=== PATIENT | male | born 1980 | race Caucasian/White ===

== ENCOUNTER 2022-11-26 14:06 | Inpatient (IN) | payer MEDICAID, SELFPAY ==
[2022-11-26] VITALS (12 sets, daily range): BP systolic 94–130; BP diastolic 54–80; PULSE 106–126; RESP 16–97; TEMP 36.3–36.9; O2SAT 16–97; BMI 32.3
--- NOTE | ~2022-11-26 | XR_ITS ---
EXAMINATION: XR CHEST CLINICAL INFORMATION: Left loculated pleural effusion COMPARISON: 12/08/2022 TECHNIQUE: Frontal view of the chest was obtained. XR/XR chest 1V FINDINGS AND IMPRESSION: The tip of the pigtail pleural drainage catheter projects lateral to the left apex. No significant change in the pleural-based opacity along the left hemithorax from pleural thickening and/or loculated effusion. Also, no change in patchy airspace opacity of the left lung and hyperlucency from cavitation in left upper lobe. No new pulmonary abnormalities. Cardiac silhouette is normal in size. No pulmonary edema or other significant change.
--- NOTE | ~2022-11-26 | XR_ITS ---
EXAMINATION: XR CHEST CLINICAL INFORMATION: Loculated left pleural effusion. Recent insertion of left apical chest catheter COMPARISON: Chest x-ray 12/03/2022. CT chest 12/06/2022 TECHNIQUE: Frontal view of the chest was obtained. FINDINGS: The right lung is expanded and clear. Newly placed left apical chest catheter is noted overlying the left posterior fourth rib. There is a pocket of air collection in the left upper midlung region. There is loculated left pleural effusion or moderate pleural thickening. Loss of left lung volume with elevated left hemidiaphragm seen. Heart size is normal. Pulmonary vascularity is normal. XR/XR chest 1V IMPRESSION: 1. Newly placed left apical chest catheter is noted overlying the left posterior fourth rib interval reduction in the air-fluid level or gas collection.. There is a pocket of air collection in the left upper midlung region, unchanged. 2. There is loculated left pleural effusion or moderate pleural thickening. 3. The right lung is clear.
--- NOTE | ~2022-11-26 | XR_ITS ---
EXAMINATION: XR CHEST CLINICAL INFORMATION: Follow-up hydropneumothorax COMPARISON: 11/30/2022 TECHNIQUE: Frontal view of the chest was obtained. FINDINGS: Compared to yesterday's exam, there appears to be more pleural fluid present. A pneumothorax is most likely still present but the pleural border is not well seen on the current study is a chest tube remains in place on the left. The right lung is grossly clear. There is mild cardiac enlargement. XR/XR chest 1V IMPRESSION: Left-sided pleural effusion has increased in size. A pneumothorax is most likely still present although not well seen.
--- NOTE | ~2022-11-26 | CT_ITS ---
EXAMINATION: CT CHEST WITHOUT CONTRAST CLINICAL INFORMATION: Evaluate cavitary lesion COMPARISON: Chest CT 12/14/2022 TECHNIQUE: Multidetector volumetric CT imaging of the chest was done. Axial MIP volume rendering provided. Sagittal and coronal reformatted images were obtained. This CT examination was performed using dose optimization techniques as appropriate, variously including the following: *Automated exposure control *Adjustment of mA and/or kV according to patient size (this includes techniques or standardized protocols for targeted exams where dose is matched to indication/reason for exam; i.e. extremities or head) *Use of iterative reconstruction technique DLP: 353 mGy-cm FINDINGS: LUNGS: Right apical pigtail drain removed in the interval. Similar peripheral airspace consolidation in the left lung most confluent extensively in the left upper lobe and lung apex with redemonstrated air-filled cavitation. Loculated air-fluid collection in the left anterior pleural space is decreased in size in the interval. Overall small amount of left pleural fluid persists. There are bubbles of subcutaneous emphysema along the lateral left chest wall including a linear tract of fluid through the left lateral sixth intercostal space series 5 image 424, new since prior. Small 3 mm right middle lobe pulmonary nodule and perifissural nodule along the horizontal fissure on series 5 image 512 and 519 respectively are unchanged. Mild subsegmental atelectasis in the inferior right lung base. Central airways clear. MEDIASTINUM: No cardiomegaly or pericardial effusion. No thoracic aortic aneurysm. Normal caliber main pulmonary artery. Redemonstrated prominent presumably reactive mediastinal lymph nodes, largest of left prevascular space lymph node measuring 0.9 cm in short axis dimension. CORONARY ARTERY CALCIFICATION: None visualized on this study. PLEURA: Small amount of left pleural fluid and scattered small amount of left pleural gas. No right pleural effusion. AXILLA/chest wall: No lymphadenopathy. Subcutaneous edema and some swelling of the left serratus anterior and adjacent soft tissues, new since prior. No appreciable loculated fluid collection in the left chest wall UPPER ABDOMEN: Unremarkable. OSSEOUS STRUCTURES: No acute fracture or suspicious osseous lesion. CT/CT chest wo IV con IMPRESSION: 1. Similar peripheral airspace consolidation in the left lung most confluent in the left upper lobe and lung apex with cavitation. 2. Small amount of left pleural fluid, decreased in size in the interval. 3. New subcutaneous edema and swelling of the left serratus anterior and adjacent soft tissues. No appreciable loculated fluid collection identified in the left chest wall. 4. Interval removal of left apical pigtail drain.
--- NOTE | ~2022-11-26 | XR_ITS ---
EXAMINATION: XR CHEST CLINICAL INFORMATION: Assess placement of pigtail catheter COMPARISON: 12/11/2022 TECHNIQUE: Frontal view of the chest was obtained. FINDINGS: Small pigtail catheter overlies the left apex. Similar opacification throughout the left lung with associated pleural effusion. Cavitary consolidation of the left upper lung. No definite pneumothorax. The right lung is clear. The cardiomediastinal silhouette is within normal limits. XR/XR chest 1V IMPRESSION: Small pigtail catheter overlies the left apex. Similar position to prior at the location of the cavitary consolidation. No definite pneumothorax. Similar appearance of the left lung with associated pleural effusion and airspace opacity.
--- NOTE | ~2022-11-26 | XR_ITS ---
EXAMINATION: XR CHEST CLINICAL INFORMATION: Loculated left pleural effusion. COMPARISON: Chest 12/07/2022 TECHNIQUE: Frontal view of the chest was obtained. FINDINGS: The right lung is well-expanded and clear. Previously seen lower left large bore chest tube is not seen. There is a previously placed pigtail catheter in the left lung apex with expanded left upper lobe. Left upper lobe consolidation is better visualized at this time. Heart size and pulmonary vascularity is normal. No gross bony abnormality except for mild positional scoliosis. XR/XR chest 1V IMPRESSION: 1. Better expanded left lung with a left apical pigtail catheter is stable. The left lower chest tube catheter has been removed. 2. Right lung is clear.
--- NOTE | ~2022-11-26 | XR_ITS ---
EXAMINATION: XR CHEST CLINICAL INFORMATION: Dyspnea COMPARISON: CT 11/26/2022 TECHNIQUE: Frontal view of the chest was obtained. FINDINGS: There is significantly worsened opacification of the left hemithorax compared to prior, suspected to be due to a combination of pleural effusion and underlying parenchymal opacity. Somewhat rounded region of faint lucency overlying the mid to upper hemithorax may correspond to a cavitary region identified on prior CT with surrounding consolidation. There is additional lucency towards the apex which could represent superimposed pneumothorax. Right lung is well-expanded and appears clear. Cardiomediastinal silhouette is not adequately assessed due to the left hemithorax opacification. No acute osseous findings are seen. XR/XR chest 1V IMPRESSION: Significantly worsened opacification of the left hemithorax, suspected to be due to a combination of pleural effusion and underlying parenchymal opacity. Region of lucency towards the apex raises concern for superimposed pneumothorax, which could be more definitively assessed with CT. This critical result was discussed with Dr. Escobedo on 11/30/2022 3:09 AM, and it was ascertained that the content and urgency of the report was understood at the time of direct communication.
--- NOTE | ~2022-11-26 | CT_ITS ---
EXAMINATION: CT chest wo IV con. CLINICAL INFORMATION: Reason for Exam followup left pleural effusion COMPARISON: Prior CT 11/30/2022. TECHNIQUE: Multidetector volumetric CT imaging of the chest was done. Axial MIP volume rendering provided. Sagittal and coronal reformatted images were obtained. This CT examination was performed using dose optimization techniques as appropriate, variously including the following: *Automated exposure control *Adjustment of mA and/or kV according to patient size (this includes techniques or standardized protocols for targeted exams where dose is matched to indication/reason for exam; i.e. extremities or head) *Use of iterative reconstruction technique CONTRAST: Noncontrasted study. DLP: 766 mGy-cm FINDINGS: SECURITIES TELLER: LINES/TUBES: Left chest tube inserted properly positioned with its tip in the posterior mid pleural space. LUNGS: Redemonstration of cavitating left upper lobe parahilar mass roughly 7 cm, diffuse airspace dense consolidation infiltrate, atelectasis of left lung. Right lung remain relatively spared except for minimal patchy airspace mild infiltrate right upper and lower lobes. AIRWAYS: No large intrabronchial mass. No bronchiectasis, there is air bronchogram left lower lobe, left upper lobe. PLEURA: There is residual small left pleural effusion. Left pneumothorax has not changed. MEDIASTINUM AND MANSOOR: Previously described mediastinal shift resolved. Prominent lymph node in the mediastinum and aortopulmonary window and left hilar, VESSELS: HEART AND PERICARDIUM: Thoracic aorta is normal in size. Heart is normal in size. No pericardial effusion. No significant coronary calcifications. Pulmonary arteries are normal in size. LOWER NECK, AXILLA: The visualized thyroid gland is unremarkable. No axillary mass or adenopathy. VISUALIZED ABDOMEN: Unremarkable CHEST WALL AND BONES: No chest wall mass. The visualized bony thorax is within normal limits. CT/CT chest wo IV con IMPRESSION: * Status post left chest tube placement, previously described mediastinal shift to the right resolved. Left apical pneumothorax unchanged. Improved left pleural effusion. * Redemonstration of cavitating left upper lobe central mass roughly 7 cm. * Profound atelectasis and consolidation of left lung. * Right lung remain relatively spared except for minimal patchy nodular opacity and/or airspace infiltrate right upper and lower lobes. * Prominent mediastinal and left hilar lymph notes.
--- NOTE | ~2022-11-26 | XR_ITS ---
EXAMINATION: XR CHEST CLINICAL INFORMATION: Status post left VATS decortication, POD #4. COMPARISON: Chest radiographs 12/18/2022, 12/17/2022, 12/16/2022, 12/12/2022 TECHNIQUE: Portable upright AP view of the chest was obtained. FINDINGS: There are stable postsurgical changes on the left with mild volume loss, left chest tube, stable small loculated peripheral gas lateral apex, and pleural thickening/loculated fluid. Right lung is clear. The vascularity is normal. There is no pneumothorax. Some scant left subcutaneous emphysema is decreased. The heart is normal in size. XR/XR chest 1V IMPRESSION: 1. Stable postsurgical changes left chest. No pneumothorax. 2. Left subcutaneous emphysema decreased. 3. Right lung clear.
--- NOTE | ~2022-11-26 | XR_ITS ---
EXAMINATION: XR CHEST CLINICAL INFORMATION: Status post left decortication COMPARISON: 12/12/2012 TECHNIQUE: Frontal view of the chest was obtained. FINDINGS: Cardiac leads overlie the chest. Left-sided chest tube remains in place. There is increased subcutaneous emphysema along the lateral left chest wall. Redemonstration of peripheral opacity of the left lung with opacification extending to the apex. The right lung is clear. The cardiomediastinal silhouette is unchanged. XR/XR chest 1V IMPRESSION: Left-sided chest tube remains in place. Increased subcutaneous emphysema along the lateral left chest wall. Persistent peripheral opacity of the left lung.
--- NOTE | ~2022-11-26 | CT_ITS ---
PROCEDURE: CT GUIDED INSERTION, PLEURAL TUNNEL CATHETER CLINICAL INFORMATION: Left lung empyema, upper lobe pneumonia with a left chest tube. Now presents with left upper lung air-fluid level. COMPARISON: None TECHNIQUE: Following explaining CT fluoroscopy-guided placement of left upper lobe chest tube catheter procedure, benefits and risks, a written consent was obtained. Patient was placed supine on CT table and preliminary CT imaging was obtained through the upper chest. An optimal axial CT plane was selected and markers were placed along the left anterolateral chest and repeat CT imaging was performed. Optimal lead marker was selected and marked on the skin. The marked site was cleaned and draped in usual sterile manner with 2% chlorhexidine solution. 1% lidocaine was injected at puncture site. Through a small skin incision a long 5 Cymro Yueh catheter was advanced from the skin into the left apical air-fluid collection under fluoroscopic guidance. After observing needle tip in the center of the air-fluid collection, the stylet was withdrawn and 0.035 J-wire was placed within left upper lobe and the needle was withdrawn. A 5 Cymro APD catheter with a stiffener was inserted over the guidewire and placed within the left upper lobe. The guidewire and stiffener were removed and the thread was pulled making sure the pigtail was formed. The pigtail was connected to waterseal equipment via connecting cannula. The catheter was anchored to the skin with 3-0 nylon nonabsorbable sutures. Sterile dressing applied postprocedure. Patient tolerated procedure extremely well. Conscious sedation was utilized during the exam and patient monitored by IR nursing and radiologist for 20 minutes during the exam. CT examination was performed using dose optimization techniques as appropriate, variously including the following: *Automated exposure control *Adjustment of mA and/or kV according to patient size (this includes techniques or standardized protocols for targeted exams where dose is matched to indication/reason for exam; i.e. extremities or head) *Use of iterative reconstruction technique DLP: 589 mGy-cm FINDINGS: On preliminary CT imaging there is large bore left chest tube catheter. There is chronic scarring/atelectasis and pneumonia in the left lower lobe. There is air-fluid level in the left upper lobe. There is a new pigtail catheter inserted in the left upper lobe air-fluid level collection. CT/CT chest tube placement IMPRESSION: Successful insertion of a [address] Cymro APD catheter under CT fluoroscopic guidance with its tip in the left upper lobe air-fluid level collection.
--- NOTE | ~2022-11-26 | XR_ITS ---
EXAMINATION: XR CHEST CLINICAL INFORMATION: Hypoxia COMPARISON: Chest 12/01/2022 TECHNIQUE: Frontal view of the chest was obtained. FINDINGS: The lungs are hypoexpanded with left lower lobe consolidation. A left chest tube remains in the mid chest with persistent left upper lung pneumothorax. The right lung remains clear and expanded. Heart size and pulmonary vascularity is normal. No gross bony abnormality seen. XR/XR chest 1V IMPRESSION: Left lower lobe consolidation. Left chest tube remains in the mid chest with a left upper lung pneumothorax. No change from 12/01/2022.
--- NOTE | ~2022-11-26 | XR_ITS ---
EXAMINATION: XR CHEST CLINICAL INFORMATION: Status post chest tube placement. COMPARISON: Chest radiograph 11/30/2022 at 2:[address] chest 11/30/2022 at 11:51 AM. TECHNIQUE: Frontal view of the chest was obtained. FINDINGS: Redemonstration of a left sided hydropneumothorax with decreased amount of fluid but increased amount of air compared to priors following placement of a chest tube. Again noted near complete opacification of the left lung, not convincingly changed. The right lung is clear. Stable appearance of the cardiomediastinal silhouette. No acute osseous abnormalities. XR/XR chest 1V IMPRESSION: 1. Left-sided hydropneumothorax with decreased amount of fluid but increased amount of air compared to priors following placement of a chest tube. 2. Stable near complete opacification of the left lung.
--- NOTE | ~2022-11-26 | XR_ITS ---
EXAMINATION: XR CHEST CLINICAL INFORMATION: Postop day 3 status post left VATS decortication. COMPARISON: 12/17/2022 TECHNIQUE: Frontal view of the chest was obtained. FINDINGS: Left-sided chest tube remains in place. Decreasing subcutaneous emphysema of the left chest wall. Decreased volume of the left lung, similar to prior with peripheral opacity extending to the apex. Known loculated pleural effusion. Similar gas at the apex. The right lung is clear. The cardiomediastinal silhouette is unchanged. XR/XR chest 1V IMPRESSION: No significant change from prior. Left-sided chest tube remains in place. Loculated left pleural effusion. Similar gas at the apex.
--- NOTE | ~2022-11-26 | XR_ITS ---
EXAMINATION: XR chest 1V CLINICAL INFORMATION: Reason for Exam Assess left pleural effusion S/P TPA therapy X 2. COMPARISON: Prior study one day earlier. TECHNIQUE: XR chest 1V Tubes and lines: None Lungs and pleura: Redemonstration of near complete opacification of the left hemithorax sparing. Left lung apex has not significantly changed, suggesting probably large pleural effusion, possible underlying pulmonary infiltrate and/or atelectasis. Right lung remain clear. Left chest tube remain in place. Left apical pneumothorax unchanged. Heart and mediastinum: The mediastinum is within normal limits.. Bones/soft tissue: Skeletal structures included are normal for patient's age. XR/XR chest 1V IMPRESSION: There has been no significant change, Redemonstration of near total opacification of the left hemithorax due to underlying pleural effusion and underlying atelectasis. Stable left pneumothorax. Left chest tube remain in place.
--- NOTE | ~2022-11-26 | CT_ITS ---
EXAMINATION: CT CHEST WITHOUT CONTRAST CLINICAL INFORMATION: Worsening cavitary pneumonia. Question pneumothorax. COMPARISON: 11/26/2022 TECHNIQUE: Multidetector volumetric CT imaging of the chest was done. Axial MIP volume rendering provided. Sagittal and coronal reformatted images were obtained. This CT examination was performed using dose optimization techniques as appropriate, variously including the following: *Automated exposure control. *Adjustment of mA and/or kV according to patient size (this includes techniques or standardized protocols for targeted exams where dose is matched to indication/reason for exam; i.e. extremities or head). *Use of iterative reconstruction technique. DLP: 388 mGy-cm FINDINGS: LUNGS: Patient has developed a large hydropneumothorax with near complete opacification of the left hemithorax and mass effect and midline structure shift to the right. There appears be occlusion of the distal left mainstem bronchus. Patient has also developed multiple regions of ground-glass opacification within the right lung. There are also a few more solid right lower lobe densities consistent with atelectasis. Region of necrotic disease again noted within the left lung. MEDIASTINUM: There is mediastinal shift to the right. Visualized portions of the thyroid gland appear unremarkable. Heart normal size. There is minimal pericardial fluid present. No coronary artery calcification is seen. No thoracic aortic aneurysm. There is an enlarged aortopulmonic window lymph node measuring 1.1 cm in short axis. There are other mediastinal lymph nodes present but not pathologically enlarged. It is difficult to evaluate the left hilum for mass or adenopathy due to the consolidation. There is some fat stranding seen within the mediastinum. CORONARY ARTERY CALCIFICATION: None visualized on this study. PLEURA: There is a large left hydropneumothorax. AXILLA: No lymphadenopathy. UPPER ABDOMEN: Unremarkable. OSSEOUS STRUCTURES: Unremarkable. CT/CT chest wo IV con IMPRESSION: 1. Progression in consolidation of the left lung with large hydropneumothorax as well as region of necrotic lung. Bronchoscopy would be of help in better evaluation of the left bronchial system and possible mucous plug as well as possible drainage with chest tube placement to assist in lung re-expansion. 2. Shift of mediastinal structures to the right with developing right lung disease as described. Fleischner guidelines were followed.
--- NOTE | ~2022-11-26 | CT_ITS ---
EXAMINATION: CT CHEST WITHOUT CONTRAST CLINICAL INFORMATION: Left loculated pleural effusion. COMPARISON: 12/09/2022 and studies dating back to 11/26/2022. TECHNIQUE: Multidetector volumetric CT imaging of the chest was done. Axial MIP volume rendering provided. Sagittal and coronal reformatted images were obtained. This CT examination was performed using dose optimization techniques as appropriate, variously including the following: *Automated exposure control *Adjustment of mA and/or kV according to patient size (this includes techniques or standardized protocols for targeted exams where dose is matched to indication/reason for exam; i.e. extremities or head) *Use of iterative reconstruction technique DLP: 269 mGy-cm FINDINGS: LUNGS: Central airways are patent. No right-sided bronchial wall thickening or bronchiectasis is appreciated. No confluent parenchymal disease within the right lung is seen. Sub-4 mm densities are present. There is a 5 mm noncalcified nodule seen within the right middle lobe on image [address] series #5. There are a few stable ground-glass opacities seen within the right hemithorax. There is a 7 mm perifissural density consistent with lymph node along the junctions of the right main and horizontal fissures seen on image 460 of 749. This is stable in appearance. There is a 4 mm subpleural density seen within the right lower lobe on image 328 of 749. Within the left lung there is no significant change appreciated from study of 12/09/2022. There is mildly increased pleural density about the lateral left chest wall superiorly likely related to slight increase in loculated pleural fluid in this location. Small gauge left-sided chest tube is seen about the left apex. There is left upper lobe consolidation and some cavitation present. Bronchial wall thickening is present. MEDIASTINUM: Visualized thyroid gland appears unremarkable. Heart normal size. Minimal pericardial fluid is seen. No thoracic aortic aneurysm is present. AP window lymphadenopathy is again seen without significant change. CORONARY ARTERY CALCIFICATION: None visualized on this study. PLEURA: There is marked pleural thickening/loculated effusion in the left hemithorax. AXILLA: No lymphadenopathy. UPPER ABDOMEN: Unremarkable. OSSEOUS STRUCTURES: There appears to be previous right shoulder surgery. No suspicious destructive bony lesions are identified. CT/CT chest wo IV con IMPRESSION: Similar appearance to cavitary left upper lobe lung disease with chest tube in place. No interval decrease in size of the loculated pleural fluid with question mild increase in fluid laterally. No significant change in left aortopulmonary window lymphadenopathy. Fleischner guidelines were followed.
--- NOTE | ~2022-11-26 | CT_ITS ---
EXAMINATION: CT CHEST WITHOUT CONTRAST CLINICAL INFORMATION: Left hydropneumothorax. COMPARISON: Chest CT from 11/26/2022, 12/04/2022 and 12/06/2022. TECHNIQUE: Multidetector volumetric CT imaging of the chest was done. Axial MIP volume rendering provided. Sagittal and coronal reformatted images were obtained. This CT examination was performed using dose optimization techniques as appropriate, variously including the following: *Automated exposure control *Adjustment of mA and/or kV according to patient size (this includes techniques or standardized protocols for targeted exams where dose is matched to indication/reason for exam; i.e. extremities or head) *Use of iterative reconstruction technique DLP: 493 mGy-cm FINDINGS: LUNGS AND PLEURA: Mild frothy secretions layer along the posterior tracheal wall and proximal left mainstem bronchus. Interval mild improvement in patchy groundglass opacity of the right upper lobe compared to 12/06/2022. A 0.5 cm nodular focus in the right middle lobe has slightly decreased in size (image 378, series 5). Interval increased groundglass opacity around what is likely a lymph node along the distal right major fissure. No right-sided pleural effusion. Again noted is the left upper lobe consolidation and cavitation from pneumonia with surrounding groundglass opacity and interstitial thickening. Multiple linear, streaky opacities of atelectasis in the left lung, mildly improved compared to 12/06/2022. The tip of the pigtail drainage catheter projects lateral to the left upper lobe. Trace residual loculated pleural fluid overlies the anterolateral aspect of the left upper lobe. Also, mild residual loculated pleural fluid projects lateral to the lingula. The volume of loculated pleural fluid posteromedial to the left upper lobe and posteromedial to the left lower lobe is similar compared to 12/06/2022. CARDIOVASCULAR: The heart size is normal. No pericardial effusion. Pulmonary arteries and thoracic aorta are normal in caliber. CORONARY ARTERY CALCIFICATION: None. MEDIASTINUM AND LOWER NECK: The esophagus and thyroid gland unremarkable. LYMPHATICS: Mild lymphadenopathy within the mediastinum is unchanged compared to 12/06/2022. UPPER ABDOMEN: Mild splenomegaly (spleen measures 13.8 cm AP dimension). Adrenal glands are normal. SKELETAL AND CHEST WALL: Thoracic vertebra have normal density, height and alignment. The disc spaces are normal. No suspicious bone lesions. Trace fluid and foci of gas in soft tissue of the left lateral chest wall corresponds to location of previously placed, removed chest tube. CT/CT chest wo IV con IMPRESSION: * The cavitary left upper lobe pneumonia remains similar in appearance for a 12/06/2022. * Significant interval decreased size of the loculated pleural fluid anterolateral to left upper lobe after pigtail drainage catheter placement. * Otherwise, other areas of loculated pleural fluid of the left hemithorax remain similar compared to 12/06/2022. * Mild improvement in patchy opacities of pneumonitis within the right upper lobe. No right-sided pleural effusion. * Persistent mild lymphadenopathy is present within the mediastinum.
--- NOTE | ~2022-11-26 | CT_ITS ---
EXAMINATION: CT CHEST WITHOUT CONTRAST CLINICAL INFORMATION: Upper respiratory symptoms x2 weeks COMPARISON: Chest radiograph performed same day TECHNIQUE: Multidetector volumetric CT imaging of the chest was done. Axial MIP volume rendering provided. Sagittal and coronal reformatted images were obtained. This CT examination was performed using dose optimization techniques as appropriate, variously including the following: *Automated exposure control *Adjustment of mA and/or kV according to patient size (this includes techniques or standardized protocols for targeted exams where dose is matched to indication/reason for exam; i.e. extremities or head) *Use of iterative reconstruction technique DLP: 503 mGy-cm FINDINGS: CHEST WALL/AXILLA: No axillary lymphadenopathy. LUNGS: An approximately 6.8 cm cavitating left upper lobe pulmonary mass with surrounding groundglass with crazy paving. Multiple additional solid pulmonary nodules, predominantly throughout the left lung many with central cavitation, are also seen including a 2.9 cm centrally cavitary left upper lobe pulmonary nodule, 5:143 and a 2.0 cm centrally cavitary left upper lobe pulmonary nodule, 5:172, with few additional scattered areas of groundglass and consolidation. There is mild interlobular septal thickening in the left lung which may reflect trace superimposed edema. MEDIASTINUM: Heart is normal in size. No mediastinal lymphadenopathy. No hilar lymphadenopathy. CORONARY ARTERY CALCIFICATION: No significant coronary artery calcification appreciated on this exam. PLEURA: Small left pleural effusion. UPPER ABDOMEN: Unremarkable OSSEOUS STRUCTURES: Unremarkable. CT/CT chest wo IV con IMPRESSION: An approximately 6.8 cm centrally cavitating left upper lobe pulmonary mass with surrounding groundglass and crazy paving. Multiple additional solid pulmonary nodules are seen predominantly throughout the left lung, many with central cavitation as well as few scattered areas of groundglass and consolidation. Differential considerations would include both infectious/inflammatory or neoplastic etiology, including pulmonary tuberculosis, or other infectious etiology, including atypical infections and septic emboli, granulomatous etiology, or malignant etiology. Recommend correlation with clinical symptoms and consider further evaluation with bronchoscopy. Small left pleural effusion with trace left pulmonary edema. Fleischner guidelines were followed. The findings and recommendations were discussed with Dr. Beatty by telephone at 11/26/2022 8:33 PM and it was ascertained that the content and urgency of the report was understood at the time of direct communication.
--- NOTE | ~2022-11-26 | XR_ITS ---
EXAMINATION: XR CHEST CLINICAL INFORMATION: Evaluate left-sided hydropneumothorax. COMPARISON: 12/09/2022 TECHNIQUE: Frontal view of the chest was obtained. FINDINGS: No new abnormalities compared to 12/09/2022. Again noted is consolidation and cavitary lucency of left upper lobe, left-sided pleural thickening/effusion and several streaky opacities of atelectasis of the left mid to lower lung. The right lung is well expanded. The groundglass opacities of the right lung observed on CT imaging are not radiographically visible. Cardiomediastinal silhouette remains normal in size and contour. The tip of a pigtail pleural change catheter projects lateral to the left lung apex. XR/XR chest 1V IMPRESSION: * There is stable appearance of pleural thickening/loculated pleural effusion of the left hemithorax. Pigtail drainage catheter is stable position, projecting lateral to the left apex. * No change in cavitary left upper lobe pneumonia compared to 12/09/2022.
--- NOTE | ~2022-11-26 | XR_ITS ---
EXAMINATION: XR CHEST CLINICAL INFORMATION: Cough and chest pain. COMPARISON: None TECHNIQUE: 2 views of the chest were obtained. FINDINGS: The lungs are expanded with left upper lobe consolidation. Rest lungs are clear. The heart size and perivascular is normal. No gross bony abnormality seen. XR/XR chest 2V IMPRESSION: Left upper lobe consolidation/infiltrate.
--- NOTE | ~2022-11-26 | XR_ITS ---
EXAMINATION: XR CHEST CLINICAL INFORMATION: Postop day 2 status post L VATS mechanical decortication. COMPARISON: 12/16/2022 TECHNIQUE: Frontal view of the chest was obtained. FINDINGS: Left-sided chest tube remains in place. The right lung is well-expanded. Persistent subcutaneous emphysema along the left chest wall. Peripheral opacity of the left lung remains, similar to prior. This has the appearance of a loculated effusion. Possible hydropneumothorax component at the apex. The cardiomediastinal silhouette is unchanged. XR/XR chest 1V IMPRESSION: No significant change from prior. Loculated left pleural effusion with possible hydropneumothorax at the apex. Left chest tube remains in place. Persistent subcutaneous emphysema.
--- NOTE | 2022-11-26 14:11 | ECG_ITS ---
Test Reason : CP Blood Pressure : / mmHG Vent. Rate : 121 BPM Atrial Rate : 121 BPM P-R Int : 134 ms QRS Dur : 110 ms QT Int : 352 ms P-R-T Axes : 065 063 013 degrees QTc Int : 499 ms Sinus tachycardia Minimal voltage criteria for LVH, may be normal variant ( [place] product ) Abnormal ECG No previous ECGs available Referred By: Generic ED Physician Electronically Signed By:DREA CHAU
--- NOTE | 2022-11-26 14:11 | ED.GENADULT ---
HPI - General Adult General Chief complaint: Chest Pain <ANURAG Chan - Last Filed: 11/26/22 14:15> Stated complaint: chest pain <ANURAG Chan - Last Filed: 11/26/22 14:15> Time Seen by Provider: 11/26/22 15:57 <ANURAG Chan - Last Filed: 11/26/22 14:15> Source: patient <Carrie Rodriguez NP - Last Filed: 11/26/22 19:51> Mode of arrival: ambulatory <Carrie Rodriguez NP - Last Filed: 11/26/22 19:51> Limitations: no limitations <Carrie Rodriguez NP - Last Filed: 11/26/22 19:51> History of Present Illness HPI narrative: 42-year-old male presents with 2 weeks of upper respiratory symptoms, shortness of breath, cough and chest pain. States that the chest pain has been present for about 1 week. Patient states that he cannot sleep because of coughing, and just feels unwell. He has not been able to eat and drink because of this illness. He is on Suboxone which he takes daily. <Carrie Rodriguez NP - Last Filed: 11/26/22 19:51> Onset (ago): week(s) (2) <Carrie Rodriguez NP - Last Filed: 11/26/22 19:51> Location: chest <Carrie Rodriguez NP - Last Filed: 11/26/22 19:51> Radiation: non-radiation <Carrie Rodriguez NP - Last Filed: 11/26/22 19:51> Severity: moderate <Carrie Rodriguez NP - Last Filed: 11/26/22 19:51> Severity scale (1-10): 7 <Carrie Rodriguez NP - Last Filed: 11/26/22 19:51> Quality: aching <Carrie Rodriguez NP - Last Filed: 11/26/22 19:51> Pain Consistency: constant <Carrie Rodriguez NP - Last Filed: 11/26/22 19:51> Relieving factors: none <Carrie Rodriguez NP - Last Filed: 11/26/22 19:51> Exacerbating factors: eating, movement and other (Speaking) <Carrie Rodriguez NP - Last Filed: 11/26/22 19:51> Associated symptoms: cough, diaphoresis, fever/chills, loss of appetite, malaise and shortness of breath <Carrie Rodriguez NP - Last Filed: 11/26/22 19:51> Treatments prior to arrival: none <Carrie Rodriguez NP - Last Filed: 11/26/22 19:51> Related Data Home medications: Home Medications Medication Instructions Recorded Confirmed bisacodyl 5 mg tablet,delayed 5 mg PO BEDTIME 11/26/22 11/26/22 release buprenorphine 12 mg-naloxone 3 mg 0.5 film buccal TID@0600,1000,1400 11/26/22 11/26/22 sublingual film (Suboxone) buprenorphine 12 mg-naloxone 3 mg 0.5 strip sublingual DAILY@1800 11/26/22 11/26/22 sublingual film (Suboxone) buprenorphine 8 mg-naloxone 2 mg 1 film buccal BEDTIME 11/26/22 11/26/22 sublingual film (Suboxone) cetirizine 10 mg tablet 10 mg PO BEDTIME PRN Allergy 11/26/22 11/26/22 Symptoms divalproex 500 mg tablet,delayed 4 tab PO BEDTIME 11/26/22 11/26/22 release docusate sodium 100 mg capsule 100 mg PO BEDTIME 11/26/22 11/26/22 ibuprofen 800 mg tablet 800 mg PO Q6H PRN Back Pain 11/26/22 11/26/22 mirtazapine 45 mg tablet 1 tab PO BEDTIME 11/26/22 11/26/22 olanzapine 5 mg tablet 2 tab PO BEDTIME 11/26/22 11/26/22 prazosin 2 mg capsule 2 mg PO BEDTIME 11/26/22 11/26/22 <ANURAG Chan - Last Filed: 11/26/22 14:15> Allergies/adverse reactions: Allergies Allergy/AdvReac Type Severity Reaction Status Date / Time quetiapine [From Seroquel] Allergy Chest Pain Verified 11/26/22 17:13 <ANURAG Chan - Last Filed: 11/26/22 14:15> Review of Systems Review of Systems: Constitutional: No Fever, No Chills ENT/Mouth: No Ear Pain, No Hoarseness, No sore throat Eyes: No Eye Pain, No Swelling, No Redness, No Foreign Body Cardiovascular: No Chest Pain, No SOB Respiratory: No Cough, No Dyspnea Gastrointestinal: No Nausea, No Vomiting, No Diarrhea, No abdominal Pain Genitourinary: No Dysuria, No Hematuria Musculoskeletal: positive joint pain, No Myalgias, No Joint Swelling Skin: No Skin lacerations, No rash Neuro: No Weakness, No Numbness, No Paresthesias, No Loss of Consciousness, No Dizziness, No Headache Psych: No Anxiety/Panic, No Depression Heme/Lymph: no easy bruising, no Lymphadenopathy Endocrine: No Polyuria, No Polydipsia <Carrie Rodriguez NP - Last Filed: 11/26/22 19:51> Yes all other systems are reviewed and are negative <Carrie Rodriguez NP - Last Filed: 11/26/22 19:51> PMFSH Past Medical History Attestation statement: The following information was validated with the patient. <Carrie Rodriguez NP - Last Filed: 11/26/22 19:51> Source: old records reviewed <Carrie Rodriguez NP - Last Filed: 11/26/22 19:51> Medical History: Medical History Anxiety Bipolar 1 disorder PTSD (post-traumatic stress disorder) Substance use disorder <ANURAG Chan - Last Filed: 11/26/22 14:15> Social History Social History: Social History Alcohol intake: never Patient Tobacco Use Status: Former Tobacco user Smoked in Last 30 Days: Yes Use of substances other than those prescribed or required for medical reasons: Yes Substance Use Type: Marijuana Advance Directives: No Nutrition Risks: No Nutritional Risk <ANURAG Chan - Last Filed: 11/26/22 14:15> Physical Exam ED Vital Signs: Vital Signs - 24 hr 11/26/22 14:15 11/26/22 14:38 11/26/22 15:47 Temperature 97.4 F 98.0 F Pulse Rate 126 H 120 H 120 H Respiratory Rate 20 21 H 22 H Blood Pressure 94/54 L 94/67 115/64 Pulse Oximetry 94 94 92 Oxygen Delivery Method Room Air Room Air Nasal Cannula Oxygen Flow Rate 2 11/26/22 16:27 11/26/22 16:43 11/26/22 16:44 Temperature 98.0 F Pulse Rate 117 H 117 H Respiratory Rate 22 H 97 H 17 Blood Pressure 99/69 Pulse Oximetry 96 Oxygen Delivery Method Nasal Cannula Oxygen Flow Rate 3 11/26/22 18:17 Temperature 98 F Pulse Rate 118 H Respiratory Rate 16 Blood Pressure 117/77 Pulse Oximetry 97 Oxygen Delivery Method Nasal Cannula Oxygen Flow Rate 4 BMI result Body Mass Index 32.3 <ANURAG Chan - Last Filed: 11/26/22 14:15> Vital Signs - 24 hr 11/26/22 14:15 11/26/22 14:38 11/26/22 15:47 Temperature 97.4 F 98.0 F Pulse Rate 126 H 120 H 120 H Respiratory Rate 20 21 H 22 H Blood Pressure 94/54 L 94/67 115/64 Pulse Oximetry 94 94 92 Oxygen Delivery Method Room Air Room Air Nasal Cannula Oxygen Flow Rate 2 11/26/22 16:27 11/26/22 16:43 11/26/22 16:44 Temperature 98.0 F Pulse Rate 117 H 117 H Respiratory Rate 22 H 97 H 17 Blood Pressure 99/69 Pulse Oximetry 96 Oxygen Delivery Method Nasal Cannula Oxygen Flow Rate 3 11/26/22 18:17 Temperature 98 F Pulse Rate 118 H Respiratory Rate 16 Blood Pressure 117/77 Pulse Oximetry 97 Oxygen Delivery Method Nasal Cannula Oxygen Flow Rate 4 BMI result Body Mass Index 32.3 <Carrie Rodriguez NP - Last Filed: 11/26/22 19:51> Appearance: Alert. Oriented X3. Moderate distress. Eyes: Pupils equal, round and reactive to light. ENT: Pharynx normal. Neck: Normal inspection. Neck supple. CVS: Tachycardic heart rate and rhythm. Respiratory: Tachypneic with moderate respiratory distress. Coarse lung sounds throughout. Abdomen: Soft and nontender. Skin: Skin warm and dry. Normal skin color. Normal skin turgor. Extremities: No lower extremity edema. Gait not assessed for safety. Neuro: No motor deficit. No sensory deficit. Cranial nerves 2-12 intact <Carrie Rodriguez NP - Last Filed: 11/26/22 19:51> Course Course Course Narrative: RME performed by Katya Honeycutt PA-C. Patient is a 42 year old male presenting to the emergency department with chest pain. Patient states that over the last week he has been sick with a cough and not feeling well. Labs, EKG, chest XR, swabs, ordered. Patient placed back in the waiting room pending results and room availability. <ANURAG Chan Last Filed: 11/26/22 14:15> RME performed by Katya Honeycutt PA-C. Patient is a 42 year old male presenting to the emergency department with chest pain. Patient states that over the last week he has been sick with a cough and not feeling well. Labs, EKG, chest XR, swabs, ordered. Patient placed back in the waiting room pending results and room availability. 16:03 patient is tachycardic in the 120s, requiring O2 at 2 L and 90%, chest x-ray indicates pneumonia. Blood pressure was 94/54 upon presentation with heart rate of 126. Will start fluid resuscitation, antibiotics, lactic, cultures at this time. 16:20 42-year-old male presents with 2 weeks of upper respiratory symptoms, states that he is having a difficult time breathing, and he has been coughing so much that he cannot patient is on methadone, and is not the best historian. He is requiring O2 at this time to keep his oxygen saturation at 90%, he normally does not wear oxygen at home. Sepsis alert was called, fluid resuscitation of of 3 L, for appropriate body weight. White count is 43.5. Respiratory called for high flow, and albuterol treatments. BUN 29, creatinine 2.80, I do not have prior labs or records for this patient. 16:40 D-dimer coagulated prior to lab drawn. This D-dimer that is recorded is inaccurate. Source of tachycardia most likely sepsis. 17:28 discussion with hospitalist, plan of care is to admit for pneumonia, hypoxia and sepsis. <Carrie Rodriguez NP - Last Filed: 11/26/22 19:51> Consultations Consultation #1: Zan <Carrie Rodriguez NP - Last Filed: 11/26/22 19:51> Medications Administered Discontinued Medications Generic Name Dose Route Start Last Admin Trade Name Freq PRN Reason Stop Dose Admin Albuterol Sulfate 10 mg 11/26/22 16:27 11/26/22 16:43 Albuterol Sulfate (0.083%) 2.5 Mg/3 Ml Vial.Neb INHALE 11/26/22 16:28 10 mg ONCE ONE Administration Sodium Chloride 1,000 mls @ 999 mls/hr 11/26/22 16:15 11/26/22 17:39 Ns IVCONT 11/26/22 17:15 Infused .Q1H1M MAHENDRA Infusion Ceftriaxone Sodium 1 gm/ 50 mls @ 100 mls/hr 11/26/22 16:04 11/26/22 17:02 Sodium Chloride IV 11/26/22 16:33 Infused ONCE ONE Infusion Azithromycin 500 mg/ Sodium 250 mls @ 125 mls/hr 11/26/22 16:04 11/26/22 19:25 Chloride IV 11/26/22 18:03 Infused ONCE ONE Infusion Sodium Chloride 1,000 mls @ 999 mls/hr 11/26/22 16:15 11/26/22 18:30 Ns IVCONT 11/26/22 17:15 Infused .Q1H1M MAHENDRA Infusion Sodium Chloride 1,000 mls @ 999 mls/hr 11/26/22 16:30 11/26/22 19:26 Ns IVCONT 11/26/22 17:30 Infused .Q1H1M MAHENDRA Infusion Methylprednisolone Sodium Succinate 125 mg 11/26/22 16:24 11/26/22 17:01 Methylprednisolone Sod Succ 125 Mg/2 Ml Vial IVPUSH 11/26/22 16:25 125 mg ONCE ONE Administration <ANURAG Chan - Last Filed: 11/26/22 14:15> Medications Administered Discontinued Medications Generic Name Dose Route Start Last Admin Trade Name Tundeq PRN Reason Stop Dose Admin Albuterol Sulfate 10 mg 11/26/22 16:27 11/26/22 16:43 Albuterol Sulfate (0.083%) 2.5 Mg/3 Ml Vial.Neb INHALE 11/26/22 16:28 10 mg ONCE ONE Administration Sodium Chloride 1,000 mls @ 999 mls/hr 11/26/22 16:15 11/26/22 17:39 Ns IVCONT 11/26/22 17:15 Infused .Q1H1M MAHENDRA Infusion Ceftriaxone Sodium 1 gm/ 50 mls @ 100 mls/hr 11/26/22 16:04 11/26/22 17:02 Sodium Chloride IV 11/26/22 16:33 Infused ONCE ONE Infusion Azithromycin 500 mg/ Sodium 250 mls @ 125 mls/hr 11/26/22 16:04 11/26/22 19:25 Chloride IV 11/26/22 18:03 Infused ONCE ONE Infusion Sodium Chloride 1,000 mls @ 999 mls/hr 11/26/22 16:15 11/26/22 18:30 Ns IVCONT 11/26/22 17:15 Infused .Q1H1M MAHENDRA Infusion Sodium Chloride 1,000 mls @ 999 mls/hr 11/26/22 16:30 11/26/22 19:26 Ns IVCONT 11/26/22 17:30 Infused .Q1H1M MAHENDRA Infusion Methylprednisolone Sodium Succinate 125 mg 11/26/22 16:24 11/26/22 17:01 Methylprednisolone Sod Succ 125 Mg/2 Ml Vial IVPUSH 11/26/22 16:25 125 mg ONCE ONE Administration <Carrie Rodriguez NP - Last Filed: 11/26/22 19:51> Medical Decision Making Differential Diagnosis Differential Diagnoses: The differential diagnosis associated with the presentation includes <Carrie Rodriguez NP - Last Filed: 11/26/22 19:51> Pneumonia, sepsis, ARDS <Carrie Rodriguez NP - Last Filed: 11/26/22 19:51> Admission/Observation Consideration of admission/observation: Escalation of care including admission/observation considered <Carrie Rodriguez NP - Last Filed: 11/26/22 19:51> Patient requires admission <Crarie Rodriguez NP - Last Filed: 11/26/22 19:51> Consult Healthcare Provider Management of the patient was discussed with: Hospitalist <Carrie Rodriguez NP - Last Filed: 11/26/22 19:51> Lab Data MDM Lab Attestation statement: I reviewed the patient's lab results. <Carrie Rodriguez NP - Last Filed: 11/26/22 19:51> Result Diagrams: 11/26/22 15:59 11/26/22 15:59 <ANURAG Chan - Last Filed: 11/26/22 14:15> Labs: Lab Results 11/26/22 11/26/22 11/26/22 Range/Units 15:41 15:59 15:59 WBC 43.5 H* (4.8-10.8) X10*3/uL RBC 4.47 L (4.60-5.80) X10*6/uL Hgb 12.6 L (14.0-18.0) g/dl Hct 39.6 L (42.0-52.0) % MCV 88.6 (80.0-98.0) fL MCH 28.2 (27.0-33.0) pg MCHC 31.8 (31.0-36.0) g/dl RDW 15.2 (11.0-16.0) % Plt Count 181 (160-400) X10*3/uL MPV 10.7 (9.4-12.4) fL Immature Gran % (Auto) Cancelled Neut % (Auto) Cancelled Lymph % (Auto) Cancelled Woodward % (Auto) Cancelled Eos % (Auto) Cancelled Baso % (Auto) Cancelled Lymph # (Auto) Cancelled Woodward # (Auto) Cancelled Eos # (Auto) Cancelled Baso # (Auto) Cancelled Abs Immat Gran (auto) Cancelled Absolute Neuts (auto) Cancelled Absolute Nucleated RBC 0.020 H (0.0-0.012) X10*3/uL Nucleated RBC % (auto) 0.0 (0.0-0.2) /100WBC Neutrophils % (Manual) 81 H (45-73) % Band Neutrophils % 8 H (3-5) % Lymphocytes % (Manual) 5 L (20-40) % Monocytes % (Manual) 6 (2-11) % Abs Neuts (Manual) 38.7 H (2.0-8.3) X10*3/uL Lymphocytes # (Manual) 2.2 (1.2-4.9) X10*3/uL Monocytes # (Manual) 2.6 H (0.1-1.2) X10*3/uL Toxic Vacuolation PRESENT Platelet Estimate NORMAL (NORMAL) Plt Morphology Comment NORMAL RBC Morphology NORMAL PT INR APTT D-Dimer High Sensitivty NG/ML VBG pH (7.32-7.43) VBG pCO2 mmHg VBG pO2 mmHg VBG HCO3 (22-26) mmol/L VBG O2 Saturation % VBG Base Excess mmol/L Sodium 139 (135-145) mmol/L Potassium 3.5 (3.3-5.1) mmol/L Chloride 99 (96-108) mmol/L Carbon Dioxide 25 (22-29) mmol/L Anion Gap 19 (12-20) BUN 29 H (9-16) mg/dL Creatinine 2.80 H (0.5-1.4) mg/dL Estim Creat Clear Calc 44.9 Estimated GFR 25 Random Glucose 145 H (60-115) mg/dL Lactic Acid (0.5-2.0) mmol/L Lactic Acid F/U @ 2Hr (0.5-2.0) mmol/L Calcium 8.7 (8.4-10.2) mg/dL Magnesium 1.8 (1.6-2.6) mg/dL Total Bilirubin 0.8 (0.0-1.0) mg/dL AST 18 (5-37) U/L ALT 10 (0-40) U/L Alkaline Phosphatase 105 (39-117) U/L Troponin I High Sens (<3.5-35.0) ng/L B-Natriuretic Peptide (<100) pg/mL Total Protein 6.8 (6.5-8.0) g/dL Albumin 3.3 L (3.5-5.0) g/dL Procalcitonin ng/mL Influenza Type A (PCR) NEGATIVE (Negative) Influenza Type B (PCR) NEGATIVE (Negative) RSV RNA Qual (PCR) NEGATIVE (Negative) SARS-CoV-2 RNA (RT-PCR) NEGATIVE (Negative) 11/26/22 11/26/22 11/26/22 Range/Units 15:59 15:59 15:59 WBC (4.8-10.8) X10*3/uL RBC (4.60-5.80) X10*6/uL Hgb (14.0-18.0) g/dl Hct (42.0-52.0) % MCV (80.0-98.0) fL MCH (27.0-33.0) pg MCHC (31.0-36.0) g/dl RDW (11.0-16.0) % Plt Count (160-400) X10*3/uL MPV (9.4-12.4) fL Immature Gran % (Auto) Neut % (Auto) Lymph % (Auto) Woodward % (Auto) Eos % (Auto) Baso % (Auto) Lymph # (Auto) Woodward # (Auto) Eos # (Auto) Baso # (Auto) Abs Immat Gran (auto) Absolute Neuts (auto) Absolute Nucleated RBC (0.0-0.012) X10*3/uL Nucleated RBC % (auto) (0.0-0.2) /100WBC Neutrophils % (Manual) (45-73) % Band Neutrophils % (3-5) % Lymphocytes % (Manual) (20-40) % Monocytes % (Manual) (2-11) % Abs Neuts (Manual) (2.0-8.3) X10*3/uL Lymphocytes # (Manual) (1.2-4.9) X10*3/uL Monocytes # (Manual) (0.1-1.2) X10*3/uL Toxic Vacuolation Platelet Estimate (NORMAL) Plt Morphology Comment RBC Morphology PT INR APTT D-Dimer High Sensitivty NG/ML VBG pH (7.32-7.43) VBG pCO2 mmHg VBG pO2 mmHg VBG HCO3 (22-26) mmol/L VBG O2 Saturation % VBG Base Excess mmol/L Sodium (135-145) mmol/L Potassium (3.3-5.1) mmol/L Chloride (96-108) mmol/L Carbon Dioxide (22-29) mmol/L Anion Gap (12-20) BUN (9-16) mg/dL Creatinine (0.5-1.4) mg/dL Estim Creat Clear Calc Estimated GFR Random Glucose (60-115) mg/dL Lactic Acid (0.5-2.0) mmol/L Lactic Acid F/U @ 2Hr (0.5-2.0) mmol/L Calcium (8.4-10.2) mg/dL Magnesium (1.6-2.6) mg/dL Total Bilirubin (0.0-1.0) mg/dL AST (5-37) U/L ALT (0-40) U/L Alkaline Phosphatase (39-117) U/L Troponin I High Sens < 3.5 (<3.5-35.0) ng/L B-Natriuretic Peptide 60 (<100) pg/mL Total Protein (6.5-8.0) g/dL Albumin (3.5-5.0) g/dL Procalcitonin ng/mL Influenza Type A (PCR) (Negative) Influenza Type B (PCR) (Negative) RSV RNA Qual (PCR) (Negative) SARS-CoV-2 RNA (RT-PCR) (Negative) 11/26/22 11/26/22 11/26/22 Range/Units 15:59 16:02 16:13 WBC (4.8-10.8) X10*3/uL RBC (4.60-5.80) X10*6/uL Hgb (14.0-18.0) g/dl Hct (42.0-52.0) % MCV (80.0-98.0) fL MCH (27.0-33.0) pg MCHC (31.0-36.0) g/dl RDW (11.0-16.0) % Plt Count (160-400) X10*3/uL MPV (9.4-12.4) fL Immature Gran % (Auto) Neut % (Auto) Lymph % (Auto) Woodward % (Auto) Eos % (Auto) Baso % (Auto) Lymph # (Auto) Woodward # (Auto) Eos # (Auto) Baso # (Auto) Abs Immat Gran (auto) Absolute Neuts (auto) Absolute Nucleated RBC (0.0-0.012) X10*3/uL Nucleated RBC % (auto) (0.0-0.2) /100WBC Neutrophils % (Manual) (45-73) % Band Neutrophils % (3-5) % Lymphocytes % (Manual) (20-40) % Monocytes % (Manual) (2-11) % Abs Neuts (Manual) (2.0-8.3) X10*3/uL Lymphocytes # (Manual) (1.2-4.9) X10*3/uL Monocytes # (Manual) (0.1-1.2) X10*3/uL Toxic Vacuolation Platelet Estimate (NORMAL) Plt Morphology Comment RBC Morphology PT INR APTT D-Dimer High Sensitivty NG/ML VBG pH 7.51 H (7.32-7.43) VBG pCO2 31 mmHg VBG pO2 91 mmHg VBG HCO3 24 (22-26) mmol/L VBG O2 Saturation 98.0 % VBG Base Excess 2.7 mmol/L Sodium (135-145) mmol/L Potassium (3.3-5.1) mmol/L Chloride (96-108) mmol/L Carbon Dioxide (22-29) mmol/L Anion Gap (12-20) BUN (9-16) mg/dL Creatinine (0.5-1.4) mg/dL Estim Creat Clear Calc Estimated GFR Random Glucose (60-115) mg/dL Lactic Acid 3.1 H* (0.5-2.0) mmol/L Lactic Acid F/U @ 2Hr (0.5-2.0) mmol/L Calcium (8.4-10.2) mg/dL Magnesium (1.6-2.6) mg/dL Total Bilirubin (0.0-1.0) mg/dL AST (5-37) U/L ALT (0-40) U/L Alkaline Phosphatase (39-117) U/L Troponin I High Sens (<3.5-35.0) ng/L B-Natriuretic Peptide (<100) pg/mL Total Protein (6.5-8.0) g/dL Albumin (3.5-5.0) g/dL Procalcitonin 2.46 ng/mL Influenza Type A (PCR) (Negative) Influenza Type B (PCR) (Negative) RSV RNA Qual (PCR) (Negative) SARS-CoV-2 RNA (RT-PCR) (Negative) 11/26/22 11/26/22 11/26/22 Range/Units 17:36 17:36 18:34 WBC (4.8-10.8) X10*3/uL RBC (4.60-5.80) X10*6/uL Hgb (14.0-18.0) g/dl Hct (42.0-52.0) % MCV (80.0-98.0) fL MCH (27.0-33.0) pg MCHC (31.0-36.0) g/dl RDW (11.0-16.0) % Plt Count (160-400) X10*3/uL MPV (9.4-12.4) fL Immature Gran % (Auto) Neut % (Auto) Lymph % (Auto) Woodward % (Auto) Eos % (Auto) Baso % (Auto) Lymph # (Auto) Woodward # (Auto) Eos # (Auto) Baso # (Auto) Abs Immat Gran (auto) Absolute Neuts (auto) Absolute Nucleated RBC (0.0-0.012) X10*3/uL Nucleated RBC % (auto) (0.0-0.2) /100WBC Neutrophils % (Manual) (45-73) % Band Neutrophils % (3-5) % Lymphocytes % (Manual) (20-40) % Monocytes % (Manual) (2-11) % Abs Neuts (Manual) (2.0-8.3) X10*3/uL Lymphocytes # (Manual) (1.2-4.9) X10*3/uL Monocytes # (Manual) (0.1-1.2) X10*3/uL Toxic Vacuolation Platelet Estimate (NORMAL) Plt Morphology Comment RBC Morphology PT Cancelled 15.1 H INR Cancelled 1.3 H APTT Cancelled 27.2 D-Dimer High Sensitivty NG/ML VBG pH (7.32-7.43) VBG pCO2 mmHg VBG pO2 mmHg VBG HCO3 (22-26) mmol/L VBG O2 Saturation % VBG Base Excess mmol/L Sodium (135-145) mmol/L Potassium (3.3-5.1) mmol/L Chloride (96-108) mmol/L Carbon Dioxide (22-29) mmol/L Anion Gap (12-20) BUN (9-16) mg/dL Creatinine (0.5-1.4) mg/dL Estim Creat Clear Calc Estimated GFR Random Glucose (60-115) mg/dL Lactic Acid (0.5-2.0) mmol/L Lactic Acid F/U @ 2Hr 4.0 H* (0.5-2.0) mmol/L Calcium (8.4-10.2) mg/dL Magnesium (1.6-2.6) mg/dL Total Bilirubin (0.0-1.0) mg/dL AST (5-37) U/L ALT (0-40) U/L Alkaline Phosphatase (39-117) U/L Troponin I High Sens (<3.5-35.0) ng/L B-Natriuretic Peptide (<100) pg/mL Total Protein (6.5-8.0) g/dL Albumin (3.5-5.0) g/dL Procalcitonin ng/mL Influenza Type A (PCR) (Negative) Influenza Type B (PCR) (Negative) RSV RNA Qual (PCR) (Negative) SARS-CoV-2 RNA (RT-PCR) (Negative) <ANURAG Chan - Last Filed: 11/26/22 14:15> Lab Results 11/26/22 11/26/22 11/26/22 Range/Units 15:41 15:59 15:59 WBC 43.5 H* (4.8-10.8) X10*3/uL RBC 4.47 L (4.60-5.80) X10*6/uL Hgb 12.6 L (14.0-18.0) g/dl Hct 39.6 L (42.0-52.0) % MCV 88.6 (80.0-98.0) fL MCH 28.2 (27.0-33.0) pg MCHC 31.8 (31.0-36.0) g/dl RDW 15.2 (11.0-16.0) % Plt Count 181 (160-400) X10*3/uL MPV 10.7 (9.4-12.4) fL Immature Gran % (Auto) Cancelled Neut % (Auto) Cancelled Lymph % (Auto) Cancelled Woodward % (Auto) Cancelled Eos % (Auto) Cancelled Baso % (Auto) Cancelled Lymph # (Auto) Cancelled Woodward # (Auto) Cancelled Eos # (Auto) Cancelled Baso # (Auto) Cancelled Abs Immat Gran (auto) Cancelled Absolute Neuts (auto) Cancelled Absolute Nucleated RBC 0.020 H (0.0-0.012) X10*3/uL Nucleated RBC % (auto) 0.0 (0.0-0.2) /100WBC Neutrophils % (Manual) 81 H (45-73) % Band Neutrophils % 8 H (3-5) % Lymphocytes % (Manual) 5 L (20-40) % Monocytes % (Manual) 6 (2-11) % Abs Neuts (Manual) 38.7 H (2.0-8.3) X10*3/uL Lymphocytes # (Manual) 2.2 (1.2-4.9) X10*3/uL Monocytes # (Manual) 2.6 H (0.1-1.2) X10*3/uL Toxic Vacuolation PRESENT Platelet Estimate NORMAL (NORMAL) Plt Morphology Comment NORMAL RBC Morphology NORMAL PT INR APTT D-Dimer High Sensitivty NG/ML VBG pH (7.32-7.43) VBG pCO2 mmHg VBG pO2 mmHg VBG HCO3 (22-26) mmol/L VBG O2 Saturation % VBG Base Excess mmol/L Sodium 139 (135-145) mmol/L Potassium 3.5 (3.3-5.1) mmol/L Chloride 99 (96-108) mmol/L Carbon Dioxide 25 (22-29) mmol/L Anion Gap 19 (12-20) BUN 29 H (9-16) mg/dL Creatinine 2.80 H (0.5-1.4) mg/dL Estim Creat Clear Calc 44.9 Estimated GFR 25 Random Glucose 145 H (60-115) mg/dL Lactic Acid (0.5-2.0) mmol/L Lactic Acid F/U @ 2Hr (0.5-2.0) mmol/L Calcium 8.7 (8.4-10.2) mg/dL Magnesium 1.8 (1.6-2.6) mg/dL Total Bilirubin 0.8 (0.0-1.0) mg/dL AST 18 (5-37) U/L ALT 10 (0-40) U/L Alkaline Phosphatase 105 (39-117) U/L Troponin I High Sens (<3.5-35.0) ng/L B-Natriuretic Peptide (<100) pg/mL Total Protein 6.8 (6.5-8.0) g/dL Albumin 3.3 L (3.5-5.0) g/dL Procalcitonin ng/mL Influenza Type A (PCR) NEGATIVE (Negative) Influenza Type B (PCR) NEGATIVE (Negative) RSV RNA Qual (PCR) NEGATIVE (Negative) SARS-CoV-2 RNA (RT-PCR) NEGATIVE (Negative) 11/26/22 11/26/22 11/26/22 Range/Units 15:59 15:59 15:59 WBC (4.8-10.8) X10*3/uL RBC (4.60-5.80) X10*6/uL Hgb (14.0-18.0) g/dl Hct (42.0-52.0) % MCV (80.0-98.0) fL MCH (27.0-33.0) pg MCHC (31.0-36.0) g/dl RDW (11.0-16.0) % Plt Count (160-400) X10*3/uL MPV (9.4-12.4) fL Immature Gran % (Auto) Neut % (Auto) Lymph % (Auto) [place] % (Auto) Eos % (Auto) Baso % (Auto) Lymph # (Auto) [place] # (Auto) Eos # (Auto) Baso # (Auto) Abs Immat Gran (auto) Absolute Neuts (auto) Absolute Nucleated RBC (0.0-0.012) X10*3/uL Nucleated RBC % (auto) (0.0-0.2) /100WBC Neutrophils % (Manual) (45-73) % Band Neutrophils % (3-5) % Lymphocytes % (Manual) (20-40) % Monocytes % (Manual) (2-11) % Abs Neuts (Manual) (2.0-8.3) X10*3/uL Lymphocytes # (Manual) (1.2-4.9) X10*3/uL Monocytes # (Manual) (0.1-1.2) X10*3/uL Toxic Vacuolation Platelet Estimate (NORMAL) Plt Morphology Comment RBC Morphology PT INR APTT D-Dimer High Sensitivty NG/ML VBG pH (7.32-7.43) VBG pCO2 mmHg VBG pO2 mmHg VBG HCO3 (22-26) mmol/L VBG O2 Saturation % VBG Base Excess mmol/L Sodium (135-145) mmol/L Potassium (3.3-5.1) mmol/L Chloride (96-108) mmol/L Carbon Dioxide (22-29) mmol/L Anion Gap (12-20) BUN (9-16) mg/dL Creatinine (0.5-1.4) mg/dL Estim Creat Clear Calc Estimated GFR Random Glucose (60-115) mg/dL Lactic Acid (0.5-2.0) mmol/L Lactic Acid F/U @ 2Hr (0.5-2.0) mmol/L Calcium (8.4-10.2) mg/dL Magnesium (1.6-2.6) mg/dL Total Bilirubin (0.0-1.0) mg/dL AST (5-37) U/L ALT (0-40) U/L Alkaline Phosphatase (39-117) U/L Troponin I High Sens < 3.5 (<3.5-35.0) ng/L B-Natriuretic Peptide 60 (<100) pg/mL Total Protein (6.5-8.0) g/dL Albumin (3.5-5.0) g/dL Procalcitonin ng/mL Influenza Type A (PCR) (Negative) Influenza Type B (PCR) (Negative) RSV RNA Qual (PCR) (Negative) SARS-CoV-2 RNA (RT-PCR) (Negative) 11/26/22 11/26/22 11/26/22 Range/Units 15:59 16:02 16:13 WBC (4.8-10.8) X10*3/uL RBC (4.60-5.80) X10*6/uL Hgb (14.0-18.0) g/dl Hct (42.0-52.0) % MCV (80.0-98.0) fL MCH (27.0-33.0) pg MCHC (31.0-36.0) g/dl RDW (11.0-16.0) % Plt Count (160-400) X10*3/uL MPV (9.4-12.4) fL Immature Gran % (Auto) Neut % (Auto) Lymph % (Auto) [place] % (Auto) Eos % (Auto) Baso % (Auto) Lymph # (Auto) [place] # (Auto) Eos # (Auto) Baso # (Auto) Abs Immat Gran (auto) Absolute Neuts (auto) Absolute Nucleated RBC (0.0-0.012) X10*3/uL Nucleated RBC % (auto) (0.0-0.2) /100WBC Neutrophils % (Manual) (45-73) % Band Neutrophils % (3-5) % Lymphocytes % (Manual) (20-40) % Monocytes % (Manual) (2-11) % Abs Neuts (Manual) (2.0-8.3) X10*3/uL Lymphocytes # (Manual) (1.2-4.9) X10*3/uL Monocytes # (Manual) (0.1-1.2) X10*3/uL Toxic Vacuolation Platelet Estimate (NORMAL) Plt Morphology Comment RBC Morphology PT INR APTT D-Dimer High Sensitivty NG/ML VBG pH 7.51 H (7.32-7.43) VBG pCO2 31 mmHg VBG pO2 91 mmHg VBG HCO3 24 (22-26) mmol/L VBG O2 Saturation 98.0 % VBG Base Excess 2.7 mmol/L Sodium (135-145) mmol/L Potassium (3.3-5.1) mmol/L Chloride (96-108) mmol/L Carbon Dioxide (22-29) mmol/L Anion Gap (12-20) BUN (9-16) mg/dL Creatinine (0.5-1.4) mg/dL Estim Creat Clear Calc Estimated GFR Random Glucose (60-115) mg/dL Lactic Acid 3.1 H* (0.5-2.0) mmol/L Lactic Acid F/U @ 2Hr (0.5-2.0) mmol/L Calcium (8.4-10.2) mg/dL Magnesium (1.6-2.6) mg/dL Total Bilirubin (0.0-1.0) mg/dL AST (5-37) U/L ALT (0-40) U/L Alkaline Phosphatase (39-117) U/L Troponin I High Sens (<3.5-35.0) ng/L B-Natriuretic Peptide (<100) pg/mL Total Protein (6.5-8.0) g/dL Albumin (3.5-5.0) g/dL Procalcitonin 2.46 ng/mL Influenza Type A (PCR) (Negative) Influenza Type B (PCR) (Negative) RSV RNA Qual (PCR) (Negative) SARS-CoV-2 RNA (RT-PCR) (Negative) 11/26/22 11/26/22 11/26/22 Range/Units 17:36 17:36 18:34 WBC (4.8-10.8) X10*3/uL RBC (4.60-5.80) X10*6/uL Hgb (14.0-18.0) g/dl Hct (42.0-52.0) % MCV (80.0-98.0) fL MCH (27.0-33.0) pg MCHC (31.0-36.0) g/dl RDW (11.0-16.0) % Plt Count (160-400) X10*3/uL MPV (9.4-12.4) fL Immature Gran % (Auto) Neut % (Auto) Lymph % (Auto) [place] % (Auto) Eos % (Auto) Baso % (Auto) Lymph # (Auto) [place] # (Auto) Eos # (Auto) Baso # (Auto) Abs Immat Gran (auto) Absolute Neuts (auto) Absolute Nucleated RBC (0.0-0.012) X10*3/uL Nucleated RBC % (auto) (0.0-0.2) /100WBC Neutrophils % (Manual) (45-73) % Band Neutrophils % (3-5) % Lymphocytes % (Manual) (20-40) % Monocytes % (Manual) (2-11) % Abs Neuts (Manual) (2.0-8.3) X10*3/uL Lymphocytes # (Manual) (1.2-4.9) X10*3/uL Monocytes # (Manual) (0.1-1.2) X10*3/uL Toxic Vacuolation Platelet Estimate (NORMAL) Plt Morphology Comment RBC Morphology PT Cancelled 15.1 H INR Cancelled 1.3 H APTT Cancelled 27.2 D-Dimer High Sensitivty NG/ML VBG pH (7.32-7.43) VBG pCO2 mmHg VBG pO2 mmHg VBG HCO3 (22-26) mmol/L VBG O2 Saturation % VBG Base Excess mmol/L Sodium (135-145) mmol/L Potassium (3.3-5.1) mmol/L Chloride (96-108) mmol/L Carbon Dioxide (22-29) mmol/L Anion Gap (12-20) BUN (9-16) mg/dL Creatinine (0.5-1.4) mg/dL Estim Creat Clear Calc Estimated GFR Random Glucose (60-115) mg/dL Lactic Acid (0.5-2.0) mmol/L Lactic Acid F/U @ 2Hr 4.0 H* (0.5-2.0) mmol/L Calcium (8.4-10.2) mg/dL Magnesium (1.6-2.6) mg/dL Total Bilirubin (0.0-1.0) mg/dL AST (5-37) U/L ALT (0-40) U/L Alkaline Phosphatase (39-117) U/L Troponin I High Sens (<3.5-35.0) ng/L B-Natriuretic Peptide (<100) pg/mL Total Protein (6.5-8.0) g/dL Albumin (3.5-5.0) g/dL Procalcitonin ng/mL Influenza Type A (PCR) (Negative) Influenza Type B (PCR) (Negative) RSV RNA Qual (PCR) (Negative) SARS-CoV-2 RNA (RT-PCR) (Negative) <Carrie Rodriguez NP - Last Filed: 11/26/22 19:51> Independent Interpretation I performed an independent interpretation of an: EKG and Plain X-Ray <Carrie Rodriguez NP - Last Filed: 11/26/22 19:51> Interpretation: Sinus tachycardia Minimal voltage criteria for LVH, may be normal variant ( [place] product ) Possible Inferior infarct , age undetermined Abnormal ECG No previous ECGs available Vent. rate 121 BPM MI interval 134 ms QRS duration 110 ms QT/QTc 352/499 ms P-R-T axes 65 63 13 26-NOV-2022 14:12:18 <Carrie Rodriguez NP - Last Filed: 11/26/22 19:51> Radiology Impression Discussion of test interpretation with radiology: I have reviewed the radiologist's reading. <Carrie Rodriguez NP - Last Filed: 11/26/22 19:51> Radiologist Impression: EXAMINATION: XR CHEST CLINICAL INFORMATION: Cough and chest pain. COMPARISON: None TECHNIQUE: 2 views of the chest were obtained. FINDINGS: The lungs are expanded with left upper lobe consolidation. Rest lungs are clear. The heart size and perivascular is normal. No gross bony abnormality seen. XR/XR chest 2V IMPRESSION: ?Left upper lobe consolidation/infiltrate. ? <Carrie Rodriguez NP - Last Filed: 11/26/22 19:51> External Record Review External record reviewed: Inpatient record, Outpatient record and Prior outpatient labs <LINDA Hernandez Last Filed: 11/26/22 19:51> Prescription Management I considered prescription management with: Antibiotic <LINDA Hernandez Last Filed: 11/26/22 19:51> Critical Care Time Critical Care Time Critical Care Time: Yes <Carrie Rodriguez NP - Last Filed: 11/26/22 19:51> Total Critical Care Time: 60 <Carrie Rodriguez NP - Last Filed: 11/26/22 19:51> Attestation: I have personally provided critical care time exclusive of time spent on separately billable procedures. Time includes review of laboratory data, radiology results, discussion with consultants, and monitoring for potential decompensation. Interventions were performed as documented. <Carrie Rodriguez NP - Last Filed: 11/26/22 19:51> Discharge Plan Discharge Clinical Impression: Chest pain, Sepsis, Pneumonia, Hypoxia <ANURAG Chan - Last Filed: 11/26/22 14:15> Patient Disposition: Admitted As Inpatient <ANURAG Chan - Last Filed: 11/26/22 14:15>
[2022-11-26 16:07] LABS: Venous Blood Gas Refer to POC result
[2022-11-26 16:07] LABS: VBG Base Excess 2.7 mmol/L; VBG HCO3 24 mmol/L (22-26); VBG pCO2 31 mmHg; VBG pH 7.51 (7.32-7.43); VBG pO2 91 mmHg
[2022-11-26 16:18] LABS: Hemoglobin 12.6 g/dl (14.0-18.0); PLT CLUMP 1
[2022-11-26 16:20] LABS: Alanine Aminotransferase 10 U/L (0-40); Albumin Level 3.3 g/dL (3.5-5.0); Alkaline Phosphatase 105 U/L (39-117); Anion Gap 19 (12-20); Aspartate Amino Transferase 18 U/L (5-37); Bilirubin Total 0.8 mg/dL (0.0-1.0); Blood Urea Nitrogen 29 mg/dL (9-16); Calcium 8.7 mg/dL (8.4-10.2); Carbon Dioxide 25 mmol/L (22-29); Chloride 99 mmol/L (96-108); Creatinine Clr Calc Pharmacy 44.9; Estimated Glomerular Filt Rate 25; Glucose Random 145 mg/dL (60-115); Hematocrit 39.6 % (42.0-52.0); Magnesium 1.8 mg/dL (1.6-2.6); Mean Corpuscular HGB Conc 31.8 g/dl (31.0-36.0); Mean Corpuscular Hemoglobin 28.2 pg (27.0-33.0); Mean Corpuscular Volume 88.6 fL (80.0-98.0); Mean Platelet Volume 10.7 fL (9.4-12.4); Potassium 3.5 mmol/L (3.3-5.1); Red Blood Count 4.47 X10*6/uL (4.60-5.80); Red Cell Distribution Width 15.2 % (11.0-16.0); Sodium 139 mmol/L (135-145); Total Protein 6.8 g/dL (6.5-8.0)
[2022-11-26] MEDS: 0.9 % Sodium Chloride 1,000 ML 999 ML IVCONT ×3 (16:21→18:29)
[2022-11-26 16:24] LABS: Influenza A PCR NEGATIVE (Negative); Influenza B PCR NEGATIVE (Negative); Resp Syncy Virus RNA Qual PCR NEGATIVE (Negative); SARS COV2 PCR INHOUSE NEGATIVE (Negative)
[2022-11-26 16:26] LABS: B Type Natriuretic Peptide 60 pg/mL (<100)
[2022-11-26 16:30] LABS: Platelet Count 181 X10*3/uL (160-400); WBC ABN SCTR FOR CBC 1
[2022-11-26 16:31] LABS: White Blood Count 43.5 X10*3/uL (4.8-10.8)
[2022-11-26] MEDS: cefTRIAXone sodium 1 GM in 0.9 % Sodium Chloride 50 ML IV (16:32)
--- NOTE | 2022-11-26 16:38 | PC.NURSE ---
pt a&ox3, tachycardia on monitor, O2 high 80s on RA, low 90s-96% on 3L, 18G IV in left wrist, 1st L NS running, medicated per provider order. pt reporting 10/10 back pain, chronic per pt. resp at bedside, pt transitioned onto high flow O2.
[2022-11-26] MEDS: Albuterol Sulfate (0.083%) 2.5 MG/3 ML VIAL.NEB 10 MG INHALE (16:43)
[2022-11-26 16:48] LABS: Band Neutrophils Percent 8 % (3-5); Lymphocytes Absolute Manual 2.2 X10*3/uL (1.2-4.9); Lymphocytes Percent Manual 5 % (20-40); Monocytes Absolute Manual 2.6 X10*3/uL (0.1-1.2); Monocytes Percent Manual 6 % (2-11); Neutrophils Absolute Manual 38.7 X10*3/uL (2.0-8.3); Neutrophils Percent Manual 81 % (45-73); Platelet Estimate NORMAL (NORMAL); Platelet Morphology Comment NORMAL
[2022-11-26 16:49] LABS: RBC Morphology NORMAL; Toxic Vacuolation PRESENT; Troponin-I High Sensitivity < 3.5 ng/L (<3.5-35.0)
[2022-11-26 16:51] LABS: Lactic Acid 3.1 mmol/L (0.5-2.0)
[2022-11-26] MEDS: methylPREDNISolone Sod Succ 125 MG/2 ML VIAL IVPUSH (17:01)
[2022-11-26] MEDS: Azithromycin 500 MG in 0.9 % Sodium Chloride 250 ML 125 MG IV (17:09)
--- NOTE | 2022-11-26 17:37 | PHA.MEDREC ---
Addendum entered by Kvng Hawkins 11/26/22 17:46: Patient takes 32 mg Suboxone daily. Patient states they split the suboxone 12mg into 1/2 films and uses it throughout the day (0600,1000,1400,1800) and then takes the suboxone 8mg at bedtime for a total of 32mg. Original Note: Pharmacy Consult ? Medication Reconciliation Pharmacy has completed the medication reconciliation. Spoke to patient which provided a med list.
--- NOTE | 2022-11-26 17:39 | PC.NURSE ---
1st L of NS complete, 2nd L running.
--- NOTE | 2022-11-26 17:54 | PC.NURSE ---
Patient stood up with assistance patient unable to urinate will CTM
[2022-11-26 17:55] LABS: INTERNATIONAL NORM RATIO 1.3 (0.9-1.1); Prothrombin Time 15.1 SEC (10.0-13.1)
[2022-11-26 17:57] LABS: Partial Thromboplastin Time 27.2 SEC (26.0-36.4)
--- NOTE | 2022-11-26 18:09 | PM.IMHP ---
History of Present Illness Date of Service: 11/26/22 Attending physician on admission: Bianca Zuluaga Chief Complaint: SOB, cough x2 weeks Pt is a 42-year-old male with a PMH significant for?bipolar disorder, PTSD, anxiety, and agoraphobia who presents to the ED with SOB and productive cough x2 weeks. Patient's symptoms began a little over two weeks ago as an URI with head cold and stuffiness that progressed into the chest with a cough occasionally productive of yellowish sputum. Last week pt noted a sharp increase in SOB with exertion and at rest, and developed pleuritic chest pain with inspiration, particularly on his left side. Patient states that he has not been eating or drinking much the past few days due to not feeling well. Denies fever, chills, nausea, vomiting. No palpitations. Patient denies abdominal pain. In the ED patient was tachycardic, tachypneic, and hypotensive. Labs were significant for leukocytosis of 43.5 with a left shift, H&H of 12.6/39.6, creatinine of 2.80 (baseline unknown), lactic acid of 3.1. VBG with pH of 7.51 CXR showed left upper lobe consolidation/infiltrate. CT?of chest pending. EKG demonstrated sinus tachycardia with no evidence of ST elevations or depressions. Pt was treated with severe sepsis bundle with IVF, azithromycin, and ceftriaxone. Pt will be admitted to the hospital to telemetry for treatment of acute hypoxic respiratory failure in setting of community-acquired pneumonia. Review of Systems Review of Systems: Productive cough x2 weeks Shortness of breath x1 week Pleuritic chest pain with inspiration x1 week Fatigue Denies palpitations No fever, chills, nausea, vomiting, abdominal pain Yes all other systems are reviewed and are negative [facility] Medical History (Updated 11/27/22 @ 11:03 by Arnaud Sanabria MD) Anxiety Bipolar 1 disorder Cavitary pneumonia PTSD (post-traumatic stress disorder) Substance use disorder Social History Household Members: Spouse and None Housing: House Unable to assess alcohol history related to: Unknown Alcohol intake: never Patient Tobacco Use Status: Former Tobacco user Smoked in Last 30 Days: Yes Patient Interested in Nicotine Replacement: No Use of substances other than those prescribed or required for medical reasons: Yes Substance Use Type: Other Currently Displaying Signs/Symptoms of Drug Intoxication Withdrawal: No Any prior treatment program specific to substance use: No Have you been hit, kicked, punched, or otherwise hurt by someone within the past year? If so, by whom?: No Do you feel safe in your current relationship?: Yes Is there a partner from a previous relationship who is making you feel unsafe now?: No Are you made to feel afraid or neglected: No Advance Directives: No Nutrition Risks: No Nutritional Risk service: No Current occupational status: disabled Meds Allergies Allergy/AdvReac Type Severity Reaction Status Date / Time quetiapine [From Seroquel] Allergy Chest Pain Verified 11/26/22 17:13 Home Medications Medication Instructions Recorded Confirmed Last Taken Type bisacodyl 5 mg tablet,delayed 5 mg PO BEDTIME 11/26/22 11/26/22 11/25/22 History release buprenorphine 12 mg-naloxone 3 mg 0.5 film buccal TID@0600,1000,1400 11/26/22 11/26/22 11/26/22 History sublingual film (Suboxone) buprenorphine 12 mg-naloxone 3 mg 0.5 strip sublingual DAILY@1800 11/26/22 11/26/22 11/25/22 History sublingual film (Suboxone) buprenorphine 8 mg-naloxone 2 mg 1 film buccal BEDTIME 11/26/22 11/26/22 11/25/22 History sublingual film (Suboxone) cetirizine 10 mg tablet 10 mg PO BEDTIME PRN Allergy 11/26/22 11/26/22 11/25/22 History Symptoms divalproex 500 mg tablet,delayed 4 tab PO BEDTIME 11/26/22 11/26/22 11/25/22 History release docusate sodium 100 mg capsule 100 mg PO BEDTIME 11/26/22 11/26/22 11/25/22 History ibuprofen 800 mg tablet 800 mg PO Q6H PRN Back Pain 11/26/22 11/26/22 11/25/22 History mirtazapine 45 mg tablet 1 tab PO BEDTIME 11/26/22 11/26/22 11/25/22 History olanzapine 5 mg tablet 2 tab PO BEDTIME 11/26/22 11/26/22 11/25/22 History prazosin 2 mg capsule 2 mg PO BEDTIME 11/26/22 11/26/2211/25/23 History Physical Exam Vital Signs and Narrative: Vital Signs: Last Vital Signs Temp 98.0 F 11/26/22 16:27 Pulse 117 H 11/26/22 16:44 Resp 17 11/26/22 16:44 BP 99/69 11/26/22 16:27 Pulse Ox 96 11/26/22 16:27 O2 Del Method 11/26/22 16:27 O2 Flow Rate 3 11/26/22 16:27 BMI result Body Mass Index 32.3 Constitutional: Alert, in mild respiratory distress. Mental Status: Oriented to person, place and time. Eyes: Pupils are equal, round, and reactive to light. Ear, Nose, and Throat: Oropharynx clear, mucous membranes moist. Ears and nose without deformities. Trachea midline. Respiratory: Diffuse rhonchi bilaterally, especially in middle left lung field. Cardiovascular: S1, S2, tachycardic. No murmurs, rubs, or gallops. Gastrointestinal: Abdomen soft, non-tender, non-distended. Normal bowel sounds. Neurologic: Cranial nerves II-XII are grossly intact. No focal neurological deficits. Moves all extremities spontaneously. Skin: No rashes or lesions noted. Musculoskeletal: No cyanosis or clubbing. Extremities: No edema. Psychiatric: Normal mood and affect. Results Labs 11/26/22 15:59 11/26/22 15:59 Labs: Laboratory Results - last 24 hr 11/26/22 11/26/22 11/26/22 15:41 15:59 15:59 MCV 88.6 MCH 28.2 MCHC 31.8 RDW 15.2 Plt Count 181 MPV 10.7 Immature Gran % (Auto) Cancelled Neut % (Auto) Cancelled Lymph % (Auto) Cancelled [place] % (Auto) Cancelled Eos % (Auto) Cancelled Baso % (Auto) Cancelled Lymph # (Auto) Cancelled [place] # (Auto) Cancelled Eos # (Auto) Cancelled Baso # (Auto) Cancelled Abs Immat Gran (auto) Cancelled Absolute Neuts (auto) Cancelled Absolute Nucleated RBC 0.020 H Nucleated RBC % (auto) 0.0 Neutrophils % (Manual) 81 H Band Neutrophils % 8 H Lymphocytes % (Manual) 5 L Monocytes % (Manual) 6 Abs Neuts (Manual) 38.7 H Lymphocytes # (Manual) 2.2 Monocytes # (Manual) 2.6 H Toxic Vacuolation PRESENT Platelet Estimate NORMAL Plt Morphology Comment NORMAL RBC Morphology NORMAL PT INR APTT D-Dimer High Sensitivty VBG pH VBG pCO2 VBG pO2 VBG HCO3 VBG O2 Saturation VBG Base Excess Anion Gap 19 Estim Creat Clear Calc 44.9 Estimated GFR 25 Random Glucose 145 H Lactic Acid Calcium 8.7 Magnesium 1.8 Total Bilirubin 0.8 AST 18 ALT 10 Alkaline Phosphatase 105 Troponin I High Sens B-Natriuretic Peptide Total Protein 6.8 Albumin 3.3 L Influenza Type A (PCR) NEGATIVE Influenza Type B (PCR) NEGATIVE RSV RNA Qual (PCR) NEGATIVE SARS-CoV-2 RNA (RT-PCR) NEGATIVE 11/26/22 11/26/22 11/26/22 15:59 15:59 15:59 MCV MCH MCHC RDW Plt Count MPV Immature Gran % (Auto) Neut % (Auto) Lymph % (Auto) [place] % (Auto) Eos % (Auto) Baso % (Auto) Lymph # (Auto) [place] # (Auto) Eos # (Auto) Baso # (Auto) Abs Immat Gran (auto) Absolute Neuts (auto) Absolute Nucleated RBC Nucleated RBC % (auto) Neutrophils % (Manual) Band Neutrophils % Lymphocytes % (Manual) Monocytes % (Manual) Abs Neuts (Manual) Lymphocytes # (Manual) Monocytes # (Manual) Toxic Vacuolation Platelet Estimate Plt Morphology Comment RBC Morphology PT INR APTT D-Dimer High Sensitivty VBG pH VBG pCO2 VBG pO2 VBG HCO3 VBG O2 Saturation VBG Base Excess Anion Gap Estim Creat Clear Calc Estimated GFR Random Glucose Lactic Acid Calcium Magnesium Total Bilirubin AST ALT Alkaline Phosphatase Troponin I High Sens < 3.5 B-Natriuretic Peptide 60 Total Protein Albumin Influenza Type A (PCR) Influenza Type B (PCR) RSV RNA Qual (PCR) SARS-CoV-2 RNA (RT-PCR) 11/26/22 11/26/22 11/26/22 16:02 16:13 17:36 MCV MCH MCHC RDW Plt Count MPV Immature Gran % (Auto) Neut % (Auto) Lymph % (Auto) [place] % (Auto) Eos % (Auto) Baso % (Auto) Lymph # (Auto) [place] # (Auto) Eos # (Auto) Baso # (Auto) Abs Immat Gran (auto) Absolute Neuts (auto) Absolute Nucleated RBC Nucleated RBC % (auto) Neutrophils % (Manual) Band Neutrophils % Lymphocytes % (Manual) Monocytes % (Manual) Abs Neuts (Manual) Lymphocytes # (Manual) Monocytes # (Manual) Toxic Vacuolation Platelet Estimate Plt Morphology Comment RBC Morphology PT Cancelled INR Cancelled APTT Cancelled D-Dimer High Sensitivty VBG pH 7.51 H VBG pCO2 31 VBG pO2 91 VBG HCO3 24 VBG O2 Saturation 98.0 VBG Base Excess 2.7 Anion Gap Estim Creat Clear Calc Estimated GFR Random Glucose Lactic Acid 3.1 H* Calcium Magnesium Total Bilirubin AST ALT Alkaline Phosphatase Troponin I High Sens B-Natriuretic Peptide Total Protein Albumin Influenza Type A (PCR) Influenza Type B (PCR) RSV RNA Qual (PCR) SARS-CoV-2 RNA (RT-PCR) 11/26/22 17:36 MCV MCH MCHC RDW Plt Count MPV Immature Gran % (Auto) Neut % (Auto) Lymph % (Auto) [place] % (Auto) Eos % (Auto) Baso % (Auto) Lymph # (Auto) [place] # (Auto) Eos # (Auto) Baso # (Auto) Abs Immat Gran (auto) Absolute Neuts (auto) Absolute Nucleated RBC Nucleated RBC % (auto) Neutrophils % (Manual) Band Neutrophils % Lymphocytes % (Manual) Monocytes % (Manual) Abs Neuts (Manual) Lymphocytes # (Manual) Monocytes # (Manual) Toxic Vacuolation Platelet Estimate Plt Morphology Comment RBC Morphology PT 15.1 H INR 1.3 H APTT 27.2 D-Dimer High Sensitivty VBG pH VBG pCO2 VBG pO2 VBG HCO3 VBG O2 Saturation VBG Base Excess Anion Gap Estim Creat Clear Calc Estimated GFR Random Glucose Lactic Acid Calcium Magnesium Total Bilirubin AST ALT Alkaline Phosphatase Troponin I High Sens B-Natriuretic Peptide Total Protein Albumin Influenza Type A (PCR) Influenza Type B (PCR) RSV RNA Qual (PCR) SARS-CoV-2 RNA (RT-PCR) Imaging Radiologist's Impressions: Impressions Chest X-Ray 11/26/22 15:05 IMPRESSION: Left upper lobe consolidation/infiltrate. Assessment and Plan (1) Severe sepsis: Status: Acute (2) Sepsis with acute hypoxic respiratory failure: Status: Acute Plan Pt is a 42-year-old male with a PMH significant for?bipolar disorder, PTSD, anxiety, and agoraphobia who presents to the ED with SOB and productive cough x2 weeks. Patient will be admitted to telemetry for treatment of acute hypoxic respiratory failure in setting of community-acquired pneumonia with IV antibiotics. Acute hypoxic respiratory failure in the setting of community-acquired pneumonia CXR showed left upper lobe consolidation/infiltrate Ceftriaxone 1 g qd, day 1 Azithromycin 500 mg qd, day 1 Solu-Medrol 60mg q8 Continue high-flow, titrate to O2 >90, wean as tolerated CT of chest Procalcitonin MRSA nasal swab Strep pneumonia and Legionella antigen urine test Follow labs Monitor respiratory status Severe sepsis WBC 43.5, hypotensive at 94/54, tachypnea, tachycardia, creatinine 2.80, lactic acid 3.1 Patient received sepsis bundle with 30 ml/kg IVF for severe sepsis and hypotension IV ABX: Ceftriaxone and azithromycin Trend labs Mental health Continue home meds Opioid use disorder Continue Suboxone Full Code Attending:?Dr. Zuluaga DVT Prophylaxis: Lovenox Pt will require a hospitalization of at least two nights for treatment of? acute hypoxic respiratory failure in setting of community-acquired pneumonia. Time Spent With Patient Time: Total time managing care of this patient today ____ minutes. Quality Stroke Does the patient have a stroke diagnosis?: No VTE Prior VTE?: No VTE Risk Level:: Medical - moderate - high VTE Device Contraindication: Treatment Not Indicated VTE Drug Contraindication: N/A - Med Ordered
[2022-11-26 18:16] LABS: Reflex Lactate? Lactic Acid Added
--- NOTE | 2022-11-26 18:26 | PM.EVENT ---
Event Note Date of Service: 11/26/22 Event Note: Addendum to history and physical by the advanced practice provider, ANURAG Farley I interviewed and examined the patient. I discussed their presentation and management with the REJI. I reviewed the history and physical and agree with the documentation, with the following additions and corrections: 42yo M with OUD on Suboxone, abstinent of heroin x 2yr, presenting after 2 weeks of coughing and worsening dyspnea. Found to have severe sepsis with leukocytosis/bandemia, tachycardia, and tachypnea and SIMBA [BUN/Cr 29/2.8], lactate 3.1. CXR with SEBASTIAN PNA. On exam, has inspiratory crackles on L and is currently on HFNC saturating 97% on 40% fiO2 @ 30 Lpm. Got 3L IV fluids, ceftriaxone, and azithromycin. Plan admit to [facility] for acute respiratory failure due to PNA with severe sepsis. Will give ceftriaxone + azithromycin, trend PCT, follow BCx, check HIV, check Utox, check MRSA swab, check urinary antigens for pneumococcus and Legionella. Given degree of hypoxia/ALI, will check CT of the chest. Time Spent With Patient Time: Total time managing care of this patient today ____ minutes.
[2022-11-26 18:48] LABS: Procalcitonin 2.46 ng/mL
[2022-11-26] MEDS: Buprenorphine/Naloxone 8/2 mg FILM 1 FILM BUCCAL (20:14)
[2022-11-26] MEDS: Ibuprofen 800 MG TABLET PO (20:14)
[2022-11-26] MEDS: Mirtazapine 15 MG TABLET 45 MG PO (20:14)
[2022-11-26] MEDS: bisacodyL 5 MG TABLET.DR PO (20:14)
[2022-11-26] MEDS: Prazosin HCL 1 MG CAPSULE 2 MG PO (20:15)
[2022-11-26] MEDS: OLANZapine 10 MG TABLET PO (20:15)
[2022-11-26] MEDS: Divalproex Sodium 500 MG TABLET.DR 2000 MG PO (20:15)
[2022-11-26] MEDS: Enoxaparin Sodium 40 MG/0.4 ML SYRINGE SUBCUT (20:15)
[2022-11-26 20:38] LABS: Reflex Lactate? 2 Y
[2022-11-26 20:49] LABS: Appearance Urine Cloudy; Color Urine Dark Yellow; Glucose Urine UA Negative (Negative); Leukocyte Esterase Urine Trace (Negative); Nitrite Urine Negative (Negative); Specific Gravity - Urine 1.025 (1.005-1.025); UMIC TRIGGER UACC YES; Urine Blood Negative (Negative); Urine Ketones Trace mg/dL (Negative); Urine Protein 30 (1+) mg/dL (Neg-Trace)
[2022-11-26 21:04] LABS: Bacteria Urine None Seen (None Seen); Hyaline Casts Urine >20 /LPF (0-2); WBC Urine 0-5 /HPF (0-5)
--- NOTE | 2022-11-26 21:20 | PC.NURSE ---
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 This RN called our pharmacy to confirm with recent med rec but pharmacy unable to verify. Pharmacy will call tomorrow to confirm med.
[2022-11-26 21:21] LABS: ~Lactic Acid-LAB USE ONLY 3.4 mmol/L (0.5-2.0)
--- NOTE | 2022-11-26 21:45 | PC.NURSE ---
RN-RN report called into [facility].
[2022-11-26 22:33] LABS: Amphetamine Screen Urine Not Detected (Not Detect); Barbiturates, Urine Not Detected (Not Detect); Benzodiazepines Screen Urine Not Detected (Not Detect); Cannabinoid Screen Urine Not Detected (Not Detect); Cocaine Screen Urine Not Detected (Not Detect); Fentanyl, urine Not Detected (Not Detect); Opiate Screen Urine Not Detected (Not Detect); Phencyclidine Screen Urine POSITIVE (Not Detect)
--- NOTE | 2022-11-26 22:36 | PC.NURSE ---
chemistry contacted re outstanding utox screen, results should post soon.
[2022-11-26] MEDS: oxyCODONE HCl Immed Release 5 MG TABLET PO (23:23)
[2022-11-27] VITALS (11 sets, daily range): BP systolic 123–166; BP diastolic 65–81; PULSE 78–137; RESP 14–26; TEMP 36.4–37.5; O2SAT 86–100; BMI 32.3
[2022-11-27] MEDS: methylPREDNISolone Sod Succ 125 MG/2 ML VIAL 60 MG IVPUSH (00:05)
[2022-11-27] MEDS: 0.9 % Sodium Chloride Flush 3 ML SYRINGE IVFLUSH ×4 (00:09→21:50)
--- NOTE | 2022-11-27 05:45 | PM.EVENT ---
Event Note Date of Service: 11/27/22 Event Note: Patient's chest CT shows cavitary lesion. He reports that he was tested twice after leaving shelter for TB and was negative most recently several months prior. He has a cough. Patient will be placed in a negative pressure room, a sputum culture will be obtained. Will start him on vancomycin. Infectious disease consulted Time Spent With Patient Time: Total time managing care of this patient today ____ minutes.
[2022-11-27] MEDS: guaiFENesin DM 100/10/5 ML 5 ML SYRUP PO ×4 (06:11→22:07)
[2022-11-27] MEDS: Buprenorphine/Naloxone 2/0.5mg FILM 1 FILM SUBLINGUAL ×3 (06:12→17:57)
[2022-11-27] MEDS: Buprenorphine/Naloxone 4/1 mg FILM 1 FILM SUBLINGUAL ×3 (06:12→17:57)
[2022-11-27 06:20] LABS: Hematocrit 34.8 % (42.0-52.0); Hemoglobin 11.1 g/dl (14.0-18.0); Mean Corpuscular HGB Conc 31.9 g/dl (31.0-36.0); Mean Corpuscular Hemoglobin 28.1 pg (27.0-33.0); Mean Corpuscular Volume 88.1 fL (80.0-98.0); Mean Platelet Volume 10.2 fL (9.4-12.4); NRBC Pct Auto 0.1 /100WBC (0.0-0.2); Platelet Count 203 X10*3/uL (160-400); Red Blood Count 3.95 X10*6/uL (4.60-5.80); Red Cell Distribution Width 15.5 % (11.0-16.0)
[2022-11-27 06:22] LABS: White Blood Count 45.2 X10*3/uL (4.8-10.8)
[2022-11-27 07:01] LABS: Anion Gap 18 (12-20); Blood Urea Nitrogen 38 mg/dL (9-16); Carbon Dioxide 22 mmol/L (22-29); Chloride 101 mmol/L (96-108); Creatinine Clr Calc Pharmacy 58.7; Estimated Glomerular Filt Rate 34; Glucose Random 217 mg/dL (60-115); Sodium 137 mmol/L (135-145)
--- NOTE | 2022-11-27 07:30 | PC.NURSE ---
at 4 am pt is coughing , HR in 120-130 with bursts to 140 pt uncomfortable and o2 is in 83-86 percent. md notified pt already on high flow o2 respiratory moved o2 to 80 percent and 50 liters. md came to exam pt. pt is moved to [facility] negative pressure room. pt also void only 250 concentrated urine md notified. now oxygen is 94-96% pt already rcd his suboxone and robutussin for cough per md to give early resting more comfortable
--- NOTE | 2022-11-27 07:39 | PHA.PROG ---
Admission Date/Time: November 26, 2022 18:35 Indication: Respiratory Weight in k kg Adjusted body weight in Kg: Grawn body weight in Kg: Obesity Dosing Indication % IBW: 39% Serum Creatinine - Last 168 Hours 11/26/22 11/27/22 15:59 05:52 Creatinine 2.80 H 2.14 H Estimated CrCl and GFR - Last 168 Hours 11/26/22 11/27/22 15:59 05:52 Estim Creat Clear Calc 44.9 58.7 Estimated GFR 25 34 Vancomycin Loading Dose: 2000mg X 1 Current Vancomycin Dosing Regimen: 500mg Q12H Vancomycin Monitoring using AUC goal of 400 - 600 range with trough as surrogate marker: 445mg/L Date and Time for next Vancomycin Level to be drawn: 11/28/22 @0700 Pharmacist Comments on Vancomycin Plan: Patient's renal function improving, using obesity model Vancomycin dosing will take advantage of [employer] as a clinical decision support tool that uses Bayesian modeling to calculate individual patient's pharmacokinetic parameters and forecast the patient's drug concentration time course with the target goal AUC 24 range of 400 - 600 mg/L/hr.
[2022-11-27 09:22] LABS: Appearance Urine Cloudy; Color Urine Dark Yellow; Glucose Urine UA Negative (Negative); Leukocyte Esterase Urine Trace (Negative); Nitrite Urine Negative (Negative); UMIC TRIGGER UACC YES; Urine Blood Negative (Negative); Urine Ketones Trace mg/dL (Negative); Urine Protein 30 (1+) mg/dL (Neg-Trace)
[2022-11-27 09:39] LABS: Bacteria Urine None Seen (None Seen); Granular Casts Urine Present; RBC Urine 0-2 /HPF (0-2); WBC Urine 0-5 /HPF (0-5)
[2022-11-27] MEDS: Piperacillin Sodium/Tazobactam 3.375 GM in 0.9 % Sodium Chloride 50 ML IV ×3 (10:10→21:49)
[2022-11-27] MEDS: Lactated Ringers 1,000 ML 125 ML IVCONT ×2 (10:11→22:07)
[2022-11-27 10:24] LABS: MRSA Nasal PCR POSITIVE (Negative); SA Nasal PCR POSITIVE (Negative)
--- NOTE | 2022-11-27 10:24 | MHC.CM.PN ---
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 Home/self care is the goal and CM has initiated and will follow for dc planning. Patient is on a waiting list for a PCP and he is Covid jessica'd X3.
--- NOTE | 2022-11-27 10:55 | PM.CNPUL ---
History of Present Illness History of Present Illness Consult date: 11/27/22 Chief complaint: SOB, Cough, fatigue x2 weeks Narrative: This is an inpt pulmonary consultation. The Pt is a 42-year-old male with a PMH significant for?bipolar disorder, PTSD, anxiety, and agoraphobia who presents to the ED with SOB and productive cough x2 weeks. Patient's symptoms began a little over two weeks ago as an URI with head cold and stuffiness that progressed into the chest with a cough occasionally productive of yellowish sputum. Last week pt noted a sharp increase in SOB with exertion and at rest, and developed pleuritic chest pain with inspiration, particularly on his left side.? Patient states that he has not been eating or drinking much the past few days due to not feeling well. Denies fever, chills, nausea, vomiting.? No palpitations.? Patient denies abdominal pain. In the ED patient was tachycardic, tachypneic, and hypotensive. Labs were significant for leukocytosis of 43.5 with a left shift, CXR showed left upper lobe consolidation/infiltrate. CT?of chest was personally reviewed by me demonstrating a larger area of airspace disease with cavity on the SEBASTIAN along with perpheral based cavitary lesions primarily on the right, but also on the left. As far a TB risk, he was in long term recently, but tested negative for TB a couple of times. Review of Systems Review of Systems: +Productive cough x2 weeks +Shortness of breath x1 week +Pleuritic chest pain with inspiration +Fatigue -Denies palpitations -no rash -no joint pains -No fever, chills, nausea, vomiting, abdominal pain Yes all other systems are reviewed and are negative [facility] Past Medical History Medical History (Updated 11/27/22 @ 11:03 by Arnaud Sanabria MD) Anxiety Bipolar 1 disorder Cavitary pneumonia PTSD (post-traumatic stress disorder) Substance use disorder Social History Social History Household Members: Spouse and None Housing: House Unable to assess alcohol history related to: Unknown Alcohol intake: never Patient Tobacco Use Status: Former Tobacco user Smoked in Last 30 Days: Yes Patient Interested in Nicotine Replacement: No Use of substances other than those prescribed or required for medical reasons: Yes Substance Use Type: Other Currently Displaying Signs/Symptoms of Drug Intoxication Withdrawal: No Any prior treatment program specific to substance use: No Have you been hit, kicked, punched, or otherwise hurt by someone within the past year? If so, by whom?: No Do you feel safe in your current relationship?: Yes Is there a partner from a previous relationship who is making you feel unsafe now?: No Are you made to feel afraid or neglected: No Advance Directives: No Nutrition Risks: No Nutritional Risk service: No Current occupational status: disabled Meds Allergies Allergy/AdvReac Type Severity Reaction Status Date / Time quetiapine [From Seroquel] Allergy Chest Pain Verified 11/26/22 17:13 Active Medications: Current Medications Acetaminophen (Acetaminophen 325 Mg Tablet) 650 mg PO Q6H PRN PRN Reason: Pain, Mild (Pain Scale 1-3) Bisacodyl (Bisacodyl 5 Mg Tablet.) 5 mg PO BEDTIME [facility] Last Admin: 11/26/22 20:14 Dose: 5 mg Buprenorphine/Naloxone (Buprenorphine/Naloxone 8/2 Mg Film) 1 film BUCCAL BEDTIME [facility] Last Admin: 11/26/22 20:14 Dose: 1 film Buprenorphine/Naloxone (Buprenorphine/Naloxone 4/1 Mg Film) 1 film SUBLINGUAL 0600,1000,1400,1800 [facility] Last Admin: 11/27/22 10:09 Dose: 1 film Buprenorphine/Naloxone (Buprenorphine/Naloxone 2/0.5mg Film) 1 film SUBLINGUAL 0600,1000,1400,1800 [facility] Last Admin: 11/27/22 10:09 Dose: 1 film Divalproex Sodium (Divalproex Sodium 500 Mg Tablet.) 2,000 mg PO BEDTIME [facility] Last Admin: 11/26/22 20:15 Dose: 2,000 mg Docusate Sodium (Docusate Sodium 100 Mg Capsule) 100 mg PO DAILY PRN PRN Reason: Constipation Enoxaparin Sodium (Enoxaparin Sodium 40 Mg/0.4 Ml Syringe) 40 mg SUBCUT Q24H [facility] Last Admin: 11/26/22 20:15 Dose: 40 mg Guaifenesin/Dextromethorphan (Guaifenesin Dm 100/10/5 Ml 5 Ml Syrup) 5 ml PO Q4H PRN PRN Reason: Cough Last Admin: 11/27/22 06:11 Dose: 5 ml Vancomycin HCl 500 mg/ Sodium (Chloride) 110 mls @ 110 mls/hr IV Q12H MAHENDRA Piperacillin Sod/Tazobactam (Sod 3.375 gm/ Sodium Chloride) 50 mls @ 100 mls/hr IV Q6H MAHENDRA Last Admin: 11/27/22 10:10 Dose: 100 mls/hr Lactated Ringer's (Lr) 1,000 mls @ 125 mls/hr IVCONT .Q8H MAHENDRA Last Infusion: 11/27/22 10:21 Dose: 0 mls/hr Azithromycin 500 mg/ Sodium (Chloride) 250 mls @ 125 mls/hr IV Q24H MAHENDRA Ibuprofen (Ibuprofen 800 Mg Tablet) 800 mg PO Q6H PRN PRN Reason: Back Pain Last Admin: 11/26/22 20:14 Dose: 800 mg Lidocaine (Lidocaine 4 % Patch Adh..Patch) 1 patch TRANSDERMA DAILY MAHENDRA; Protocol Loratadine (Loratadine 10 Mg Tablet) 10 mg PO BEDTIME PRN PRN Reason: Allergy Symptoms Mirtazapine (Mirtazapine 15 Mg Tablet) 45 mg PO BEDTIME MAHENDRA Last Admin: 11/26/22 20:14 Dose: 45 mg Morphine Sulfate (Morphine Sulfate 4 Mg/Ml Cartridge) 4 mg IVPUSH Q4H PRN; Protocol PRN Reason: severe pain Olanzapine (Olanzapine 10 Mg Tablet) 10 mg PO BEDTIME MAHENDRA Last Admin: 11/26/22 20:15 Dose: 10 mg Oxycodone HCl (Oxycodone Hcl Immed Release 5 Mg Tablet) 7.5 mg PO Q4H PRN PRN Reason: Pain, Severe (Pain Scale 7-10) Pharmacy Consult (Consult Rx Vancomycin Dosing) 1 each MISCELLANE DAILY PRN PRN Reason: Consult order Prazosin HCl (Prazosin Hcl 1 Mg Capsule) 2 mg PO BEDTIME MAHENDRA; Protocol Last Admin: 11/26/22 20:15 Dose: 2 mg Sodium Chloride (0.9 % Sodium Chloride Flush 3 Ml Syringe) 3 ml IVFLUSH QSHIFT [facility] Last Admin: 11/27/22 10:26 Dose: 3 ml Sodium Chloride (Sodium Chloride 3 % Inhalation 15 Ml Vial.Neb) 15 ml INHALE DAILY [facility] Stop: 11/29/22 09:01 Home Medications Medication Instructions Recorded Confirmed Last Taken Type bisacodyl 5 mg tablet,delayed 5 mg PO BEDTIME 0111/26/22 11/25/22 History release buprenorphine 12 mg-naloxone 3 mg 0.5 film buccal TID@0600,1000,1400 11/26/22 11/26/22 11/26/22 History sublingual film (Suboxone) buprenorphine 12 mg-naloxone 3 mg 0.5 strip sublingual DAILY@1800 11/26/22 11/26/22 11/25/22 History sublingual film (Suboxone) buprenorphine 8 mg-naloxone 2 mg 1 film buccal BEDTIME 11/26/22 11/26/22 11/25/22 History sublingual film (Suboxone) cetirizine 10 mg tablet 10 mg PO BEDTIME PRN Allergy 11/26/22 11/26/22 11/25/22 History Symptoms divalproex 500 mg tablet,delayed 4 tab PO BEDTIME 11/26/22 11/26/22 11/25/22 History release docusate sodium 100 mg capsule 100 mg PO BEDTIME 11/26/22 11/26/22 11/25/22 History ibuprofen 800 mg tablet 800 mg PO Q6H PRN Back Pain 11/26/22 11/26/22 11/25/22 History mirtazapine 45 mg tablet 1 tab PO BEDTIME 11/26/22 11/26/22 11/25/22 History olanzapine 5 mg tablet 2 tab PO BEDTIME 11/26/22 11/26/22 11/25/22 History prazosin 2 mg capsule 2 mg PO BEDTIME 11/26/22 11/26/22 11/25/22 History Physical Exam Vital Signs: Vital Signs: Last Vital Signs Temp 98.7 F 11/27/22 08:00 Pulse 127 H 11/27/22 08:00 Resp 14 11/27/22 08:00 BP 139/80 11/27/22 08:00 Pulse Ox 92 11/27/22 08:00 O2 Del Method 11/27/22 08:00 O2 Flow Rate 45 11/27/22 08:00 FiO2 75 11/27/22 08:00 BMI result Body Mass Index 32.3 Const: General: comfortable Orientation/consciousness: oriented to person, oriented to place, oriented to time and patient oriented x3 HEENT: Head: Yes atraumatic Eyes: General: appearance normal, both eyes and all related structures Neck: Neck: Yes supple Chest: Chest palpation & inspection: normal inspection of the chest Resp: Effort & Inspection: normal respiratory effort and Actively coughing Quality: actively coughing Auscultation: diminished lung sounds Cardio: Rate: regular rate Rhythm: regular rhythm Heart sounds: S1 normal heart sound present and S2 normal heart sound present GI: Auscultation: normal bowel sounds Skin: General skin exam: no rashes or lesions noted Neuro: General: oriented to person, oriented to place, oriented to time and patient oriented x3 Extrem: General: Yes no clubbing, cyanosis or edema Results Laboratory Findings 11/27/22 05:52 11/27/22 05:52 ABG, PT/INR, D-dimer: PT/INR, D-dimer PT 15.1 SEC (10.0-13.1) H 11/26/22 17:36 PT Cancelled 11/26/22 17:36 INR 1.3 (0.9-1.1) H 11/26/22 17:36 INR Cancelled 11/26/22 17:36 Abnormal lab findings: Abnormal Labs 11/26/22 11/26/22 11/26/22 15:59 15:59 16:02 WBC 43.5 H* RBC 4.47 L Hgb 12.6 L Hct 39.6 L Absolute Nucleated RBC 0.020 H Neutrophils % (Manual) 81 H Band Neutrophils % 8 H Lymphocytes % (Manual) 5 L Abs Neuts (Manual) 38.7 H Monocytes # (Manual) 2.6 H PT INR VBG pH 7.51 H BUN 29 H Creatinine 2.80 H Random Glucose 145 H Lactic Acid Lactic Acid F/U @ 2Hr Lactic Acid F/U @ 4Hr Calcium Albumin 3.3 L Urine Protein Ur Leukocyte Esterase Urine RBC Ur Phencyclidine Scrn 11/26/22 11/26/22 11/26/22 16:13 17:36 18:34 WBC RBC Hgb Hct Absolute Nucleated RBC Neutrophils % (Manual) Band Neutrophils % Lymphocytes % (Manual) Abs Neuts (Manual) Monocytes # (Manual) PT 15.1 H INR 1.3 H VBG pH BUN Creatinine Random Glucose Lactic Acid 3.1 H* Lactic Acid F/U @ 2Hr 4.0 H* Lactic Acid F/U @ 4Hr Calcium Albumin Urine Protein Ur Leukocyte Esterase Urine RBC Ur Phencyclidine Scrn 11/26/22 11/26/22 11/26/22 20:30 20:30 21:03 WBC RBC Hgb Hct Absolute Nucleated RBC Neutrophils % (Manual) Band Neutrophils % Lymphocytes % (Manual) Abs Neuts (Manual) Monocytes # (Manual) PT INR VBG pH BUN Creatinine Random Glucose Lactic Acid Lactic Acid F/U @ 2Hr Lactic Acid F/U @ 4Hr 3.4 H* Calcium Albumin Urine Protein 30 (1+) H Ur Leukocyte Esterase Trace H Urine RBC 3-5 H Ur Phencyclidine Scrn POSITIVE H 11/27/22 11/27/22 11/27/22 05:52 05:52 08:50 WBC 45.2 H* RBC 3.95 L Hgb 11.1 L Hct 34.8 L Absolute Nucleated RBC 0.040 H Neutrophils % (Manual) Band Neutrophils % Lymphocytes % (Manual) Abs Neuts (Manual) Monocytes # (Manual) PT INR VBG pH BUN 38 H Creatinine 2.14 H Random Glucose 217 H Lactic Acid Lactic Acid F/U @ 2Hr Lactic Acid F/U @ 4Hr Calcium 8.0 L D Albumin Urine Protein 30 (1+) H Ur Leukocyte Esterase Trace H Urine RBC Ur Phencyclidine Scrn Assessment and Plan (1) Sepsis with acute hypoxic respiratory failure: Status: Acute (2) Chest pain: Status: Acute (3) Cavitary pneumonia: Status: Acute Plan Some components of the cavitary pneumonia are suggestive of staph with the cavitary nature. THis could be the result of a post viral bacterial process. But also the other perpheral lesions are more suggestive of hematagenous spread. Unlikely TB with so evidence of think walled cavities and should only have upper lung disease with reactivation. REC:' ECHO to r/o vegetations Add vancomycin Should likely be titrated to nasal cannula to keep pox >90% Awaiting bloodwork AFB x 3 to r/o MTB at this time Time Spent With Patient Time: Total time managing care of this patient today ____ minutes. Procedures Date of Service Date of Service: 11/27/22
--- NOTE | 2022-11-27 11:09 | P.PNIM_ITS ---
Subjective Subjective Date of Service: 11/27/22 Interval History: CT of the chest showed multiple cavitary lesions. Placed on airborne precautions. Pt states he was incarcerated for 8 months and tested negative for TB. Prior to 2 weeks ago, no weight loss, night sweats [other than chronic sweating], cough, or hemoptysis. C/o chest wall pain with coughing. No fever. Currently on HFNC, 45 Lpm, 75% fiO2 Review of Systems Review of Systems: Yes all other systems are reviewed and are negative Physical Exam Vital Signs: Vital Signs: Last Vital Signs Temp 98.7 F 11/27/22 08:00 Pulse 127 H 11/27/22 08:00 Resp 14 11/27/22 08:00 BP 139/80 11/27/22 08:00 Pulse Ox 92 11/27/22 08:00 O2 Del Method 11/27/22 08:00 O2 Flow Rate 45 11/27/22 08:00 FiO2 75 11/27/22 08:00 BMI result Body Mass Index 32.3 Gen: in no acute distress HEENT: sclera anicteric, moist mucus membranes, no thrush Neck: supple Lungs: diminished L upper whitehead Heart: regular, tachycardic, no murmurs Abd: soft, non-tender, non-distended Ext: no edema Skin: warm/well-perfused Neuro: alert and oriented x3, no focal findings Psych: appropriate affect Objective Data Active Medications Acetaminophen (Acetaminophen 325 Mg Tablet) 650 mg PO Q6H PRN PRN Reason: Pain, Mild (Pain Scale 1-3) Bisacodyl (Bisacodyl 5 Mg Tablet.) 5 mg PO BEDTIME [facility] Last Admin: 11/26/22 20:14 Dose: 5 mg Documented By: FLORIAN Buprenorphine/Naloxone (Buprenorphine/Naloxone 8/2 Mg Film) 1 film BUCCAL BEDTIME [facility] Last Admin: 11/26/22 20:14 Dose: 1 film Documented By: FLORIAN Buprenorphine/Naloxone (Buprenorphine/Naloxone 4/1 Mg Film) 1 film SUBLINGUAL 0600,1000,1400,1800 [facility] Last Admin: 11/27/22 10:09 Dose: 1 film Documented By: SHILPA Buprenorphine/Naloxone (Buprenorphine/Naloxone 2/0.5mg Film) 1 film SUBLINGUAL 0600,1000,1400,1800 [facility] Last Admin: 11/27/22 10:09 Dose: 1 film Documented By: SHILPA Divalproex Sodium (Divalproex Sodium 500 Mg Tablet.) 2,000 mg PO BEDTIME [facility] Last Admin: 11/26/22 20:15 Dose: 2,000 mg Documented By: FLORIAN Docusate Sodium (Docusate Sodium 100 Mg Capsule) 100 mg PO DAILY PRN PRN Reason: Constipation Enoxaparin Sodium (Enoxaparin Sodium 40 Mg/0.4 Ml Syringe) 40 mg SUBCUT Q24H [facility] Last Admin: 11/26/22 20:15 Dose: 40 mg Documented By: FLORIAN Guaifenesin/Dextromethorphan (Guaifenesin Dm 100/10/5 Ml 5 Ml Syrup) 5 ml PO Q4H PRN PRN Reason: Cough Last Admin: 11/27/22 06:11 Dose: 5 ml Documented By: ABHILASH Comments: per md to give now Vancomycin HCl 500 mg/ Sodium (Chloride) 110 mls @ 110 mls/hr IV Q12H [facility]EN[facility] Piperacillin Sod/Tazobactam (Sod 3.375 gm/ Sodium Chloride) 50 mls @ 100 mls/hr IV Q6H [facility] Last Admin: 11/27/22 10:10 Dose: 100 mls/hr Documented By: SHILPA Lactated Ringer's (Lr) 1,000 mls @ 125 mls/hr IVCONT .Q8H [facility] Last Infusion: 11/27/22 10:21 Dose: 0 mls/hr Documented By: SHILPA Azithromycin 500 mg/ Sodium (Chloride) 250 mls @ 125 mls/hr IV Q24H MAHENDRA Ibuprofen (Ibuprofen 800 Mg Tablet) 800 mg PO Q6H PRN PRN Reason: Back Pain Last Admin: 11/26/22 20:14 Dose: 800 mg Documented By: FLORIAN Lidocaine (Lidocaine 4 % Patch Adh..Patch) 1 patch TRANSDERMA DAILY [facility]; Protocol Loratadine (Loratadine 10 Mg Tablet) 10 mg PO BEDTIME PRN PRN Reason: Allergy Symptoms Mirtazapine (Mirtazapine 15 Mg Tablet) 45 mg PO BEDTIME [facility] Last Admin: 11/26/22 20:14 Dose: 45 mg Documented By: FLORIAN Morphine Sulfate (Morphine Sulfate 4 Mg/Ml Cartridge) 4 mg IVPUSH Q4H PRN; Protocol PRN Reason: severe pain Olanzapine (Olanzapine 10 Mg Tablet) 10 mg PO BEDTIME [facility] Last Admin: 11/26/22 20:15 Dose: 10 mg Documented By: FLORIAN Oxycodone HCl (Oxycodone Hcl Immed Release 5 Mg Tablet) 7.5 mg PO Q4H PRN PRN Reason: Pain, Severe (Pain Scale 7-10) Pharmacy Consult (Consult Rx Vancomycin Dosing) 1 each MISCELLANE DAILY PRN PRN Reason: Consult order Prazosin HCl (Prazosin Hcl 1 Mg Capsule) 2 mg PO BEDTIME [facility]A; Protocol Last Admin: 11/26/22 20:15 Dose: 2 mg Documented By: FLORIAN Sodium Chloride (0.9 % Sodium Chloride Flush 3 Ml Syringe) 3 ml IVFLUSH QSHIFT [facility] Last Admin: 11/27/22 10:26 Dose: 3 ml Documented By: TEMOORRZoila Sodium Chloride (Sodium Chloride 3 % Inhalation 15 Ml Vial.Neb) 15 ml INHALE DAILY [facility] Stop: 11/29/22 09:01 Labs 11/27/22 05:52 11/27/22 05:52 Labs: Laboratory Results - last 24 hr 11/26/22 11/26/22 11/26/22 15:41 15:59 15:59 MCV 88.6 MCH 28.2 MCHC 31.8 RDW 15.2 Plt Count 181 MPV 10.7 Immature Gran % (Auto) Cancelled Neut % (Auto) Cancelled Lymph % (Auto) Cancelled Scott % (Auto) Cancelled Eos % (Auto) Cancelled Baso % (Auto) Cancelled Lymph # (Auto) Cancelled Scott # (Auto) Cancelled Eos # (Auto) Cancelled Baso # (Auto) Cancelled Abs Immat Gran (auto) Cancelled Absolute Neuts (auto) Cancelled Absolute Nucleated RBC 0.020 H Nucleated RBC % (auto) 0.0 Neutrophils % (Manual) 81 H Band Neutrophils % 8 H Lymphocytes % (Manual) 5 L Monocytes % (Manual) 6 Abs Neuts (Manual) 38.7 H Lymphocytes # (Manual) 2.2 Monocytes # (Manual) 2.6 H Toxic Vacuolation PRESENT Platelet Estimate NORMAL Plt Morphology Comment NORMAL RBC Morphology NORMAL PT INR APTT D-Dimer High Sensitivty VBG pH VBG pCO2 VBG pO2 VBG HCO3 VBG O2 Saturation VBG Base Excess Anion Gap 19 Estim Creat Clear Calc 44.9 Estimated GFR 25 Random Glucose 145 H Lactic Acid Lactic Acid F/U @ 2Hr Lactic Acid F/U @ 4Hr Calcium 8.7 Magnesium 1.8 Total Bilirubin 0.8 AST 18 ALT 10 Alkaline Phosphatase 105 Troponin I High Sens B-Natriuretic Peptide Total Protein 6.8 Albumin 3.3 L Procalcitonin Urine Color Urine Appearance Urine pH Ur Specific [place] Urine Protein Urine Glucose (UA) Urine Ketones Urine Blood Urine Nitrite Ur Leukocyte Esterase Urine RBC Urine WBC Ur Squamous Epith Cells Urine Bacteria Hyaline Casts Granular Casts Nasal Screen MRSA (PCR) Nasal S. aureus Screen Nasal MRSA/S.aureus Interp Urine Opiates Screen Urine Fentanyl Screen Ur Barbiturates Screen Ur Phencyclidine Scrn Ur Amphetamines Screen U Benzodiazepines Scrn Urine Cocaine Screen U Marijuana (THC) Screen Influenza Type A (PCR) NEGATIVE Influenza Type B (PCR) NEGATIVE RSV RNA Qual (PCR) NEGATIVE SARS-CoV-2 RNA (RT-PCR) NEGATIVE 11/26/22 11/26/22 11/26/22 15:59 15:59 15:59 MCV MCH MCHC RDW Plt Count MPV Immature Gran % (Auto) Neut % (Auto) Lymph % (Auto) Scott % (Auto) Eos % (Auto) Baso % (Auto) Lymph # (Auto) Scott # (Auto) Eos # (Auto) Baso # (Auto) Abs Immat Gran (auto) Absolute Neuts (auto) Absolute Nucleated RBC Nucleated RBC % (auto) Neutrophils % (Manual) Band Neutrophils % Lymphocytes % (Manual) Monocytes % (Manual) Abs Neuts (Manual) Lymphocytes # (Manual) Monocytes # (Manual) Toxic Vacuolation Platelet Estimate Plt Morphology Comment RBC Morphology PT INR APTT D-Dimer High Sensitivty VBG pH VBG pCO2 VBG pO2 VBG HCO3 VBG O2 Saturation VBG Base Excess Anion Gap Estim Creat Clear Calc Estimated GFR Random Glucose Lactic Acid Lactic Acid F/U @ 2Hr Lactic Acid F/U @ 4Hr Calcium Magnesium Total Bilirubin AST ALT Alkaline Phosphatase Troponin I High Sens < 3.5 B-Natriuretic Peptide 60 Total Protein Albumin Procalcitonin Urine Color Urine Appearance Urine pH Ur Specific [place] Urine Protein Urine Glucose (UA) Urine Ketones Urine Blood Urine Nitrite Ur Leukocyte Esterase Urine RBC Urine WBC Ur Squamous Epith Cells Urine Bacteria Hyaline Casts Granular Casts Nasal Screen MRSA (PCR) Nasal S. aureus Screen Nasal MRSA/S.aureus Interp Urine Opiates Screen Urine Fentanyl Screen Ur Barbiturates Screen Ur Phencyclidine Scrn Ur Amphetamines Screen U Benzodiazepines Scrn Urine Cocaine Screen U Marijuana (THC) Screen Influenza Type A (PCR) Influenza Type B (PCR) RSV RNA Qual (PCR) SARS-CoV-2 RNA (RT-PCR) 11/26/22 11/26/22 11/26/22 15:59 16:02 16:13 MCV MCH MCHC RDW Plt Count MPV Immature Gran % (Auto) Neut % (Auto) Lymph % (Auto) Scott % (Auto) Eos % (Auto) Baso % (Auto) Lymph # (Auto) Scott # (Auto) Eos # (Auto) Baso # (Auto) Abs Immat Gran (auto) Absolute Neuts (auto) Absolute Nucleated RBC Nucleated RBC % (auto) Neutrophils % (Manual) Band Neutrophils % Lymphocytes % (Manual) Monocytes % (Manual) Abs Neuts (Manual) Lymphocytes # (Manual) Monocytes # (Manual) Toxic Vacuolation Platelet Estimate Plt Morphology Comment RBC Morphology PT INR APTT D-Dimer High Sensitivty VBG pH 7.51 H VBG pCO2 31 VBG pO2 91 VBG HCO3 24 VBG O2 Saturation 98.0 VBG Base Excess 2.7 Anion Gap Estim Creat Clear Calc Estimated GFR Random Glucose Lactic Acid 3.1 H* Lactic Acid F/U @ 2Hr Lactic Acid F/U @ 4Hr Calcium Magnesium Total Bilirubin AST ALT Alkaline Phosphatase Troponin I High Sens B-Natriuretic Peptide Total Protein Albumin Procalcitonin 2.46 Urine Color Urine Appearance Urine pH Ur Specific [place] Urine Protein Urine Glucose (UA) Urine Ketones Urine Blood Urine Nitrite Ur Leukocyte Esterase Urine RBC Urine WBC Ur Squamous Epith Cells Urine Bacteria Hyaline Casts Granular Casts Nasal Screen MRSA (PCR) Nasal S. aureus Screen Nasal MRSA/S.aureus Interp Urine Opiates Screen Urine Fentanyl Screen Ur Barbiturates Screen Ur Phencyclidine Scrn Ur Amphetamines Screen U Benzodiazepines Scrn Urine Cocaine Screen U Marijuana (THC) Screen Influenza Type A (PCR) Influenza Type B (PCR) RSV RNA Qual (PCR) SARS-CoV-2 RNA (RT-PCR) 11/26/22 11/26/22 11/26/22 17:36 17:36 18:34 MCV MCH MCHC RDW Plt Count MPV Immature Gran % (Auto) Neut % (Auto) Lymph % (Auto) Scott % (Auto) Eos % (Auto) Baso % (Auto) Lymph # (Auto) Scott # (Auto) Eos # (Auto) Baso # (Auto) Abs Immat Gran (auto) Absolute Neuts (auto) Absolute Nucleated RBC Nucleated RBC % (auto) Neutrophils % (Manual) Band Neutrophils % Lymphocytes % (Manual) Monocytes % (Manual) Abs Neuts (Manual) Lymphocytes # (Manual) Monocytes # (Manual) Toxic Vacuolation Platelet Estimate Plt Morphology Comment RBC Morphology PT Cancelled 15.1 H INR Cancelled 1.3 H APTT Cancelled 27.2 D-Dimer High Sensitivty VBG pH VBG pCO2 VBG pO2 VBG HCO3 VBG O2 Saturation VBG Base Excess Anion Gap Estim Creat Clear Calc Estimated GFR Random Glucose Lactic Acid Lactic Acid F/U @ 2Hr 4.0 H* Lactic Acid F/U @ 4Hr Calcium Magnesium Total Bilirubin AST ALT Alkaline Phosphatase Troponin I High Sens B-Natriuretic Peptide Total Protein Albumin Procalcitonin Urine Color Urine Appearance Urine pH Ur Specific [place] Urine Protein Urine Glucose (UA) Urine Ketones Urine Blood Urine Nitrite Ur Leukocyte Esterase Urine RBC Urine WBC Ur Squamous Epith Cells Urine Bacteria Hyaline Casts Granular Casts Nasal Screen MRSA (PCR) Nasal S. aureus Screen Nasal MRSA/S.aureus Interp Urine Opiates Screen Urine Fentanyl Screen Ur Barbiturates Screen Ur Phencyclidine Scrn Ur Amphetamines Screen U Benzodiazepines Scrn Urine Cocaine Screen U Marijuana (THC) Screen Influenza Type A (PCR) Influenza Type B (PCR) RSV RNA Qual (PCR) SARS-CoV-2 RNA (RT-PCR) 11/26/22 11/26/22 11/26/22 20:30 20:30 21:03 MCV MCH MCHC RDW Plt Count MPV Immature Gran % (Auto) Neut % (Auto) Lymph % (Auto) Scott % (Auto) Eos % (Auto) Baso % (Auto) Lymph # (Auto) Scott # (Auto) Eos # (Auto) Baso # (Auto) Abs Immat Gran (auto) Absolute Neuts (auto) Absolute Nucleated RBC Nucleated RBC % (auto) Neutrophils % (Manual) Band Neutrophils % Lymphocytes % (Manual) Monocytes % (Manual) Abs Neuts (Manual) Lymphocytes # (Manual) Monocytes # (Manual) Toxic Vacuolation Platelet Estimate Plt Morphology Comment RBC Morphology PT INR APTT D-Dimer High Sensitivty VBG pH VBG pCO2 VBG pO2 VBG HCO3 VBG O2 Saturation VBG Base Excess Anion Gap Estim Creat Clear Calc Estimated GFR Random Glucose Lactic Acid Lactic Acid F/U @ 2Hr Lactic Acid F/U @ 4Hr 3.4 H* Calcium Magnesium Total Bilirubin AST ALT Alkaline Phosphatase Troponin I High Sens B-Natriuretic Peptide Total Protein Albumin Procalcitonin Urine Color Dark Yellow Urine Appearance Cloudy Urine pH 5.0 Ur Specific [place] 1.025 Urine Protein 30 (1+) H Urine Glucose (UA) Negative Urine Ketones Trace Urine Blood Negative Urine Nitrite Negative Ur Leukocyte Esterase Trace H Urine RBC 3-5 H Urine WBC 0-5 Ur Squamous Epith Cells 3-5 Urine Bacteria None Seen Hyaline Casts >20 Granular Casts Nasal Screen MRSA (PCR) Nasal S. aureus Screen Nasal MRSA/S.aureus Interp Urine Opiates Screen Not Detected Urine Fentanyl Screen Not Detected Ur Barbiturates Screen Not Detected Ur Phencyclidine Scrn POSITIVE H Ur Amphetamines Screen Not Detected U Benzodiazepines Scrn Not Detected Urine Cocaine Screen Not Detected U Marijuana (THC) Screen Not Detected Influenza Type A (PCR) Influenza Type B (PCR) RSV RNA Qual (PCR) SARS-CoV-2 RNA (RT-PCR) 11/26/22 11/27/22 11/27/22 21:36 05:52 05:52 MCV 88.1 MCH 28.1 MCHC 31.9 RDW 15.5 Plt Count 203 MPV 10.2 Immature Gran % (Auto) Neut % (Auto) Lymph % (Auto) Scott % (Auto) Eos % (Auto) Baso % (Auto) Lymph # (Auto) Scott # (Auto) Eos # (Auto) Baso # (Auto) Abs Immat Gran (auto) Absolute Neuts (auto) Absolute Nucleated RBC 0.040 H Nucleated RBC % (auto) 0.1 Neutrophils % (Manual) Band Neutrophils % Lymphocytes % (Manual) Monocytes % (Manual) Abs Neuts (Manual) Lymphocytes # (Manual) Monocytes # (Manual) Toxic Vacuolation Platelet Estimate Plt Morphology Comment RBC Morphology PT INR APTT D-Dimer High Sensitivty VBG pH VBG pCO2 VBG pO2 VBG HCO3 VBG O2 Saturation VBG Base Excess Anion Gap 18 Estim Creat Clear Calc 58.7 Estimated GFR 34 Random Glucose 217 H Lactic Acid Lactic Acid F/U @ 2Hr Lactic Acid F/U @ 4Hr Calcium 8.0 L D Magnesium Total Bilirubin AST ALT Alkaline Phosphatase Troponin I High Sens B-Natriuretic Peptide Total Protein Albumin Procalcitonin Urine Color Urine Appearance Urine pH Ur Specific [place] Urine Protein Urine Glucose (UA) Urine Ketones Urine Blood Urine Nitrite Ur Leukocyte Esterase Urine RBC Urine WBC Ur Squamous Epith Cells Urine Bacteria Hyaline Casts Granular Casts Nasal Screen MRSA (PCR) POSITIVE A Nasal S. aureus Screen POSITIVE A Nasal MRSA/S.aureus Interp SEE NOTE Urine Opiates Screen Urine Fentanyl Screen Ur Barbiturates Screen Ur Phencyclidine Scrn Ur Amphetamines Screen U Benzodiazepines Scrn Urine Cocaine Screen U Marijuana (THC) Screen Influenza Type A (PCR) Influenza Type B (PCR) RSV RNA Qual (PCR) SARS-CoV-2 RNA (RT-PCR) 11/27/22 08:50 MCV MCH MCHC RDW Plt Count MPV Immature Gran % (Auto) Neut % (Auto) Lymph % (Auto) Scott % (Auto) Eos % (Auto) Baso % (Auto) Lymph # (Auto) Scott # (Auto) Eos # (Auto) Baso # (Auto) Abs Immat Gran (auto) Absolute Neuts (auto) Absolute Nucleated RBC Nucleated RBC % (auto) Neutrophils % (Manual) Band Neutrophils % Lymphocytes % (Manual) Monocytes % (Manual) Abs Neuts (Manual) Lymphocytes # (Manual) Monocytes # (Manual) Toxic Vacuolation Platelet Estimate Plt Morphology Comment RBC Morphology PT INR APTT D-Dimer High Sensitivty VBG pH VBG pCO2 VBG pO2 VBG HCO3 VBG O2 Saturation VBG Base Excess Anion Gap Estim Creat Clear Calc Estimated GFR Random Glucose Lactic Acid Lactic Acid F/U @ 2Hr Lactic Acid F/U @ 4Hr Calcium Magnesium Total Bilirubin AST ALT Alkaline Phosphatase Troponin I High Sens B-Natriuretic Peptide Total Protein Albumin Procalcitonin Urine Color Dark Yellow Urine Appearance Cloudy Urine pH 5.0 Ur Specific [place] 1.020 Urine Protein 30 (1+) H Urine Glucose (UA) Negative Urine Ketones Trace Urine Blood Negative Urine Nitrite Negative Ur Leukocyte Esterase Trace H Urine RBC 0-2 Urine WBC 0-5 Ur Squamous Epith Cells 6-10 Urine Bacteria None Seen Hyaline Casts 6-10 Granular Casts Present Nasal Screen MRSA (PCR) Nasal S. aureus Screen Nasal MRSA/S.aureus Interp Urine Opiates Screen Urine Fentanyl Screen Ur Barbiturates Screen Ur Phencyclidine Scrn Ur Amphetamines Screen U Benzodiazepines Scrn Urine Cocaine Screen U Marijuana (THC) Screen Influenza Type A (PCR) Influenza Type B (PCR) RSV RNA Qual (PCR) SARS-CoV-2 RNA (RT-PCR) Impressions Chest X-Ray 11/26/22 15:05 IMPRESSION: Left upper lobe consolidation/infiltrate. Chest CT 11/26/22 19:08 IMPRESSION: An approximately 6.8 cm centrally cavitating left upper lobe pulmonary mass with surrounding groundglass and crazy paving. Multiple additional solid pulmonary nodules are seen predominantly throughout the left lung, many with central cavitation as well as few scattered areas of groundglass and consolidation. Differential considerations would include both infectious/inflammatory or neoplastic etiology, including pulmonary tuberculosis, or other infectious etiology, including atypical infections and septic emboli, granulomatous etiology, or malignant etiology. Recommend correlation with clinical symptoms and consider further evaluation with bronchoscopy. Small left pleural effusion with trace left pulmonary edema. Fleischner guidelines were followed. The findings and recommendations were discussed with Dr. Beatty by telephone at 11/26/2022 8:33 PM and it was ascertained that the content and urgency of the report was understood at the time of direct communication. Assessment and Plan (1) Cavitary pneumonia: Status: Acute (2) Sepsis with acute hypoxic respiratory failure: Status: Acute Plan hospital d#2 42yo M with OUD on Suboxone (abstinent of heroin x 2yr), recently incarcerated x8mo, presenting after 2 weeks of worsening cough and dyspnea Admitted for severe sepsis with hypoxia and SIMBA due to PNA, found to have multifocal cavitary PNA # severe sepsis due to multifocal cavitary PNA - broadened antibiotic coverage to vancomycin 11/27-, pip-delano 11/27-, and azithromycin 11/26- - airborne precautions, T-spot, ID + Pulm consultations, AFB smear/Cx x3 - Legionella + pneumococcal Ags pending - MRSA swab POSITIVE # AHRF - on HFNC, wean as tolerated, place on continuous SaO2 # SIMBA - suspect prerenal vs septic ATN. continue fluid resuscitation, avoid nephrotoxins, and recheck BMP in AM # OUD - Suboxone # mood disorder - continue valproate, olanzapine, prazosin, mirtazapine # VTE ppx: LMWH # dispo: TBD In my clinical judgment, the patient requires continued inpatient hospitalization for the following reasons: hypoxia requiring HFNC, IV ABX, TB rule-out Time Spent With Patient Time: Total time managing care of this patient today __50__ minutes. Quality Stroke Does the patient have a stroke diagnosis?: No VTE Prior VTE?: No VTE Risk Level:: Medical - moderate - high VTE Device Contraindication: Treatment Not Indicated VTE Drug Contraindication: N/A - Med Ordered
[2022-11-27] MEDS: Morphine Sulfate 4 MG/ML CARTRIDGE IVPUSH (11:34)
[2022-11-27] MEDS: vancomycin HCL 500 MG in 0.9 % Sodium Chloride 100 ML 110 MG IV ×2 (11:42→21:49)
[2022-11-27] MEDS: Lidocaine 4 % Patch ADH..PATCH 1 PATCH TRANSDERMA (11:43)
[2022-11-27] MEDS: Azithromycin 500 MG in 0.9 % Sodium Chloride 250 ML 125 MG IV (17:56)
[2022-11-27] MEDS: Enoxaparin Sodium 40 MG/0.4 ML SYRINGE SUBCUT (17:57)
[2022-11-27] MEDS: Prazosin HCL 1 MG CAPSULE 2 MG PO (21:48)
[2022-11-27] MEDS: Mirtazapine 15 MG TABLET 45 MG PO (21:48)
[2022-11-27] MEDS: bisacodyL 5 MG TABLET.DR PO (21:48)
[2022-11-27] MEDS: OLANZapine 10 MG TABLET PO (21:48)
[2022-11-27] MEDS: Buprenorphine/Naloxone 8/2 mg FILM 1 FILM BUCCAL (21:49)
[2022-11-27] MEDS: Divalproex Sodium 500 MG TABLET.DR 2000 MG PO (21:49)
[2022-11-28] VITALS (10 sets, daily range): BP systolic 133–168; BP diastolic 62–95; PULSE 64–125; RESP 17–20; TEMP 36.1–37.3; O2SAT 92–97
[2022-11-28 04:08] LABS: HIV AB/AG Nonreactive (Nonreactive); HIV Num 1 0.06 S/CO (0.00-0.99)
[2022-11-28] MEDS: Piperacillin Sodium/Tazobactam 3.375 GM in 0.9 % Sodium Chloride 50 ML IV ×2 (04:16→09:41)
[2022-11-28] MEDS: Morphine Sulfate 4 MG/ML CARTRIDGE IVPUSH (04:21)
[2022-11-28] MEDS: Lactated Ringers 1,000 ML 125 ML IVCONT ×2 (06:16→18:59)
[2022-11-28] MEDS: Buprenorphine/Naloxone 2/0.5mg FILM 1 FILM SUBLINGUAL ×4 (06:16→18:59)
[2022-11-28] MEDS: Buprenorphine/Naloxone 4/1 mg FILM 1 FILM SUBLINGUAL ×4 (06:16→18:59)
[2022-11-28 07:43] LABS: Hematocrit 33.2 % (42.0-52.0); Hemoglobin 10.8 g/dl (14.0-18.0); Mean Corpuscular HGB Conc 32.5 g/dl (31.0-36.0); Mean Corpuscular Hemoglobin 28.1 pg (27.0-33.0); Mean Corpuscular Volume 86.2 fL (80.0-98.0); Mean Platelet Volume 9.9 fL (9.4-12.4); NRBC Pct Auto 0.2 /100WBC (0.0-0.2); Platelet Count 194 X10*3/uL (160-400); Red Blood Count 3.85 X10*6/uL (4.60-5.80); Red Cell Distribution Width 15.9 % (11.0-16.0)
[2022-11-28 08:14] LABS: WBC ABN SCTR FOR CBC 1
[2022-11-28 08:20] LABS: Band Neutrophils Percent 8 % (3-5); Lymphocytes Percent Manual 5 % (20-40); Metamyelocytes Percent 1 %; Monocytes Percent Manual 4 % (2-11); Neutrophils Percent Manual 82 % (45-73)
[2022-11-28 08:23] LABS: Toxic Vacuolation PRESENT; Vancomycin Trough 6.2 mcg/mL (10.0-20.0)
[2022-11-28 08:26] LABS: Platelet Estimate NORMAL (NORMAL); Platelet Morphology Comment NORMAL; RBC Morphology NORMAL
[2022-11-28 08:38] LABS: Metamyelocytes Absolute 0.4 X10*3/uL; Monocytes Absolute Manual 1.6 X10*3/uL (0.1-1.2); Neutrophils Absolute Manual 35.6 X10*3/uL (2.0-8.3); White Blood Count 39.5 X10*3/uL (4.8-10.8)
[2022-11-28 08:59] LABS: Anion Gap 12 (12-20); Blood Urea Nitrogen 41 mg/dL (9-16); Calcium 8.2 mg/dL (8.4-10.2); Carbon Dioxide 28 mmol/L (22-29); Chloride 102 mmol/L (96-108); Creatinine Clr Calc Pharmacy 125.6; Estimated Glomerular Filt Rate > 60; Glucose Random 105 mg/dL (60-115); Potassium 4.1 mmol/L (3.3-5.1); Procalcitonin 2.01 ng/mL; Sodium 138 mmol/L (135-145)
--- NOTE | 2022-11-28 09:32 | HE.PHANOTE ---
Vancomycin Dosing Level is 6.2 today. Renal function has improved. CrCl has doubled in 24 hours. Will increase dose to vancomycin 1000 mg Q8H. Expected AUC 482 with a trough of 17.7. Next level to be drawn 11/29 @ 0800. Whitney Carter, RimaD
[2022-11-28] MEDS: 0.9 % Sodium Chloride Flush 3 ML SYRINGE IVFLUSH (09:35)
[2022-11-28] MEDS: Sodium Chloride 3 % Inhalation 15 ML VIAL.NEB INHALE (09:37)
[2022-11-28] MEDS: Lidocaine 4 % Patch ADH..PATCH 1 PATCH TRANSDERMA (09:41)
--- NOTE | 2022-11-28 11:05 | HO.PM.IMPN ---
Subjective Subjective Date of Service: 11/28/22 Interval History: No fever Ongoing cough + dyspnea On HFNC, 40% fiO2 @ 30 Lpm Review of Systems Review of Systems: Yes all other systems are reviewed and are negative Physical Exam Vital Signs: Vital Signs: Last Vital Signs Temp 97.9 F 11/28/22 07:59 Pulse 109 H 11/28/22 09:36 Resp 20 11/28/22 09:36 BP 142/62 H 11/28/22 07:59 Pulse Ox 94 11/28/22 07:59 O2 Del Method 11/28/22 07:59 O2 Flow Rate 45 11/28/22 07:59 FiO2 80 11/28/22 04:00 BMI result Body Mass Index 32.3 Const: Other: Gen: in no acute distress HEENT: sclera anicteric, moist mucus membranes, no thrush Neck: supple Lungs: diminished L upper whitehead, rhonchi Heart: regular, tachycardic, no murmurs Abd: soft, non-tender, non-distended Ext: no edema Skin: warm/well-perfused Neuro: alert and oriented x3, no focal findings Psych: appropriate affect Objective Data Active Medications Acetaminophen (Acetaminophen 325 Mg Tablet) 650 mg PO Q6H PRN PRN Reason: Pain, Mild (Pain Scale 1-3) Bisacodyl (Bisacodyl 5 Mg Tablet.) 5 mg PO BEDTIME [facility] Last Admin: 11/27/22 21:48 Dose: 5 mg Documented By: NIRMAL Buprenorphine/Naloxone (Buprenorphine/Naloxone 8/2 Mg Film) 1 film BUCCAL BEDTIME [facility] Last Admin: 11/27/22 21:49 Dose: 1 film Documented By: NIRMAL Buprenorphine/Naloxone (Buprenorphine/Naloxone 4/1 Mg Film) 1 film SUBLINGUAL 0600,1000,1400,1800 [facility] Last Admin: 11/28/22 09:41 Dose: 1 film Documented By: BANG Buprenorphine/Naloxone (Buprenorphine/Naloxone 2/0.5mg Film) 1 film SUBLINGUAL 0600,1000,1400,1800 [facility] Last Admin: 11/28/22 09:41 Dose: 1 film Documented By: BANG Divalproex Sodium (Divalproex Sodium 500 Mg Tablet.) 2,000 mg PO BEDTIME [facility] Last Admin: 11/27/22 21:49 Dose: 2,000 mg Documented By: NIRMAL Docusate Sodium (Docusate Sodium 100 Mg Capsule) 100 mg PO DAILY PRN PRN Reason: Constipation Enoxaparin Sodium (Enoxaparin Sodium 40 Mg/0.4 Ml Syringe) 40 mg SUBCUT Q24H [facility] Last Admin: 11/27/22 17:57 Dose: 40 mg Documented By: SHILPA Guaifenesin/Dextromethorphan (Guaifenesin Dm 100/10/5 Ml 5 Ml Syrup) 5 ml PO Q4H PRN PRN Reason: Cough Last Admin: 11/27/22 22:07 Dose: 5 ml Documented By: NIRMAL Piperacillin Sod/Tazobactam (Sod 3.375 gm/ Sodium Chloride) 50 mls @ 100 mls/hr IV Q6H [facility] Last Admin: 11/28/22 09:41 Dose: 100 mls/hr Documented By: BANG Lactated Ringer's (Lr) 1,000 mls @ 125 mls/hr IVCONT .Q8H [facility] Last Admin: 11/28/22 06:16 Dose: 125 mls/hr Documented By: RELL Azithromycin 500 mg/ Sodium (Chloride) 250 mls @ 125 mls/hr IV Q24H [facility] Last Infusion: 11/27/22 19:57 Dose: 0 mls/hr Documented By: NIRMAL Vancomycin HCl 1,000 mg/ (Sodium Chloride) 270 mls @ 270 mls/hr IV Q8H [facility] Ibuprofen (Ibuprofen 800 Mg Tablet) 800 mg PO Q6H PRN PRN Reason: Back Pain Last Admin: 11/26/22 20:14 Dose: 800 mg Documented By: FLORIAN Lidocaine (Lidocaine 4 % Patch Adh..Patch) 1 patch TRANSDERMA DAILY [facility]; Protocol Last Admin: 11/28/22 09:41 Dose: 1 patch Documented By: BANG Loratadine (Loratadine 10 Mg Tablet) 10 mg PO BEDTIME PRN PRN Reason: Allergy Symptoms Mirtazapine (Mirtazapine 15 Mg Tablet) 45 mg PO BEDTIME [facility] Last Admin: 11/27/22 21:48 Dose: 45 mg Documented By: NIRMAL Morphine Sulfate (Morphine Sulfate 4 Mg/Ml Cartridge) 4 mg IVPUSH Q4H PRN; Protocol PRN Reason: severe pain Last Admin: 11/28/22 04:21 Dose: 4 mg Documented By: RELL Olanzapine (Olanzapine 10 Mg Tablet) 10 mg PO BEDTIME [facility] Last Admin: 11/27/22 21:48 Dose: 10 mg Documented By: NIRMAL Oxycodone HCl (Oxycodone Hcl Immed Release 5 Mg Tablet) 7.5 mg PO Q4H PRN PRN Reason: Pain, Severe (Pain Scale 7-10) Pharmacy Consult (Consult Rx Vancomycin Dosing) 1 each MISCELLANE DAILY PRN PRN Reason: Consult order Prazosin HCl (Prazosin Hcl 1 Mg Capsule) 2 mg PO BEDTIME [facility]; Protocol Last Admin: 11/27/22 21:48 Dose: 2 mg Documented By: NIRMAL Sodium Chloride (0.9 % Sodium Chloride Flush 3 Ml Syringe) 3 ml IVFLUSH QSHIFT [facility] Last Admin: 11/28/22 09:35 Dose: 3 ml Documented By: MAURI Sodium Chloride (Sodium Chloride 3 % Inhalation 15 Ml Vial.Neb) 15 ml INHALE DAILY [facility] Stop: 11/30/22 09:01 Last Admin: 11/28/22 09:37 Dose: 15 ml Documented By: MAURI Labs 11/28/22 06:57 11/28/22 06:57 Labs: Laboratory Results - last 24 hr 11/26/22 11/26/22 11/28/22 15:59 18:34 06:57 MCV MCH MCHC RDW Plt Count MPV Immature Gran % (Auto) Neut % (Auto) Lymph % (Auto) [place] % (Auto) Eos % (Auto) Baso % (Auto) Lymph # (Auto) [place] # (Auto) Eos # (Auto) Baso # (Auto) Abs Immat Gran (auto) Absolute Neuts (auto) Absolute Nucleated RBC Nucleated RBC % (auto) Neutrophils % (Manual) Band Neutrophils % Lymphocytes % (Manual) Monocytes % (Manual) Metamyelocytes % Abs Neuts (Manual) Lymphocytes # (Manual) Monocytes # (Manual) Metamyelocytes # Toxic Vacuolation Platelet Estimate Plt Morphology Comment RBC Morphology Smear Path Review Anion Gap Estim Creat Clear Calc Estimated GFR Random Glucose Calcium Procalcitonin Vancomycin Trough 6.2 L HIV 1&2 Ab/P24 Ag 4thGn Nonreactive 11/28/22 11/28/22 06:57 06:57 MCV 86.2 MCH 28.1 MCHC 32.5 RDW 15.9 Plt Count 194 MPV 9.9 Immature Gran % (Auto) Cancelled Neut % (Auto) Cancelled Lymph % (Auto) Cancelled [place] % (Auto) Cancelled Eos % (Auto) Cancelled Baso % (Auto) Cancelled Lymph # (Auto) Cancelled [place] # (Auto) Cancelled Eos # (Auto) Cancelled Baso # (Auto) Cancelled Abs Immat Gran (auto) Cancelled Absolute Neuts (auto) Cancelled Absolute Nucleated RBC 0.060 H Nucleated RBC % (auto) 0.2 Neutrophils % (Manual) 82 H Band Neutrophils % 8 H Lymphocytes % (Manual) 5 L Monocytes % (Manual) 4 Metamyelocytes % 1 Abs Neuts (Manual) 35.6 H Lymphocytes # (Manual) 2.0 Monocytes # (Manual) 1.6 H Metamyelocytes # 0.4 Toxic Vacuolation PRESENT Platelet Estimate NORMAL Plt Morphology Comment NORMAL RBC Morphology NORMAL Smear Path Review Anion Gap 12 Estim Creat Clear Calc 125.6 Estimated GFR > 60 Random Glucose 105 Calcium 8.2 L Procalcitonin 2.01 Vancomycin Trough HIV 1&2 Ab/P24 Ag 4thGn Microbiology Microbiology Results: Microbiology 11/26/22 16:13 Blood Culture - Preliminary Blood - Venous No growth after 24 hours. 11/26/22 16:13 Blood Culture - Preliminary Blood - Venous No growth after 24 hours. Assessment and Plan (1) Cavitary pneumonia: Status: Acute (2) Sepsis with acute hypoxic respiratory failure: Status: Acute Plan hospital d#3 42yo M with OUD on Suboxone (abstinent of heroin x 2yr), recently incarcerated x8mo, presenting after 2 weeks of worsening cough and dyspnea Admitted for severe sepsis with hypoxia and SIMBA due to PNA, found to have multifocal cavitary PNA # severe sepsis due to multifocal cavitary PNA - broadened antibiotic coverage to vancomycin 11/27-, pip-delano 11/27-, and azithromycin 11/26- - airborne precautions, T-spot, ID + Pulm consultations pending, AFB smear/Cx x3 - Legionella + pneumococcal Ags pending - MRSA swab POSITIVE - HIV Ab/Ag negative - TTE to assess for septic pulmonary emboli # AHRF - on HFNC, wean as tolerated # SIMBA - suspect prerenal vs septic ATN. resolved after fluid resuscitation # OUD - Suboxone # mood disorder - continue valproate, olanzapine, prazosin, mirtazapine # VTE ppx: LMWH # dispo: TBD In my clinical judgment, the patient requires continued inpatient hospitalization for the following reasons: hypoxia requiring HFNC, IV ABX, TB rule-out Time Spent With Patient Time: Total time managing care of this patient today _55___ minutes. Quality Stroke Does the patient have a stroke diagnosis?: No VTE Prior VTE?: No VTE Risk Level:: Medical - moderate - high VTE Device Contraindication: Treatment Not Indicated VTE Drug Contraindication: N/A - Med Ordered
[2022-11-28] MEDS: oxyCODONE HCl Immed Release 5 MG TABLET 7.5 MG PO ×2 (11:09→14:48)
[2022-11-28] MEDS: vancomycin HCL 1,000 MG in 0.9 % Sodium Chloride 250 ML 270 MG IV (11:21)
[2022-11-28] MEDS: Linezolid 600 MG TABLET PO (14:48)
--- NOTE | 2022-11-28 15:51 | W.PM.IDCN ---
History of Present Illness Data of Consult Service Date: 11/28/22 Requesting physician: Bianca Zuluaga Primary Care Provider: None Physician HPI Reason for consult: cavitary lung lesions He presents with two weeks cough,productive white sputum. He denies hemoptysis He denies fever at this time He denies any foreign travel or ill pets. He has been incarcerated recently. Review of Systems Review of Systems: Yes all other systems are reviewed and are negative PMFSH Past Medical History Medical History Anxiety Bipolar 1 disorder Cavitary pneumonia PTSD (post-traumatic stress disorder) Substance use disorder Family History Family history: reviewed and not pertinent Social History Social History Household Members: Spouse and None Housing: House Unable to assess alcohol history related to: Unknown Alcohol intake: never Patient Tobacco Use Status: Former Tobacco user Smoked in Last 30 Days: Yes Patient Interested in Nicotine Replacement: No Use of substances other than those prescribed or required for medical reasons: Yes Substance Use Type: Other Currently Displaying Signs/Symptoms of Drug Intoxication Withdrawal: No Any prior treatment program specific to substance use: No Have you been hit, kicked, punched, or otherwise hurt by someone within the past year? If so, by whom?: No Do you feel safe in your current relationship?: Yes Is there a partner from a previous relationship who is making you feel unsafe now?: No Are you made to feel afraid or neglected: No Advance Directives: No Nutrition Risks: No Nutritional Risk service: No Current occupational status: disabled Meds Allergies Allergy/AdvReac Type Severity Reaction Status Date / Time quetiapine [From Seroquel] Allergy Chest Pain Verified 11/26/22 17:13 Active Medications: Current Medications Acetaminophen (Acetaminophen 325 Mg Tablet) 650 mg PO Q6H PRN PRN Reason: Pain, Mild (Pain Scale 1-3) Bisacodyl (Bisacodyl 5 Mg Tablet.Dr) 5 mg PO BEDTIME [facility] Last Admin: 11/27/22 21:48 Dose: 5 mg Buprenorphine/Naloxone (Buprenorphine/Naloxone 8/2 Mg Film) 1 film BUCCAL BEDTIME [facility] Last Admin: 11/27/22 21:49 Dose: 1 film Buprenorphine/Naloxone (Buprenorphine/Naloxone 4/1 Mg Film) 1 film SUBLINGUAL 0600,1000,1400,1800 [facility] Last Admin: 11/28/22 14:48 Dose: 1 film Buprenorphine/Naloxone (Buprenorphine/Naloxone 2/0.5mg Film) 1 film SUBLINGUAL 0600,1000,1400,1800 [facility] Last Admin: 11/28/22 14:48 Dose: 1 film Divalproex Sodium (Divalproex Sodium 500 Mg Tablet.Dr) 2,000 mg PO BEDTIME [facility] Last Admin: 11/27/22 21:49 Dose: 2,000 mg Docusate Sodium (Docusate Sodium 100 Mg Capsule) 100 mg PO DAILY PRN PRN Reason: Constipation Enoxaparin Sodium (Enoxaparin Sodium 40 Mg/0.4 Ml Syringe) 40 mg SUBCUT Q24H [facility] Last Admin: 11/27/22 17:57 Dose: 40 mg Guaifenesin/Dextromethorphan (Guaifenesin Dm 100/10/5 Ml 5 Ml Syrup) 5 ml PO Q4H PRN PRN Reason: Cough Last Admin: 11/27/22 22:07 Dose: 5 ml Lactated Ringer's (Lr) 1,000 mls @ 125 mls/hr IVCONT .Q8H [facility] Last Infusion: 11/28/22 14:45 Dose: Infused Ibuprofen (Ibuprofen 800 Mg Tablet) 800 mg PO Q6H PRN PRN Reason: Back Pain Last Admin: 11/26/22 20:14 Dose: 800 mg Lidocaine (Lidocaine 4 % Patch Adh..Patch) 1 patch TRANSDERMA DAILY [facility]; Protocol Last Admin: 11/28/22 09:41 Dose: 1 patch Linezolid (Linezolid 600 Mg Tablet) 600 mg PO Q12H [facility] Last Admin: 11/28/22 14:48 Dose: 600 mg Loratadine (Loratadine 10 Mg Tablet) 10 mg PO BEDTIME PRN PRN Reason: Allergy Symptoms Mirtazapine (Mirtazapine 15 Mg Tablet) 45 mg PO BEDTIME [facility] Last Admin: 11/27/22 21:48 Dose: 45 mg Morphine Sulfate (Morphine Sulfate 4 Mg/Ml Cartridge) 4 mg IVPUSH Q4H PRN; Protocol PRN Reason: severe pain Last Admin: 11/28/22 04:21 Dose: 4 mg Olanzapine (Olanzapine 10 Mg Tablet) 10 mg PO BEDTIME [facility] Last Admin: 11/27/22 21:48 Dose: 10 mg Oxycodone HCl (Oxycodone Hcl Immed Release 5 Mg Tablet) 7.5 mg PO Q4H PRN PRN Reason: Pain, Severe (Pain Scale 7-10) Last Admin: 11/28/22 14:48 Dose: 7.5 mg Pharmacy Consult (Consult Rx Vancomycin Dosing) 1 each MISCELLANE DAILY PRN PRN Reason: Consult order Prazosin HCl (Prazosin Hcl 1 Mg Capsule) 2 mg PO BEDTIME [facility]; Protocol Last Admin: 11/27/22 21:48 Dose: 2 mg Sodium Chloride (0.9 % Sodium Chloride Flush 3 Ml Syringe) 3 ml IVFLUSH QSHIFT [facility] Last Admin: 11/28/22 09:35 Dose: 3 ml Sodium Chloride (Sodium Chloride 3 % Inhalation 15 Ml Vial.Neb) 15 ml INHALE DAILY [facility] Stop: 11/30/22 09:01 Last Admin: 11/28/22 09:37 Dose: 15 ml Home Medications Medication Instructions Recorded Confirmed Last Taken Type bisacodyl 5 mg tablet,delayed 5 mg PO BEDTIME 11/26/22 11/26/22 11/25/22 History release buprenorphine 12 mg-naloxone 3 mg 0.5 film buccal TID@0600,1000,1400 11/26/22 11/26/22 11/26/22 History sublingual film (Suboxone) buprenorphine 12 mg-naloxone 3 mg 0.5 strip sublingual DAILY@1800 11/26/22 11/26/22 11/25/22 History sublingual film (Suboxone) buprenorphine 8 mg-naloxone 2 mg 1 film buccal BEDTIME 11/26/22 11/26/22 11/25/22 History sublingual film (Suboxone) cetirizine 10 mg tablet 10 mg PO BEDTIME PRN Allergy 11/26/22 11/26/22 11/25/22 History Symptoms divalproex 500 mg tablet,delayed 4 tab PO BEDTIME 11/26/22 11/26/22 11/25/22 History release docusate sodium 100 mg capsule 100 mg PO BEDTIME 11/26/22 11/26/22 11/25/22 History ibuprofen 800 mg tablet 800 mg PO Q6H PRN Back Pain 11/26/22 11/26/22 11/25/22 History mirtazapine 45 mg tablet 1 tab PO BEDTIME 11/26/22 11/26/22 11/25/22 History olanzapine 5 mg tablet 2 tab PO BEDTIME 11/26/22 11/26/22 11/25/22 History prazosin 2 mg capsule 2 mg PO BEDTIME 11/26/22 11/26/22 11/25/22 History Physical Exam Vital Signs: Vital Signs: Last Vital Signs Temp 97.9 F 11/28/22 15:02 Pulse 105 H 11/28/22 15:02 Resp 18 11/28/22 15:02 BP 134/89 11/28/22 15:02 Pulse Ox 93 11/28/22 15:02 O2 Del Method 11/28/22 15:02 O2 Flow Rate 3 11/28/22 15:02 FiO2 80 11/28/22 04:00 BMI result Body Mass Index 32.3 Const: General: cooperative HEENT: Head: Yes normal to inspection Face and sinus: Yes normal facial exam Mouth: Normal oral and palatal mucosa present Teeth and gingiva: dentition normal Eyes: General: appearance normal, both eyes and all related structures Pupils: Equal, round and reactive pupils present Resp: Effort & Inspection: normal respiratory effort Cardio: Rate: regular rate Rhythm: regular rhythm GI: Palpation (GI): Soft to palpation and nontender : General: Yes no CVA tenderness Back/Spine/Pelvis: Back: no CVA tenderness Skin: General skin exam: no rashes or lesions noted Neuro: General: moves all extremities Cranial nerves: Yes Equal, round and reactive pupils present Extrem: General: Yes normal to inspection Psych: Appearance: grossly normal Results Labs 11/28/22 06:57 11/28/22 06:57 Labs: Short CBC 11/28/22 Range/Units 06:57 WBC 39.5 H* (4.8-10.8) X10*3/uL Hgb 10.8 L (14.0-18.0) g/dl Hct 33.2 L (42.0-52.0) % Plt Count 194 (160-400) X10*3/uL BMP 11/28/22 06:57 Sodium 138 Potassium 4.1 Chloride 102 Carbon Dioxide 28 BUN 41 H Creatinine 1.00 Calcium 8.2 L Microbiology Microbiology Results: Microbiology 11/28/22 09:33 Sputum - Expectorated Gram Stain - Final 11/26/22 16:13 Blood - Venous Blood Culture - Preliminary No growth after 24 hours. 11/26/22 16:13 Blood - Venous Blood Culture - Preliminary No growth after 24 hours. Assessment and Plan (1) Cavitary pneumonia: Status: Acute He has MRSA as likely cause of cavitary pneumonia with no history of tuberculosis in past doubt cavities form that quickly from tuberculosis. He also has no hemoptysis. (2) Sepsis with acute hypoxic respiratory failure: Status: Acute Plan Linezolid 600 mg bid cover MRSA pneumonia for 14 days. Time Spent With Patient Time: Total time managing care of this patient today ____ minutes.
[2022-11-28 15:58] LABS: Glucose, Whole Blood 197 mg/dL (60-115)
[2022-11-28] MEDS: Albuterol/Iprat 2.5/0.5MG 3 ML AMPUL.NEB INHALE (16:33)
[2022-11-28] MEDS: Enoxaparin Sodium 40 MG/0.4 ML SYRINGE SUBCUT (18:59)
[2022-11-28] MEDS: Buprenorphine/Naloxone 8/2 mg FILM 1 FILM BUCCAL (20:28)
[2022-11-28] MEDS: Divalproex Sodium 500 MG TABLET.DR 2000 MG PO (20:28)
[2022-11-28] MEDS: bisacodyL 5 MG TABLET.DR PO (20:28)
[2022-11-28] MEDS: Ibuprofen 800 MG TABLET PO (20:29)
[2022-11-28] MEDS: Prazosin HCL 1 MG CAPSULE 2 MG PO (20:29)
[2022-11-28] MEDS: OLANZapine 10 MG TABLET PO (20:29)
[2022-11-28] MEDS: Mirtazapine 15 MG TABLET 45 MG PO (20:29)
[2022-11-28] MEDS: guaiFENesin DM 100/10/5 ML 5 ML SYRUP PO (20:30)
[2022-11-28 21:13] LABS: Glucose, Whole Blood 192 mg/dL (60-115)
[2022-11-29] VITALS (8 sets, daily range): BP systolic 121–153; BP diastolic 61–81; PULSE 76–112; RESP 18–22; TEMP 36.6–37.1; O2SAT 90–97
[2022-11-29] MEDS: Linezolid 600 MG TABLET PO ×2 (02:46→15:23)
[2022-11-29] MEDS: 0.9 % Sodium Chloride Flush 3 ML SYRINGE IVFLUSH (02:47)
[2022-11-29] MEDS: Lactated Ringers 1,000 ML 125 ML IVCONT ×3 (02:47→17:38)
[2022-11-29] MEDS: Buprenorphine/Naloxone 2/0.5mg FILM 1 FILM SUBLINGUAL ×4 (05:38→17:38)
[2022-11-29] MEDS: Buprenorphine/Naloxone 4/1 mg FILM 1 FILM SUBLINGUAL ×4 (05:38→17:38)
--- NOTE | 2022-11-29 07:00 | CA_ITS ---
Transthoracic Echocardiogram Patient (Last, First, Middle): Tony Wilkins, Gender: Male Date of : 1980 Age: 42 Procedure Date: 11/29/2022 Procedure Type: Transthoracic Echocardiogram Location: [facility] – [place] Height: 185.42 cm Weight: 110.68 kg BSA: 2.34 m2 Heart Rate: bpm BP: 150 / 75 mmHg School Fundraising Director: TONIA Referring MD: Arnaud Sanabria MD Symptoms: bacteremia r/o vegetations Study Quality: Technically Difficult/Contrast Conclusions: - Normal left ventricular size, thickness, and systolic function. The visually estimated ejection fraction is between 55-60%. - Normal right ventricular cavity size and systolic function. - The aortic valve was not well visualized. - Likely normal mitral valve structure and function. - The tricuspid valve was not well visualized. - Limited evaluation of the valves. Findings Procedure Information Contrast agent, definity, is being given per protocol without apparent complications. Left Ventricle Normal left ventricular size, thickness, and systolic function. The visually estimated ejection fraction is between 55-60%. Regional wall motion abnormalities can not be excluded due to suboptimal endocardial definition. Diastolic function is normal for age. Right Ventricle Normal right ventricular cavity size and systolic function. Atria The left atrium was not well visualized. Aortic Valve The aortic valve was not well visualized. There is no aortic valve stenosis. There is no aortic valve regurgitation. Mitral Valve Likely normal mitral valve structure and function. There is no mitral valve regurgitation. There is no mitral valve stenosis. Pulmonic Valve The pulmonic valve was not well visualized. Tricuspid Valve The tricuspid valve was not well visualized. Tricuspid regurgitation envelope is inadequate for calculation of right ventricular systolic pressure. Mildly elevated right atrial pressure. Great Vessels All visible segments of the aorta are normal in size. Venous The inferior vena cava is dilated and collapses greater than 50% with inspiration. Pericardium/Pleural There is no evidence of pericardial effusion. There is a moderate pleural effusion. Prior Study Comparison No prior study available for comparison. Recommendations, Care & Conclusions Consider a TAMIR if clinically appropriate. Measurements 2D Linear Measurements IVSd: 0.98 0.6-0.9/0.6-1.0 cm LVIDd: 5.32 3.9-5.3/4.2-5.9 cm LVIDd Index: 2.27 2.4-3.2/2.2-3.1 cm/m2 LVIDs: 3.50 2.0-3.6 cm LVPWd: 1.07 0.7-1.1 cm LA Diam: 2.80 2.7-3.8/3.0-4.0 cm LAIDs Index: 1.20 1.5-2.3 cm/m2 LV Mass: 258.89 67-162/88-224 g LV Mass Index: 110.64 43-95/49-115 g/m2 LVOT Diam: 2.20 3.0+(-)1.3 cm Mitral Valve MV Pk E: 0.55 MV PK A: 0.44 MV Decel Time: 216.00 E/A: 1.20 E'Lateral: 6.96 E'Medial: 5.98 E/E' Med: 9.20 E/E' Lat: 7.90 PHT: 63.00 MVA PHT: 3.49 Decel Mcpherson: 2.54 Aortic Valve AoV Pk Romaine: 1.35 AoV Mn Romaine: 1.05 AoV VTI: 0.23 AoV Pk Grad: 7.00 Aov Mn Grad: 5.00 CORNELIUS Cont.VTI: 3.17 LVOT LVOT Pk Romaine: 1.12 LVOT Mn Romaine: 0.75 LVOT VTI: 0.19 LVOT Pk Grad: 5.00 LVOT Mn Grad: 3.00 LVOT Diam: 2.20 LVOT Area: 3.80 Diastolic Function MV Pk E: 0.55 MV Pk A: 0.44 E/A: 1.20 E'Medial: 5.98 E/E' Med: 9.20 E' Laterial: 6.96 E/E' Lat: 7.90 Right Ventricle TAPSE (mm): 19.80 TVS' Romaine: 15.30 Tricuspid Valve RA Press: 15.00 Great Vessels Aorta Sinus of Valsalva: 3.61 2.0-3.5 cm Ao Asc: 3.20 2.1-3.4 cm Updated in Other Vendor System with Status of Final Jeffery Galindo MD electronically signed on 11/29/2022 8:03:14 PM with status of Final
[2022-11-29] MEDS: Sodium Chloride 3 % Inhalation 15 ML VIAL.NEB INHALE (07:58)
[2022-11-29 08:09] LABS: Hematocrit 33.8 % (42.0-52.0); Hemoglobin 10.9 g/dl (14.0-18.0); Mean Corpuscular HGB Conc 32.2 g/dl (31.0-36.0); Mean Corpuscular Hemoglobin 27.9 pg (27.0-33.0); Mean Corpuscular Volume 86.4 fL (80.0-98.0); Mean Platelet Volume 10.1 fL (9.4-12.4); NRBC Pct Auto 0.3 /100WBC (0.0-0.2); Platelet Count 174 X10*3/uL (160-400); Red Blood Count 3.91 X10*6/uL (4.60-5.80); Red Cell Distribution Width 16.4 % (11.0-16.0); White Blood Count 28.1 X10*3/uL (4.8-10.8)
[2022-11-29 08:26] LABS: Vancomycin Random 5.1 mcg/mL (15-20)
[2022-11-29 08:35] LABS: Anion Gap 14 (12-20); Blood Urea Nitrogen 31 mg/dL (9-16); Calcium 8.2 mg/dL (8.4-10.2); Carbon Dioxide 28 mmol/L (22-29); Chloride 101 mmol/L (96-108); Creatinine Clr Calc Pharmacy 144.4; Estimated Glomerular Filt Rate > 60; Glucose Random 112 mg/dL (60-115); Potassium 4.5 mmol/L (3.3-5.1); Sodium 138 mmol/L (135-145)
[2022-11-29] MEDS: Lidocaine 4 % Patch ADH..PATCH 1 PATCH TRANSDERMA (09:16)
--- NOTE | 2022-11-29 12:55 | MHC.CM.PN ---
Per MD rounds no discharge today. Patient continue on isolation for TB precautions. DP home self care and family transport.
--- NOTE | 2022-11-29 13:49 | HO.PM.IMPN ---
Subjective Subjective Date of Service: 11/29/22 Interval History: No fever Ongoing cough + dyspnea On HFNC, 40% fiO2 @ 2 Lpm Physical Exam Vital Signs: Vital Signs: Last Vital Signs Temp 98.4 F 11/29/22 12:00 Pulse 76 11/29/22 12:00 Resp 18 11/29/22 12:00 BP 144/72 H 11/29/22 12:00 Pulse Ox 97 11/29/22 12:00 O2 Del Method 11/29/22 12:00 O2 Flow Rate 2 11/29/22 12:00 FiO2 80 11/28/22 04:00 BMI result Body Mass Index 32.3 Const: Other: Gen: in no acute distress HEENT: sclera anicteric, moist mucus membranes, no thrush Neck: supple Lungs: diminished L upper whitehead, rhonchi Heart: regular, tachycardic, no murmurs Abd: soft, non-tender, non-distended Ext: no edema Skin: warm/well-perfused Neuro: alert and oriented x3, no focal findings Psych: appropriate affect Objective Data Active Medications Acetaminophen (Acetaminophen 325 Mg Tablet) 650 mg PO Q6H PRN PRN Reason: Pain, Mild (Pain Scale 1-3) Albuterol/Ipratropium (Albuterol/Iprat 2.5/0.5mg 3 Ml Ampul.Neb) 3 ml INHALE RQ4H WHILE AWAKE PRN PRN Reason: wheezing or shortness of breath Last Admin: 11/28/22 16:33 Dose: 3 ml Documented By: MAURI Bisacodyl (Bisacodyl 5 Mg Tablet.Dr) 5 mg PO BEDTIME [facility] Last Admin: 11/28/22 20:28 Dose: 5 mg Documented By: MOOKIE Buprenorphine/Naloxone (Buprenorphine/Naloxone 8/2 Mg Film) 1 film BUCCAL BEDTIME [facility] Last Admin: 11/28/22 20:28 Dose: 1 film Documented By: MOOKIE Buprenorphine/Naloxone (Buprenorphine/Naloxone 4/1 Mg Film) 1 film SUBLINGUAL 0600,1000,1400,1800 [facility] Last Admin: 11/29/22 09:15 Dose: 1 film Documented By: WILBERT Buprenorphine/Naloxone (Buprenorphine/Naloxone 2/0.5mg Film) 1 film SUBLINGUAL 0600,1000,1400,1800 [facility] Last Admin: 11/29/22 09:15 Dose: 1 film Documented By: WILBERT Divalproex Sodium (Divalproex Sodium 500 Mg Tablet.Dr) 2,000 mg PO BEDTIME [facility] Last Admin: 11/28/22 20:28 Dose: 2,000 mg Documented By: MOOKIE Docusate Sodium (Docusate Sodium 100 Mg Capsule) 100 mg PO DAILY PRN PRN Reason: Constipation Enoxaparin Sodium (Enoxaparin Sodium 40 Mg/0.4 Ml Syringe) 40 mg SUBCUT Q24H [facility] Last Admin: 11/28/22 18:59 Dose: 40 mg Documented By: NAJEWELS Guaifenesin/Dextromethorphan (Guaifenesin Dm 100/10/5 Ml 5 Ml Syrup) 5 ml PO Q4H PRN PRN Reason: Cough Last Admin: 11/28/22 20:30 Dose: 5 ml Documented By: MOOKIE Lactated Ringer's (Lr) 1,000 mls @ 125 mls/hr IVCONT .Q8H [facility] Last Admin: 11/29/22 09:17 Dose: 125 mls/hr Documented By: WILBERT Ibuprofen (Ibuprofen 800 Mg Tablet) 800 mg PO Q6H PRN PRN Reason: Back Pain Last Admin: 11/28/22 20:29 Dose: 800 mg Documented By: MOOKIE Lidocaine (Lidocaine 4 % Patch Adh..Patch) 1 patch TRANSDERMA DAILY [facility]; Protocol Last Admin: 11/29/22 09:16 Dose: 1 patch Documented By: WILBERT Linezolid (Linezolid 600 Mg Tablet) 600 mg PO Q12H [facility] Last Admin: 11/29/22 02:46 Dose: 600 mg Documented By: MOOKIE Loratadine (Loratadine 10 Mg Tablet) 10 mg PO BEDTIME PRN PRN Reason: Allergy Symptoms Mirtazapine (Mirtazapine 15 Mg Tablet) 45 mg PO BEDTIME [facility] Last Admin: 11/28/22 20:29 Dose: 45 mg Documented By: MOOKIE Morphine Sulfate (Morphine Sulfate 4 Mg/Ml Cartridge) 4 mg IVPUSH Q4H PRN; Protocol PRN Reason: severe pain Last Admin: 11/28/22 04:21 Dose: 4 mg Documented By: RELL Olanzapine (Olanzapine 10 Mg Tablet) 10 mg PO BEDTIME [facility] Last Admin: 11/28/22 20:29 Dose: 10 mg Documented By: MOOKIE Oxycodone HCl (Oxycodone Hcl Immed Release 5 Mg Tablet) 7.5 mg PO Q4H PRN PRN Reason: Pain, Severe (Pain Scale 7-10) Last Admin: 11/28/22 14:48 Dose: 7.5 mg Documented By: CHARLI Pharmacy Consult (Consult Rx Vancomycin Dosing) 1 each MISCELLANE DAILY PRN PRN Reason: Consult order Prazosin HCl (Prazosin Hcl 1 Mg Capsule) 2 mg PO BEDTIME [facility]; Protocol Last Admin: 11/28/22 20:29 Dose: 2 mg Documented By: MOOKIE Sodium Chloride (0.9 % Sodium Chloride Flush 3 Ml Syringe) 3 ml IVFLUSH QSHIFT [facility] Last Admin: 11/29/22 09:26 Dose: Not Given Documented By: WILBERT Non-Admin Reason: IV Running Sodium Chloride (Sodium Chloride 3 % Inhalation 15 Ml Vial.Neb) 15 ml INHALE DAILY [facility] Stop: 11/30/22 09:01 Last Admin: 11/29/22 07:58 Dose: 15 ml Documented By: MAURI Labs 11/29/22 07:55 11/29/22 07:55 Labs: Laboratory Results - last 24 hr 11/28/22 11/28/22 11/29/22 15:53 20:58 07:55 MCV MCH MCHC RDW Plt Count MPV Absolute Nucleated RBC Nucleated RBC % (auto) Anion Gap Estim Creat Clear Calc Estimated GFR POC Glucose 197 H 192 H Random Glucose Calcium Random Vancomycin 5.1 L 11/29/22 11/29/22 07:55 07:55 MCV 86.4 MCH 27.9 MCHC 32.2 RDW 16.4 H Plt Count 174 MPV 10.1 Absolute Nucleated RBC 0.080 H Nucleated RBC % (auto) 0.3 H Anion Gap 14 Estim Creat Clear Calc 144.4 Estimated GFR > 60 POC Glucose Random Glucose 112 Calcium 8.2 L Random Vancomycin Microbiology Microbiology Results: Microbiology 11/28/22 09:33 Gram Stain - Final Sputum - Expectorated Sputum Culture - Preliminary Culture in progress. 11/26/22 16:13 Blood Culture - Preliminary Blood - Venous No growth after 48 hours. 11/26/22 16:13 Blood Culture - Preliminary Blood - Venous No growth after 48 hours. Assessment and Plan (1) Cavitary pneumonia: Status: Acute (2) Sepsis with acute hypoxic respiratory failure: Status: Acute Plan hospital d#4, WBC still high 42yo M with OUD on Suboxone (abstinent of heroin x 2yr), recently incarcerated x8mo, presenting after 2 weeks of worsening cough and dyspnea Admitted for severe sepsis with hypoxia and SIMBA due to PNA, found to have multifocal cavitary PNA # severe sepsis due to multifocal cavitary PNA - broadened antibiotic coverage to vancomycin 11/27-, pip-delano 11/27-, and azithromycin 11/26- - airborne precautions, T-spot, ID + Pulm consultations pending, AFB smear/Cx x3 - Legionella + pneumococcal Ags pending - MRSA swab POSITIVE - HIV Ab/Ag negative - TTE to assess for septic pulmonary emboli # AHRF - on HFNC, wean as tolerated # SIMBA - suspect prerenal vs septic ATN. resolved after fluid resuscitation # OUD - Suboxone # mood disorder - continue valproate, olanzapine, prazosin, mirtazapine # VTE ppx: LMWH # dispo: TBD In my clinical judgment, the patient requires continued inpatient hospitalization for the following reasons: hypoxia requiring HFNC, IV ABX, TB rule-out Time Spent With Patient Time: Total time managing care of this patient today ____ minutes. Quality Stroke Does the patient have a stroke diagnosis?: No VTE Prior VTE?: No VTE Risk Level:: Medical - moderate - high VTE Device Contraindication: Treatment Not Indicated VTE Drug Contraindication: N/A - Med Ordered
--- NOTE | 2022-11-29 15:56 | PC.NURSE ---
pt. came to see pt but didn't want to put on ppe so asked me to get daphney from pt. I gave khoi to and told her to call pt because he had some instructions.
[2022-11-29] MEDS: Enoxaparin Sodium 40 MG/0.4 ML SYRINGE SUBCUT (17:43)
[2022-11-29] MEDS: Albuterol/Iprat 2.5/0.5MG 3 ML AMPUL.NEB INHALE (17:56)
[2022-11-29] MEDS: Divalproex Sodium 500 MG TABLET.DR 2000 MG PO (20:01)
[2022-11-29] MEDS: OLANZapine 10 MG TABLET PO (20:01)
[2022-11-29] MEDS: Mirtazapine 15 MG TABLET 45 MG PO (20:01)
[2022-11-29] MEDS: Buprenorphine/Naloxone 8/2 mg FILM 1 FILM BUCCAL (20:01)
[2022-11-29] MEDS: bisacodyL 5 MG TABLET.DR PO (20:01)
[2022-11-29] MEDS: Prazosin HCL 1 MG CAPSULE 2 MG PO (20:01)
[2022-11-30] VITALS (14 sets, daily range): BP systolic 123–163; BP diastolic 78–104; PULSE 89–129; RESP 18–32; TEMP 36.2–37.7; O2SAT 86–98
--- NOTE | 2022-11-30 | ECG_ITS ---
Test Reason : tachycardia Blood Pressure : / mmHG Vent. Rate : 131 BPM Atrial Rate : 131 BPM P-R Int : 126 ms QRS Dur : 100 ms QT Int : 294 ms P-R-T Axes : 059 068 016 degrees QTc Int : 434 ms Sinus tachycardia Otherwise normal ECG When compared with ECG of 30-NOV-2022 01:37, No significant change was found Referred By: Jerman Escobedo Electronically Signed By:Jeffery Galindo
[2022-11-30 01:56] LABS: ABG Base Excess 4.3 mmol/L; ABG HCO3 31 mmol/L (22-26); ABG pCO2 54 mmHg (32-45); ABG pH 7.36 (7.35-7.45); ABG pO2 70 mmHg (83-108)
[2022-11-30 02:44] LABS: ABG Refer to POC result
[2022-11-30] MEDS: Lactated Ringers 1,000 ML 125 ML IVCONT ×2 (03:03→09:16)
[2022-11-30] MEDS: Metoprolol Tartrate 5 MG/5 ML VIAL IVPUSH (03:03)
[2022-11-30] MEDS: Linezolid 600 MG TABLET PO ×2 (03:08→14:07)
--- NOTE | 2022-11-30 05:09 | PM.EVENT ---
Event Note Date of Service: 11/30/22 Event Note: Was called by nurse that pt with dyspnea. Obtained Chest xray which was concerning for apical pneumothorax. Will consult pulm for further recommendations. Time Spent With Patient Time: Total time managing care of this patient today ____ minutes.
[2022-11-30] MEDS: Buprenorphine/Naloxone 2/0.5mg FILM 1 FILM SUBLINGUAL (06:27)
[2022-11-30] MEDS: Buprenorphine/Naloxone 4/1 mg FILM 1 FILM SUBLINGUAL (06:27)
[2022-11-30] MEDS: Sodium Chloride 3 % Inhalation 15 ML VIAL.NEB INHALE (08:53)
[2022-11-30 10:22] LABS: Glucose, Whole Blood 155 mg/dL (60-115)
[2022-11-30] MEDS: oxyCODONE HCl Immed Release 5 MG TABLET 7.5 MG PO (11:00)
--- NOTE | 2022-11-30 11:47 | PC.NURSE ---
pt off the unit to ct scan
--- NOTE | 2022-11-30 13:26 | HO.PM.IMPN ---
Subjective Subjective Date of Service: 11/30/22 Interval History: remains hypoxic with respiratory diffuclty at times CXR overnight showed worsening infiltrates Physical Exam Vital Signs: Vital Signs: Last Vital Signs Temp 97.2 F 11/30/22 11:48 Pulse 113 H 11/30/22 11:48 Resp 18 11/30/22 11:48 BP 123/78 11/30/22 11:48 Pulse Ox 98 11/30/22 11:48 O2 Del Method 11/30/22 11:48 O2 Flow Rate 5 11/30/22 11:48 FiO2 80 11/28/22 04:00 BMI result Body Mass Index 32.3 Const: Other: Gen: in no acute distress HEENT: sclera anicteric, moist mucus membranes, no thrush Neck: supple Lungs: diminished L upper whitehead, rhonchi Heart: regular, tachycardic, no murmurs Abd: soft, non-tender, non-distended Ext: no edema Skin: warm/well-perfused Neuro: alert and oriented x3, no focal findings Psych: appropriate affect Objective Data Active Medications Acetaminophen (Acetaminophen 325 Mg Tablet) 650 mg PO Q6H PRN PRN Reason: Pain, Mild (Pain Scale 1-3) Albuterol/Ipratropium (Albuterol/Iprat 2.5/0.5mg 3 Ml Ampul.Neb) 3 ml INHALE RQ4H WHILE AWAKE PRN PRN Reason: wheezing or shortness of breath Last Admin: 11/29/22 17:56 Dose: 3 ml Documented By: MAURI Bisacodyl (Bisacodyl 5 Mg Tablet.Dr) 5 mg PO BEDTIME [facility] Last Admin: 11/29/22 20:01 Dose: 5 mg Documented By: CAITIE Buprenorphine/Naloxone (Buprenorphine/Naloxone 8/2 Mg Film) 1 film BUCCAL BEDTIME [facility] Last Admin: 11/29/22 20:01 Dose: 1 film Documented By: CAITIE Buprenorphine/Naloxone (Buprenorphine/Naloxone 4/1 Mg Film) 1 film SUBLINGUAL 0600,1000,1400,1800 [facility] Last Admin: 11/30/22 09:15 Dose: Not Given Documented By: WILBERT Non-Admin Reason: Patient Refused Buprenorphine/Naloxone (Buprenorphine/Naloxone 2/0.5mg Film) 1 film SUBLINGUAL 0600,1000,1400,1800 [facility] Last Admin: 11/30/22 09:15 Dose: Not Given Documented By: WILBERT Non-Admin Reason: Patient Refused Divalproex Sodium (Divalproex Sodium 500 Mg Tablet.) 2,000 mg PO BEDTIME [facility] Last Admin: 11/29/22 20:01 Dose: 2,000 mg Documented By: CAITIE Docusate Sodium (Docusate Sodium 100 Mg Capsule) 100 mg PO DAILY PRN PRN Reason: Constipation Enoxaparin Sodium (Enoxaparin Sodium 40 Mg/0.4 Ml Syringe) 40 mg SUBCUT Q24H [facility] Last Admin: 11/29/22 17:43 Dose: 40 mg Documented By: WILBERT Guaifenesin/Dextromethorphan (Guaifenesin Dm 100/10/5 Ml 5 Ml Syrup) 5 ml PO Q4H PRN PRN Reason: Cough Last Admin: 11/28/22 20:30 Dose: 5 ml Documented By: MOOKIE Ibuprofen (Ibuprofen 800 Mg Tablet) 800 mg PO Q6H PRN PRN Reason: Back Pain Last Admin: 11/28/22 20:29 Dose: 800 mg Documented By: MOOKIE Lidocaine (Lidocaine 4 % Patch Adh..Patch) 1 patch TRANSDERMA DAILY [facility]; Protocol Last Admin: 11/30/22 09:14 Dose: Not Given Documented By: WILBERT Non-Admin Reason: Patient Refused Linezolid (Linezolid 600 Mg Tablet) 600 mg PO Q12H [facility] Last Admin: 11/30/22 03:08 Dose: 600 mg Documented By: PIPPA Loratadine (Loratadine 10 Mg Tablet) 10 mg PO BEDTIME PRN PRN Reason: Allergy Symptoms Mirtazapine (Mirtazapine 15 Mg Tablet) 45 mg PO BEDTIME [facility] Last Admin: 11/29/22 20:01 Dose: 45 mg Documented By: CAITIE Morphine Sulfate (Morphine Sulfate 4 Mg/Ml Cartridge) 4 mg IVPUSH Q4H PRN; Protocol PRN Reason: severe pain Last Admin: 11/28/22 04:21 Dose: 4 mg Documented By: RELL Olanzapine (Olanzapine 10 Mg Tablet) 10 mg PO BEDTIME [facility] Last Admin: 11/29/22 20:01 Dose: 10 mg Documented By: CAITIE Oxycodone HCl (Oxycodone Hcl Immed Release 5 Mg Tablet) 7.5 mg PO Q4H PRN PRN Reason: Pain, Severe (Pain Scale 7-10) Last Admin: 11/30/22 11:00 Dose: 7.5 mg Documented By: CHARLI Pharmacy Consult (Consult Rx Vancomycin Dosing) 1 each MISCELLANE DAILY PRN PRN Reason: Consult order Prazosin HCl (Prazosin Hcl 1 Mg Capsule) 2 mg PO BEDTIME [facility]; Protocol Last Admin: 11/29/22 20:01 Dose: 2 mg Documented By: CAITIE Sodium Chloride (0.9 % Sodium Chloride Flush 3 Ml Syringe) 3 ml IVFLUSH QSHI Last Admin: 11/30/22 09:15 Dose: Not Given Documented By: WILBERT Non-Admin Reason: IV Running Labs 11/29/22 07:55 11/29/22 07:55 Labs: Laboratory Results - last 24 hr 11/30/22 11/30/22 01:48 09:49 O2 Saturation 93.0 ABG pH at Pt Temp 7.36 ABG pCO2 at Pt Temp 54 H ABG pO2 at Pt Temp 70 L ABG HCO3 31 H ABG Base Excess (Actual) 4.3 POC Glucose 155 H Microbiology Microbiology Results: Microbiology 11/28/22 09:33 Gram Stain - Final Sputum - Expectorated Sputum Culture - Final Streptococcus pyogenes (Grp A) Yeast Assessment and Plan (1) Cavitary pneumonia: Status: Acute (2) Sepsis with acute hypoxic respiratory failure: Status: Acute Plan 42yo M with OUD on Suboxone (abstinent of heroin x 2yr), recently incarcerated x8mo, presenting after 2 weeks of worsening cough and dyspnea Admitted for severe sepsis with hypoxia and SIMBA due to PNA, found to have multifocal cavitary PNA # severe sepsis due to multifocal cavitary PNA - on vancomycin 11/27-, pip-delano 11/27-, and azithromycin 11/26- - airborne precautions, T-spot, ID + Pulm following, AFB smear/Cx x3 - Legionella + pneumococcal Ags pending - MRSA swab POSITIVE - HIV Ab/Ag negative - TTE no vegetation -repeat CXR today showed worsening -CT chest pending -CT surgery consult # AHRF - on HFNC, wean as tolerated # SIMBA - suspect prerenal vs septic ATN. resolved after fluid resuscitation # OUD - Suboxone # mood disorder - continue valproate, olanzapine, prazosin, mirtazapine # VTE ppx: LMWH # dispo: TBD In my clinical judgment, the patient requires continued inpatient hospitalization for the following reasons: hypoxia requiring HFNC, IV ABX, TB rule-out Time Spent With Patient Time: Total time managing care of this patient today ____ minutes. Quality Stroke Does the patient have a stroke diagnosis?: No VTE Prior VTE?: No VTE Risk Level:: Medical - moderate - high VTE Device Contraindication: Treatment Not Indicated VTE Drug Contraindication: N/A - Med Ordered
--- NOTE | 2022-11-30 14:11 | MHC.CM.PN ---
Per MD rounds no discharge today. Patient sent for CT. Pulmonary MD consulted. Patient remains on TB Isolation. DP Depending on the patients recovery and confirmation of diagnosis. LTAC vs STR VS home. BLS if transfer to facility.
--- NOTE | 2022-11-30 16:52 | PM.IDPN ---
Subjective Subjective Date of Service: 11/30/22 Critical Care Time (minutes): 15 Comment: He has worsening shortness of breath today He has been on linezolid for presumed MRSA pneumonia cause of cavities Objective Data Labs 11/29/22 07:55 11/29/22 07:55 Labs: Laboratory Results - last 24 hr 11/30/22 11/30/22 01:48 09:49 O2 Saturation 93.0 ABG pH at Pt Temp 7.36 ABG pCO2 at Pt Temp 54 H ABG pO2 at Pt Temp 70 L ABG HCO3 31 H ABG Base Excess (Actual) 4.3 POC Glucose 155 H Microbiology Microbiology Results: Microbiology 11/28/22 09:33 Sputum - Expectorated Gram Stain - Final 11/28/22 09:33 Sputum - Expectorated Sputum Culture - Final Streptococcus pyogenes (Grp A) Yeast 11/26/22 16:13 Blood - Venous Blood Culture - Preliminary No growth after 48 hours. 11/26/22 16:13 Blood - Venous Blood Culture - Preliminary No growth after 48 hours. Physical Exam Vital Signs: Vital Signs: Last Vital Signs Temp 97.2 F 11/30/22 11:48 Pulse 62 11/30/22 15:25 Resp 20 11/30/22 15:25 BP 132/90 H 11/30/22 15:25 Pulse Ox 95 11/30/22 15:25 O2 Del Method 11/30/22 15:25 O2 Flow Rate 7 11/30/22 15:25 FiO2 80 11/28/22 04:00 BMI result Body Mass Index 32.3 Resp: Effort & Inspection: respiratory distress Cardio: Rate: regular rate Rhythm: regular rhythm GI: Inspection: Yes normal to inspection Assessment and Plan Assessment and plan (1) Cavitary pneumonia: Problem details: possible AFB or fungus not responding to treatment for MRSA pneumonia Group A strep and galilea sputum Status: Acute (2) Sepsis with acute hypoxic respiratory failure: Status: Acute Plan Would consider Voriconazole Vancomycin Zosyn levaquin stop linezolid bronch check AFB ,legionella,PJP,routine cultures,fungus Time Spent With Patient Time: Total time managing care of this patient today ____ minutes.
[2022-11-30] MEDS: fentaNYL citrate/PF 100 MCG/2 ML VIAL IVPUSH ×2 (17:35→17:54)
[2022-11-30 17:47] LABS: INTERNATIONAL NORM RATIO 1.3 (0.9-1.1); Prothrombin Time 15.4 SEC (10.0-13.1)
[2022-11-30 18:18] LABS: Strep Pneumo Ag urine Not Detected (Not Detected)
--- NOTE | 2022-11-30 18:20 | P.PNCC_ITS ---
Critical Care Event Note Summary Date of Service: 11/30/22 Code activated: No Narrative: Patient with cavitary streptococcal pneumonia with progressive deteriorating clinical status transferred to intensive care unit for close monitoring. On arrival in significant respiratory distress with large left-sided pleural effusion requiring placement of large-bore chest tube with drainage of approximately 2.5 L of straw-colored fluid with improvement in oxygenation th ereafter. Critical Care Time (minutes): 0
--- NOTE | 2022-11-30 18:21 | W.PM.CCHP ---
Procedures Date of Service Date of Service: 11/30/22 Chest Tube Chest Tube 1: Progress: Patient with rapidly worsening hypoxemia and large left-sided pleural effusion with essentially complete left hemithorax opacification. Emergent left-sided 28 [place] Seldinger technique chest tube placed under ultrasound localalization with immediate drainage of approximately 2.5 L of straw-colored fluid and improvement in oxygenation. Sample sent for testing. X-ray for chest tube position is pending.
[2022-11-30 19:13] LABS: MN% 4.6 %; PMN% 95.4 %; RBC Pleural Fluid 0.003 X10*3/uL; WBC Pleural Fluid 3.191 X10*3/uL
[2022-11-30 19:35] LABS: Albumin Level 2.2 g/dL (3.5-5.0); Lactate Dehydrogenase 400 U/L (118-273); Total Protein 6.5 g/dL (6.5-8.0)
[2022-11-30 19:41] LABS: BF Shift QC OK YES; Monocytes Pleural Fluid 4 %; Neutrophils Pleural Fluid 96 %
[2022-11-30] MEDS: Prazosin HCL 1 MG CAPSULE 2 MG PO (21:35)
[2022-11-30] MEDS: Mirtazapine 15 MG TABLET 45 MG PO (21:35)
[2022-11-30] MEDS: bisacodyL 5 MG TABLET.DR PO (21:35)
[2022-11-30] MEDS: Divalproex Sodium 500 MG TABLET.DR 2000 MG PO (21:36)
[2022-11-30] MEDS: OLANZapine 10 MG TABLET PO (21:36)
[2022-11-30 22:34] LABS: Albumin Pleural Fluid 1.8 GM/DL
[2022-12-01] VITALS (15 sets, daily range): BP systolic 120–152; BP diastolic 70–92; PULSE 108–121; RESP 13–26; TEMP 36.6–36.9; O2SAT 89–98
[2022-12-01] MEDS: 0.9 % Sodium Chloride Flush 3 ML SYRINGE IVFLUSH ×4 (00:36→23:33)
[2022-12-01] MEDS: Linezolid 600 MG TABLET PO (02:19)
[2022-12-01 05:07] LABS: VBG Base Excess 9.1 mmol/L; VBG HCO3 33 mmol/L (22-26); VBG pCO2 43 mmHg; VBG pH 7.49 (7.32-7.43); VBG pO2 60 mmHg
[2022-12-01 05:11] LABS: Venous Blood Gas Refer to POC result
[2022-12-01 05:44] LABS: INTERNATIONAL NORM RATIO 1.4 (0.9-1.1)
[2022-12-01 05:46] LABS: Hematocrit 32.4 % (42.0-52.0); Hemoglobin 10.6 g/dl (14.0-18.0); Mean Corpuscular HGB Conc 32.7 g/dl (31.0-36.0); Mean Corpuscular Hemoglobin 27.9 pg (27.0-33.0); Mean Corpuscular Volume 85.3 fL (80.0-98.0); Mean Platelet Volume 10.3 fL (9.4-12.4); NRBC Pct Auto 0.1 /100WBC (0.0-0.2); Platelet Count 114 X10*3/uL (160-400); Red Cell Distribution Width 16.3 % (11.0-16.0); WBC ABN SCTR FOR CBC 1
[2022-12-01 05:59] LABS: Alanine Aminotransferase 8 U/L (0-40); Albumin Level 1.9 g/dL (3.5-5.0); Alkaline Phosphatase 83 U/L (39-117); Anion Gap 12 (12-20); Aspartate Amino Transferase 22 U/L (5-37); Blood Urea Nitrogen 19 mg/dL (9-16); Carbon Dioxide 29 mmol/L (22-29); Chloride 99 mmol/L (96-108); Creatinine Clr Calc Pharmacy 182.1; Estimated Glomerular Filt Rate > 60; Glucose Random 113 mg/dL (60-115); Magnesium 2.2 mg/dL (1.6-2.6); Phosphorus 3.5 mg/dL (2.7-4.5); Potassium 5.1 mmol/L (3.3-5.1); Sodium 135 mmol/L (135-145); Total Protein 6.1 g/dL (6.5-8.0)
[2022-12-01 06:15] LABS: Atypical Lymph Absolute Manual 0.3 x10*3/uL; Atypical Lymphs Percent Manual 1 % (0-6); Band Neutrophils Percent 10 % (3-5); Lymphocytes Absolute Manual 2.2 X10*3/uL (1.2-4.9); Lymphocytes Percent Manual 8 % (20-40); Monocytes Absolute Manual 1.4 X10*3/uL (0.1-1.2); Monocytes Percent Manual 5 % (2-11); Myelocytes Absolute 0.8 X10*/uL; Myelocytes Percent 3 %; Neutrophils Percent Manual 72 % (45-73); Promyelocytes Absolute 0.3 X10*3/uL; Promyelocytes Percent 1 %
[2022-12-01 06:16] LABS: Macrocytosis 1+ (5-14) /OIF; Platelet Estimate SLIGHTLY DECREASED (NORMAL); Platelet Morphology Comment NORMAL; Polychromasia 1+ (0-2) /OIF; RBC Morphology NOTED; Smudge Cells PRESENT; Target Cells 1+ (5-14) /OIF; Toxic Vacuolation PRESENT
[2022-12-01 08:33] LABS: TS Negative Control Passed; TS Panel A 0; TS Panel B 0; TS Positive Control Passed; TSpotTB Negative (Negative)
[2022-12-01 08:41] LABS: Amylase Pleural Fluid 16
[2022-12-01 08:42] LABS: Glucose Pleural Fluid 69
[2022-12-01 08:43] LABS: LDH Pleural Fluid 1267; Total Protein Pleural Fluid 4.3
--- NOTE | 2022-12-01 09:23 | PM.CNGS ---
History of Present Illness Consult details Consult date: 12/01/22 Reason for consult: other (cavitary lung lesions) Narrative: Mr. Wilkins is a 42 year old male who initially presented to the [facility] on 11/26/22 with a 2 week history of shortness and cough for about 2 weeks. His symptoms progressed and he also developed left sided pleuritic chest pain, as well as poor PO intake, prompting his evaluation in the ER. Workup at that time revealed a leukocytosis of 43, Cr 2.8, and a lactic acid of 3.1. CXR showed left upper lobe consolidation and CT chest showed a cavitary left upper lobe pulmonary mass with surrounding groundglass opacity. There were also several other additional pulmonary nodules bilaterally, L>R, many of which with central cavitation. The patient has been admitted to the medical service since and treated for CAP/sepsis. Apparently the patient also had had a recent incarceration raising suspicous for TB infection. ID has seen the patient and continues to follow. Yesterday patient had some increased respiratory distress and hypoxia. CT chest repeated that showed a new large left hydropneumothorax. Patient since had been transferred to the ICU and Dr. Mcdowell placed a 28Fr chest tube with a return of 2.5L - pleural fluid samples sent. Respiratory status improved following drainage. Review of Systems Constitutional: Constitutional: Denies chills, Denies fever(s) and Denies headache(s) Eyes: Eyes: Denies loss of vision ENT: Denies headache(s) and Denies neck pain Cardiovascular: Cardiovascular: Denies lightheadedness, Denies dyspnea and Reports dyspnea on exertion Respiratory: Respiratory: Reports chest congestion, Reports cough, Denies hemoptysis, Denies pain with cough, Denies dyspnea, Reports dyspnea on exertion and Denies wheezing Gastrointestinal: Gastrointestinal: Denies abdominal pain, Denies nausea and Denies vomiting Genitourinary: Genitourinary: Reports other (Marcum in place) Musculoskeletal: Musculoskeletal: Denies neck pain Integumentary/Breasts: Skin/Breast: Denies rash Neurologic: Denies headache(s) and Denies loss of vision Allergic/Immunologic: Allergic/Immunologic: Denies wheezing PMFSH Past Medical History Medical History (Updated 12/02/22 @ 15:15 by ANURAG Grover) Anxiety Bipolar 1 disorder Cavitary pneumonia PTSD (post-traumatic stress disorder) Substance use disorder Family History Family history: reviewed and not pertinent Social History Social History Household Members: Spouse and None Housing: House Unable to assess alcohol history related to: Unknown Alcohol intake: never Patient Tobacco Use Status: Former Tobacco user Smoked in Last 30 Days: Yes Patient Interested in Nicotine Replacement: No Use of substances other than those prescribed or required for medical reasons: Yes Substance Use Type: Other Currently Displaying Signs/Symptoms of Drug Intoxication Withdrawal: No Any prior treatment program specific to substance use: No Have you been hit, kicked, punched, or otherwise hurt by someone within the past year? If so, by whom?: No Do you feel safe in your current relationship?: Yes Is there a partner from a previous relationship who is making you feel unsafe now?: No Are you made to feel afraid or neglected: No Advance Directives: No Nutrition Risks: No Nutritional Risk service: No Current occupational status: disabled Meds Allergies Allergy/AdvReac Type Severity Reaction Status Date / Time quetiapine [From Seroquel] Allergy Chest Pain Verified 11/26/22 17:13 Active Medications: Current Medications Acetaminophen (Acetaminophen 325 Mg Tablet) 650 mg PO Q6H PRN PRN Reason: Pain, Mild (Pain Scale 1-3) Albuterol/Ipratropium (Albuterol/Iprat 2.5/0.5mg 3 Ml Ampul.Neb) 3 ml INHALE RQ4H WHILE AWAKE PRN PRN Reason: wheezing or shortness of breath Last Admin: 11/29/22 17:56 Dose: 3 ml Bisacodyl (Bisacodyl 5 Mg Tablet.) 5 mg PO BEDTIME [facility] Last Admin: 11/30/22 21:35 Dose: 5 mg Buprenorphine/Naloxone (Buprenorphine/Naloxone 2/0.5mg Film) 1 film SUBLINGUAL DAILY [facility] Last Admin: 12/01/22 08:03 Dose: Not Given Divalproex Sodium (Divalproex Sodium 500 Mg Tablet.) 2,000 mg PO BEDTIME [facility] Last Admin: 11/30/22 21:36 Dose: 2,000 mg Docusate Sodium (Docusate Sodium 100 Mg Capsule) 100 mg PO DAILY PRN PRN Reason: Constipation Enoxaparin Sodium (Enoxaparin Sodium 40 Mg/0.4 Ml Syringe) 40 mg SUBCUT Q24H MAHENDRA Last Admin: 11/30/22 18:38 Dose: Not Given Fentanyl (Fentanyl Citrate/Pf 100 Mcg/2 Ml Vial) 100 mcg IVPUSH Q2H PRN; Protocol PRN Reason: Pain, Moderate (Pain Scale 4-6 Guaifenesin/Dextromethorphan (Guaifenesin Dm 100/10/5 Ml 5 Ml Syrup) 5 ml PO Q4H PRN PRN Reason: Cough Last Admin: 11/28/22 20:30 Dose: 5 ml Piperacillin Sod/Tazobactam (Sod 4.5 gm/ Sodium Chloride) 100 mls @ 200 mls/hr IV Q6H MAHENDRA Vancomycin HCl (Vancomycin/Ns) 2,000 mg in 520 mls @ 260 mls/hr IV ONCE ONE Stop: 12/01/22 11:59 Ibuprofen (Ibuprofen 800 Mg Tablet) 800 mg PO Q6H PRN PRN Reason: Back Pain Last Admin: 11/28/22 20:29 Dose: 800 mg Lidocaine (Lidocaine 4 % Patch Adh..Patch) 1 patch TRANSDERMA DAILY [facility]; Protocol Last Admin: 12/01/22 08:16 Dose: Not Given Loratadine (Loratadine 10 Mg Tablet) 10 mg PO BEDTIME PRN PRN Reason: Allergy Symptoms Mirtazapine (Mirtazapine 15 Mg Tablet) 45 mg PO BEDTIME MAHENDRA Last Admin: 11/30/22 21:35 Dose: 45 mg Morphine Sulfate (Morphine Sulfate 4 Mg/Ml Cartridge) 4 mg IVPUSH Q4H PRN; Protocol PRN Reason: severe pain Last Admin: 11/28/22 04:21 Dose: 4 mg Olanzapine (Olanzapine 10 Mg Tablet) 10 mg PO BEDTIME MAHENDRA Last Admin: 11/30/22 21:36 Dose: 10 mg Oxycodone HCl (Oxycodone Hcl Immed Release 5 Mg Tablet) 7.5 mg PO Q4H PRN PRN Reason: Pain, Severe (Pain Scale 7-10) Last Admin: 11/30/22 11:00 Dose: 7.5 mg Pharmacy Consult (Consult Rx Vancomycin Dosing) 1 each MISCELLANE DAILY PRN PRN Reason: Consult order Prazosin HCl (Prazosin Hcl 1 Mg Capsule) 2 mg PO BEDTIME MAHENDRA; Protocol Last Admin: 11/30/22 21:35 Dose: 2 mg Sodium Chloride (0.9 % Sodium Chloride Flush 3 Ml Syringe) 3 ml IVFLUSH QSHIFT [facility] Last Admin: 12/01/22 07:47 Dose: 3 ml Home Medications Medication Instructions Recorded Confirmed Last Taken Type bisacodyl 5 mg tablet,delayed 5 mg PO BEDTIME 11/26/22 11/26/22 11/25/22 History release buprenorphine 12 mg-naloxone 3 mg 0.5 film buccal TID@0600,1000,1400 11/26/22 11/26/22 11/26/22 History sublingual film (Suboxone) buprenorphine 12 mg-naloxone 3 mg 0.5 strip sublingual DAILY@1800 11/26/22 11/26/22 11/25/22 History sublingual film (Suboxone) buprenorphine 8 mg-naloxone 2 mg 1 film buccal BEDTIME 11/26/22 11/26/22 11/25/22 History sublingual film (Suboxone) cetirizine 10 mg tablet 10 mg PO BEDTIME PRN Allergy 11/26/22 11/26/22 11/25/22 History Symptoms divalproex 500 mg tablet,delayed 4 tab PO BEDTIME 11/26/22 11/26/22 11/25/22 History release docusate sodium 100 mg capsule 100 mg PO BEDTIME 11/26/22 11/26/22 11/25/22 History ibuprofen 800 mg tablet 800 mg PO Q6H PRN Back Pain 11/26/22 11/26/22 11/25/22 History mirtazapine 45 mg tablet 1 tab PO BEDTIME 11/26/22 11/26/22 11/25/22 History olanzapine 5 mg tablet 2 tab PO BEDTIME 11/26/22 11/26/22 11/25/22 History prazosin 2 mg capsule 2 mg PO BEDTIME 11/26/22 11/26/22 11/25/22 History Physical Exam Vital Signs: Vital Signs: Last Vital Signs Temp 98.4 F 11/30/22 21:00 Pulse 118 H 12/01/22 09:00 Resp 17 12/01/22 09:00 BP 129/74 12/01/22 09:00 Pulse Ox 94 12/01/22 09:00 O2 Del Method 12/01/22 09:00 O2 Flow Rate 9 12/01/22 09:00 FiO2 80 11/28/22 04:00 BMI result Body Mass Index 32.3 General: No acute distress, resting comfortably in bed. Pale and somewhat diaphoretic. Slow to respond to questions, slow movements in general. Head: Normocephalic, atraumatic, symmetric Eyes: Sclera anicteric, eyelids without edema or erythema, +EOMS ENT: Oral mucosa and tongue are moist without lesions or exudates Neck: Soft, supple, symmetric, trachea midline, no crepitus Cardiovascular: Regular rate and rhythm, no murmur/rubs/gallops, BUE and BLE without edema, no calf tenderness bilaterally Respiratory: Decreased BS throughout left chest, right CTA (anterior lung whitehead examined only due to positioning), breathing nonlabored, on oxygen via face mask. No use of accessory muscles. Left chest tube x 1 to [facility] on -20 suction, cloudy serous drainage, no air leak. Gastrointestinal: Soft, non-tender, non-distended, +normoactive bowel sounds. Skin: Warm and dry throughout, no rashes Neurological: No focal neurological deficit, overall slow to respond Psychiatric: No agitation, flat affect Results Labs 12/01/22 05:02 12/01/22 05:02 Labs: Abnormal lab results 11/30/22 11/30/22 11/30/22 Range/Units 09:49 16:45 16:45 WBC (4.8-10.8) X10*3/uL RBC (4.60-5.80) X10*6/uL Hgb (14.0-18.0) g/dl Hct (42.0-52.0) % RDW (11.0-16.0) % Plt Count (160-400) X10*3/uL Absolute Nucleated RBC (0.0-0.012) X10*3/uL Band Neutrophils % (3-5) % Lymphocytes % (Manual) (20-40) % Abs Neuts (Manual) (2.0-8.3) X10*3/uL Monocytes # (Manual) (0.1-1.2) X10*3/uL PT 15.4 H (10.0-13.1) SEC INR 1.3 H (0.9-1.1) VBG pH (7.32-7.43) VBG HCO3 (22-26) mmol/L BUN (9-16) mg/dL POC Glucose 155 H (60-115) mg/dL Calcium (8.4-10.2) mg/dL Lactate Dehydrogenase 400 H (118-273) U/L Total Protein (6.5-8.0) g/dL Albumin 2.2 L (3.5-5.0) g/dL 12/01/22 12/01/22 12/01/22 Range/Units 04:59 05:02 05:02 WBC 28.0 H (4.8-10.8) X10*3/uL RBC 3.80 L (4.60-5.80) X10*6/uL Hgb 10.6 L (14.0-18.0) g/dl Hct 32.4 L (42.0-52.0) % RDW 16.3 H (11.0-16.0) % Plt Count 114 L D (160-400) X10*3/uL Absolute Nucleated RBC 0.040 H (0.0-0.012) X10*3/uL Band Neutrophils % 10 H (3-5) % Lymphocytes % (Manual) 8 L (20-40) % Abs Neuts (Manual) 23.0 H (2.0-8.3) X10*3/uL Monocytes # (Manual) 1.4 H (0.1-1.2) X10*3/uL PT 16.0 H (10.0-13.1) SEC INR 1.4 H (0.9-1.1) VBG pH 7.49 H (7.32-7.43) VBG HCO3 33 H (22-26) mmol/L BUN (9-16) mg/dL POC Glucose (60-115) mg/dL Calcium (8.4-10.2) mg/dL Lactate Dehydrogenase (118-273) U/L Total Protein (6.5-8.0) g/dL Albumin (3.5-5.0) g/dL 12/01/22 Range/Units 05:02 WBC (4.8-10.8) X10*3/uL RBC (4.60-5.80) X10*6/uL Hgb (14.0-18.0) g/dl Hct (42.0-52.0) % RDW (11.0-16.0) % Plt Count (160-400) X10*3/uL Absolute Nucleated RBC (0.0-0.012) X10*3/uL Band Neutrophils % (3-5) % Lymphocytes % (Manual) (20-40) % Abs Neuts (Manual) (2.0-8.3) X10*3/uL Monocytes # (Manual) (0.1-1.2) X10*3/uL PT (10.0-13.1) SEC INR (0.9-1.1) VBG pH (7.32-7.43) VBG HCO3 (22-26) mmol/L BUN 19 H (9-16) mg/dL POC Glucose (60-115) mg/dL Calcium 8.0 L (8.4-10.2) mg/dL Lactate Dehydrogenase (118-273) U/L Total Protein 6.1 L (6.5-8.0) g/dL Albumin 1.9 L (3.5-5.0) g/dL Short CBC 12/01/22 Range/Units 05:02 WBC 28.0 H (4.8-10.8) X10*3/uL Hgb 10.6 L (14.0-18.0) g/dl Hct 32.4 L (42.0-52.0) % Plt Count 114 L D (160-400) X10*3/uL BMP 12/01/22 05:02 Sodium 135 Potassium 5.1 Chloride 99 Carbon Dioxide 29 BUN 19 H Creatinine 0.69 Calcium 8.0 L Liver Function 11/30/22 12/01/22 Range/Units 16:45 05:02 Total Bilirubin 1.0 (0.0-1.0) mg/dL AST 22 (5-37) U/L ALT 8 (0-40) U/L Alkaline Phosphatase 83 (39-117) U/L Albumin 2.2 L 1.9 L (3.5-5.0) g/dL Urine 11/26/22 11/27/22 Range/Units 20:30 08:50 Urine Color Dark Yellow Dark Yellow Urine Appearance Cloudy Cloudy Urine pH 5.0 5.0 (5.0-9.0) Ur Specific [place] 1.025 1.020 (1.005-1.025) Urine Protein 30 (1+) H 30 (1+) H (Neg-Trace) mg/dL Urine Glucose (UA) Negative Negative (Negative) mg/dL All other labs normal. Microbiology 11/30/22 18:30 Pleural Fluid Gram Stain - Final 11/30/22 18:30 Pleural Fluid Routine Culture - Preliminary No growth to date. 11/30/22 18:30 Pleural Fluid Anaerobic Culture - Preliminary No growth to date. 11/28/22 09:33 Sputum - Expectorated Gram Stain - Final 11/28/22 09:33 Sputum - Expectorated Sputum Culture - Final Streptococcus pyogenes (Grp A) Yeast 11/26/22 16:13 Blood - Venous Blood Culture - Preliminary No growth after 48 hours. 11/26/22 16:13 Blood - Venous Blood Culture - Preliminary No growth after 48 hours. Name: Tony Wilkins Age/Sex: 42/M : 1980 Unit#: [id number] Attend Dr: Javier Mcdowell MD Re11/26/22 Status: ADM IN Location: .ICU 254-1 Disch: Specimen: [id number] Collected: 11/30/22 Status: RES Req#: [id number] Received: 11/30/22 Source: Pleural Fl Sp Desc: Subm Dr: Javier Mcdowell MD Ordered: Anaerobic Cult, Routine Cult GS Procedure Result Verified Site Gram stain Final 12/01/22 Gram stain results: 2+ polys No organisms seen Routine Culture Preliminary 12/01/22 No growth to date. Anaerobic Culture Preliminary 12/01/2250 No growth to date. ITS Impressions Chest X-Ray 11/26/22 15:05 IMPRESSION: Left upper lobe consolidation/infiltrate. Chest CT 11/26/22 19:08 IMPRESSION: An approximately 6.8 cm centrally cavitating left upper lobe pulmonary mass with surrounding groundglass and crazy paving. Multiple additional solid pulmonary nodules are seen predominantly throughout the left lung, many with central cavitation as well as few scattered areas of groundglass and consolidation. Differential considerations would include both infectious/inflammatory or neoplastic etiology, including pulmonary tuberculosis, or other infectious etiology, including atypical infections and septic emboli, granulomatous etiology, or malignant etiology. Recommend correlation with clinical symptoms and consider further evaluation with bronchoscopy. Small left pleural effusion with trace left pulmonary edema. Fleischner guidelines were followed. The findings and recommendations were discussed with Dr. Beatty by telephone at 11/26/2022 8:33 PM and it was ascertained that the content and urgency of the report was understood at the time of direct communication. Chest X-Ray 11/30/22 02:35 IMPRESSION: Significantly worsened opacification of the left hemithorax, suspected to be due to a combination of pleural effusion and underlying parenchymal opacity. Region of lucency towards the apex raises concern for superimposed pneumothorax, which could be more definitively assessed with CT. This critical result was discussed with Dr. Escobedo on 11/30/2022 3:09 AM, and it was ascertained that the content and urgency of the report was understood at the time of direct communication. Chest CT 11/30/22 12:02 IMPRESSION: 1. Progression in consolidation of the left lung with large hydropneumothorax as well as region of necrotic lung. Bronchoscopy would be of help in better evaluation of the left bronchial system and possible mucous plug as well as possible drainage with chest tube placement to assist in lung re-expansion. 2. Shift of mediastinal structures to the right with developing right lung disease as described. Fleischner guidelines were followed. Chest X-Ray 11/30/22 18:39 IMPRESSION: 1. Left-sided hydropneumothorax with decreased amount of fluid but increased amount of air compared to priors following placement of a chest tube. 2. Stable near complete opacification of the left lung. Chest X-Ray 12/01/22 09:11 IMPRESSION: Left-sided pleural effusion has increased in size. A pneumothorax is most likely still present although not well seen. Imaging Chest x-ray: report reviewed and image reviewed CT scan - chest: report reviewed and image reviewed Assessment and Plan (1) Hydropneumothorax: Status: Acute Mr. Wilkins is a 42 year old male with cavitary pneumonia now with a large left sided hydropneumothoax. TB being ruled out. Left hydropneumothorax and cavitary pneumonia s/p left chest tube placement by Dr. Mcdowell on 11/30/22 Pleural fluid studies indicate an exudative process Pleural fluid gram stain negative. Culture, fungal, AFB pending. Likely parapneumonic effusion with likely endobronchial occlusion component Patient may very likely have some degree of left bronchial occlusion from secretions. CT chest shows possible cutoff of the left upper lobe bronchus and distal left lower lobe bronchus. This can contribute to the lack of reexpansion of the lung following drainage of the pleural effusion overnight. Would consider bronchoscopy - can be both therapeutic and diagnostic. To aide with complete evaluation of the pleural effusion would recommend starting with a dose of chemical fibrinolysis today with alteplase/dornase. Pleural effusion does not appear significantly loculated based on CT chest done yesterday. No urgent need for surgical decortication. Awaiting final TB testing results prior to considering surgical decortication. ID following. Continue antibiotics: currently on Vanco/Zosyn. ID note from yesterday says consider Voriconazole. Case discussed with Dr. Wilkinson. Thank you for the consultation. We will follow along and continue chest tube management. (2) Cavitary pneumonia: Status: Acute Time Spent With Patient Time: Total time managing care of this patient today ____ minutes. Procedures Date of Service Date of Service: 12/01/22
[2022-12-01] MEDS: Piperacillin Sodium/Tazobactam 4.5 GM in 0.9 % Sodium Chloride 100 ML IV ×3 (09:57→20:43)
--- NOTE | 2022-12-01 10:51 | MHC.CM.PN ---
Pt now in ICU receiving care for respiratory impairment: Message left for pt's next of contact, Karen re: pt's probation status (has GPS ankle monitoring device) Will await callback. D/C plan for a return to home with Karen when medically stable.
--- NOTE | 2022-12-01 11:43 | PC.NURSE ---
Pt AAO to self only, confused and vague at times, mostly lethargic. Pt resting in bed with no acute distress. CTube patent and draining serous fluids, MD aware. Pt maintained on 9L oxymask and satting in the mid 90s. IV abx given as ordered. ST 100s-120s on tele. Condom cath in place and draining dark yellow urine. Pt repositioned every 2 hrs and as needed. Plan to downgrade to [facility], patient aware and agreeable. Report given to receiving RN. Pt left the unit in the bed at approximately 1130.
--- NOTE | 2022-12-01 12:04 | HE.PHANOTE ---
Vancomycin Dosing Patient being restart on vancomycin today 12/01. Patient last received a dose of vancomycin on 11/27. Will reload the patient with vancomycin 2000 mg then initiate him on vancomycin 1500 mg Q12H start 12/01 @ 2300. Expected AUC 473 with a trough of 16.4. Level is schedule to be drawn 12/02 @ 2100 prior to 4th dose. Patient renal function has improved since originailly on vancomycin, pharmacy will continue to monitor daily. Whitney Carter, RimaD
--- NOTE | 2022-12-01 12:50 | P.PNCC_ITS ---
Subjective Subjective Date of Service: 12/01/22 Interval History: 42-year-old gentleman with underlying history of bipolar, anxiety, history of incarceration admitted on 11/26/2022 with progressive dyspnea and productive cough. On ER evaluation hypoxia requiring supplemental oxygen with evidence of left-sided cavitary pneumonia. Patient was started on broad-spectrum antibiotics and admitted to telemetry worked. Hospital course significant for progressive hypoxia and complete opacification of left hemithorax on 11/30/2022 requiring transfer to intensive care unit for close monitoring placement of large bore left-sided chest tube with drainage of 2.[address] chest with hydropneumothorax suggestive of loculated pleural effusion. Pleural fluid studies showing exudative eiffusion. Sputum cultures growing Streptococcus. Patient is MRSA positive on nasal swab. Evaluated by infectious disease disease and thoracic surgery with plan for chemical decortication. Critical Care Time (minutes): 0 Physical Exam 2 Vital Signs: Vital Signs: Last Vital Signs Temp 98.5 F 12/01/22 12:00 Pulse 111 H 12/01/22 12:00 Resp 20 12/01/22 12:00 BP 136/71 12/01/22 12:00 Pulse Ox 97 12/01/22 12:00 O2 Del Method 12/01/22 12:00 O2 Flow Rate 9 12/01/22 12:00 FiO2 80 11/28/22 04:00 BMI result Body Mass Index 32.3 Const: General: no acute distress, alert and awake Eyes: Sclerae: sclerae normal EOM: EOMs intact bilaterally Neck: Neck: Yes no lymphadenopathy, Yes trachea midline and Yes supple Resp: Effort & Inspection: normal respiratory effort Auscultation: other (Poor air movement on the left with crackles) Cardio: Rate: tachycardic Rhythm: regular rhythm Heart sounds: no gallops, no murmurs and no rubs GI: Palpation (GI): Soft to palpation and Other GI palpation findings present ( Nontender) Auscultation: normal bowel sounds Extrem: General: Yes no pedal edema, No clubbing and No cyanosis Objective Data Labs 12/01/22 05:02 12/01/22 05:02 Labs: Laboratory Results - last 24 hr 11/26/22 11/29/22 11/30/22 21:36 07:55 16:45 WBC RBC Hgb Hct MCV MCH MCHC RDW Plt Count MPV Immature Gran % (Auto) Neut % (Auto) Lymph % (Auto) [place] % (Auto) Eos % (Auto) Baso % (Auto) Lymph # (Auto) [place] # (Auto) Eos # (Auto) Baso # (Auto) Abs Immat Gran (auto) Absolute Neuts (auto) Absolute Nucleated RBC Nucleated RBC % (auto) Neutrophils % (Manual) Band Neutrophils % Lymphocytes % (Manual) Atypical Lymphs % (Man) Monocytes % (Manual) Myelocytes % Promyelocytes % Abs Neuts (Manual) Lymphocytes # (Manual) Atyp Lymphs # (Manual) Monocytes # (Manual) Myelocytes # Promyelocytes # Smudge Cells Toxic Vacuolation Platelet Estimate Plt Morphology Comment RBC Morphology Polychromasia Macrocytosis Target Cells PT 15.4 H INR 1.3 H VBG pH VBG pCO2 VBG pO2 VBG HCO3 VBG O2 Saturation VBG Base Excess Sodium Potassium Chloride Carbon Dioxide Anion Gap BUN Creatinine Estim Creat Clear Calc Estimated GFR Random Glucose Calcium Phosphorus Magnesium Total Bilirubin AST ALT Alkaline Phosphatase Lactate Dehydrogenase Total Protein Albumin Pleural WBC Pleural RBC Pleural Neutrophils Pleural Monocytes Pleural Total Protein Pleural Albumin Pleural LDH Pleural Glucose Pleural Amylase Ur Strep pneumoniae Ag Not Detected TB Test (T-Spot) Com Negative TB Test Nil Control Passed TB Test Panel A 0 TB Test Panel B 0 TB Test Positive Cntrl Passed 11/30/22 11/30/22 11/30/22 16:45 18:30 18:30 WBC RBC Hgb Hct MCV MCH MCHC RDW Plt Count MPV Immature Gran % (Auto) Neut % (Auto) Lymph % (Auto) [place] % (Auto) Eos % (Auto) Baso % (Auto) Lymph # (Auto) [place] # (Auto) Eos # (Auto) Baso # (Auto) Abs Immat Gran (auto) Absolute Neuts (auto) Absolute Nucleated RBC Nucleated RBC % (auto) Neutrophils % (Manual) Band Neutrophils % Lymphocytes % (Manual) Atypical Lymphs % (Man) Monocytes % (Manual) Myelocytes % Promyelocytes % Abs Neuts (Manual) Lymphocytes # (Manual) Atyp Lymphs # (Manual) Monocytes # (Manual) Myelocytes # Promyelocytes # Smudge Cells Toxic Vacuolation Platelet Estimate Plt Morphology Comment RBC Morphology Polychromasia Macrocytosis Target Cells PT INR VBG pH VBG pCO2 VBG pO2 VBG HCO3 VBG O2 Saturation VBG Base Excess Sodium Potassium Chloride Carbon Dioxide Anion Gap BUN Creatinine Estim Creat Clear Calc Estimated GFR Random Glucose Calcium Phosphorus Magnesium Total Bilirubin AST ALT Alkaline Phosphatase Lactate Dehydrogenase 400 H Total Protein 6.5 Albumin 2.2 L Pleural WBC Pleural RBC Pleural Neutrophils Pleural Monocytes Pleural Total Protein Pleural Albumin 1.8 Pleural LDH Pleural Glucose Pleural Amylase 16 Ur Strep pneumoniae Ag TB Test (T-Spot) Com TB Test Nil Control TB Test Panel A TB Test Panel B TB Test Positive [facility] 11/30/22 11/30/22 11/30/22 18:30 18:30 18:30 WBC RBC Hgb Hct MCV MCH MCHC RDW Plt Count MPV Immature Gran % (Auto) Neut % (Auto) Lymph % (Auto) [place] % (Auto) Eos % (Auto) Baso % (Auto) Lymph # (Auto) [place] # (Auto) Eos # (Auto) Baso # (Auto) Abs Immat Gran (auto) Absolute Neuts (auto) Absolute Nucleated RBC Nucleated RBC % (auto) Neutrophils % (Manual) Band Neutrophils % Lymphocytes % (Manual) Atypical Lymphs % (Man) Monocytes % (Manual) Myelocytes % Promyelocytes % Abs Neuts (Manual) Lymphocytes # (Manual) Atyp Lymphs # (Manual) Monocytes # (Manual) Myelocytes # Promyelocytes # Smudge Cells Toxic Vacuolation Platelet Estimate Plt Morphology Comment RBC Morphology Polychromasia Macrocytosis Target Cells PT INR VBG pH VBG pCO2 VBG pO2 VBG HCO3 VBG O2 Saturation VBG Base Excess Sodium Potassium Chloride Carbon Dioxide Anion Gap BUN Creatinine Estim Creat Clear Calc Estimated GFR Random Glucose Calcium Phosphorus Magnesium Total Bilirubin AST ALT Alkaline Phosphatase Lactate Dehydrogenase Total Protein Albumin Pleural WBC 3.191 Pleural RBC 0.003 Pleural Neutrophils 96 Pleural Monocytes 4 Pleural Total Protein Pleural Albumin Pleural LDH 1267 Pleural Glucose 69 Pleural Amylase Ur Strep pneumoniae Ag TB Test (T-Spot) Com TB Test Nil Control TB Test Panel A TB Test Panel B TB Test Positive [facility] 11/30/22 12/01/22 12/01/22 18:30 04:59 05:02 WBC 28.0 H RBC 3.80 L Hgb 10.6 L Hct 32.4 L MCV 85.3 MCH 27.9 MCHC 32.7 RDW 16.3 H Plt Count 114 L D MPV 10.3 Immature Gran % (Auto) Cancelled Neut % (Auto) Cancelled Lymph % (Auto) Cancelled [place] % (Auto) Cancelled Eos % (Auto) Cancelled Baso % (Auto) Cancelled Lymph # (Auto) Cancelled [place] # (Auto) Cancelled Eos # (Auto) Cancelled Baso # (Auto) Cancelled Abs Immat Gran (auto) Cancelled Absolute Neuts (auto) Cancelled Absolute Nucleated RBC 0.040 H Nucleated RBC % (auto) 0.1 Neutrophils % (Manual) 72 Band Neutrophils % 10 H Lymphocytes % (Manual) 8 L Atypical Lymphs % (Man) 1 Monocytes % (Manual) 5 Myelocytes % 3 Promyelocytes % 1 Abs Neuts (Manual) 23.0 H Lymphocytes # (Manual) 2.2 Atyp Lymphs # (Manual) 0.3 Monocytes # (Manual) 1.4 H Myelocytes # 0.8 Promyelocytes # 0.3 Smudge Cells PRESENT Toxic Vacuolation PRESENT Platelet Estimate SLIGHTLY DECREASED Plt Morphology Comment NORMAL RBC Morphology NOTED Polychromasia 1+ (0-2) Macrocytosis 1+ (5-14) Target Cells 1+ (5-14) PT INR VBG pH 7.49 H VBG pCO2 43 VBG pO2 60 VBG HCO3 33 H VBG O2 Saturation 90.0 VBG Base Excess 9.1 Sodium Potassium Chloride Carbon Dioxide Anion Gap BUN Creatinine Estim Creat Clear Calc Estimated GFR Random Glucose Calcium Phosphorus Magnesium Total Bilirubin AST ALT Alkaline Phosphatase Lactate Dehydrogenase Total Protein Albumin Pleural WBC Pleural RBC Pleural Neutrophils Pleural Monocytes Pleural Total Protein 4.3 Pleural Albumin Pleural LDH Pleural Glucose Pleural Amylase Ur Strep pneumoniae Ag TB Test (T-Spot) Com TB Test Nil Control TB Test Panel A TB Test Panel B [facility] 12[facility] 12/01/22 05:02 05:02 WBC RBC Hgb Hct MCV MCH MCHC RDW Plt Count MPV Immature Gran % (Auto) Neut % (Auto) Lymph % (Auto) [place] % (Auto) Eos % (Auto) Baso % (Auto) Lymph # (Auto) [place] # (Auto) Eos # (Auto) Baso # (Auto) Abs Immat Gran (auto) Absolute Neuts (auto) Absolute Nucleated RBC Nucleated RBC % (auto) Neutrophils % (Manual) Band Neutrophils % Lymphocytes % (Manual) Atypical Lymphs % (Man) Monocytes % (Manual) Myelocytes % Promyelocytes % Abs Neuts (Manual) Lymphocytes # (Manual) Atyp Lymphs # (Manual) Monocytes # (Manual) Myelocytes # Promyelocytes # Smudge Cells Toxic Vacuolation Platelet Estimate Plt Morphology Comment RBC Morphology Polychromasia Macrocytosis Target Cells PT 16.0 H INR 1.4 H VBG pH VBG pCO2 VBG pO2 VBG HCO3 VBG O2 Saturation VBG Base Excess Sodium 135 Potassium 5.1 Chloride 99 Carbon Dioxide 29 Anion Gap 12 BUN 19 H Creatinine 0.69 Estim Creat Clear Calc 182.1 Estimated GFR > 60 Random Glucose 113 Calcium 8.0 L Phosphorus 3.5 Magnesium 2.2 Total Bilirubin 1.0 AST 22 ALT 8 Alkaline Phosphatase 83 Lactate Dehydrogenase Total Protein 6.1 L Albumin 1.9 L Pleural WBC Pleural RBC Pleural Neutrophils Pleural Monocytes Pleural Total Protein Pleural Albumin Pleural LDH Pleural Glucose Pleural Amylase Ur Strep pneumoniae Ag TB Test (T-Spot) Com TB Test Nil Control TB Test Panel A TB Test Panel B TB Test Positive [facility] Microbiology Microbiology Results: Microbiology 11/30/22 18:30 Pleural Fluid Gram Stain - Final 11/30/22 18:30 Pleural Fluid Routine Culture - Preliminary No growth to date. 11/30/22 18:30 Pleural Fluid Anaerobic Culture - Preliminary No growth to date. 11/28/22 09:33 Sputum - Expectorated Gram Stain - Final 11/28/22 09:33 Sputum - Expectorated Sputum Culture - Final Streptococcus pyogenes (Grp A) Yeast 11/26/22 16:13 Blood - Venous Blood Culture - Preliminary No growth after 48 hours. 11/26/22 16:13 Blood - Venous Blood Culture - Preliminary No growth after 48 hours. Progress Note: A&P Assessment and plan (1) Sepsis with acute hypoxic respiratory failure: Status: Acute (2) Hydropneumothorax: Status: Acute (3) Cavitary pneumonia: Status: Acute (4) Bipolar 1 disorder: Status: Acute Plan Assessment: 42-year-old gentleman with severe left-sided pneumonia, likely streptococcal, complicated by hydropneumothorax, now status post placement of chest tube undergoing chemical decortication Plan: Neuro: No acute issues. Cardiac: No acute issues. Pulmonary: Left-sided pneumonia, likely streptococcal. AFB is unlikely. Pleural ADA is pending. T spot is negative. Hydropneumothorax status post left-sided chest tube undergoing chemical decortication. Thoracic surgery service care appreciated. Continue to titrate off supplemental oxygen as tolerated. May require mechanical decortication. Renal: No acute issues. Endo: No acute issues. GI: No acute issues. ID: Infectious Disease service care appreciated. Now covered with vancomycin and Zosyn. Heme/Onc: No acute issues. Psych: No acute issues. Underlying bipolar disorder. Miscellaneous: No acute issues. Prophylaxis: Lovenox Diet: Regular Patient has been transferred back to telemetry gant. Transfer discussed with Sonal Tilley. Quality Stroke Does the patient have a stroke diagnosis?: No VTE Prior VTE?: No VTE Risk Level:: Medical - moderate - high VTE Device Contraindication: Treatment Not Indicated VTE Drug Contraindication: N/A - Med Ordered
--- NOTE | 2022-12-01 13:11 | P.EN_ITS ---
Event Note Date of Service: 12/01/22 Event Note: Patient transfered out of ICU this morning, pt seen, chart reviwed. A/P as outlined Reporting Developer, I discussed the case with him Time Spent With Patient Time: Total time managing care of this patient today ____ minutes.
[2022-12-01] MEDS: Enoxaparin Sodium 40 MG/0.4 ML SYRINGE SUBCUT (20:42)
[2022-12-01] MEDS: Divalproex Sodium 500 MG TABLET.DR 2000 MG PO (20:42)
[2022-12-01] MEDS: bisacodyL 5 MG TABLET.DR PO (20:42)
[2022-12-01] MEDS: vancomycin HCL 1,500 MG in 0.9 % Sodium Chloride 500 ML 333.33 MG IV (22:14)
[2022-12-01] MEDS: Alteplase Cath Clear 10 MG, Dornase Alfa 5 MG, Lidocaine HCl 2 % MPF 10 ML in 0.9 % Sod... 50 MG INTRAPLEUR (22:27)
[2022-12-01] MEDS: Morphine Sulfate 4 MG/ML CARTRIDGE IVPUSH (23:29)
[2022-12-02] VITALS: BP 142/78; PULSE 106; RESP 24; TEMP 36.9; O2SAT 96
[2022-12-02] MEDS: Piperacillin Sodium/Tazobactam 4.5 GM in 0.9 % Sodium Chloride 100 ML IV ×4 (03:17→21:29)
[2022-12-02 04:00] VITALS: BP 170/107; PULSE 124; RESP 28; TEMP 36.8; O2SAT 95
[2022-12-02] MEDS: Morphine Sulfate 4 MG/ML CARTRIDGE IVPUSH (04:11)
[2022-12-02] MEDS: HYDROmorphone HCl 1 MG/ML SYRINGE IVPUSH (04:56)
[2022-12-02 07:29] LABS: Venous Blood Gas Refer to POC result
[2022-12-02 07:30] LABS: Hematocrit 31.6 % (42.0-52.0); Hemoglobin 10.2 g/dl (14.0-18.0); Mean Corpuscular HGB Conc 32.3 g/dl (31.0-36.0); Mean Corpuscular Hemoglobin 27.5 pg (27.0-33.0); Mean Corpuscular Volume 85.2 fL (80.0-98.0); NRBC Pct Auto 0.1 /100WBC (0.0-0.2); Red Blood Count 3.71 X10*6/uL (4.60-5.80); Red Cell Distribution Width 16.6 % (11.0-16.0); White Blood Count 23.5 X10*3/uL (4.8-10.8)
[2022-12-02 07:30] LABS: VBG HCO3 37 mmol/L (22-26); VBG pCO2 63 mmHg; VBG pH 7.37 (7.32-7.43); VBG pO2 183 mmHg
[2022-12-02 07:49] LABS: Albumin Level 1.8 g/dL (3.5-5.0); Anion Gap 11 (12-20); Blood Urea Nitrogen 16 mg/dL (9-16); Calcium 8.1 mg/dL (8.4-10.2); Carbon Dioxide 29 mmol/L (22-29); Chloride 102 mmol/L (96-108); Creatinine Clr Calc Pharmacy 199.5; Estimated Glomerular Filt Rate > 60; Glucose Random 125 mg/dL (60-115); Magnesium 2.1 mg/dL (1.6-2.6); Phosphorus 4.3 mg/dL (2.7-4.5); Potassium 5.1 mmol/L (3.3-5.1); Sodium 137 mmol/L (135-145)
[2022-12-02 08:00] VITALS: BP 126/67; PULSE 106; RESP 21; TEMP 37.7; O2SAT 94
[2022-12-02 08:26] LABS: Band Neutrophils Percent 11 % (3-5); Lymphocytes Absolute Manual 1.4 X10*3/uL (1.2-4.9); Lymphocytes Percent Manual 6 % (20-40); Monocytes Absolute Manual 1.2 X10*3/uL (0.1-1.2); Monocytes Percent Manual 5 % (2-11); Myelocytes Absolute 1.2 X10*/uL; Myelocytes Percent 5 %; Neutrophils Absolute Manual 19.5 X10*3/uL (2.0-8.3); Neutrophils Percent Manual 72 % (45-73); Promyelocytes Absolute 0.2 X10*3/uL; Promyelocytes Percent 1 %
[2022-12-02 08:27] LABS: RBC Morphology NOTED
[2022-12-02 08:28] LABS: Hypochromasia 1+ (5-14) /OIF; Platelet Estimate DECREASED (NORMAL); Platelet Morphology Comment NORMAL; Spherocytes 1+ (0-2) /OIF; Target Cells 1+ (5-14) /OIF
[2022-12-02 08:29] LABS: Mean Platelet Volume 9.5 fL (9.4-12.4); Platelet Count 97 X10*3/uL (160-400)
--- NOTE | 2022-12-02 09:58 | P.PNIM_ITS ---
Subjective Subjective Date of Service: 12/02/22 Interval History: 42-year-old gentleman with underlying history of bipolar, anxiety, history of incarceration admitted on 11/26/2022 with progressive dyspnea and productive cough. On ER evaluation hypoxia requiring supplemental oxygen with evidence of left-sided cavitary pneumonia. Patient was started on broad-spectrum antibiotics and admitted to telemetry worked. Hospital course significant for progressive hypoxia and complete opacification of left hemithorax on 11/30/2022 requiring transfer to intensive care unit for close monitoring placement of large bore left-sided chest tube with drainage of 2.[address] chest with hydropneumothorax suggestive of loculated pleural effusion. Pleural fluid studies showing exudative eiffusion. Sputum cultures growing Streptococcus. Patient is MRSA positive on nasal swab. Evaluated by infectious disease disease and thoracic surgery with plan for chemical decortication. Transfer out of ICU and overall doing better today Review of Systems +Productive cough x2 weeks +Shortness of breath x1 week +Pleuritic chest pain with inspiration +Fatigue -Denies palpitations -no rash -no joint pains -No fever, chills, nausea, vomiting, abdominal pain Physical Exam Vital Signs: Vital Signs: Last Vital Signs Temp 99.8 F 12/02/22 08:00 Pulse 106 H 12/02/22 08:00 Resp 21 H 12/02/22 08:00 BP 126/67 12/02/22 08:00 Pulse Ox 94 12/02/22 08:00 O2 Del Method 12/02/22 08:00 O2 Flow Rate 9 12/02/22 08:00 FiO2 80 11/28/22 04:00 BMI result Body Mass Index 32.3 Objective Data Active Medications Acetaminophen (Acetaminophen 325 Mg Tablet) 650 mg PO Q6H PRN PRN Reason: Pain, Mild (Pain Scale 1-3) Albuterol/Ipratropium (Albuterol/Iprat 2.5/0.5mg 3 Ml Ampul.Neb) 3 ml INHALE RQ4H WHILE AWAKE PRN PRN Reason: wheezing or shortness of breath Last Admin: 11/29/22 17:56 Dose: 3 ml Documented By: MAURI Bisacodyl (Bisacodyl 5 Mg Tablet.) 5 mg PO BEDTIME MAHENDRA Last Admin: 12/01/22 20:42 Dose: 5 mg Documented By: MELISSA Buprenorphine/Naloxone (Buprenorphine/Naloxone 2/0.5mg Film) 1 film SUBLINGUAL DAILY [facility] Last Admin: 12/01/22 08:03 Dose: Not Given Documented By: GERRY Non-Admin Reason: Patient Refused Divalproex Sodium (Divalproex Sodium 500 Mg Tablet.) 2,000 mg PO BEDTIME [facility] Last Admin: 12/01/22 20:42 Dose: 2,000 mg Documented By: MELISSA Docusate Sodium (Docusate Sodium 100 Mg Capsule) 100 mg PO DAILY PRN PRN Reason: Constipation Enoxaparin Sodium (Enoxaparin Sodium 40 Mg/0.4 Ml Syringe) 40 mg SUBCUT Q24H [facility] Last Admin: 12/01/22 20:42 Dose: 40 mg Documented By: MELISSA Fentanyl (Fentanyl Citrate/Pf 100 Mcg/2 Ml Vial) 100 mcg IVPUSH Q2H PRN; Protocol PRN Reason: Pain, Moderate (Pain Scale 4-6 Piperacillin Sod/Tazobactam (Sod 4.5 gm/ Sodium Chloride) 100 mls @ 200 mls/hr IV Q6H [facility] Last Infusion: 12/02/22 04:12 Dose: 0 mls/hr Documented By: MELISSA Alteplase, Recombinant 10 mg/Dornase [place] 5 mg/ Lidocaine HCl 10 ml/ Sodium Chloride 50 mls @ 0 mls/hr INTRAPLEUR BID [facility] Stop: 12/04/22 09:01 Last Admin: 12/01/22 22:27 Dose: 50 mls/hr Documented By: MELISSA Comments: administered by Kamilla Coats Vancomycin HCl 1,500 mg/ (Sodium Chloride) 500 mls @ 333.333 mls/hr IV Q12H [facility] Last Infusion: 12/01/22 23:59 Dose: 0 mls/hr Documented By: MELISSA Morphine Sulfate (Morphine Sulfate 4 Mg/Ml Cartridge) 4 mg IVPUSH Q4H PRN; Protocol PRN Reason: severe pain Last Admin: 12/02/22 04:11 Dose: 4 mg Documented By: MELISSA Pharmacy Consult (Consult Rx Vancomycin Dosing) 1 each MISCELLANE DAILY PRN PRN Reason: Consult order Sodium Chloride (0.9 % Sodium Chloride Flush 3 Ml Syringe) 3 ml IVFLUSH QSHIFT [facility] Last Admin: 12/01/22 23:33 Dose: 3 ml Documented By: MELISSA Labs 12/02/22 07:21 12/02/22 07:21 Labs: Laboratory Results - last 24 hr 12/02/22 12/02/22 12/02/22 07:21 07:21 07:24 MCV 85.2 MCH 27.5 MCHC 32.3 RDW 16.6 H Plt Count 97 L MPV 9.5 Immature Gran % (Auto) Cancelled Neut % (Auto) Cancelled Lymph % (Auto) Cancelled [place] % (Auto) Cancelled Eos % (Auto) Cancelled Baso % (Auto) Cancelled Lymph # (Auto) Cancelled [place] # (Auto) Cancelled Eos # (Auto) Cancelled Baso # (Auto) Cancelled Abs Immat Gran (auto) Cancelled Absolute Neuts (auto) Cancelled Absolute Nucleated RBC 0.020 H Nucleated RBC % (auto) 0.1 Neutrophils % (Manual) 72 Band Neutrophils % 11 H Lymphocytes % (Manual) 6 L Monocytes % (Manual) 5 Myelocytes % 5 Promyelocytes % 1 Abs Neuts (Manual) 19.5 H Lymphocytes # (Manual) 1.4 Monocytes # (Manual) 1.2 Myelocytes # 1.2 Promyelocytes # 0.2 Platelet Estimate DECREASED Plt Morphology Comment NORMAL RBC Morphology NOTED Hypochromasia 1+ (5-14) Spherocytes 1+ (0-2) Target Cells 1+ (5-14) VBG pH 7.37 VBG pCO2 63 VBG pO2 183 VBG HCO3 37 H VBG O2 Saturation 100.0 VBG Base Excess 10.0 Anion Gap 11 L Estim Creat Clear Calc 199.5 Estimated GFR > 60 Random Glucose 125 H Calcium 8.1 L Phosphorus 4.3 Magnesium 2.1 Albumin 1.8 L Microbiology Microbiology Results: Microbiology 11/30/22 18:30 Gram Stain - Final Pleural Fluid Routine Culture - Preliminary No growth to date. Anaerobic Culture - Preliminary No growth to date. 11/26/22 16:13 Blood Culture - Final Blood - Venous No growth after 5 days. 11/26/22 16:13 Blood Culture - Final Blood - Venous No growth after 5 days. Assessment and Plan (1) Hydropneumothorax: Status: Acute (2) Cavitary pneumonia: Status: Acute Plan Assessment: 42-year-old gentleman with severe left-sided pneumonia, likely streptococcal, complicated by hydropneumothorax, now status post placement of chest tube undergoing chemical decortication Neuro: No acute issues. Cardiac: No acute issues. Pulmonary: Left-sided pneumonia, likely streptococcal. AFB is unlikely but pending. Pleural ADA is pending. T spot is negative. Hydropneumothorax status post left-sided chest tube undergoing chemical decortication. Thoracic surgery service care appreciated. Continue to titrate off supplemental oxygen as tole rated. May require mechanical decortication in OR Renal: No acute issues. Endo: No acute issues. GI: No acute issues. ID: Infectious Disease service care appreciated. Now covered with vancomycin and Zosyn. Heme/Onc: No acute issues. Psych: No acute issues. Underlying bipolar disorder. Miscellaneous: Opioid dependence. Suboxone Prophylaxis: Lovenox Diet: Regular Need for inpatient: Left sided with hydropneumothorax and has chest tube and acute ill and may need additiaonal surigical intervention Time Spent With Patient Time: Total time managing care of this patient today ____ minutes. Quality Stroke Does the patient have a stroke diagnosis?: No VTE Prior VTE?: No VTE Risk Level:: Medical - moderate - high VTE Device Contraindication: Treatment Not Indicated VTE Drug Contraindication: N/A - Med Ordered
[2022-12-02 10:01] LABS: Creatinine Clr Calc Pharmacy 187.5; Estimated Glomerular Filt Rate > 60
[2022-12-02] MEDS: 0.9 % Sodium Chloride Flush 3 ML SYRINGE IVFLUSH ×2 (10:36→18:26)
[2022-12-02 11:53] VITALS: BP 158/93; PULSE 108; RESP 21; TEMP 36.7; O2SAT 93
[2022-12-02] MEDS: vancomycin HCL 1,500 MG in 0.9 % Sodium Chloride 500 ML 333.33 MG IV (13:17)
[2022-12-02] MEDS: Acetaminophen 325 MG TABLET 650 MG PO (13:18)
--- NOTE | 2022-12-02 14:53 | MHC.CM.PN ---
Per MD rounds no dc today. Patient has a chest tube; which is managed by Thoracic. DP Home with family assist and transport.
--- NOTE | 2022-12-02 14:57 | P.PNTS_ITS ---
Subjective Subjective Date of Service: 12/02/22 Interval history: Mr. Wilkins is a 42 year old male who initially presented to the hospital on 11/26/22 with a 2 week history of shortness and cough for about 2 weeks and recent left sided pleuritic chest pain.? CXR initially demonstrated left upper lobe consolidation and CT chest showed a cavitary left upper lobe pulmonary mass. The patient has been admitted to the medical service since and treated for CAP/sepsis.? Apparently the patient also had had a recent incarceration raising suspicous for TB infection.? ID has seen the patient and continues to follow. Patient transferred out of the ICU yesterday and Dr. Mcdowell continues to follow patient. TPA was performed yesterday and today. Yesterday, chest tube drained 2.5L and pleuravac was recently changed over and another 300 cc of thin serosanguinous fluid drained. Physical Exam Vital Signs: Vital Signs: Last Vital Signs Temp 98.1 F 12/02/22 11:53 Pulse 108 H 12/02/22 11:53 Resp 21 H 12/02/22 11:53 BP 158/93 H 12/02/22 11:53 Pulse Ox 93 12/02/22 11:53 O2 Del Method 12/02/22 11:53 O2 Flow Rate 9 12/02/22 11:53 FiO2 80 11/28/22 04:00 BMI result Body Mass Index 32.3 Const: Other: Pt is sitting upright in bed, once nurse connected pleuravac to suction (per Dr. Mcdowell), pt complained of pain around chest tube site. Suction decreased to -10 mm Hg and tolerated it. ROS: he denies headache, fever, chills, abdominal pain, nausea, vomiting, and calf pain. Admits to shortness of breath being unchanged since admission and productive cough, and pain over chest tube site. HEENT: Other: NC/AT with non-icteric sclera, tachea midline, no cervical lympadenopathy and no JVD Chest: Other: Left sided 28 [address] chest tube in place. no crepitus. drained 2.5 L yesterday. Resp: Other: scattered rhonchi bilatrally Cardio: Other: RRR GI: Other: Abdomen soft, nontender, nondistended. : Other: Marcum in place Skin: Other: No rashes. Multiple tatoos Neuro: Other: grossly intact Extrem: Other: trace peripheral edema bilaterally Procedures Date of Service Date of Service: 12/02/22 Progress Note: A&P Assessment and plan (1) Hydropneumothorax: Status: Acute (2) Cavitary pneumonia: Status: Acute (3) Sepsis with acute hypoxic respiratory failure: Status: Acute (4) Thrombocytopenia: Status: Acute Plan Mr. Wilkins is a 42 year old male with cavitary pneumonia and a large left s ided hydropneumothoax. TB being ruled out. Left hydropneumothorax and cavitary pneumonia * s/p left chest tube placement on 11/30/22 * Pleural fluid gram stain negative.? Prelim no growth. Anaerobic no growth prelim. Culture, fungal, AFB pending. * Sputum from 11/28: Streptococcus pyrogenes + yeast * pt treated with TPA X 2. Large amount of pleural drainage (thin serosang) in past 24 hours. * Order CXR in am. * CT chest on Monday to reassess expansion of the lung following fibrinolytic therapy. Would suggest dornase to follow TPA. * Awaiting final TB testing results prior to considering surgical decortication.? * ID following.? Continue antibiotics: currently on Vanco/Zosyn.? ID note from 12/01/22 says consider Voriconazole. * Chest tube on -10 mm Hg suction due to increased pain on -20 mm Hg. RN reports suction requested by ICU attending. Thrombocytopenia * over the course of 1 week, platelets have decreased fro 203K to 97K. * patient presently on Lovenox 40 mg SQ. Notified primary care team. Case discussed with Dr. Wilkinson. Thank you for the consultation.? We will follow along and continue chest tube management. Time Spent With Patient Time: Total time managing care of this patient today ____ minutes. Quality Stroke Does the patient have a stroke diagnosis?: No VTE Prior VTE?: No VTE Risk Level:: Medical - moderate - high VTE Device Contraindication: Treatment Not Indicated VTE Drug Contraindication: N/A - Med Ordered
[2022-12-02 16:49] VITALS: BP 143/77; PULSE 109; RESP 22; TEMP 37.6; O2SAT 93
--- NOTE | 2022-12-02 18:40 | PC.NURSE ---
Pt chest tube drainage collection chamber replaced this shift, total shift output 560 ml.
[2022-12-02 20:00] VITALS: BP 155/86; PULSE 101; RESP 24; TEMP 36.8; O2SAT 92
[2022-12-02] MEDS: Enoxaparin Sodium 40 MG/0.4 ML SYRINGE SUBCUT (21:30)
[2022-12-02] MEDS: Divalproex Sodium 500 MG TABLET.DR 2000 MG PO (21:30)
[2022-12-02] MEDS: bisacodyL 5 MG TABLET.DR PO (21:30)
[2022-12-02 21:31] LABS: Vancomycin Trough 8.4 mcg/mL (10.0-20.0)
[2022-12-02] MEDS: vancomycin HCL 1,250 MG in 0.9 % Sodium Chloride 250 ML 166.67 MG IV (22:18)
[2022-12-02] MEDS: Alteplase Cath Clear 10 MG, Dornase Alfa 5 MG, Lidocaine HCl 2 % MPF 10 ML in 0.9 % Sod... 50 MG INTRAPLEUR (22:58)
[2022-12-03] VITALS: BP 132/87; PULSE 99; RESP 19; TEMP 36.8; O2SAT 98
[2022-12-03] MEDS: Piperacillin Sodium/Tazobactam 4.5 GM in 0.9 % Sodium Chloride 100 ML IV ×4 (02:52→23:29)
[2022-12-03 04:00] VITALS: BP 129/73; PULSE 99; RESP 20; TEMP 36.1; O2SAT 98
[2022-12-03] MEDS: vancomycin HCL 1,250 MG in 0.9 % Sodium Chloride 250 ML 166.67 MG IV (06:24)
[2022-12-03 07:07] LABS: Creatinine Clr Calc Pharmacy 224.4; Estimated Glomerular Filt Rate > 60
[2022-12-03 08:00] VITALS: BP 142/88; PULSE 94; RESP 18; TEMP 36.4; O2SAT 97
[2022-12-03 09:22] LABS: Hematocrit 31.5 % (42.0-52.0); Hemoglobin 10.3 g/dl (14.0-18.0); Mean Corpuscular HGB Conc 32.7 g/dl (31.0-36.0); Mean Corpuscular Hemoglobin 27.9 pg (27.0-33.0); Mean Corpuscular Volume 85.4 fL (80.0-98.0); Mean Platelet Volume 10.9 fL (9.4-12.4); NRBC Pct Auto 0.1 /100WBC (0.0-0.2); Platelet Count 103 X10*3/uL (160-400); Red Blood Count 3.69 X10*6/uL (4.60-5.80); Red Cell Distribution Width 16.6 % (11.0-16.0); White Blood Count 19.7 X10*3/uL (4.8-10.8)
[2022-12-03] MEDS: Alteplase Cath Clear 10 MG, Dornase Alfa 5 MG, Lidocaine HCl 2 % MPF 10 ML in 0.9 % Sod... 60 MG INTRAPLEUR (09:30)
[2022-12-03] MEDS: 0.9 % Sodium Chloride Flush 3 ML SYRINGE IVFLUSH ×3 (09:33→23:32)
[2022-12-03 09:40] LABS: Band Neutrophils Percent 5 % (3-5); Lymphocytes Percent Manual 15 % (20-40); Metamyelocytes Absolute 0.4 X10*3/uL; Metamyelocytes Percent 2 %; Monocytes Absolute Manual 1.6 X10*3/uL (0.1-1.2); Monocytes Percent Manual 8 % (2-11); Myelocytes Absolute 0.8 X10*/uL; Myelocytes Percent 4 %; Neutrophils Percent Manual 66 % (45-73)
[2022-12-03 09:41] LABS: Polychromasia 1+ (0-2) /OIF; RBC Morphology NORMAL; Target Cells 1+ (5-14) /OIF
[2022-12-03 09:42] LABS: Platelet Estimate SLIGHTLY DECREASED (NORMAL); Platelet Morphology Comment NORMAL
--- NOTE | 2022-12-03 10:28 | P.PNTS_ITS ---
Subjective Subjective Date of Service: 12/03/22 Interval history: Patient had chemical decortication dose given by Dr. Mcdowell on 12/01/22, yesterday, and again about 1 hour ago. RN in to unclamp tube during my visit with the patient. Patient denies any SOB or chest pressure/pain other than around the chest tube insertion site. Denies any fever, chills. Diagnostics: Short CBC 12/03/22 Range/Units 06:27 WBC 19.7 H (4.8-10.8) X10*3/uL Hgb 10.3 L (14.0-18.0) g/dl Hct 31.5 L (42.0-52.0) % Plt Count 103 L (160-400) X10*3/uL BMP 12/03/22 06:27 Creatinine 0.56 Microbiology 11/30/22 18:30 Pleural Fluid Gram Stain - Final 11/30/22 18:30 Pleural Fluid Routine Culture - Final No growth after 2 days 11/30/22 18:30 Pleural Fluid Anaerobic Culture - Preliminary No growth to date. 11/28/22 09:33 Sputum - Induced Direct Acid Fast Bacilli Smear - Final 11/26/22 16:13 Blood - Venous Blood Culture - Final No growth after 5 days. 11/26/22 16:13 Blood - Venous Blood Culture - Final No growth after 5 days. 11/28/22 09:33 Sputum - Expectorated Gram Stain - Final 11/28/22 09:33 Sputum - Expectorated Sputum Culture - Final Streptococcus pyogenes (Grp A) Yeast Name: Tony Wilkins Age/Sex: 42/M : 1980 Unit#: [id number] Attend Dr: Maycol Tilley MD Re11/26/22 Status: ADM IN Location: [facility] [id number] Disch: Specimen: [id number] Collected: 11/30/22 Status: RES Req#: [id number] Received: 11/30/22 Source: Pleural Fl Sp Desc: Subm Dr: Javier Mcdowell MD Ordered: Anaerobic Cult, Routine Cult GS Procedure Result Verified Site Gram stain Final 12/01/22-803 Gram stain results: 2+ polys No organisms seen Routine Culture Final 12/03/22-900 No growth after 2 days Anaerobic Culture Preliminary 12/03/22 No growth to date. Impressions Chest X-Ray 12/02/22 13:10 IMPRESSION: Left lower lobe consolidation. Left chest tube remains in the mid chest with a left upper lung pneumothorax. No change from 12/01/2022. Chest X-Ray 12/03/22 07:30 IMPRESSION: There has been no significant change, Redemonstration of near total opacification of the left hemithorax due to underlying pleural effusion and underlying atelectasis. Stable left pneumothorax. Left chest tube remain in place. Physical Exam Vital Signs: Vital Signs: Last Vital Signs Temp 97.5 F 12/03/22 08:00 Pulse 94 12/03/22 08:00 Resp 18 12/03/22 08:00 BP 142/88 H 12/03/22 08:00 Pulse Ox 97 12/03/22 08:00 O2 Del Method 12/03/22 08:00 O2 Flow Rate 9 12/03/22 08:00 FiO2 80 12/03/22 04:00 BMI result Body Mass Index 32.3 Procedures Date of Service Date of Service: 12/03/22 Progress Note: A&P Assessment and plan (1) Hydropneumothorax: Status: Acute (2) Cavitary pneumonia: Status: Acute (3) Sepsis with acute hypoxic respiratory failure: Status: Acute Plan Mr. Wilkins is a 42 year old male with cavitary pneumonia and a large left sided hydropneumothoax. TB being ruled out. s/p 28Fr chest tube insertion (Dr. Mcdowell) on 11/30/22 s/p chemical decortication (Dr. Mcdowell) on 11/30/22, 12/01/22, and again today Left hydropneumothorax and cavitary pneumonia * Pleural fluid studies show exudative process. Gram stain negative.? Culture without growth so far. AFB and fungal cultures pending. * Likely parapneumonic effusion +/- endobronchial mucous plugging * Sputum from 11/28: Streptococcus pyrogenes + yeast * Chemical decortication being performed by Dr. Mcdowell. Patient has had good outputs, however CXR is unchanged despite outputs indicating incomplete lung re-expansion. * Would continue to consider endobronchial mucous plugging as compounding cause of limited lung re-expansion. * Will check CT chest tomorrow to reassess. Ordered. * ID following.? Continue antibiotics: currently on Vanco/Zosyn.? ID note from 12/01/22 says consider Voriconazole. * Chest tube management after chemical decortication doses per Dr. Mcdowell. Currently chest tube set to -20 suction. Thrombocytopenia * Repeat platelets today 103 from 97. Time Spent With Patient Time: Total time managing care of this patient today ____ minutes. Quality Stroke Does the patient have a stroke diagnosis?: No VTE Prior VTE?: No VTE Risk Level:: Medical - moderate - high VTE Device Contraindication: Treatment Not Indicated VTE Drug Contraindication: N/A - Med Ordered
--- NOTE | 2022-12-03 11:09 | HO.PM.IMPN ---
Subjective Subjective Date of Service: 12/03/22 Interval History: f/u on hydropneumothorax, pneumonia s/p chest tube and undergoing chemical decordication overall seems better, O2 sat better, WBC trending down. Last CXR unchanged Physical Exam Vital Signs: Vital Signs: Last Vital Signs Temp 97.5 F 12/03/22 08:00 Pulse 94 12/03/22 08:00 Resp 18 12/03/22 08:00 BP 142/88 H 12/03/22 08:00 Pulse Ox 97 12/03/22 08:00 O2 Del Method 12/03/22 08:00 O2 Flow Rate 9 12/03/22 08:00 FiO2 80 12/03/22 04:00 BMI result Body Mass Index 32.3 Const: Other: General: AO X 3, no acute distress Resp: diminished on right side, right chest tube in place with ample drainage CVS: S1,S2,RRR GI: +BS, NT, no distention Skin: No rash Neuro: motor grossly intact Psych: appropriate affect Objective Data Active Medications Acetaminophen (Acetaminophen 325 Mg Tablet) 650 mg PO Q6H PRN PRN Reason: Pain, Mild (Pain Scale 1-3) Last Admin: 12/02/22 13:18 Dose: 650 mg Documented By: JADEN Albuterol/Ipratropium (Albuterol/Iprat 2.5/0.5mg 3 Ml Ampul.Neb) 3 ml INHALE RQ4H WHILE AWAKE PRN PRN Reason: wheezing or shortness of breath Last Admin: 11/29/22 17:56 Dose: 3 ml Documented By: MAURI Bisacodyl (Bisacodyl 5 Mg Tablet.) 5 mg PO BEDTIME COUNTS INCLUDE 234 BEDS AT THE [facility] Last Admin: 12/02/22 21:30 Dose: 5 mg Documented By: MOOKIE Buprenorphine/Naloxone (Buprenorphine/Naloxone 2/0.5mg Film) 1 film SUBLINGUAL DAILY COUNTS INCLUDE 234 BEDS AT THE [facility] Last Admin: 12/03/22 10:05 Dose: Not Given Documented By: ERVIN Non-Admin Reason: Patient Refused Divalproex Sodium (Divalproex Sodium 500 Mg Tablet.) 2,000 mg PO BEDTIME COUNTS INCLUDE 234 BEDS AT THE [facility] Last Admin: 12/02/22 21:30 Dose: 2,000 mg Documented By: MOOKIE Docusate Sodium (Docusate Sodium 100 Mg Capsule) 100 mg PO DAILY PRN PRN Reason: Constipation Enoxaparin Sodium (Enoxaparin Sodium 40 Mg/0.4 Ml Syringe) 40 mg SUBCUT Q24H COUNTS INCLUDE 234 BEDS AT THE [facility] Last Admin: 12/02/22 21:30 Dose: 40 mg Documented By: MOOKIE Fentanyl (Fentanyl Citrate/Pf 100 Mcg/2 Ml Vial) 100 mcg IVPUSH Q2H PRN; Protocol PRN Reason: Pain, Moderate (Pain Scale 4-6 Piperacillin Sod/Tazobactam (Sod 4.5 gm/ Sodium Chloride) 100 mls @ 200 mls/hr IV Q6H COUNTS INCLUDE 234 BEDS AT THE [facility] Last Infusion: 12/03/22 10:05 Dose: 0 mls/hr Documented By: ERVIN Alteplase, Recombinant 10 mg/Dornase Aquiles 5 mg/ Lidocaine HCl 10 ml/ Sodium Chloride 50 mls @ 0 mls/hr INTRAPLEUR BID COUNTS INCLUDE 234 BEDS AT THE [facility] Stop: 12/04/22 09:01 Last Admin: 12/03/22 09:30 Dose: 60 mls/hr Documented By: ERVIN Vancomycin HCl 1,250 mg/ (Sodium Chloride) 250 mls @ 166.667 mls/hr IV Q8H COUNTS INCLUDE 234 BEDS AT THE [facility] Last Infusion: 12/03/22 08:00 Dose: 0 mls/hr Documented By: ERVIN Pharmacy Consult (Consult Rx Vancomycin Dosing) 1 each MISCELLANE DAILY PRN PRN Reason: Consult order Sodium Chloride (0.9 % Sodium Chloride Flush 3 Ml Syringe) 3 ml IVFLUSH QSHIFT COUNTS INCLUDE 234 BEDS AT THE [facility] Last Admin: 12/03/22 09:33 Dose: 3 ml Documented By: ERVIN Labs 12/03/22 06:27 12/03/22 06:27 Labs: Laboratory Results - last 24 hr 12/02/22 12/03/22 12/03/22 20:52 06:27 06:27 MCV 85.4 MCH 27.9 MCHC 32.7 RDW 16.6 H Plt Count 103 L MPV 10.9 Immature Gran % (Auto) Cancelled Neut % (Auto) Cancelled Lymph % (Auto) Cancelled Prentiss % (Auto) Cancelled Eos % (Auto) Cancelled Baso % (Auto) Cancelled Lymph # (Auto) Cancelled Prentiss # (Auto) Cancelled Eos # (Auto) Cancelled Baso # (Auto) Cancelled Abs Immat Gran (auto) Cancelled Absolute Neuts (auto) Cancelled Absolute Nucleated RBC 0.020 H Nucleated RBC % (auto) 0.1 Neutrophils % (Manual) 66 Band Neutrophils % 5 Lymphocytes % (Manual) 15 L Monocytes % (Manual) 8 Metamyelocytes % 2 Myelocytes % 4 Abs Neuts (Manual) 14.0 H Lymphocytes # (Manual) 3.0 Monocytes # (Manual) 1.6 H Metamyelocytes # 0.4 Myelocytes # 0.8 Platelet Estimate SLIGHTLY DECREASED Plt Morphology Comment NORMAL RBC Morphology NORMAL Polychromasia 1+ (0-2) Target Cells 1+ (5-14) Estim Creat Clear Calc 224.4 Estimated GFR > 60 Vancomycin Trough 8.4 L Microbiology Microbiology Results: Microbiology 11/30/22 18:30 Gram Stain - Final Pleural Fluid Routine Culture - Final No growth after 2 days Anaerobic Culture - Preliminary No growth to date. 11/28/22 09:33 Direct Acid Fast Bacilli Smear - Final Sputum - Induced Assessment and Plan (1) Hydropneumothorax: Status: Acute (2) Cavitary pneumonia: Status: Acute Plan Assessment: 42-year-old gentleman with severe left-sided pneumonia, likely streptococcal, complicated by hydropneumothorax, now status post placement of chest tube undergoing chemical decortication Neuro: No acute issues. Cardiac: No acute issues. Pulmonary: Left-sided pneumonia, likely streptococcal. AFB is unlikely but pending. Pleural ADA is pending. T spot is negative. Hydropneumothorax status post left-sided chest tube undergoing chemical decortication. Thoracic surgery service following, recent CXR no signficant change, will have a repeat CT of chest . Continue to titrate off supplemental oxygen as tolerated. May require mechanical decortication in OR. WBC continues to trend down. last ID note state would consider Voriconazole, I will discuss with Dr. Christie Renal: No acute issues. Endo: No acute issues. GI: No acute issues. ID: Infectious Disease service care appreciated. Now covered with vancomycin and Zosyn. Heme/Onc: No acute issues. Psych: No acute issues. Underlying bipolar disorder. Miscellaneous: Opioid dependence. Suboxone Prophylaxis: Lovenox Diet: Regular Need for inpatient: Left sided with hydropneumothorax and has chest tube and acute ill and may need additiaonal surigical intervention Time Spent With Patient Time: Total time managing care of this patient today ____ minutes. Quality Stroke Does the patient have a stroke diagnosis?: No VTE Prior VTE?: No VTE Risk Level:: Medical - moderate - high VTE Device Contraindication: Treatment Not Indicated VTE Drug Contraindication: N/A - Med Ordered
[2022-12-03 11:51] VITALS: BP 137/72; PULSE 101; RESP 18; TEMP 36.8; O2SAT 92
[2022-12-03] MEDS: vancomycin HCL 1,250 MG in 0.9 % Sodium Chloride 250 ML 166.7 MG IV (15:51)
[2022-12-03 16:00] VITALS: BP 136/73; PULSE 87; RESP 15; TEMP 36.8; O2SAT 97
[2022-12-03 16:58] LABS: Legionella Ag Urine Not Detected (Not Detected)
[2022-12-03 20:00] VITALS: BP 138/72; PULSE 102; RESP 17; TEMP 36.6; O2SAT 97
[2022-12-03 21:39] LABS: Vancomycin Random 10.9 mcg/mL (15-20)
--- NOTE | 2022-12-03 21:45 | HE.PHANOTE ---
Vancomycin Dosing Trough is therapeutic today at 10.9. Will continue same regimen. Expected AUC 415 with a trough of 14.8. Pharmacy will continue to monitor renal function daily. Next level 2/5 @ 2099. Rima ContrerasD
[2022-12-03] MEDS: Divalproex Sodium 500 MG TABLET.DR 2000 MG PO (22:36)
[2022-12-03] MEDS: Alteplase Cath Clear 10 MG, Dornase Alfa 5 MG, Lidocaine HCl 2 % MPF 10 ML in 0.9 % Sod... 50 MG INTRAPLEUR (22:54)
[2022-12-04] VITALS: BP 139/86; PULSE 83; RESP 17; TEMP 36.7; O2SAT 96
[2022-12-04] MEDS: vancomycin HCL 1,250 MG in 0.9 % Sodium Chloride 250 ML 166.67 MG IV ×2 (00:31→07:42)
[2022-12-04 03:55] VITALS: BP 115/87; PULSE 96; RESP 23; TEMP 36.2; O2SAT 98
[2022-12-04] MEDS: Piperacillin Sodium/Tazobactam 4.5 GM in 0.9 % Sodium Chloride 100 ML IV ×4 (04:36→21:40)
[2022-12-04] MEDS: Acetaminophen 325 MG TABLET 650 MG PO ×3 (06:01→21:44)
[2022-12-04 07:48] LABS: Hematocrit 28.2 % (42.0-52.0); Hemoglobin 9.3 g/dl (14.0-18.0); Mean Corpuscular Hemoglobin 27.6 pg (27.0-33.0); Mean Corpuscular Volume 83.7 fL (80.0-98.0); Mean Platelet Volume 9.5 fL (9.4-12.4); Platelet Count 102 X10*3/uL (160-400); Red Blood Count 3.37 X10*6/uL (4.60-5.80); White Blood Count 15.7 X10*3/uL (4.8-10.8)
[2022-12-04 08:00] VITALS: BP 124/73; PULSE 99; RESP 19; TEMP 36.3; O2SAT 95
[2022-12-04 08:19] LABS: Band Neutrophils Percent 4 % (3-5); Lymphocytes Absolute Manual 0.8 X10*3/uL (1.2-4.9); Lymphocytes Percent Manual 5 % (20-40); Monocytes Absolute Manual 1.6 X10*3/uL (0.1-1.2); Monocytes Percent Manual 10 % (2-11); Myelocytes Absolute 0.2 X10*/uL; Myelocytes Percent 1 %; Neutrophils Absolute Manual 13.2 X10*3/uL (2.0-8.3); Neutrophils Percent Manual 80 % (45-73); RBC Morphology NOTED
[2022-12-04 08:20] LABS: Hypochromasia 1+ (5-14) /OIF; Target Cells 1+ (5-14) /OIF
[2022-12-04 08:21] LABS: Platelet Estimate SLIGHTLY DECREASED (NORMAL); Platelet Morphology Comment NORM
[2022-12-04 08:34] LABS: Estimated Glomerular Filt Rate > 60
--- NOTE | 2022-12-04 09:34 | HO.PM.IMPN ---
Subjective Subjective Date of Service: 12/04/22 Interval History: f/u on hydropneumothorax, pneumonia s/p chest tube and undergoing chemical decordication overall seems better, O2 sat better, WBC trending down. Last CXR unchanged, CT chest pending. He sasys he feels the best since admission remains hypoxic and on high amount of O2 Review of Systems no fever or hilss Physical Exam Vital Signs: Vital Signs: Last Vital Signs Temp 97.4 F 12/04/22 08:00 Pulse 99 12/04/22 08:00 Resp 19 12/04/22 08:00 BP 124/73 12/04/22 08:00 Pulse Ox 95 12/04/22 08:00 O2 Del Method 12/04/22 08:00 O2 Flow Rate 9 12/04/22 08:00 FiO2 80 12/03/22 04:00 BMI result Body Mass Index 32.3 Const: Other: General: AO X 3, no acute distress Resp: diminished on right side, right chest tube in place with ample drainage CVS: S1,S2,RRR GI: +BS, NT, no distention Skin: No rash Neuro: motor grossly intact Psych: appropriate affect Objective Data Active Medications Acetaminophen (Acetaminophen 325 Mg Tablet) 650 mg PO Q6H PRN PRN Reason: Pain, Mild (Pain Scale 1-3) Last Admin: 12/04/22 06:01 Dose: 650 mg Documented By: ALETHA Albuterol/Ipratropium (Albuterol/Iprat 2.5/0.5mg 3 Ml Ampul.Neb) 3 ml INHALE RQ4H WHILE AWAKE PRN PRN Reason: wheezing or shortness of breath Last Admin: 11/29/22 17:56 Dose: 3 ml Documented By: MAURI Bisacodyl (Bisacodyl 5 Mg Tablet.) 5 mg PO BEDTIME MAHENDRA Last Admin: 12/03/22 23:23 Dose: Not Given Documented By: ALETHA Non-Admin Reason: Patient Refused Buprenorphine/Naloxone (Buprenorphine/Naloxone 2/0.5mg Film) 1 film SUBLINGUAL DAILY MAHENDRA Last Admin: 12/03/22 10:05 Dose: Not Given Documented By: ERVIN Non-Admin Reason: Patient Refused Divalproex Sodium (Divalproex Sodium 500 Mg Tablet.) 2,000 mg PO BEDTIME [facility] Last Admin: 12/03/22 22:36 Dose: 2,000 mg Documented By: ALETHA Docusate Sodium (Docusate Sodium 100 Mg Capsule) 100 mg PO DAILY PRN PRN Reason: Constipation Enoxaparin Sodium (Enoxaparin Sodium 40 Mg/0.4 Ml Syringe) 40 mg SUBCUT Q24H [facility] Last Admin: 12/03/22 23:23 Dose: Not Given Documented By: ALETHA Non-Admin Reason: Patient Refused Fentanyl (Fentanyl Citrate/Pf 100 Mcg/2 Ml Vial) 100 mcg IVPUSH Q2H PRN; Protocol PRN Reason: Pain, Moderate (Pain Scale 4-6 Piperacillin Sod/Tazobactam (Sod 4.5 gm/ Sodium Chloride) 100 mls @ 200 mls/hr IV Q6H [facility] Last Infusion: 12/04/22 05:05 Dose: 0 mls/hr Documented By: ALETHA Vancomycin HCl 1,250 mg/ (Sodium Chloride) 250 mls @ 166.667 mls/hr IV Q8H [facility] Last Admin: 12/04/22 07:42 Dose: 166.67 mls/hr Documented By: ERVIN Pharmacy Consult (Consult Rx Vancomycin Dosing) 1 each MISCELLANE DAILY PRN PRN Reason: Consult order Sodium Chloride (0.9 % Sodium Chloride Flush 3 Ml Syringe) 3 ml IVFLUSH QSHIFT [facility] Last Admin: 12/03/22 23:32 Dose: 3 ml Documented By: ALETHA Labs 12/04/22 06:49 12/04/22 06:49 Labs: Laboratory Results - last 24 hr 11/26/22 12/03/22 12/03/22 21:36 06:27 21:01 MCV 85.4 MCH 27.9 MCHC 32.7 RDW 16.6 H Plt Count 103 L MPV 10.9 Immature Gran % (Auto) Cancelled Neut % (Auto) Cancelled Lymph % (Auto) Cancelled Wetzel % (Auto) Cancelled Eos % (Auto) Cancelled Baso % (Auto) Cancelled Lymph # (Auto) Cancelled Wetzel # (Auto) Cancelled Eos # (Auto) Cancelled Baso # (Auto) Cancelled Abs Immat Gran (auto) Cancelled Absolute Neuts (auto) Cancelled Absolute Nucleated RBC 0.020 H Nucleated RBC % (auto) 0.1 Neutrophils % (Manual) 66 Band Neutrophils % 5 Lymphocytes % (Manual) 15 L Monocytes % (Manual) 8 Metamyelocytes % 2 Myelocytes % 4 Abs Neuts (Manual) 14.0 H Lymphocytes # (Manual) 3.0 Monocytes # (Manual) 1.6 H Metamyelocytes # 0.4 Myelocytes # 0.8 Platelet Estimate SLIGHTLY DECREASED Plt Morphology Comment NORMAL RBC Morphology NORMAL Polychromasia 1+ (0-2) Hypochromasia Target Cells 1+ (5-14) Estim Creat Clear Calc Estimated GFR Random Vancomycin 10.9 L Ur L.pneumophila Ag Not Detected 12/04/22 12/04/22 06:49 06:49 MCV 83.7 MCH 27.6 MCHC 33.0 RDW 16.0 Plt Count 102 L MPV 9.5 Immature Gran % (Auto) Cancelled Neut % (Auto) Cancelled Lymph % (Auto) Cancelled Wetzel % (Auto) Cancelled Eos % (Auto) Cancelled Baso % (Auto) Cancelled Lymph # (Auto) Cancelled Wetzel # (Auto) Cancelled Eos # (Auto) Cancelled Baso # (Auto) Cancelled Abs Immat Gran (auto) Cancelled Absolute Neuts (auto) Cancelled Absolute Nucleated RBC 0.000 Nucleated RBC % (auto) 0.0 Neutrophils % (Manual) 80 H Band Neutrophils % 4 Lymphocytes % (Manual) 5 L Monocytes % (Manual) 10 Metamyelocytes % Myelocytes % 1 Abs Neuts (Manual) 13.2 H Lymphocytes # (Manual) 0.8 L Monocytes # (Manual) 1.6 H Metamyelocytes # Myelocytes # 0.2 Platelet Estimate SLIGHTLY DECREASED Plt Morphology Comment NORM RBC Morphology NOTED Polychromasia Hypochromasia 1+ (5-14) Target Cells 1+ (5-14) Estim Creat Clear Calc 213.0 Estimated GFR > 60 Random Vancomycin Ur L.pneumophila Ag Microbiology Microbiology Results: Microbiology 11/30/22 18:30 Gram Stain - Final Pleural Fluid Routine Culture - Final No growth after 2 days Anaerobic Culture - Preliminary No growth to date. Assessment and Plan (1) Hydropneumothorax: Status: Acute (2) Cavitary pneumonia: Status: Acute Plan Assessment: 42-year-old gentleman with severe left-sided pneumonia, likely streptococcal, complicated by hydropneumothorax, now status post placement of chest tube undergoing chemical decortication. Overall continue to make progress, WBC is trending down Neuro: No acute issues, more alert, awake Cardiac: No acute issues. Pulmonary: Left-sided pneumonia, likely streptococcal. AFB is unlikely but pending. Pleural ADA is pending. T spot is negative. Hydropneumothorax status post left-sided chest tube undergoing chemical decortication. Thoracic surgery service following, recent CXR no signficant change, will have a repeat CT of chest today . Continue to titrate off supplemental oxygen as tolerated. May require mechanical decortication in OR. WBC continues to trend down. last ID note state would consider Voriconazole, I will discuss with Dr. Christie Renal: No acute issues. Endo: No acute issues. GI: No acute issues. ID: Infectious Disease service care appreciated. Now covered with vancomycin and Zosyn. Heme/Onc: No acute issues. Psych: No acute issues. Underlying bipolar disorder. Miscellaneous: Opioid dependence. Suboxone Prophylaxis: Lovenox Diet: Regular Need for inpatient: Left sided with hydropneumothorax and has chest tube and acute ill and may need additiaonal surigical intervention Time Spent With Patient Time: Total time managing care of this patient today ____ minutes. Quality Stroke Does the patient have a stroke diagnosis?: No VTE Prior VTE?: No VTE Risk Level:: Medical - moderate - high VTE Device Contraindication: Treatment Not Indicated VTE Drug Contraindication: N/A - Med Ordered
--- NOTE | 2022-12-04 09:45 | P.PNTS_ITS ---
Subjective Subjective Date of Service: 12/04/22 Interval history: Patient had no issues overnight. Chest tube remains to -20 suction. Unclear how much fluid output overnight as looks like Atrium has been tipped over. Per chart ~70cc. Patient still requiring oxygen supplementation. Diagnostics: Short CBC 12/04/22 Range/Units 06:49 WBC 15.7 H (4.8-10.8) X10*3/uL Hgb 9.3 L (14.0-18.0) g/dl Hct 28.2 L (42.0-52.0) % Plt Count 102 L (160-400) X10*3/uL BMP 12/04/22 06:49 Creatinine 0.59 Name: Tony Wilkins Age/Sex: 42/M : 1980 Unit#: [id number] Attend Dr: Maycol Tilley MD Re11/26/22 Status: ADM IN Location: [place] [address] Disch: Specimen: [id number] Collected: 11/30/22 Status: RES Req#: [id number] Received: 11/30/22 Source: Pleural Fl Sp Desc: Subm Dr: Javier Mcdowell MD Ordered: Anaerobic Cult, Routine Cult GS Procedure Result Verified Site Gram stain Final 12/01/22 Gram stain results: 2+ polys No organisms seen Routine Culture Final 12/03/22 No growth after 2 days Anaerobic Culture Preliminary 12/04/[address] No growth to date. CT chest done today pending radiology read. Per my review it appears that there has been improved aeration of the left lower lobe, but still near complete collapse of the SEBASTIAN with a hydroPTX at the apex. There also continues to be narrowing of the left mainstem bronchus with no clear takeoff of the SEBASTIAN bronchus indicating ongoing mucous plugging. There is not much residual fluid at the base. There are no significant areas of loculation. Physical Exam Vital Signs: Vital Signs: Last Vital Signs Temp 97.4 F 12/04/22 08:00 Pulse 99 12/04/22 08:00 Resp 19 12/04/22 08:00 BP 124/73 12/04/22 08:00 Pulse Ox 95 12/04/22 08:00 O2 Del Method 12/04/22 08:00 O2 Flow Rate 9 12/04/22 08:00 FiO2 80 12/03/22 04:00 BMI result Body Mass Index 32.3 General: No acute distress, resting comfortably in bed sleeping, well developed Head: Normocephalic, atraumatic, symmetric Eyes: Eyelids without edema or erythema, +EOMS intact ENT: Oral mucosa and tongue are moist. Poor dentition. Neck: Soft, supple, symmetric, trachea midline, no crepitus Cardiovascular: Regular rate and rhythm, no murmur/rubs/gallops, BUE and BLE without edema, no calf tenderness bilaterally Respiratory: Right anterior lung field clear, L lung field diminished, breathing nonlabored, on oxygen via nasal cannula. No use of accessory muscles. No crepitus. Right chest tube x 1 to Atrium on -20 suction, serous drainage, no air leak. Gastrointestinal: Soft, non-tender, non-distended, +normoactive bowel sounds. Psychiatric: No agitation Procedures Date of Service Date of Service: 12/04/22 Progress Note: A&P Assessment and plan (1) Hydropneumothorax: Status: Acute (2) Cavitary pneumonia: Status: Acute (3) Sepsis with acute hypoxic respiratory failure: Status: Acute Plan Mr. Wilkins is a 42 year old male with cavitary pneumonia and a large left sided hydropneumothoax. TB being ruled out. s/p 28Fr chest tube insertion (Dr. Mcdowell) on 11/30/22 s/p chemical decortication (Dr. Mcdowell) on 11/30/22, 12/01/22, and 12/02/22 Left hydropneumothorax and cavitary pneumonia * Pleural fluid studies show exudative process. Cultures negative. Anerobic, AFB and fungal cultures pending. * Likely parapneumonic effusion with endobronchial mucous plugging * Repeat chest CT done today pending radiology read. Per my review it appears that there has been improved aeration of the left lower lobe, but continued consolidation vs. atelectasis. Still near complete collapse of the SEBASTIAN with a hydroPTX at the apex. There also continues to be narrowing of the left mainstem bronchus with no clear takeoff of the SEBASTIAN bronchus indicating ongoing mucous plugging. There is not much residual fluid at the base. There are no significant areas of loculation. * Recommend bronchoscopy by pulmonology to evaluate and clear out the left sided airways. Further culture can also be taken if needed from ID perspective. * In addition to bronchoscopy, chest PT, mucolytcs, and aggressive pulmonary toileting with IS/acapella should be done. * There is no indication for additional chest tube insertion, chemical or surgical decortication at this time. Attention should be paid to opening the bronchi to the SEBASTIAN and LLL to aide with lung re-expansion. * ID following.? Continue antibiotics: currently on Vanco/Zosyn.? ID note from 12/01/22 says consider Voriconazole. * Improved leukocytosis. * Would continue chest tube to -20 suction for now. Monitor outputs. Case discussed with Dr. Wilkinson. Time Spent With Patient Time: Total time managing care of this patient today ____ minutes. Quality Stroke Does the patient have a stroke diagnosis?: No VTE Prior VTE?: No VTE Risk Level:: Medical - moderate - high VTE Device Contraindication: Treatment Not Indicated VTE Drug Contraindication: N/A - Med Ordered
[2022-12-04] MEDS: 0.9 % Sodium Chloride Flush 3 ML SYRINGE IVFLUSH ×2 (10:23→15:57)
[2022-12-04] MEDS: guaiFENesin LA 600 MG TAB.ER.12H 1200 MG PO ×2 (10:58→21:39)
[2022-12-04] MEDS: vancomycin HCL 1,250 MG in 0.9 % Sodium Chloride 250 ML 166.76 MG IV (15:52)
[2022-12-04 16:00] VITALS: BP 142/68; PULSE 91; RESP 16; TEMP 37.2; O2SAT 94
[2022-12-04 20:00] VITALS: BP 123/67; PULSE 95; RESP 15; TEMP 36.6; O2SAT 96
[2022-12-04] MEDS: Divalproex Sodium 500 MG TABLET.DR 2000 MG PO (21:40)
[2022-12-04 21:49] LABS: Vancomycin Random 11.9 mcg/mL (15-20)
--- NOTE | 2022-12-04 21:58 | HE.PHANOTE ---
Vancomycin Dosing While trough is in therapeutic levels, AUC is subtherapeutic. Will increase dose to vancomycin 1500 mg Q8H. Next level 2/ @ 2100. Pharmacy will continue to monitor renal function. Rima ContrerasD
[2022-12-05] VITALS (10 sets, daily range): BP systolic 113–134; BP diastolic 64–92; PULSE 80–122; RESP 16–22; TEMP 36.4–36.7; O2SAT 90–97
[2022-12-05] MEDS: 0.9 % Sodium Chloride Flush 3 ML SYRINGE IVFLUSH ×3 (00:35→20:39)
[2022-12-05] MEDS: vancomycin HCL 1,500 MG in 0.9 % Sodium Chloride 500 ML 166.67 MG IV ×3 (00:35→22:26)
[2022-12-05] MEDS: Piperacillin Sodium/Tazobactam 4.5 GM in 0.9 % Sodium Chloride 100 ML IV ×3 (03:26→20:36)
[2022-12-05 08:04] LABS: Creatinine Clr Calc Pharmacy 220.5; Estimated Glomerular Filt Rate > 60
[2022-12-05 08:08] LABS: INTERNATIONAL NORM RATIO 1.5 (0.9-1.1); Prothrombin Time 17.7 SEC (10.0-13.1)
[2022-12-05 09:19] LABS: Hemoglobin 9.1 g/dl (14.0-18.0); Mean Corpuscular HGB Conc 32.5 g/dl (31.0-36.0); Mean Corpuscular Hemoglobin 27.4 pg (27.0-33.0); Mean Corpuscular Volume 84.3 fL (80.0-98.0); Mean Platelet Volume 10.2 fL (9.4-12.4); NRBC Pct Auto 0.1 /100WBC (0.0-0.2); PLT CLUMP 1; Platelet Count 142 X10*3/uL (160-400); Red Blood Count 3.32 X10*6/uL (4.60-5.80); Red Cell Distribution Width 16.2 % (11.0-16.0); White Blood Count 17.2 X10*3/uL (4.8-10.8)
--- NOTE | 2022-12-05 10:37 | P.PNIM_ITS ---
Subjective Subjective Date of Service: 12/05/22 Interval History: f/u on hydropneumothorax, pneumonia s/p chest tube and undergoing chemical decordication, and believed to be suffering from mucus plug Overall is doing better, Oxygen titrated down to 3 liter from 9, more alert and interactive. For bronch today to adddress mucus plug Review of Systems no fever or hilss Physical Exam Vital Signs: Vital Signs: Last Vital Signs Temp 97.7 F 12/05/22 07:33 Pulse 94 12/05/22 07:33 Resp 22 H 12/05/22 07:33 BP 130/77 12/05/22 07:33 Pulse Ox 97 12/05/22 07:33 O2 Del Method 12/05/22 07:33 O2 Flow Rate 9 12/05/22 07:33 FiO2 80 12/03/22 04:00 BMI result Body Mass Index 32.3 Const: Other: General: AO X 3, no acute distress Resp: diminished on right side, right chest tube in place with ample drainage CVS: S1,S2,RRR GI: +BS, NT, no distention Skin: No rash Neuro: motor grossly intact Psych: appropriate affect Objective Data Active Medications Acetaminophen (Acetaminophen 325 Mg Tablet) 650 mg PO Q6H PRN PRN Reason: Pain, Mild (Pain Scale 1-3) Last Admin: 12/04/22 21:44 Dose: 650 mg Documented By: JOHN Albuterol/Ipratropium (Albuterol/Iprat 2.5/0.5mg 3 Ml Ampul.Neb) 3 ml INHALE RQ4H WHILE AWAKE PRN PRN Reason: wheezing or shortness of breath Last Admin: 11/29/22 17:56 Dose: 3 ml Documented By: MAURI Bisacodyl (Bisacodyl 5 Mg Tablet.) 5 mg PO BEDTIME MAHENDRA Last Admin: 12/04/22 21:10 Dose: Not Given Documented By: JOHN Non-Admin Reason: Patient Refused Buprenorphine/Naloxone (Buprenorphine/Naloxone 2/0.5mg Film) 1 film SUBLINGUAL DAILY MAHENDRA Last Admin: 12/04/22 10:23 Dose: Not Given Documented By: PHANLYM Non-Admin Reason: Patient Refused Divalproex Sodium (Divalproex Sodium 500 Mg Tablet.) 2,000 mg PO BEDTIME [facility] Last Admin: 12/04/22 21:40 Dose: 2,000 mg Documented By: JOHN Docusate Sodium (Docusate Sodium 100 Mg Capsule) 100 mg PO DAILY PRN PRN Reason: Constipation Enoxaparin Sodium (Enoxaparin Sodium 40 Mg/0.4 Ml Syringe) 40 mg SUBCUT Q24H [facility] Last Admin: 12/04/22 19:49 Dose: Not Given Documented By: JOHN Non-Admin Reason: Patient Refused Fentanyl (Fentanyl Citrate/Pf 100 Mcg/2 Ml Vial) 100 mcg IVPUSH Q2H PRN; Protocol PRN Reason: Pain, Moderate (Pain Scale 4-6 Guaifenesin (Guaifenesin La 600 Mg Tab.Er.12h) 1,200 mg PO BID [facility] Stop: 12/09/22 10:00 Last Admin: 12/04/22 21:39 Dose: 1,200 mg Documented By: JOHN Piperacillin Sod/Tazobactam (Sod 4.5 gm/ Sodium Chloride) 100 mls @ 200 mls/hr IV Q6H [facility] Last Infusion: 12/05/22 04:41 Dose: 0 mls/hr Documented By: JOHN Vancomycin HCl 1,500 mg/ (Sodium Chloride) 500 mls @ 166.667 mls/hr IV Q8H [facility] Last Admin: 12/05/22 06:09 Dose: 166.67 mls/hr Documented By: JOHN Pharmacy Consult (Consult Rx Vancomycin Dosing) 1 each MISCELLANE DAILY PRN PRN Reason: Consult order Sodium Chloride (0.9 % Sodium Chloride Flush 3 Ml Syringe) 3 ml IVFLUSH QSHIFT [facility] Last Admin: 12/05/22 00:35 Dose: 3 ml Documented By: JOHN Labs 12/05/22 08:49 12/05/22 07:00 Labs: Laboratory Results - last 24 hr 12/04/22 12/05/22 12/05/22 21:17 07:00 07:00 MCV MCH MCHC RDW Plt Count MPV Absolute Nucleated RBC Nucleated RBC % (auto) PT 17.7 H INR 1.5 H Estim Creat Clear Calc 220.5 Estimated GFR > 60 Random Vancomycin 11.9 L 12/05/22 08:49 MCV 84.3 MCH 27.4 MCHC 32.5 RDW 16.2 H Plt Count 142 L D MPV 10.2 Absolute Nucleated RBC 0.020 H Nucleated RBC % (auto) 0.1 PT INR Estim Creat Clear Calc Estimated GFR Random Vancomycin Microbiology Microbiology Results: Microbiology 11/30/22 18:30 Gram Stain - Final Pleural Fluid Routine Culture - Final No growth after 2 days Anaerobic Culture - Preliminary No growth to date. Assessment and Plan (1) Hydropneumothorax: Status: Acute (2) Cavitary pneumonia: Status: Acute Plan Assessment: 42-year-old gentleman with severe left-sided pneumonia, likely streptococcal, complicated by hydropneumothorax, now status post placement of chest tube in ICU, underwent chemical decortication. CT finding unchanged and concern of mucus plug so there is plan for bronch on 12/05. Overall continue to make progress, WBC is trending down Neuro: No acute issues, more alert, awake Cardiac: No acute issues. Pulmonary: Left-sided pneumonia, likely streptococcal. AFB is unlikely but pending. Pleural ADA is pending. T spot is negative. Hydropneumothorax status post left-sided chest tube undergoing chemical decortication. Thoracic surgery service following, recent CXR no signficant change, will have a repeat CT of chest today . Continue to titrate off supplemental oxygen as tolerated. May require mechanical decortication in OR. WBC continues to trend down. last ID note state would consider Voriconazole, but since getting better, WBC trending down hold of. For bronchoscopy today 12/[address] Mcdowell Renal: No acute issues. Endo: No acute issues. GI: No acute issues. ID: Infectious Disease service care appreciated. Now covered with vancomycin and Zosyn. Heme/Onc: No acute issues, INR on high side likely from acute illness, monitor Psych: No acute issues. Underlying bipolar disorder. Miscellaneous: Opioid dependence. Suboxone Prophylaxis: Lovenox Diet: Regular Need for inpatient: Left sided with hydropneumothorax and has chest tube and acute ill and may need additiaonal surigical intervention Time Spent With Patient Time: Total time managing care of this patient today ____ minutes. Quality Stroke Does the patient have a stroke diagnosis?: No VTE Prior VTE?: No VTE Risk Level:: Medical - moderate - high VTE Device Contraindication: Treatment Not Indicated VTE Drug Contraindication: N/A - Med Ordered
--- NOTE | 2022-12-05 10:45 | MHC.SHP ---
Pre-Procedural Eval Section A Date of Service: 12/05/22 The patient is an INPATIENT: Yes Changes since office visit: No Cold of Flu in the past 2 weeks, No New Medical Problems and No Changes in Medication The History & Physical has been completed within 30 days and I have reviewed it.: Yes Section B Chief Complaint: SOB, Cough, fatigue x2 weeks Allergies: Allergies Allergy/AdvReac Type Severity Reaction Status Date / Time quetiapine [From Seroquel] Allergy Chest Pain Verified 11/26/22 17:13 Plan Diagnosis/Plan: Unchanged I have reviewed the history and physical and performed a pertinent physical examination on my patient. No changes have occurred unless specified.
--- NOTE | 2022-12-05 12:00 | HO.ANESPROP2 ---
HPI - Anesthesia Eval Consult details Narrative: 42 M for broncoscopy sepsis , cavitary pneumonia, bipolar, thrombocytopenia s/p chest tube , on IV antibitics [facility] Active Problems Active Problems: All Active Problems (Updated 12/02/22 @ 15:15 by ANURAG Grover) Thrombocytopenia (Acute) Bipolar 1 disorder (Acute) Hydropneumothorax (Acute) Cavitary pneumonia (Acute) Sepsis with acute hypoxic respiratory failure (Acute) Severe sepsis (Acute) Chest pain (Acute) Sepsis (Acute) Pneumonia (Acute) Hypoxia (Acute) Past Medical History Medical History (Updated 12/02/22 @ 15:15 by ANURAG Grover) Anxiety Bipolar 1 disorder Cavitary pneumonia PTSD (post-traumatic stress disorder) Substance use disorder Family History Family history of problems with anesthesia: No Surgical History History of Problems with Anesthesia: No Social History Social History Household Members: Spouse and None Housing: House Unable to assess alcohol history related to: Unknown Alcohol intake: never Patient Tobacco Use Status: Former Tobacco user Smoked in Last 30 Days: Yes Patient Interested in Nicotine Replacement: No Use of substances other than those prescribed or required for medical reasons: Yes Substance Use Type: Other Currently Displaying Signs/Symptoms of Drug Intoxication Withdrawal: No Any prior treatment program specific to substance use: No Have you been hit, kicked, punched, or otherwise hurt by someone within the past year? If so, by whom?: No Do you feel safe in your current relationship?: Yes Is there a partner from a previous relationship who is making you feel unsafe now?: No Are you made to feel afraid or neglected: No Advance Directives: No Nutrition Risks: No Nutritional Risk service: No Current occupational status: disabled Meds Allergies Allergy/AdvReac Type Severity Reaction Status Date / Time quetiapine [From Seroquel] Allergy Chest Pain Verified 11/26/22 17:13 Active Medications: Current Medications Acetaminophen (Acetaminophen 325 Mg Tablet) 650 mg PO Q6H PRN PRN Reason: Pain, Mild (Pain Scale 1-3) Last Admin: 12/04/22 21:44 Dose: 650 mg Albuterol/Ipratropium (Albuterol/Iprat 2.5/0.5mg 3 Ml Ampul.Neb) 3 ml INHALE RQ4H WHILE AWAKE PRN PRN Reason: wheezing or shortness of breath Last Admin: 11/29/22 17:56 Dose: 3 ml Bisacodyl (Bisacodyl 5 Mg Tablet.) 5 mg PO BEDTIME [facility] Last Admin: 12/04/22 21:10 Dose: Not Given Buprenorphine/Naloxone (Buprenorphine/Naloxone 2/0.5mg Film) 1 film SUBLINGUAL DAILY [facility] Last Admin: 12/04/22 10:23 Dose: Not Given Divalproex Sodium (Divalproex Sodium 500 Mg Tablet.) 2,000 mg PO BEDTIME [facility] Last Admin: 12/04/22 21:40 Dose: 2,000 mg Docusate Sodium (Docusate Sodium 100 Mg Capsule) 100 mg PO DAILY PRN PRN Reason: Constipation Enoxaparin Sodium (Enoxaparin Sodium 40 Mg/0.4 Ml Syringe) 40 mg SUBCUT Q24H [facility] Last Admin: 12/04/22 19:49 Dose: Not Given Fentanyl (Fentanyl Citrate/Pf 100 Mcg/2 Ml Vial) 100 mcg IVPUSH Q2H PRN; Protocol PRN Reason: Pain, Moderate (Pain Scale 4-6 Guaifenesin (Guaifenesin La 600 Mg Tab.Er.12h) 1,200 mg PO BID [facility] Stop: 12/09/22 10:00 Last Admin: 12/04/22 21:39 Dose: 1,200 mg Piperacillin Sod/Tazobactam (Sod 4.5 gm/ Sodium Chloride) 100 mls @ 200 mls/hr IV Q6H [facility] Last Infusion: 12/05/22 04:41 Dose: Infused Vancomycin HCl 1,500 mg/ (Sodium Chloride) 500 mls @ 166.667 mls/hr IV Q8H [facility] Last Admin: 12/05/22 06:09 Dose: 166.67 mls/hr Pharmacy Consult (Consult Rx Vancomycin Dosing) 1 each MISCELLANE DAILY PRN PRN Reason: Consult order Sodium Chloride (0.9 % Sodium Chloride Flush 3 Ml Syringe) 3 ml IVFLUSH QSHIFT [facility] Last Admin: 12/05/22 00:35 Dose: 3 ml Home Medications Medication Instructions Recorded Confirmed Last Taken Type bisacodyl 5 mg tablet,delayed 5 mg PO BEDTIME 11/26/22 11/26/22 11/25/22 History release buprenorphine 12 mg-naloxone 3 mg 0.5 film buccal TID@0600,1000,1400 11/26/22 11/26/22 11/26/22 History sublingual film (Suboxone) buprenorphine 12 mg-naloxone 3 mg 0.5 strip sublingual DAILY@1800 11/26/22 11/26/22 11/25/22 History sublingual film (Suboxone) buprenorphine 8 mg-naloxone 2 mg 1 film buccal BEDTIME 11/26/22 11/26/22 11/25/22 History sublingual film (Suboxone) cetirizine 10 mg tablet 10 mg PO BEDTIME PRN Allergy 11/26/22 11/26/22 11/25/22 History Symptoms divalproex 500 mg tablet,delayed 4 tab PO BEDTIME 11/26/22 11/26/22 11/25/22 History release docusate sodium 100 mg capsule 100 mg PO BEDTIME 11/26/22 11/26/22 11/25/22 History ibuprofen 800 mg tablet 800 mg PO Q6H PRN Back Pain 11/26/22 11/26/22 11/25/22 History mirtazapine 45 mg tablet 1 tab PO BEDTIME 11/26/22 11/26/22 11/25/22 History olanzapine 5 mg tablet 2 tab PO BEDTIME 11/26/22 11/26/22 11/25/22 History prazosin 2 mg capsule 2 mg PO BEDTIME 11/26/22 11/26/22 11/25/22 History Exam Exam Date and Time: December 05, 2022 1200 Height,Weight and Vital Signs: Height 6 ft 1 in Weight 111 kg Last Vital Signs Temp 97.7 F 12/05/22 07:33 Pulse 94 12/05/22 07:33 Resp 22 H 12/05/22 07:33 BP 130/77 12/05/22 07:33 Pulse Ox 97 12/05/22 07:33 O2 Del Method 12/05/22 07:33 O2 Flow Rate 9 12/05/22 07:33 FiO2 80 12/03/22 04:00 Pertinent Lab Results Pertinent Lab Results: Laboratory Tests 11/26/22 11/26/22 11/26/22 15:41 15:59 15:59 WBC 43.5 H* RBC 4.47 L Hgb 12.6 L Hct 39.6 L MCV 88.6 MCH 28.2 MCHC 31.8 RDW 15.2 Plt Count 181 MPV 10.7 Immature Gran % (Auto) Cancelled Neut % (Auto) Cancelled Lymph % (Auto) Cancelled Armstrong % (Auto) Cancelled Eos % (Auto) Cancelled Baso % (Auto) Cancelled Lymph # (Auto) Cancelled Armstrong # (Auto) Cancelled Eos # (Auto) Cancelled Baso # (Auto) Cancelled Abs Immat Gran (auto) Cancelled Absolute Neuts (auto) Cancelled Absolute Nucleated RBC 0.020 H Nucleated RBC % (auto) 0.0 Neutrophils % (Manual) 81 H Band Neutrophils % 8 H Lymphocytes % (Manual) 5 L Atypical Lymphs % (Man) Monocytes % (Manual) 6 Metamyelocytes % Myelocytes % Promyelocytes % Abs Neuts (Manual) 38.7 H Lymphocytes # (Manual) 2.2 Atyp Lymphs # (Manual) Monocytes # (Manual) 2.6 H Metamyelocytes # Myelocytes # Promyelocytes # Smudge Cells Toxic Vacuolation PRESENT Platelet Estimate NORMAL Plt Morphology Comment NORMAL RBC Morphology NORMAL Polychromasia Hypochromasia Macrocytosis Spherocytes Target Cells Smear Path Review PT INR APTT D-Dimer High Sensitivty O2 Saturation ABG pH at Pt Temp ABG pCO2 at Pt Temp ABG pO2 at Pt Temp ABG HCO3 ABG Base Excess (Actual) VBG pH VBG pCO2 VBG pO2 VBG HCO3 VBG O2 Saturation VBG Base Excess Sodium 139 Potassium 3.5 Chloride 99 Carbon Dioxide 25 Anion Gap 19 BUN 29 H Creatinine 2.80 H Estim Creat Clear Calc 44.9 Estimated GFR 25 POC Glucose Random Glucose 145 H Lactic Acid Lactic Acid F/U @ 2Hr Lactic Acid F/U @ 4Hr Calcium 8.7 Phosphorus Magnesium 1.8 Total Bilirubin 0.8 AST 18 ALT 10 Alkaline Phosphatase 105 Lactate Dehydrogenase Troponin I High Sens B-Natriuretic Peptide Total Protein 6.8 Albumin 3.3 L Procalcitonin Urine Color Urine Appearance Urine pH Ur Specific [place] Urine Protein Urine Glucose (UA) Urine Ketones Urine Blood Urine Nitrite Ur Leukocyte Esterase Urine RBC Urine WBC Ur Squamous Epith Cells Urine Bacteria Hyaline Casts Granular Casts Pleural WBC Pleural RBC Pleural Neutrophils Pleural Monocytes Pleural Total Protein Pleural Albumin Pleural LDH Pleural Glucose Pleural Amylase Nasal Screen MRSA (PCR) Nasal S. aureus Screen Nasal MRSA/S.aureus Interp Vancomycin Trough Random Vancomycin Urine Opiates Screen Urine Fentanyl Screen Ur Barbiturates Screen Ur Phencyclidine Scrn Ur Amphetamines Screen U Benzodiazepines Scrn Urine Cocaine Screen U Marijuana (THC) Screen HIV 1&2 Ab/P24 Ag 4thGn Influenza Type A (PCR) NEGATIVE Influenza Type B (PCR) NEGATIVE Ur L.pneumophila Ag RSV RNA Qual (PCR) NEGATIVE SARS-CoV-2 RNA (RT-PCR) NEGATIVE Ur Strep pneumoniae Ag TB Test (T-Spot) Com TB Test Nil Control TB Test Panel A TB Test Panel B TB Test Positive Cntrl 11/26/22 11/26/22 11/26/22 15:59 15:59 15:59 WBC RBC Hgb Hct MCV MCH MCHC RDW Plt Count MPV Immature Gran % (Auto) Neut % (Auto) Lymph % (Auto) Armstrong % (Auto) Eos % (Auto) Baso % (Auto) Lymph # (Auto) Armstrong # (Auto) Eos # (Auto) Baso # (Auto) Abs Immat Gran (auto) Absolute Neuts (auto) Absolute Nucleated RBC Nucleated RBC % (auto) Neutrophils % (Manual) Band Neutrophils % Lymphocytes % (Manual) Atypical Lymphs % (Man) Monocytes % (Manual) Metamyelocytes % Myelocytes % Promyelocytes % Abs Neuts (Manual) Lymphocytes # (Manual) Atyp Lymphs # (Manual) Monocytes # (Manual) Metamyelocytes # Myelocytes # Promyelocytes # Smudge Cells Toxic Vacuolation Platelet Estimate Plt Morphology Comment RBC Morphology Polychromasia Hypochromasia Macrocytosis Spherocytes Target Cells Smear Path Review PT INR APTT D-Dimer High Sensitivty O2 Saturation ABG pH at Pt Temp ABG pCO2 at Pt Temp ABG pO2 at Pt Temp ABG HCO3 ABG Base Excess (Actual) VBG pH VBG pCO2 VBG pO2 VBG HCO3 VBG O2 Saturation VBG Base Excess Sodium Potassium Chloride Carbon Dioxide Anion Gap BUN Creatinine Estim Creat Clear Calc Estimated GFR POC Glucose Random Glucose Lactic Acid Lactic Acid F/U @ 2Hr Lactic Acid F/U @ 4Hr Calcium Phosphorus Magnesium Total Bilirubin AST ALT Alkaline Phosphatase Lactate Dehydrogenase Troponin I High Sens < 3.5 B-Natriuretic Peptide 60 Total Protein Albumin Procalcitonin Urine Color Urine Appearance Urine pH Ur Specific [place] Urine Protein Urine Glucose (UA) Urine Ketones Urine Blood Urine Nitrite Ur Leukocyte Esterase Urine RBC Urine WBC Ur Squamous Epith Cells Urine Bacteria Hyaline Casts Granular Casts Pleural WBC Pleural RBC Pleural Neutrophils Pleural Monocytes Pleural Total Protein Pleural Albumin Pleural LDH Pleural Glucose Pleural Amylase Nasal Screen MRSA (PCR) Nasal S. aureus Screen Nasal MRSA/S.aureus Interp Vancomycin Trough Random Vancomycin Urine Opiates Screen Urine Fentanyl Screen Ur Barbiturates Screen Ur Phencyclidine Scrn Ur Amphetamines Screen U Benzodiazepines Scrn Urine Cocaine Screen U Marijuana (THC) Screen HIV 1&2 Ab/P24 Ag 4thGn Influenza Type A (PCR) Influenza Type B (PCR) Ur L.pneumophila Ag RSV RNA Qual (PCR) SARS-CoV-2 RNA (RT-PCR) Ur Strep pneumoniae Ag TB Test (T-Spot) Com TB Test Nil Control TB Test Panel A TB Test Panel B TB Test Positive Cntrl 11/26/22 11/26/22 11/26/22 15:59 16:02 16:13 WBC RBC Hgb Hct MCV MCH MCHC RDW Plt Count MPV Immature Gran % (Auto) Neut % (Auto) Lymph % (Auto) Armstrong % (Auto) Eos % (Auto) Baso % (Auto) Lymph # (Auto) Armstrong # (Auto) Eos # (Auto) Baso # (Auto) Abs Immat Gran (auto) Absolute Neuts (auto) Absolute Nucleated RBC Nucleated RBC % (auto) Neutrophils % (Manual) Band Neutrophils % Lymphocytes % (Manual) Atypical Lymphs % (Man) Monocytes % (Manual) Metamyelocytes % Myelocytes % Promyelocytes % Abs Neuts (Manual) Lymphocytes # (Manual) Atyp Lymphs # (Manual) Monocytes # (Manual) Metamyelocytes # Myelocytes # Promyelocytes # Smudge Cells Toxic Vacuolation Platelet Estimate Plt Morphology Comment RBC Morphology Polychromasia Hypochromasia Macrocytosis Spherocytes Target Cells Smear Path Review PT INR APTT D-Dimer High Sensitivty O2 Saturation ABG pH at Pt Temp ABG pCO2 at Pt Temp ABG pO2 at Pt Temp ABG HCO3 ABG Base Excess (Actual) VBG pH 7.51 H VBG pCO2 31 VBG pO2 91 VBG HCO3 24 VBG O2 Saturation 98.0 VBG Base Excess 2.7 Sodium Potassium Chloride Carbon Dioxide Anion Gap BUN Creatinine Estim Creat Clear Calc Estimated GFR POC Glucose Random Glucose Lactic Acid 3.1 H* Lactic Acid F/U @ 2Hr Lactic Acid F/U @ 4Hr Calcium Phosphorus Magnesium Total Bilirubin AST ALT Alkaline Phosphatase Lactate Dehydrogenase Troponin I High Sens B-Natriuretic Peptide Total Protein Albumin Procalcitonin 2.46 Urine Color Urine Appearance Urine pH Ur Specific [place] Urine Protein Urine Glucose (UA) Urine Ketones Urine Blood Urine Nitrite Ur Leukocyte Esterase Urine RBC Urine WBC Ur Squamous Epith Cells Urine Bacteria Hyaline Casts Granular Casts Pleural WBC Pleural RBC Pleural Neutrophils Pleural Monocytes Pleural Total Protein Pleural Albumin Pleural LDH Pleural Glucose Pleural Amylase Nasal Screen MRSA (PCR) Nasal S. aureus Screen Nasal MRSA/S.aureus Interp Vancomycin Trough Random Vancomycin Urine Opiates Screen Urine Fentanyl Screen Ur Barbiturates Screen Ur Phencyclidine Scrn Ur Amphetamines Screen U Benzodiazepines Scrn Urine Cocaine Screen U Marijuana (THC) Screen HIV 1&2 Ab/P24 Ag 4thGn Influenza Type A (PCR) Influenza Type B (PCR) Ur L.pneumophila Ag RSV RNA Qual (PCR) SARS-CoV-2 RNA (RT-PCR) Ur Strep pneumoniae Ag TB Test (T-Spot) Com TB Test Nil Control TB Test Panel A TB Test Panel B TB Test Positive Cntrl 11/26/22 11/26/22 11/26/22 17:36 17:36 18:34 WBC RBC Hgb Hct MCV MCH MCHC RDW Plt Count MPV Immature Gran % (Auto) Neut % (Auto) Lymph % (Auto) Armstrong % (Auto) Eos % (Auto) Baso % (Auto) Lymph # (Auto) Armstrong # (Auto) Eos # (Auto) Baso # (Auto) Abs Immat Gran (auto) Absolute Neuts (auto) Absolute Nucleated RBC Nucleated RBC % (auto) Neutrophils % (Manual) Band Neutrophils % Lymphocytes % (Manual) Atypical Lymphs % (Man) Monocytes % (Manual) Metamyelocytes % Myelocytes % Promyelocytes % Abs Neuts (Manual) Lymphocytes # (Manual) Atyp Lymphs # (Manual) Monocytes # (Manual) Metamyelocytes # Myelocytes # Promyelocytes # Smudge Cells Toxic Vacuolation Platelet Estimate Plt Morphology Comment RBC Morphology Polychromasia Hypochromasia Macrocytosis Spherocytes Target Cells Smear Path Review PT Cancelled 15.1 H INR Cancelled 1.3 H APTT Cancelled 27.2 D-Dimer High Sensitivty O2 Saturation ABG pH at Pt Temp ABG pCO2 at Pt Temp ABG pO2 at Pt Temp ABG HCO3 ABG Base Excess (Actual) VBG pH VBG pCO2 VBG pO2 VBG HCO3 VBG O2 Saturation VBG Base Excess Sodium Potassium Chloride Carbon Dioxide Anion Gap BUN Creatinine Estim Creat Clear Calc Estimated GFR POC Glucose Random Glucose Lactic Acid Lactic Acid F/U @ 2Hr Lactic Acid F/U @ 4Hr Calcium Phosphorus Magnesium Total Bilirubin AST ALT Alkaline Phosphatase Lactate Dehydrogenase Troponin I High Sens B-Natriuretic Peptide Total Protein Albumin Procalcitonin Urine Color Urine Appearance Urine pH Ur Specific [place] Urine Protein Urine Glucose (UA) Urine Ketones Urine Blood Urine Nitrite Ur Leukocyte Esterase Urine RBC Urine WBC Ur Squamous Epith Cells Urine Bacteria Hyaline Casts Granular Casts Pleural WBC Pleural RBC Pleural Neutrophils Pleural Monocytes Pleural Total Protein Pleural Albumin Pleural LDH Pleural Glucose Pleural Amylase Nasal Screen MRSA (PCR) Nasal S. aureus Screen Nasal MRSA/S.aureus Interp Vancomycin Trough Random Vancomycin Urine Opiates Screen Urine Fentanyl Screen Ur Barbiturates Screen Ur Phencyclidine Scrn Ur Amphetamines Screen U Benzodiazepines Scrn Urine Cocaine Screen U Marijuana (THC) Screen HIV 1&2 Ab/P24 Ag 4thGn Nonreactive Influenza Type A (PCR) Influenza Type B (PCR) Ur L.pneumophila Ag RSV RNA Qual (PCR) SARS-CoV-2 RNA (RT-PCR) Ur Strep pneumoniae Ag TB Test (T-Spot) Com TB Test Nil Control TB Test Panel A TB Test Panel B TB Test Positive Cntrl 11/26/22 11/26/22 11/26/22 18:34 20:30 20:30 WBC RBC Hgb Hct MCV MCH MCHC RDW Plt Count MPV Immature Gran % (Auto) Neut % (Auto) Lymph % (Auto) Armstrong % (Auto) Eos % (Auto) Baso % (Auto) Lymph # (Auto) Armstrong # (Auto) Eos # (Auto) Baso # (Auto) Abs Immat Gran (auto) Absolute Neuts (auto) Absolute Nucleated RBC Nucleated RBC % (auto) Neutrophils % (Manual) Band Neutrophils % Lymphocytes % (Manual) Atypical Lymphs % (Man) Monocytes % (Manual) Metamyelocytes % Myelocytes % Promyelocytes % Abs Neuts (Manual) Lymphocytes # (Manual) Atyp Lymphs # (Manual) Monocytes # (Manual) Metamyelocytes # Myelocytes # Promyelocytes # Smudge Cells Toxic Vacuolation Platelet Estimate Plt Morphology Comment RBC Morphology Polychromasia Hypochromasia Macrocytosis Spherocytes Target Cells Smear Path Review PT INR APTT D-Dimer High Sensitivty O2 Saturation ABG pH at Pt Temp ABG pCO2 at Pt Temp ABG pO2 at Pt Temp ABG HCO3 ABG Base Excess (Actual) VBG pH VBG pCO2 VBG pO2 VBG HCO3 VBG O2 Saturation VBG Base Excess Sodium Potassium Chloride Carbon Dioxide Anion Gap BUN Creatinine Estim Creat Clear Calc Estimated GFR POC Glucose Random Glucose Lactic Acid Lactic Acid F/U @ 2Hr 4.0 H* Lactic Acid F/U @ 4Hr Calcium Phosphorus Magnesium Total Bilirubin AST ALT Alkaline Phosphatase Lactate Dehydrogenase Troponin I High Sens B-Natriuretic Peptide Total Protein Albumin Procalcitonin Urine Color Dark Yellow Urine Appearance Cloudy Urine pH 5.0 Ur Specific [place] 1.025 Urine Protein 30 (1+) H Urine Glucose (UA) Negative Urine Ketones Trace Urine Blood Negative Urine Nitrite Negative Ur Leukocyte Esterase Trace H Urine RBC 3-5 H Urine WBC 0-5 Ur Squamous Epith Cells 3-5 Urine Bacteria None Seen Hyaline Casts >20 Granular Casts Pleural WBC Pleural RBC Pleural Neutrophils Pleural Monocytes Pleural Total Protein Pleural Albumin Pleural LDH Pleural Glucose Pleural Amylase Nasal Screen MRSA (PCR) Nasal S. aureus Screen Nasal MRSA/S.aureus Interp Vancomycin Trough Random Vancomycin Urine Opiates Screen Not Detected Urine Fentanyl Screen Not Detected Ur Barbiturates Screen Not Detected Ur Phencyclidine Scrn POSITIVE H Ur Amphetamines Screen Not Detected U Benzodiazepines Scrn Not Detected Urine Cocaine Screen Not Detected U Marijuana (THC) Screen Not Detected HIV 1&2 Ab/P24 Ag 4thGn Influenza Type A (PCR) Influenza Type B (PCR) Ur L.pneumophila Ag RSV RNA Qual (PCR) SARS-CoV-2 RNA (RT-PCR) Ur Strep pneumoniae Ag TB Test (T-Spot) Com TB Test Nil Control TB Test Panel A TB Test Panel B TB Test Positive [facility] 11/26/22 11/26/22 11/26/22 21:03 21:36 21:36 WBC RBC Hgb Hct MCV MCH MCHC RDW Plt Count MPV Immature Gran % (Auto) Neut % (Auto) Lymph % (Auto) Armstrong % (Auto) Eos % (Auto) Baso % (Auto) Lymph # (Auto) Armstrong # (Auto) Eos # (Auto) Baso # (Auto) Abs Immat Gran (auto) Absolute Neuts (auto) Absolute Nucleated RBC Nucleated RBC % (auto) Neutrophils % (Manual) Band Neutrophils % Lymphocytes % (Manual) Atypical Lymphs % (Man) Monocytes % (Manual) Metamyelocytes % Myelocytes % Promyelocytes % Abs Neuts (Manual) Lymphocytes # (Manual) Atyp Lymphs # (Manual) Monocytes # (Manual) Metamyelocytes # Myelocytes # Promyelocytes # Smudge Cells Toxic Vacuolation Platelet Estimate Plt Morphology Comment RBC Morphology Polychromasia Hypochromasia Macrocytosis Spherocytes Target Cells Smear Path Review PT INR APTT D-Dimer High Sensitivty O2 Saturation ABG pH at Pt Temp ABG pCO2 at Pt Temp ABG pO2 at Pt Temp ABG HCO3 ABG Base Excess (Actual) VBG pH VBG pCO2 VBG pO2 VBG HCO3 VBG O2 Saturation VBG Base Excess Sodium Potassium Chloride Carbon Dioxide Anion Gap BUN Creatinine Estim Creat Clear Calc Estimated GFR POC Glucose Random Glucose Lactic Acid Lactic Acid F/U @ 2Hr Lactic Acid F/U @ 4Hr 3.4 H* Calcium Phosphorus Magnesium Total Bilirubin AST ALT Alkaline Phosphatase Lactate Dehydrogenase Troponin I High Sens B-Natriuretic Peptide Total Protein Albumin Procalcitonin Urine Color Urine Appearance Urine pH Ur Specific [place] Urine Protein Urine Glucose (UA) Urine Ketones Urine Blood Urine Nitrite Ur Leukocyte Esterase Urine RBC Urine WBC Ur Squamous Epith Cells Urine Bacteria Hyaline Casts Granular Casts Pleural WBC Pleural RBC Pleural Neutrophils Pleural Monocytes Pleural Total Protein Pleural Albumin Pleural LDH Pleural Glucose Pleural Amylase Nasal Screen MRSA (PCR) POSITIVE A Nasal S. aureus Screen POSITIVE A Nasal MRSA/S.aureus Interp SEE NOTE Vancomycin Trough Random Vancomycin Urine Opiates Screen Urine Fentanyl Screen Ur Barbiturates Screen Ur Phencyclidine Scrn Ur Amphetamines Screen U Benzodiazepines Scrn Urine Cocaine Screen U Marijuana (THC) Screen HIV 1&2 Ab/P24 Ag 4thGn Influenza Type A (PCR) Influenza Type B (PCR) Ur L.pneumophila Ag Not Detected RSV RNA Qual (PCR) SARS-CoV-2 RNA (RT-PCR) Ur Strep pneumoniae Ag Not Detected TB Test (T-Spot) Com TB Test Nil Control TB Test Panel A TB Test Panel B TB Test Positive Cntrl 11/27/22 11/27/22 11/27/22 05:52 05:52 08:50 WBC 45.2 H* RBC 3.95 L Hgb 11.1 L Hct 34.8 L MCV 88.1 MCH 28.1 MCHC 31.9 RDW 15.5 Plt Count 203 MPV 10.2 Immature Gran % (Auto) Neut % (Auto) Lymph % (Auto) Armstrong % (Auto) Eos % (Auto) Baso % (Auto) Lymph # (Auto) Armstrong # (Auto) Eos # (Auto) Baso # (Auto) Abs Immat Gran (auto) Absolute Neuts (auto) Absolute Nucleated RBC 0.040 H Nucleated RBC % (auto) 0.1 Neutrophils % (Manual) Band Neutrophils % Lymphocytes % (Manual) Atypical Lymphs % (Man) Monocytes % (Manual) Metamyelocytes % Myelocytes % Promyelocytes % Abs Neuts (Manual) Lymphocytes # (Manual) Atyp Lymphs # (Manual) Monocytes # (Manual) Metamyelocytes # Myelocytes # Promyelocytes # Smudge Cells Toxic Vacuolation Platelet Estimate Plt Morphology Comment RBC Morphology Polychromasia Hypochromasia Macrocytosis Spherocytes Target Cells Smear Path Review PT INR APTT D-Dimer High Sensitivty O2 Saturation ABG pH at Pt Temp ABG pCO2 at Pt Temp ABG pO2 at Pt Temp ABG HCO3 ABG Base Excess (Actual) VBG pH VBG pCO2 VBG pO2 VBG HCO3 VBG O2 Saturation VBG Base Excess Sodium 137 Potassium 4.0 Chloride 101 Carbon Dioxide 22 Anion Gap 18 BUN 38 H Creatinine 2.14 H Estim Creat Clear Calc 58.7 Estimated GFR 34 POC Glucose Random Glucose 217 H Lactic Acid Lactic Acid F/U @ 2Hr Lactic Acid F/U @ 4Hr Calcium 8.0 L D Phosphorus Magnesium Total Bilirubin AST ALT Alkaline Phosphatase Lactate Dehydrogenase Troponin I High Sens B-Natriuretic Peptide Total Protein Albumin Procalcitonin Urine Color Dark Yellow Urine Appearance Cloudy Urine pH 5.0 Ur Specific [place] 1.020 Urine Protein 30 (1+) H Urine Glucose (UA) Negative Urine Ketones Trace Urine Blood Negative Urine Nitrite Negative Ur Leukocyte Esterase Trace H Urine RBC 0-2 Urine WBC 0-5 Ur Squamous Epith Cells 6-10 Urine Bacteria None Seen Hyaline Casts 6-10 Granular Casts Present Pleural WBC Pleural RBC Pleural Neutrophils Pleural Monocytes Pleural Total Protein Pleural Albumin Pleural LDH Pleural Glucose Pleural Amylase Nasal Screen MRSA (PCR) Nasal S. aureus Screen Nasal MRSA/S.aureus Interp Vancomycin Trough Random Vancomycin Urine Opiates Screen Urine Fentanyl Screen Ur Barbiturates Screen Ur Phencyclidine Scrn Ur Amphetamines Screen U Benzodiazepines Scrn Urine Cocaine Screen U Marijuana (THC) Screen HIV 1&2 Ab/P24 Ag 4thGn Influenza Type A (PCR) Influenza Type B (PCR) Ur L.pneumophila Ag RSV RNA Qual (PCR) SARS-CoV-2 RNA (RT-PCR) Ur Strep pneumoniae Ag TB Test (T-Spot) Com TB Test Nil Control TB Test Panel A TB Test Panel B TB Test Positive Cntrl 11/28/22 11/28/22 11/28/22 06:57 06:57 06:57 WBC 39.5 H* RBC 3.85 L Hgb 10.8 L Hct 33.2 L MCV 86.2 MCH 28.1 MCHC 32.5 RDW 15.9 Plt Count 194 MPV 9.9 Immature Gran % (Auto) Cancelled Neut % (Auto) Cancelled Lymph % (Auto) Cancelled Armstrong % (Auto) Cancelled Eos % (Auto) Cancelled Baso % (Auto) Cancelled Lymph # (Auto) Cancelled Armstrong # (Auto) Cancelled Eos # (Auto) Cancelled Baso # (Auto) Cancelled Abs Immat Gran (auto) Cancelled Absolute Neuts (auto) Cancelled Absolute Nucleated RBC 0.060 H Nucleated RBC % (auto) 0.2 Neutrophils % (Manual) 82 H Band Neutrophils % 8 H Lymphocytes % (Manual) 5 L Atypical Lymphs % (Man) Monocytes % (Manual) 4 Metamyelocytes % 1 Myelocytes % Promyelocytes % Abs Neuts (Manual) 35.6 H Lymphocytes # (Manual) 2.0 Atyp Lymphs # (Manual) Monocytes # (Manual) 1.6 H Metamyelocytes # 0.4 Myelocytes # Promyelocytes # Smudge Cells Toxic Vacuolation PRESENT Platelet Estimate NORMAL Plt Morphology Comment NORMAL RBC Morphology NORMAL Polychromasia Hypochromasia Macrocytosis Spherocytes Target Cells Smear Path Review PT INR APTT D-Dimer High Sensitivty O2 Saturation ABG pH at Pt Temp ABG pCO2 at Pt Temp ABG pO2 at Pt Temp ABG HCO3 ABG Base Excess (Actual) VBG pH VBG pCO2 VBG pO2 VBG HCO3 VBG O2 Saturation VBG Base Excess Sodium 138 Potassium 4.1 Chloride 102 Carbon Dioxide 28 Anion Gap 12 BUN 41 H Creatinine 1.00 Estim Creat Clear Calc 125.6 Estimated GFR > 60 POC Glucose Random Glucose 105 Lactic Acid Lactic Acid F/U @ 2Hr Lactic Acid F/U @ 4Hr Calcium 8.2 L Phosphorus Magnesium Total Bilirubin AST ALT Alkaline Phosphatase Lactate Dehydrogenase Troponin I High Sens B-Natriuretic Peptide Total Protein Albumin Procalcitonin 2.01 Urine Color Urine Appearance Urine pH Ur Specific [place] Urine Protein Urine Glucose (UA) Urine Ketones Urine Blood Urine Nitrite Ur Leukocyte Esterase Urine RBC Urine WBC Ur Squamous Epith Cells Urine Bacteria Hyaline Casts Granular Casts Pleural WBC Pleural RBC Pleural Neutrophils Pleural Monocytes Pleural Total Protein Pleural Albumin Pleural LDH Pleural Glucose Pleural Amylase Nasal Screen MRSA (PCR) Nasal S. aureus Screen Nasal MRSA/S.aureus Interp Vancomycin Trough 6.2 L Random Vancomycin Urine Opiates Screen Urine Fentanyl Screen Ur Barbiturates Screen Ur Phencyclidine Scrn Ur Amphetamines Screen U Benzodiazepines Scrn Urine Cocaine Screen U Marijuana (THC) Screen HIV 1&2 Ab/P24 Ag 4thGn Influenza Type A (PCR) Influenza Type B (PCR) Ur L.pneumophila Ag RSV RNA Qual (PCR) SARS-CoV-2 RNA (RT-PCR) Ur Strep pneumoniae Ag TB Test (T-Spot) Com TB Test Nil Control TB Test Panel A TB Test Panel B TB Test Positive Cntrl 11/28/22 11/28/22 11/29/22 15:53 20:58 07:55 WBC RBC Hgb Hct MCV MCH MCHC RDW Plt Count MPV Immature Gran % (Auto) Neut % (Auto) Lymph % (Auto) Armstrong % (Auto) Eos % (Auto) Baso % (Auto) Lymph # (Auto) Armstrong # (Auto) Eos # (Auto) Baso # (Auto) Abs Immat Gran (auto) Absolute Neuts (auto) Absolute Nucleated RBC Nucleated RBC % (auto) Neutrophils % (Manual) Band Neutrophils % Lymphocytes % (Manual) Atypical Lymphs % (Man) Monocytes % (Manual) Metamyelocytes % Myelocytes % Promyelocytes % Abs Neuts (Manual) Lymphocytes # (Manual) Atyp Lymphs # (Manual) Monocytes # (Manual) Metamyelocytes # Myelocytes # Promyelocytes # Smudge Cells Toxic Vacuolation Platelet Estimate Plt Morphology Comment RBC Morphology Polychromasia Hypochromasia Macrocytosis Spherocytes Target Cells Smear Path Review PT INR APTT D-Dimer High Sensitivty O2 Saturation ABG pH at Pt Temp ABG pCO2 at Pt Temp ABG pO2 at Pt Temp ABG HCO3 ABG Base Excess (Actual) VBG pH VBG pCO2 VBG pO2 VBG HCO3 VBG O2 Saturation VBG Base Excess Sodium Potassium Chloride Carbon Dioxide Anion Gap BUN Creatinine Estim Creat Clear Calc Estimated GFR POC Glucose 197 H 192 H Random Glucose Lactic Acid Lactic Acid F/U @ 2Hr Lactic Acid F/U @ 4Hr Calcium Phosphorus Magnesium Total Bilirubin AST ALT Alkaline Phosphatase Lactate Dehydrogenase Troponin I High Sens B-Natriuretic Peptide Total Protein Albumin Procalcitonin Urine Color Urine Appearance Urine pH Ur Specific [place] Urine Protein Urine Glucose (UA) Urine Ketones Urine Blood Urine Nitrite Ur Leukocyte Esterase Urine RBC Urine WBC Ur Squamous Epith Cells Urine Bacteria Hyaline Casts Granular Casts Pleural WBC Pleural RBC Pleural Neutrophils Pleural Monocytes Pleural Total Protein Pleural Albumin Pleural LDH Pleural Glucose Pleural Amylase Nasal Screen MRSA (PCR) Nasal S. aureus Screen Nasal MRSA/S.aureus Interp Vancomycin Trough Random Vancomycin 5.1 L Urine Opiates Screen Urine Fentanyl Screen Ur Barbiturates Screen Ur Phencyclidine Scrn Ur Amphetamines Screen U Benzodiazepines Scrn Urine Cocaine Screen U Marijuana (THC) Screen HIV 1&2 Ab/P24 Ag 4thGn Influenza Type A (PCR) Influenza Type B (PCR) Ur L.pneumophila Ag RSV RNA Qual (PCR) SARS-CoV-2 RNA (RT-PCR) Ur Strep pneumoniae Ag TB Test (T-Spot) Com TB Test Nil Control TB Test Panel A TB Test Panel B TB Test Positive Cntrl 11/29/22 11/29/22 11/29/22 07:55 07:55 07:55 WBC 28.1 H RBC 3.91 L Hgb 10.9 L Hct 33.8 L MCV 86.4 MCH 27.9 MCHC 32.2 RDW 16.4 H Plt Count 174 MPV 10.1 Immature Gran % (Auto) Neut % (Auto) Lymph % (Auto) Armstrong % (Auto) Eos % (Auto) Baso % (Auto) Lymph # (Auto) Armstrong # (Auto) Eos # (Auto) Baso # (Auto) Abs Immat Gran (auto) Absolute Neuts (auto) Absolute Nucleated RBC 0.080 H Nucleated RBC % (auto) 0.3 H Neutrophils % (Manual) Band Neutrophils % Lymphocytes % (Manual) Atypical Lymphs % (Man) Monocytes % (Manual) Metamyelocytes % Myelocytes % Promyelocytes % Abs Neuts (Manual) Lymphocytes # (Manual) Atyp Lymphs # (Manual) Monocytes # (Manual) Metamyelocytes # Myelocytes # Promyelocytes # Smudge Cells Toxic Vacuolation Platelet Estimate Plt Morphology Comment RBC Morphology Polychromasia Hypochromasia Macrocytosis Spherocytes Target Cells Smear Path Review PT INR APTT D-Dimer High Sensitivty O2 Saturation ABG pH at Pt Temp ABG pCO2 at Pt Temp ABG pO2 at Pt Temp ABG HCO3 ABG Base Excess (Actual) VBG pH VBG pCO2 VBG pO2 VBG HCO3 VBG O2 Saturation VBG Base Excess Sodium 138 Potassium 4.5 Chloride 101 Carbon Dioxide 28 Anion Gap 14 BUN 31 H Creatinine 0.87 Estim Creat Clear Calc 144.4 Estimated GFR > 60 POC Glucose Random Glucose 112 Lactic Acid Lactic Acid F/U @ 2Hr Lactic Acid F/U @ 4Hr Calcium 8.2 L Phosphorus Magnesium Total Bilirubin AST ALT Alkaline Phosphatase Lactate Dehydrogenase Troponin I High Sens B-Natriuretic Peptide Total Protein Albumin Procalcitonin Urine Color Urine Appearance Urine pH Ur Specific [place] Urine Protein Urine Glucose (UA) Urine Ketones Urine Blood Urine Nitrite Ur Leukocyte Esterase Urine RBC Urine WBC Ur Squamous Epith Cells Urine Bacteria Hyaline Casts Granular Casts Pleural WBC Pleural RBC Pleural Neutrophils Pleural Monocytes Pleural Total Protein Pleural Albumin Pleural LDH Pleural Glucose Pleural Amylase Nasal Screen MRSA (PCR) Nasal S. aureus Screen Nasal MRSA/S.aureus Interp Vancomycin Trough Random Vancomycin Urine Opiates Screen Urine Fentanyl Screen Ur Barbiturates Screen Ur Phencyclidine Scrn Ur Amphetamines Screen U Benzodiazepines Scrn Urine Cocaine Screen U Marijuana (THC) Screen HIV 1&2 Ab/P24 Ag 4thGn Influenza Type A (PCR) Influenza Type B (PCR) Ur L.pneumophila Ag RSV RNA Qual (PCR) SARS-CoV-2 RNA (RT-PCR) Ur Strep pneumoniae Ag TB Test (T-Spot) Com Negative TB Test Nil Control Passed TB Test Panel A 0 TB Test Panel B 0 TB Test Positive Cntrl Passed 11/30/22 11/30/22 11/30/22 01:48 09:49 16:45 WBC RBC Hgb Hct MCV MCH MCHC RDW Plt Count MPV Immature Gran % (Auto) Neut % (Auto) Lymph % (Auto) Armstrong % (Auto) Eos % (Auto) Baso % (Auto) Lymph # (Auto) Armstrong # (Auto) Eos # (Auto) Baso # (Auto) Abs Immat Gran (auto) Absolute Neuts (auto) Absolute Nucleated RBC Nucleated RBC % (auto) Neutrophils % (Manual) Band Neutrophils % Lymphocytes % (Manual) Atypical Lymphs % (Man) Monocytes % (Manual) Metamyelocytes % Myelocytes % Promyelocytes % Abs Neuts (Manual) Lymphocytes # (Manual) Atyp Lymphs # (Manual) Monocytes # (Manual) Metamyelocytes # Myelocytes # Promyelocytes # Smudge Cells Toxic Vacuolation Platelet Estimate Plt Morphology Comment RBC Morphology Polychromasia Hypochromasia Macrocytosis Spherocytes Target Cells Smear Path Review PT 15.4 H INR 1.3 H APTT D-Dimer High Sensitivty O2 Saturation 93.0 ABG pH at Pt Temp 7.36 ABG pCO2 at Pt Temp 54 H ABG pO2 at Pt Temp 70 L ABG HCO3 31 H ABG Base Excess (Actual) 4.3 VBG pH VBG pCO2 VBG pO2 VBG HCO3 VBG O2 Saturation VBG Base Excess Sodium Potassium Chloride Carbon Dioxide Anion Gap BUN Creatinine Estim Creat Clear Calc Estimated GFR POC Glucose 155 H Random Glucose Lactic Acid Lactic Acid F/U @ 2Hr Lactic Acid F/U @ 4Hr Calcium Phosphorus Magnesium Total Bilirubin AST ALT Alkaline Phosphatase Lactate Dehydrogenase Troponin I High Sens B-Natriuretic Peptide Total Protein Albumin Procalcitonin Urine Color Urine Appearance Urine pH Ur Specific [place] Urine Protein Urine Glucose (UA) Urine Ketones Urine Blood Urine Nitrite Ur Leukocyte Esterase Urine RBC Urine WBC Ur Squamous Epith Cells Urine Bacteria Hyaline Casts Granular Casts Pleural WBC Pleural RBC Pleural Neutrophils Pleural Monocytes Pleural Total Protein Pleural Albumin Pleural LDH Pleural Glucose Pleural Amylase Nasal Screen MRSA (PCR) Nasal S. aureus Screen Nasal MRSA/S.aureus Interp Vancomycin Trough Random Vancomycin Urine Opiates Screen Urine Fentanyl Screen Ur Barbiturates Screen Ur Phencyclidine Scrn Ur Amphetamines Screen U Benzodiazepines Scrn Urine Cocaine Screen U Marijuana (THC) Screen HIV 1&2 Ab/P24 Ag 4thGn Influenza Type A (PCR) Influenza Type B (PCR) Ur L.pneumophila Ag RSV RNA Qual (PCR) SARS-CoV-2 RNA (RT-PCR) Ur Strep pneumoniae Ag TB Test (T-Spot) Com TB Test Nil Control TB Test Panel A TB Test Panel B TB Test Positive Cntrl 11/30/22 11/30/22 11/30/22 16:45 18:30 18:30 WBC RBC Hgb Hct MCV MCH MCHC RDW Plt Count MPV Immature Gran % (Auto) Neut % (Auto) Lymph % (Auto) Armstrong % (Auto) Eos % (Auto) Baso % (Auto) Lymph # (Auto) Armstrong # (Auto) Eos # (Auto) Baso # (Auto) Abs Immat Gran (auto) Absolute Neuts (auto) Absolute Nucleated RBC Nucleated RBC % (auto) Neutrophils % (Manual) Band Neutrophils % Lymphocytes % (Manual) Atypical Lymphs % (Man) Monocytes % (Manual) Metamyelocytes % Myelocytes % Promyelocytes % Abs Neuts (Manual) Lymphocytes # (Manual) Atyp Lymphs # (Manual) Monocytes # (Manual) Metamyelocytes # Myelocytes # Promyelocytes # Smudge Cells Toxic Vacuolation Platelet Estimate Plt Morphology Comment RBC Morphology Polychromasia Hypochromasia Macrocytosis Spherocytes Target Cells Smear Path Review PT INR APTT D-Dimer High Sensitivty O2 Saturation ABG pH at Pt Temp ABG pCO2 at Pt Temp ABG pO2 at Pt Temp ABG HCO3 ABG Base Excess (Actual) VBG pH VBG pCO2 VBG pO2 VBG HCO3 VBG O2 Saturation VBG Base Excess Sodium Potassium Chloride Carbon Dioxide Anion Gap BUN Creatinine Estim Creat Clear Calc Estimated GFR POC Glucose Random Glucose Lactic Acid Lactic Acid F/U @ 2Hr Lactic Acid F/U @ 4Hr Calcium Phosphorus Magnesium Total Bilirubin AST ALT Alkaline Phosphatase Lactate Dehydrogenase 400 H Troponin I High Sens B-Natriuretic Peptide Total Protein 6.5 Albumin 2.2 L Procalcitonin Urine Color Urine Appearance Urine pH Ur Specific [place] Urine Protein Urine Glucose (UA) Urine Ketones Urine Blood Urine Nitrite Ur Leukocyte Esterase Urine RBC Urine WBC Ur Squamous Epith Cells Urine Bacteria Hyaline Casts Granular Casts Pleural WBC Pleural RBC Pleural Neutrophils Pleural Monocytes Pleural Total Protein Pleural Albumin 1.8 Pleural LDH Pleural Glucose Pleural Amylase 16 Nasal Screen MRSA (PCR) Nasal S. aureus Screen Nasal MRSA/S.aureus Interp Vancomycin Trough Random Vancomycin Urine Opiates Screen Urine Fentanyl Screen Ur Barbiturates Screen Ur Phencyclidine Scrn Ur Amphetamines Screen U Benzodiazepines Scrn Urine Cocaine Screen U Marijuana (THC) Screen HIV 1&2 Ab/P24 Ag 4thGn Influenza Type A (PCR) Influenza Type B (PCR) Ur L.pneumophila Ag RSV RNA Qual (PCR) SARS-CoV-2 RNA (RT-PCR) Ur Strep pneumoniae Ag TB Test (T-Spot) Com TB Test Nil Control TB Test Panel A TB Test Panel B TB Test Positive Cntrl 11/30/22 11/30/22 11/30/22 18:30 18:30 18:30 WBC RBC Hgb Hct MCV MCH MCHC RDW Plt Count MPV Immature Gran % (Auto) Neut % (Auto) Lymph % (Auto) Armstrong % (Auto) Eos % (Auto) Baso % (Auto) Lymph # (Auto) Armstrong # (Auto) Eos # (Auto) Baso # (Auto) Abs Immat Gran (auto) Absolute Neuts (auto) Absolute Nucleated RBC Nucleated RBC % (auto) Neutrophils % (Manual) Band Neutrophils % Lymphocytes % (Manual) Atypical Lymphs % (Man) Monocytes % (Manual) Metamyelocytes % Myelocytes % Promyelocytes % Abs Neuts (Manual) Lymphocytes # (Manual) Atyp Lymphs # (Manual) Monocytes # (Manual) Metamyelocytes # Myelocytes # Promyelocytes # Smudge Cells Toxic Vacuolation Platelet Estimate Plt Morphology Comment RBC Morphology Polychromasia Hypochromasia Macrocytosis Spherocytes Target Cells Smear Path Review PT INR APTT D-Dimer High Sensitivty O2 Saturation ABG pH at Pt Temp ABG pCO2 at Pt Temp ABG pO2 at Pt Temp ABG HCO3 ABG Base Excess (Actual) VBG pH VBG pCO2 VBG pO2 VBG HCO3 VBG O2 Saturation VBG Base Excess Sodium Potassium Chloride Carbon Dioxide Anion Gap BUN Creatinine Estim Creat Clear Calc Estimated GFR POC Glucose Random Glucose Lactic Acid Lactic Acid F/U @ 2Hr Lactic Acid F/U @ 4Hr Calcium Phosphorus Magnesium Total Bilirubin AST ALT Alkaline Phosphatase Lactate Dehydrogenase Troponin I High Sens B-Natriuretic Peptide Total Protein Albumin Procalcitonin Urine Color Urine Appearance Urine pH Ur Specific [place] Urine Protein Urine Glucose (UA) Urine Ketones Urine Blood Urine Nitrite Ur Leukocyte Esterase Urine RBC Urine WBC Ur Squamous Epith Cells Urine Bacteria Hyaline Casts Granular Casts Pleural WBC 3.191 Pleural RBC 0.003 Pleural Neutrophils 96 Pleural Monocytes 4 Pleural Total Protein Pleural Albumin Pleural LDH 1267 Pleural Glucose 69 Pleural Amylase Nasal Screen MRSA (PCR) Nasal S. aureus Screen Nasal MRSA/S.aureus Interp Vancomycin Trough Random Vancomycin Urine Opiates Screen Urine Fentanyl Screen Ur Barbiturates Screen Ur Phencyclidine Scrn Ur Amphetamines Screen U Benzodiazepines Scrn Urine Cocaine Screen U Marijuana (THC) Screen HIV 1&2 Ab/P24 Ag 4thGn Influenza Type A (PCR) Influenza Type B (PCR) Ur L.pneumophila Ag RSV RNA Qual (PCR) SARS-CoV-2 RNA (RT-PCR) Ur Strep pneumoniae Ag TB Test (T-Spot) Com TB Test Nil Control TB Test Panel A TB Test Panel B TB Test Positive Cntrl 11/30/22 12/01/22 12/01/22 18:30 04:59 05:02 WBC 28.0 H RBC 3.80 L Hgb 10.6 L Hct 32.4 L MCV 85.3 MCH 27.9 MCHC 32.7 RDW 16.3 H Plt Count 114 L D MPV 10.3 Immature Gran % (Auto) Cancelled Neut % (Auto) Cancelled Lymph % (Auto) Cancelled Armstrong % (Auto) Cancelled Eos % (Auto) Cancelled Baso % (Auto) Cancelled Lymph # (Auto) Cancelled Armstrong # (Auto) Cancelled Eos # (Auto) Cancelled Baso # (Auto) Cancelled Abs Immat Gran (auto) Cancelled Absolute Neuts (auto) Cancelled Absolute Nucleated RBC 0.040 H Nucleated RBC % (auto) 0.1 Neutrophils % (Manual) 72 Band Neutrophils % 10 H Lymphocytes % (Manual) 8 L Atypical Lymphs % (Man) 1 Monocytes % (Manual) 5 Metamyelocytes % Myelocytes % 3 Promyelocytes % 1 Abs Neuts (Manual) 23.0 H Lymphocytes # (Manual) 2.2 Atyp Lymphs # (Manual) 0.3 Monocytes # (Manual) 1.4 H Metamyelocytes # Myelocytes # 0.8 Promyelocytes # 0.3 Smudge Cells PRESENT Toxic Vacuolation PRESENT Platelet Estimate SLIGHTLY DECREASED Plt Morphology Comment NORMAL RBC Morphology NOTED Polychromasia 1+ (0-2) Hypochromasia Macrocytosis 1+ (5-14) Spherocytes Target Cells 1+ (5-14) Smear Path Review PT INR APTT D-Dimer High Sensitivty O2 Saturation ABG pH at Pt Temp ABG pCO2 at Pt Temp ABG pO2 at Pt Temp ABG HCO3 ABG Base Excess (Actual) VBG pH 7.49 H VBG pCO2 43 VBG pO2 60 VBG HCO3 33 H VBG O2 Saturation 90.0 VBG Base Excess 9.1 Sodium Potassium Chloride Carbon Dioxide Anion Gap BUN Creatinine Estim Creat Clear Calc Estimated GFR POC Glucose Random Glucose Lactic Acid Lactic Acid F/U @ 2Hr Lactic Acid F/U @ 4Hr Calcium Phosphorus Magnesium Total Bilirubin AST ALT Alkaline Phosphatase Lactate Dehydrogenase Troponin I High Sens B-Natriuretic Peptide Total Protein Albumin Procalcitonin Urine Color Urine Appearance Urine pH Ur Specific [place] Urine Protein Urine Glucose (UA) Urine Ketones Urine Blood Urine Nitrite Ur Leukocyte Esterase Urine RBC Urine WBC Ur Squamous Epith Cells Urine Bacteria Hyaline Casts Granular Casts Pleural WBC Pleural RBC Pleural Neutrophils Pleural Monocytes Pleural Total Protein 4.3 Pleural Albumin Pleural LDH Pleural Glucose Pleural Amylase Nasal Screen MRSA (PCR) Nasal S. aureus Screen Nasal MRSA/S.aureus Interp Vancomycin Trough Random Vancomycin Urine Opiates Screen Urine Fentanyl Screen Ur Barbiturates Screen Ur Phencyclidine Scrn Ur Amphetamines Screen U Benzodiazepines Scrn Urine Cocaine Screen U Marijuana (THC) Screen HIV 1&2 Ab/P24 Ag 4thGn Influenza Type A (PCR) Influenza Type B (PCR) Ur L.pneumophila Ag RSV RNA Qual (PCR) SARS-CoV-2 RNA (RT-PCR) Ur Strep pneumoniae Ag TB Test (T-Spot) Com TB Test Nil Control TB Test Panel A TB Test Panel B TB Test Positive Cntrl 12/01/22 12/01/22 12/02/22 05:02 05:02 07:21 WBC RBC Hgb Hct MCV MCH MCHC RDW Plt Count MPV Immature Gran % (Auto) Neut % (Auto) Lymph % (Auto) Armstrong % (Auto) Eos % (Auto) Baso % (Auto) Lymph # (Auto) Armstrong # (Auto) Eos # (Auto) Baso # (Auto) Abs Immat Gran (auto) Absolute Neuts (auto) Absolute Nucleated RBC Nucleated RBC % (auto) Neutrophils % (Manual) Band Neutrophils % Lymphocytes % (Manual) Atypical Lymphs % (Man) Monocytes % (Manual) Metamyelocytes % Myelocytes % Promyelocytes % Abs Neuts (Manual) Lymphocytes # (Manual) Atyp Lymphs # (Manual) Monocytes # (Manual) Metamyelocytes # Myelocytes # Promyelocytes # Smudge Cells Toxic Vacuolation Platelet Estimate Plt Morphology Comment RBC Morphology Polychromasia Hypochromasia Macrocytosis Spherocytes Target Cells Smear Path Review PT 16.0 H INR 1.4 H APTT D-Dimer High Sensitivty O2 Saturation ABG pH at Pt Temp ABG pCO2 at Pt Temp ABG pO2 at Pt Temp ABG HCO3 ABG Base Excess (Actual) VBG pH VBG pCO2 VBG pO2 VBG HCO3 VBG O2 Saturation VBG Base Excess Sodium 135 137 Potassium 5.1 5.1 Chloride 99 102 Carbon Dioxide 29 29 Anion Gap 12 11 L BUN 19 H 16 Creatinine 0.69 0.63 Estim Creat Clear Calc 182.1 199.5 Estimated GFR > 60 > 60 POC Glucose Random Glucose 113 125 H Lactic Acid Lactic Acid F/U @ 2Hr Lactic Acid F/U @ 4Hr Calcium 8.0 L 8.1 L Phosphorus 3.5 4.3 Magnesium 2.2 2.1 Total Bilirubin 1.0 AST 22 ALT 8 Alkaline Phosphatase 83 Lactate Dehydrogenase Troponin I High Sens B-Natriuretic Peptide Total Protein 6.1 L Albumin 1.9 L 1.8 L Procalcitonin Urine Color Urine Appearance Urine pH Ur Specific [place] Urine Protein Urine Glucose (UA) Urine Ketones Urine Blood Urine Nitrite Ur Leukocyte Esterase Urine RBC Urine WBC Ur Squamous Epith Cells Urine Bacteria Hyaline Casts Granular Casts Pleural WBC Pleural RBC Pleural Neutrophils Pleural Monocytes Pleural Total Protein Pleural Albumin Pleural LDH Pleural Glucose Pleural Amylase Nasal Screen MRSA (PCR) Nasal S. aureus Screen Nasal MRSA/S.aureus Interp Vancomycin Trough Random Vancomycin Urine Opiates Screen Urine Fentanyl Screen Ur Barbiturates Screen Ur Phencyclidine Scrn Ur Amphetamines Screen U Benzodiazepines Scrn Urine Cocaine Screen U Marijuana (THC) Screen HIV 1&2 Ab/P24 Ag 4thGn Influenza Type A (PCR) Influenza Type B (PCR) Ur L.pneumophila Ag RSV RNA Qual (PCR) SARS-CoV-2 RNA (RT-PCR) Ur Strep pneumoniae Ag TB Test (T-Spot) Com TB Test Nil Control TB Test Panel A TB Test Panel B TB Test Positive Cntrl 12/02/22 12/02/22 12/02/22 07:21 07:24 08:52 WBC 23.5 H RBC 3.71 L Hgb 10.2 L Hct 31.6 L MCV 85.2 MCH 27.5 MCHC 32.3 RDW 16.6 H Plt Count 97 L MPV 9.5 Immature Gran % (Auto) Cancelled Neut % (Auto) Cancelled Lymph % (Auto) Cancelled Armstrong % (Auto) Cancelled Eos % (Auto) Cancelled Baso % (Auto) Cancelled Lymph # (Auto) Cancelled Armstrong # (Auto) Cancelled Eos # (Auto) Cancelled Baso # (Auto) Cancelled Abs Immat Gran (auto) Cancelled Absolute Neuts (auto) Cancelled Absolute Nucleated RBC 0.020 H Nucleated RBC % (auto) 0.1 Neutrophils % (Manual) 72 Band Neutrophils % 11 H Lymphocytes % (Manual) 6 L Atypical Lymphs % (Man) Monocytes % (Manual) 5 Metamyelocytes % Myelocytes % 5 Promyelocytes % 1 Abs Neuts (Manual) 19.5 H Lymphocytes # (Manual) 1.4 Atyp Lymphs # (Manual) Monocytes # (Manual) 1.2 Metamyelocytes # Myelocytes # 1.2 Promyelocytes # 0.2 Smudge Cells Toxic Vacuolation Platelet Estimate DECREASED Plt Morphology Comment NORMAL RBC Morphology NOTED Polychromasia Hypochromasia 1+ (5-14) Macrocytosis Spherocytes 1+ (0-2) Target Cells 1+ (5-14) Smear Path Review PT INR APTT D-Dimer High Sensitivty O2 Saturation ABG pH at Pt Temp ABG pCO2 at Pt Temp ABG pO2 at Pt Temp ABG HCO3 ABG Base Excess (Actual) VBG pH 7.37 VBG pCO2 63 VBG pO2 183 VBG HCO3 37 H VBG O2 Saturation 100.0 VBG Base Excess 10.0 Sodium Potassium Chloride Carbon Dioxide Anion Gap BUN Creatinine 0.67 Estim Creat Clear Calc 187.5 Estimated GFR > 60 POC Glucose Random Glucose Lactic Acid Lactic Acid F/U @ 2Hr Lactic Acid F/U @ 4Hr Calcium Phosphorus Magnesium Total Bilirubin AST ALT Alkaline Phosphatase Lactate Dehydrogenase Troponin I High Sens B-Natriuretic Peptide Total Protein Albumin Procalcitonin Urine Color Urine Appearance Urine pH Ur Specific [place] Urine Protein Urine Glucose (UA) Urine Ketones Urine Blood Urine Nitrite Ur Leukocyte Esterase Urine RBC Urine WBC Ur Squamous Epith Cells Urine Bacteria Hyaline Casts Granular Casts Pleural WBC Pleural RBC Pleural Neutrophils Pleural Monocytes Pleural Total Protein Pleural Albumin Pleural LDH Pleural Glucose Pleural Amylase Nasal Screen MRSA (PCR) Nasal S. aureus Screen Nasal MRSA/S.aureus Interp Vancomycin Trough Random Vancomycin Urine Opiates Screen Urine Fentanyl Screen Ur Barbiturates Screen Ur Phencyclidine Scrn Ur Amphetamines Screen U Benzodiazepines Scrn Urine Cocaine Screen U Marijuana (THC) Screen HIV 1&2 Ab/P24 Ag 4thGn Influenza Type A (PCR) Influenza Type B (PCR) Ur L.pneumophila Ag RSV RNA Qual (PCR) SARS-CoV-2 RNA (RT-PCR) Ur Strep pneumoniae Ag TB Test (T-Spot) Com TB Test Nil Control TB Test Panel A TB Test Panel B TB Test Positive Cntrl 12/02/22 12/03/22 12/03/22 20:52 06:27 06:27 WBC 19.7 H RBC 3.69 L Hgb 10.3 L Hct 31.5 L MCV 85.4 MCH 27.9 MCHC 32.7 RDW 16.6 H Plt Count 103 L MPV 10.9 Immature Gran % (Auto) Cancelled Neut % (Auto) Cancelled Lymph % (Auto) Cancelled Armstrong % (Auto) Cancelled Eos % (Auto) Cancelled Baso % (Auto) Cancelled Lymph # (Auto) Cancelled Armstrong # (Auto) Cancelled Eos # (Auto) Cancelled Baso # (Auto) Cancelled Abs Immat Gran (auto) Cancelled Absolute Neuts (auto) Cancelled Absolute Nucleated RBC 0.020 H Nucleated RBC % (auto) 0.1 Neutrophils % (Manual) 66 Band Neutrophils % 5 Lymphocytes % (Manual) 15 L Atypical Lymphs % (Man) Monocytes % (Manual) 8 Metamyelocytes % 2 Myelocytes % 4 Promyelocytes % Abs Neuts (Manual) 14.0 H Lymphocytes # (Manual) 3.0 Atyp Lymphs # (Manual) Monocytes # (Manual) 1.6 H Metamyelocytes # 0.4 Myelocytes # 0.8 Promyelocytes # Smudge Cells Toxic Vacuolation Platelet Estimate SLIGHTLY DECREASED Plt Morphology Comment NORMAL RBC Morphology NORMAL Polychromasia 1+ (0-2) Hypochromasia Macrocytosis Spherocytes Target Cells 1+ (5-14) Smear Path Review PT INR APTT D-Dimer High Sensitivty O2 Saturation ABG pH at Pt Temp ABG pCO2 at Pt Temp ABG pO2 at Pt Temp ABG HCO3 ABG Base Excess (Actual) VBG pH VBG pCO2 VBG pO2 VBG HCO3 VBG O2 Saturation VBG Base Excess Sodium Potassium Chloride Carbon Dioxide Anion Gap BUN Creatinine 0.56 Estim Creat Clear Calc 224.4 Estimated GFR > 60 POC Glucose Random Glucose Lactic Acid Lactic Acid F/U @ 2Hr Lactic Acid F/U @ 4Hr Calcium Phosphorus Magnesium Total Bilirubin AST ALT Alkaline Phosphatase Lactate Dehydrogenase Troponin I High Sens B-Natriuretic Peptide Total Protein Albumin Procalcitonin Urine Color Urine Appearance Urine pH Ur Specific [place] Urine Protein Urine Glucose (UA) Urine Ketones Urine Blood Urine Nitrite Ur Leukocyte Esterase Urine RBC Urine WBC Ur Squamous Epith Cells Urine Bacteria Hyaline Casts Granular Casts Pleural WBC Pleural RBC Pleural Neutrophils Pleural Monocytes Pleural Total Protein Pleural Albumin Pleural LDH Pleural Glucose Pleural Amylase Nasal Screen MRSA (PCR) Nasal S. aureus Screen Nasal MRSA/S.aureus Interp Vancomycin Trough 8.4 L Random Vancomycin Urine Opiates Screen Urine Fentanyl Screen Ur Barbiturates Screen Ur Phencyclidine Scrn Ur Amphetamines Screen U Benzodiazepines Scrn Urine Cocaine Screen U Marijuana (THC) Screen HIV 1&2 Ab/P24 Ag 4thGn Influenza Type A (PCR) Influenza Type B (PCR) Ur L.pneumophila Ag RSV RNA Qual (PCR) SARS-CoV-2 RNA (RT-PCR) Ur Strep pneumoniae Ag TB Test (T-Spot) Com TB Test Nil Control TB Test Panel A TB Test Panel B TB Test Positive Cntrl 12/03/22 12/04/22 12/04/22 21:01 06:49 06:49 WBC 15.7 H RBC 3.37 L Hgb 9.3 L Hct 28.2 L MCV 83.7 MCH 27.6 MCHC 33.0 RDW 16.0 Plt Count 102 L MPV 9.5 Immature Gran % (Auto) Cancelled Neut % (Auto) Cancelled Lymph % (Auto) Cancelled Armstrong % (Auto) Cancelled Eos % (Auto) Cancelled Baso % (Auto) Cancelled Lymph # (Auto) Cancelled Armstrong # (Auto) Cancelled Eos # (Auto) Cancelled Baso # (Auto) Cancelled Abs Immat Gran (auto) Cancelled Absolute Neuts (auto) Cancelled Absolute Nucleated RBC 0.000 Nucleated RBC % (auto) 0.0 Neutrophils % (Manual) 80 H Band Neutrophils % 4 Lymphocytes % (Manual) 5 L Atypical Lymphs % (Man) Monocytes % (Manual) 10 Metamyelocytes % Myelocytes % 1 Promyelocytes % Abs Neuts (Manual) 13.2 H Lymphocytes # (Manual) 0.8 L Atyp Lymphs # (Manual) Monocytes # (Manual) 1.6 H Metamyelocytes # Myelocytes # 0.2 Promyelocytes # Smudge Cells Toxic Vacuolation Platelet Estimate SLIGHTLY DECREASED Plt Morphology Comment NORM RBC Morphology NOTED Polychromasia Hypochromasia 1+ (5-14) Macrocytosis Spherocytes Target Cells 1+ (5-14) Smear Path Review PT INR APTT D-Dimer High Sensitivty O2 Saturation ABG pH at Pt Temp ABG pCO2 at Pt Temp ABG pO2 at Pt Temp ABG HCO3 ABG Base Excess (Actual) VBG pH VBG pCO2 VBG pO2 VBG HCO3 VBG O2 Saturation VBG Base Excess Sodium Potassium Chloride Carbon Dioxide Anion Gap BUN Creatinine 0.59 Estim Creat Clear Calc 213.0 Estimated GFR > 60 POC Glucose Random Glucose Lactic Acid Lactic Acid F/U @ 2Hr Lactic Acid F/U @ 4Hr Calcium Phosphorus Magnesium Total Bilirubin AST ALT Alkaline Phosphatase Lactate Dehydrogenase Troponin I High Sens B-Natriuretic Peptide Total Protein Albumin Procalcitonin Urine Color Urine Appearance Urine pH Ur Specific [place] Urine Protein Urine Glucose (UA) Urine Ketones Urine Blood Urine Nitrite Ur Leukocyte Esterase Urine RBC Urine WBC Ur Squamous Epith Cells Urine Bacteria Hyaline Casts Granular Casts Pleural WBC Pleural RBC Pleural Neutrophils Pleural Monocytes Pleural Total Protein Pleural Albumin Pleural LDH Pleural Glucose Pleural Amylase Nasal Screen MRSA (PCR) Nasal S. aureus Screen Nasal MRSA/S.aureus Interp Vancomycin Trough Random Vancomycin 10.9 L Urine Opiates Screen Urine Fentanyl Screen Ur Barbiturates Screen Ur Phencyclidine Scrn Ur Amphetamines Screen U Benzodiazepines Scrn Urine Cocaine Screen U Marijuana (THC) Screen HIV 1&2 Ab/P24 Ag 4thGn Influenza Type A (PCR) Influenza Type B (PCR) Ur L.pneumophila Ag RSV RNA Qual (PCR) SARS-CoV-2 RNA (RT-PCR) Ur Strep pneumoniae Ag TB Test (T-Spot) Com TB Test Nil Control TB Test Panel A TB Test Panel B TB Test Positive Cntrl 12/04/22 12/05/22 12/05/22 21:17 07:00 07:00 WBC RBC Hgb Hct MCV MCH MCHC RDW Plt Count MPV Immature Gran % (Auto) Neut % (Auto) Lymph % (Auto) Armstrong % (Auto) Eos % (Auto) Baso % (Auto) Lymph # (Auto) Armstrong # (Auto) Eos # (Auto) Baso # (Auto) Abs Immat Gran (auto) Absolute Neuts (auto) Absolute Nucleated RBC Nucleated RBC % (auto) Neutrophils % (Manual) Band Neutrophils % Lymphocytes % (Manual) Atypical Lymphs % (Man) Monocytes % (Manual) Metamyelocytes % Myelocytes % Promyelocytes % Abs Neuts (Manual) Lymphocytes # (Manual) Atyp Lymphs # (Manual) Monocytes # (Manual) Metamyelocytes # Myelocytes # Promyelocytes # Smudge Cells Toxic Vacuolation Platelet Estimate Plt Morphology Comment RBC Morphology Polychromasia Hypochromasia Macrocytosis Spherocytes Target Cells Smear Path Review PT 17.7 H INR 1.5 H APTT D-Dimer High Sensitivty O2 Saturation ABG pH at Pt Temp ABG pCO2 at Pt Temp ABG pO2 at Pt Temp ABG HCO3 ABG Base Excess (Actual) VBG pH VBG pCO2 VBG pO2 VBG HCO3 VBG O2 Saturation VBG Base Excess Sodium Potassium Chloride Carbon Dioxide Anion Gap BUN Creatinine 0.57 Estim Creat Clear Calc 220.5 Estimated GFR > 60 POC Glucose Random Glucose Lactic Acid Lactic Acid F/U @ 2Hr Lactic Acid F/U @ 4Hr Calcium Phosphorus Magnesium Total Bilirubin AST ALT Alkaline Phosphatase Lactate Dehydrogenase Troponin I High Sens B-Natriuretic Peptide Total Protein Albumin Procalcitonin Urine Color Urine Appearance Urine pH Ur Specific [place] Urine Protein Urine Glucose (UA) Urine Ketones Urine Blood Urine Nitrite Ur Leukocyte Esterase Urine RBC Urine WBC Ur Squamous Epith Cells Urine Bacteria Hyaline Casts Granular Casts Pleural WBC Pleural RBC Pleural Neutrophils Pleural Monocytes Pleural Total Protein Pleural Albumin Pleural LDH Pleural Glucose Pleural Amylase Nasal Screen MRSA (PCR) Nasal S. aureus Screen Nasal MRSA/S.aureus Interp Vancomycin Trough Random Vancomycin 11.9 L Urine Opiates Screen Urine Fentanyl Screen Ur Barbiturates Screen Ur Phencyclidine Scrn Ur Amphetamines Screen U Benzodiazepines Scrn Urine Cocaine Screen U Marijuana (THC) Screen HIV 1&2 Ab/P24 Ag 4thGn Influenza Type A (PCR) Influenza Type B (PCR) Ur L.pneumophila Ag RSV RNA Qual (PCR) SARS-CoV-2 RNA (RT-PCR) Ur Strep pneumoniae Ag TB Test (T-Spot) Com TB Test Nil Control TB Test Panel A TB Test Panel B TB Test Positive [facility] 12/05/22 08:49 WBC 17.2 H RBC 3.32 L Hgb 9.1 L Hct 28.0 L MCV 84.3 MCH 27.4 MCHC 32.5 RDW 16.2 H Plt Count 142 L D MPV 10.2 Immature Gran % (Auto) Neut % (Auto) Lymph % (Auto) Armstrong % (Auto) Eos % (Auto) Baso % (Auto) Lymph # (Auto) Armstrong # (Auto) Eos # (Auto) Baso # (Auto) Abs Immat Gran (auto) Absolute Neuts (auto) Absolute Nucleated RBC 0.020 H Nucleated RBC % (auto) 0.1 Neutrophils % (Manual) Band Neutrophils % Lymphocytes % (Manual) Atypical Lymphs % (Man) Monocytes % (Manual) Metamyelocytes % Myelocytes % Promyelocytes % Abs Neuts (Manual) Lymphocytes # (Manual) Atyp Lymphs # (Manual) Monocytes # (Manual) Metamyelocytes # Myelocytes # Promyelocytes # Smudge Cells Toxic Vacuolation Platelet Estimate Plt Morphology Comment RBC Morphology Polychromasia Hypochromasia Macrocytosis Spherocytes Target Cells Smear Path Review PT INR APTT D-Dimer High Sensitivty O2 Saturation ABG pH at Pt Temp ABG pCO2 at Pt Temp ABG pO2 at Pt Temp ABG HCO3 ABG Base Excess (Actual) VBG pH VBG pCO2 VBG pO2 VBG HCO3 VBG O2 Saturation VBG Base Excess Sodium Potassium Chloride Carbon Dioxide Anion Gap BUN Creatinine Estim Creat Clear Calc Estimated GFR POC Glucose Random Glucose Lactic Acid Lactic Acid F/U @ 2Hr Lactic Acid F/U @ 4Hr Calcium Phosphorus Magnesium Total Bilirubin AST ALT Alkaline Phosphatase Lactate Dehydrogenase Troponin I High Sens B-Natriuretic Peptide Total Protein Albumin Procalcitonin Urine Color Urine Appearance Urine pH Ur Specific [place] Urine Protein Urine Glucose (UA) Urine Ketones Urine Blood Urine Nitrite Ur Leukocyte Esterase Urine RBC Urine WBC Ur Squamous Epith Cells Urine Bacteria Hyaline Casts Granular Casts Pleural WBC Pleural RBC Pleural Neutrophils Pleural Monocytes Pleural Total Protein Pleural Albumin Pleural LDH Pleural Glucose Pleural Amylase Nasal Screen MRSA (PCR) Nasal S. aureus Screen Nasal MRSA/S.aureus Interp Vancomycin Trough Random Vancomycin Urine Opiates Screen Urine Fentanyl Screen Ur Barbiturates Screen Ur Phencyclidine Scrn Ur Amphetamines Screen U Benzodiazepines Scrn Urine Cocaine Screen U Marijuana (THC) Screen HIV 1&2 Ab/P24 Ag 4thGn Influenza Type A (PCR) Influenza Type B (PCR) Ur L.pneumophila Ag RSV RNA Qual (PCR) SARS-CoV-2 RNA (RT-PCR) Ur Strep pneumoniae Ag TB Test (T-Spot) Com TB Test Nil Control TB Test Panel A TB Test Panel B TB Test Positive Cntrl Airway Mallampati Class: III TM Dist: >3cm Neck ROM: Full Loose/Missing/Broken Teeth: Yes Heart: tacycardiac Lungs: diminished breath sounds Assessment and Plan Assessment Anesthesia Assessment: Anesthesia Plan Discussed and Chart Reviewed Final Anesthetic Review Family History of Problems with Anesthesia: No History of Problems with Anesthesia: No NPO: Yes ASA Class: III and Emergency Final Preanesthetic Review: Meds/Allgs Chart Reviewed, Consent Obtained/Reviewed and Anes Risks/Benef Reviewed Patient Risk: High Procedure Risk: Intermediate Anesthetic Plan Anesthetic Plan: GA Disposition: Inp. Admit - Standard Bed
--- NOTE | 2022-12-05 13:20 | PM.OP ---
Brief Operative Note Date of Service: 12/05/22 Pre-op diagnosis: Pneumonia Post-op diagnosis: same Procedure: Patient brought to the operating room and laryngeal mask airway placed by Anesthesia service. Flexible bronchoscope introduced through the LMA to the level of vocal cords. Vocal cords were anesthetized with 2 cc of 2% lidocaine. Thereafter vocal cords were easily traversed with the flexible bronchoscope and tracheobronchial tree was examined. Right-side essentially normal with no mucus secretion and normal bronchial mucosa. Left-side with small amount of mucus, cleared and sample sent for microbiologic testing, normal mucosa under knees. Lleft-sided airways, particularly left upper lobe, noted to have extrinsic compression. Patient tolerated the procedure well and was returned to the telemetry floor in stable condition. Surgeon: Javier Mcdowell MD Anesthesia: GLMA Was an Surfboard Maker used for this Procedure?: No Estimated blood loss (mL): 0 Condition: stable Disposition: floor
--- NOTE | 2022-12-05 13:59 | MHC.CM.PN ---
Per MD rounds Patient will not discharge today. He is on 2L O2 via NC. He is planned for a Bronch. DP Home with family assist and transport.
--- NOTE | 2022-12-05 15:54 | P.PNTS_ITS ---
Subjective Subjective Date of Service: 12/05/22 Interval history: Mr. Wilkins underwent third dose of TPA on 12/03/22. CT scan on 12/04/22 demonstrated: previously described mediastinal shift to the right resolved. Left apical pneumothorax unchanged. Improved left pleural effusion. Redemonstration of cavitating left upper lobe central mass roughly 7cm. Profound atelectasis and consolidation of left lung. Right lung remain relatively spared except for minimal patchy nodular opacity and/or airspace infiltrate right upper and lower lobes.Prominent mediastinal and left hilar lymph notes. On 12/05/22 he underwent a flexible bronchoscopy by Dr. Mcdowell which demonstrated extrinisic compression of left upper airway. Mucous secretions sent to microbiology. Films reviewed and case discussed with Dr. Wilkinson and recommendations for an additional left chest tube to be placed in the left apex loculated pleural fluid. This was communicated with Dr. Brizuela in IR. Today, pt is sitting upright in bed. He appears more relaxed and interactive today. ROS: He denies fever, chills, nausea, vomiting, abdominal pain, calf pain and headache. states shortness of breath has improved from previously, still complains of pain around chest tube (points to it) and has productive cough. Physical Exam Vital Signs: Vital Signs: Last Vital Signs Temp 97.7 F 12/05/22 07:33 Pulse 116 H 12/05/22 13:31 Resp 22 H 12/05/22 13:31 BP 121/82 12/05/22 13:31 Pulse Ox 92 12/05/22 13:31 O2 Del Method 12/05/22 13:31 O2 Flow Rate 4 12/05/22 13:31 FiO2 80 12/05/22 13:31 BMI result Body Mass Index 32.3 Const: Other: He is alert and orientated to person and place. Appears childlike at times. HEENT: Other: NC/AT, EOMI, sclera non-icteric, and no sinus tenderness. Neck: Other: No JVD Chest: Other: left chest tube in place. No air leak. No crepitus. CT to - 20 mm Hg with 40 cc of serosang drainage in last 24 hours. Resp: Other: right lung field clear. left lung field diminished throughout but no rhonchi or wheezes present. Cardio: Other: regular rhythm GI: Other: abdomen soft nontender and nondistended. : Other: Voiding freely. Skin: Other: No rashes noted. Neuro: Other: grossly intact Extrem: Other: trace peripheral edema Procedures Date of Service Date of Service: 12/05/22 Progress Note: A&P Assessment and plan (1) Sepsis with acute hypoxic respiratory failure: Status: Acute (2) Hydropneumothorax: Status: Acute (3) Cavitary pneumonia: Status: Acute Plan Mr. Wilkins is a 42 year old male with cavitary pneumonia and a large left sided hydropneumothoax. TB being ruled out - remains on precautions. s/p 28Fr chest tube insertion (Dr. Mcdowell) on 11/30/22 s/p chemical decortication (Dr. Mcdowell) on 11/30/22, 12/01/22, and 12/02/22 Left hydropneumothorax and cavitary pneumonia * Bronchial washing from today: Gram stain negative. Cultures pending. * Studies from 11/30: Anerobic pending , AFB and fungal cultures pending. * Exudative process. * Arrangements for left chest tube to be placed tomorrow in apex of loculated left pleural effusion by IR. pt is NPO. Lovenox on hold. * Thoracic Surgery will continue to monitor/manage chest tube. Continue chest tube to -20 mm Hg suction and follow outputs. * Continue chest PT, mucolytcs, and aggressive pulmonary toileting with IS/acapella should be done. pt is pulling 1700 on IS * ID following.? Continue antibiotics: currently on Vanco/Zosyn.?Leukocytosis is holding at 15-17. Images and case reviewed and discussed with Dr. Wilkinson. Time Spent With Patient Time: Total time managing care of this patient today ____ minutes. Quality Stroke Does the patient have a stroke diagnosis?: No VTE Prior VTE?: No VTE Risk Level:: Medical - moderate - high VTE Device Contraindication: Treatment Not Indicated VTE Drug Contraindication: N/A - Med Ordered
[2022-12-05] MEDS: guaiFENesin LA 600 MG TAB.ER.12H 1200 MG PO (20:39)
[2022-12-05] MEDS: Divalproex Sodium 500 MG TABLET.DR 2000 MG PO (20:39)
[2022-12-05] MEDS: Acetaminophen 325 MG TABLET 650 MG PO (20:50)
[2022-12-05 21:39] LABS: Vancomycin Trough 2.3 mcg/mL (10.0-20.0)
--- NOTE | 2022-12-05 21:47 | HE.PHANOTE ---
Vancomycin Dosing addendum Vancomycin Trough 2.3. Patient has not received a vancomycin dose since 0600 this morning, 1500 dose missed. Contacted RN and she believes the dose was not given because patient was off unit for bronchoscopy. Will continue with current regimen
[2022-12-06] VITALS: BP 131/89; PULSE 107; RESP 17; TEMP 37.5; O2SAT 98
[2022-12-06] MEDS: Piperacillin Sodium/Tazobactam 4.5 GM in 0.9 % Sodium Chloride 100 ML IV ×4 (03:09→22:39)
[2022-12-06 03:51] VITALS: BP 135/67; PULSE 95; RESP 17; TEMP 36.8; O2SAT 95
[2022-12-06] MEDS: Acetaminophen 325 MG TABLET 650 MG PO ×3 (05:09→18:16)
[2022-12-06] MEDS: vancomycin HCL 1,500 MG in 0.9 % Sodium Chloride 500 ML 166.67 MG IV (06:12)
[2022-12-06 07:56] VITALS: BP 137/79; PULSE 104; RESP 20; TEMP 36.3; O2SAT 97
[2022-12-06] MEDS: guaiFENesin LA 600 MG TAB.ER.12H 1200 MG PO ×2 (08:12→22:39)
[2022-12-06 08:13] LABS: Creatinine Clr Calc Pharmacy 216.6; Estimated Glomerular Filt Rate > 60
[2022-12-06 11:51] VITALS: BP 129/63; PULSE 81; RESP 20; TEMP 37.5; O2SAT 98
--- NOTE | 2022-12-06 12:09 | HO.POSTANES ---
Post Anesthesia Evaluation Post Anesthesia Evaluation Vital Signs: Vital Signs Temp Pulse Resp BP Pulse Ox O2 Del Method O2 Flow Rate 12/06/22 11:51 99.5 F 81 20 129/63 98 Nasal Cannula 2 12/06/22 07:56 97.3 F 104 H 20 137/79 97 Nasal Cannula 2 12/06/22 03:51 98.2 F 95 17 135/67 95 Nasal Cannula 2 Anesthesia: General Mental Status: Awake Pain Control: Satisfactory Nausea/Vomiting: None Hydration: Adequate Anesthesia-Related Issues: No Anes. Related Issues
[2022-12-06] MEDS: Lidocaine HCl 1 % MPF 30 ML VIAL 10 ML SUBCUT (15:40)
[2022-12-06 16:00] VITALS: BP 137/69; PULSE 93; RESP 20; O2SAT 95
--- NOTE | 2022-12-06 16:24 | PM.IDPN ---
Subjective Subjective Date of Service: 12/06/22 Critical Care Time (minutes): 15 Comment: he still has cavity lung no MRSA or fungus or AFB identified at this time Objective Data Labs 12/05/22 08:49 12/06/22 07:33 Labs: Laboratory Results - last 24 hr 12/05/22 12/06/22 21:08 07:33 Creatinine 0.58 Estim Creat Clear Calc 216.6 Estimated GFR > 60 Vancomycin Trough 2.3 L Microbiology Microbiology Results: Microbiology 11/30/22 18:30 Pleural Fluid Gram Stain - Final 11/30/22 18:30 Pleural Fluid Routine Culture - Final No growth after 2 days 11/30/22 18:30 Pleural Fluid Anaerobic Culture - Final NO GROWTH AFTER 5 DAYS 12/05/22 12:51 Washing - Lt Lung (Pleural) Gram Stain - Final 12/05/22 12:51 Washing - Lt Lung (Pleural) Routine Culture - Preliminary No growth to date. 11/30/22 18:30 Pleural Fluid Fungal Identification - Preliminary No growth to date. 11/28/22 09:33 Sputum - Induced Direct Acid Fast Bacilli Smear - Final 11/26/22 16:13 Blood - Venous Blood Culture - Final No growth after 5 days. 11/26/22 16:13 Blood - Venous Blood Culture - Final No growth after 5 days. 11/28/22 09:33 Sputum - Expectorated Gram Stain - Final 11/28/22 09:33 Sputum - Expectorated Sputum Culture - Final Streptococcus pyogenes (Grp A) Yeast Physical Exam Vital Signs: Vital Signs: Last Vital Signs Temp 99.5 F 12/06/22 11:51 Pulse 81 12/06/22 11:51 Resp 20 12/06/22 11:51 BP 129/63 12/06/22 11:51 Pulse Ox 98 12/06/22 11:51 O2 Del Method 12/06/22 11:51 O2 Flow Rate 2 12/06/22 11:51 FiO2 80 12/05/22 13:31 BMI result Body Mass Index 32.3 Const: General: cooperative Resp: Effort & Inspection: normal respiratory effort Cardio: Rate: regular rate Rhythm: regular rhythm GI: Palpation (GI): nontender Assessment and Plan Assessment and plan (1) Cavitary pneumonia: Problem details: This may be persistent lung abscess Culture and pathology unremarkable so far. Stop Vancomycin Piperacillin/tazobactam for now. Discharge on IV ertapenem unless changes for 3-6 weeks (now day 10 antibiotics). Status: Acute Time Spent With Patient Time: Total time managing care of this patient today ____ minutes.
--- NOTE | 2022-12-06 16:50 | PC.NURSE ---
Received a call from Marcus OSBORN with notification of new orders to place both chest tube to -20cm suction. Orders were placed by the PA. Reported this to Carlyle Cheung RN. Room has only 1 suction set up will connect to a Y-site for suction.
--- NOTE | 2022-12-06 17:58 | P.PNIM_ITS ---
Subjective Subjective Date of Service: 12/06/22 Interval History: f/u on hydropneumothorax, pneumonia s/p chest tube and undergoing chemical decordication, and believed to be suffering from mucus plug Review of Systems oxygen demand improving Has dry cough, denies any shortness of breath or chest pain. Physical Exam Vital Signs: Vital Signs: Last Vital Signs Temp 99.5 F 12/06/22 11:51 Pulse 93 12/06/22 16:00 Resp 20 12/06/22 16:00 BP 137/69 12/06/22 16:00 Pulse Ox 95 12/06/22 16:00 O2 Del Method 12/06/22 16:00 O2 Flow Rate 2 12/06/22 11:51 FiO2 80 12/05/22 13:31 BMI result Body Mass Index 32.3 General: AO X 3, no acute distress Resp:? diminished on right side, right chest tube in place with ample drainage CVS: S1,S2,RRR GI: +BS, NT, no distention Skin: No rash Neuro:? motor grossly intact Psych: appropriate affect Objective Data Active Medications Acetaminophen (Acetaminophen 325 Mg Tablet) 650 mg PO Q6H PRN PRN Reason: Pain, Mild (Pain Scale 1-3) Last Admin: 12/06/22 10:28 Dose: 650 mg Documented By: ALFONZO Bisacodyl (Bisacodyl 5 Mg Tablet.) 5 mg PO BEDTIME [facility] Last Admin: 12/05/22 20:39 Dose: Not Given Documented By: SIDRA Non-Admin Reason: Patient Refused Buprenorphine/Naloxone (Buprenorphine/Naloxone 2/0.5mg Film) 1 film SUBLINGUAL DAILY [facility] Last Admin: 12/06/22 10:08 Dose: Not Given Documented By: ALFONZO Non-Admin Reason: Patient Refused Divalproex Sodium (Divalproex Sodium 500 Mg Tablet.) 2,000 mg PO BEDTIME [facility] Last Admin: 12/05/22 20:39 Dose: 2,000 mg Documented By: SIDRA Docusate Sodium (Docusate Sodium 100 Mg Capsule) 100 mg PO DAILY PRN PRN Reason: Constipation Enoxaparin Sodium (Enoxaparin Sodium 40 Mg/0.4 Ml Syringe) 40 mg SUBCUT Q24H [facility] Last Admin: 12/04/22 19:49 Dose: Not Given Documented By: JOHN Non-Admin Reason: Patient Refused Guaifenesin (Guaifenesin La 600 Mg Tab.Er.12h) 1,200 mg PO BID [facility] Stop: 12/09/22 10:00 Last Admin: 12/06/22 08:12 Dose: 1,200 mg Documented By: ALFONZO Piperacillin Sod/Tazobactam (Sod 4.5 gm/ Sodium Chloride) 100 mls @ 200 mls/hr IV Q6H [facility] Last Infusion: 12/06/22 10:36 Dose: 0 mls/hr Documented By: ALFONZO Sodium Chloride (0.9 % Sodium Chloride Flush 3 Ml Syringe) 3 ml IVFLUSH QSHIFT [facility] Last Admin: 12/06/22 08:12 Dose: Not Given Documented By: ALFONZO Non-Admin Reason: IV Running Labs 12/05/22 08:49 12/06/22 07:33 Labs: Laboratory Results - last 24 hr 12/05/22 12/06/22 21:08 07:33 Estim Creat Clear Calc 216.6 Estimated GFR > 60 Vancomycin Trough 2.3 L Microbiology Microbiology Results: Microbiology 11/30/22 18:30 Gram Stain - Final Pleural Fluid Routine Culture - Final No growth after 2 days Anaerobic Culture - Final NO GROWTH AFTER 5 DAYS 12/05/22 12:51 Gram Stain - Final Washing - Lt Lung (Pleural) Routine Culture - Preliminary No growth to date. Assessment and Plan (1) Hydropneumothorax: Status: Acute (2) Cavitary pneumonia: Status: Acute (3) Sepsis with acute hypoxic respiratory failure: Status: Acute (4) Pleural effusion: Status: Acute (5) Overweight: Status: Acute Plan 42yo M with OUD on Suboxone (abstinent of heroin x 2yr), recently incarcerated x8mo, presenting after 2 weeks of worsening cough and dyspnea-Admitted for severe sepsis with hypoxia and SIMBA due to PNA, found to have multifocal cavitary PNA-likely streptococcal, complicated by hydropneumothorax, now status post placement of chest tube in ICU, underwent chemical decortication. CT finding unchanged and concern of mucus plug so there is plan for bronch on 12/05. # severe sepsis due to multifocal cavitary [id number] pneumonia, likely st reptococcal. - on vancomycin 11/27-, pip-delano 11/27-, and azithromycin 11/26- - airborne precautions, T-spot, ID + Pulm following, AFB smear/Cx x3 - Legionella + pneumococcal Ags pending - MRSA swab POSITIVE - HIV Ab/Ag negative - TTE no vegetation AFB and Pleural ADA is pending. T spot is negative. plan: Hydropneumothorax status post left-sided chest tube undergoing chemical decortication. Continue to titrate off supplemental oxygen as tolerated. ?left chest tube to be placement today apex of loculated left pleural effusion by IR.?cytology also added. s/p bronchoscopy yesterday -cultures sent. Continue chest PT, mucolytcs, and aggressive pulmonary toileting with IS/acapella should be done.?chest tube mangement as per surgery. Infectious Disease follow up appreciated, Culture and pathology unremarkable so far- vanco dced and Zosyn. acute hypoxemic respiratory failure possibly sec to above. off oxygen,moniter sats. SIMBA - suspect prerenal vs septic ATN.? resolved after fluid resuscitation. OUD - Suboxone mood disorder - continue valproate, olanzapine, prazosin, mirtazapine VTE ppx:on hold LMWH for chest tube placement. INR on high side likely from acute illness, monitor Underlying bipolar disorder. Opioid dependence. Suboxone overweight : encouraged to lose weight. Prophylaxis: Lovenox Diet: Regular Need for inpatient:sepsis sec to pneumonia , Left sided with hydropneumothorax and has chest tube and acute ill and may need additiaonal surigical interve ntion-need iv antibiotics ,new chest tube placement for pleural effusion. Time Spent With Patient Time: Total time managing care of this patient today ____ minutes. Quality Stroke Does the patient have a stroke diagnosis?: No VTE Prior VTE?: No VTE Risk Level:: Medical - moderate - high VTE Device Contraindication: Treatment Not Indicated VTE Drug Contraindication: N/A - Med Ordered
[2022-12-06] MEDS: 0.9 % Sodium Chloride Flush 3 ML SYRINGE IVFLUSH (18:16)
[2022-12-06 20:00] VITALS: BP 143/79; PULSE 93; RESP 18; TEMP 37.3; O2SAT 96
[2022-12-06 21:33] LABS: Vancomycin Trough 4.6 mcg/mL (10.0-20.0)
[2022-12-06] MEDS: bisacodyL 5 MG TABLET.DR PO (22:39)
[2022-12-06] MEDS: Divalproex Sodium 500 MG TABLET.DR 2000 MG PO (22:39)
[2022-12-07] VITALS (7 sets, daily range): BP systolic 122–151; BP diastolic 61–76; PULSE 79–100; RESP 15–20; TEMP 36.1–37.5; O2SAT 92–97
[2022-12-07] MEDS: Piperacillin Sodium/Tazobactam 4.5 GM in 0.9 % Sodium Chloride 100 ML IV ×4 (02:36→22:03)
[2022-12-07] MEDS: Acetaminophen 325 MG TABLET 650 MG PO ×2 (02:37→22:02)
[2022-12-07 07:47] LABS: Creatinine Clr Calc Pharmacy 216.6; Estimated Glomerular Filt Rate > 60
[2022-12-07 08:31] LABS: Hematocrit 25.8 % (42.0-52.0); Hemoglobin 8.4 g/dl (14.0-18.0); Mean Corpuscular HGB Conc 32.6 g/dl (31.0-36.0); Mean Corpuscular Hemoglobin 27.3 pg (27.0-33.0); Mean Corpuscular Volume 83.8 fL (80.0-98.0); Mean Platelet Volume 10.1 fL (9.4-12.4); Platelet Count 256 X10*3/uL (160-400); Red Blood Count 3.08 X10*6/uL (4.60-5.80); Red Cell Distribution Width 16.3 % (11.0-16.0); White Blood Count 13.9 X10*3/uL (4.8-10.8)
[2022-12-07] MEDS: guaiFENesin LA 600 MG TAB.ER.12H 1200 MG PO ×2 (09:31→22:02)
[2022-12-07] MEDS: 0.9 % Sodium Chloride Flush 3 ML SYRINGE IVFLUSH ×2 (09:31→22:06)
--- NOTE | 2022-12-07 12:12 | PC.NURSE ---
Addendum entered by Izabel Britt RN 12/07/22 17:25: Thoracic PA at bedside to administer medication through chest tube and remove the lower L sided chest tube. Pt tolerated procedure well. Safety precautions remain in place. Original Note: report received from overnight RN, medical transcriber per DEC. Pt has 2 L side chest tubes in place. On assessment the lower chest tube's unit had no water in the air leak chamber, when water was added a grade 3 air leak was present. MD notified and reached out to thoracic. No new orders at this time. No crepitus noted. Safety precautions in place, call [place] within reach, camera in room. Pt encouraged to call and educated on importance of safety.
--- NOTE | 2022-12-07 15:48 | HO.PM.IMPN ---
Subjective Subjective Date of Service: 12/08/22 Interval History: f/u on hydropneumothorax, pneumonia s/p chest tube and undergoing chemical decordication, and believed to be suffering from mucus plug Review of Systems oxygen demand improving Has dry cough, denies any shortness of breath or chest pain. Physical Exam Vital Signs: Vital Signs: Last Vital Signs Temp 97.2 F 12/07/22 12:00 Pulse 79 12/07/22 12:00 Resp 20 12/07/22 12:00 BP 125/61 12/07/22 12:00 Pulse Ox 96 12/07/22 12:00 O2 Del Method 12/07/22 12:00 O2 Flow Rate 2 12/07/22 12:00 FiO2 80 12/05/22 13:31 BMI result Body Mass Index 32.3 General: AO X 3, no acute distress Resp:? diminished on right side, right chest tube in place with ample drainage CVS: S1,S2,RRR GI: +BS, NT, no distention Skin: No rash Neuro:? motor grossly intact Psych: appropriate affect Objective Data Active Medications Acetaminophen (Acetaminophen 325 Mg Tablet) 650 mg PO Q6H PRN PRN Reason: Pain, Mild (Pain Scale 1-3) Last Admin: 12/07/22 02:37 Dose: 650 mg Documented By: MOOKIE Bisacodyl (Bisacodyl 5 Mg Tablet.) 5 mg PO BEDTIME [facility] Last Admin: 12/06/22 22:39 Dose: 5 mg Documented By: MOOKIE Buprenorphine/Naloxone (Buprenorphine/Naloxone 2/0.5mg Film) 1 film SUBLINGUAL DAILY [facility] Last Admin: 12/07/22 09:41 Dose: Not Given Documented By: MISSAEL Non-Admin Reason: Patient Refused Divalproex Sodium (Divalproex Sodium 500 Mg Tablet.) 2,000 mg PO BEDTIME [facility] Last Admin: 12/06/22 22:39 Dose: 2,000 mg Documented By: MOOKIE Docusate Sodium (Docusate Sodium 100 Mg Capsule) 100 mg PO DAILY PRN PRN Reason: Constipation Enoxaparin Sodium (Enoxaparin Sodium 40 Mg/0.4 Ml Syringe) 40 mg SUBCUT Q24H [facility] Last Admin: 12/04/22 19:49 Dose: Not Given Documented By: JOHN Non-Admin Reason: Patient Refused Guaifenesin (Guaifenesin La 600 Mg Tab.Er.12h) 1,200 mg PO BID [facility] Stop: 12/09/22 10:00 Last Admin: 12/07/22 09:31 Dose: 1,200 mg Documented By: MISSAEL Piperacillin Sod/Tazobactam (Sod 4.5 gm/ Sodium Chloride) 100 mls @ 200 mls/hr IV Q6H [facility] Last Admin: 12/07/22 15:42 Dose: 200 mls/hr Documented By: MISSAEL Dornase [place] 5 mg/ Sodium (Chloride) 50 mls @ 0 mls/hr INTRAPLEUR ONCE ONE Stop: 12/07/22 16:31 Sodium Chloride (0.9 % Sodium Chloride Flush 3 Ml Syringe) 3 ml IVFLUSH QSHIFT [facility] Last Admin: 12/07/22 09:31 Dose: 3 ml Documented By: MISSAEL Labs 12/07/22 07:01 12/07/22 07:01 Labs: Laboratory Results - last 24 hr 12/06/22 12/07/22 12/07/22 21:09 07:01 07:01 MCV 83.8 MCH 27.3 MCHC 32.6 RDW 16.3 H Plt Count 256 D MPV 10.1 Absolute Nucleated RBC 0.000 Nucleated RBC % (auto) 0.0 Estim Creat Clear Calc 216.6 Estimated GFR > 60 Vancomycin Trough 4.6 L Microbiology Microbiology Results: Microbiology 12/05/22 12:51 Gram Stain - Final Washing - Lt Lung (Pleural) Routine Culture - Final Yeast Assessment and Plan (1) Overweight: Status: Acute (2) Pleural effusion: Status: Acute (3) Sepsis with acute hypoxic respiratory failure: Status: Acute (4) Pneumonia: Status: Acute Plan 42yo M with OUD on Suboxone (abstinent of heroin x 2yr), recently incarcerated x8mo, presenting after 2 weeks of worsening cough and dyspnea-Admitted for severe sepsis with hypoxia and SIMBA due to PNA, found to have multifocal cavitary PNA-likely streptococcal, complicated by hydropneumothorax, now status post placement of chest tube? in ICU, underwent chemical decortication. CT finding unchanged and concern of mucus plug so there is plan for bronch on 12/05. # severe sepsis due to multifocal cavitary [id number] pneumonia, likely streptococcal. - on vancomycin 11/27-, pip-delano 11/27-, and azithromycin 11/26- - airborne precautions, T-spot, ID + Pulm following, AFB smear/Cx x3 - Legionella + pneumococcal Ags pending - MRSA swab POSITIVE - HIV Ab/Ag negative - TTE no vegetation AFB and Pleural ADA is pending. ?T spot is negative. plan: ? Hydropneumothorax status post left-sided chest tube undergoing chemical decortication. Continue to titrate off supplemental oxygen as tolerated.? ?left chest tube to be placement today apex of loculated left pleural effusion by IR.?cytology also added. s/p bronchoscopy 2 days back -cultures sent. wbc trending down thoracic surgery-s/p chest tube removal left side.cxr this morning seems ?Better expanded left lung with a left apical pigtail catheter is stable.? Continue chest PT, mucolytcs, and aggressive pulmonary toileting with IS/acapella should be done.?chest tube mangement as per surgery. ?Infectious Disease follow up appreciated, Culture and pathology unremarkable so far- vanco dced and Zosyn. ?acute hypoxemic respiratory failure possibly sec to above. off oxygen,moniter sats. SIMBA - suspect prerenal vs septic ATN.? resolved after fluid resuscitation. ?OUD - Suboxone ?mood disorder - continue valproate, olanzapine, prazosin, mirtazapine VTE ppx:on hold? LMWH for chest tube placement. ? INR on high side likely? from acute illness, monitor ?Underlying bipolar disorder. ? Opioid dependence.? Suboxone overweight : encouraged to lose weight. Prophylaxis:? Lovenox Diet:? Regular Need for inpatient:sepsis sec to pneumonia , Left sided with hydropneumothorax and has chest tube and acute ill and may need additiaonal surigical intervention-need iv antibiotics ,new chest tube placement for pleural effusion. Time Spent With Patient Time: Total time managing care of this patient today ____ minutes. Quality Stroke Does the patient have a stroke diagnosis?: No VTE Prior VTE?: No VTE Risk Level:: Medical - moderate - high VTE Device Contraindication: Treatment Not Indicated VTE Drug Contraindication: N/A - Med Ordered
--- NOTE | 2022-12-07 15:50 | PM.PNTS ---
Subjective Subjective Date of Service: 12/07/22 Interval history: Patient was seen and examined this afternoon. His morning chest x-ray reveals new 8.5 [place] Islander pigtail catheter remains indwelling in proper position. There has been a decrease of air in regards to his left hydropneumothorax with remaining small pocket of air and loculated fluid along the mid to upper lung. it was noted by my personal readthat his previously placed large-bore chest tube had become withdrawn is seen on chest x-ray with port hole indwelling in chest wall and out of pleural space. his large bore chest tube also displayed a continuous air leak while on -20 low wall suction with no fluid output overnight. He stated that his breathing has improved over the past couple days and denies any fevers, chills, productive cough or hemoptysis. his new left-sided pigtail catheter put out 300 cc of serous fluid output with shreds of purulence overnight. During my examination with chest tube chest tube had already become occluded due to its very small size of being 8.5 [place]er and patient would likely have benefited from a 14 or 15 [place]er catheter for removal of his loculated effusion. I was able to under occlude his pigtail catheter using normal saline flush. Remaining 10 point review of systems negative at this time: Physical Exam Vital Signs: Vital Signs: Last Vital Signs Temp 97.2 F 12/07/22 12:00 Pulse 79 12/07/22 12:00 Resp 20 12/07/22 12:00 BP 125/61 12/07/22 12:00 Pulse Ox 96 12/07/22 12:00 O2 Del Method 12/07/22 12:00 O2 Flow Rate 2 12/07/22 12:00 FiO2 80 12/05/22 13:31 BMI result Body Mass Index 32.3 Const: Other: He is alert and orientated to person and place. Appears childlike at times. HEENT: Other: NC/AT, EOMI, sclera non-icteric, and no sinus tenderness. Neck: Other: No JVD Chest: Other: left pigtail catheter in place. No air leak. No crepitus. pigtail catheter to - 20 mm Hg with 300cc of serosang drainage in last 24 hours. Resp: Other: right lung field clear. left lung field diminished throughout but no rhonchi or wheezes present. Cardio: Other: regular rhythm GI: Other: abdomen soft nontender and nondistended. : Other: Voiding freely. Skin: Other: No rashes noted. Neuro: Other: grossly intact Extrem: Other: trace peripheral edema Procedures Date of Service Date of Service: 12/07/22 Progress Note: A&P Assessment and plan (1) Sepsis with acute hypoxic respiratory failure: Status: Acute (2) Hydropneumothorax: Status: Acute (3) Cavitary pneumonia: Status: Acute Plan Mr. Wilkins is a 42 year old male with cavitary pneumonia and a large left sided hydropneumothoax. TB being ruled out - remains on precautions. s/p 28Fr chest tube insertion (Dr. Mcdowell) on 11/30/22 s/p chemical decortication (Dr. Mcdowell) on 11/30/22, 12/01/22, and 12/02/22 S/ P 8.5 [place] pigtail catheter placed by Interventional Radiology on 12/06 S/p chemical decortication on 8 by thoracic surgery Left hydropneumothorax and cavitary pneumonia Bronchial washing : Gram stain negative. Cultures pending. Studies from 11/30: Anerobic pending , AFB and fungal cultures pending. Exudative process. Left-sided large bore chest tube removed without incident and dry occlusive dressing put in place after it was noted on chest x-ray that chest tube had become withdrawn from pleural space. (E occlusive chest tube dressing should remain in place for 48 hours and may be removed on 12/09 left-sided apical pigtail catheter placed by Interventional Radiology yesterday with 8.5 [place]er which will prove to be difficult for loculated fluid drainage due to very small size in the lumen. Thoracic Surgery will continue to monitor/manage chest tube. Continue chest tube to -20 mm Hg suction and follow outputs. Continue chest PT, mucolytcs, and aggressive pulmonary toileting with IS/acapella should be done. pt is pulling 1700 on IS ID following.? Continue antibiotics: currently on Zosyn.?Leukocytosis is trending downward to 13. Bedside fibrinolysis: At 03:30 this afternoon alteplase 4 mg in a a 50 mL normal saline solution was administered intrapleural space through pigtail catheter. at 17:00 5 mg of during a Doppler in the 30 mL normal saline solution was administered into the intrapleural space. This solution should remain indwelling with chest tube clamped for 6 hours until 21:30 tonight at which point in time it should be unclamped at stopcock and setback to -20 low wall suction. Images and case reviewed and discussed with Dr. Wilkinson. Time Spent With Patient Time: Total time managing care of this patient today ____ minutes. Quality Stroke Does the patient have a stroke diagnosis?: No VTE Prior VTE?: No VTE Risk Level:: Medical - moderate - high VTE Device Contraindication: Treatment Not Indicated VTE Drug Contraindication: N/A - Med Ordered
--- NOTE | 2022-12-07 16:05 | MHC.CM.PN ---
Per MD rounds no dc today. Patient continues with chest tubes.
[2022-12-07] MEDS: Dornase Alfa 5 MG in 0.9 % Sodium Chloride 25 ML 999 MG INTRAPLEUR (17:33)
[2022-12-07] MEDS: Divalproex Sodium 500 MG TABLET.DR 2000 MG PO (22:02)
[2022-12-07] MEDS: bisacodyL 5 MG TABLET.DR PO (22:02)
[2022-12-08] MEDS: Piperacillin Sodium/Tazobactam 4.5 GM in 0.9 % Sodium Chloride 100 ML IV ×4 (03:27→21:21)
[2022-12-08 04:00] VITALS: BP 118/67; PULSE 94; RESP 15; TEMP 37.2; O2SAT 98
[2022-12-08 07:44] VITALS: BP 130/58; PULSE 95; RESP 20; TEMP 36.9; O2SAT 96
[2022-12-08 08:49] LABS: Hematocrit 23.3 % (42.0-52.0); Hemoglobin 7.7 g/dl (14.0-18.0)
[2022-12-08 09:26] LABS: Creatinine Clr Calc Pharmacy 196.3; Estimated Glomerular Filt Rate > 60
[2022-12-08] MEDS: guaiFENesin LA 600 MG TAB.ER.12H 1200 MG PO ×2 (09:31→21:21)
[2022-12-08] MEDS: 0.9 % Sodium Chloride Flush 3 ML SYRINGE IVFLUSH ×3 (09:32→21:21)
--- NOTE | 2022-12-08 09:35 | P.PNTS_ITS ---
Subjective Subjective Date of Service: 12/08/22 Interval history: Patient was seen and examined this morning. Overnight his left-sided pigtail catheter showed good response to tPA /dornase administration with 600 cc of serosanguineous fluid output after chest tube was unclamped yesterday evening. his left-sided chest tube remains on -20 low wall suction overnight and continues not to show any detectable air leak. His hemoglobin has slightly trended downward to 7.9 which she continued to be monitored over the next coming days as he is receiving bedside fibrinolysis. he reports a productive cough of large amounts of copious thick boo sputum. He states that his shortness of breath continues to show improvement and currently denies any shortness of breath at rest with small amounts of dyspnea on exertion. He denies any fevers, chills states overall he feels great . Remaining 10 point review of systems negative at this time: Physical Exam Vital Signs: Vital Signs: Last Vital Signs Temp 98.4 F 12/08/22 07:44 Pulse 95 12/08/22 07:44 Resp 20 12/08/22 07:44 BP 130/58 L 12/08/22 07:44 Pulse Ox 96 12/08/22 07:44 O2 Del Method 12/08/22 07:44 O2 Flow Rate 2 12/08/22 07:44 FiO2 80 12/05/22 13:31 BMI result Body Mass Index 32.3 Const: Other: He is alert and orientated to person and place. Appears childlike at times. HEENT: Other: NC/AT, EOMI, sclera non-icteric, and no sinus tenderness. Neck: Other: No JVD Chest: Other: left pigtail catheter in place. No air leak. No crepitus. pigtail catheter to - 20 mm Hg with 300cc of serosang drainage in last 24 hours. Resp: Other: right lung field clear. left lung field diminished throughout but no rhonchi or wheezes present. Cardio: Other: regular rhythm GI: Other: abdomen soft nontender and nondistended. : Other: Voiding freely. Skin: Other: No rashes noted. Neuro: Other: grossly intact Extrem: Other: trace peripheral edema Procedures Date of Service Date of Service: 12/08/22 Progress Note: A&P Assessment and plan (1) Sepsis with acute hypoxic respiratory failure: Status: Acute (2) Hydropneumothorax: Status: Acute (3) Cavitary pneumonia: Status: Acute Plan Mr. Wilkins is a 42 year old male with cavitary pneumonia and a large left sided hydropneumothoax. TB being ruled out - remains on precautions. s/p 28Fr chest tube insertion (Dr. Mcdowell) on 11/30/22 s/p chemical decortication (Dr. Mcdowell) on 11/30/22, 12/01/22, and 12/02/22 S/ P 8.5 Bengali pigtail catheter placed by Interventional Radiology on 12/06 S/p chemical decortication on 0 8 by thoracic surgery Left hydropneumothorax and cavitary pneumonia * Bronchial washing : Gram stain negative. Cultures pending. * Studies from 11/30: Anerobic pending , AFB and fungal cultures pending. * Exudative process. * morning chest x-ray per my personal viewing shows some improvement in left- sided aeration. * occlusive chest tube dressing from previous large bore chest tube site should remain in place for 48 hours and may be removed on 12/09 * left-sided apical pigtail catheter healed at 600 cc of serosanguineous fluid output overnight with no detectable air leak after chest tube was unclamped s/p bedside fibrinolysis. * Thoracic Surgery will continue to monitor/manage chest tube. Continue chest tube to -20 mm Hg suction and follow outputs. * Continue chest PT, mucolytcs, and aggressive pulmonary toileting with IS/acapella should be done. pt is pulling 1700 on IS * ID following.? Continue antibiotics: currently on Zosyn.?Leukocytosis is trending downward to 13. * hemoglobin 7.7 should continue to trend while receiving bedside fibrinolysis Bedside fibrinolysis: * At 09:30 this am alteplase 4 mg in a a 50 mL normal saline solution was administered intrapleural space through pigtail catheter. * At 11:30 Don a self of 5 mg in a a 30 mL normal saline solution was administered into intrapleural space to pigtail catheter. * This solution should remain indwelling with chest tube clamped for 6 hours until 15:30 at which point in time it should be unclamped at stopcock and setback to -20 low wall suction. Images and case reviewed and discussed with Dr. Wilkinson. Time Spent With Patient Time: Total time managing care of this patient today ____ minutes. Quality Stroke Does the patient have a stroke diagnosis?: No VTE Prior VTE?: No VTE Risk Level:: Medical - moderate - high VTE Device Contraindication: Treatment Not Indicated VTE Drug Contraindication: N/A - Med Ordered
[2022-12-08] MEDS: Dornase Alfa 5 MG in 0.9 % Sodium Chloride 25 ML 999 MG INTRAPLEUR (11:40)
[2022-12-08 12:00] VITALS: BP 132/64; PULSE 93; RESP 20; TEMP 36.7; O2SAT 97
[2022-12-08 14:20] LABS: Iron 17 mcg/dL (45-160); Percent Iron Saturation 15 % (15-50); Total Iron Binding Capacity 116 mcg/dL (228-428); Unsaturated Iron Binding 99 ug/dL
[2022-12-08 14:48] LABS: Ferritin 414 ng/mL (20-250); Folate 6.7 ng/mL (> or = 4.0); Vitamin B12 1326 pg/mL (200-900)
[2022-12-08] MEDS: Acetaminophen 325 MG TABLET 650 MG PO ×2 (15:37→21:25)
--- NOTE | 2022-12-08 15:44 | PC.NURSE ---
report recieved from overnight RN, media director per DEC. Thoracic PA admin med through chest tube and clamped off tube at 0930, communication to unclamp chest tube at 1530 and return to suction -20. Chest tube unclamped and suction on. Pt tolerated well. Safety precuations in place, call [place] within reach, camera in room. Pt refusing alarms. Educated about importance of safety, pt verbalized understanding, encouraged to call for assistance.
[2022-12-08 16:00] VITALS: BP 136/61; PULSE 96; RESP 16; TEMP 36.9; O2SAT 97
[2022-12-08] MEDS: Ferrous Sulfate 300 MG/5 ML LIQUID PO (18:03)
[2022-12-08 20:00] VITALS: BP 134/72; PULSE 92; RESP 16; TEMP 36.9; O2SAT 96
[2022-12-08 20:12] LABS: Hematocrit 23.3 % (42.0-52.0); Hemoglobin 7.8 g/dl (14.0-18.0)
[2022-12-08] MEDS: Divalproex Sodium 500 MG TABLET.DR 2000 MG PO (21:21)
[2022-12-08] MEDS: bisacodyL 5 MG TABLET.DR PO (21:21)
[2022-12-09] VITALS: BP 137/65; PULSE 88; RESP 18; TEMP 36.4; O2SAT 97
[2022-12-09] MEDS: Piperacillin Sodium/Tazobactam 4.5 GM in 0.9 % Sodium Chloride 100 ML IV ×4 (03:45→21:28)
[2022-12-09 05:17] VITALS: PULSE 80; O2SAT 98
[2022-12-09 07:46] VITALS: BP 112/59; PULSE 98; RESP 18; TEMP 37.3; O2SAT 94
[2022-12-09] MEDS: Ferrous Sulfate 300 MG/5 ML LIQUID PO ×2 (08:52→16:15)
[2022-12-09] MEDS: guaiFENesin LA 600 MG TAB.ER.12H 1200 MG PO (08:52)
[2022-12-09] MEDS: Acetaminophen 325 MG TABLET 650 MG PO ×3 (09:03→21:32)
[2022-12-09] MEDS: 0.9 % Sodium Chloride Flush 3 ML SYRINGE IVFLUSH ×3 (09:04→21:33)
[2022-12-09 10:11] LABS: Basophils Percent Auto 0.2 % (0-2); Eosinophils Percent Auto 0.1 % (0-4); Hematocrit 23.4 % (42.0-52.0); Hemoglobin 7.5 g/dl (14.0-18.0); Imm Gran Abs Auto 0.17 X10*3/uL (0.00-0.03); Imm Gran Pct Auto 1.7 % (0.0-0.4); Lymphocytes Absolute Auto 1.7 X10*3/uL (1.2-4.9); Lymphocytes Percent Auto 16.9 % (20-40); MANUAL DIFF FLAG SCAN; Mean Corpuscular HGB Conc 32.1 g/dl (31.0-36.0); Mean Corpuscular Hemoglobin 27.8 pg (27.0-33.0); Mean Corpuscular Volume 86.7 fL (80.0-98.0); Mean Platelet Volume 9.4 fL (9.4-12.4); Monocytes Absolute Auto 1.7 X10*3/uL (0.1-1.2); Monocytes Percent Auto 16.5 % (2-11); Neutrophils Absolute Auto 6.5 x10*3/uL (2.0-8.3); Neutrophils Percent Auto 64.6 % (45-73); Platelet Count 340 X10*3/uL (160-400); Red Cell Distribution Width 16.5 % (11.0-16.0); SCAN SMEAR FLAG 1; White Blood Count 10.1 X10*3/uL (4.8-10.8)
[2022-12-09 10:16] LABS: INTERNATIONAL NORM RATIO 1.9 (0.9-1.1); Prothrombin Time 22.6 SEC (10.0-13.1)
[2022-12-09 10:47] LABS: SLIDE REVIEW VERIFIED
[2022-12-09 11:42] VITALS: BP 100/71; PULSE 114; RESP 17; TEMP 36.6; O2SAT 94
[2022-12-09 11:58] LABS: Alanine Aminotransferase 11 U/L (0-40); Albumin Level 1.6 g/dL (3.5-5.0); Alkaline Phosphatase 49 U/L (39-117); Aspartate Amino Transferase 29 U/L (5-37); Bilirubin Total 0.4 mg/dL (0.0-1.0); Total Protein 7.3 g/dL (6.5-8.0)
[2022-12-09 15:22] VITALS: BP 118/66; PULSE 77; RESP 17; TEMP 36.2; O2SAT 97
--- NOTE | 2022-12-09 15:49 | P.PNIM_ITS ---
Subjective Subjective Date of Service: 12/09/22 Interval History: f/u on hydropneumothorax, pneumonia s/p chest tube and undergoing chemical decordication, and believed to be suffering from mucus plug Review of Systems oxygen demand improving Has dry cough, denies any shortness of breath or chest pain. Physical Exam Vital Signs: Vital Signs: Last Vital Signs Temp 97.1 F 12/09/22 15:22 Pulse 77 12/09/22 15:22 Resp 17 12/09/22 15:22 BP 118/66 12/09/22 15:22 Pulse Ox 97 12/09/22 15:22 O2 Del Method 12/09/22 15:22 O2 Flow Rate 2 12/09/22 07:46 FiO2 80 12/05/22 13:31 BMI result Body Mass Index 32.3 General: AO X 3, no acute distress Resp:? diminished on right side, right chest tube in place with drainage CVS: S1,S2,RRR GI: +BS, NT, no distention Skin: No rash Neuro:? motor grossly intact Psych: appropriate affect Objective Data Active Medications Acetaminophen (Acetaminophen 325 Mg Tablet) 650 mg PO Q6H PRN PRN Reason: Pain, Mild (Pain Scale 1-3) Last Admin: 12/09/22 09:03 Dose: 650 mg Documented By: KASSIDY Bisacodyl (Bisacodyl 5 Mg Tablet.) 5 mg PO BEDTIME [facility] Last Admin: 12/08/22 21:21 Dose: 5 mg Documented By: SHILPA Buprenorphine/Naloxone (Buprenorphine/Naloxone 2/0.5mg Film) 1 film SUBLINGUAL DAILY [facility] Last Admin: 12/09/22 08:53 Dose: Not Given Documented By: KASSIDY Non-Admin Reason: Patient Refused Divalproex Sodium (Divalproex Sodium 500 Mg Tablet.) 2,000 mg PO BEDTIME [facility] Last Admin: 12/08/22 21:21 Dose: 2,000 mg Documented By: SHILPA Docusate Sodium (Docusate Sodium 100 Mg Capsule) 100 mg PO DAILY PRN PRN Reason: Constipation Enoxaparin Sodium (Enoxaparin Sodium 40 Mg/0.4 Ml Syringe) 40 mg SUBCUT Q24H [facility] Last Admin: 12/04/22 19:49 Dose: Not Given Documented By: JOHN Non-Admin Reason: Patient Refused Ferrous Sulfate (Ferrous Sulfate 300 Mg/5 Ml Liquid) 300 mg PO BIDWM [facility] Last Admin: 12/09/22 08:52 Dose: 300 mg Documented By: KASSIDY Piperacillin Sod/Tazobactam (Sod 4.5 gm/ Sodium Chloride) 100 mls @ 200 mls/hr IV Q6H [facility] Last Infusion: 12/09/22 10:08 Dose: 200 mls/hr Documented By: KASSIDY Sodium Chloride (0.9 % Sodium Chloride Flush 3 Ml Syringe) 3 ml IVFLUSH QSHIFT [facility] Last Admin: 12/09/22 09:04 Dose: 3 ml Documented By: KASSIDY Labs 12/09/22 09:56 12/08/22 07:40 Labs: Laboratory Results - last 24 hr 12/08/22 12/09/22 12/09/22 14:54 09:56 09:56 MCV 86.7 MCH 27.8 MCHC 32.1 RDW 16.5 H Plt Count 340 D MPV 9.4 Immature Gran % (Auto) 1.7 H Neut % (Auto) 64.6 Lymph % (Auto) 16.9 L [place] % (Auto) 16.5 H Eos % (Auto) 0.1 Baso % (Auto) 0.2 Lymph # (Auto) 1.7 [place] # (Auto) 1.7 H Eos # (Auto) 0.0 Baso # (Auto) 0.0 Abs Immat Gran (auto) 0.17 H Absolute Neuts (auto) 6.5 Absolute Nucleated RBC 0.000 Nucleated RBC % (auto) 0.0 Smear Tech's Comments VERIFIED PT 22.6 H INR 1.9 H Total Bilirubin AST ALT Alkaline Phosphatase Total Protein Albumin Antibody Screen NEGATIVE 12/09/22 11:28 MCV MCH MCHC RDW Plt Count MPV Immature Gran % (Auto) Neut % (Auto) Lymph % (Auto) [place] % (Auto) Eos % (Auto) Baso % (Auto) Lymph # (Auto) [place] # (Auto) Eos # (Auto) Baso # (Auto) Abs Immat Gran (auto) Absolute Neuts (auto) Absolute Nucleated RBC Nucleated RBC % (auto) Smear Tech's Comments PT INR Total Bilirubin 0.4 AST 29 ALT 11 Alkaline Phosphatase 49 Total Protein 7.3 Albumin 1.6 L Antibody Screen Assessment and Plan (1) Overweight: Status: Acute (2) Pleural effusion: Status: Acute (3) Sepsis with acute hypoxic respiratory failure: Status: Acute (4) Pneumonia: Status: Acute Plan 42yo M with OUD on Suboxone (abstinent of heroin x 2yr), recently incarcerated x8mo, presenting after 2 weeks of worsening cough and dyspnea-Admitted for severe sepsis with hypoxia and SIMBA due to PNA, found to have multifocal cavitary PNA-likely streptococcal, complicated by hydropneumothorax, now status post placement of chest tube? in ICU, underwent chemical decortication. CT finding unchanged and concern of mucus plug so there is plan for bronch on 12/05. # severe sepsis due to multifocal cavitary [id number] pneumonia, likely streptococcal. - on vancomycin 11/27-, pip-delano 11/27-, and azithromycin 11/26- - airborne precautions, T-spot, ID + Pulm following, AFB smear/Cx x3 - Legionella + pneumococcal Ags pending - MRSA swab POSITIVE - HIV Ab/Ag negative - TTE no vegetation AFB and Pleural ADA is pending. ?T spot is negative. plan: ? Hydropneumothorax status post left-sided chest tube undergoing chemical de cortication. Continue to titrate off supplemental oxygen as tolerated.? ?left chest tube to be placement today apex of loculated left pleural effusion by IR.?cytology also added. s/p bronchoscopy 2 days back -cultures sent. wbc improved thoracic surgery-s/p chest tube removal left side.cxr this morning seems ?Better expanded left lung with a left apical pigtail catheter is stable.? Continue chest PT, mucolytcs, and aggressive pulmonary toileting with IS/acapella should be done.?chest tube mangement as per surgery. ?Infectious Disease follow up appreciated, Culture and pathology unremarkable so far- vanco dced and Zosyn. ?acute hypoxemic respiratory failure possibly sec to above. off oxygen,moniter sats. SIMBA - suspect prerenal vs septic ATN.? resolved after fluid resuscitation. ?OUD - Suboxone ?mood disorder - continue valproate, olanzapine, prazosin, mirtazapine VTE ppx:on hold? LMWH for chest tube placement. ? INR on high side likely? from acute illness, monitor possible nutrional component -added vitamin k. ?Underlying bipolar disorder. ? Opioid dependence.? Suboxone overweight : encouraged to lose weight. Acute blood loss anemia on chronic anemia normocytic: Multifactorial:? On going fibrinlysis , chest tube also draining some pinkish liquids) iron studies ,added iron moniter h/h if h/h <7.5 ,consider transfusion. Prophylaxis:?hold Lovenox due to anemia, scd. Diet:? Regular Need for inpatient:sepsis sec to pneumonia , Left sided with hydropneumothorax and has chest tube and acute ill and may need additiaonal surigical intervention-need iv antibiotics ,new chest tube placement for pleural effusion. Time Spent With Patient Time: Total time managing care of this patient today ____ minutes. Quality Stroke Does the patient have a stroke diagnosis?: No VTE Prior VTE?: No VTE Risk Level:: Medical - moderate - high VTE Device Contraindication: Treatment Not Indicated VTE Drug Contraindication: N/A - Med Ordered
--- NOTE | 2022-12-09 15:58 | P.PNTS_ITS ---
Subjective Subjective Date of Service: 12/09/22 Interval history: 42 y/o gentleman hospitalized since November 26 with left cavitary pneumonia and left hydropneumothorax. CT was placed previously in left lower pleural space and pt under tPA therapy. A second chest tube was placed on 12/06/22 and patient has had two subsequent rounds of tPA /dornase administration with 600 cc of serosanguineous?fluid output after first therapy and an additioanl 210 cc of serosang fluid after second administration. His left-sided chest tube remains on -20 low wall suction overnight and continues not to show any detectable air leak.?The initial plan was to administer a third dose of tPA/dornase, however his INR has increased to 1.9 which increases his risk of bleeding with fibrinolysis administration.. He hematocrit has been stable at 23.4 over the last three days. Morning chest x-ray shows no significant change in the pleural based opacity along the left hemithorax as well as no change in patchy airspace opacity. Physical Exam Vital Signs: Vital Signs: Last Vital Signs Temp 97.1 F 12/09/22 15:22 Pulse 77 12/09/22 15:22 Resp 17 12/09/22 15:22 BP 118/66 12/09/22 15:22 Pulse Ox 97 12/09/22 15:22 O2 Del Method 12/09/22 15:22 O2 Flow Rate 2 12/09/22 07:46 FiO2 80 12/05/22 13:31 BMI result Body Mass Index 32.3 last highest temp on 12/02/22 of 99.7 pt is sitting upright in chair. he is in no distress, appears comfortable. Const: Other: Asking about the plan. Discussed repeating CT scan. pt states that he feels great! He says his breathing and cough are improving. ROS: denies fever, chills, SOB, pain around chest tube, abdominal pain, nausea, vomiting, and calf pain. + cough but becoming yellow to clear General: cooperative HEENT: Other: NC/AT, EOMI, sclera non-icteric Neck: Other: no JVD, no cervical lymphadenopathy Chest: Other: Left apical pigrtail (8 slovenian) in place on -20 mmHg, with 210 cc of mainly straw colored thin fluid, with no air leak. Resp: Other: diminished bilaterally at bases. Cardio: Other: RRR GI: Other: abdomen soft, nontender, nondistended. + BM : Other: Voiding freely Skin: Other: No rashes, trace peripheral edema. Neuro: Other: grossly intact with no deficits Procedures Date of Service Date of Service: 12/09/22 Progress Note: A&P Assessment and plan (1) Hydropneumothorax: Start date: 10/26/22 Status: Acute (2) Cavitary pneumonia: Start date: 10/26/22 Status: Acute Plan Mr. Wilkins is a 42 year old male with cavitary pneumonia and a left sided hydro pneumothoax. TB being ruled out - remains on precautions. S/P 28Fr chest tube insertion (Dr. Mcdowell) on 11/30/22 S/P Chemical decortication (Dr. Mcdowell) on 11/30/22, 12/01/22, and 12/02/22 S/P 8.5 Frisian pigtail catheter placed by Interventional Radiology on 12/06 S/P Chemical decortication on 8 and 12/08 by thoracic surgery No Chemical decorotication on 12/09 - due to elevated INR of 1.9 Left hydropneumothorax and cavitary pneumonia * Bronchial washing :? Gram stain negative.? Cultures Yeast < 10 CFU. ? Contaminant * Studies from 11/30:? Anerobic pending , AFB and fungal cultures pending. * Exudative process. * ?left-sided apical pigtail catheter's output of 210cc of yellow- serosanguineous fluid/24 hours no detectable air leak after chest tube was unclamped. * No fibrinolysis today due to elevated INR. LFTs appear normal. May need further evaluation. Repeat labs in am. * Obtain Noncontrast CT scan of chest to aide in further therapy. * Thoracic Surgery will continue to monitor/manage chest tube.? Continue chest tube to -20 mm Hg suction and follow outputs. * Continue chest PT, mucolytcs, and aggressive pulmonary toileting with IS/acapella should be done.? pt is pulling nearly 2500 on IS * ID following - their recommendations:? Continue antibiotics: Zosyn for now and IV ertapenem upon discharge unless changes for 3-6 weeks (now day 10 antibiotics)..?Leukocytosis? is trending downward to 10.? * Serum albumin 1.6. Severe hypoalbuminemia. Consult Nutrition. Could also be diagnostic of infectious/inflammatory pulmonary disease. Time Spent With Patient Time: Total time managing care of this patient today __40__ minutes. Quality Stroke Does the patient have a stroke diagnosis?: No VTE Prior VTE?: No VTE Risk Level:: Medical - moderate - high VTE Device Contraindication: Treatment Not Indicated VTE Drug Contraindication: N/A - Med Ordered
[2022-12-09] MEDS: Phytonadione (Vit K1) Oral 10 MG/ML AMPUL PO (16:17)
[2022-12-09 20:00] VITALS: BP 130/59; PULSE 75; RESP 17; TEMP 36.7; O2SAT 98
[2022-12-09] MEDS: Divalproex Sodium 500 MG TABLET.DR 2000 MG PO (21:30)
[2022-12-09] MEDS: bisacodyL 5 MG TABLET.DR PO (21:31)
[2022-12-09] MEDS: Docusate Sodium 100 MG CAPSULE PO (21:31)
[2022-12-10] VITALS (7 sets, daily range): BP systolic 110–149; BP diastolic 55–76; PULSE 72–85; RESP 19–20; TEMP 36.1–37.7; O2SAT 91–98
[2022-12-10] MEDS: Piperacillin Sodium/Tazobactam 4.5 GM in 0.9 % Sodium Chloride 100 ML IV ×4 (02:51→21:42)
[2022-12-10 06:32] LABS: INTERNATIONAL NORM RATIO 1.3 (0.9-1.1); Prothrombin Time 14.7 SEC (10.0-13.1)
[2022-12-10 08:08] LABS: Hematocrit 23.2 % (42.0-52.0); Hemoglobin 7.4 g/dl (14.0-18.0)
[2022-12-10 08:33] LABS: INTERNATIONAL NORM RATIO 1.3 (0.9-1.1); Prothrombin Time 15.3 SEC (10.0-13.1)
[2022-12-10] MEDS: Phytonadione (Vit K1) Oral 10 MG/ML AMPUL PO (10:21)
[2022-12-10] MEDS: Ferrous Sulfate 300 MG/5 ML LIQUID PO ×2 (10:22→16:26)
[2022-12-10] MEDS: 0.9 % Sodium Chloride Flush 3 ML SYRINGE IVFLUSH ×3 (10:22→21:46)
--- NOTE | 2022-12-10 10:36 | PM.HEMONCCN ---
Subjective - Subjective Chief complaint: Consult for: Elevated INR. Patient: new to practice Consult date: 12/10/22 Primary Care Provider: None Physician Medical Summary: DIAGNOSIS: ELEVATED INR. HPI - Consult Narrative Reason for consult: Consult for: Elevated INR. Narrative: Tony Wilkins is a 42 year old gentleman presented on November 26. He presented with c/o SOB and productive cough x2 weeks. His symptoms began a little over two weeks ago as an URI with head cold and stuffiness that progressed into the chest with a cough occasionally productive of yellowish sputum. He then noted a sharp increase in SOB with exertion and at rest, and developed pleuritic chest pain with inspiration, particularly on his left side. His apetite declined, he has not been eating or drinking much the past few days. He denied fever, chills, nausea, vomiting. No palpitations. Patient denies abdominal pain. In the ED het was tachycardic, tachypneic, and hypotensive. Labs were significant for leukocytosis of 43.5 with a left shift, H&H of 12.6/39.6, creatinine of 2.80 (baseline unknown), Lactic acid of 3.1. VBG with pH of 7.51 CXR showed: Left upper lobe consolidation/infiltrate. CT?of chest: An approximately 6.8 cm centrally cavitating left upper lobe pulmonary mass with surrounding groundglass and crazy paving. Multiple additional solid pulmonary nodules are seen predominantly throughout the left lung, many with central cavitation as well as few scattered areas of groundglass and consolidation. Differential considerations would include both infectious/inflammatory or neoplastic etiology, including pulmonary tuberculosis, or other infectious etiology, including atypical infections and septic emboli, granulomatous etiology, or malignant etiology. Recommend correlation with clinical symptoms and consider further evaluation with bronchoscopy. Small left pleural effusion with trace left pulmonary edema. EKG demonstrated sinus tachycardia with no evidence of ST elevations or depressions. Pt was treated with severe sepsis bundle with IVF, azithromycin, and ceftriaxone. Pt will be admitted to the hospital to telemetry for treatment of acute hypoxic respiratory failure in setting of community-acquired pneumonia. [facility] Medical History: PMH significant for?bipolar disorder, PTSD, anxiety, and agoraphobia. Anxiety Bipolar 1 disorder Cavitary pneumonia PTSD (post-traumatic stress disorder) Substance use disorder Social History: Household Members: Spouse and None Housing: House Unable to assess alcohol history related to: Unknown Alcohol intake: never Patient Tobacco Use Status: Former Tobacco user Smoked in Last 30 Days: Yes Patient Interested in Nicotine Replacement: No Use of substances other than those prescribed or required for medical reasons: Yes Substance Use Type: Other Review of Systems - Constitutional Reports system reviewed and no additional complaints, except as documented, Reports chills, Reports lack of energy, Reports malaise, Reports weakness, Reports weight loss - Eyes Reports system reviewed and no additional complaints, except as documented - ENT Reports system reviewed and no additional complaints, except as documented - Cardiovascular Reports system reviewed and no additional complaints, except as documented - Respiratory Reports no additional respiratory complaints - Gastrointestinal Reports system reviewed and no additional complaints, except as documented - Genitourinary Genitourinary: Reports no additional male genitourinary complaints - Musculoskeletal Reports system reviewed and no additional complaints, except as documented - Integumentary/Breasts Skin/Breast: Reports no additional skin complaints - Neurologic Denies headache(s), Denies loss of vision - Psychiatric Reports system reviewed and no additional complaints, except as documented - Endocrine Reports no additional endocrine complaints - Hematologic/Lymphatic Reports system reviewed and no additional complaints, except as documented - Allergic/Immunologic Reports system reviewed and no additional complaints, except as documented Oncology Screenings - ECOG Performance Status ECOG Performance Status: 2 [facility] Medical History: Medical History (Last Updated 12/01/22 @ 12:55 by Javier Mcdowell MD) Anxiety Bipolar 1 disorder Cavitary pneumonia PTSD (post-traumatic stress disorder) Substance use disorder Functional capacity: uses cane/walker Patient : No Family history: reviewed and not pertinent Social History: Social History (Last Reviewed 11/28/22 @ 15:57 by Karla Christie MD) Living Situation History: Household Members: Spouse Household Members: None Housing: House Alcohol History: Unable to assess alcohol history related to: Unknown Alcohol History Details: 1. How often do you have a drink containing alcohol?: a. Never AUDIT-C Alcohol total score: 0 Currently Displaying Signs/Symptoms of Alcohol Withdrawal: No Tobacco History: Patient Tobacco Use Status: Former Tobacco user Smoked in Last 30 Days: Yes Patient Interested in Nicotine Replacement: No Substance Use History: Use of substances other than those prescribed or required for medical reasons: Yes Substance Use Type: Other Currently Displaying Signs/Symptoms of Drug Intoxication Withdrawal: No Any prior treatment program specific to substance use: No Domestic Abuse History: Have you been hit, kicked, punched, or otherwise hurt by someone within the past year? If so, by whom?: No Do you feel safe in your current relationship?: Yes Is there a partner from a previous relationship who is making you feel unsafe now?: No Are you made to feel afraid or neglected: No Advance Directives: Advance Directives: No Advance Directives Information Provided: Advance Directives Information Provided comment: Declined Nutrition Assessment: Nutrition Risks: No Nutritional Risk Patient : No Occupation Assessmet: service: No Current occupational status: disabled Home Medications and Allergies Current Medications: Current Medications Acetaminophen (Acetaminophen 325 Mg Tablet) 650 mg PO Q6H PRN PRN Reason: Pain, Mild (Pain Scale 1-3) Last Admin: 12/09/22 21:32 Dose: 650 mg Bisacodyl (Bisacodyl 5 Mg Tablet.) 5 mg PO BEDTIME [facility] Last Admin: 12/09/22 21:31 Dose: 5 mg Buprenorphine/Naloxone (Buprenorphine/Naloxone 2/0.5mg Film) 1 film SUBLINGUAL DAILY [facility] Last Admin: 12/10/22 10:22 Dose: Not Given Divalproex Sodium (Divalproex Sodium 500 Mg Tablet.) 2,000 mg PO BEDTIME [facility] Last Admin: 12/09/22 21:30 Dose: 2,000 mg Docusate Sodium (Docusate Sodium 100 Mg Capsule) 100 mg PO DAILY PRN PRN Reason: Constipation Last Admin: 12/09/22 21:31 Dose: 100 mg Enoxaparin Sodium (Enoxaparin Sodium 40 Mg/0.4 Ml Syringe) 40 mg SUBCUT Q24H [facility] Last Admin: 12/04/22 19:49 Dose: Not Given Ferrous Sulfate (Ferrous Sulfate 300 Mg/5 Ml Liquid) 300 mg PO BIDWM [facility] Last Admin: 12/10/22 10:22 Dose: 300 mg Piperacillin Sod/Tazobactam (Sod 4.5 gm/ Sodium Chloride) 100 mls @ 200 mls/hr IV Q6H [facility] Last Admin: 12/10/22 10:21 Dose: 200 mls/hr Sodium Chloride (0.9 % Sodium Chloride Flush 3 Ml Syringe) 3 ml IVFLUSH QSHIFT [facility] Last Admin: 12/10/22 10:22 Dose: 3 ml Home Medications Medication Instructions Recorded Confirmed Type bisacodyl 5 mg tablet,delayed 5 mg PO BEDTIME 11/26/22 11/26/22 History release buprenorphine 12 mg-naloxone 3 mg 0.5 film buccal TID@0600,1000,1400 11/26/22 11/26/22 History sublingual film (Suboxone) buprenorphine 12 mg-naloxone 3 mg 0.5 strip sublingual DAILY@1800 11/26/22 11/26/22 History sublingual film (Suboxone) buprenorphine 8 mg-naloxone 2 mg 1 film buccal BEDTIME 11/26/22 11/26/22 History sublingual film (Suboxone) cetirizine 10 mg tablet 10 mg PO BEDTIME PRN Allergy 11/26/22 11/26/22 History Symptoms divalproex 500 mg tablet,delayed 4 tab PO BEDTIME 11/26/22 11/26/22 History release docusate sodium 100 mg capsule 100 mg PO BEDTIME 11/26/22 11/26/22 History ibuprofen 800 mg tablet 800 mg PO Q6H PRN Back Pain 11/26/22 11/26/22 History mirtazapine 45 mg tablet 1 tab PO BEDTIME 11/26/22 11/26/22 History olanzapine 5 mg tablet 2 tab PO BEDTIME 11/26/22 11/26/22 History prazosin 2 mg capsule 2 mg PO BEDTIME 11/26/22 11/26/22 History Allergies Allergy/AdvReac Type Severity Reaction Status Date / Time quetiapine [From Seroquel] Allergy Chest Pain Verified 11/26/22 17:13 Physical Exam Vital signs: Vital Signs Temp 97.8 F 12/10/22 07:51 Pulse 85 12/10/22 07:51 Resp 20 12/10/22 07:51 BP 123/60 12/10/22 07:51 Pulse Ox 95 12/10/22 07:51 O2 Del Method 12/10/22 07:51 O2 Flow Rate 2 12/10/22 07:51 FiO2 80 12/05/22 13:31 Intake & Output 12/09/22 12/10/22 12/10/22 18:59 06:59 18:59 Intake Total 440 / 1180 740 / 1180 Output Total 750 / 800 50 / 800 Balance -310 / 380 690 / 380 Urine Output (Average ml/kg/hr) 0.56 Intake: Intake, Oral Amount 240 / 780 540 / 780 Intake, IV Amount 200 / 400 200 / 400 Piperacillin Sodium/Tazobactam 200 / 400 200 / 400 4.5 gm In 0.9 % Sodium Chloride 100 ml @ 200 mls/hr IV Q6H [facility] Rx#:[id number] Output: Output, Urine Amount 750 / 750 Output, Chest Tube Drainage 50 / 50 Amount Left Lateral Chest 50 / 50 Other: Breakfast % Eaten 100% Number of Unmeasured Voids 3 1 Number of Bowel Movements 1 Urine Bedside Commode Bedside Commode Urine Color Yellow Yellow Last Bowel Movement 12/10/22 Stool Bedside Commode Stool Amount Large Stool Color Brown Stool Consistency Semi Formed Weight 111 kg - Routine HEENT Exam Head: Present: normocephalic ENT: Present: mucous membranes moist - Routine Neck Exam Present: supple - Routine Respiratory Exam Present: decreased breath sounds. Absent: CTAB - Routine Cardiovascular Exam Cardiovascular: Present: RRR, S1, S2 - Routine Abdominal Exam Present: soft, nontender - Routine Extremities Exam Present: nontender - Routine Skin Exam Present: intact - Routine Neurological Exam Present: alert, oriented X3 Hem/Onc Consult Result - Labs CBC & Chem 7: 12/11/22 18:13 12/08/22 07:40 Labs: Short CBC 12/10/22 Range/Units 06:01 Hgb 7.4 L (14.0-18.0) g/dl Hct 23.2 L (42.0-52.0) % Liver Function 12/09/22 Range/Units 11:28 Total Bilirubin 0.4 (0.0-1.0) mg/dL AST 29 (5-37) U/L ALT 11 (0-40) U/L Alkaline Phosphatase 49 (39-117) U/L Albumin 1.6 L (3.5-5.0) g/dL Assessment and Plan Patient Active problem list reviewed?: Yes (1) Elevated INR Status: Acute Assessment and plan: This is a pleasant 42-year-old gentleman who presented on 11/26 with chest pain shortness of breath and failure to thrive. He was noted to have eft cavitary pneumonia and left hydropneumothorax. A chest tube was placed in left lower pleural space and pt under tPA therapy. A second chest tube was placed on 12/06/22. He has had two subsequent rounds of tPA /dornase administration with 600 cc of serosanguineous?fluid output after first therapy and an additioanl 210 cc of serosang fluid after second administration. His left-sided chest tube remains on -20 low wall suction overnight and continues not to show any detectable air leak. The initial plan was to administer a third dose of tPA/dornase, however his INR has increased to 1.9 which increases his risk of bleeding with fibrinolysis administration.. His hematocrit has been stable at 23.4 over the last three days. Morning chest x-ray shows no significant change in the pleural based opacity along the left hemithorax as well as no change in patchy airspace opacity. He has been noted to have an elevated INR. Serial INRs: 1.3/1.4/1.5/1.9/1.3/1.3. DIFFERENTIAL DIAGNOSIS: 1. VITAMIN K DEFICIENCY: This could be on account antibiotic use on nutritional basis. This is most likely. 2. LIVER DISEASE: Liver cirrhosis can cause deficiencies off factor II, Vii, IX, and X. 3. DIC: Be related to the infection. 4. FACTOR 7 DEFICIENCY: Isolated factor 7 deficiency would cause a prolonged PT with a normal PTT. PLAN: I will proceed with further evaluation. Follow-up LFTs. Check DIC screen: Fibrinogen 624. D-dimer 5296. Check PTT: 30.4. Would give a trial of vitamin K replacement therapy. Will make further recommendations based upon the above results. Thank you, Cc: Dr. Cruz. Addendum: Coags improved with vitamin K replacement. PT 14.3. INR 1.2. - Time Spent With Patient Time Spent with Patient (in minutes): 30
[2022-12-10 11:06] LABS: Fibrinogen 624 MG/DL (259-690)
[2022-12-10 11:08] LABS: Partial Thromboplastin Time 30.4 SEC (26.0-36.4)
[2022-12-10 11:20] LABS: Alanine Aminotransferase 11 U/L (0-40); Albumin Level 1.6 g/dL (3.5-5.0); Alkaline Phosphatase 47 U/L (39-117); Aspartate Amino Transferase 25 U/L (5-37); Bilirubin Direct 0.2 mg/dL (0.0-0.5); Bilirubin Total 0.3 mg/dL (0.0-1.0); Total Protein 7.3 g/dL (6.5-8.0)
--- NOTE | 2022-12-10 14:16 | HO.PM.IMPN ---
Subjective Subjective Date of Service: 12/10/22 Interval History: f/u on hydropneumothorax, pneumonia s/p chest tube and undergoing chemical decordication, and believed to be suffering from mucus plug Review of Systems oxygen demand improving Has dry cough, denies any shortness of breath or chest pain. Physical Exam Vital Signs: Vital Signs: Last Vital Signs Temp 96.9 F 12/10/22 11:33 Pulse 73 12/10/22 11:33 Resp 20 12/10/22 11:33 BP 110/55 L 12/10/22 11:33 Pulse Ox 98 12/10/22 11:33 O2 Del Method 12/10/22 11:33 O2 Flow Rate 2 12/10/22 11:33 FiO2 80 12/05/22 13:31 BMI result Body Mass Index 32.3 General: AO X 3, no acute distress Resp:? diminished on right side, right chest tube in place with drainage CVS: S1,S2,RRR GI: +BS, NT, no distention Skin: No rash Neuro:? motor grossly intact Psych: appropriate affect Objective Data Active Medications Acetaminophen (Acetaminophen 325 Mg Tablet) 650 mg PO Q6H PRN PRN Reason: Pain, Mild (Pain Scale 1-3) Last Admin: 12/09/22 21:32 Dose: 650 mg Documented By: BRYSON Bisacodyl (Bisacodyl 5 Mg Tablet.) 5 mg PO BEDTIME [facility] Last Admin: 12/09/22 21:31 Dose: 5 mg Documented By: BRYSON Buprenorphine/Naloxone (Buprenorphine/Naloxone 2/0.5mg Film) 1 film SUBLINGUAL DAILY [facility] Last Admin: 12/10/22 10:22 Dose: Not Given Documented By: JADEN Non-Admin Reason: Patient Refused Divalproex Sodium (Divalproex Sodium 500 Mg Tablet.) 2,000 mg PO BEDTIME [facility] Last Admin: 12/09/22 21:30 Dose: 2,000 mg Documented By: BRYSON Docusate Sodium (Docusate Sodium 100 Mg Capsule) 100 mg PO DAILY PRN PRN Reason: Constipation Last Admin: 12/09/22 21:31 Dose: 100 mg Documented By: BRYSON Enoxaparin Sodium (Enoxaparin Sodium 40 Mg/0.4 Ml Syringe) 40 mg SUBCUT Q24H [facility] Last Admin: 12/04/22 19:49 Dose: Not Given Documented By: JOHN Non-Admin Reason: Patient Refused Ferrous Sulfate (Ferrous Sulfate 300 Mg/5 Ml Liquid) 300 mg PO BIDWM [facility] Last Admin: 12/10/22 10:22 Dose: 300 mg Documented By: JADEN Piperacillin Sod/Tazobactam (Sod 4.5 gm/ Sodium Chloride) 100 mls @ 200 mls/hr IV Q6H [facility] Last Infusion: 12/10/22 11:10 Dose: 0 mls/hr Documented By: JADEN Sodium Chloride (0.9 % Sodium Chloride Flush 3 Ml Syringe) 3 ml IVFLUSH QSHIFT [facility] Last Admin: 12/10/22 10:22 Dose: 3 ml Documented By: JADEN Labs 12/10/22 06:01 12/08/22 07:40 Labs: Laboratory Results - last 24 hr 12/10/22 12/10/22 12/10/22 06:01 06:01 08:16 PT 14.7 H 15.3 H INR 1.3 H 1.3 H APTT 30.4 Fibrinogen 624 Total Bilirubin 0.3 Direct Bilirubin 0.2 AST 25 ALT 11 Alkaline Phosphatase 47 Total Protein 7.3 Albumin 1.6 L Assessment and Plan (1) Overweight: Status: Acute (2) Pleural effusion: Status: Acute (3) Sepsis with acute hypoxic respiratory failure: Status: Acute (4) Pneumonia: Status: Acute Plan 42yo M with OUD on Suboxone (abstinent of heroin x 2yr), recently incarcerated x8mo, presenting after 2 weeks of worsening cough and dyspnea-Admitted for severe sepsis with hypoxia and SIMBA due to PNA, found to have multifocal cavitary PNA-likely streptococcal, complicated by hydropneumothorax, now status post placement of chest tube? in ICU, underwent chemical decortication. CT finding unchanged and concern of mucus plug so there is plan for bronch on 12/05. # severe sepsis due to multifocal cavitary [id number]-[id number] pneumonia, likely streptococcal. - on vancomycin 11/27-, pip-delano 11/27-, and azithromycin 11/26- - airborne precautions, T-spot, ID + Pulm following, AFB smear/Cx x3 - Legionella + pneumococcal Ags pending - MRSA swab POSITIVE - HIV Ab/Ag negative - TTE no vegetation AFB and Pleural ADA is pending. ?T spot is negative. plan: ? Hydropneumothorax status post left-sided chest tube undergoing chemical decortication. Continue to titrate off supplemental oxygen as tolerated.? ?left chest tube to be placement today apex of loculated left pleural effusion by IR.?cytology also added. s/p bronchoscopy 2 days back -cultures sent. wbc improved thoracic surgery-s/p chest tube removal left side.cxr this morning seems ?Better expanded left lung with a left apical pigtail catheter is stable.? Continue chest PT, mucolytcs, and aggressive pulmonary toileting with IS/acapella should be done.?chest tube mangement as per surgery. ?Infectious Disease follow up appreciated, Culture and pathology unremarkable so far- vanco dced and Zosyn. ?acute hypoxemic respiratory failure possibly sec to above. off oxygen,moniter sats. SIMBA - suspect prerenal vs septic ATN.? resolved after fluid resuscitation. ?OUD - Suboxone ?mood disorder - continue valproate, olanzapine, prazosin, mirtazapine VTE ppx:on hold? LMWH for chest tube placement. ? INR on high side likely? from acute illness, monitor possible nutrional component -added vitamin k. ?Underlying bipolar disorder. ? Opioid dependence.? Suboxone overweight : encouraged to lose weight. Acute blood loss anemia on chronic anemia normocytic: Multifactorial:? On going fibrinlysis , chest tube also draining some pinkish liquids) iron studies ,added iron moniter h/h if h/h <7.5 ,consider transfusion. inr also elevated -possible nutritional-will check ptt ,fibrinogen in am . Prophylaxis:?hold Lovenox due to anemia, scd. Diet:? Regular Need for inpatient:sepsis sec to pneumonia , Left sided with hydropneumothorax and has chest tube and acute ill and may need additiaonal surigical intervention-need iv antibiotics ,new chest tube placement for pleural effusion. Time Spent With Patient Time: Total time managing care of this patient today ____ minutes. Quality Stroke Does the patient have a stroke diagnosis?: No VTE Prior VTE?: No VTE Risk Level:: Medical - moderate - high VTE Device Contraindication: Treatment Not Indicated VTE Drug Contraindication: N/A - Med Ordered
--- NOTE | 2022-12-10 14:19 | P.PNIM_ITS ---
Subjective Subjective Date of Service: 12/10/22 Interval History: f/u on hydropneumothorax, pneumonia s/p chest tube and undergoing chemical decordication, and believed to be suffering from mucus plug Review of Systems oxygen demand improving Has dry cough, denies any shortness of breath or chest pain. Physical Exam Vital Signs: Vital Signs: Last Vital Signs Temp 96.9 F 12/10/22 11:33 Pulse 73 12/10/22 11:33 Resp 20 12/10/22 11:33 BP 110/55 L 12/10/22 11:33 Pulse Ox 98 12/10/22 11:33 O2 Del Method 12/10/22 11:33 O2 Flow Rate 2 12/10/22 11:33 FiO2 80 12/05/22 13:31 BMI result Body Mass Index 32.3 General: AO X 3, no acute distress Resp:? diminished on right side, chest tube drainin minimum CVS: S1,S2,RRR GI: +BS, NT, no distention Skin: No rash Neuro:? motor grossly intact Psych: appropriate affect Objective Data Active Medications Acetaminophen (Acetaminophen 325 Mg Tablet) 650 mg PO Q6H PRN PRN Reason: Pain, Mild (Pain Scale 1-3) Last Admin: 12/09/22 21:32 Dose: 650 mg Documented By: BRYSON Bisacodyl (Bisacodyl 5 Mg Tablet.) 5 mg PO BEDTIME [facility] Last Admin: 12/09/22 21:31 Dose: 5 mg Documented By: BRYSON Buprenorphine/Naloxone (Buprenorphine/Naloxone 2/0.5mg Film) 1 film SUBLINGUAL DAILY [facility] Last Admin: 12/10/22 10:22 Dose: Not Given Documented By: JADEN Non-Admin Reason: Patient Refused Divalproex Sodium (Divalproex Sodium 500 Mg Tablet.) 2,000 mg PO BEDTIME [facility] Last Admin: 12/09/22 21:30 Dose: 2,000 mg Documented By: BRYSON Docusate Sodium (Docusate Sodium 100 Mg Capsule) 100 mg PO DAILY PRN PRN Reason: Constipation Last Admin: 12/09/22 21:31 Dose: 100 mg Documented By: BRYSON Enoxaparin Sodium (Enoxaparin Sodium 40 Mg/0.4 Ml Syringe) 40 mg SUBCUT Q24H [facility] Last Admin: 12/04/22 19:49 Dose: Not Given Documented By: JOHN Non-Admin Reason: Patient Refused Ferrous Sulfate (Ferrous Sulfate 300 Mg/5 Ml Liquid) 300 mg PO BIDWM [facility] Last Admin: 12/10/22 10:22 Dose: 300 mg Documented By: JADEN Piperacillin Sod/Tazobactam (Sod 4.5 gm/ Sodium Chloride) 100 mls @ 200 mls/hr IV Q6H [facility] Last Infusion: 12/10/22 11:10 Dose: 0 mls/hr Documented By: JADEN Sodium Chloride (0.9 % Sodium Chloride Flush 3 Ml Syringe) 3 ml IVFLUSH QSHIFT [facility] Last Admin: 12/10/22 10:22 Dose: 3 ml Documented By: JADEN Labs 12/10/22 06:01 12/08/22 07:40 Labs: Laboratory Results - last 24 hr 12/10/22 12/10/22 12/10/22 06:01 06:01 08:16 PT 14.7 H 15.3 H INR 1.3 H 1.3 H APTT 30.4 Fibrinogen 624 Total Bilirubin 0.3 Direct Bilirubin 0.2 AST 25 ALT 11 Alkaline Phosphatase 47 Total Protein 7.3 Albumin 1.6 L Assessment and Plan (1) Overweight: Status: Acute (2) Pleural effusion: Status: Acute (3) Sepsis with acute hypoxic respiratory failure: Status: Acute (4) Pneumonia: Status: Acute Plan 42yo M with OUD on Suboxone (abstinent of heroin x 2yr), recently incarcerated x8mo, presenting after 2 weeks of worsening cough and dyspnea-Admitted for severe sepsis with hypoxia and SIMBA due to PNA, found to have multifocal cavitary PNA-likely streptococcal, complicated by hydropneumothorax, now status post placement of chest tube? in ICU, underwent chemical decortication. CT finding unchanged and concern of mucus plug so there is plan for bronch on 12/05. # severe sepsis due to multifocal cavitary [id number] pneumonia, likely st reptococcal. - on vancomycin 11/27-, pip-delano 11/27-, and azithromycin 11/26 - airborne precautions, T-spot, ID + Pulm following, AFB smear/Cx x3 - Legionella + pneumococcal Ags pending - MRSA swab POSITIVE - HIV Ab/Ag negative - TTE no vegetation AFB and Pleural ADA is pending. ?T spot is negative. plan: ? Hydropneumothorax status post left-sided chest tube undergoing chemical decortication. Continue to titrate off supplemental oxygen as tolerated.? ?left chest tube to be placement today apex of loculated left pleural effusion by IR.?cytology negative s/p bronchoscopy 2 days back -cultures sent. wbc improved thoracic surgery-s/p chest tube removal left side.cxr this morning seems ?Better expanded left lung with a left apical pigtail catheter is stable.? Continue chest PT, mucolytcs, and aggressive pulmonary toileting with IS/acapella should be done.?chest tube mangement as per surgery. ?Infectious Disease follow up appreciated, Culture and pathology unremarkable so far- vanco dced and Zosyn. ?acute hypoxemic respiratory failure possibly sec to above. off oxygen,moniter sats. SIMBA - suspect prerenal vs septic ATN.? resolved after fluid resuscitation. ?OUD - Suboxone ?mood disorder - continue valproate, olanzapine, prazosin, mirtazapine VTE ppx:on hold? LMWH for chest tube placement. ?Underlying bipolar disorder. ? Opioid dependence.? Suboxone overweight : encouraged to lose weight. Acute blood loss anemia on chronic anemia normocytic: Multifactorial:? On going fibrinlysis , chest tube also draining some pinkish liquids) iron studies ,added iron moniter h/h if h/h <7.5 ,consider transfusion. inr also elevated -? INR on high side likely? from acute illness, monitor possible nutrional component possible nutritional-will check ptt ,fibrinogen . lft's normal . added vitalin k Prophylaxis:?hold Lovenox due to anemia, scd. Diet:? Regular Need for inpatient:sepsis sec to pneumonia , Left sided with hydropneumothorax and has chest tube and acute ill and may need additiaonal surigical intervention-need iv antibiotics ,new chest tube placement for pleural effusion. Time Spent With Patient Time: Total time managing care of this patient today ____ minutes. Quality Stroke Does the patient have a stroke diagnosis?: No VTE Prior VTE?: No VTE Risk Level:: Medical - moderate - high VTE Device Contraindication: Treatment Not Indicated VTE Drug Contraindication: N/A - Med Ordered
--- NOTE | 2022-12-10 20:45 | P.PNTS_ITS ---
Subjective Subjective Date of Service: 12/10/22 Interval history: 42 y/o gentleman hospitalized since November 26 with left cavitary pneumonia and left hydropneumothorax.? CT was placed previously in left lower pleural space and pt under tPA therapy.? A second chest tube was placed on 12/06/22 and patient has had two subsequent rounds of tPA /dornase administration with 600 cc of serosanguineous?fluid output after first therapy and an additioanl 210 cc of serosang fluid after second administration.? His left-sided chest tube remains on -20 low wall suction overnight and continues not to show any detectable air leak.? CT chest shows some interval improvement in anterolateral loculated effusion near apex but the remainder appears very similar to prior CT scan. Physical Exam Vital Signs: Vital Signs: Last Vital Signs Temp 98.6 F 12/10/22 19:47 Pulse 78 12/10/22 19:47 Resp 19 12/10/22 19:47 BP 149/76 H 12/10/22 19:47 Pulse Ox 98 12/10/22 19:47 O2 Del Method 12/10/22 19:47 O2 Flow Rate 2 12/10/22 19:47 FiO2 80 12/05/22 13:31 BMI result Body Mass Index 32.3 Const: Other: pt is lying in bed. He denies SOB, pain around chest tube site and has said that his cough has improved. He is no longer coughing up as much of boo secretions. He did ask for his mucinex. HEENT: Other: NC/AT, EOMI, no sinus tenderness Eyes: Other: Sclera non-icteric Neck: Other: No JVD and no cervical lymphadenopathy Chest: Other: Left chest tube to -20 mm Hg suction with no air leak, 50 cc of straw colored fluid/24 hours. Line flushed and is patent. Resp: Other: diminshed at bases bilaterally without rhonchi or wheeze Cardio: Other: RRR GI: Other: abdomen soft nontender and nondistended. : Other: Voiding freely Skin: Other: No rashes Neuro: Other: grossly intact Extrem: Other: no calf tenderness bilaterally Psych: Other: child-like Procedures Date of Service Date of Service: 12/10/22 Progress Note: A&P Assessment and plan (1) Hydropneumothorax: Status: Acute (2) Cavitary pneumonia: Status: Acute Assessment and Plan: Mr. Wilkins is a 42 year old male with cavitary pneumonia and a left sided hydropneumothoax. TB being ruled out - remains on precautions. S/P ?28Fr chest tube insertion (Dr. Mcdowell) on 11/30/22 S/P ?Chemical decortication (Dr. Mcdowell) on 11/30/22, 12/01/22, and 2S/P? S/P ?8.5 [place] pigtail catheter placed by Interventional Radiology on 12/06 S/P ?Chemical decortication on 0 8 and 12/08 by thoracic surgery ?No Chemical decorotication on 12/09 - due to elevated INR of 1.9 Left hydropneumothorax and cavitary pneumonia * Plan for chemical fibrinolysis tomorrow. * Bronchial washing :? Gram stain negative.? Cultures Yeast < 10 CFU.? * Studies from 11/30:? Anerobic pending , AFB and fungal cultures pending? * Thoracic Surgery will continue to monitor/manage chest tube.? Continue chest tube to -20 mm Hg suction and follow outputs. * Continue chest PT, mucolytcs, and aggressive pulmonary toileting with IS/flutter valve should be done.? pt is pulling nearly 2500 on IS * ID following - their recommendations:? Continue antibiotics: Zosyn for now and IV ertapenem upon discharge unless changes for 3-6 weeks (now day 10 antibioti cs)..?Leukocytosis? is trending downward to 10.? * Serum albumin 1.6.? Severe hypoalbuminemia.? Consult Nutrition.? Could also be diagnostic of infectious/inflammatory pulmonary disease. Time Spent With Patient Time: Total time managing care of this patient today ____ minutes. Quality Stroke Does the patient have a stroke diagnosis?: No VTE Prior VTE?: No VTE Risk Level:: Medical - moderate - high VTE Device Contraindication: Treatment Not Indicated VTE Drug Contraindication: N/A - Med Ordered
[2022-12-10] MEDS: Divalproex Sodium 500 MG TABLET.DR 2000 MG PO (21:42)
[2022-12-11] MEDS: Piperacillin Sodium/Tazobactam 4.5 GM in 0.9 % Sodium Chloride 100 ML IV ×4 (03:02→21:53)
[2022-12-11 03:07] VITALS: BP 136/70; PULSE 80; RESP 20; TEMP 36.6; O2SAT 97
[2022-12-11 07:16] LABS: D Dimer High Sensitivity 5296 NG/ML
[2022-12-11 07:32] LABS: Hematocrit 23.9 % (42.0-52.0); Hemoglobin 7.7 g/dl (14.0-18.0)
[2022-12-11 07:33] LABS: INTERNATIONAL NORM RATIO 1.2 (0.9-1.1); Prothrombin Time 14.3 SEC (10.0-13.1)
[2022-12-11 08:00] VITALS: BP 136/66; PULSE 96; RESP 20; TEMP 36.4; O2SAT 95
[2022-12-11] MEDS: Ferrous Sulfate 300 MG/5 ML LIQUID PO ×2 (10:24→16:05)
[2022-12-11] MEDS: 0.9 % Sodium Chloride Flush 3 ML SYRINGE IVFLUSH ×2 (10:25→16:09)
--- NOTE | 2022-12-11 10:44 | HO.PM.IMPN ---
Subjective Subjective Date of Service: 12/11/22 Interval History: f/u on hydropneumothorax, pneumonia s/p chest tube and undergoing chemical decordication, and believed to be suffering from mucus plug Review of Systems oxygen demand improving Has dry cough, denies any shortness of breath or chest pain. Physical Exam Vital Signs: Vital Signs: Last Vital Signs Temp 97.6 F 12/11/22 08:00 Pulse 96 12/11/22 08:00 Resp 20 12/11/22 08:00 BP 136/66 12/11/22 08:00 Pulse Ox 95 12/11/22 08:00 O2 Del Method 12/11/22 08:00 O2 Flow Rate 2.5 12/11/22 08:00 FiO2 80 12/05/22 13:31 BMI result Body Mass Index 32.3 ? General: AO X 3, no acute distress Resp:? diminished on right side, chest tube drainin minimum CVS: S1,S2,RRR GI: +BS, NT, no distention Skin: No rash Neuro:? motor grossly intact Psych: appropriate affect Objective Data Active Medications Acetaminophen (Acetaminophen 325 Mg Tablet) 650 mg PO Q6H PRN PRN Reason: Pain, Mild (Pain Scale 1-3) Last Admin: 12/09/22 21:32 Dose: 650 mg Documented By: BRYSON Bisacodyl (Bisacodyl 5 Mg Tablet.) 5 mg PO BEDTIME [facility] Last Admin: 12/10/22 21:45 Dose: Not Given Documented By: ALETHA Non-Admin Reason: Patient Refused Buprenorphine/Naloxone (Buprenorphine/Naloxone 2/0.5mg Film) 1 film SUBLINGUAL DAILY [facility] Last Admin: 12/10/22 10:22 Dose: Not Given Documented By: JADEN Non-Admin Reason: Patient Refused Divalproex Sodium (Divalproex Sodium 500 Mg Tablet.) 2,000 mg PO BEDTIME [facility] Last Admin: 12/10/22 21:42 Dose: 2,000 mg Documented By: ALETHA Docusate Sodium (Docusate Sodium 100 Mg Capsule) 100 mg PO DAILY PRN PRN Reason: Constipation Last Admin: 12/09/22 21:31 Dose: 100 mg Documented By: BRYSON Enoxaparin Sodium (Enoxaparin Sodium 40 Mg/0.4 Ml Syringe) 40 mg SUBCUT Q24H [facility] Last Admin: 12/04/22 19:49 Dose: Not Given Documented By: JOHN Non-Admin Reason: Patient Refused Ferrous Sulfate (Ferrous Sulfate 300 Mg/5 Ml Liquid) 300 mg PO BIDWM [facility] Last Admin: 12/10/22 16:26 Dose: 300 mg Documented By: JADEN Piperacillin Sod/Tazobactam (Sod 4.5 gm/ Sodium Chloride) 100 mls @ 200 mls/hr IV Q6H [facility] Last Infusion: 12/11/22 03:49 Dose: 0 mls/hr Documented By: ALETHA Sodium Chloride (0.9 % Sodium Chloride Flush 3 Ml Syringe) 3 ml IVFLUSH QSHIFT [facility] Last Admin: 12/10/22 21:46 Dose: 3 ml Documented By: ALETHA Labs 12/11/22 06:13 12/08/22 07:40 Labs: Laboratory Results - last 24 hr 11/30/22 12/10/22 12/10/22 09:02 06:01 08:16 PT INR APTT 30.4 Fibrinogen 624 D-Dimer High Sensitivty Total Bilirubin 0.3 Direct Bilirubin 0.2 AST 25 ALT 11 Alkaline Phosphatase 47 Total Protein 7.3 Albumin 1.6 L Ref Lab Test Result SEE NOTE 12/11/22 12/11/22 06:13 06:13 PT 14.3 H INR 1.2 H APTT Fibrinogen D-Dimer High Sensitivty 5296 Total Bilirubin Direct Bilirubin AST ALT Alkaline Phosphatase Total Protein Albumin Ref Lab Test Result Assessment and Plan (1) Overweight: Status: Acute (2) Pleural effusion: Status: Acute (3) Sepsis with acute hypoxic respiratory failure: Status: Acute (4) Pneumonia: Status: Acute (5) Elevated INR: Status: Acute (6) Hypoalbuminemia: Status: Acute (7) Over weight: Status: Acute (8) Acute blood loss anemia: Status: Acute Plan Hospital day:15. 42yo M with OUD on Suboxone (abstinent of heroin x 2yr), recently incarcerated x8mo, presenting after 2 weeks of worsening cough and dyspnea-Admitted for severe sepsis with hypoxia and SIMBA due to PNA, found to have multifocal cavitary PNA-likely streptococcal, complicated by hydropneumothorax, now status post placement of chest tube? in ICU, underwent chemical decortication. CT finding unchanged and concern of mucus plug so there is plan for bronch on 12/05. severe sepsis due to multifocal cavitary [id number] pneumonia, likely streptococcal. intially vancomycin 11/27-, pip-delano 11/27-, and azithromycin 11/26 - airborne precautions, T-spot, ID + Pulm following, AFB smear/Cx x3 - Legionella + pneumococcal Ags pending - MRSA swab POSITIVE - HIV Ab/Ag negative - TTE no vegetation AFB and Pleural ADA is pending. ?T spot is negative. plan: sepsis seems to be resolved. ? Hydropneumothorax status post left-sided chest tube undergoing chemical decortication. Continue to titrate off supplemental oxygen as tolerated.? Cxr today-still has loculated effusion ,pitail catheter inplace No change in cavitary left upper lobe pneumonia compared to 12/09/2022. cytology negative for malignant cells,s/p bronchoscopy(12/05/22) -culture noted-d/w Id -no change in antibiotics at present. wbc improved Continue chest PT, mucolytcs, and aggressive pulmonary toileting with IS/acapella should be done.?chest tube mangement as per surgery. ?Infectious Disease follow up appreciated, Culture and pathology unremarkable soafar -continue Zosyn. thoracic surgery-s/p chest tube removal left side- still has loculated effusion , need Ct surgery follow up ?acute hypoxemic respiratory failure possibly sec to above. continue as above, taper oxygen. SIMBA- suspect prerenal vs septic ATN.? resolved after fluid resuscitation. ?OUD- continue Suboxone. ?mood disorder- continue valproate, olanzapine, prazosin, mirtazapine. ?Underlying bipolar disorder. ? Opioid dependence.? Suboxone overweight : encouraged to lose weight. Acute blood loss anemia on chronic anemia normocytic: Multifactorial:? On going fibrinlysis , chest tube also draining some pinkish liquids) iron studies( low iron ,tibc ,boderline low iron sats ,ferritin , b12 and folate normal-seems these related Acute blood loss anemia. added iron.type and cross done 12/08/22 denies any melena moniter h/h: 7.7 /23.9 moniter h/h INR on high side likely? from acute illness,possible nutrional component hemtaolgic workup reviewed -likely inr elevated due to above . lft's normal .received vit kx2 days.inr improved. overweight : advised to loose weight. Hypoalbuminemia : possible sec to low po intake will add it support specialist sara added supplements. Prophylaxis:?hold Lovenox due to anemia, scd. Diet:? Regular Need for inpatient:pneumonia /persistent loculated effusion and has chest tube and acute ill and may need additiaonal surigical intervention-need iv antibiotics ,new chest tube placement for pleural effusion. eleavted inr /anemia -needs cbc and inr moniterin Time Spent With Patient Time: Total time managing care of this patient today ____ minutes. Quality Stroke Does the patient have a stroke diagnosis?: No VTE Prior VTE?: No VTE Risk Level:: Medical - moderate - high VTE Device Contraindication: Treatment Not Indicated VTE Drug Contraindication: N/A - Med Ordered
--- NOTE | 2022-12-11 11:20 | P.PNTS_ITS ---
Subjective Subjective Date of Service: 12/11/22 Interval history: 42 y/o gentleman hospitalized since November 26 with left cavitary pneumonia and left hydropneumothorax.? CT was placed previously in left lower pleural space and pt under tPA therapy.? A second chest tube was placed on 12/06/22 and patient has had two subsequent rounds of tPA /dornase administration with 600 cc of serosanguineous?fluid output after first therapy and an additioanl 210 cc of serosang fluid after second administration.? His left-sided chest tube remains on -20 low wall suction overnight and continues not to show any detectable air leak or drainage. CXR this am shows pigtail in place. Physical Exam Vital Signs: Vital Signs: Last Vital Signs Temp 97.6 F 12/11/22 08:00 Pulse 96 12/11/22 08:00 Resp 20 12/11/22 08:00 BP 136/66 12/11/22 08:00 Pulse Ox 95 12/11/22 08:00 O2 Del Method 12/11/22 08:00 O2 Flow Rate 2.5 12/11/22 08:00 FiO2 80 12/05/22 13:31 BMI result Body Mass Index 32.3 last febrile on 12/10/22 at midnight to 100 F Const: Other: pt is lying in bed, cooperative.? He denies SOB, pain around chest tube site and has said that his cough has improved.? Today he is coughing up boo secretions X 2 in my presence. He said he did not sleep well last night. ROS: denies fever, chills, shortness of breath, nausea, vomiting, abdominal pain, or calf pain.? HEENT: Other: NC/AT, no sinus tenderness Eyes: Other: sclera noniceric Neck: Other: No JVD, no cervical lymphadenopathy Chest: Other: Right pigtail connected to -20 suction and no drainage overnight and no air leak. Tube is patent - flushed with NS. Resp: Other: diminished at right base. No rhonchi or wheezes present. Cardio: Other: RRR GI: Other: Abdomen soft non-tender and non-distended. : Other: Voiding freely Skin: Other: No rashes. Multiple tatoos over body. Neuro: Other: grossly intact Extrem: Other: trace peripheral edema Psych: Other: indifferent today Procedures Date of Service Date of Service: 12/11/22 Progress Note: A&P Assessment and plan (1) Cavitary pneumonia: Status: Acute (2) Hydropneumothorax: Status: Acute Plan Mr. Wilkins is a 42 year old male with cavitary pneumonia, streptococcal, MRSA and a left sided hydropneumothoax. TB being ruled out - remains on precautions. S/P ?28Fr chest tube insertion (Dr. Mcdowell) on 11/30/22 S/P ?Chemical decortication (Dr. Mcdowell) on 11/30/22, 12/01/22, and 12/02/2S/P? S/P ?8.5 [place] pigtail catheter placed by Interventional Radiology on 12/06 S/P ?Chemical decortication on and 12/08 by thoracic surgery ?No Chemical decorotication on 12/09 - due to elevated INR of 1.9 S/P Chemical decortication (tPA/dornase) on 12/11 by Thoracic Surgery Left hydropneumothorax and cavitary pneumonia * Plan for chemical fibrinolysis again tomorrow as long as INR, PT, PTT remains normal. * Thoracic Surgery will continue to monitor/manage chest tube.? Continue chest tube to -20 mm Hg suction and follow output * Bronchial washing :? Gram stain negative.? Cultures Yeast < 10 CFU.? * Studies from 11/30:? Anerobic pending and AFB and fungal cultures no growth to date (pending) * Continue chest PT, mucolytcs, and aggressive pulmonary toileting with IS /flutter valve should be done.? pt continues to pull nearly 2500 on IS * ID following - their recommendations:? Continue antibiotics: Zosyn for now and IV ertapenem upon discharge unless changes for 3-6 weeks (now day 10 antibiotics). Recheck CBC for white count and platelet count. * Serum albumin 1.6.? Severe hypoalbuminemia.? Nutrition consult pending.? Alteplase 4mg diluted in 50cc normal saline / Dornase 5mg dilauted in 30cc normal saline instilled through the right chest tube @ 12:15. Patient tolerated this without issues. Plan: AFTER ALTEPLASE Keep chest tube clamped x 2 hour for dwell. Have patient change positions frequently during this time to help disperse the medication throughout the pleural space. Monitor for any respiratory distress, hypoxemia, significant chest discomfort, or hemodynamic instability. This information was communicated with the RNFloyd at time of medication administration. Thoracic team will return in 2 hours to give Dornase. Call Thoracic Surgery with any questions or concerns. AFTER DORNASE Keep chest tube clamped x 4 hour for dwell. Have patient change positions frequently during this time to help disperse the medication throughout the pleural space. RN TO UNCLAMP CHEST TUBE @ 18:[address] back to [facility] drainage on wall suction. Monitor for SANGUINOUS output >100cc in 1 hour or >400cc in 8 hours, or any s/sx of symptomatic anemia. Monitor for any output >1000cc after opening the stopcock. Monitor for any respiratory distress, hypoxemia, significant chest discomfort, or hemodynamic instability. This information was communicated with the RN at time of medication administration. Call Thoracic Surgery with any questions or concerns. Time Spent With Patient Time: Total time managing care of this patient today ____ minutes. Quality Stroke Does the patient have a stroke diagnosis?: No VTE Prior VTE?: No VTE Risk Level:: Medical - moderate - high VTE Device Contraindication: Treatment Not Indicated VTE Drug Contraindication: N/A - Med Ordered
[2022-12-11 12:00] VITALS: BP 119/59; PULSE 80; RESP 17; TEMP 36.4; O2SAT 96
--- NOTE | 2022-12-11 14:31 | PM.EVENT ---
Event Note Date of Service: 12/11/22 Event Note: Thoracic surgery: Dornase not given due to coughing up light pink sputum after tPA administration. Notified attending. Will check hematocrit later to trend. Has CBC ordered for am. pt is stable. breath sounds same as previously ausculated. pulse ox stable. 2L NC @ 96% Time Spent With Patient Time: Total time managing care of this patient today ____ minutes.
[2022-12-11 15:10] VITALS: BP 132/70; PULSE 89; RESP 18; TEMP 37; O2SAT 98
[2022-12-11 18:23] LABS: Hematocrit 22.8 % (42.0-52.0)
[2022-12-11 20:00] VITALS: BP 134/72; PULSE 94; RESP 19; TEMP 36.9; O2SAT 97
[2022-12-11] MEDS: Divalproex Sodium 500 MG TABLET.DR 2000 MG PO (21:19)
[2022-12-11] MEDS: Acetaminophen 325 MG TABLET 650 MG PO (21:22)
[2022-12-12] VITALS (9 sets, daily range): BP systolic 120–145; BP diastolic 65–92; PULSE 76–104; RESP 14–20; TEMP 36.1–37.8; O2SAT 93–96
[2022-12-12] MEDS: Piperacillin Sodium/Tazobactam 4.5 GM in 0.9 % Sodium Chloride 100 ML IV ×4 (04:13→21:42)
[2022-12-12] MEDS: 0.9 % Sodium Chloride Flush 3 ML SYRINGE IVFLUSH ×4 (04:13→21:42)
[2022-12-12 06:36] LABS: INTERNATIONAL NORM RATIO 1.3 (0.9-1.1); Prothrombin Time 15.5 SEC (10.0-13.1)
[2022-12-12 06:38] LABS: Partial Thromboplastin Time 30.3 SEC (26.0-36.4)
[2022-12-12 07:26] LABS: Basophils Percent Auto 0.3 % (0-2); Eosinophils Percent Auto 0.2 % (0-4); Hematocrit 21.8 % (42.0-52.0); Lymphocytes Absolute Auto 2.6 X10*3/uL (1.2-4.9); Lymphocytes Percent Auto 25.2 % (20-40); MANUAL DIFF FLAG SCAN; Mean Corpuscular HGB Conc 32.1 g/dl (31.0-36.0); Mean Corpuscular Hemoglobin 27.7 pg (27.0-33.0); Mean Corpuscular Volume 86.2 fL (80.0-98.0); Mean Platelet Volume 9.1 fL (9.4-12.4); Monocytes Absolute Auto 1.7 X10*3/uL (0.1-1.2); Monocytes Percent Auto 16.9 % (2-11); Neutrophils Absolute Auto 5.7 x10*3/uL (2.0-8.3); Neutrophils Percent Auto 56.4 % (45-73); Platelet Count 449 X10*3/uL (160-400); Red Blood Count 2.53 X10*6/uL (4.60-5.80); Red Cell Distribution Width 16.7 % (11.0-16.0); SCAN SMEAR FLAG 1; White Blood Count 10.2 X10*3/uL (4.8-10.8)
[2022-12-12 07:39] LABS: SLIDE REVIEW VERIFIED
[2022-12-12 09:13] LABS: Hematocrit 22.7 % (42.0-52.0); Hemoglobin 7.2 g/dl (14.0-18.0)
[2022-12-12] MEDS: Ferrous Sulfate 300 MG/5 ML LIQUID PO ×2 (10:26→15:06)
--- NOTE | 2022-12-12 12:41 | P.PNIM_ITS ---
Subjective Subjective Date of Service: 12/12/22 Interval History: f/u on hydropneumothorax, pneumonia s/p chest tube and undergoing chemical decordication, and believed to be suffering from mucus plug Review of Systems oxygen demand improving Has dry cough, denies any shortness of breath or chest pain. Physical Exam Vital Signs: Vital Signs: Last Vital Signs Temp 97.8 F 12/12/22 11:33 Pulse 85 12/12/22 11:33 Resp 20 12/12/22 11:33 BP 139/65 12/12/22 11:33 Pulse Ox 96 12/12/22 11:31 O2 Del Method 12/12/22 08:00 O2 Flow Rate 2 12/12/22 11:31 FiO2 80 12/05/22 13:31 BMI result Body Mass Index 32.3 General: AO X 3, no acute distress Resp:? diminished on right side, chest tube -not much drainge CVS: S1,S2,RRR GI: +BS, NT, no distention Skin: No rash Neuro:? motor grossly intact Psych: appropriate affect Objective Data Active Medications Acetaminophen (Acetaminophen 325 Mg Tablet) 650 mg PO Q6H PRN PRN Reason: Pain, Mild (Pain Scale 1-3) Last Admin: 12/11/22 21:22 Dose: 650 mg Documented By: ALETHA Bisacodyl (Bisacodyl 5 Mg Tablet.) 5 mg PO BEDTIME [facility] Last Admin: 12/11/22 21:52 Dose: Not Given Documented By: ALETHA Non-Admin Reason: Patient Refused Buprenorphine/Naloxone (Buprenorphine/Naloxone 2/0.5mg Film) 1 film SUBLINGUAL DAILY [facility] Last Admin: 12/12/22 10:32 Dose: Not Given Documented By: JDAEN Non-Admin Reason: Patient Refused Divalproex Sodium (Divalproex Sodium 500 Mg Tablet.) 2,000 mg PO BEDTIME [facility] Last Admin: 12/11/22 21:19 Dose: 2,000 mg Documented By: ALETHA Docusate Sodium (Docusate Sodium 100 Mg Capsule) 100 mg PO DAILY PRN PRN Reason: Constipation Last Admin: 12/09/22 21:31 Dose: 100 mg Documented By: BRYSON Enoxaparin Sodium (Enoxaparin Sodium 40 Mg/0.4 Ml Syringe) 40 mg SUBCUT Q24H [facility] Last Admin: 12/04/22 19:49 Dose: Not Given Documented By: JOHN Non-Admin Reason: Patient Refused Ferrous Sulfate (Ferrous Sulfate 300 Mg/5 Ml Liquid) 300 mg PO BIDWM [facility] Last Admin: 12/12/22 10:26 Dose: 300 mg Documented By: JADEN Piperacillin Sod/Tazobactam (Sod 4.5 gm/ Sodium Chloride) 100 mls @ 200 mls/hr IV Q6H [facility] Last Infusion: 12/12/22 11:24 Dose: 0 mls/hr Documented By: JADEN Sodium Chloride (0.9 % Sodium Chloride Flush 3 Ml Syringe) 3 ml IVFLUSH QSHIFT [facility] Last Admin: 12/12/22 10:32 Dose: 3 ml Documented By: JADEN Labs 12/12/22 08:57 12/08/22 07:40 Labs: Laboratory Results - last 24 hr 12/12/22 12/12/22 12/12/22 06:21 06:21 06:21 MCV 86.2 MCH 27.7 MCHC 32.1 RDW 16.7 H Plt Count 449 H D MPV 9.1 L Immature Gran % (Auto) 1.0 H Neut % (Auto) 56.4 Lymph % (Auto) 25.2 Elk % (Auto) 16.9 H Eos % (Auto) 0.2 Baso % (Auto) 0.3 Lymph # (Auto) 2.6 Elk # (Auto) 1.7 H Eos # (Auto) 0.0 Baso # (Auto) 0.0 Abs Immat Gran (auto) 0.10 H Absolute Neuts (auto) 5.7 Absolute Nucleated RBC 0.000 Nucleated RBC % (auto) 0.0 Smear Tech's Comments VERIFIED PT 15.5 H INR 1.3 H APTT 30.3 Blood Type Antibody Screen Crossmatch 12/12/22 08:57 MCV MCH MCHC RDW Plt Count MPV Immature Gran % (Auto) Neut % (Auto) Lymph % (Auto) Elk % (Auto) Eos % (Auto) Baso % (Auto) Lymph # (Auto) Elk # (Auto) Eos # (Auto) Baso # (Auto) Abs Immat Gran (auto) Absolute Neuts (auto) Absolute Nucleated RBC Nucleated RBC % (auto) Smear Tech's Comments PT INR APTT Blood Type A Negative Antibody Screen NEGATIVE Crossmatch See Detail Microbiology Microbiology Results: Microbiology 11/30/22 18:30 Fungal Identification - Preliminary Pleural Fluid No growth after 1 week. 11/30/22 06:30 Direct Acid Fast Bacilli Smear - Final Sputum - Expectorated 11/30/22 18:30 Direct Acid Fast Bacilli Smear - Final Pleural Fluid Assessment and Plan (1) Overweight: Status: Acute (2) Pleural effusion: Status: Acute (3) Sepsis with acute hypoxic respiratory failure: Status: Acute (4) Pneumonia: Status: Acute (5) Elevated INR: Status: Acute (6) Hypoalbuminemia: Status: Acute (7) Over weight: Status: Acute (8) Acute blood loss anemia: Status: Acute Plan Hospital day:16. 42yo M with OUD on Suboxone (abstinent of heroin x 2yr), recently incarcerated x8mo, presenting after 2 weeks of worsening cough and dyspnea-Admitted for severe sepsis with hypoxia and SIMBA due to PNA, found to have multifocal cavitary PNA-likely streptococcal, complicated by hydropneumothorax, now status post placement of chest tube? in ICU, underwent chemical decortication. CT finding unchanged and concern of mucus plug so there is plan for bronch on 12/05. severe sepsis due to multifocal cavitary VWT-Dfip-oasou pneumonia, likely streptococcal. intially vancomycin 11/27-, pip-delano 11/27-, and azithromycin 11/26 - airborne precautions, T-spot, ID + Pulm following, AFB smear/Cx x3 - Legionella + pneumococcal Ags pending - MRSA swab POSITIVE - HIV Ab/Ag negative - TTE no vegetation AFB and Pleural ADA is pending. ?T spot is negative. cytology negative for malignant cells,s/p bronchoscopy(12/05/22) -culture noted- d/w Id -no change in antibiotics at present. wbc improved , no fevers Cxr today unchanged -still has loculated effusion ,pitail catheter inplace No change in cavitary left upper lobe pneumonia compared to 12/09/2022. plan: sepsis seems to be resolved. ? Hydropneumothorax status post left-sided chest tube undergoing chemical decortication. Continue to titrate off supplemental oxygen as tolerated.? Continue chest PT, mucolytcs, and aggressive pulmonary toileting with IS/acapella should be done.?chest tube mangement as per surgery. ? Infectious Disease follow up appreciated, Culture and pathology unremarkable soafar -continue Zosyn. thoracic surgery-s/p chest tube removal left side- still has loculated effusion , need Ct surgery follow up ?acute hypoxemic respiratory failure possibly sec to above. continue as above, taper oxygen. SIMBA- suspect prerenal vs septic ATN.? resolved after fluid resuscitation. ?OUD- continue Suboxone. ?mood disorder- continue valproate, olanzapine, prazosin, mirtazapine. ?Underlying bipolar disorder. ? Opioid dependence.? Suboxone overweight : encouraged to lose weight. Acute blood loss anemia on chronic anemia normocytic: Multifactorial:? On going fibrinlysis , chest tube also draining some pinkish liquids) iron studies( low iron ,tibc ,boderline low iron sats ,ferritin , b12 and folate normal-seems these related Acute blood loss anemia. added iron.type and cross done 12/08/22 denies any melena moniter h/h: 7.2/.7 will add 1 prbc transfusion INR on high side likely? from acute illness,possible nutrional component hemtaolgic workup reviewed -likely inr elevated due to above . lft's normal .received vit kx2 days.inr improved. overweight : advised to loose weight. Hypoalbuminemia : possible sec to low po intake will add doctor of pharmacy eval added supplements. Prophylaxis:?hold Lovenox due to anemia, scd. Diet:? Regular Need for inpatient:pneumonia /persistent loculated effusion and has chest tube and acute ill and may need additiaonal surigical intervention-need iv antibiotics ,new chest tube placement for pleural effusion. eleavted inr /anemia -added prbc transfusion. Time Spent With Patient Time: Total time managing care of this patient today ____ minutes. Quality Stroke Does the patient have a stroke diagnosis?: No VTE Prior VTE?: No VTE Risk Level:: Medical - moderate - high VTE Device Contraindication: Treatment Not Indicated VTE Drug Contraindication: N/A - Med Ordered
--- NOTE | 2022-12-12 13:30 | MHC.CLN ---
RE: CONSULT HT 73 WT 244# IBW 184+/-10% PT IS 133% IBW INDICATES OBESE FOR HT, BMI 32.3 ENN: 2161KCALS, 141G PROTEIN, 2350ML FLUID REVIEWED LABS ALBUMIN 1.6 (12/10/22) DIET RX: PT CURRENTLY NPO PREVIOUS PO INTAKE 50/100% CONSULT FOR LOW ALBUMIN: STUDIES DONE SHOW A POOR RELATIONSHIP BETWEEN SERUM PROTEIN LEVELS AND NUTRITION STATUS. MANY FACTORS HAVE BEEN SHOWN TO EFFECT PROTEIN LEVELS INCLUDING INFLAMMATION, LIVER FAILURE, OVERHYDRATION. PLAN: WHEN DIET ADVANCES FROM NPO; RECOMMEND TRIAL OF ENSURE MAX BID TO PROVIDE 300KCALS, 60G PROTEIN MONITOR PO INTAKE AND SUPPLEMENT ACCEPTANCE
--- NOTE | 2022-12-12 14:14 | MHC.CM.PN ---
Per MD rounds discharge late this week or next week. Patient continues with CT to suction. Thoracic surgery is managing CT. DP home with [facility] family transport.
--- NOTE | 2022-12-12 15:00 | PC.NURSE ---
Assumed care of patient at this time.
--- NOTE | 2022-12-12 15:47 | P.PNTS_ITS ---
Subjective Subjective Date of Service: 12/12/22 Interval history: 42 y/o gentleman hospitalized since November 26 with left cavitary pneumonia and left hydropneumothorax.? CT was placed previously in left lower pleural space and pt under tPA therapy.? A second chest tube was placed on 12/06/22 and patient has had two subsequent rounds of tPA /dornase administration with 600 cc of serosanguineous?fluid output after first therapy and an additioanl 210 cc of serosang fluid after second administration.?Third round of tPA administration alone yielded 240 cc pink-straw colored fluid. His left-sided chest tube remains on -20 low wall suction overnight and continues not to show any detectable air leak or drainage. CXR this am shows pigtail in place.? Physical Exam Vital Signs: Vital Signs: Last Vital Signs Temp 98.3 F 12/12/22 15:04 Pulse 76 12/12/22 15:04 Resp 17 12/12/22 15:04 BP 136/73 12/12/22 15:04 Pulse Ox 94 12/12/22 15:04 O2 Del Method 12/12/22 15:04 O2 Flow Rate 2 12/12/22 11:31 FiO2 80 12/05/22 13:31 BMI result Body Mass Index 32.3 Tmax 100 @ midnight Const: Other: pt is lying in bed, cooperative.? He denies SOB, says that his breathing today is better. No pain around chest tube site and has said that his cough has improved.? He is only coughing up boo secretions. He did have a blood transfusion for a hct of 21/22 HEENT: Other: NC/AT sclera nonicteric, no swollen eyelids. No sinus tenderness Neck: Other: No JVD Chest: Other: Right pigtail chest tube in place with 240 cc pinkish straw colored fluid, no air leak and chest tube to -20 cc Hg. Resp: Other: Left base diminished with some aeration in [place] and right clear. No rhonchi or wheezing. Cardio: Other: RRR GI: Other: abd soft, nontender and non distended. : Other: voiding freely Skin: Other: no rashes Neuro: Other: grossly intact Extrem: Other: no calf tenderness Psych: Other: childlike Procedures Date of Service Date of Service: 12/12/22 Progress Note: A&P Assessment and plan (1) Cavitary pneumonia: Status: Acute Assessment and Plan: Mr. Wilkins is a 42 year old male with cavitary pneumonia- streptococcal, MRSA and a left sided hydropneumothoax. TB being ruled out - remains on precautions. S/P ?28Fr chest tube insertion (Dr. Mcdowell) on 11/30/22 S/P ?Chemical decortication (Dr. Mcdowell) on 11/30/22, 12/01/22, and 2S/P? S/P ?8.5 [place] pigtail catheter placed by Interventional Radiology on 12/06 S/P ?Chemical decortication on 0 and 12/08 by thoracic surgery ?No Chemical decorotication on 12/09 - due to elevated INR of 1.9 S/P? ?Chemical decortication (tPA/only) on 12/11 by Thoracic Surgery. No dornase due to coughing up pink frothy sputum Left hydropneumothorax and cavitary pneumonia * Thoracic Surgery will continue to monitor/manage chest tube.? Continue chest tube to -20 mm Hg suction and follow output. 240 cc following third dose of tPA * Bronchial washing :? Gram stain negative.? Cultures Yeast < 10 CFU.? * Studies from 11/30:? AFB and fungal cultures no growth to date (pending) * Continue chest PT, mucolytcs, and aggressive pulmonary toileting with IS/flutter valve should be done.? pt continues to pull nearly 2500 on IS. * ID following - their recommendations:? Continue antibiotics: Zosyn for now and IV ertapenem upon discharge unless changes for 3-6 weeks (now day 10 antibiotics). Recheck CBC for white count and platelet count. * Serum albumin 1.6.? Severe hypoalbuminemia.? Nutrition consult recommends Ensure Max BID. Case discussed with Dr. Wilkinson. Time Spent With Patient Time: Total time managing care of this patient today ____ minutes. Quality Stroke Does the patient have a stroke diagnosis?: No VTE Prior VTE?: No VTE Risk Level:: Medical - moderate - high VTE Device Contraindication: Treatment Not Indicated VTE Drug Contraindication: N/A - Med Ordered
[2022-12-12] MEDS: bisacodyL 5 MG TABLET.DR PO (21:41)
[2022-12-12] MEDS: Divalproex Sodium 500 MG TABLET.DR 2000 MG PO (21:42)
[2022-12-12] MEDS: Acetaminophen 325 MG TABLET 650 MG PO (22:29)
[2022-12-13] VITALS (7 sets, daily range): BP systolic 119–138; BP diastolic 66–75; PULSE 65–83; RESP 14–23; TEMP 36.2–37.4; O2SAT 96–99
[2022-12-13] MEDS: Piperacillin Sodium/Tazobactam 4.5 GM in 0.9 % Sodium Chloride 100 ML IV ×4 (04:55→22:10)
--- NOTE | 2022-12-13 08:11 | HO.PM.IMPN ---
Subjective Subjective Date of Service: 12/13/22 Interval History: f/u on hydropneumothorax, pneumonia s/p chest tube and undergoing chemical decordication, and believed to be suffering from mucus plug Review of Systems oxygen demand improving Has dry cough, denies any shortness of breath or chest pain. Physical Exam Vital Signs: Vital Signs: Last Vital Signs Temp 97.8 F 12/13/22 04:00 Pulse 75 12/13/22 04:00 Resp 20 12/13/22 04:00 BP 131/66 12/13/22 04:00 Pulse Ox 98 12/13/22 04:00 O2 Del Method 12/13/22 04:00 O2 Flow Rate 2 12/13/22 00:00 FiO2 80 12/05/22 13:31 BMI result Body Mass Index 32.3 General: AO X 3, no acute distress Resp:? diminished on right side, chest tube -not drainge CVS: S1,S2,RRR GI: +BS, NT, no distention Skin: No rash Neuro:? motor grossly intact Psych: appropriate affect Objective Data Active Medications Acetaminophen (Acetaminophen 325 Mg Tablet) 650 mg PO Q6H PRN PRN Reason: Pain, Mild (Pain Scale 1-3) Last Admin: 12/12/22 22:29 Dose: 650 mg Documented By: ZHANE Bisacodyl (Bisacodyl 5 Mg Tablet.) 5 mg PO BEDTIME [facility] Last Admin: 12/12/22 21:41 Dose: 5 mg Documented By: ZHANE Buprenorphine/Naloxone (Buprenorphine/Naloxone 2/0.5mg Film) 1 film SUBLINGUAL DAILY [facility] Last Admin: 12/12/22 10:32 Dose: Not Given Documented By: JADEN Non-Admin Reason: Patient Refused Divalproex Sodium (Divalproex Sodium 500 Mg Tablet.) 2,000 mg PO BEDTIME [facility] Last Admin: 12/12/22 21:42 Dose: 2,000 mg Documented By: ZHANE Docusate Sodium (Docusate Sodium 100 Mg Capsule) 100 mg PO DAILY PRN PRN Reason: Constipation Last Admin: 12/09/22 21:31 Dose: 100 mg Documented By: BRYSON Enoxaparin Sodium (Enoxaparin Sodium 40 Mg/0.4 Ml Syringe) 40 mg SUBCUT Q24H [facility] Last Admin: 12/04/22 19:49 Dose: Not Given Documented By: JOHN Non-Admin Reason: Patient Refused Ferrous Sulfate (Ferrous Sulfate 300 Mg/5 Ml Liquid) 300 mg PO BIDWM [facility] Last Admin: 12/12/22 15:06 Dose: 300 mg Documented By: MARIE Piperacillin Sod/Tazobactam (Sod 4.5 gm/ Sodium Chloride) 100 mls @ 200 mls/hr IV Q6H [facility] Last Infusion: 12/13/22 05:40 Dose: 0 mls/hr Documented By: CARLYN Sodium Chloride (0.9 % Sodium Chloride Flush 3 Ml Syringe) 3 ml IVFLUSH QSHIFT [facility] Last Admin: 12/12/22 21:42 Dose: 3 ml Documented By: ZHANE Labs 12/12/22 08:57 12/08/22 07:40 Labs: Laboratory Results - last 24 hr 12/12/22 08:57 Blood Type A Negative Antibody Screen NEGATIVE Crossmatch See Detail Microbiology Microbiology Results: Microbiology 11/30/22 18:30 Fungal Identification - Preliminary Pleural Fluid No growth after 1 week. Assessment and Plan (1) Overweight: Status: Acute (2) Pleural effusion: Status: Acute (3) Sepsis with acute hypoxic respiratory failure: Status: Acute (4) Pneumonia: Status: Acute (5) Elevated INR: Status: Acute (6) Hypoalbuminemia: Status: Acute (7) Over weight: Status: Acute (8) Acute blood loss anemia: Status: Acute Plan Hospital day:17 42yo M with OUD on Suboxone (abstinent of heroin x 2yr), recently incarcerated x8mo, presenting after 2 weeks of worsening cough and dyspnea-Admitted for severe sepsis with hypoxia and SIMBA due to PNA, found to have multifocal cavitary PNA-likely streptococcal, complicated by hydropneumothorax, now status post placement of chest tube? in ICU, underwent chemical decortication. CT finding unchanged and concern of mucus plug so there is plan for bronch on 12/05. severe sepsis due to multifocal cavitary [id number] pneumonia, likely streptococcal. intially vancomycin 11/27-, pip-delano 11/27-, and azithromycin 11/26 - airborne precautions, T-spot, ID + Pulm following, AFB smear/Cx x3 - Legionella + pneumococcal Ags pending - MRSA swab POSITIVE - HIV Ab/Ag negative - TTE no vegetation AFB and Pleural ADA is pending. ?T spot is negative. cytology negative for malignant cells,s/p bronchoscopy(12/05/22) -culture noted-d/w Id -no change in antibiotics at present. wbc improved , no fevers Cxr today unchanged -still has loculated effusion ,pitail catheter inplace No change in cavitary left upper lobe pneumonia compared to 12/09/2022. plan: sepsis seems to be resolved. ? Hydropneumothorax status post left-sided chest tube undergoing chemical decortication. Continue to titrate off supplemental oxygen as tolerated.? Continue chest PT, mucolytcs, and aggressive pulmonary toileting with IS/acapella should be done.?chest tube mangement as per surgery , chest tube not drain ? Infectious Disease follow up appreciated, Culture and pathology unremarkable soafar -continue Zosyn day12. thoracic surgery-s/p chest tube removal left side- still has loculated effusion , need Ct surgery follow up ?acute hypoxemic respiratory failure possibly sec to above. continue as above, taper oxygen. SIMBA- suspect prerenal vs septic ATN.? resolved after fluid resuscitation. ?OUD- continue Suboxone. ?mood disorder- continue valproate, olanzapine, prazosin, mirtazapine. ?Underlying bipolar disorder. ? Opioid dependence.? Suboxone overweight : encouraged to lose weight. Acute blood loss anemia on chronic anemia normocytic: Multifactorial:? On going fibrinlysis , chest tube also draining some pinkish liquids) iron studies( low iron ,tibc ,boderline low iron sats ,ferritin , b12 and folate normal-seems these related Acute blood loss anemia. added iron.type and cross done 12/08/22 denies any melena s/p 1prbc- h/h: 8.2/25.3 INR on high side likely? from acute illness,possible nutrional component hemtaolgic workup reviewed -likely inr elevated due to above . lft's normal .received vit kx2 days.inr improved. inr improved overweight : advised to loose weight. 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 Diet:? Regular Need for inpatient:pneumonia /persistent loculated effusion and has chest tube and acute ill and may need additiaonal surigical intervention-need iv antibiotics ,new chest tube placement for pleural effusion- need throacic intervention Time Spent With Patient Time: Total time managing care of this patient today ____ minutes. Quality Stroke Does the patient have a stroke diagnosis?: No VTE Prior VTE?: No VTE Risk Level:: Medical - moderate - high VTE Device Contraindication: Treatment Not Indicated VTE Drug Contraindication: N/A - Med Ordered
[2022-12-13 08:41] LABS: Hematocrit 25.3 % (42.0-52.0); Hemoglobin 8.2 g/dl (14.0-18.0); Mean Corpuscular HGB Conc 32.4 g/dl (31.0-36.0); Mean Corpuscular Hemoglobin 27.9 pg (27.0-33.0); Mean Corpuscular Volume 86.1 fL (80.0-98.0); Platelet Count 428 X10*3/uL (160-400); Red Blood Count 2.94 X10*6/uL (4.60-5.80); Red Cell Distribution Width 16.4 % (11.0-16.0)
[2022-12-13 09:14] LABS: Anion Gap 11 (12-20); Blood Urea Nitrogen 9 mg/dL (9-16); Calcium 7.9 mg/dL (8.4-10.2); Carbon Dioxide 24 mmol/L (22-29); Chloride 105 mmol/L (96-108); Estimated Glomerular Filt Rate > 60; Glucose Random 97 mg/dL (60-115); Potassium 4.1 mmol/L (3.3-5.1); Sodium 136 mmol/L (135-145)
[2022-12-13] MEDS: Ferrous Sulfate 300 MG/5 ML LIQUID PO ×2 (09:38→17:35)
[2022-12-13] MEDS: 0.9 % Sodium Chloride Flush 3 ML SYRINGE IVFLUSH ×2 (09:38→15:02)
[2022-12-13] MEDS: bisacodyL 5 MG TABLET.DR PO (21:05)
[2022-12-13] MEDS: Divalproex Sodium 500 MG TABLET.DR 2000 MG PO (21:05)
[2022-12-13] MEDS: Acetaminophen 325 MG TABLET 650 MG PO (22:09)
[2022-12-14] MEDS: 0.9 % Sodium Chloride Flush 3 ML SYRINGE IVFLUSH ×3 (03:30→16:51)
[2022-12-14] MEDS: Piperacillin Sodium/Tazobactam 4.5 GM in 0.9 % Sodium Chloride 100 ML IV ×4 (03:31→20:51)
[2022-12-14 04:00] VITALS: BP 123/69; PULSE 88; RESP 14; TEMP 36.6; O2SAT 97
[2022-12-14 07:55] LABS: Hematocrit 26.5 % (42.0-52.0); Hemoglobin 8.7 g/dl (14.0-18.0)
[2022-12-14] MEDS: Ferrous Sulfate 300 MG/5 ML LIQUID PO ×2 (08:42→16:51)
[2022-12-14 11:56] VITALS: BP 127/69; PULSE 72; RESP 17; TEMP 36.7; O2SAT 99
--- NOTE | 2022-12-14 12:44 | P.PNTS_ITS ---
Subjective Subjective Date of Service: 12/14/22 Interval history: Patient was seen and examined this morning. His left-sided pigtail catheter put out minimal serosanguineous fluid overnight. He denies any concerning symptoms such as fevers, chills or hemoptysis. A chest CT was performed this morning which shows continued and persistent apical loculated pleural fluid which still remains after 6 days of bedside fibrinolysis. Physical Exam Vital Signs: Vital Signs: Last Vital Signs Temp 98.0 F 12/14/22 11:56 Pulse 72 12/14/22 11:56 Resp 17 12/14/22 11:56 BP 127/69 12/14/22 11:56 Pulse Ox 99 12/14/22 11:56 O2 Del Method 12/14/22 11:56 O2 Flow Rate 2.5 12/14/22 04:00 FiO2 80 12/05/22 13:31 BMI result Body Mass Index 32.3 HEENT: Other: NC/AT sclera nonicteric, no swollen eyelids. No sinus tenderness Eyes: Other: sclera noniceric Neck: Other: No JVD Chest: Other: Right pigtail chest tube in place with 240 cc pinkish straw colored fluid, no air leak and chest tube to -20 cc Hg. Resp: Other: Left base diminished with some aeration in SE[place]IAN and right clear. No rhonchi or wheezing. Cardio: Other: RRR GI: Other: abd soft, nontender and non distended. : Other: voiding freely Skin: Other: no rashes Neuro: Other: grossly intact Extrem: Other: no calf tenderness Psych: Other: childlike Procedures Date of Service Date of Service: 12/14/22 Progress Note: A&P Assessment and plan (1) Cavitary pneumonia: Status: Acute Assessment and Plan: Mr. Wilkins is a 42 year old male with cavitary pneumonia- streptococcal, MRSA and a left sided hydropneumothoax. TB being ruled out - remains on precautions. S/P ?28Fr chest tube insertion (Dr. Mcdowell) on 11/30/22 S/P ?Chemical decortication (Dr. Mcdowell) on 11/30/22, 12/01/22, and 2S/P? S/P ?8.5 [place] pigtail catheter placed by Interventional Radiology on 02/07 S/P ?Chemical decortication on 0 8 and 12/08 by thoracic surgery ? Left hydropneumothorax and cavitary pneumonia * Thoracic Surgery will continue to monitor/manage chest tube.? Continue chest tube to -20 mm Hg suction and follow output. * Bronchial washing :? Gram stain negative.? Cultures Yeast < 10 CFU.? * Studies from 11/30:? AFB and fungal cultures no growth to date (pending) * Continue chest PT, mucolytcs, and aggressive pulmonary toileting with IS/flutter valve should be done.? pt continues to pull nearly 2500 on IS. * ID following - their recommendations:? Continue antibiotics: Zosyn for now and IV ertapenem upon discharge unless changes for 3-6 weeks (now day 10 antibiotics). Recheck CBC for white count and platelet count. * Chest CT per my read today shows persistent apical loculated pleural fluid collection. * Scheduled for OR tomorrow VATS left-sided total decortication. * N.p.o. tonight at midnight. Case discussed with Dr. Wilkinson. Time Spent With Patient Time: Total time managing care of this patient today ____ minutes. Quality Stroke Does the patient have a stroke diagnosis?: No VTE Prior VTE?: No VTE Risk Level:: Medical - moderate - high VTE Device Contraindication: Treatment Not Indicated VTE Drug Contraindication: N/A - Med Ordered
--- NOTE | 2022-12-14 13:13 | HO.PM.IMPN ---
Subjective Subjective Date of Service: 12/14/22 Interval History: f/u on hydropneumothorax, pneumonia s/p chest tube and undergoing chemical decordication, loculated pleural effusion Review of Systems ?His left-sided pigtail catheter put out minimal serosanguineous fluid overnight.? denies any new symptoms such as fevers, chills or hemoptysis.?? Physical Exam Vital Signs: Vital Signs: Last Vital Signs Temp 98.0 F 12/14/22 11:56 Pulse 72 12/14/22 11:56 Resp 17 12/14/22 11:56 BP 127/69 12/14/22 11:56 Pulse Ox 99 12/14/22 11:56 O2 Del Method 12/14/22 11:56 O2 Flow Rate 2.5 12/14/22 04:00 FiO2 80 12/05/22 13:31 BMI result Body Mass Index 32.3 General: AO X 3, no acute distress Resp:? diminished on right side, chest tube -mimium drainge as above. CVS: S1,S2,RRR GI: +BS, NT, no distention Skin: No rash Neuro:? motor grossly intact Psych: appropriate affect Objective Data Active Medications Acetaminophen (Acetaminophen 325 Mg Tablet) 650 mg PO Q6H PRN PRN Reason: Pain, Mild (Pain Scale 1-3) Last Admin: 12/13/22 22:09 Dose: 650 mg Documented By: PIPPA Bisacodyl (Bisacodyl 5 Mg Tablet.) 5 mg PO BEDTIME [facility] Last Admin: 12/13/22 21:05 Dose: 5 mg Documented By: PIPPA Buprenorphine/Naloxone (Buprenorphine/Naloxone 2/0.5mg Film) 1 film SUBLINGUAL DAILY [facility] Last Admin: 12/14/22 09:01 Dose: Not Given Documented By: ERVIN Non-Admin Reason: Patient Refused Divalproex Sodium (Divalproex Sodium 500 Mg Tablet.) 2,000 mg PO BEDTIME [facility] Last Admin: 12/13/22 21:05 Dose: 2,000 mg Documented By: PIPPA Docusate Sodium (Docusate Sodium 100 Mg Capsule) 100 mg PO DAILY PRN PRN Reason: Constipation Last Admin: 12/09/22 21:31 Dose: 100 mg Documented By: HO.CASTILM Enoxaparin Sodium (Enoxaparin Sodium 40 Mg/0.4 Ml Syringe) 40 mg SUBCUT Q24H [facility] [place] Last Admin: 12/04/22 19:49 Dose: Not Given Documented By: JOHN Non-Admin Reason: Patient Refused Ferrous Sulfate (Ferrous Sulfate 300 Mg/5 Ml Liquid) 300 mg PO BIDWM [facility] [place] Last Admin: 12/14/22 08:42 Dose: 300 mg Documented By: ERVIN Piperacillin Sod/Tazobactam (Sod 4.5 gm/ Sodium Chloride) 100 mls @ 200 mls/hr IV Q6H [facility] [place] Last Infusion: 12/14/22 09:15 Dose: 0 mls/hr Documented By: ERVIN Sodium Chloride (0.9 % Sodium Chloride Flush 3 Ml Syringe) 3 ml IVFLUSH QSHIFT [facility] [place] Last Admin: 12/14/22 09:00 Dose: 3 ml Documented By: ERVIN Labs 12/14/22 07:25 12/13/22 08:34 Assessment and Plan (1) Overweight: Status: Acute (2) Pleural effusion: Status: Acute (3) Sepsis with acute hypoxic respiratory failure: Status: Acute (4) Pneumonia: Status: Acute (5) Elevated INR: Status: Acute (6) Hypoalbuminemia: Status: Acute (7) Over weight: Status: Acute (8) Acute blood loss anemia: Status: Acute Plan Hospital day:[age]yo M with OUD on Suboxone (abstinent of heroin x 2yr), recently incarcerated x8mo, presenting after 2 weeks of worsening cough and dyspnea-Admitted for severe sepsis with hypoxia and SIMBA due to PNA, found to have multifocal cavitary PNA-likely streptococcal, complicated by hydropneumothorax, now status post placement of chest tube? in ICU, underwent chemical decortication. CT finding unchanged and concern of mucus plug so there is plan for bronch on 12/05. severe sepsis due to multifocal cavitary AEZ-Pwds-[id number] pneumonia, likely streptococcal. Legionella + pneumococcal Ags neg MRSA swab POSITIVE HIV Ab/Ag negative TTE no vegetation Studies from 11/30:? AFB and fungal cultures no growth to date (pending) Bronchial washing :? Gram stain negative.? Cultures Yeast < 10 CFU.? ?T spot is negative. cytology negative for malignant cells,s/p bronchoscopy(12/05/22) -culture noted-d/w Id -no change in antibiotics at present. wbc improved , no fevers Cxr 12/12/22 unchanged -still has loculated effusion ,pitail catheter inplace No change in cavitary left upper lobe pneumonia compared to 12/09/2022. important procedures and dates during this admission: S/P ?28Fr chest tube insertion (Dr. Mcdowell) on 11/30/22 S/P ?Chemical decortication (Dr. Mcdowell) on 11/30/22, 12/01/22, and 2S/P? S/P ?8.5 Norwegian pigtail catheter placed by Interventional Radiology on 12/06 S/P ?Chemical decortication on and 12/08 by thoracic surgery ? plan: airborne precautions,intially vancomycin 11/27-, pip-delano 11/27-, and azithromycin 11/26 sepsis seems to be resolved. ? Hydropneumothorax status post left-sided chest tube undergoing chemical decortication. Continue to titrate off supplemental oxygen as tolerated.? Thoracic Surgery will continue to monitor/manage chest tube.? Continue chest tube to -20 mm Hg suction and follow output. Continue chest PT, mucolytcs, and aggressive pulmonary toileting with IS/acapella should be done.?chest tube mangement as per surgery. ? Infectious Disease follow up appreciated, Culture and pathology unremarkable soafar -continue Zosyn day13 and then need ertapenem afterwards( possible 3-6 weeks) d/w thoracic surgery- ct chest added , may need decortication surgery depending upon ct chest results , will keep npo past midnight. thoracic surgery-s/p chest tube removal left side- still has loculated effusion , need Ct surgery follow up patient will need Id follow up also ?acute hypoxemic respiratory failure possibly sec to above. continue as above, taper oxygen. SIMBA- suspect prerenal vs septic ATN.? resolved after fluid resuscitation. ?OUD- continue Suboxone. ?mood disorder- continue valproate, olanzapine, prazosin, mirtazapine. ?Underlying bipolar disorder. ? Opioid dependence.? Suboxone overweight : encouraged to lose weight. Acute blood loss anemia on chronic anemia normocytic: Multifactorial:? On going fibrinlysis , chest tube also draining some pinkish liquids) iron studies( low iron ,tibc ,boderline low iron sats ,ferritin , b12 and folate normal-seems these related Acute blood loss anemia. added iron.type and cross done 12/08/22 denies any melena s/p 1prbc- h/h: 8.7/26.5 INR on high side likely? from acute illness,possible nutrional component hemtaolgic workup reviewed -likely inr elevated due to above . lft's normal .received vit kx2 days.inr improved. inr improved overweight : advised to loose weight. Hypoalbuminemia : possible sec to low po intake added supplements,diagnostic tech followin Prophylaxis:?hold Lovenox due to anemia, scd. Diet:? Regular Need for inpatient:pneumonia /persistent loculated effusion and has chest tube and acute ill and may need additiaonal surigical intervention-need iv antibiotics ,new chest tube placement for pleural effusion- need throacic intervention-possible decortication in a.m. depending on CT chest results. Time Spent With Patient Time: Total time managing care of this patient today ____ minutes. Quality Stroke Does the patient have a stroke diagnosis?: No VTE Prior VTE?: No VTE Risk Level:: Medical - moderate - high VTE Device Contraindication: Treatment Not Indicated VTE Drug Contraindication: N/A - Med Ordered
--- NOTE | 2022-12-14 14:14 | MHC.CM.PN ---
Per MD rounds no discharge today. Patient is planned for OR tomorrow. DP Home with family support. Patient does not have a PCP. He will not qualify for Home services until he is seen by his PCP.
[2022-12-14 16:00] VITALS: BP 122/83; PULSE 68; RESP 15; TEMP 36.6; O2SAT 96
--- NOTE | 2022-12-14 16:07 | PM.IDPN ---
Subjective Subjective Date of Service: 12/14/22 Critical Care Time (minutes): 15 Comment: He has no complaints He is seeing thoracic about adjusting chest tube. Objective Data Labs 12/14/22 07:25 12/13/22 08:34 Labs: Laboratory Results - last 24 hr 12/14/22 07:25 Hgb 8.7 L Hct 26.5 L Microbiology Microbiology Results: Microbiology 11/30/22 18:30 Pleural Fluid Fungal Identification - Preliminary No growth after 1 week. 11/30/22 06:30 Sputum - Expectorated Direct Acid Fast Bacilli Smear - Final 11/30/22 18:30 Pleural Fluid Direct Acid Fast Bacilli Smear - Final 12/05/22 12:51 Washing - Lt Lung (Pleural) Gram Stain - Final 12/05/22 12:51 Washing - Lt Lung (Pleural) Routine Culture - Final Yeast 11/30/22 18:30 Pleural Fluid Gram Stain - Final 11/30/22 18:30 Pleural Fluid Routine Culture - Final No growth after 2 days 11/30/22 18:30 Pleural Fluid Anaerobic Culture - Final NO GROWTH AFTER 5 DAYS 11/28/22 09:33 Sputum - Induced Direct Acid Fast Bacilli Smear - Final 11/26/22 16:13 Blood - Venous Blood Culture - Final No growth after 5 days. 11/26/22 16:13 Blood - Venous Blood Culture - Final No growth after 5 days. 11/28/22 09:33 Sputum - Expectorated Gram Stain - Final 11/28/22 09:33 Sputum - Expectorated Sputum Culture - Final Streptococcus pyogenes (Grp A) Yeast Physical Exam Vital Signs: Vital Signs: Last Vital Signs Temp 98.0 F 12/14/22 11:56 Pulse 72 12/14/22 11:56 Resp 17 12/14/22 11:56 BP 127/69 12/14/22 11:56 Pulse Ox 99 12/14/22 11:56 O2 Del Method 12/14/22 11:56 O2 Flow Rate 2.5 12/14/22 04:00 FiO2 80 12/05/22 13:31 BMI result Body Mass Index 32.3 Const: General: cooperative Resp: Effort & Inspection: normal respiratory effort Cardio: Rate: regular rate Rhythm: regular rhythm GI: Palpation (GI): Soft to palpation and nontender Assessment and Plan Assessment and plan (1) Hydropneumothorax: Problem details: There are no signs of tuberculosis or fungal disease He is still needing chest tube apparently. He wants visitors. Status: Acute (2) Cavitary pneumonia: Problem details: He is day 14 of piperacillin/tazobactam Status: Acute Plan Would continue iv piperacillin/tazobactam ?3-6 week total (await CT scan) Thoracic to see Time Spent With Patient Time: Total time managing care of this patient today ____ minutes.
--- NOTE | 2022-12-14 16:14 | PM.IDPN ---
Subjective Subjective Comment: can stop respiratory isolation Objective Data Labs 12/14/22 07:25 12/13/22 08:34 Labs: Laboratory Results - last 24 hr 12/14/22 07:25 Hgb 8.7 L Hct 26.5 L Microbiology Microbiology Results: Microbiology 11/30/22 18:30 Pleural Fluid Fungal Identification - Preliminary No growth after 1 week. 11/30/22 06:30 Sputum - Expectorated Direct Acid Fast Bacilli Smear - Final 11/30/22 18:30 Pleural Fluid Direct Acid Fast Bacilli Smear - Final 12/05/22 12:51 Washing - Lt Lung (Pleural) Gram Stain - Final 12/05/22 12:51 Washing - Lt Lung (Pleural) Routine Culture - Final Yeast 11/30/22 18:30 Pleural Fluid Gram Stain - Final 11/30/22 18:30 Pleural Fluid Routine Culture - Final No growth after 2 days 11/30/22 18:30 Pleural Fluid Anaerobic Culture - Final NO GROWTH AFTER 5 DAYS 11/28/22 09:33 Sputum - Induced Direct Acid Fast Bacilli Smear - Final 11/26/22 16:13 Blood - Venous Blood Culture - Final No growth after 5 days. 11/26/22 16:13 Blood - Venous Blood Culture - Final No growth after 5 days. 11/28/22 09:33 Sputum - Expectorated Gram Stain - Final 11/28/22 09:33 Sputum - Expectorated Sputum Culture - Final Streptococcus pyogenes (Grp A) Yeast Physical Exam Vital Signs: Vital Signs: Last Vital Signs Temp 98.0 F 12/14/22 11:56 Pulse 72 12/14/22 11:56 Resp 17 12/14/22 11:56 BP 127/69 12/14/22 11:56 Pulse Ox 99 12/14/22 11:56 O2 Del Method 12/14/22 11:56 O2 Flow Rate 2.5 12/14/22 04:00 FiO2 80 12/05/22 13:31 BMI result Body Mass Index 32.3 Assessment and Plan Time Spent With Patient Time: Total time managing care of this patient today ____ minutes.
--- NOTE | 2022-12-14 16:17 | PM.EVENT ---
Event Note Date of Service: 12/14/22 Event Note: can stop respiratory isolation Time Spent With Patient Time: Total time managing care of this patient today ____ minutes.
[2022-12-14 20:00] VITALS: BP 136/78; PULSE 75; RESP 17; TEMP 36.8; O2SAT 96
[2022-12-14] MEDS: Acetaminophen 325 MG TABLET 650 MG PO (20:50)
[2022-12-14] MEDS: bisacodyL 5 MG TABLET.DR PO (20:50)
[2022-12-14] MEDS: Divalproex Sodium 500 MG TABLET.DR 2000 MG PO (20:50)
[2022-12-14] MEDS: Buprenorphine/Naloxone 2/0.5mg FILM 1 FILM SUBLINGUAL (21:29)
[2022-12-15] VITALS (22 sets, daily range): BP systolic 119–150; BP diastolic 62–93; PULSE 85–130; RESP 11–20; TEMP 36.3–36.8; O2SAT 92–100
[2022-12-15] MEDS: Dextrose 5 % and 0.9 % NaCl 1,000 ML 80 ML IVCONT (02:07)
[2022-12-15] MEDS: 0.9 % Sodium Chloride Flush 3 ML SYRINGE IVFLUSH (02:07)
[2022-12-15] MEDS: Piperacillin Sodium/Tazobactam 4.5 GM in 0.9 % Sodium Chloride 100 ML IV ×3 (05:51→21:38)
[2022-12-15 07:16] LABS: Hematocrit 24.2 % (42.0-52.0); Hemoglobin 7.7 g/dl (14.0-18.0); Mean Corpuscular HGB Conc 31.8 g/dl (31.0-36.0); Mean Corpuscular Hemoglobin 28.5 pg (27.0-33.0); Mean Corpuscular Volume 89.6 fL (80.0-98.0); Mean Platelet Volume 9.2 fL (9.4-12.4); Platelet Count 361 X10*3/uL (160-400); Red Cell Distribution Width 16.9 % (11.0-16.0); White Blood Count 7.2 X10*3/uL (4.8-10.8)
[2022-12-15 07:30] LABS: Anion Gap 9 (12-20); Blood Urea Nitrogen 9 mg/dL (9-16); Calcium 8.2 mg/dL (8.4-10.2); Carbon Dioxide 26 mmol/L (22-29); Chloride 107 mmol/L (96-108); Creatinine Clr Calc Pharmacy 202.7; Estimated Glomerular Filt Rate > 60; Glucose Random 84 mg/dL (60-115); Potassium 4.3 mmol/L (3.3-5.1); Sodium 138 mmol/L (135-145)
[2022-12-15 07:31] LABS: INTERNATIONAL NORM RATIO 1.3 (0.9-1.1); Prothrombin Time 15.1 SEC (10.0-13.1)
[2022-12-15] MEDS: Ferrous Sulfate 300 MG/5 ML LIQUID PO (09:04)
[2022-12-15] MEDS: Buprenorphine/Naloxone 2/0.5mg FILM 1 FILM SUBLINGUAL ×2 (09:05→22:17)
[2022-12-15] MEDS: Phytonadione (Vit K1) 10 MG in 0.9 % Sodium Chloride 50 ML 51 MG IV (09:19)
--- NOTE | 2022-12-15 12:31 | PC.NURSE ---
dr hernandez review pt labs no need for transfusion at this time
--- NOTE | 2022-12-15 13:31 | HO.ANESPROP2 ---
HPI - Anesthesia Eval Consult details Narrative: for thoracoscopy, decortication PMFSH Active Problems Active Problems: All Active Problems (Updated 12/14/22 @ 16:11 by Karla Christie MD) Acute blood loss anemia (Acute) Over weight (Acute) Hypoalbuminemia (Acute) Elevated INR (Acute) Overweight (Acute) Pleural effusion (Acute) Thrombocytopenia (Acute) Bipolar 1 disorder (Acute) Hydropneumothorax (Acute) Cavitary pneumonia (Acute) Sepsis with acute hypoxic respiratory failure (Acute) Severe sepsis (Acute) Chest pain (Acute) Sepsis (Acute) Pneumonia (Acute) Hypoxia (Acute) Past Medical History Medical History (Updated 12/14/22 @ 16:11 by Karal Christie MD) Anxiety Bipolar 1 disorder Cavitary pneumonia PTSD (post-traumatic stress disorder) Substance use disorder Functional capacity: uses cane/walker Family History Family history of problems with anesthesia: No Surgical History History of Problems with Anesthesia: No Social History Social History Household Members: Spouse and None Housing: House Unable to assess alcohol history related to: Unknown Alcohol intake: never Patient Tobacco Use Status: Former Tobacco user Smoked in Last 30 Days: Yes Patient Interested in Nicotine Replacement: No Use of substances other than those prescribed or required for medical reasons: Yes Substance Use Type: Other Currently Displaying Signs/Symptoms of Drug Intoxication Withdrawal: No Any prior treatment program specific to substance use: No Have you been hit, kicked, punched, or otherwise hurt by someone within the past year? If so, by whom?: No Do you feel safe in your current relationship?: Yes Is there a partner from a previous relationship who is making you feel unsafe now?: No Are you made to feel afraid or neglected: No Are you DNR?: No Advance Directives: No Nutrition Risks: No Nutritional Risk service: No Current occupational status: disabled Meds Allergies Allergy/AdvReac Type Severity Reaction Status Date / Time quetiapine [From Seroquel] Allergy Chest Pain Verified 11/26/22 17:13 Active Medications: Current Medications Acetaminophen (Acetaminophen 325 Mg Tablet) 650 mg PO Q6H PRN PRN Reason: Pain, Mild (Pain Scale 1-3) Last Admin: 12/14/22 20:50 Dose: 650 mg Bisacodyl (Bisacodyl 5 Mg Tablet.) 5 mg PO BEDTIME [facility] Last Admin: 12/14/22 20:50 Dose: 5 mg Buprenorphine/Naloxone (Buprenorphine/Naloxone 2/0.5mg Film) 1 film SUBLINGUAL DAILY [facility] Last Admin: 12/15/22 09:05 Dose: 1 film Divalproex Sodium (Divalproex Sodium 500 Mg Tablet.) 2,000 mg PO BEDTIME [facility] Last Admin: 12/14/22 20:50 Dose: 2,000 mg Docusate Sodium (Docusate Sodium 100 Mg Capsule) 100 mg PO DAILY PRN PRN Reason: Constipation Last Admin: 12/09/22 21:31 Dose: 100 mg Enoxaparin Sodium (Enoxaparin Sodium 40 Mg/0.4 Ml Syringe) 40 mg SUBCUT Q24H [facility] Last Admin: 12/04/22 19:49 Dose: Not Given Ferrous Sulfate (Ferrous Sulfate 300 Mg/5 Ml Liquid) 300 mg PO BIDWM [facility] Last Admin: 12/15/22 09:04 Dose: 300 mg Piperacillin Sod/Tazobactam (Sod 4.5 gm/ Sodium Chloride) 100 mls @ 200 mls/hr IV Q6H [facility] Last Infusion: 12/15/22 11:52 Dose: 200 mls/hr Dextrose/Sodium Chloride (D5ns) 1,000 mls @ 80 mls/hr IVCONT .[id number] [facility] Stop: 12/16/22 00:59 Last Infusion: 12/15/22 09:21 Dose: 0 mls/hr Sodium Chloride (0.9 % Sodium Chloride Flush 3 Ml Syringe) 3 ml IVFLUSH QSHIFT [facility] Last Admin: 12/15/22 09:05 Dose: Not Given Home Medications Medication Instructions Recorded Confirmed Last Taken Type bisacodyl 5 mg tablet,delayed 5 mg PO BEDTIME 11/26/22 11/26/22 11/25/22 History release buprenorphine 12 mg-naloxone 3 mg 0.5 film buccal TID@0600,1000,1400 11/26/22 11/26/22 11/26/22 History sublingual film (Suboxone) buprenorphine 12 mg-naloxone 3 mg 0.5 strip sublingual DAILY@1800 11/26/22 11/26/22 11/25/22 History sublingual film (Suboxone) buprenorphine 8 mg-naloxone 2 mg 1 film buccal BEDTIME 11/26/22 11/26/22 11/25/22 History sublingual film (Suboxone) cetirizine 10 mg tablet 10 mg PO BEDTIME PRN Allergy 11/26/22 11/26/22 11/25/22 History Symptoms divalproex 500 mg tablet,delayed 4 tab PO BEDTIME 11/26/22 11/26/22 11/25/22 History release docusate sodium 100 mg capsule 100 mg PO BEDTIME 11/26/22 11/26/22 11/25/22 History ibuprofen 800 mg tablet 800 mg PO Q6H PRN Back Pain 11/26/22 11/26/22 11/25/22 History mirtazapine 45 mg tablet 1 tab PO BEDTIME 11/26/22 11/26/22 11/25/22 History olanzapine 5 mg tablet 2 tab PO BEDTIME 11/26/22 11/26/22 11/25/22 History prazosin 2 mg capsule 2 mg PO BEDTIME 11/26/22 11/26/22 11/25/22 History Exam Exam Date and Time: December 15, 2022 1332 Height,Weight and Vital Signs: Height 6 ft 1 in Weight 111 kg Last Vital Signs Temp 98.0 F 12/15/22 11:42 Pulse 90 12/15/22 11:42 Resp 20 12/15/22 11:42 BP 125/69 12/15/22 11:42 Pulse Ox 97 12/15/22 11:42 O2 Del Method 12/15/22 11:42 O2 Flow Rate 2 12/15/22 11:42 FiO2 80 12/05/22 13:31 Pertinent Lab Results Pertinent Lab Results: Laboratory Tests 11/26/22 11/26/22 11/26/22 15:41 15:59 15:59 WBC 43.5 H* RBC 4.47 L Hgb 12.6 L Hct 39.6 L MCV 88.6 MCH 28.2 MCHC 31.8 RDW 15.2 Plt Count 181 MPV 10.7 Immature Gran % (Auto) Cancelled Neut % (Auto) Cancelled Lymph % (Auto) Cancelled [place] % (Auto) Cancelled Eos % (Auto) Cancelled Baso % (Auto) Cancelled Lymph # (Auto) Cancelled [place] # (Auto) Cancelled Eos # (Auto) Cancelled Baso # (Auto) Cancelled Abs Immat Gran (auto) Cancelled Absolute Neuts (auto) Cancelled Absolute Nucleated RBC 0.020 H Nucleated RBC % (auto) 0.0 Neutrophils % (Manual) 81 H Band Neutrophils % 8 H Lymphocytes % (Manual) 5 L Atypical Lymphs % (Man) Monocytes % (Manual) 6 Metamyelocytes % Myelocytes % Promyelocytes % Abs Neuts (Manual) 38.7 H Lymphocytes # (Manual) 2.2 Atyp Lymphs # (Manual) Monocytes # (Manual) 2.6 H Metamyelocytes # Myelocytes # Promyelocytes # Smudge Cells Toxic Vacuolation PRESENT Platelet Estimate NORMAL Plt Morphology Comment NORMAL RBC Morphology NORMAL Polychromasia Hypochromasia Macrocytosis Spherocytes Target Cells Smear Tech's Comments Smear Path Review PT INR APTT Fibrinogen D-Dimer High Sensitivty O2 Saturation ABG pH at Pt Temp ABG pCO2 at Pt Temp ABG pO2 at Pt Temp ABG HCO3 ABG Base Excess (Actual) VBG pH VBG pCO2 VBG pO2 VBG HCO3 VBG O2 Saturation VBG Base Excess Sodium 139 Potassium 3.5 Chloride 99 Carbon Dioxide 25 Anion Gap 19 BUN 29 H Creatinine 2.80 H Estim Creat Clear Calc 44.9 Estimated GFR 25 POC Glucose Random Glucose 145 H Lactic Acid Lactic Acid F/U @ 2Hr Lactic Acid F/U @ 4Hr Calcium 8.7 Phosphorus Magnesium 1.8 Iron TIBC % Saturation Unsat Iron Binding Ferritin Total Bilirubin 0.8 Direct Bilirubin AST 18 ALT 10 Alkaline Phosphatase 105 Lactate Dehydrogenase Troponin I High Sens B-Natriuretic Peptide Total Protein 6.8 Albumin 3.3 L Vitamin B12 Folate Procalcitonin Urine Color Urine Appearance Urine pH Ur Specific [place] Urine Protein Urine Glucose (UA) Urine Ketones Urine Blood Urine Nitrite Ur Leukocyte Esterase Urine RBC Urine WBC Ur Squamous Epith Cells Urine Bacteria Hyaline Casts Granular Casts Pleural WBC Pleural RBC Pleural Neutrophils Pleural Monocytes Pleural Total Protein Pleural Albumin Pleural LDH Pleural Glucose Pleural Amylase Nasal Screen MRSA (PCR) Nasal S. aureus Screen Nasal MRSA/S.aureus Interp Vancomycin Trough Random Vancomycin Urine Opiates Screen Urine Fentanyl Screen Ur Barbiturates Screen Ur Phencyclidine Scrn Ur Amphetamines Screen U Benzodiazepines Scrn Urine Cocaine Screen U Marijuana (THC) Screen HIV 1&2 Ab/P24 Ag 4thGn Influenza Type A (PCR) NEGATIVE Influenza Type B (PCR) NEGATIVE Ur L.pneumophila Ag RSV RNA Qual (PCR) NEGATIVE SARS-CoV-2 RNA (RT-PCR) NEGATIVE Ur Strep pneumoniae Ag TB Test (T-Spot) Com TB Test Nil Control TB Test Panel A TB Test Panel B TB Test Positive Cntrl Ref Lab Test Result Blood Type Antibody Screen Crossmatch 11/26/22 11/26/22 11/26/22 15:59 15:59 15:59 WBC RBC Hgb Hct MCV MCH MCHC RDW Plt Count MPV Immature Gran % (Auto) Neut % (Auto) Lymph % (Auto) [place] % (Auto) Eos % (Auto) Baso % (Auto) Lymph # (Auto) [place] # (Auto) Eos # (Auto) Baso # (Auto) Abs Immat Gran (auto) Absolute Neuts (auto) Absolute Nucleated RBC Nucleated RBC % (auto) Neutrophils % (Manual) Band Neutrophils % Lymphocytes % (Manual) Atypical Lymphs % (Man) Monocytes % (Manual) Metamyelocytes % Myelocytes % Promyelocytes % Abs Neuts (Manual) Lymphocytes # (Manual) Atyp Lymphs # (Manual) Monocytes # (Manual) Metamyelocytes # Myelocytes # Promyelocytes # Smudge Cells Toxic Vacuolation Platelet Estimate Plt Morphology Comment RBC Morphology Polychromasia Hypochromasia Macrocytosis Spherocytes Target Cells Smear Tech's Comments Smear Path Review PT INR APTT Fibrinogen D-Dimer High Sensitivty O2 Saturation ABG pH at Pt Temp ABG pCO2 at Pt Temp ABG pO2 at Pt Temp ABG HCO3 ABG Base Excess (Actual) VBG pH VBG pCO2 VBG pO2 VBG HCO3 VBG O2 Saturation VBG Base Excess Sodium Potassium Chloride Carbon Dioxide Anion Gap BUN Creatinine Estim Creat Clear Calc Estimated GFR POC Glucose Random Glucose Lactic Acid Lactic Acid F/U @ 2Hr Lactic Acid F/U @ 4Hr Calcium Phosphorus Magnesium Iron TIBC % Saturation Unsat Iron Binding Ferritin Total Bilirubin Direct Bilirubin AST ALT Alkaline Phosphatase Lactate Dehydrogenase Troponin I High Sens < 3.5 B-Natriuretic Peptide 60 Total Protein Albumin Vitamin B12 Folate Procalcitonin Urine Color Urine Appearance Urine pH Ur Specific [place] Urine Protein Urine Glucose (UA) Urine Ketones Urine Blood Urine Nitrite Ur Leukocyte Esterase Urine RBC Urine WBC Ur Squamous Epith Cells Urine Bacteria Hyaline Casts Granular Casts Pleural WBC Pleural RBC Pleural Neutrophils Pleural Monocytes Pleural Total Protein Pleural Albumin Pleural LDH Pleural Glucose Pleural Amylase Nasal Screen MRSA (PCR) Nasal S. aureus Screen Nasal MRSA/S.aureus Interp Vancomycin Trough Random Vancomycin Urine Opiates Screen Urine Fentanyl Screen Ur Barbiturates Screen Ur Phencyclidine Scrn Ur Amphetamines Screen U Benzodiazepines Scrn Urine Cocaine Screen U Marijuana (THC) Screen HIV 1&2 Ab/P24 Ag 4thGn Influenza Type A (PCR) Influenza Type B (PCR) Ur L.pneumophila Ag RSV RNA Qual (PCR) SARS-CoV-2 RNA (RT-PCR) Ur Strep pneumoniae Ag TB Test (T-Spot) Com TB Test Nil Control TB Test Panel A TB Test Panel B TB Test Positive Cntrl Ref Lab Test Result Blood Type Antibody Screen Crossmatch 11/26/22 11/26/22 11/26/22 15:59 16:02 16:13 WBC RBC Hgb Hct MCV MCH MCHC RDW Plt Count MPV Immature Gran % (Auto) Neut % (Auto) Lymph % (Auto) [place] % (Auto) Eos % (Auto) Baso % (Auto) Lymph # (Auto) [place] # (Auto) Eos # (Auto) Baso # (Auto) Abs Immat Gran (auto) Absolute Neuts (auto) Absolute Nucleated RBC Nucleated RBC % (auto) Neutrophils % (Manual) Band Neutrophils % Lymphocytes % (Manual) Atypical Lymphs % (Man) Monocytes % (Manual) Metamyelocytes % Myelocytes % Promyelocytes % Abs Neuts (Manual) Lymphocytes # (Manual) Atyp Lymphs # (Manual) Monocytes # (Manual) Metamyelocytes # Myelocytes # Promyelocytes # Smudge Cells Toxic Vacuolation Platelet Estimate Plt Morphology Comment RBC Morphology Polychromasia Hypochromasia Macrocytosis Spherocytes Target Cells Smear Tech's Comments Smear Path Review PT INR APTT Fibrinogen D-Dimer High Sensitivty O2 Saturation ABG pH at Pt Temp ABG pCO2 at Pt Temp ABG pO2 at Pt Temp ABG HCO3 ABG Base Excess (Actual) VBG pH 7.51 H VBG pCO2 31 VBG pO2 91 VBG HCO3 24 VBG O2 Saturation 98.0 VBG Base Excess 2.7 Sodium Potassium Chloride Carbon Dioxide Anion Gap BUN Creatinine Estim Creat Clear Calc Estimated GFR POC Glucose Random Glucose Lactic Acid 3.1 H* Lactic Acid F/U @ 2Hr Lactic Acid F/U @ 4Hr Calcium Phosphorus Magnesium Iron TIBC % Saturation Unsat Iron Binding Ferritin Total Bilirubin Direct Bilirubin AST ALT Alkaline Phosphatase Lactate Dehydrogenase Troponin I High Sens B-Natriuretic Peptide Total Protein Albumin Vitamin B12 Folate Procalcitonin 2.46 Urine Color Urine Appearance Urine pH Ur Specific [place] Urine Protein Urine Glucose (UA) Urine Ketones Urine Blood Urine Nitrite Ur Leukocyte Esterase Urine RBC Urine WBC Ur Squamous Epith Cells Urine Bacteria Hyaline Casts Granular Casts Pleural WBC Pleural RBC Pleural Neutrophils Pleural Monocytes Pleural Total Protein Pleural Albumin Pleural LDH Pleural Glucose Pleural Amylase Nasal Screen MRSA (PCR) Nasal S. aureus Screen Nasal MRSA/S.aureus Interp Vancomycin Trough Random Vancomycin Urine Opiates Screen Urine Fentanyl Screen Ur Barbiturates Screen Ur Phencyclidine Scrn Ur Amphetamines Screen U Benzodiazepines Scrn Urine Cocaine Screen U Marijuana (THC) Screen HIV 1&2 Ab/P24 Ag 4thGn Influenza Type A (PCR) Influenza Type B (PCR) Ur L.pneumophila Ag RSV RNA Qual (PCR) SARS-CoV-2 RNA (RT-PCR) Ur Strep pneumoniae Ag TB Test (T-Spot) Com TB Test Nil Control TB Test Panel A TB Test Panel B TB Test Positive Cntrl Ref Lab Test Result Blood Type Antibody Screen Crossmatch 11/26/22 11/26/22 11/26/22 17:36 17:36 18:34 WBC RBC Hgb Hct MCV MCH MCHC RDW Plt Count MPV Immature Gran % (Auto) Neut % (Auto) Lymph % (Auto) [place] % (Auto) Eos % (Auto) Baso % (Auto) Lymph # (Auto) [place] # (Auto) Eos # (Auto) Baso # (Auto) Abs Immat Gran (auto) Absolute Neuts (auto) Absolute Nucleated RBC Nucleated RBC % (auto) Neutrophils % (Manual) Band Neutrophils % Lymphocytes % (Manual) Atypical Lymphs % (Man) Monocytes % (Manual) Metamyelocytes % Myelocytes % Promyelocytes % Abs Neuts (Manual) Lymphocytes # (Manual) Atyp Lymphs # (Manual) Monocytes # (Manual) Metamyelocytes # Myelocytes # Promyelocytes # Smudge Cells Toxic Vacuolation Platelet Estimate Plt Morphology Comment RBC Morphology Polychromasia Hypochromasia Macrocytosis Spherocytes Target Cells Smear Tech's Comments Smear Path Review PT Cancelled 15.1 H INR Cancelled 1.3 H APTT Cancelled 27.2 Fibrinogen D-Dimer High Sensitivty O2 Saturation ABG pH at Pt Temp ABG pCO2 at Pt Temp ABG pO2 at Pt Temp ABG HCO3 ABG Base Excess (Actual) VBG pH VBG pCO2 VBG pO2 VBG HCO3 VBG O2 Saturation VBG Base Excess Sodium Potassium Chloride Carbon Dioxide Anion Gap BUN Creatinine Estim Creat Clear Calc Estimated GFR POC Glucose Random Glucose Lactic Acid Lactic Acid F/U @ 2Hr Lactic Acid F/U @ 4Hr Calcium Phosphorus Magnesium Iron TIBC % Saturation Unsat Iron Binding Ferritin Total Bilirubin Direct Bilirubin AST ALT Alkaline Phosphatase Lactate Dehydrogenase Troponin I High Sens B-Natriuretic Peptide Total Protein Albumin Vitamin B12 Folate Procalcitonin Urine Color Urine Appearance Urine pH Ur Specific [place] Urine Protein Urine Glucose (UA) Urine Ketones Urine Blood Urine Nitrite Ur Leukocyte Esterase Urine RBC Urine WBC Ur Squamous Epith Cells Urine Bacteria Hyaline Casts Granular Casts Pleural WBC Pleural RBC Pleural Neutrophils Pleural Monocytes Pleural Total Protein Pleural Albumin Pleural LDH Pleural Glucose Pleural Amylase Nasal Screen MRSA (PCR) Nasal S. aureus Screen Nasal MRSA/S.aureus Interp Vancomycin Trough Random Vancomycin Urine Opiates Screen Urine Fentanyl Screen Ur Barbiturates Screen Ur Phencyclidine Scrn Ur Amphetamines Screen U Benzodiazepines Scrn Urine Cocaine Screen U Marijuana (THC) Screen HIV 1&2 Ab/P24 Ag 4thGn Nonreactive Influenza Type A (PCR) Influenza Type B (PCR) Ur L.pneumophila Ag RSV RNA Qual (PCR) SARS-CoV-2 RNA (RT-PCR) Ur Strep pneumoniae Ag TB Test (T-Spot) Com TB Test Nil Control TB Test Panel A TB Test Panel B TB Test Positive Cntrl Ref Lab Test Result Blood Type Antibody Screen Crossmatch 11/26/22 11/26/22 11/26/22 18:34 20:30 20:30 WBC RBC Hgb Hct MCV MCH MCHC RDW Plt Count MPV Immature Gran % (Auto) Neut % (Auto) Lymph % (Auto) [place] % (Auto) Eos % (Auto) Baso % (Auto) Lymph # (Auto) [place] # (Auto) Eos # (Auto) Baso # (Auto) Abs Immat Gran (auto) Absolute Neuts (auto) Absolute Nucleated RBC Nucleated RBC % (auto) Neutrophils % (Manual) Band Neutrophils % Lymphocytes % (Manual) Atypical Lymphs % (Man) Monocytes % (Manual) Metamyelocytes % Myelocytes % Promyelocytes % Abs Neuts (Manual) Lymphocytes # (Manual) Atyp Lymphs # (Manual) Monocytes # (Manual) Metamyelocytes # Myelocytes # Promyelocytes # Smudge Cells Toxic Vacuolation Platelet Estimate Plt Morphology Comment RBC Morphology Polychromasia Hypochromasia Macrocytosis Spherocytes Target Cells Smear Tech's Comments Smear Path Review PT INR APTT Fibrinogen D-Dimer High Sensitivty O2 Saturation ABG pH at Pt Temp ABG pCO2 at Pt Temp ABG pO2 at Pt Temp ABG HCO3 ABG Base Excess (Actual) VBG pH VBG pCO2 VBG pO2 VBG HCO3 VBG O2 Saturation VBG Base Excess Sodium Potassium Chloride Carbon Dioxide Anion Gap BUN Creatinine Estim Creat Clear Calc Estimated GFR POC Glucose Random Glucose Lactic Acid Lactic Acid F/U @ 2Hr 4.0 H* Lactic Acid F/U @ 4Hr Calcium Phosphorus Magnesium Iron TIBC % Saturation Unsat Iron Binding Ferritin Total Bilirubin Direct Bilirubin AST ALT Alkaline Phosphatase Lactate Dehydrogenase Troponin I High Sens B-Natriuretic Peptide Total Protein Albumin Vitamin B12 Folate Procalcitonin Urine Color Dark Yellow Urine Appearance Cloudy Urine pH 5.0 Ur Specific [place] 1.025 Urine Protein 30 (1+) H Urine Glucose (UA) Negative Urine Ketones Trace Urine Blood Negative Urine Nitrite Negative Ur Leukocyte Esterase Trace H Urine RBC 3-5 H Urine WBC 0-5 Ur Squamous Epith Cells 3-5 Urine Bacteria None Seen Hyaline Casts >20 Granular Casts Pleural WBC Pleural RBC Pleural Neutrophils Pleural Monocytes Pleural Total Protein Pleural Albumin Pleural LDH Pleural Glucose Pleural Amylase Nasal Screen MRSA (PCR) Nasal S. aureus Screen Nasal MRSA/S.aureus Interp Vancomycin Trough Random Vancomycin Urine Opiates Screen Not Detected Urine Fentanyl Screen Not Detected Ur Barbiturates Screen Not Detected Ur Phencyclidine Scrn POSITIVE H Ur Amphetamines Screen Not Detected U Benzodiazepines Scrn Not Detected Urine Cocaine Screen Not Detected U Marijuana (THC) Screen Not Detected HIV 1&2 Ab/P24 Ag 4thGn Influenza Type A (PCR) Influenza Type B (PCR) Ur L.pneumophila Ag RSV RNA Qual (PCR) SARS-CoV-2 RNA (RT-PCR) Ur Strep pneumoniae Ag TB Test (T-Spot) Com TB Test Nil Control TB Test Panel A TB Test Panel B TB Test Positive Cntrl Ref Lab Test Result Blood Type Antibody Screen Crossmatch 11/26/22 11/26/22 11/26/22 21:03 21:36 21:36 WBC RBC Hgb Hct MCV MCH MCHC RDW Plt Count MPV Immature Gran % (Auto) Neut % (Auto) Lymph % (Auto) [place] % (Auto) Eos % (Auto) Baso % (Auto) Lymph # (Auto) [place] # (Auto) Eos # (Auto) Baso # (Auto) Abs Immat Gran (auto) Absolute Neuts (auto) Absolute Nucleated RBC Nucleated RBC % (auto) Neutrophils % (Manual) Band Neutrophils % Lymphocytes % (Manual) Atypical Lymphs % (Man) Monocytes % (Manual) Metamyelocytes % Myelocytes % Promyelocytes % Abs Neuts (Manual) Lymphocytes # (Manual) Atyp Lymphs # (Manual) Monocytes # (Manual) Metamyelocytes # Myelocytes # Promyelocytes # Smudge Cells Toxic Vacuolation Platelet Estimate Plt Morphology Comment RBC Morphology Polychromasia Hypochromasia Macrocytosis Spherocytes Target Cells Smear Tech's Comments Smear Path Review PT INR APTT Fibrinogen D-Dimer High Sensitivty O2 Saturation ABG pH at Pt Temp ABG pCO2 at Pt Temp ABG pO2 at Pt Temp ABG HCO3 ABG Base Excess (Actual) VBG pH VBG pCO2 VBG pO2 VBG HCO3 VBG O2 Saturation VBG Base Excess Sodium Potassium Chloride Carbon Dioxide Anion Gap BUN Creatinine Estim Creat Clear Calc Estimated GFR POC Glucose Random Glucose Lactic Acid Lactic Acid F/U @ 2Hr Lactic Acid F/U @ 4Hr 3.4 H* Calcium Phosphorus Magnesium Iron TIBC % Saturation Unsat Iron Binding Ferritin Total Bilirubin Direct Bilirubin AST ALT Alkaline Phosphatase Lactate Dehydrogenase Troponin I High Sens B-Natriuretic Peptide Total Protein Albumin Vitamin B12 Folate Procalcitonin Urine Color Urine Appearance Urine pH Ur Specific [place] Urine Protein Urine Glucose (UA) Urine Ketones Urine Blood Urine Nitrite Ur Leukocyte Esterase Urine RBC Urine WBC Ur Squamous Epith Cells Urine Bacteria Hyaline Casts Granular Casts Pleural WBC Pleural RBC Pleural Neutrophils Pleural Monocytes Pleural Total Protein Pleural Albumin Pleural LDH Pleural Glucose Pleural Amylase Nasal Screen MRSA (PCR) POSITIVE A Nasal S. aureus Screen POSITIVE A Nasal MRSA/S.aureus Interp SEE NOTE Vancomycin Trough Random Vancomycin Urine Opiates Screen Urine Fentanyl Screen Ur Barbiturates Screen Ur Phencyclidine Scrn Ur Amphetamines Screen U Benzodiazepines Scrn Urine Cocaine Screen U Marijuana (THC) Screen HIV 1&2 Ab/P24 Ag 4thGn Influenza Type A (PCR) Influenza Type B (PCR) Ur L.pneumophila Ag Not Detected RSV RNA Qual (PCR) SARS-CoV-2 RNA (RT-PCR) Ur Strep pneumoniae Ag Not Detected TB Test (T-Spot) Com TB Test Nil Control TB Test Panel A TB Test Panel B TB Test Positive Cntrl Ref Lab Test Result Blood Type Antibody Screen Crossmatch 11/27/22 11/27/22 11/27/22 05:52 05:52 08:50 WBC 45.2 H* RBC 3.95 L Hgb 11.1 L Hct 34.8 L MCV 88.1 MCH 28.1 MCHC 31.9 RDW 15.5 Plt Count 203 MPV 10.2 Immature Gran % (Auto) Neut % (Auto) Lymph % (Auto) [place] % (Auto) Eos % (Auto) Baso % (Auto) Lymph # (Auto) [place] # (Auto) Eos # (Auto) Baso # (Auto) Abs Immat Gran (auto) Absolute Neuts (auto) Absolute Nucleated RBC 0.040 H Nucleated RBC % (auto) 0.1 Neutrophils % (Manual) Band Neutrophils % Lymphocytes % (Manual) Atypical Lymphs % (Man) Monocytes % (Manual) Metamyelocytes % Myelocytes % Promyelocytes % Abs Neuts (Manual) Lymphocytes # (Manual) Atyp Lymphs # (Manual) Monocytes # (Manual) Metamyelocytes # Myelocytes # Promyelocytes # Smudge Cells Toxic Vacuolation Platelet Estimate Plt Morphology Comment RBC Morphology Polychromasia Hypochromasia Macrocytosis Spherocytes Target Cells Smear Tech's Comments Smear Path Review PT INR APTT Fibrinogen D-Dimer High Sensitivty O2 Saturation ABG pH at Pt Temp ABG pCO2 at Pt Temp ABG pO2 at Pt Temp ABG HCO3 ABG Base Excess (Actual) VBG pH VBG pCO2 VBG pO2 VBG HCO3 VBG O2 Saturation VBG Base Excess Sodium 137 Potassium 4.0 Chloride 101 Carbon Dioxide 22 Anion Gap 18 BUN 38 H Creatinine 2.14 H Estim Creat Clear Calc 58.7 Estimated GFR 34 POC Glucose Random Glucose 217 H Lactic Acid Lactic Acid F/U @ 2Hr Lactic Acid F/U @ 4Hr Calcium 8.0 L D Phosphorus Magnesium Iron TIBC % Saturation Unsat Iron Binding Ferritin Total Bilirubin Direct Bilirubin AST ALT Alkaline Phosphatase Lactate Dehydrogenase Troponin I High Sens B-Natriuretic Peptide Total Protein Albumin Vitamin B12 Folate Procalcitonin Urine Color Dark Yellow Urine Appearance Cloudy Urine pH 5.0 Ur Specific [place] 1.020 Urine Protein 30 (1+) H Urine Glucose (UA) Negative Urine Ketones Trace Urine Blood Negative Urine Nitrite Negative Ur Leukocyte Esterase Trace H Urine RBC 0-2 Urine WBC 0-5 Ur Squamous Epith Cells 6-10 Urine Bacteria None Seen Hyaline Casts 6-10 Granular Casts Present Pleural WBC Pleural RBC Pleural Neutrophils Pleural Monocytes Pleural Total Protein Pleural Albumin Pleural LDH Pleural Glucose Pleural Amylase Nasal Screen MRSA (PCR) Nasal S. aureus Screen Nasal MRSA/S.aureus Interp Vancomycin Trough Random Vancomycin Urine Opiates Screen Urine Fentanyl Screen Ur Barbiturates Screen Ur Phencyclidine Scrn Ur Amphetamines Screen U Benzodiazepines Scrn Urine Cocaine Screen U Marijuana (THC) Screen HIV 1&2 Ab/P24 Ag 4thGn Influenza Type A (PCR) Influenza Type B (PCR) Ur L.pneumophila Ag RSV RNA Qual (PCR) SARS-CoV-2 RNA (RT-PCR) Ur Strep pneumoniae Ag TB Test (T-Spot) Com TB Test Nil Control TB Test Panel A TB Test Panel B TB Test Positive Cntrl Ref Lab Test Result Blood Type Antibody Screen Crossmatch 11/28/22 11/28/22 11/28/22 06:57 06:57 06:57 WBC 39.5 H* RBC 3.85 L Hgb 10.8 L Hct 33.2 L MCV 86.2 MCH 28.1 MCHC 32.5 RDW 15.9 Plt Count 194 MPV 9.9 Immature Gran % (Auto) Cancelled Neut % (Auto) Cancelled Lymph % (Auto) Cancelled [place] % (Auto) Cancelled Eos % (Auto) Cancelled Baso % (Auto) Cancelled Lymph # (Auto) Cancelled [place] # (Auto) Cancelled Eos # (Auto) Cancelled Baso # (Auto) Cancelled Abs Immat Gran (auto) Cancelled Absolute Neuts (auto) Cancelled Absolute Nucleated RBC 0.060 H Nucleated RBC % (auto) 0.2 Neutrophils % (Manual) 82 H Band Neutrophils % 8 H Lymphocytes % (Manual) 5 L Atypical Lymphs % (Man) Monocytes % (Manual) 4 Metamyelocytes % 1 Myelocytes % Promyelocytes % Abs Neuts (Manual) 35.6 H Lymphocytes # (Manual) 2.0 Atyp Lymphs # (Manual) Monocytes # (Manual) 1.6 H Metamyelocytes # 0.4 Myelocytes # Promyelocytes # Smudge Cells Toxic Vacuolation PRESENT Platelet Estimate NORMAL Plt Morphology Comment NORMAL RBC Morphology NORMAL Polychromasia Hypochromasia Macrocytosis Spherocytes Target Cells Smear Tech's Comments Smear Path Review PT INR APTT Fibrinogen D-Dimer High Sensitivty O2 Saturation ABG pH at Pt Temp ABG pCO2 at Pt Temp ABG pO2 at Pt Temp ABG HCO3 ABG Base Excess (Actual) VBG pH VBG pCO2 VBG pO2 VBG HCO3 VBG O2 Saturation VBG Base Excess Sodium 138 Potassium 4.1 Chloride 102 Carbon Dioxide 28 Anion Gap 12 BUN 41 H Creatinine 1.00 Estim Creat Clear Calc 125.6 Estimated GFR > 60 POC Glucose Random Glucose 105 Lactic Acid Lactic Acid F/U @ 2Hr Lactic Acid F/U @ 4Hr Calcium 8.2 L Phosphorus Magnesium Iron TIBC % Saturation Unsat Iron Binding Ferritin Total Bilirubin Direct Bilirubin AST ALT Alkaline Phosphatase Lactate Dehydrogenase Troponin I High Sens B-Natriuretic Peptide Total Protein Albumin Vitamin B12 Folate Procalcitonin 2.01 Urine Color Urine Appearance Urine pH Ur Specific [place] Urine Protein Urine Glucose (UA) Urine Ketones Urine Blood Urine Nitrite Ur Leukocyte Esterase Urine RBC Urine WBC Ur Squamous Epith Cells Urine Bacteria Hyaline Casts Granular Casts Pleural WBC Pleural RBC Pleural Neutrophils Pleural Monocytes Pleural Total Protein Pleural Albumin Pleural LDH Pleural Glucose Pleural Amylase Nasal Screen MRSA (PCR) Nasal S. aureus Screen Nasal MRSA/S.aureus Interp Vancomycin Trough 6.2 L Random Vancomycin Urine Opiates Screen Urine Fentanyl Screen Ur Barbiturates Screen Ur Phencyclidine Scrn Ur Amphetamines Screen U Benzodiazepines Scrn Urine Cocaine Screen U Marijuana (THC) Screen HIV 1&2 Ab/P24 Ag 4thGn Influenza Type A (PCR) Influenza Type B (PCR) Ur L.pneumophila Ag RSV RNA Qual (PCR) SARS-CoV-2 RNA (RT-PCR) Ur Strep pneumoniae Ag TB Test (T-Spot) Com TB Test Nil Control TB Test Panel A TB Test Panel B TB Test Positive Cntrl Ref Lab Test Result Blood Type Antibody Screen Crossmatch 11/28/22 11/28/22 11/29/22 15:53 20:58 07:55 WBC RBC Hgb Hct MCV MCH MCHC RDW Plt Count MPV Immature Gran % (Auto) Neut % (Auto) Lymph % (Auto) [place] % (Auto) Eos % (Auto) Baso % (Auto) Lymph # (Auto) [place] # (Auto) Eos # (Auto) Baso # (Auto) Abs Immat Gran (auto) Absolute Neuts (auto) Absolute Nucleated RBC Nucleated RBC % (auto) Neutrophils % (Manual) Band Neutrophils % Lymphocytes % (Manual) Atypical Lymphs % (Man) Monocytes % (Manual) Metamyelocytes % Myelocytes % Promyelocytes % Abs Neuts (Manual) Lymphocytes # (Manual) Atyp Lymphs # (Manual) Monocytes # (Manual) Metamyelocytes # Myelocytes # Promyelocytes # Smudge Cells Toxic Vacuolation Platelet Estimate Plt Morphology Comment RBC Morphology Polychromasia Hypochromasia Macrocytosis Spherocytes Target Cells Smear Tech's Comments Smear Path Review PT INR APTT Fibrinogen D-Dimer High Sensitivty O2 Saturation ABG pH at Pt Temp ABG pCO2 at Pt Temp ABG pO2 at Pt Temp ABG HCO3 ABG Base Excess (Actual) VBG pH VBG pCO2 VBG pO2 VBG HCO3 VBG O2 Saturation VBG Base Excess Sodium Potassium Chloride Carbon Dioxide Anion Gap BUN Creatinine Estim Creat Clear Calc Estimated GFR POC Glucose 197 H 192 H Random Glucose Lactic Acid Lactic Acid F/U @ 2Hr Lactic Acid F/U @ 4Hr Calcium Phosphorus Magnesium Iron TIBC % Saturation Unsat Iron Binding Ferritin Total Bilirubin Direct Bilirubin AST ALT Alkaline Phosphatase Lactate Dehydrogenase Troponin I High Sens B-Natriuretic Peptide Total Protein Albumin Vitamin B12 Folate Procalcitonin Urine Color Urine Appearance Urine pH Ur Specific [place] Urine Protein Urine Glucose (UA) Urine Ketones Urine Blood Urine Nitrite Ur Leukocyte Esterase Urine RBC Urine WBC Ur Squamous Epith Cells Urine Bacteria Hyaline Casts Granular Casts Pleural WBC Pleural RBC Pleural Neutrophils Pleural Monocytes Pleural Total Protein Pleural Albumin Pleural LDH Pleural Glucose Pleural Amylase Nasal Screen MRSA (PCR) Nasal S. aureus Screen Nasal MRSA/S.aureus Interp Vancomycin Trough Random Vancomycin 5.1 L Urine Opiates Screen Urine Fentanyl Screen Ur Barbiturates Screen Ur Phencyclidine Scrn Ur Amphetamines Screen U Benzodiazepines Scrn Urine Cocaine Screen U Marijuana (THC) Screen HIV 1&2 Ab/P24 Ag 4thGn Influenza Type A (PCR) Influenza Type B (PCR) Ur L.pneumophila Ag RSV RNA Qual (PCR) SARS-CoV-2 RNA (RT-PCR) Ur Strep pneumoniae Ag TB Test (T-Spot) Com TB Test Nil Control TB Test Panel A TB Test Panel B TB Test Positive Cntrl Ref Lab Test Result Blood Type Antibody Screen Crossmatch 11/29/22 11/29/22 11/29/22 07:55 07:55 07:55 WBC 28.1 H RBC 3.91 L Hgb 10.9 L Hct 33.8 L MCV 86.4 MCH 27.9 MCHC 32.2 RDW 16.4 H Plt Count 174 MPV 10.1 Immature Gran % (Auto) Neut % (Auto) Lymph % (Auto) [place] % (Auto) Eos % (Auto) Baso % (Auto) Lymph # (Auto) [place] # (Auto) Eos # (Auto) Baso # (Auto) Abs Immat Gran (auto) Absolute Neuts (auto) Absolute Nucleated RBC 0.080 H Nucleated RBC % (auto) 0.3 H Neutrophils % (Manual) Band Neutrophils % Lymphocytes % (Manual) Atypical Lymphs % (Man) Monocytes % (Manual) Metamyelocytes % Myelocytes % Promyelocytes % Abs Neuts (Manual) Lymphocytes # (Manual) Atyp Lymphs # (Manual) Monocytes # (Manual) Metamyelocytes # Myelocytes # Promyelocytes # Smudge Cells Toxic Vacuolation Platelet Estimate Plt Morphology Comment RBC Morphology Polychromasia Hypochromasia Macrocytosis Spherocytes Target Cells Smear Tech's Comments Smear Path Review PT INR APTT Fibrinogen D-Dimer High Sensitivty O2 Saturation ABG pH at Pt Temp ABG pCO2 at Pt Temp ABG pO2 at Pt Temp ABG HCO3 ABG Base Excess (Actual) VBG pH VBG pCO2 VBG pO2 VBG HCO3 VBG O2 Saturation VBG Base Excess Sodium 138 Potassium 4.5 Chloride 101 Carbon Dioxide 28 Anion Gap 14 BUN 31 H Creatinine 0.87 Estim Creat Clear Calc 144.4 Estimated GFR > 60 POC Glucose Random Glucose 112 Lactic Acid Lactic Acid F/U @ 2Hr Lactic Acid F/U @ 4Hr Calcium 8.2 L Phosphorus Magnesium Iron TIBC % Saturation Unsat Iron Binding Ferritin Total Bilirubin Direct Bilirubin AST ALT Alkaline Phosphatase Lactate Dehydrogenase Troponin I High Sens B-Natriuretic Peptide Total Protein Albumin Vitamin B12 Folate Procalcitonin Urine Color Urine Appearance Urine pH Ur Specific [place] Urine Protein Urine Glucose (UA) Urine Ketones Urine Blood Urine Nitrite Ur Leukocyte Esterase Urine RBC Urine WBC Ur Squamous Epith Cells Urine Bacteria Hyaline Casts Granular Casts Pleural WBC Pleural RBC Pleural Neutrophils Pleural Monocytes Pleural Total Protein Pleural Albumin Pleural LDH Pleural Glucose Pleural Amylase Nasal Screen MRSA (PCR) Nasal S. aureus Screen Nasal MRSA/S.aureus Interp Vancomycin Trough Random Vancomycin Urine Opiates Screen Urine Fentanyl Screen Ur Barbiturates Screen Ur Phencyclidine Scrn Ur Amphetamines Screen U Benzodiazepines Scrn Urine Cocaine Screen U Marijuana (THC) Screen HIV 1&2 Ab/P24 Ag 4thGn Influenza Type A (PCR) Influenza Type B (PCR) Ur L.pneumophila Ag RSV RNA Qual (PCR) SARS-CoV-2 RNA (RT-PCR) Ur Strep pneumoniae Ag TB Test (T-Spot) Com Negative TB Test Nil Control Passed TB Test Panel A 0 TB Test Panel B 0 TB Test Positive Cntrl Passed Ref Lab Test Result Blood Type Antibody Screen Crossmatch 11/30/22 11/30/22 11/30/22 01:48 09:02 09:49 WBC RBC Hgb Hct MCV MCH MCHC RDW Plt Count MPV Immature Gran % (Auto) Neut % (Auto) Lymph % (Auto) [place] % (Auto) Eos % (Auto) Baso % (Auto) Lymph # (Auto) [place] # (Auto) Eos # (Auto) Baso # (Auto) Abs Immat Gran (auto) Absolute Neuts (auto) Absolute Nucleated RBC Nucleated RBC % (auto) Neutrophils % (Manual) Band Neutrophils % Lymphocytes % (Manual) Atypical Lymphs % (Man) Monocytes % (Manual) Metamyelocytes % Myelocytes % Promyelocytes % Abs Neuts (Manual) Lymphocytes # (Manual) Atyp Lymphs # (Manual) Monocytes # (Manual) Metamyelocytes # Myelocytes # Promyelocytes # Smudge Cells Toxic Vacuolation Platelet Estimate Plt Morphology Comment RBC Morphology Polychromasia Hypochromasia Macrocytosis Spherocytes Target Cells Smear Tech's Comments Smear Path Review PT INR APTT Fibrinogen D-Dimer High Sensitivty O2 Saturation 93.0 ABG pH at Pt Temp 7.36 ABG pCO2 at Pt Temp 54 H ABG pO2 at Pt Temp 70 L ABG HCO3 31 H ABG Base Excess (Actual) 4.3 VBG pH VBG pCO2 VBG pO2 VBG HCO3 VBG O2 Saturation VBG Base Excess Sodium Potassium Chloride Carbon Dioxide Anion Gap BUN Creatinine Estim Creat Clear Calc Estimated GFR POC Glucose 155 H Random Glucose Lactic Acid Lactic Acid F/U @ 2Hr Lactic Acid F/U @ 4Hr Calcium Phosphorus Magnesium Iron TIBC % Saturation Unsat Iron Binding Ferritin Total Bilirubin Direct Bilirubin AST ALT Alkaline Phosphatase Lactate Dehydrogenase Troponin I High Sens B-Natriuretic Peptide Total Protein Albumin Vitamin B12 Folate Procalcitonin Urine Color Urine Appearance Urine pH Ur Specific [place] Urine Protein Urine Glucose (UA) Urine Ketones Urine Blood Urine Nitrite Ur Leukocyte Esterase Urine RBC Urine WBC Ur Squamous Epith Cells Urine Bacteria Hyaline Casts Granular Casts Pleural WBC Pleural RBC Pleural Neutrophils Pleural Monocytes Pleural Total Protein Pleural Albumin Pleural LDH Pleural Glucose Pleural Amylase Nasal Screen MRSA (PCR) Nasal S. aureus Screen Nasal MRSA/S.aureus Interp Vancomycin Trough Random Vancomycin Urine Opiates Screen Urine Fentanyl Screen Ur Barbiturates Screen Ur Phencyclidine Scrn Ur Amphetamines Screen U Benzodiazepines Scrn Urine Cocaine Screen U Marijuana (THC) Screen HIV 1&2 Ab/P24 Ag 4thGn Influenza Type A (PCR) Influenza Type B (PCR) Ur L.pneumophila Ag RSV RNA Qual (PCR) SARS-CoV-2 RNA (RT-PCR) Ur Strep pneumoniae Ag TB Test (T-Spot) Com TB Test Nil Control TB Test Panel A TB Test Panel B TB Test Positive Cntrl Ref Lab Test Result SEE NOTE Blood Type Antibody Screen Crossmatch 11/30/22 11/30/22 11/30/22 16:45 16:45 18:30 WBC RBC Hgb Hct MCV MCH MCHC RDW Plt Count MPV Immature Gran % (Auto) Neut % (Auto) Lymph % (Auto) [place] % (Auto) Eos % (Auto) Baso % (Auto) Lymph # (Auto) [place] # (Auto) Eos # (Auto) Baso # (Auto) Abs Immat Gran (auto) Absolute Neuts (auto) Absolute Nucleated RBC Nucleated RBC % (auto) Neutrophils % (Manual) Band Neutrophils % Lymphocytes % (Manual) Atypical Lymphs % (Man) Monocytes % (Manual) Metamyelocytes % Myelocytes % Promyelocytes % Abs Neuts (Manual) Lymphocytes # (Manual) Atyp Lymphs # (Manual) Monocytes # (Manual) Metamyelocytes # Myelocytes # Promyelocytes # Smudge Cells Toxic Vacuolation Platelet Estimate Plt Morphology Comment RBC Morphology Polychromasia Hypochromasia Macrocytosis Spherocytes Target Cells Smear Tech's Comments Smear Path Review PT 15.4 H INR 1.3 H APTT Fibrinogen D-Dimer High Sensitivty O2 Saturation ABG pH at Pt Temp ABG pCO2 at Pt Temp ABG pO2 at Pt Temp ABG HCO3 ABG Base Excess (Actual) VBG pH VBG pCO2 VBG pO2 VBG HCO3 VBG O2 Saturation VBG Base Excess Sodium Potassium Chloride Carbon Dioxide Anion Gap BUN Creatinine Estim Creat Clear Calc Estimated GFR POC Glucose Random Glucose Lactic Acid Lactic Acid F/U @ 2Hr Lactic Acid F/U @ 4Hr Calcium Phosphorus Magnesium Iron TIBC % Saturation Unsat Iron Binding Ferritin Total Bilirubin Direct Bilirubin AST ALT Alkaline Phosphatase Lactate Dehydrogenase 400 H Troponin I High Sens B-Natriuretic Peptide Total Protein 6.5 Albumin 2.2 L Vitamin B12 Folate Procalcitonin Urine Color Urine Appearance Urine pH Ur Specific [place] Urine Protein Urine Glucose (UA) Urine Ketones Urine Blood Urine Nitrite Ur Leukocyte Esterase Urine RBC Urine WBC Ur Squamous Epith Cells Urine Bacteria Hyaline Casts Granular Casts Pleural WBC Pleural RBC Pleural Neutrophils Pleural Monocytes Pleural Total Protein Pleural Albumin 1.8 Pleural LDH Pleural Glucose Pleural Amylase Nasal Screen MRSA (PCR) Nasal S. aureus Screen Nasal MRSA/S.aureus Interp Vancomycin Trough Random Vancomycin Urine Opiates Screen Urine Fentanyl Screen Ur Barbiturates Screen Ur Phencyclidine Scrn Ur Amphetamines Screen U Benzodiazepines Scrn Urine Cocaine Screen U Marijuana (THC) Screen HIV 1&2 Ab/P24 Ag 4thGn Influenza Type A (PCR) Influenza Type B (PCR) Ur L.pneumophila Ag RSV RNA Qual (PCR) SARS-CoV-2 RNA (RT-PCR) Ur Strep pneumoniae Ag TB Test (T-Spot) Com TB Test Nil Control TB Test Panel A TB Test Panel B TB Test Positive Cntrl Ref Lab Test Result Blood Type Antibody Screen Crossmatch 11/30/22 11/30/22 11/30/22 18:30 18:30 18:30 WBC RBC Hgb Hct MCV MCH MCHC RDW Plt Count MPV Immature Gran % (Auto) Neut % (Auto) Lymph % (Auto) [place] % (Auto) Eos % (Auto) Baso % (Auto) Lymph # (Auto) [place] # (Auto) Eos # (Auto) Baso # (Auto) Abs Immat Gran (auto) Absolute Neuts (auto) Absolute Nucleated RBC Nucleated RBC % (auto) Neutrophils % (Manual) Band Neutrophils % Lymphocytes % (Manual) Atypical Lymphs % (Man) Monocytes % (Manual) Metamyelocytes % Myelocytes % Promyelocytes % Abs Neuts (Manual) Lymphocytes # (Manual) Atyp Lymphs # (Manual) Monocytes # (Manual) Metamyelocytes # Myelocytes # Promyelocytes # Smudge Cells Toxic Vacuolation Platelet Estimate Plt Morphology Comment RBC Morphology Polychromasia Hypochromasia Macrocytosis Spherocytes Target Cells Smear Tech's Comments Smear Path Review PT INR APTT Fibrinogen D-Dimer High Sensitivty O2 Saturation ABG pH at Pt Temp ABG pCO2 at Pt Temp ABG pO2 at Pt Temp ABG HCO3 ABG Base Excess (Actual) VBG pH VBG pCO2 VBG pO2 VBG HCO3 VBG O2 Saturation VBG Base Excess Sodium Potassium Chloride Carbon Dioxide Anion Gap BUN Creatinine Estim Creat Clear Calc Estimated GFR POC Glucose Random Glucose Lactic Acid Lactic Acid F/U @ 2Hr Lactic Acid F/U @ 4Hr Calcium Phosphorus Magnesium Iron TIBC % Saturation Unsat Iron Binding Ferritin Total Bilirubin Direct Bilirubin AST ALT Alkaline Phosphatase Lactate Dehydrogenase Troponin I High Sens B-Natriuretic Peptide Total Protein Albumin Vitamin B12 Folate Procalcitonin Urine Color Urine Appearance Urine pH Ur Specific [place] Urine Protein Urine Glucose (UA) Urine Ketones Urine Blood Urine Nitrite Ur Leukocyte Esterase Urine RBC Urine WBC Ur Squamous Epith Cells Urine Bacteria Hyaline Casts Granular Casts Pleural WBC 3.191 Pleural RBC 0.003 Pleural Neutrophils 96 Pleural Monocytes 4 Pleural Total Protein Pleural Albumin Pleural LDH Pleural Glucose 69 Pleural Amylase 16 Nasal Screen MRSA (PCR) Nasal S. aureus Screen Nasal MRSA/S.aureus Interp Vancomycin Trough Random Vancomycin Urine Opiates Screen Urine Fentanyl Screen Ur Barbiturates Screen Ur Phencyclidine Scrn Ur Amphetamines Screen U Benzodiazepines Scrn Urine Cocaine Screen U Marijuana (THC) Screen HIV 1&2 Ab/P24 Ag 4thGn Influenza Type A (PCR) Influenza Type B (PCR) Ur L.pneumophila Ag RSV RNA Qual (PCR) SARS-CoV-2 RNA (RT-PCR) Ur Strep pneumoniae Ag TB Test (T-Spot) Com TB Test Nil Control TB Test Panel A TB Test Panel B TB Test Positive Cntrl Ref Lab Test Result Blood Type Antibody Screen Crossmatch 11/30/22 11/30/22 12/01/22 18:30 18:30 04:59 WBC RBC Hgb Hct MCV MCH MCHC RDW Plt Count MPV Immature Gran % (Auto) Neut % (Auto) Lymph % (Auto) [place] % (Auto) Eos % (Auto) Baso % (Auto) Lymph # (Auto) [place] # (Auto) Eos # (Auto) Baso # (Auto) Abs Immat Gran (auto) Absolute Neuts (auto) Absolute Nucleated RBC Nucleated RBC % (auto) Neutrophils % (Manual) Band Neutrophils % Lymphocytes % (Manual) Atypical Lymphs % (Man) Monocytes % (Manual) Metamyelocytes % Myelocytes % Promyelocytes % Abs Neuts (Manual) Lymphocytes # (Manual) Atyp Lymphs # (Manual) Monocytes # (Manual) Metamyelocytes # Myelocytes # Promyelocytes # Smudge Cells Toxic Vacuolation Platelet Estimate Plt Morphology Comment RBC Morphology Polychromasia Hypochromasia Macrocytosis Spherocytes Target Cells Smear Tech's Comments Smear Path Review PT INR APTT Fibrinogen D-Dimer High Sensitivty O2 Saturation ABG pH at Pt Temp ABG pCO2 at Pt Temp ABG pO2 at Pt Temp ABG HCO3 ABG Base Excess (Actual) VBG pH 7.49 H VBG pCO2 43 VBG pO2 60 VBG HCO3 33 H VBG O2 Saturation 90.0 VBG Base Excess 9.1 Sodium Potassium Chloride Carbon Dioxide Anion Gap BUN Creatinine Estim Creat Clear Calc Estimated GFR POC Glucose Random Glucose Lactic Acid Lactic Acid F/U @ 2Hr Lactic Acid F/U @ 4Hr Calcium Phosphorus Magnesium Iron TIBC % Saturation Unsat Iron Binding Ferritin Total Bilirubin Direct Bilirubin AST ALT Alkaline Phosphatase Lactate Dehydrogenase Troponin I High Sens B-Natriuretic Peptide Total Protein Albumin Vitamin B12 Folate Procalcitonin Urine Color Urine Appearance Urine pH Ur Specific [place] Urine Protein Urine Glucose (UA) Urine Ketones Urine Blood Urine Nitrite Ur Leukocyte Esterase Urine RBC Urine WBC Ur Squamous Epith Cells Urine Bacteria Hyaline Casts Granular Casts Pleural WBC Pleural RBC Pleural Neutrophils Pleural Monocytes Pleural Total Protein 4.3 Pleural Albumin Pleural LDH 1267 Pleural Glucose Pleural Amylase Nasal Screen MRSA (PCR) Nasal S. aureus Screen Nasal MRSA/S.aureus Interp Vancomycin Trough Random Vancomycin Urine Opiates Screen Urine Fentanyl Screen Ur Barbiturates Screen Ur Phencyclidine Scrn Ur Amphetamines Screen U Benzodiazepines Scrn Urine Cocaine Screen U Marijuana (THC) Screen HIV 1&2 Ab/P24 Ag 4thGn Influenza Type A (PCR) Influenza Type B (PCR) Ur L.pneumophila Ag RSV RNA Qual (PCR) SARS-CoV-2 RNA (RT-PCR) Ur Strep pneumoniae Ag TB Test (T-Spot) Com TB Test Nil Control TB Test Panel A TB Test Panel B TB Test Positive Cntrl Ref Lab Test Result Blood Type Antibody Screen Crossmatch 12/01/22 12/01/22 12/01/22 05:02 05:02 05:02 WBC 28.0 H RBC 3.80 L Hgb 10.6 L Hct 32.4 L MCV 85.3 MCH 27.9 MCHC 32.7 RDW 16.3 H Plt Count 114 L D MPV 10.3 Immature Gran % (Auto) Cancelled Neut % (Auto) Cancelled Lymph % (Auto) Cancelled [place] % (Auto) Cancelled Eos % (Auto) Cancelled Baso % (Auto) Cancelled Lymph # (Auto) Cancelled [place] # (Auto) Cancelled Eos # (Auto) Cancelled Baso # (Auto) Cancelled Abs Immat Gran (auto) Cancelled Absolute Neuts (auto) Cancelled Absolute Nucleated RBC 0.040 H Nucleated RBC % (auto) 0.1 Neutrophils % (Manual) 72 Band Neutrophils % 10 H Lymphocytes % (Manual) 8 L Atypical Lymphs % (Man) 1 Monocytes % (Manual) 5 Metamyelocytes % Myelocytes % 3 Promyelocytes % 1 Abs Neuts (Manual) 23.0 H Lymphocytes # (Manual) 2.2 Atyp Lymphs # (Manual) 0.3 Monocytes # (Manual) 1.4 H Metamyelocytes # Myelocytes # 0.8 Promyelocytes # 0.3 Smudge Cells PRESENT Toxic Vacuolation PRESENT Platelet Estimate SLIGHTLY DECREASED Plt Morphology Comment NORMAL RBC Morphology NOTED Polychromasia 1+ (0-2) Hypochromasia Macrocytosis 1+ (5-14) Spherocytes Target Cells 1+ (5-14) Smear Tech's Comments Smear Path Review PT 16.0 H INR 1.4 H APTT Fibrinogen D-Dimer High Sensitivty O2 Saturation ABG pH at Pt Temp ABG pCO2 at Pt Temp ABG pO2 at Pt Temp ABG HCO3 ABG Base Excess (Actual) VBG pH VBG pCO2 VBG pO2 VBG HCO3 VBG O2 Saturation VBG Base Excess Sodium 135 Potassium 5.1 Chloride 99 Carbon Dioxide 29 Anion Gap 12 BUN 19 H Creatinine 0.69 Estim Creat Clear Calc 182.1 Estimated GFR > 60 POC Glucose Random Glucose 113 Lactic Acid Lactic Acid F/U @ 2Hr Lactic Acid F/U @ 4Hr Calcium 8.0 L Phosphorus 3.5 Magnesium 2.2 Iron TIBC % Saturation Unsat Iron Binding Ferritin Total Bilirubin 1.0 Direct Bilirubin AST 22 ALT 8 Alkaline Phosphatase 83 Lactate Dehydrogenase Troponin I High Sens B-Natriuretic Peptide Total Protein 6.1 L Albumin 1.9 L Vitamin B12 Folate Procalcitonin Urine Color Urine Appearance Urine pH Ur Specific [place] Urine Protein Urine Glucose (UA) Urine Ketones Urine Blood Urine Nitrite Ur Leukocyte Esterase Urine RBC Urine WBC Ur Squamous Epith Cells Urine Bacteria Hyaline Casts Granular Casts Pleural WBC Pleural RBC Pleural Neutrophils Pleural Monocytes Pleural Total Protein Pleural Albumin Pleural LDH Pleural Glucose Pleural Amylase Nasal Screen MRSA (PCR) Nasal S. aureus Screen Nasal MRSA/S.aureus Interp Vancomycin Trough Random Vancomycin Urine Opiates Screen Urine Fentanyl Screen Ur Barbiturates Screen Ur Phencyclidine Scrn Ur Amphetamines Screen U Benzodiazepines Scrn Urine Cocaine Screen U Marijuana (THC) Screen HIV 1&2 Ab/P24 Ag 4thGn Influenza Type A (PCR) Influenza Type B (PCR) Ur L.pneumophila Ag RSV RNA Qual (PCR) SARS-CoV-2 RNA (RT-PCR) Ur Strep pneumoniae Ag TB Test (T-Spot) Com TB Test Nil Control TB Test Panel A TB Test Panel B TB Test Positive Cntrl Ref Lab Test Result Blood Type Antibody Screen Crossmatch 12/02/22 12/02/22 12/02/22 07:21 07:21 07:24 WBC 23.5 H RBC 3.71 L Hgb 10.2 L Hct 31.6 L MCV 85.2 MCH 27.5 MCHC 32.3 RDW 16.6 H Plt Count 97 L MPV 9.5 Immature Gran % (Auto) Cancelled Neut % (Auto) Cancelled Lymph % (Auto) Cancelled [place] % (Auto) Cancelled Eos % (Auto) Cancelled Baso % (Auto) Cancelled Lymph # (Auto) Cancelled [place] # (Auto) Cancelled Eos # (Auto) Cancelled Baso # (Auto) Cancelled Abs Immat Gran (auto) Cancelled Absolute Neuts (auto) Cancelled Absolute Nucleated RBC 0.020 H Nucleated RBC % (auto) 0.1 Neutrophils % (Manual) 72 Band Neutrophils % 11 H Lymphocytes % (Manual) 6 L Atypical Lymphs % (Man) Monocytes % (Manual) 5 Metamyelocytes % Myelocytes % 5 Promyelocytes % 1 Abs Neuts (Manual) 19.5 H Lymphocytes # (Manual) 1.4 Atyp Lymphs # (Manual) Monocytes # (Manual) 1.2 Metamyelocytes # Myelocytes # 1.2 Promyelocytes # 0.2 Smudge Cells Toxic Vacuolation Platelet Estimate DECREASED Plt Morphology Comment NORMAL RBC Morphology NOTED Polychromasia Hypochromasia 1+ (5-14) Macrocytosis Spherocytes 1+ (0-2) Target Cells 1+ (5-14) Smear Tech's Comments Smear Path Review PT INR APTT Fibrinogen D-Dimer High Sensitivty O2 Saturation ABG pH at Pt Temp ABG pCO2 at Pt Temp ABG pO2 at Pt Temp ABG HCO3 ABG Base Excess (Actual) VBG pH 7.37 VBG pCO2 63 VBG pO2 183 VBG HCO3 37 H VBG O2 Saturation 100.0 VBG Base Excess 10.0 Sodium 137 Potassium 5.1 Chloride 102 Carbon Dioxide 29 Anion Gap 11 L BUN 16 Creatinine 0.63 Estim Creat Clear Calc 199.5 Estimated GFR > 60 POC Glucose Random Glucose 125 H Lactic Acid Lactic Acid F/U @ 2Hr Lactic Acid F/U @ 4Hr Calcium 8.1 L Phosphorus 4.3 Magnesium 2.1 Iron TIBC % Saturation Unsat Iron Binding Ferritin Total Bilirubin Direct Bilirubin AST ALT Alkaline Phosphatase Lactate Dehydrogenase Troponin I High Sens B-Natriuretic Peptide Total Protein Albumin 1.8 L Vitamin B12 Folate Procalcitonin Urine Color Urine Appearance Urine pH Ur Specific [place] Urine Protein Urine Glucose (UA) Urine Ketones Urine Blood Urine Nitrite Ur Leukocyte Esterase Urine RBC Urine WBC Ur Squamous Epith Cells Urine Bacteria Hyaline Casts Granular Casts Pleural WBC Pleural RBC Pleural Neutrophils Pleural Monocytes Pleural Total Protein Pleural Albumin Pleural LDH Pleural Glucose Pleural Amylase Nasal Screen MRSA (PCR) Nasal S. aureus Screen Nasal MRSA/S.aureus Interp Vancomycin Trough Random Vancomycin Urine Opiates Screen Urine Fentanyl Screen Ur Barbiturates Screen Ur Phencyclidine Scrn Ur Amphetamines Screen U Benzodiazepines Scrn Urine Cocaine Screen U Marijuana (THC) Screen HIV 1&2 Ab/P24 Ag 4thGn Influenza Type A (PCR) Influenza Type B (PCR) Ur L.pneumophila Ag RSV RNA Qual (PCR) SARS-CoV-2 RNA (RT-PCR) Ur Strep pneumoniae Ag TB Test (T-Spot) Com TB Test Nil Control TB Test Panel A TB Test Panel B TB Test Positive Cntrl Ref Lab Test Result Blood Type Antibody Screen Crossmatch 12/02/22 12/02/22 12/03/22 08:52 20:52 06:27 WBC RBC Hgb Hct MCV MCH MCHC RDW Plt Count MPV Immature Gran % (Auto) Neut % (Auto) Lymph % (Auto) [place] % (Auto) Eos % (Auto) Baso % (Auto) Lymph # (Auto) [place] # (Auto) Eos # (Auto) Baso # (Auto) Abs Immat Gran (auto) Absolute Neuts (auto) Absolute Nucleated RBC Nucleated RBC % (auto) Neutrophils % (Manual) Band Neutrophils % Lymphocytes % (Manual) Atypical Lymphs % (Man) Monocytes % (Manual) Metamyelocytes % Myelocytes % Promyelocytes % Abs Neuts (Manual) Lymphocytes # (Manual) Atyp Lymphs # (Manual) Monocytes # (Manual) Metamyelocytes # Myelocytes # Promyelocytes # Smudge Cells Toxic Vacuolation Platelet Estimate Plt Morphology Comment RBC Morphology Polychromasia Hypochromasia Macrocytosis Spherocytes Target Cells Smear Tech's Comments Smear Path Review PT INR APTT Fibrinogen D-Dimer High Sensitivty O2 Saturation ABG pH at Pt Temp ABG pCO2 at Pt Temp ABG pO2 at Pt Temp ABG HCO3 ABG Base Excess (Actual) VBG pH VBG pCO2 VBG pO2 VBG HCO3 VBG O2 Saturation VBG Base Excess Sodium Potassium Chloride Carbon Dioxide Anion Gap BUN Creatinine 0.67 0.56 Estim Creat Clear Calc 187.5 224.4 Estimated GFR > 60 > 60 POC Glucose Random Glucose Lactic Acid Lactic Acid F/U @ 2Hr Lactic Acid F/U @ 4Hr Calcium Phosphorus Magnesium Iron TIBC % Saturation Unsat Iron Binding Ferritin Total Bilirubin Direct Bilirubin AST ALT Alkaline Phosphatase Lactate Dehydrogenase Troponin I High Sens B-Natriuretic Peptide Total Protein Albumin Vitamin B12 Folate Procalcitonin Urine Color Urine Appearance Urine pH Ur Specific [place] Urine Protein Urine Glucose (UA) Urine Ketones Urine Blood Urine Nitrite Ur Leukocyte Esterase Urine RBC Urine WBC Ur Squamous Epith Cells Urine Bacteria Hyaline Casts Granular Casts Pleural WBC Pleural RBC Pleural Neutrophils Pleural Monocytes Pleural Total Protein Pleural Albumin Pleural LDH Pleural Glucose Pleural Amylase Nasal Screen MRSA (PCR) Nasal S. aureus Screen Nasal MRSA/S.aureus Interp Vancomycin Trough 8.4 L Random Vancomycin Urine Opiates Screen Urine Fentanyl Screen Ur Barbiturates Screen Ur Phencyclidine Scrn Ur Amphetamines Screen U Benzodiazepines Scrn Urine Cocaine Screen U Marijuana (THC) Screen HIV 1&2 Ab/P24 Ag 4thGn Influenza Type A (PCR) Influenza Type B (PCR) Ur L.pneumophila Ag RSV RNA Qual (PCR) SARS-CoV-2 RNA (RT-PCR) Ur Strep pneumoniae Ag TB Test (T-Spot) Com TB Test Nil Control TB Test Panel A TB Test Panel B TB Test Positive Cntrl Ref Lab Test Result Blood Type Antibody Screen Crossmatch 12/03/22 12/03/22 12/04/22 06:27 21:01 06:49 WBC 19.7 H RBC 3.69 L Hgb 10.3 L Hct 31.5 L MCV 85.4 MCH 27.9 MCHC 32.7 RDW 16.6 H Plt Count 103 L MPV 10.9 Immature Gran % (Auto) Cancelled Neut % (Auto) Cancelled Lymph % (Auto) Cancelled [place] % (Auto) Cancelled Eos % (Auto) Cancelled Baso % (Auto) Cancelled Lymph # (Auto) Cancelled [place] # (Auto) Cancelled Eos # (Auto) Cancelled Baso # (Auto) Cancelled Abs Immat Gran (auto) Cancelled Absolute Neuts (auto) Cancelled Absolute Nucleated RBC 0.020 H Nucleated RBC % (auto) 0.1 Neutrophils % (Manual) 66 Band Neutrophils % 5 Lymphocytes % (Manual) 15 L Atypical Lymphs % (Man) Monocytes % (Manual) 8 Metamyelocytes % 2 Myelocytes % 4 Promyelocytes % Abs Neuts (Manual) 14.0 H Lymphocytes # (Manual) 3.0 Atyp Lymphs # (Manual) Monocytes # (Manual) 1.6 H Metamyelocytes # 0.4 Myelocytes # 0.8 Promyelocytes # Smudge Cells Toxic Vacuolation Platelet Estimate SLIGHTLY DECREASED Plt Morphology Comment NORMAL RBC Morphology NORMAL Polychromasia 1+ (0-2) Hypochromasia Macrocytosis Spherocytes Target Cells 1+ (5-14) Smear Tech's Comments Smear Path Review PT INR APTT Fibrinogen D-Dimer High Sensitivty O2 Saturation ABG pH at Pt Temp ABG pCO2 at Pt Temp ABG pO2 at Pt Temp ABG HCO3 ABG Base Excess (Actual) VBG pH VBG pCO2 VBG pO2 VBG HCO3 VBG O2 Saturation VBG Base Excess Sodium Potassium Chloride Carbon Dioxide Anion Gap BUN Creatinine 0.59 Estim Creat Clear Calc 213.0 Estimated GFR > 60 POC Glucose Random Glucose Lactic Acid Lactic Acid F/U @ 2Hr Lactic Acid F/U @ 4Hr Calcium Phosphorus Magnesium Iron TIBC % Saturation Unsat Iron Binding Ferritin Total Bilirubin Direct Bilirubin AST ALT Alkaline Phosphatase Lactate Dehydrogenase Troponin I High Sens B-Natriuretic Peptide Total Protein Albumin Vitamin B12 Folate Procalcitonin Urine Color Urine Appearance Urine pH Ur Specific [place] Urine Protein Urine Glucose (UA) Urine Ketones Urine Blood Urine Nitrite Ur Leukocyte Esterase Urine RBC Urine WBC Ur Squamous Epith Cells Urine Bacteria Hyaline Casts Granular Casts Pleural WBC Pleural RBC Pleural Neutrophils Pleural Monocytes Pleural Total Protein Pleural Albumin Pleural LDH Pleural Glucose Pleural Amylase Nasal Screen MRSA (PCR) Nasal S. aureus Screen Nasal MRSA/S.aureus Interp Vancomycin Trough Random Vancomycin 10.9 L Urine Opiates Screen Urine Fentanyl Screen Ur Barbiturates Screen Ur Phencyclidine Scrn Ur Amphetamines Screen U Benzodiazepines Scrn Urine Cocaine Screen U Marijuana (THC) Screen HIV 1&2 Ab/P24 Ag 4thGn Influenza Type A (PCR) Influenza Type B (PCR) Ur L.pneumophila Ag RSV RNA Qual (PCR) SARS-CoV-2 RNA (RT-PCR) Ur Strep pneumoniae Ag TB Test (T-Spot) Com TB Test Nil Control TB Test Panel A TB Test Panel B TB Test Positive Cntrl Ref Lab Test Result Blood Type Antibody Screen Crossmatch 12/04/22 12/04/22 12/05/22 06:49 21:17 07:00 WBC 15.7 H RBC 3.37 L Hgb 9.3 L Hct 28.2 L MCV 83.7 MCH 27.6 MCHC 33.0 RDW 16.0 Plt Count 102 L MPV 9.5 Immature Gran % (Auto) Cancelled Neut % (Auto) Cancelled Lymph % (Auto) Cancelled [place] % (Auto) Cancelled Eos % (Auto) Cancelled Baso % (Auto) Cancelled Lymph # (Auto) Cancelled [place] # (Auto) Cancelled Eos # (Auto) Cancelled Baso # (Auto) Cancelled Abs Immat Gran (auto) Cancelled Absolute Neuts (auto) Cancelled Absolute Nucleated RBC 0.000 Nucleated RBC % (auto) 0.0 Neutrophils % (Manual) 80 H Band Neutrophils % 4 Lymphocytes % (Manual) 5 L Atypical Lymphs % (Man) Monocytes % (Manual) 10 Metamyelocytes % Myelocytes % 1 Promyelocytes % Abs Neuts (Manual) 13.2 H Lymphocytes # (Manual) 0.8 L Atyp Lymphs # (Manual) Monocytes # (Manual) 1.6 H Metamyelocytes # Myelocytes # 0.2 Promyelocytes # Smudge Cells Toxic Vacuolation Platelet Estimate SLIGHTLY DECREASED Plt Morphology Comment NORM RBC Morphology NOTED Polychromasia Hypochromasia 1+ (5-14) Macrocytosis Spherocytes Target Cells 1+ (5-14) Smear Tech's Comments Smear Path Review PT INR APTT Fibrinogen D-Dimer High Sensitivty O2 Saturation ABG pH at Pt Temp ABG pCO2 at Pt Temp ABG pO2 at Pt Temp ABG HCO3 ABG Base Excess (Actual) VBG pH VBG pCO2 VBG pO2 VBG HCO3 VBG O2 Saturation VBG Base Excess Sodium Potassium Chloride Carbon Dioxide Anion Gap BUN Creatinine 0.57 Estim Creat Clear Calc 220.5 Estimated GFR > 60 POC Glucose Random Glucose Lactic Acid Lactic Acid F/U @ 2Hr Lactic Acid F/U @ 4Hr Calcium Phosphorus Magnesium Iron TIBC % Saturation Unsat Iron Binding Ferritin Total Bilirubin Direct Bilirubin AST ALT Alkaline Phosphatase Lactate Dehydrogenase Troponin I High Sens B-Natriuretic Peptide Total Protein Albumin Vitamin B12 Folate Procalcitonin Urine Color Urine Appearance Urine pH Ur Specific [place] Urine Protein Urine Glucose (UA) Urine Ketones Urine Blood Urine Nitrite Ur Leukocyte Esterase Urine RBC Urine WBC Ur Squamous Epith Cells Urine Bacteria Hyaline Casts Granular Casts Pleural WBC Pleural RBC Pleural Neutrophils Pleural Monocytes Pleural Total Protein Pleural Albumin Pleural LDH Pleural Glucose Pleural Amylase Nasal Screen MRSA (PCR) Nasal S. aureus Screen Nasal MRSA/S.aureus Interp Vancomycin Trough Random Vancomycin 11.9 L Urine Opiates Screen Urine Fentanyl Screen Ur Barbiturates Screen Ur Phencyclidine Scrn Ur Amphetamines Screen U Benzodiazepines Scrn Urine Cocaine Screen U Marijuana (THC) Screen HIV 1&2 Ab/P24 Ag 4thGn Influenza Type A (PCR) Influenza Type B (PCR) Ur L.pneumophila Ag RSV RNA Qual (PCR) SARS-CoV-2 RNA (RT-PCR) Ur Strep pneumoniae Ag TB Test (T-Spot) Com TB Test Nil Control TB Test Panel A TB Test Panel B TB Test Positive Cntrl Ref Lab Test Result Blood Type Antibody Screen Crossmatch 12/05/22 12/05/22 12/05/22 07:00 08:49 21:08 WBC 17.2 H RBC 3.32 L Hgb 9.1 L Hct 28.0 L MCV 84.3 MCH 27.4 MCHC 32.5 RDW 16.2 H Plt Count 142 L D MPV 10.2 Immature Gran % (Auto) Neut % (Auto) Lymph % (Auto) [place] % (Auto) Eos % (Auto) Baso % (Auto) Lymph # (Auto) [place] # (Auto) Eos # (Auto) Baso # (Auto) Abs Immat Gran (auto) Absolute Neuts (auto) Absolute Nucleated RBC 0.020 H Nucleated RBC % (auto) 0.1 Neutrophils % (Manual) Band Neutrophils % Lymphocytes % (Manual) Atypical Lymphs % (Man) Monocytes % (Manual) Metamyelocytes % Myelocytes % Promyelocytes % Abs Neuts (Manual) Lymphocytes # (Manual) Atyp Lymphs # (Manual) Monocytes # (Manual) Metamyelocytes # Myelocytes # Promyelocytes # Smudge Cells Toxic Vacuolation Platelet Estimate Plt Morphology Comment RBC Morphology Polychromasia Hypochromasia Macrocytosis Spherocytes Target Cells Smear Tech's Comments Smear Path Review PT 17.7 H INR 1.5 H APTT Fibrinogen D-Dimer High Sensitivty O2 Saturation ABG pH at Pt Temp ABG pCO2 at Pt Temp ABG pO2 at Pt Temp ABG HCO3 ABG Base Excess (Actual) VBG pH VBG pCO2 VBG pO2 VBG HCO3 VBG O2 Saturation VBG Base Excess Sodium Potassium Chloride Carbon Dioxide Anion Gap BUN Creatinine Estim Creat Clear Calc Estimated GFR POC Glucose Random Glucose Lactic Acid Lactic Acid F/U @ 2Hr Lactic Acid F/U @ 4Hr Calcium Phosphorus Magnesium Iron TIBC % Saturation Unsat Iron Binding Ferritin Total Bilirubin Direct Bilirubin AST ALT Alkaline Phosphatase Lactate Dehydrogenase Troponin I High Sens B-Natriuretic Peptide Total Protein Albumin Vitamin B12 Folate Procalcitonin Urine Color Urine Appearance Urine pH Ur Specific [place] Urine Protein Urine Glucose (UA) Urine Ketones Urine Blood Urine Nitrite Ur Leukocyte Esterase Urine RBC Urine WBC Ur Squamous Epith Cells Urine Bacteria Hyaline Casts Granular Casts Pleural WBC Pleural RBC Pleural Neutrophils Pleural Monocytes Pleural Total Protein Pleural Albumin Pleural LDH Pleural Glucose Pleural Amylase Nasal Screen MRSA (PCR) Nasal S. aureus Screen Nasal MRSA/S.aureus Interp Vancomycin Trough 2.3 L Random Vancomycin Urine Opiates Screen Urine Fentanyl Screen Ur Barbiturates Screen Ur Phencyclidine Scrn Ur Amphetamines Screen U Benzodiazepines Scrn Urine Cocaine Screen U Marijuana (THC) Screen HIV 1&2 Ab/P24 Ag 4thGn Influenza Type A (PCR) Influenza Type B (PCR) Ur L.pneumophila Ag RSV RNA Qual (PCR) SARS-CoV-2 RNA (RT-PCR) Ur Strep pneumoniae Ag TB Test (T-Spot) Com TB Test Nil Control TB Test Panel A TB Test Panel B TB Test Positive Cntrl Ref Lab Test Result Blood Type Antibody Screen Crossmatch 12/06/22 12/06/22 12/07/22 07:33 21:09 07:01 WBC RBC Hgb Hct MCV MCH MCHC RDW Plt Count MPV Immature Gran % (Auto) Neut % (Auto) Lymph % (Auto) [place] % (Auto) Eos % (Auto) Baso % (Auto) Lymph # (Auto) [place] # (Auto) Eos # (Auto) Baso # (Auto) Abs Immat Gran (auto) Absolute Neuts (auto) Absolute Nucleated RBC Nucleated RBC % (auto) Neutrophils % (Manual) Band Neutrophils % Lymphocytes % (Manual) Atypical Lymphs % (Man) Monocytes % (Manual) Metamyelocytes % Myelocytes % Promyelocytes % Abs Neuts (Manual) Lymphocytes # (Manual) Atyp Lymphs # (Manual) Monocytes # (Manual) Metamyelocytes # Myelocytes # Promyelocytes # Smudge Cells Toxic Vacuolation Platelet Estimate Plt Morphology Comment RBC Morphology Polychromasia Hypochromasia Macrocytosis Spherocytes Target Cells Smear Tech's Comments Smear Path Review PT INR APTT Fibrinogen D-Dimer High Sensitivty O2 Saturation ABG pH at Pt Temp ABG pCO2 at Pt Temp ABG pO2 at Pt Temp ABG HCO3 ABG Base Excess (Actual) VBG pH VBG pCO2 VBG pO2 VBG HCO3 VBG O2 Saturation VBG Base Excess Sodium Potassium Chloride Carbon Dioxide Anion Gap BUN Creatinine 0.58 0.58 Estim Creat Clear Calc 216.6 216.6 Estimated GFR > 60 > 60 POC Glucose Random Glucose Lactic Acid Lactic Acid F/U @ 2Hr Lactic Acid F/U @ 4Hr Calcium Phosphorus Magnesium Iron TIBC % Saturation Unsat Iron Binding Ferritin Total Bilirubin Direct Bilirubin AST ALT Alkaline Phosphatase Lactate Dehydrogenase Troponin I High Sens B-Natriuretic Peptide Total Protein Albumin Vitamin B12 Folate Procalcitonin Urine Color Urine Appearance Urine pH Ur Specific [place] Urine Protein Urine Glucose (UA) Urine Ketones Urine Blood Urine Nitrite Ur Leukocyte Esterase Urine RBC Urine WBC Ur Squamous Epith Cells Urine Bacteria Hyaline Casts Granular Casts Pleural WBC Pleural RBC Pleural Neutrophils Pleural Monocytes Pleural Total Protein Pleural Albumin Pleural LDH Pleural Glucose Pleural Amylase Nasal Screen MRSA (PCR) Nasal S. aureus Screen Nasal MRSA/S.aureus Interp Vancomycin Trough 4.6 L Random Vancomycin Urine Opiates Screen Urine Fentanyl Screen Ur Barbiturates Screen Ur Phencyclidine Scrn Ur Amphetamines Screen U Benzodiazepines Scrn Urine Cocaine Screen U Marijuana (THC) Screen HIV 1&2 Ab/P24 Ag 4thGn Influenza Type A (PCR) Influenza Type B (PCR) Ur L.pneumophila Ag RSV RNA Qual (PCR) SARS-CoV-2 RNA (RT-PCR) Ur Strep pneumoniae Ag TB Test (T-Spot) Com TB Test Nil Control TB Test Panel A TB Test Panel B TB Test Positive Cntrl Ref Lab Test Result Blood Type Antibody Screen Crossmatch 12/07/22 12/08/22 12/08/22 07:01 07:40 07:40 WBC 13.9 H RBC 3.08 L Hgb 8.4 L 7.7 L Hct 25.8 L 23.3 L MCV 83.8 MCH 27.3 MCHC 32.6 RDW 16.3 H Plt Count 256 D MPV 10.1 Immature Gran % (Auto) Neut % (Auto) Lymph % (Auto) [place] % (Auto) Eos % (Auto) Baso % (Auto) Lymph # (Auto) [place] # (Auto) Eos # (Auto) Baso # (Auto) Abs Immat Gran (auto) Absolute Neuts (auto) Absolute Nucleated RBC 0.000 Nucleated RBC % (auto) 0.0 Neutrophils % (Manual) Band Neutrophils % Lymphocytes % (Manual) Atypical Lymphs % (Man) Monocytes % (Manual) Metamyelocytes % Myelocytes % Promyelocytes % Abs Neuts (Manual) Lymphocytes # (Manual) Atyp Lymphs # (Manual) Monocytes # (Manual) Metamyelocytes # Myelocytes # Promyelocytes # Smudge Cells Toxic Vacuolation Platelet Estimate Plt Morphology Comment RBC Morphology Polychromasia Hypochromasia Macrocytosis Spherocytes Target Cells Smear Tech's Comments Smear Path Review PT INR APTT Fibrinogen D-Dimer High Sensitivty O2 Saturation ABG pH at Pt Temp ABG pCO2 at Pt Temp ABG pO2 at Pt Temp ABG HCO3 ABG Base Excess (Actual) VBG pH VBG pCO2 VBG pO2 VBG HCO3 VBG O2 Saturation VBG Base Excess Sodium Potassium Chloride Carbon Dioxide Anion Gap BUN Creatinine 0.64 Estim Creat Clear Calc 196.3 Estimated GFR > 60 POC Glucose Random Glucose Lactic Acid Lactic Acid F/U @ 2Hr Lactic Acid F/U @ 4Hr Calcium Phosphorus Magnesium Iron 17 L TIBC 116 L % Saturation 15 Unsat Iron Binding 99 Ferritin 414 H Total Bilirubin Direct Bilirubin AST ALT Alkaline Phosphatase Lactate Dehydrogenase Troponin I High Sens B-Natriuretic Peptide Total Protein Albumin Vitamin B12 1326 H Folate 6.7 Procalcitonin Urine Color Urine Appearance Urine pH Ur Specific [place] Urine Protein Urine Glucose (UA) Urine Ketones Urine Blood Urine Nitrite Ur Leukocyte Esterase Urine RBC Urine WBC Ur Squamous Epith Cells Urine Bacteria Hyaline Casts Granular Casts Pleural WBC Pleural RBC Pleural Neutrophils Pleural Monocytes Pleural Total Protein Pleural Albumin Pleural LDH Pleural Glucose Pleural Amylase Nasal Screen MRSA (PCR) Nasal S. aureus Screen Nasal MRSA/S.aureus Interp Vancomycin Trough Random Vancomycin Urine Opiates Screen Urine Fentanyl Screen Ur Barbiturates Screen Ur Phencyclidine Scrn Ur Amphetamines Screen U Benzodiazepines Scrn Urine Cocaine Screen U Marijuana (THC) Screen HIV 1&2 Ab/P24 Ag 4thGn Influenza Type A (PCR) Influenza Type B (PCR) Ur L.pneumophila Ag RSV RNA Qual (PCR) SARS-CoV-2 RNA (RT-PCR) Ur Strep pneumoniae Ag TB Test (T-Spot) Com TB Test Nil Control TB Test Panel A TB Test Panel B TB Test Positive Cntrl Ref Lab Test Result Blood Type Antibody Screen Crossmatch 12/08/22 12/08/22 12/09/22 14:54 20:00 09:56 WBC 10.1 RBC 2.70 L Hgb 7.8 L 7.5 L Hct 23.3 L 23.4 L MCV 86.7 MCH 27.8 MCHC 32.1 RDW 16.5 H Plt Count 340 D MPV 9.4 Immature Gran % (Auto) 1.7 H Neut % (Auto) 64.6 Lymph % (Auto) 16.9 L [place] % (Auto) 16.5 H Eos % (Auto) 0.1 Baso % (Auto) 0.2 Lymph # (Auto) 1.7 [place] # (Auto) 1.7 H Eos # (Auto) 0.0 Baso # (Auto) 0.0 Abs Immat Gran (auto) 0.17 H Absolute Neuts (auto) 6.5 Absolute Nucleated RBC 0.000 Nucleated RBC % (auto) 0.0 Neutrophils % (Manual) Band Neutrophils % Lymphocytes % (Manual) Atypical Lymphs % (Man) Monocytes % (Manual) Metamyelocytes % Myelocytes % Promyelocytes % Abs Neuts (Manual) Lymphocytes # (Manual) Atyp Lymphs # (Manual) Monocytes # (Manual) Metamyelocytes # Myelocytes # Promyelocytes # Smudge Cells Toxic Vacuolation Platelet Estimate Plt Morphology Comment RBC Morphology Polychromasia Hypochromasia Macrocytosis Spherocytes Target Cells Smear Tech's Comments VERIFIED Smear Path Review PT INR APTT Fibrinogen D-Dimer High Sensitivty O2 Saturation ABG pH at Pt Temp ABG pCO2 at Pt Temp ABG pO2 at Pt Temp ABG HCO3 ABG Base Excess (Actual) VBG pH VBG pCO2 VBG pO2 VBG HCO3 VBG O2 Saturation VBG Base Excess Sodium Potassium Chloride Carbon Dioxide Anion Gap BUN Creatinine Estim Creat Clear Calc Estimated GFR POC Glucose Random Glucose Lactic Acid Lactic Acid F/U @ 2Hr Lactic Acid F/U @ 4Hr Calcium Phosphorus Magnesium Iron TIBC % Saturation Unsat Iron Binding Ferritin Total Bilirubin Direct Bilirubin AST ALT Alkaline Phosphatase Lactate Dehydrogenase Troponin I High Sens B-Natriuretic Peptide Total Protein Albumin Vitamin B12 Folate Procalcitonin Urine Color Urine Appearance Urine pH Ur Specific [place] Urine Protein Urine Glucose (UA) Urine Ketones Urine Blood Urine Nitrite Ur Leukocyte Esterase Urine RBC Urine WBC Ur Squamous Epith Cells Urine Bacteria Hyaline Casts Granular Casts Pleural WBC Pleural RBC Pleural Neutrophils Pleural Monocytes Pleural Total Protein Pleural Albumin Pleural LDH Pleural Glucose Pleural Amylase Nasal Screen MRSA (PCR) Nasal S. aureus Screen Nasal MRSA/S.aureus Interp Vancomycin Trough Random Vancomycin Urine Opiates Screen Urine Fentanyl Screen Ur Barbiturates Screen Ur Phencyclidine Scrn Ur Amphetamines Screen U Benzodiazepines Scrn Urine Cocaine Screen U Marijuana (THC) Screen HIV 1&2 Ab/P24 Ag 4thGn Influenza Type A (PCR) Influenza Type B (PCR) Ur L.pneumophila Ag RSV RNA Qual (PCR) SARS-CoV-2 RNA (RT-PCR) Ur Strep pneumoniae Ag TB Test (T-Spot) Com TB Test Nil Control TB Test Panel A TB Test Panel B TB Test Positive Cntrl Ref Lab Test Result Blood Type A Negative Antibody Screen NEGATIVE Crossmatch 12/09/22 12/09/22 12/10/22 09:56 11:28 06:01 WBC RBC Hgb Hct MCV MCH MCHC RDW Plt Count MPV Immature Gran % (Auto) Neut % (Auto) Lymph % (Auto) [place] % (Auto) Eos % (Auto) Baso % (Auto) Lymph # (Auto) [place] # (Auto) Eos # (Auto) Baso # (Auto) Abs Immat Gran (auto) Absolute Neuts (auto) Absolute Nucleated RBC Nucleated RBC % (auto) Neutrophils % (Manual) Band Neutrophils % Lymphocytes % (Manual) Atypical Lymphs % (Man) Monocytes % (Manual) Metamyelocytes % Myelocytes % Promyelocytes % Abs Neuts (Manual) Lymphocytes # (Manual) Atyp Lymphs # (Manual) Monocytes # (Manual) Metamyelocytes # Myelocytes # Promyelocytes # Smudge Cells Toxic Vacuolation Platelet Estimate Plt Morphology Comment RBC Morphology Polychromasia Hypochromasia Macrocytosis Spherocytes Target Cells Smear Tech's Comments Smear Path Review PT 22.6 H 14.7 H INR 1.9 H 1.3 H APTT Fibrinogen D-Dimer High Sensitivty O2 Saturation ABG pH at Pt Temp ABG pCO2 at Pt Temp ABG pO2 at Pt Temp ABG HCO3 ABG Base Excess (Actual) VBG pH VBG pCO2 VBG pO2 VBG HCO3 VBG O2 Saturation VBG Base Excess Sodium Potassium Chloride Carbon Dioxide Anion Gap BUN Creatinine Estim Creat Clear Calc Estimated GFR POC Glucose Random Glucose Lactic Acid Lactic Acid F/U @ 2Hr Lactic Acid F/U @ 4Hr Calcium Phosphorus Magnesium Iron TIBC % Saturation Unsat Iron Binding Ferritin Total Bilirubin 0.4 Direct Bilirubin AST 29 ALT 11 Alkaline Phosphatase 49 Lactate Dehydrogenase Troponin I High Sens B-Natriuretic Peptide Total Protein 7.3 Albumin 1.6 L Vitamin B12 Folate Procalcitonin Urine Color Urine Appearance Urine pH Ur Specific [place] Urine Protein Urine Glucose (UA) Urine Ketones Urine Blood Urine Nitrite Ur Leukocyte Esterase Urine RBC Urine WBC Ur Squamous Epith Cells Urine Bacteria Hyaline Casts Granular Casts Pleural WBC Pleural RBC Pleural Neutrophils Pleural Monocytes Pleural Total Protein Pleural Albumin Pleural LDH Pleural Glucose Pleural Amylase Nasal Screen MRSA (PCR) Nasal S. aureus Screen Nasal MRSA/S.aureus Interp Vancomycin Trough Random Vancomycin Urine Opiates Screen Urine Fentanyl Screen Ur Barbiturates Screen Ur Phencyclidine Scrn Ur Amphetamines Screen U Benzodiazepines Scrn Urine Cocaine Screen U Marijuana (THC) Screen HIV 1&2 Ab/P24 Ag 4thGn Influenza Type A (PCR) Influenza Type B (PCR) Ur L.pneumophila Ag RSV RNA Qual (PCR) SARS-CoV-2 RNA (RT-PCR) Ur Strep pneumoniae Ag TB Test (T-Spot) Com TB Test Nil Control TB Test Panel A TB Test Panel B TB Test Positive Cntrl Ref Lab Test Result Blood Type Antibody Screen Crossmatch 12/10/22 12/10/22 12/10/22 06:01 06:01 08:16 WBC RBC Hgb 7.4 L Hct 23.2 L MCV MCH MCHC RDW Plt Count MPV Immature Gran % (Auto) Neut % (Auto) Lymph % (Auto) [place] % (Auto) Eos % (Auto) Baso % (Auto) Lymph # (Auto) [place] # (Auto) Eos # (Auto) Baso # (Auto) Abs Immat Gran (auto) Absolute Neuts (auto) Absolute Nucleated RBC Nucleated RBC % (auto) Neutrophils % (Manual) Band Neutrophils % Lymphocytes % (Manual) Atypical Lymphs % (Man) Monocytes % (Manual) Metamyelocytes % Myelocytes % Promyelocytes % Abs Neuts (Manual) Lymphocytes # (Manual) Atyp Lymphs # (Manual) Monocytes # (Manual) Metamyelocytes # Myelocytes # Promyelocytes # Smudge Cells Toxic Vacuolation Platelet Estimate Plt Morphology Comment RBC Morphology Polychromasia Hypochromasia Macrocytosis Spherocytes Target Cells Smear Tech's Comments Smear Path Review PT 15.3 H INR 1.3 H APTT 30.4 Fibrinogen 624 D-Dimer High Sensitivty O2 Saturation ABG pH at Pt Temp ABG pCO2 at Pt Temp ABG pO2 at Pt Temp ABG HCO3 ABG Base Excess (Actual) VBG pH VBG pCO2 VBG pO2 VBG HCO3 VBG O2 Saturation VBG Base Excess Sodium Potassium Chloride Carbon Dioxide Anion Gap BUN Creatinine Estim Creat Clear Calc Estimated GFR POC Glucose Random Glucose Lactic Acid Lactic Acid F/U @ 2Hr Lactic Acid F/U @ 4Hr Calcium Phosphorus Magnesium Iron TIBC % Saturation Unsat Iron Binding Ferritin Total Bilirubin 0.3 Direct Bilirubin 0.2 AST 25 ALT 11 Alkaline Phosphatase 47 Lactate Dehydrogenase Troponin I High Sens B-Natriuretic Peptide Total Protein 7.3 Albumin 1.6 L Vitamin B12 Folate Procalcitonin Urine Color Urine Appearance Urine pH Ur Specific [place] Urine Protein Urine Glucose (UA) Urine Ketones Urine Blood Urine Nitrite Ur Leukocyte Esterase Urine RBC Urine WBC Ur Squamous Epith Cells Urine Bacteria Hyaline Casts Granular Casts Pleural WBC Pleural RBC Pleural Neutrophils Pleural Monocytes Pleural Total Protein Pleural Albumin Pleural LDH Pleural Glucose Pleural Amylase Nasal Screen MRSA (PCR) Nasal S. aureus Screen Nasal MRSA/S.aureus Interp Vancomycin Trough Random Vancomycin Urine Opiates Screen Urine Fentanyl Screen Ur Barbiturates Screen Ur Phencyclidine Scrn Ur Amphetamines Screen U Benzodiazepines Scrn Urine Cocaine Screen U Marijuana (THC) Screen HIV 1&2 Ab/P24 Ag 4thGn Influenza Type A (PCR) Influenza Type B (PCR) Ur L.pneumophila Ag RSV RNA Qual (PCR) SARS-CoV-2 RNA (RT-PCR) Ur Strep pneumoniae Ag TB Test (T-Spot) Com TB Test Nil Control TB Test Panel A TB Test Panel B TB Test Positive Cntrl Ref Lab Test Result Blood Type Antibody Screen Crossmatch 12/11/22 12/11/22 12/11/22 06:13 06:13 06:13 WBC RBC Hgb 7.7 L Hct 23.9 L MCV MCH MCHC RDW Plt Count MPV Immature Gran % (Auto) Neut % (Auto) Lymph % (Auto) [place] % (Auto) Eos % (Auto) Baso % (Auto) Lymph # (Auto) [place] # (Auto) Eos # (Auto) Baso # (Auto) Abs Immat Gran (auto) Absolute Neuts (auto) Absolute Nucleated RBC Nucleated RBC % (auto) Neutrophils % (Manual) Band Neutrophils % Lymphocytes % (Manual) Atypical Lymphs % (Man) Monocytes % (Manual) Metamyelocytes % Myelocytes % Promyelocytes % Abs Neuts (Manual) Lymphocytes # (Manual) Atyp Lymphs # (Manual) Monocytes # (Manual) Metamyelocytes # Myelocytes # Promyelocytes # Smudge Cells Toxic Vacuolation Platelet Estimate Plt Morphology Comment RBC Morphology Polychromasia Hypochromasia Macrocytosis Spherocytes Target Cells Smear Tech's Comments Smear Path Review PT 14.3 H INR 1.2 H APTT Fibrinogen D-Dimer High Sensitivty 5296 O2 Saturation ABG pH at Pt Temp ABG pCO2 at Pt Temp ABG pO2 at Pt Temp ABG HCO3 ABG Base Excess (Actual) VBG pH VBG pCO2 VBG pO2 VBG HCO3 VBG O2 Saturation VBG Base Excess Sodium Potassium Chloride Carbon Dioxide Anion Gap BUN Creatinine Estim Creat Clear Calc Estimated GFR POC Glucose Random Glucose Lactic Acid Lactic Acid F/U @ 2Hr Lactic Acid F/U @ 4Hr Calcium Phosphorus Magnesium Iron TIBC % Saturation Unsat Iron Binding Ferritin Total Bilirubin Direct Bilirubin AST ALT Alkaline Phosphatase Lactate Dehydrogenase Troponin I High Sens B-Natriuretic Peptide Total Protein Albumin Vitamin B12 Folate Procalcitonin Urine Color Urine Appearance Urine pH Ur Specific [place] Urine Protein Urine Glucose (UA) Urine Ketones Urine Blood Urine Nitrite Ur Leukocyte Esterase Urine RBC Urine WBC Ur Squamous Epith Cells Urine Bacteria Hyaline Casts Granular Casts Pleural WBC Pleural RBC Pleural Neutrophils Pleural Monocytes Pleural Total Protein Pleural Albumin Pleural LDH Pleural Glucose Pleural Amylase Nasal Screen MRSA (PCR) Nasal S. aureus Screen Nasal MRSA/S.aureus Interp Vancomycin Trough Random Vancomycin Urine Opiates Screen Urine Fentanyl Screen Ur Barbiturates Screen Ur Phencyclidine Scrn Ur Amphetamines Screen U Benzodiazepines Scrn Urine Cocaine Screen U Marijuana (THC) Screen HIV 1&2 Ab/P24 Ag 4thGn Influenza Type A (PCR) Influenza Type B (PCR) Ur L.pneumophila Ag RSV RNA Qual (PCR) SARS-CoV-2 RNA (RT-PCR) Ur Strep pneumoniae Ag TB Test (T-Spot) Com TB Test Nil Control TB Test Panel A TB Test Panel B TB Test Positive Cntrl Ref Lab Test Result Blood Type Antibody Screen Crossmatch 12/11/22 12/12/22 12/12/22 18:13 06:21 06:21 WBC 10.2 RBC 2.53 L Hgb 7.0 L* Hct 22.8 L 21.8 L MCV 86.2 MCH 27.7 MCHC 32.1 RDW 16.7 H Plt Count 449 H D MPV 9.1 L Immature Gran % (Auto) 1.0 H Neut % (Auto) 56.4 Lymph % (Auto) 25.2 [place] % (Auto) 16.9 H Eos % (Auto) 0.2 Baso % (Auto) 0.3 Lymph # (Auto) 2.6 [place] # (Auto) 1.7 H Eos # (Auto) 0.0 Baso # (Auto) 0.0 Abs Immat Gran (auto) 0.10 H Absolute Neuts (auto) 5.7 Absolute Nucleated RBC 0.000 Nucleated RBC % (auto) 0.0 Neutrophils % (Manual) Band Neutrophils % Lymphocytes % (Manual) Atypical Lymphs % (Man) Monocytes % (Manual) Metamyelocytes % Myelocytes % Promyelocytes % Abs Neuts (Manual) Lymphocytes # (Manual) Atyp Lymphs # (Manual) Monocytes # (Manual) Metamyelocytes # Myelocytes # Promyelocytes # Smudge Cells Toxic Vacuolation Platelet Estimate Plt Morphology Comment RBC Morphology Polychromasia Hypochromasia Macrocytosis Spherocytes Target Cells Smear Tech's Comments VERIFIED Smear Path Review PT 15.5 H INR 1.3 H APTT Fibrinogen D-Dimer High Sensitivty O2 Saturation ABG pH at Pt Temp ABG pCO2 at Pt Temp ABG pO2 at Pt Temp ABG HCO3 ABG Base Excess (Actual) VBG pH VBG pCO2 VBG pO2 VBG HCO3 VBG O2 Saturation VBG Base Excess Sodium Potassium Chloride Carbon Dioxide Anion Gap BUN Creatinine Estim Creat Clear Calc Estimated GFR POC Glucose Random Glucose Lactic Acid Lactic Acid F/U @ 2Hr Lactic Acid F/U @ 4Hr Calcium Phosphorus Magnesium Iron TIBC % Saturation Unsat Iron Binding Ferritin Total Bilirubin Direct Bilirubin AST ALT Alkaline Phosphatase Lactate Dehydrogenase Troponin I High Sens B-Natriuretic Peptide Total Protein Albumin Vitamin B12 Folate Procalcitonin Urine Color Urine Appearance Urine pH Ur Specific [place] Urine Protein Urine Glucose (UA) Urine Ketones Urine Blood Urine Nitrite Ur Leukocyte Esterase Urine RBC Urine WBC Ur Squamous Epith Cells Urine Bacteria Hyaline Casts Granular Casts Pleural WBC Pleural RBC Pleural Neutrophils Pleural Monocytes Pleural Total Protein Pleural Albumin Pleural LDH Pleural Glucose Pleural Amylase Nasal Screen MRSA (PCR) Nasal S. aureus Screen Nasal MRSA/S.aureus Interp Vancomycin Trough Random Vancomycin Urine Opiates Screen Urine Fentanyl Screen Ur Barbiturates Screen Ur Phencyclidine Scrn Ur Amphetamines Screen U Benzodiazepines Scrn Urine Cocaine Screen U Marijuana (THC) Screen HIV 1&2 Ab/P24 Ag 4thGn Influenza Type A (PCR) Influenza Type B (PCR) Ur L.pneumophila Ag RSV RNA Qual (PCR) SARS-CoV-2 RNA (RT-PCR) Ur Strep pneumoniae Ag TB Test (T-Spot) Com TB Test Nil Control TB Test Panel A TB Test Panel B TB Test Positive Cntrl Ref Lab Test Result Blood Type Antibody Screen Crossmatch 12/12/22 12/12/22 12/12/22 06:21 08:57 08:57 WBC RBC Hgb 7.2 L Hct 22.7 L MCV MCH MCHC RDW Plt Count MPV Immature Gran % (Auto) Neut % (Auto) Lymph % (Auto) [place] % (Auto) Eos % (Auto) Baso % (Auto) Lymph # (Auto) [place] # (Auto) Eos # (Auto) Baso # (Auto) Abs Immat Gran (auto) Absolute Neuts (auto) Absolute Nucleated RBC Nucleated RBC % (auto) Neutrophils % (Manual) Band Neutrophils % Lymphocytes % (Manual) Atypical Lymphs % (Man) Monocytes % (Manual) Metamyelocytes % Myelocytes % Promyelocytes % Abs Neuts (Manual) Lymphocytes # (Manual) Atyp Lymphs # (Manual) Monocytes # (Manual) Metamyelocytes # Myelocytes # Promyelocytes # Smudge Cells Toxic Vacuolation Platelet Estimate Plt Morphology Comment RBC Morphology Polychromasia Hypochromasia Macrocytosis Spherocytes Target Cells Smear Tech's Comments Smear Path Review PT INR APTT 30.3 Fibrinogen D-Dimer High Sensitivty O2 Saturation ABG pH at Pt Temp ABG pCO2 at Pt Temp ABG pO2 at Pt Temp ABG HCO3 ABG Base Excess (Actual) VBG pH VBG pCO2 VBG pO2 VBG HCO3 VBG O2 Saturation VBG Base Excess Sodium Potassium Chloride Carbon Dioxide Anion Gap BUN Creatinine Estim Creat Clear Calc Estimated GFR POC Glucose Random Glucose Lactic Acid Lactic Acid F/U @ 2Hr Lactic Acid F/U @ 4Hr Calcium Phosphorus Magnesium Iron TIBC % Saturation Unsat Iron Binding Ferritin Total Bilirubin Direct Bilirubin AST ALT Alkaline Phosphatase Lactate Dehydrogenase Troponin I High Sens B-Natriuretic Peptide Total Protein Albumin Vitamin B12 Folate Procalcitonin Urine Color Urine Appearance Urine pH Ur Specific [place] Urine Protein Urine Glucose (UA) Urine Ketones Urine Blood Urine Nitrite Ur Leukocyte Esterase Urine RBC Urine WBC Ur Squamous Epith Cells Urine Bacteria Hyaline Casts Granular Casts Pleural WBC Pleural RBC Pleural Neutrophils Pleural Monocytes Pleural Total Protein Pleural Albumin Pleural LDH Pleural Glucose Pleural Amylase Nasal Screen MRSA (PCR) Nasal S. aureus Screen Nasal MRSA/S.aureus Interp Vancomycin Trough Random Vancomycin Urine Opiates Screen Urine Fentanyl Screen Ur Barbiturates Screen Ur Phencyclidine Scrn Ur Amphetamines Screen U Benzodiazepines Scrn Urine Cocaine Screen U Marijuana (THC) Screen HIV 1&2 Ab/P24 Ag 4thGn Influenza Type A (PCR) Influenza Type B (PCR) Ur L.pneumophila Ag RSV RNA Qual (PCR) SARS-CoV-2 RNA (RT-PCR) Ur Strep pneumoniae Ag TB Test (T-Spot) Com TB Test Nil Control TB Test Panel A TB Test Panel B TB Test Positive Cntrl Ref Lab Test Result Blood Type A Negative Antibody Screen NEGATIVE Crossmatch See Detail 12/13/22 12/13/22 12/14/22 08:34 08:34 07:25 WBC 8.0 RBC 2.94 L Hgb 8.2 L 8.7 L Hct 25.3 L 26.5 L MCV 86.1 MCH 27.9 MCHC 32.4 RDW 16.4 H Plt Count 428 H MPV 9.0 L Immature Gran % (Auto) Neut % (Auto) Lymph % (Auto) [place] % (Auto) Eos % (Auto) Baso % (Auto) Lymph # (Auto) [place] # (Auto) Eos # (Auto) Baso # (Auto) Abs Immat Gran (auto) Absolute Neuts (auto) Absolute Nucleated RBC 0.000 Nucleated RBC % (auto) 0.0 Neutrophils % (Manual) Band Neutrophils % Lymphocytes % (Manual) Atypical Lymphs % (Man) Monocytes % (Manual) Metamyelocytes % Myelocytes % Promyelocytes % Abs Neuts (Manual) Lymphocytes # (Manual) Atyp Lymphs # (Manual) Monocytes # (Manual) Metamyelocytes # Myelocytes # Promyelocytes # Smudge Cells Toxic Vacuolation Platelet Estimate Plt Morphology Comment RBC Morphology Polychromasia Hypochromasia Macrocytosis Spherocytes Target Cells Smear Tech's Comments Smear Path Review PT INR APTT Fibrinogen D-Dimer High Sensitivty O2 Saturation ABG pH at Pt Temp ABG pCO2 at Pt Temp ABG pO2 at Pt Temp ABG HCO3 ABG Base Excess (Actual) VBG pH VBG pCO2 VBG pO2 VBG HCO3 VBG O2 Saturation VBG Base Excess Sodium 136 Potassium 4.1 Chloride 105 Carbon Dioxide 24 Anion Gap 11 L BUN 9 Creatinine 0.61 Estim Creat Clear Calc 206.0 Estimated GFR > 60 POC Glucose Random Glucose 97 Lactic Acid Lactic Acid F/U @ 2Hr Lactic Acid F/U @ 4Hr Calcium 7.9 L Phosphorus Magnesium Iron TIBC % Saturation Unsat Iron Binding Ferritin Total Bilirubin Direct Bilirubin AST ALT Alkaline Phosphatase Lactate Dehydrogenase Troponin I High Sens B-Natriuretic Peptide Total Protein Albumin Vitamin B12 Folate Procalcitonin Urine Color Urine Appearance Urine pH Ur Specific [place] Urine Protein Urine Glucose (UA) Urine Ketones Urine Blood Urine Nitrite Ur Leukocyte Esterase Urine RBC Urine WBC Ur Squamous Epith Cells Urine Bacteria Hyaline Casts Granular Casts Pleural WBC Pleural RBC Pleural Neutrophils Pleural Monocytes Pleural Total Protein Pleural Albumin Pleural LDH Pleural Glucose Pleural Amylase Nasal Screen MRSA (PCR) Nasal S. aureus Screen Nasal MRSA/S.aureus Interp Vancomycin Trough Random Vancomycin Urine Opiates Screen Urine Fentanyl Screen Ur Barbiturates Screen Ur Phencyclidine Scrn Ur Amphetamines Screen U Benzodiazepines Scrn Urine Cocaine Screen U Marijuana (THC) Screen HIV 1&2 Ab/P24 Ag 4thGn Influenza Type A (PCR) Influenza Type B (PCR) Ur L.pneumophila Ag RSV RNA Qual (PCR) SARS-CoV-2 RNA (RT-PCR) Ur Strep pneumoniae Ag TB Test (T-Spot) Com TB Test Nil Control TB Test Panel A TB Test Panel B TB Test Positive Cntrl Ref Lab Test Result Blood Type Antibody Screen Crossmatch 12/15/22 12/15/22 12/15/22 06:48 06:48 06:48 WBC 7.2 RBC 2.70 L Hgb 7.7 L Hct 24.2 L MCV 89.6 MCH 28.5 MCHC 31.8 RDW 16.9 H Plt Count 361 MPV 9.2 L Immature Gran % (Auto) Neut % (Auto) Lymph % (Auto) [place] % (Auto) Eos % (Auto) Baso % (Auto) Lymph # (Auto) [place] # (Auto) Eos # (Auto) Baso # (Auto) Abs Immat Gran (auto) Absolute Neuts (auto) Absolute Nucleated RBC 0.000 Nucleated RBC % (auto) 0.0 Neutrophils % (Manual) Band Neutrophils % Lymphocytes % (Manual) Atypical Lymphs % (Man) Monocytes % (Manual) Metamyelocytes % Myelocytes % Promyelocytes % Abs Neuts (Manual) Lymphocytes # (Manual) Atyp Lymphs # (Manual) Monocytes # (Manual) Metamyelocytes # Myelocytes # Promyelocytes # Smudge Cells Toxic Vacuolation Platelet Estimate Plt Morphology Comment RBC Morphology Polychromasia Hypochromasia Macrocytosis Spherocytes Target Cells Smear Tech's Comments Smear Path Review PT 15.1 H INR 1.3 H APTT Fibrinogen D-Dimer High Sensitivty O2 Saturation ABG pH at Pt Temp ABG pCO2 at Pt Temp ABG pO2 at Pt Temp ABG HCO3 ABG Base Excess (Actual) VBG pH VBG pCO2 VBG pO2 VBG HCO3 VBG O2 Saturation VBG Base Excess Sodium 138 Potassium 4.3 Chloride 107 Carbon Dioxide 26 Anion Gap 9 L BUN 9 Creatinine 0.62 Estim Creat Clear Calc 202.7 Estimated GFR > 60 POC Glucose Random Glucose 84 Lactic Acid Lactic Acid F/U @ 2Hr Lactic Acid F/U @ 4Hr Calcium 8.2 L Phosphorus Magnesium Iron TIBC % Saturation Unsat Iron Binding Ferritin Total Bilirubin Direct Bilirubin AST ALT Alkaline Phosphatase Lactate Dehydrogenase Troponin I High Sens B-Natriuretic Peptide Total Protein Albumin Vitamin B12 Folate Procalcitonin Urine Color Urine Appearance Urine pH Ur Specific [place] Urine Protein Urine Glucose (UA) Urine Ketones Urine Blood Urine Nitrite Ur Leukocyte Esterase Urine RBC Urine WBC Ur Squamous Epith Cells Urine Bacteria Hyaline Casts Granular Casts Pleural WBC Pleural RBC Pleural Neutrophils Pleural Monocytes Pleural Total Protein Pleural Albumin Pleural LDH Pleural Glucose Pleural Amylase Nasal Screen MRSA (PCR) Nasal S. aureus Screen Nasal MRSA/S.aureus Interp Vancomycin Trough Random Vancomycin Urine Opiates Screen Urine Fentanyl Screen Ur Barbiturates Screen Ur Phencyclidine Scrn Ur Amphetamines Screen U Benzodiazepines Scrn Urine Cocaine Screen U Marijuana (THC) Screen HIV 1&2 Ab/P24 Ag 4thGn Influenza Type A (PCR) Influenza Type B (PCR) Ur L.pneumophila Ag RSV RNA Qual (PCR) SARS-CoV-2 RNA (RT-PCR) Ur Strep pneumoniae Ag TB Test (T-Spot) Com TB Test Nil Control TB Test Panel A TB Test Panel B TB Test Positive Cntrl Ref Lab Test Result Blood Type Antibody Screen Crossmatch Airway Mallampati Class: I TM Dist: >3cm Neck ROM: Full Loose/Missing/Broken Teeth: Yes (multiple) Heart: ok Lungs: Checked Assessment and Plan Assessment Anesthesia Assessment: Anesthesia Plan Discussed and Chart Reviewed Final Anesthetic Review Family History of Problems with Anesthesia: No History of Problems with Anesthesia: No NPO: Yes ASA Class: III Final Preanesthetic Review: No Changes in Pt Med Stat, Meds/Allgs Chart Reviewed, Consent Obtained/Reviewed and Anes Risks/Benef Reviewed Patient Risk: High Procedure Risk: High Anesthetic Plan Anesthetic Plan: GA and Agree w/ Assess. and Plan Disposition: Standard PACU
--- NOTE | 2022-12-15 13:39 | HO.PM.IMPN ---
Subjective Subjective Date of Service: 12/15/22 Interval History: seen and examined this morning follow up for hydropneumothorax, loculated pleural effusion denies chest pain, sob Review of Systems Review of Systems: Yes all other systems are reviewed and are negative Constitutional Constitutional: Denies chills and Denies fever(s) Cardiovascular Cardiovascular: Denies chest pain, Denies palpitations and Denies dyspnea Respiratory Respiratory: Denies cough and Denies dyspnea Gastrointestinal Gastrointestinal: Denies abdominal pain, Denies nausea and Denies vomiting Endocrine Endocrine: Denies palpitations Physical Exam Vital Signs: Vital Signs: Last Vital Signs Temp 98.0 F 12/15/22 11:42 Pulse 98 12/15/22 13:29 Resp 20 12/15/22 13:29 BP 134/81 12/15/22 13:29 Pulse Ox 94 12/15/22 13:33 O2 Del Method 12/15/22 13:33 O2 Flow Rate 2 12/15/22 13:29 FiO2 80 12/05/22 13:31 BMI result Body Mass Index 32.3 Const: General: cooperative, comfortable, alert and awake Nutritional Appearance: overweight Orientation/consciousness: patient oriented x3 Resp: Other: dim left side left side chest tube in place Effort & Inspection: normal respiratory effort, able to speak in complete sentences, no respiratory distress and no use of accessory muscles Cardio: Rate: regular rate Heart sounds: S1 normal heart sound present and S2 normal heart sound present GI: Inspection: No distended Palpation (GI): Soft to palpation Neuro: General: patient oriented x3 Extrem: General: Yes no pedal edema Objective Data Active Medications Acetaminophen (Acetaminophen 325 Mg Tablet) 650 mg PO Q6H PRN PRN Reason: Pain, Mild (Pain Scale 1-3) Last Admin: 12/14/22 20:50 Dose: 650 mg Documented By: ALVIN Bisacodyl (Bisacodyl 5 Mg Tablet.) 5 mg PO BEDTIME [facility] Last Admin: 12/14/22 20:50 Dose: 5 mg Documented By: ALVIN Buprenorphine/Naloxone (Buprenorphine/Naloxone 2/0.5mg Film) 1 film SUBLINGUAL DAILY [facility] Last Admin: 12/15/22 09:05 Dose: 1 film Documented By: SOLISPE Divalproex Sodium (Divalproex Sodium 500 Mg Tablet.) 2,000 mg PO BEDTIME [facility] Last Admin: 12/14/22 20:50 Dose: 2,000 mg Documented By: ALVIN Docusate Sodium (Docusate Sodium 100 Mg Capsule) 100 mg PO DAILY PRN PRN Reason: Constipation Last Admin: 12/09/22 21:31 Dose: 100 mg Documented By: CASTILSaji Enoxaparin Sodium (Enoxaparin Sodium 40 Mg/0.4 Ml Syringe) 40 mg SUBCUT Q24H [facility] Last Admin: 12/04/22 19:49 Dose: Not Given Documented By: JOHN Non-Admin Reason: Patient Refused Ferrous Sulfate (Ferrous Sulfate 300 Mg/5 Ml Liquid) 300 mg PO BIDWM [facility] Last Admin: 12/15/22 09:04 Dose: 300 mg Documented By: ESVIN Piperacillin Sod/Tazobactam (Sod 4.5 gm/ Sodium Chloride) 100 mls @ 200 mls/hr IV Q6H [facility] Last Infusion: 12/15/22 13:33 Dose: 0 mls/hr Documented By: ESVIN Dextrose/Sodium Chloride (D5ns) 1,000 mls @ 80 mls/hr IVCONT .[id number] [facility] Stop: 12/16/22 00:59 Last Infusion: 12/15/22 09:21 Dose: 0 mls/hr Documented By: ESVIN Sodium Chloride (0.9 % Sodium Chloride Flush 3 Ml Syringe) 3 ml IVFLUSH QSHIFT [facility] Last Admin: 12/15/22 09:05 Dose: Not Given Documented By: ESVIN Non-Admin Reason: IV Running Labs 12/15/22 06:48 12/15/22 06:48 Labs: Laboratory Results - last 24 hr 12/15/22 12/15/22 12/15/22 06:48 06:48 06:48 MCV 89.6 MCH 28.5 MCHC 31.8 RDW 16.9 H Plt Count 361 MPV 9.2 L Absolute Nucleated RBC 0.000 Nucleated RBC % (auto) 0.0 PT 15.1 H INR 1.3 H Anion Gap 9 L Estim Creat Clear Calc 202.7 Estimated GFR > 60 Random Glucose 84 Calcium 8.2 L Assessment and Plan (1) Hydropneumothorax: Status: Acute (2) Cavitary pneumonia: Status: Acute Plan This is a 42yo M with OUD on Suboxone (abstinent of heroin x 2yr), recently incarcerated x8mo, presenting after 2 weeks of worsening cough and dyspnea-Admitted for severe sepsis with hypoxia and SIMBA due to PNA, found to have multifocal cavitary PNA, complicated by hydropneumothorax, now status post placement of chest tube in ICU, underwent chemical decortication severe sepsis due to multifocal cavitary [id number] pneumonia, likely streptococcal. Legionella + pneumococcal Ags neg MRSA swab POSITIVE HIV Ab/Ag negative TTE no vegetation Studies from 11/30:? AFB and fungal cultures no growth to date (pending) Bronchial washing :? Gram stain negative.? Cultures Yeast < 10 CFU.? T spot is negative. cytology negative for malignant cells,s/p bronchoscopy(12/05/22) -culture noted-d/w ID -no change in antibiotics at present. wbc improved, no fevers important procedures and dates during this admission: S/P ?28Fr chest tube insertion (Dr. Mcdowell) on 11/30/22 S/P ?Chemical decortication (Dr. Mcdowell) on 11/30/22, 12/01/22, and 12/02/2S/P? S/P ?8.5 [place] pigtail catheter placed by IR on 12/06 S/P ?Chemical decortication on 0 12/07 and 12/08 by thoracic surgery plan: initially treated with IV vancomycin 11/27-, pip-delano 11/27-, and azithromycin 11/26 - now on zosyn alone sepsis resolved. Hydropneumothorax status post left-sided chest tube and chemical decortication Continue chest PT, mucolytcs, and aggressive pulmonary toileting with IS/acapella Infectious Disease following, Culture and pathology unremarkable so far -continue Zosyn and then likely ertapenem afterwards (possible 3-6 weeks) repeat chest CT 12/14 showing persistent SEBASTIAN disease - plan for VATS left sided total decortication today airborne precautions can be d/c per ID acute hypoxemic respiratory failure sec to above. wean oxygen as tolerated SIMBA suspect prerenal vs septic ATN resolved after fluid resuscitation. OUD continue Suboxone. mood disorder continue depakote olanzapine, prazosin, mirtazapine were d/c earlier in admission Opioid dependence.? Suboxone Acute blood loss anemia on chronic normocytic anemia Multifactorial:? On going fibrinlysis, chest tube also draining some pinkish liquids) iron studies (low iron ,tibc ,borderline low iron sats ,ferritin , b12 and folate normal-seems related to Acute blood loss anemia. added iron.type and cross done 12/08/22 denies any melena s/p 1prbc- h/h: 8.7/26.5 H/H trending down - pt declines blood transfusion today INR on high side likely from acute illness,possible nutritional component hemtaolgic workup reviewed -likely inr elevated due to above . lft's normal .received vit? kx2 days.inr improved. inr improved overweight : advised to lose weight. Hypoalbuminemia : possible sec to low po intake/acute infection added supplements,nutrition following Prophylaxis:?hold Lovenox due to anemia, scd. Attending - Dr. Barnhart Need for inpatient:pneumonia /persistent loculated effusion and has chest tube and acute ill and may need additional surigical intervention-need iv antibioticsintervention-plan for decortication today Time Spent With Patient Time: Total time managing care of this patient today ____ minutes. Quality Stroke Does the patient have a stroke diagnosis?: No VTE Prior VTE?: No VTE Risk Level:: Medical - moderate - high VTE Device Contraindication: Treatment Not Indicated VTE Drug Contraindication: N/A - Med Ordered
--- NOTE | 2022-12-15 13:46 | MHC.SHP ---
Pre-Procedural Eval Section A Date of Service: 12/15/22 The patient is an INPATIENT: Yes Section B Chief Complaint: SOB, Cough, fatigue x2 weeks Allergies: Allergies Allergy/AdvReac Type Severity Reaction Status Date / Time quetiapine [From Seroquel] Allergy Chest Pain Verified 11/26/22 17:13 Plan I have reviewed the history and physical and performed a pertinent physical examination on my patient. No changes have occurred unless specified.Plan for left VATS decortication today. Time Spent With Patient Time: Total time managing care of this patient today ____ minutes.
--- NOTE | 2022-12-15 14:08 | MHC.CM.PN ---
A referral has been sent to [facility]. The patient will require IV ABX LT. He will transport via S at discharge. CM will follow.
[2022-12-15] MEDS: Lactated Ringers 1,000 ML 50 ML IVCONT (14:23)
--- NOTE | 2022-12-15 16:53 | P.OP_ITS ---
Operative Note Operative Note Date of Service: 12/15/22 Narrative: Preoperative diagnosis: Empyema Postoperative diagnosis: Same And intrapulmonary abscess Operation: left VATS decortication Surgeon: Luis Alberto Wilkinson MD Aircraft Skin Burnisher: Cheikh Deng Specimens: Pleural rind and pleural fluid for pathology/cytology and microbiology EBL: 100 cc Anesthesia: General Operation in detail: The patient was brought to the operating room, placed supinethe operative table, anesthesia monitoring devices were placed, and the patient was intubated with a double-lumen endotracheal tube. The tube was confirmed with a pediatric bronchoscope and a bronchoscopy was done with no endo bronchial lesions and minimal secretions. The patient was then turned with the[] chest up And chest was prepped and draped in the standard sterile fashion. A time-out was performed confirming the correct patient, site, and procedure. After injection of local anesthetic, a 1 cm incision was made the 7th intercostal space posterior axillary line and the chest was entered. With blunt dissection we of the clear some space around this and there was clearly adhesions within the chest. A 2nd incision was then made more superiorly and anteriorly over the 5th intercostal space about 3 cm in size after injection of local anesthetic chest was entered. We then were able to connect these 2 spaces with blunt dissection and get a 5 mm 45 degree scope into the 1st incision to visualize the space. After sometime within had enough space where we could free up the diaphragmatic surface with blunt dissection, anterior surface, posterior surface, and apex. Once this was done, the rind on the lung was then removed with a combination of blunt and sharp dissection decorticating the entire lung. at the apex of the chest we did encounter what appeared to be an abscess cavity within the lung. This was drained and debrided actually with the significant amount of fibrin is and gelatinous debris. 3 L of Pulsavac saline with vancomycin and it was then used to irrigate and wash out the chest. Once this was done, a 28 [place] chest tube was placed with extra holes in it to lie posteriorly and up towards the apex with the more inferior holes over the diaphragm. The chest tube was secured in place with an 0 Vicryl suture and the remaining incisions were closed with a deep 0 Vicryl suture followed by running 3-0 Vicryl suture and Dermabond glue. Patient tolerated The procedure well as brought to the cover room in stable condition.
[2022-12-15] MEDS: Acetaminophen 1,000 MG/100 ML PIGGYBACK 400 MG IV (18:23)
[2022-12-15] MEDS: Ketamine HCl/NS 50 MG/5 ML SYRINGE IVPUSH (18:51)
--- NOTE | 2022-12-15 21:01 | PC.NURSE ---
Addendum entered by Joyce Colmenares RN 12/16/22 01:54: 0130; Patient with sinus tachycardia since back from pacu around 2029. Now hr up to 120s-130s, bp 132/78. Medicated with prn pain medication per emar. Dr. Escobedo made aware of elevated hr. Addendum entered by Joyce Colmenares RN 12/16/22 01:51: 2200; This RN spoke with Percy OSBORN. PA aware of air leak and leaking bloody drainage around chest tube insertion site. Continue to monitor. Original Note: 2029; patient from pacu at this time. VS stable, temp 97.8, hr 102, rr 20, bp 126/74, o2 98% on 2 liters n/c. Lungs clear on right, diminished on left mid and base. Chest tube to left side, leaking bloody drainage at chest tube site, per pacu nurse, chest tube site has been leaking with bloody drainage. Air leak in water seal #4. Call out to thoracic PA, awaiting call.
[2022-12-15] MEDS: Divalproex Sodium 500 MG TABLET.DR 2000 MG PO (21:21)
[2022-12-15] MEDS: bisacodyL 5 MG TABLET.DR PO (21:21)
[2022-12-15] MEDS: HYDROmorphone HCl 0.5 MG/0.5 ML SYRINGE IVPUSH (21:22)
[2022-12-16] VITALS (11 sets, daily range): BP systolic 125–174; BP diastolic 70–83; PULSE 109–140; RESP 18–22; TEMP 36.1–36.9; O2SAT 93–97
--- NOTE | 2022-12-16 | ECG_ITS ---
Test Reason : cp Blood Pressure : / mmHG Vent. Rate : 133 BPM Atrial Rate : 133 BPM P-R Int : 130 ms QRS Dur : 090 ms QT Int : 282 ms P-R-T Axes : 066 060 018 degrees QTc Int : 419 ms Sinus tachycardia Otherwise normal ECG When compared with ECG of 30-NOV-2022 01:38, No significant change was found Referred By: Jerman Escobedo Electronically Signed By:Jeffery Galindo
[2022-12-16] MEDS: oxyCODONE HCl Immed Release 5 MG TABLET 10 MG PO ×5 (00:35→21:11)
[2022-12-16] MEDS: 0.9 % Sodium Chloride Flush 3 ML SYRINGE IVFLUSH ×4 (00:37→21:46)
[2022-12-16] MEDS: Piperacillin Sodium/Tazobactam 4.5 GM in 0.9 % Sodium Chloride 100 ML IV ×4 (04:20→21:40)
[2022-12-16] MEDS: Metoprolol Tartrate 5 MG/5 ML VIAL IVPUSH (05:31)
--- NOTE | 2022-12-16 05:37 | PC.NURSE ---
0430, pt HR was Sinus tachy 140s-150s. Dr. Escobedo made aware. order for stat ekg placed and done. 5mg IV lopressor ordered and given. PT HR now is sinus tachy 109
[2022-12-16 06:51] LABS: Hematocrit 24.7 % (42.0-52.0); Hemoglobin 7.6 g/dl (14.0-18.0); Mean Corpuscular HGB Conc 30.8 g/dl (31.0-36.0); Mean Corpuscular Hemoglobin 28.1 pg (27.0-33.0); Mean Corpuscular Volume 91.5 fL (80.0-98.0); Mean Platelet Volume 8.9 fL (9.4-12.4); Platelet Count 330 X10*3/uL (160-400); Red Cell Distribution Width 16.8 % (11.0-16.0); White Blood Count 11.3 X10*3/uL (4.8-10.8)
[2022-12-16 07:04] LABS: Anion Gap 11 (12-20); Blood Urea Nitrogen 12 mg/dL (9-16); Calcium 8.4 mg/dL (8.4-10.2); Carbon Dioxide 26 mmol/L (22-29); Chloride 104 mmol/L (96-108); Creatinine Clr Calc Pharmacy 157.1; Estimated Glomerular Filt Rate > 60; Glucose Random 115 mg/dL (60-115); Potassium 4.8 mmol/L (3.3-5.1); Sodium 136 mmol/L (135-145)
[2022-12-16] MEDS: Ferrous Sulfate 300 MG/5 ML LIQUID PO ×2 (08:24→16:22)
[2022-12-16] MEDS: Buprenorphine/Naloxone 2/0.5mg FILM 1 FILM SUBLINGUAL ×2 (08:34→21:38)
[2022-12-16] MEDS: Lactated Ringers 1,000 ML 50 ML IVCONT (09:16)
--- NOTE | 2022-12-16 11:26 | HO.PM.IMPN ---
Subjective Subjective Date of Service: 12/16/22 Interval History: seen and examined this morning follow up for empyema s/p VATS decortication 12/15 tachycardic overnight, HR was as high as 150, received IV lopressor, HR improved somewhat patient denies chest pain or palpitations having some pain around chest tube Review of Systems Review of Systems: Yes all other systems are reviewed and are negative Constitutional Constitutional: Denies chills and Denies fever(s) ENT Ears, Nose, Mouth, and Throat: Denies dizziness Cardiovascular Cardiovascular: Denies chest pain, Denies palpitations and Denies dyspnea Respiratory Respiratory: Reports cough and Denies dyspnea Gastrointestinal Gastrointestinal: Denies abdominal pain, Denies nausea and Denies vomiting Neurologic Neurologic: Denies dizziness Endocrine Endocrine: Denies palpitations Physical Exam Vital Signs: Vital Signs: Last Vital Signs Temp 98.5 F 12/16/22 07:46 Pulse 118 H 12/16/22 07:46 Resp 22 H 12/16/22 07:46 BP 128/76 12/16/22 07:46 Pulse Ox 95 12/16/22 07:46 O2 Del Method 12/16/22 07:46 O2 Flow Rate 3 12/16/22 07:46 FiO2 80 12/15/22 19:00 BMI result Body Mass Index 32.3 Const: General: alert and awake Nutritional Appearance: average body habitus Orientation/consciousness: patient oriented x3 Chest: Other: left chest tube in place Resp: Other: pain with deep inspiration but denies sob Effort & Inspection: no respiratory distress Cardio: Rate: tachycardic GI: Inspection: No distended Palpation (GI): Soft to palpation Neuro: General: patient oriented x3 and CN's II-XI intact bilaterally Objective Data Active Medications Acetaminophen (Acetaminophen 325 Mg Tablet) 650 mg PO Q6H PRN PRN Reason: Pain, Mild (Pain Scale 1-3) Last Admin: 12/14/22 20:50 Dose: 650 mg Documented By: ALVIN Bisacodyl (Bisacodyl 5 Mg Tablet.Dr) 5 mg PO BEDTIME [facility] Last Admin: 12/15/22 21:21 Dose: 5 mg Documented By: ALVIN Buprenorphine/Naloxone (Buprenorphine/Naloxone 2/0.5mg Film) 1 film SUBLINGUAL DAILY [facility] Last Admin: 12/16/22 08:34 Dose: 1 film Documented By: MISSAEL Divalproex Sodium (Divalproex Sodium 500 Mg Tablet.) 2,000 mg PO BEDTIME [facility] Last Admin: 12/15/22 21:21 Dose: 2,000 mg Documented By: ALVIN Docusate Sodium (Docusate Sodium 100 Mg Capsule) 100 mg PO DAILY PRN PRN Reason: Constipation Last Admin: 12/09/22 21:31 Dose: 100 mg Documented By: CASTILSaji Enoxaparin Sodium (Enoxaparin Sodium 40 Mg/0.4 Ml Syringe) 40 mg SUBCUT Q24H [facility] Last Admin: 12/04/22 19:49 Dose: Not Given Documented By: KELVIN-LUISITO Non-Admin Reason: Patient Refused Ferrous Sulfate (Ferrous Sulfate 300 Mg/5 Ml Liquid) 300 mg PO BIDWM [facility] Last Admin: 12/16/22 08:24 Dose: 300 mg Documented By: MISSAEL Hydromorphone HCl (Hydromorphone Hcl 0.5 Mg/0.5 Ml Syringe) 0.5 mg IVPUSH Q4H PRN PRN Reason: Breakthrough Pain Last Admin: 12/15/22 21:22 Dose: 0.5 mg Documented By: ALVIN Piperacillin Sod/Tazobactam (Sod 4.5 gm/ Sodium Chloride) 100 mls @ 200 mls/hr IV Q6H [facility] Last Infusion: 12/16/22 09:10 Dose: 0 mls/hr Documented By: MISSAEL Lactated Ringer's (Lr) 1,000 mls @ 50 mls/hr IVCONT .Q20H [facility] Last Admin: 12/16/22 09:16 Dose: 50 mls/hr Documented By: MISSAEL Oxycodone HCl (Oxycodone Hcl Immed Release 5 Mg Tablet) 5 mg PO Q4H PRN PRN Reason: Pain, Moderate (Pain Scale 4-6 Oxycodone HCl (Oxycodone Hcl Immed Release 5 Mg Tablet) 10 mg PO Q4H PRN PRN Reason: Pain, Severe (Pain Scale 7-10) Last Admin: 12/16/22 08:24 Dose: 10 mg Documented By: MISSAEL Sodium Chloride (0.9 % Sodium Chloride Flush 3 Ml Syringe) 3 ml IVFLUSH QSHIFT MAHENDRA Last Admin: 12/16/22 08:28 Dose: 3 ml Documented By: MISSALE Labs 12/16/22 06:20 12/16/22 06:20 Labs: Laboratory Results - last 24 hr 12/16/22 12/16/22 06:20 06:20 MCV 91.5 MCH 28.1 MCHC 30.8 L RDW 16.8 H Plt Count 330 MPV 8.9 L Absolute Nucleated RBC 0.000 Nucleated RBC % (auto) 0.0 Anion Gap 11 L Estim Creat Clear Calc 157.1 Estimated GFR > 60 Random Glucose 115 Calcium 8.4 Microbiology Microbiology Results: Microbiology 12/15/22 15:50 Gram Stain - Final Lung - Pleura,Lt Lung Routine Culture - Preliminary No growth to date. Anaerobic Culture - Preliminary No growth to date. 12/15/22 15:45 Gram Stain - Final Pleural Fluid Routine Culture - Preliminary No growth to date. Anaerobic Culture - Preliminary No growth to date. Assessment and Plan (1) Hydropneumothorax: Status: Acute Plan This is a 42yo M with OUD on Suboxone (abstinent of heroin x 2yr), recently incarcerated x8mo, presenting after 2 weeks of worsening cough and dyspnea-Admitted for severe sepsis with hypoxia and SIMBA due to PNA, found to have multifocal cavitary PNA, complicated by hydropneumothorax, now status post placement of chest tube in ICU, underwent chemical decortication severe sepsis due to multifocal cavitary [id number] pneumonia Legionella + pneumococcal Ags neg MRSA swab POSITIVE HIV Ab/Ag negative TTE no vegetation Studies from 11/30:? AFB and fungal cultures no growth to date (pending) Bronchial washing :? Gram stain negative.? Cultures Yeast < 10 CFU.? T spot is negative. cytology negative for malignant cells,s/p bronchoscopy(12/05/22) -culture noted-d/w ID -no change in antibiotics at present. wbc improved, no fevers important procedures and dates during this admission: S/P ?28Fr chest tube insertion (Dr. Mcdowell) on 11/30/22 S/P ?Chemical decortication (Dr. Mcdowell) on 11/30/22, 12/01/22, and 12/02/2S/P? S/P ?8.5 [place] pigtail catheter placed by IR on 12/06 S/P ?Chemical decortication on 0 12/07 and 12/08 by thoracic surgery plan: initially treated with IV vancomycin 11/27-, pip-delano 11/27-, and azithromycin 11/26 - now on zosyn alone sepsis resolved. Hydropneumothorax status post left-sided chest tube and chemical decortication Continue chest PT, mucolytcs, and aggressive pulmonary toileting with IS/acapella Infectious Disease following, Culture and pathology unremarkable so far - continue Zosyn and then likely ertapenem afterwards (possible 3-6 weeks) repeat chest CT 12/14 showing persistent SEBASTIAN disease -s/p VATS decortication 12/15 airborne precautions can be d/c per ID repeat CXR 12/16 showing increasing subQ emphysema and persistent peripheral opacity of the left lung- thoracic aware, they will see him in follow up this afternoon. Acute blood loss anemia on chronic normocytic anemia Multifactorial:? On going fibrinlysis, chest tube also draining some pinkish liquids) iron studies (low iron, tibc, borderline low iron sats, ferritin, b12 and folate normal-seems related to Acute blood loss anemia continue iron denies any melena s/p 1prbc- h/h: 8.7/26.5 H/H trending down - pt declined transfusion yesterday, but willing to accept today stool occult pending tachycardia ekg sinus tach tele monitoring acute hypoxemic respiratory failure sec to above. wean oxygen as tolerated SIMBA suspect prerenal vs septic ATN resolved after fluid resuscitation. OUD continue Suboxone. mood disorder continue depakote olanzapine, prazosin, mirtazapine were d/c earlier in admission Opioid dependence.? Suboxone INR on high side likely from acute illness,possible nutritional component hemtaolgic workup reviewed -likely inr elevated due to above . lft's normal .received vit? kx2 days.inr improved. inr improved overweight : advised to lose weight. Hypoalbuminemia : possible sec to low po intake/acute infection added supplements,nutrition following Prophylaxis:?hold Lovenox due to anemia, scd. Attending - Dr. Barnhart Need for inpatient:pneumonia /persistent loculated effusion and has chest tube and acute ill and may need additional surigical intervention-need iv antibioticsintervention-plan for decortication today Time Spent With Patient Time: Total time managing care of this patient today ____ minutes. Quality Stroke Does the patient have a stroke diagnosis?: No VTE Prior VTE?: No VTE Risk Level:: Medical - moderate - high VTE Device Contraindication: Treatment Not Indicated VTE Drug Contraindication: N/A - Med Ordered
--- NOTE | 2022-12-16 11:33 | PC.NURSE ---
Addendum entered by Izabel Britt RN 12/16/22 17:04: Thoracic PA request the pt get up OOB to chair and walk around the room. Pt is currently refusing d/t pain in side. Pain medication given and pt educated about importance of movement provided. Pt states he will think about it if his pain gets better. Safety precautions remain in place. Addendum entered by Izabel Britt RN 12/16/22 13:59: pt voiding successfully. safety precautions remain in place. Original Note: report received from overnight RN. helpdesk administrator per DEC. Pt c/o pain to L chest/side with good relief from PRN pain meds. Marcum catheter removed at 1130. Pt tolerated well, urinal at bedside. Chest tube in place, dressing CDI. Safety precautions in place, call [place] within reach, bed alarm on.
--- NOTE | 2022-12-16 11:58 | MHC.CM.PN ---
No discharge today per MD rounds. Pt S/P OR yesterday for decortication. He continues with a CT. [facility] is following for discharge pending bed availability. A Clinical update has been sent to the facility. BRITTANY Abbott via S
--- NOTE | 2022-12-16 13:00 | PM.PNTS ---
Subjective Subjective Date of Service: 12/16/22 Interval history: Patient was seen and examined this afternoon. Yesterday underwent a left VATS mechanical decortication. Overnight his left-sided chest tube remained on -20 low wall suction with approximately 250 cc of serosanguineous fluid output. Patient does complain of some left-sided chest wall discomfort attributed to his surgical incisions which has been reasonably managed with oxycodone. His cough is productive of thick zamora blood-tinged sputum. Denies any shortness of breath at rest and has not ambulated OOB as of yet. According to nursing he refused to ambulate due to his postsurgical pain. Overnight he had persistent sinus tachycardia with a rate as high as 150 and was given Lopressor. During my examination his heart rate remains in sinus tachycardia ranging from 110-120 which may be attributed to his pain. His blood pressure remained stable 130/75 with oxygen saturations in the mid 90s on 3 L nasal cannula. He has begun to void spontaneously without difficulty after Marcum catheter removal. Remaining 10 point review of systems negative at this time: Physical Exam Vital Signs: Vital Signs: Last Vital Signs Temp 98.3 F 12/16/22 11:28 Pulse 121 H 12/16/22 11:28 Resp 22 H 12/16/22 11:28 BP 130/75 12/16/22 11:28 Pulse Ox 93 12/16/22 11:28 O2 Del Method 12/16/22 11:28 O2 Flow Rate 3.5 12/16/22 11:28 FiO2 80 12/15/22 19:00 BMI result Body Mass Index 32.3 HEENT: Other: NC/AT sclera nonicteric, no swollen eyelids. No sinus tenderness Eyes: Other: sclera noniceric Neck: Other: No JVD Chest: Other: Left-sided chest wall incisions remain clean dry and intact with large bore surgical chest tube attached to -20 low wall suction with approximately 250 cc of serosanguineous fluid output and a +1 detectable air leak Resp: Other: Left base diminished with some aeration in SEBASTIAN and right clear. No rhonchi or wheezing. Cardio: Other: RRR GI: Other: abd soft, nontender and non distended. : Other: voiding freely Skin: Other: no rashes Neuro: Other: grossly intact Extrem: Other: no calf tenderness Psych: Other: childlike Procedures Date of Service Date of Service: 12/16/22 Progress Note: A&P Assessment and plan (1) Hydropneumothorax: Status: Acute Assessment and Plan: Mr. Wilkins is a 42 year old male with cavitary pneumonia- streptococcal, MRSA and a left sided hydropneumothoax. TB being ruled out - remains on precautions. S/P ?28Fr chest tube insertion (Dr. Mcdowell) on 11/30/22 S/P ?Chemical decortication (Dr. Mcdowell) on 11/30/22, 12/01/22, and 12/02/2S/P? S/P ?8.5 [place] pigtail catheter placed by Interventional Radiology on 12/06 S/P ?Chemical decortication on 0 8 and 12/08 by thoracic surgery ? POD#1 S/P Left VATS mechanical decortication. Left-sided large bore chest tube remains in place attached to -20 low wall suction's remain on -20 low wall suction until further notice. Chest tube displays +1 air leak noted with forceful cough with 250 cc of serosanguineous fluid output in atrium reservoir Morning chest x-ray shows persistent peripheral opacity of left lung with subcutaneous emphysema along left lateral chest wall. Pain analgesics include oxycodone 5 to 10 mg p.o. with hydromorphone IV 0.5 mg as needed for breakthrough pain. Acetaminophen 650 mg every 6 as needed. Bowel regimen as ordered. Thoracic Surgery will continue to monitor/manage chest tube.? Continue chest tube to -20 mm Hg suction and follow output. Chest x-ray ordered for tomorrow a.m. Bronchial washing :? Gram stain negative.? Cultures Yeast < 10 CFU.? Studies from 11/30:? AFB and fungal cultures no growth to date (pending) Continue chest PT, mucolytcs, and aggressive pulmonary toileting with IS/flutter valve should be done.? ID following - their recommendations:? Continue antibiotics: Zosyn for now and IV ertapenem upon discharge unless changes for 3-6 weeks (now day 10 antibiotics). Recheck CBC for white count and platelet count. Case discussed with Dr. Wilkinson.? Plan Time Spent With Patient Time: Total time managing care of this patient today ____ minutes. Quality Stroke Does the patient have a stroke diagnosis?: No VTE Prior VTE?: No VTE Risk Level:: Medical - moderate - high VTE Device Contraindication: Treatment Not Indicated VTE Drug Contraindication: N/A - Med Ordered
[2022-12-16] MEDS: Divalproex Sodium 500 MG TABLET.DR 2000 MG PO (21:03)
[2022-12-17] VITALS (7 sets, daily range): BP systolic 121–139; BP diastolic 67–86; PULSE 76–122; RESP 14–18; TEMP 36.1–36.9; O2SAT 94–98
[2022-12-17] MEDS: oxyCODONE HCl Immed Release 5 MG TABLET 10 MG PO ×5 (01:28→22:19)
[2022-12-17] MEDS: Piperacillin Sodium/Tazobactam 4.5 GM in 0.9 % Sodium Chloride 100 ML IV ×4 (03:07→23:18)
[2022-12-17] MEDS: Lactated Ringers 1,000 ML 50 ML IVCONT (06:03)
[2022-12-17 06:35] LABS: Hematocrit 24.1 % (42.0-52.0); Hemoglobin 7.4 g/dl (14.0-18.0); Mean Corpuscular HGB Conc 30.7 g/dl (31.0-36.0); Mean Corpuscular Hemoglobin 27.8 pg (27.0-33.0); Mean Corpuscular Volume 90.6 fL (80.0-98.0); Mean Platelet Volume 9.1 fL (9.4-12.4); Platelet Count 229 X10*3/uL (160-400); Red Blood Count 2.66 X10*6/uL (4.60-5.80); Red Cell Distribution Width 16.1 % (11.0-16.0); White Blood Count 10.7 X10*3/uL (4.8-10.8)
[2022-12-17 06:53] LABS: Anion Gap 8 (12-20); Blood Urea Nitrogen 7 mg/dL (9-16); Calcium 8.5 mg/dL (8.4-10.2); Carbon Dioxide 30 mmol/L (22-29); Chloride 98 mmol/L (96-108); Creatinine Clr Calc Pharmacy 199.5; Estimated Glomerular Filt Rate > 60; Glucose Random 110 mg/dL (60-115); Potassium 4.3 mmol/L (3.3-5.1); Sodium 132 mmol/L (135-145)
[2022-12-17] MEDS: 0.9 % Sodium Chloride Flush 3 ML SYRINGE IVFLUSH ×2 (10:09→16:15)
[2022-12-17] MEDS: Ferrous Sulfate 300 MG/5 ML LIQUID PO ×2 (10:11→16:15)
[2022-12-17] MEDS: Buprenorphine/Naloxone 2/0.5mg FILM 1 FILM SUBLINGUAL ×2 (10:12→22:22)
--- NOTE | 2022-12-17 11:34 | P.PNIM_ITS ---
Subjective Subjective Date of Service: 12/17/22 Interval History: seen and examined this morning follow up for empyema s/p VATS decortication 12/15 patient denies chest pain or palpitations having some pain around chest tube Review of Systems Review of Systems: Yes all other systems are reviewed and are negative Constitutional Constitutional: Denies chills and Denies fever(s) ENT Ears, Nose, Mouth, and Throat: Denies dizziness Cardiovascular Cardiovascular: Denies chest pain, Denies palpitations and Denies dyspnea Respiratory Respiratory: Reports cough and Denies dyspnea Gastrointestinal Gastrointestinal: Denies abdominal pain, Denies nausea and Denies vomiting Neurologic Neurologic: Denies dizziness Endocrine Endocrine: Denies palpitations Physical Exam Vital Signs: Vital Signs: Last Vital Signs Temp 97 F 12/17/22 08:00 Pulse 79 12/17/22 08:00 Resp 16 12/17/22 08:00 BP 132/74 12/17/22 08:00 Pulse Ox 97 12/17/22 08:00 O2 Del Method 12/17/22 04:00 O2 Flow Rate 4 12/17/22 04:00 FiO2 80 12/15/22 19:00 BMI result Body Mass Index 32.3 Appearing in no acute distress lung sounds are clear to auscultation, CT inplace heart regular rate rhythm, clear S1, S2 positive bowel sounds, abdomen is soft, nontender neuro patient is alert x3, no focal deficits Objective Data Active Medications Acetaminophen (Acetaminophen 325 Mg Tablet) 650 mg PO Q6H PRN PRN Reason: Pain, Mild (Pain Scale 1-3) Last Admin: 12/14/22 20:50 Dose: 650 mg Documented By: ALVIN Bisacodyl (Bisacodyl 5 Mg Tablet.) 5 mg PO BEDTIME [facility] Last Admin: 12/16/22 21:05 Dose: Not Given Documented By: ALETHA Non-Admin Reason: Patient Refused Buprenorphine/Naloxone (Buprenorphine/Naloxone 2/0.5mg Film) 1 film SUBLINGUAL DAILY [facility] Last Admin: 12/17/22 10:12 Dose: 1 film Documented By: GENI Buprenorphine/Naloxone (Buprenorphine/Naloxone 2/0.5mg Film) 1 film SUBLINGUAL BEDTIME [facility] Last Admin: 12/16/22 21:38 Dose: 1 film Documented By: ALETHA Divalproex Sodium (Divalproex Sodium 500 Mg Tablet.Dr) 2,000 mg PO BEDTIME [facility] Last Admin: 12/16/22 21:03 Dose: 2,000 mg Documented By: ALETHA Docusate Sodium (Docusate Sodium 100 Mg Capsule) 100 mg PO DAILY [facility] Last Admin: 12/17/22 10:17 Dose: Not Given Documented By: GENI Non-Admin Reason: Patient Refused Enoxaparin Sodium (Enoxaparin Sodium 40 Mg/0.4 Ml Syringe) 40 mg SUBCUT Q24H [facility] Last Admin: 12/04/22 19:49 Dose: Not Given Documented By: JOHN Non-Admin Reason: Patient Refused Ferrous Sulfate (Ferrous Sulfate 300 Mg/5 Ml Liquid) 300 mg PO BIDWM [facility] Last Admin: 12/17/22 10:11 Dose: 300 mg Documented By: GENI Hydromorphone HCl (Hydromorphone Hcl 0.5 Mg/0.5 Ml Syringe) 0.5 mg IVPUSH Q4H PRN PRN Reason: Breakthrough Pain Last Admin: 12/15/22 21:22 Dose: 0.5 mg Documented By: ALVIN Piperacillin Sod/Tazobactam (Sod 4.5 gm/ Sodium Chloride) 100 mls @ 200 mls/hr IV Q6H [facility] Last Infusion: 12/17/22 10:44 Dose: 0 mls/hr Documented By: GENI Lactated Ringer's (Lr) 1,000 mls @ 50 mls/hr IVCONT .Q20H [facility] Last Admin: 12/17/22 06:03 Dose: 50 mls/hr Documented By: ALETHA Naloxone HCl (Naloxone Hcl 0.4 Mg/Ml Vial) 0.04 mg IVPUSH Q5M PRN PRN Reason: Respiratory Rate < 10 Oxycodone HCl (Oxycodone Hcl Immed Release 5 Mg Tablet) 5 mg PO Q4H PRN PRN Reason: Pain, Moderate (Pain Scale 4-6 Oxycodone HCl (Oxycodone Hcl Immed Release 5 Mg Tablet) 10 mg PO Q4H PRN PRN Reason: Pain, Severe (Pain Scale 7-10) Last Admin: 12/17/22 10:14 Dose: 10 mg Documented By: GENI Polyethylene Glycol (Polyethylene Glycol 3350 17 Gm Powd.Pack) 17 gm PO DAILY PRN PRN Reason: Constipation Sodium Chloride (0.9 % Sodium Chloride Flush 3 Ml Syringe) 3 ml IVFLUSH QSHIFT MAHENDRA Last Admin: 12/17/22 10:09 Dose: 3 ml Documented By: GENI Labs 12/17/22 06:00 12/17/22 06:00 Labs: Laboratory Results - last 24 hr 12/16/22 12/17/22 12/17/22 11:40 06:00 06:00 MCV 90.6 MCH 27.8 MCHC 30.7 L RDW 16.1 H Plt Count 229 D MPV 9.1 L Absolute Nucleated RBC 0.000 Nucleated RBC % (auto) 0.0 Anion Gap 8 L Estim Creat Clear Calc 199.5 Estimated GFR > 60 Random Glucose 110 Calcium 8.5 Blood Type A Negative Antibody Screen NEGATIVE Crossmatch See Detail Microbiology Microbiology Results: Microbiology 12/15/22 15:45 Gram Stain - Final Pleural Fluid Routine Culture - Preliminary No growth to date. Anaerobic Culture - Preliminary No growth to date. 12/15/22 15:50 Gram Stain - Final Lung - Pleura,Lt Lung Routine Culture - Preliminary No growth to date. Anaerobic Culture - Preliminary No growth to date. Assessment and Plan (1) Hydropneumothorax: Status: Acute Plan This is a 42yo M with OUD on Suboxone (abstinent of heroin x 2yr), recently incarcerated x8mo, presenting after 2 weeks of worsening cough and dyspnea- Admitted for severe sepsis with hypoxia and SIMBA due to PNA, found to have multifocal cavitary PNA, complicated by hydropneumothorax, now status post placement of chest tube in ICU, underwent chemical decortication plan: severe sepsis due to multifocal cavitary [id number] pneumonia Legionella, pneumococcal Ags neg, HIV, TTE, AFB/fungal cx, Tspot, malignant cells, bronchial washing gram stain all negative MRSA swab POSITIVE s/p initially treated with IV vancomycin 11/27-, pip-delano 11/27-, and azithromycin 11/26 - now on zosyn alone sepsis resolved. Hydropneumothorax status post left-sided chest tube and chemical decortication Continue chest PT, mucolytcs, and aggressive pulmonary toileting with IS/acapella Infectious Disease following, Culture and pathology unremarkable so far - continue Zosyn and then likely ertapenem afterwards (possible 3-6 weeks) repeat chest CT 12/14 showing persistent SEBASTIAN disease -s/p VATS decortication 12/15 airborne precautions can be d/c per ID repeat CXR 12/16 showing increasing subQ emphysema and persistent peripheral opacity of the left lung- thoracic aware, they will see him in follow up this afternoon. important procedures and dates during this admission: S/p 28Fr chest tube insertion (Dr. Mcdowell) on 11/30/22 S/p Chemical decortication (Dr. Mcdowell) on 11/30/22, 12/01/22, and 12/02/2S/P? S/P 8.5 [place] pigtail catheter placed by IR on 12/06 S/P Chemical decortication on 12/07 and 12/08 by thoracic surgery Acute blood loss anemia on chronic normocytic anemia Multifactorial On going fibrinlysis, chest tube also draining some pinkish liquids iron studies, low iron, tibc, borderline low iron sats, ferritin, b12 and folate normal-seems related to Acute blood loss anemia continue iron denies any melena s/p 1prbc- h/h: 8.7/26.5 H/H trending down - pt declined transfusion yesterday, but willing to accept today stool occult pending acute hypoxemic respiratory failure sec to above. wean oxygen as tolerated SIMBA suspect prerenal vs septic ATN resolved after fluid resuscitation. mood disorder continue depakote olanzapine, prazosin, mirtazapine were d/c earlier in admission Opioid dependence.? Suboxone INR on high side likely from acute illness,possible nutritional component hemtaolgic workup reviewed -likely inr elevated due to above . lft's normal .received vit?k x2 days. inr improved. Obesity. BMI 32.3 Discussed importance of weight management as this may be contributing to wors ening of other comorbidities Hypoalbuminemia possible sec to low po intake/acute infection added supplements,nutrition following Prophylaxis:?hold Lovenox due to anemia, scd. Attending - Dr. Barnhart Need for inpatient:pneumonia /persistent loculated effusion and has chest tube and acute ill and may need additional surigical intervention-need iv antibioticsintervention-plan for decortication today Time Spent With Patient Time: Total time managing care of this patient today ____ minutes. Quality Stroke Does the patient have a stroke diagnosis?: No VTE Prior VTE?: No VTE Risk Level:: Medical - moderate - high VTE Device Contraindication: Treatment Not Indicated VTE Drug Contraindication: N/A - Med Ordered
--- NOTE | 2022-12-17 12:44 | P.PNTS_ITS ---
Subjective Subjective Date of Service: 12/17/22 Interval history: Patient was seen examined this morning. He states his breathing is greatly improved since his surgery. He continues to have some chest wall discomfort from a surgical incisional sites that has been well controlled on current analgesics. After speaking with the patient patient for surgery has not been OOB since his surgical date. Spoke with the patient about the importance of getting out of bed at least to the chair and Nursing assures me they will get him OB into chair this afternoon. His left-sided chest tube remains on -20 low wall suction with minimal serosanguineous fluid output overnight. Continues to have a very slight +1 air leak with forceful cough. Denies any fevers, chills and continues to cough up small amounts of zamora sputum denies any hemoptysis. Remaining 10 point review systems negative at this time: Physical Exam Vital Signs: Vital Signs: Last Vital Signs Temp 98.0 F 12/17/22 12:00 Pulse 76 12/17/22 12:00 Resp 18 12/17/22 12:00 BP 134/72 12/17/22 12:00 Pulse Ox 97 12/17/22 12:00 O2 Del Method 12/17/22 12:00 O2 Flow Rate 4 12/17/22 04:00 FiO2 80 12/15/22 19:00 BMI result Body Mass Index 32.3 Const: Other: pt is lying in bed, cooperative.? He denies SOB, says that his breathing today is better. No pain around chest tube site and has said that his cough has improved.? He is only coughing up boo secretions. He did have a blood transfusion for a hct of 21/22 General: cooperative HEENT: Other: NC/AT sclera nonicteric, no swollen eyelids. No sinus tenderness Eyes: Other: sclera noniceric Neck: Other: No JVD Chest: Other: Left-sided chest wall incisions remain clean dry and intact with large bore surgical chest tube attached to -20 low wall suction with approximately 250 cc of serosanguineous fluid output and a +1 detectable air leak Resp: Other: Left base diminished with some aeration in SEBASTIAN and right clear. No rhonchi or wheezing. Cardio: Other: RRR GI: Other: abd soft, nontender and non distended. : Other: voiding freely Skin: Other: no rashes Neuro: Other: grossly intact Extrem: Other: no calf tenderness Psych: Other: childlike Procedures Date of Service Date of Service: 12/17/22 Progress Note: A&P Assessment and plan (1) Hydropneumothorax: Status: Acute Assessment and Plan: Mr. Wilkins is a 42 year old male with cavitary pneumonia- streptococcal, MRSA and a left sided hydropneumothoax. TB being ruled out - remains on precautions. S/P ?28Fr chest tube insertion (Dr. Mcdowell) on 11/30/22 S/P ?Chemical decortication (Dr. Mcdowell) on 11/30/22, 12/01/22, and 12/02/2S/P? S/P ?8.5 [place] pigtail catheter placed by Interventional Radiology on 12/06 S/P ?Chemical decortication on 0 8 and 12/08 by thoracic surgery ? POD#2 S/P Left VATS mechanical decortication. * Left-sided large bore chest tube remains in place attached to -20 low wall suction's remain on -20 low wall suction until further notice. * Chest tube displays slight +1 air leak noted with forceful cough with 50 cc of serosanguineous fluid output in atrium reservoir * Morning chest x-ray shows persistent peripheral opacity of left lung with subcutaneous emphysema along left lateral chest wall and possible left hydropneumothorax in the apex. * Pain analgesics include oxycodone 5 to 10 mg p.o. with hydromorphone IV 0.5 mg as needed for breakthrough pain. * Acetaminophen 650 mg every 6 as needed. Bowel regimen as ordered. Thoracic Surgery will continue to monitor/manage chest tube.? Continue chest tube to -20 mm Hg suction and follow output. Chest x-ray ordered for tomorrow a.m. * Bronchial washing :? Gram stain negative.? Cultures Yeast < 10 CFU.? * Studies from 11/30:? AFB and fungal cultures no growth to date (pending) * Continue chest PT, mucolytcs, and aggressive pulmonary toileting with IS/flutter valve should be done.? * ID following - their recommendations:? Continue antibiotics: Zosyn for now and IV ertapenem upon discharge unless changes for 3-6 weeks (now day 10 antibiotics). Recheck CBC for white count and platelet count. * Case discussed with Dr. Wilkinson.? Plan Time Spent With Patient Time: Total time managing care of this patient today ____ minutes. Quality Stroke Does the patient have a stroke diagnosis?: No VTE Prior VTE?: No VTE Risk Level:: Medical - moderate - high VTE Device Contraindication: Treatment Not Indicated VTE Drug Contraindication: N/A - Med Ordered
--- NOTE | 2022-12-17 16:27 | HO.POSTANES ---
Post Anesthesia Evaluation Post Anesthesia Evaluation Vital Signs: Vital Signs Temp Pulse Resp BP Pulse Ox O2 Del Method 12/17/22 15:37 97.0 F 99 17 131/67 96 Nasal Cannula 12/17/22 13:00 94 Nasal Cannula 12/17/22 12:00 98.0 F 76 18 134/72 97 Room Air 12/17/22 08:00 97 F 79 16 132/74 97 Anesthesia: General Endotracheal-GETA (double lumen tube) Mental Status: Awake Pain Control: Satisfactory Nausea/Vomiting: None Hydration: Adequate Anesthesia-Related Issues: No Anes. Related Issues
[2022-12-17] MEDS: bisacodyL 5 MG TABLET.DR PO (22:21)
[2022-12-17] MEDS: Divalproex Sodium 500 MG TABLET.DR 2000 MG PO (22:21)
[2022-12-18] VITALS (7 sets, daily range): BP systolic 120–140; BP diastolic 62–79; PULSE 68–101; RESP 15–18; TEMP 36.3–36.9; O2SAT 94–97
[2022-12-18] MEDS: 0.9 % Sodium Chloride Flush 3 ML SYRINGE IVFLUSH ×4 (03:51→22:20)
[2022-12-18] MEDS: Piperacillin Sodium/Tazobactam 4.5 GM in 0.9 % Sodium Chloride 100 ML IV ×4 (03:51→22:20)
[2022-12-18] MEDS: oxyCODONE HCl Immed Release 5 MG TABLET 10 MG PO ×2 (04:15→22:19)
[2022-12-18 07:31] LABS: Blood Urea Nitrogen 8 mg/dL (9-16); Calcium 8.7 mg/dL (8.4-10.2); Creatinine Clr Calc Pharmacy 216.6; Estimated Glomerular Filt Rate > 60; Glucose Random 104 mg/dL (60-115)
[2022-12-18 07:38] LABS: Anion Gap 10 (12-20); Carbon Dioxide 34 mmol/L (22-29); Chloride 97 mmol/L (96-108); Potassium 4.2 mmol/L (3.3-5.1); Sodium 137 mmol/L (135-145)
[2022-12-18] MEDS: Ferrous Sulfate 300 MG/5 ML LIQUID PO ×2 (09:07→18:00)
[2022-12-18] MEDS: Docusate Sodium 100 MG CAPSULE PO (09:07)
[2022-12-18] MEDS: Buprenorphine/Naloxone 2/0.5mg FILM 1 FILM SUBLINGUAL ×2 (09:07→22:19)
--- NOTE | 2022-12-18 10:37 | HO.PM.IMPN ---
Subjective Subjective Date of Service: 12/18/22 Interval History: seen and examined this morning follow up for empyema s/p VATS decortication 12/15 patient denies chest pain or palpitations having some pain around chest tube Review of Systems Review of Systems: Yes all other systems are reviewed and are negative Constitutional Constitutional: Denies chills and Denies fever(s) ENT Ears, Nose, Mouth, and Throat: Denies dizziness Cardiovascular Cardiovascular: Denies chest pain, Denies palpitations and Denies dyspnea Respiratory Respiratory: Reports cough and Denies dyspnea Gastrointestinal Gastrointestinal: Denies abdominal pain, Denies nausea and Denies vomiting Neurologic Neurologic: Denies dizziness Endocrine Endocrine: Denies palpitations Physical Exam Vital Signs: Vital Signs: Last Vital Signs Temp 98.0 F 12/18/22 08:00 Pulse 78 12/18/22 08:00 Resp 18 12/18/22 08:00 BP 132/79 12/18/22 08:00 Pulse Ox 97 12/18/22 08:00 O2 Del Method 12/18/22 08:00 O2 Flow Rate 3 12/18/22 04:00 FiO2 80 12/15/22 19:00 Oxygen Flow Rate 3 12/17/22 13:00 BMI result Body Mass Index 32.3 Appearing in no acute distress lung sounds are clear to auscultation heart regular rate rhythm, clear S1, S2 positive bowel sounds, abdomen is soft, nontender neuro patient is alert x3, no focal deficits CT in place Objective Data Active Medications Acetaminophen (Acetaminophen 325 Mg Tablet) 650 mg PO Q6H PRN PRN Reason: Pain, Mild (Pain Scale 1-3) Last Admin: 12/14/22 20:50 Dose: 650 mg Documented By: ALVIN Bisacodyl (Bisacodyl 5 Mg Tablet.Dr) 5 mg PO BEDTIME MAHENDRA Last Admin: 12/17/22 22:21 Dose: 5 mg Documented By: ALETHA Buprenorphine/Naloxone (Buprenorphine/Naloxone 2/0.5mg Film) 1 film SUBLINGUAL DAILY MAHENDRA Last Admin: 12/18/22 09:07 Dose: 1 film Documented By: CATARINO Buprenorphine/Naloxone (Buprenorphine/Naloxone 2/0.5mg Film) 1 film SUBLINGUAL BEDTIME MAHENDRA Last Admin: 12/17/22 22:22 Dose: 1 film Documented By: ALETHA Divalproex Sodium (Divalproex Sodium 500 Mg Tablet.Dr) 2,000 mg PO BEDTIME [facility] Last Admin: 12/17/22 22:21 Dose: 2,000 mg Documented By: ALETHA Docusate Sodium (Docusate Sodium 100 Mg Capsule) 100 mg PO DAILY [facility] Last Admin: 12/18/22 09:07 Dose: 100 mg Documented By: CATARINO Enoxaparin Sodium (Enoxaparin Sodium 40 Mg/0.4 Ml Syringe) 40 mg SUBCUT Q24H [facility] Last Admin: 12/04/22 19:49 Dose: Not Given Documented By: JOHN Non-Admin Reason: Patient Refused Ferrous Sulfate (Ferrous Sulfate 300 Mg/5 Ml Liquid) 300 mg PO BIDWM [facility] Last Admin: 12/18/22 09:07 Dose: 300 mg Documented By: CATARINO Hydromorphone HCl (Hydromorphone Hcl 0.5 Mg/0.5 Ml Syringe) 0.5 mg IVPUSH Q4H PRN PRN Reason: Breakthrough Pain Last Admin: 12/15/22 21:22 Dose: 0.5 mg Documented By: ALVIN Piperacillin Sod/Tazobactam (Sod 4.5 gm/ Sodium Chloride) 100 mls @ 200 mls/hr IV Q6H [facility] Last Admin: 12/18/22 09:06 Dose: 200 mls/hr Documented By: CATARINO Naloxone HCl (Naloxone Hcl 0.4 Mg/Ml Vial) 0.04 mg IVPUSH Q5M PRN PRN Reason: Respiratory Rate < 10 Oxycodone HCl (Oxycodone Hcl Immed Release 5 Mg Tablet) 5 mg PO Q4H PRN PRN Reason: Pain, Moderate (Pain Scale 4-6 Oxycodone HCl (Oxycodone Hcl Immed Release 5 Mg Tablet) 10 mg PO Q4H PRN PRN Reason: Pain, Severe (Pain Scale 7-10) Last Admin: 12/18/22 04:15 Dose: 10 mg Documented By: ALETHA Polyethylene Glycol (Polyethylene Glycol 3350 17 Gm Powd.Pack) 17 gm PO DAILY PRN PRN Reason: Constipation Sodium Chloride (0.9 % Sodium Chloride Flush 3 Ml Syringe) 3 ml IVFLUSH QSHIFT [facility] Last Admin: 12/18/22 09:07 Dose: 3 ml Documented By: CATARINO Labs 12/17/22 06:00 12/18/22 06:54 Labs: Laboratory Results - last 24 hr 12/18/22 06:54 Anion Gap 10 L Estim Creat Clear Calc 216.6 Estimated GFR > 60 Random Glucose 104 Calcium 8.7 Microbiology Microbiology Results: Microbiology 12/15/22 15:45 Gram Stain - Final Pleural Fluid Routine Culture - Final No growth after 2 days Anaerobic Culture - Preliminary No growth to date. 12/15/22 15:50 Gram Stain - Final Lung - Pleura,Lt Lung Routine Culture - Final No growth after 2 days Anaerobic Culture - Preliminary No growth to date. Assessment and Plan (1) Hydropneumothorax: Status: Acute Plan This is a 42yo M with OUD on Suboxone (abstinent of heroin x 2yr), recently incarcerated x8mo, presenting after 2 weeks of worsening cough and dyspnea-Admitted for severe sepsis with hypoxia and SIMBA due to PNA, found to have multifocal cavitary PNA, complicated by hydropneumothorax, now status post placement of chest tube in ICU, underwent chemical decortication severe sepsis due to multifocal cavitary [id number] pneumonia Legionella, pneumococcal Ags neg, HIV, TTE, AFB/fungal cx, Tspot, malignant cells, bronchial washing gram stain all negative MRSA swab POSITIVE s/p initially treated with IV vancomycin 11/27-, pip-delano 11/27-, and azithromycin 11/26 - now on zosyn alone sepsis resolved. Hydropneumothorax status post left-sided chest tube and chemical decortication Continue chest PT, mucolytics, and aggressive pulmonary toileting with IS/acapella Infectious Disease following, Culture and pathology unremarkable so far - continue Zosyn and then likely ertapenem afterwards (possible 3-6 weeks) repeat chest CT 12/14 showing persistent SEBASTIAN disease -s/p VATS decortication 12/15 S/p 28Fr chest tube insertion (Dr. Mcdowell) on 11/30/22 S/p Chemical decortication (Dr. Mcdowell) on 11/30/22, 12/01/22, and 12/02/2S/P? S/P 8.5 [place]ian pigtail catheter placed by IR on 12/06 S/P Chemical decortication on 12/07 and 12/08 by thoracic surgery continue CT -[address] surgery following Acute blood loss anemia on chronic normocytic anemia Multifactorial On going fibrinlysis, chest tube also draining some pinkish liquids iron studies, low iron, tibc, borderline low iron sats, ferritin, b12 and folate normal-seems related to Acute blood loss anemia continue iron denies any melena s/p 1prbc- h/h: 8.7/26.5 H/H trending down - pt declined transfusion yesterday, but willing to accept today stool occult pending acute hypoxemic respiratory failure sec to above. wean oxygen as tolerated SIMBA suspect prerenal vs septic ATN resolved after fluid resuscitation. mood disorder continue depakote olanzapine, prazosin, mirtazapine were d/c earlier in admission Opioid dependence.? Suboxone INR on high side likely from acute illness,possible nutritional component hemtaolgic workup reviewed -likely inr elevated due to above . lft's normal .received vit?k x2 days. inr improved. Obesity. BMI 32.3 Discussed importance of weight management as this may be contributing to worsening of other comorbidities Hypoalbuminemia possible sec to low po intake/acute infection added supplements,nutrition following Prophylaxis:?hold Lovenox due to anemia, scd. Attending - Dr. Najera Need for inpatient:pneumonia /persistent loculated effusion and has chest tube and acute ill and may need additional surigical intervention-need iv antibioticsintervention-plan for decortication today Time Spent With Patient Time: Total time managing care of this patient today ____ minutes. Quality Stroke Does the patient have a stroke diagnosis?: No VTE Prior VTE?: No VTE Risk Level:: Medical - moderate - high VTE Device Contraindication: Treatment Not Indicated VTE Drug Contraindication: N/A - Med Ordered
--- NOTE | 2022-12-18 14:19 | P.PNTS_ITS ---
Subjective Subjective Date of Service: 12/18/22 Interval history: Patient was seen examined this morning.? He states his breathing is greatly improved since his surgery.? He continues to have some chest wall discomfort from a surgical incisional sites that has been well controlled on current analgesics.? .? His left-sided chest tube remains on -20 low wall suction with minimal serosanguineous fluid output overnight.? Continues to have a very slight +1 air leak with forceful cough.? Denies any fevers, chills and continues to cough up small amounts of zamora sputum denies any? hemoptysis. Physical Exam Vital Signs: Vital Signs: Last Vital Signs Temp 98.3 F 12/18/22 12:00 Pulse 75 12/18/22 12:00 Resp 18 12/18/22 12:00 BP 139/63 12/18/22 12:00 Pulse Ox 97 12/18/22 12:00 O2 Del Method 12/18/22 08:00 O2 Flow Rate 3 12/18/22 04:00 FiO2 80 12/15/22 19:00 Oxygen Flow Rate 3 12/17/22 13:00 BMI result Body Mass Index 32.3 Const: Other: pt is lying in bed, cooperative.? He denies SOB, says that his breathing today is better. No pain around chest tube site and has said that his cough has improved.? He is only coughing up boo secretions. He did have a blood foreman sfusion for a hct of 21/22 General: cooperative HEENT: Other: NC/AT sclera nonicteric, no swollen eyelids. No sinus tenderness Eyes: Other: sclera noniceric Neck: Other: No JVD Chest: Other: Left-sided chest wall incisions remain clean dry and intact with large bore surgical chest tube attached to -20 low wall suction with approximately 250 cc of serosanguineous fluid output and a +1 detectable air leak Resp: Other: Left base diminished with some aeration in SEBASTIAN and right clear. No rhonchi or wheezing. Cardio: Other: RRR GI: Other: abd soft, nontender and non distended. : Other: voiding freely Skin: Other: no rashes Neuro: Other: grossly intact Extrem: Other: no calf tenderness Psych: Other: childlike Procedures Date of Service Date of Service: 12/18/22 Progress Note: A&P Assessment and plan (1) Hydropneumothorax: Status: Acute Assessment and Plan: Mr. Wilkins is a 42 year old male with cavitary pneumonia- streptococcal, MRSA and a left sided hydropneumothoax. TB being ruled out - remains on precautions. S/P ?28Fr chest tube insertion (Dr. Mcdowell) on 11/30/22 S/P ?Chemical decortication (Dr. Mcdowell) on 11/30/22, 12/01/22, and 2S/P? S/P ?8.5 [place]ian pigtail catheter placed by Interventional Radiology on 12/06 S/P ?Chemical decortication on 0 8 and 12/08 by thoracic surgery ? POD#3 S/P Left VATS mechanical decortication. * Left-sided large bore chest tube remains in place attached to -20 low wall suction. * Chest tube to water seal tonight at midnight with possible removal tomorrw. * Chest tube displays slight +1 air leak noted with forceful cough with 50 cc of serosanguineous fluid output in atrium reservoir * Morning CXR continues to show area of loculation with continued gas at the left apex * Pain analgesics include oxycodone 5 to 10 mg p.o. with hydromorphone IV 0.5 mg as needed for breakthrough pain. * Acetaminophen 650 mg every 6 as needed. Bowel regimen as ordered. Thoracic Surgery will continue to monitor/manage chest tube.? Chest x-ray ordered for tomorrow a.m. * Bronchial washing :? Gram stain negative.? Cultures Yeast < 10 CFU.? * Studies from 11/30:? AFB and fungal cultures no growth to date (pending) * Continue chest PT, mucolytcs, and aggressive pulmonary toileting with IS/flutter valve should be done.? * ID following - their recommendations:? Continue antibiotics: Zosyn for now and IV ertapenem upon discharge unless changes for 3-6 weeks (now day 10 antibiotics). Recheck CBC for white count and platelet count. * Case discussed with Dr. Wilkinson.? Plan Time Spent With Patient Time: Total time managing care of this patient today ____ minutes. Quality Stroke Does the patient have a stroke diagnosis?: No VTE Prior VTE?: No VTE Risk Level:: Medical - moderate - high VTE Device Contraindication: Treatment Not Indicated VTE Drug Contraindication: N/A - Med Ordered
[2022-12-18] MEDS: Acetaminophen 325 MG TABLET 650 MG PO (14:40)
[2022-12-18] MEDS: oxyCODONE HCl Immed Release 5 MG TABLET PO (14:40)
[2022-12-18 21:15] LABS: OBS Int Ctl Valid YES; OBS1 NEGATIVE (NEGATIVE)
[2022-12-18] MEDS: bisacodyL 5 MG TABLET.DR PO (22:19)
[2022-12-18] MEDS: Divalproex Sodium 500 MG TABLET.DR 2000 MG PO (22:19)
[2022-12-19] VITALS (10 sets, daily range): BP systolic 133–151; BP diastolic 69–90; PULSE 74–106; RESP 15–20; TEMP 36.1–36.8; O2SAT 94–98
[2022-12-19] MEDS: Piperacillin Sodium/Tazobactam 4.5 GM in 0.9 % Sodium Chloride 100 ML IV ×4 (02:28→21:30)
[2022-12-19] MEDS: Buprenorphine/Naloxone 2/0.5mg FILM 1 FILM SUBLINGUAL ×2 (08:45→21:29)
[2022-12-19] MEDS: Ferrous Sulfate 300 MG/5 ML LIQUID PO ×2 (08:45→17:33)
--- NOTE | 2022-12-19 09:31 | P.PNIM_ITS ---
Subjective Subjective Date of Service: 12/19/22 Interval History: seen and examined this morning follow up for empyema s/p VATS decortication 12/15 patient denies chest pain or palpitations having some pain around chest tube Review of Systems Review of Systems: Yes all other systems are reviewed and are negative Constitutional Constitutional: Denies chills and Denies fever(s) ENT Ears, Nose, Mouth, and Throat: Denies dizziness Cardiovascular Cardiovascular: Denies chest pain, Denies palpitations and Denies dyspnea Respiratory Respiratory: Reports cough and Denies dyspnea Gastrointestinal Gastrointestinal: Denies abdominal pain, Denies nausea and Denies vomiting Neurologic Neurologic: Denies dizziness Endocrine Endocrine: Denies palpitations Physical Exam Vital Signs: Vital Signs: Last Vital Signs Temp 97.8 F 12/19/22 07:25 Pulse 74 12/19/22 07:25 Resp 16 12/19/22 07:25 BP 137/69 12/19/22 07:25 Pulse Ox 97 12/19/22 07:25 O2 Del Method 12/19/22 07:25 O2 Flow Rate 2 12/19/22 03:03 FiO2 80 12/15/22 19:00 Oxygen Flow Rate 3 12/17/22 13:00 BMI result Body Mass Index 32.3 Appearing in no acute distress lung sounds are clear to auscultation heart regular rate rhythm, clear S1, S2 positive bowel sounds, abdomen is soft, nontender neuro patient is alert x3, no focal deficits Objective Data Active Medications Acetaminophen (Acetaminophen 325 Mg Tablet) 650 mg PO Q6H PRN PRN Reason: Pain, Mild (Pain Scale 1-3) Last Admin: 12/18/22 14:40 Dose: 650 mg Documented By: CATARINO Bisacodyl (Bisacodyl 5 Mg Tablet.Dr) 5 mg PO BEDTIME [facility] Last Admin: 12/18/22 22:19 Dose: 5 mg Documented By: MOKOIE Buprenorphine/Naloxone (Buprenorphine/Naloxone 2/0.5mg Film) 1 film SUBLINGUAL DAILY MAHENDRA Last Admin: 12/19/22 08:45 Dose: 1 film Documented By: ERVIN Buprenorphine/Naloxone (Buprenorphine/Naloxone 2/0.5mg Film) 1 film SUBLINGUAL BEDTIME MAHENDRA Last Admin: 12/18/22 22:19 Dose: 1 film Documented By: MOOKIE Divalproex Sodium (Divalproex Sodium 500 Mg Tablet.) 2,000 mg PO BEDTIME [facility] Last Admin: 12/18/22 22:19 Dose: 2,000 mg Documented By: MOOKIE Docusate Sodium (Docusate Sodium 100 Mg Capsule) 100 mg PO DAILY [facility] Last Admin: 12/19/22 08:46 Dose: Not Given Documented By: ERVIN Non-Admin Reason: Patient Refused Enoxaparin Sodium (Enoxaparin Sodium 40 Mg/0.4 Ml Syringe) 40 mg SUBCUT Q24H [facility] Last Admin: 12/04/22 19:49 Dose: Not Given Documented By: JOHN Non-Admin Reason: Patient Refused Ferrous Sulfate (Ferrous Sulfate 300 Mg/5 Ml Liquid) 300 mg PO BIDWM [facility] Last Admin: 12/19/22 08:45 Dose: 300 mg Documented By: ERVIN Hydromorphone HCl (Hydromorphone Hcl 0.5 Mg/0.5 Ml Syringe) 0.5 mg IVPUSH Q4H PRN PRN Reason: Breakthrough Pain Last Admin: 12/15/22 21:22 Dose: 0.5 mg Documented By: ALVIN Piperacillin Sod/Tazobactam (Sod 4.5 gm/ Sodium Chloride) 100 mls @ 200 mls/hr IV Q6H [facility] Last Admin: 12/19/22 08:45 Dose: 200 mls/hr Documented By: ERVIN Naloxone HCl (Naloxone Hcl 0.4 Mg/Ml Vial) 0.04 mg IVPUSH Q5M PRN PRN Reason: Respiratory Rate < 10 Oxycodone HCl (Oxycodone Hcl Immed Release 5 Mg Tablet) 5 mg PO Q4H PRN PRN Reason: Pain, Moderate (Pain Scale 4-6 Last Admin: 12/18/22 14:40 Dose: 5 mg Documented By: CATARINO Oxycodone HCl (Oxycodone Hcl Immed Release 5 Mg Tablet) 10 mg PO Q4H PRN PRN Reason: Pain, Severe (Pain Scale 7-10) Last Admin: 12/18/22 22:19 Dose: 10 mg Documented By: MOOKIE Polyethylene Glycol (Polyethylene Glycol 3350 17 Gm Powd.Pack) 17 gm PO DAILY PRN PRN Reason: Constipation Sodium Chloride (0.9 % Sodium Chloride Flush 3 Ml Syringe) 3 ml IVFLUSH QSHIFT MAHENDRA Last Admin: 12/18/22 22:20 Dose: 3 ml Documented By: MOOKIE Labs 12/17/22 06:00 12/18/22 06:54 Labs: Laboratory Results - last 24 hr 12/16/22 12/18/22 11:40 20:35 Stool Occult Blood NEGATIVE Blood Type A Negative Antibody Screen NEGATIVE Crossmatch See Detail Microbiology Microbiology Results: Microbiology 12/15/22 15:45 Gram Stain - Final Pleural Fluid Routine Culture - Final No growth after 2 days Anaerobic Culture - Preliminary No growth to date. 12/15/22 15:50 Gram Stain - Final Lung - Pleura,Lt Lung Routine Culture - Final No growth after 2 days Anaerobic Culture - Preliminary No growth to date. Assessment and Plan (1) Hydropneumothorax: Status: Acute Plan This is a 42yo M with OUD on Suboxone (abstinent of heroin x 2yr), recently incarcerated x8mo, presenting after 2 weeks of worsening cough and dyspnea- Admitted for severe sepsis with hypoxia and SIMBA due to PNA, found to have multifocal cavitary PNA, complicated by hydropneumothorax, now status post placement of chest tube in ICU, underwent chemical decortication Hydropneumothorax status post left-sided chest tube and chemical decortication Continue chest PT, mucolytics, and aggressive pulmonary toileting with IS/acapella Infectious Disease following, Culture and pathology unremarkable so far - continue Zosyn and then likely ertapenem afterwards (possible 3-6 weeks) repeat chest CT 12/14 showing persistent SEBASTIAN disease -s/p VATS decortication 12/15 S/p Chemical decortication on 11/30/22, 12/01/22, 12/02/22, 12/07/22,12/08/22 chest tube to water seal, possible removal today, up to CT surgery Severe sepsis due to multifocal cavitary EMN-Vuox-[id number] pneumonia. Resolved Legionella, pneumococcal Ags neg, HIV, TTE, AFB/fungal cx, Tspot, malignant cells, bronchial washing gram stain all negative MRSA swab POSITIVE s/p initially treated with IV vancomycin 11/27-, pip-delano 11/27-, and azithromycin 11/26 - now on zosyn alone sepsis resolved. Acute blood loss anemia on chronic normocytic anemia Multifactorial On going fibrinolysis, chest tube also draining some pinkish liquids low iron, tibc, borderline low iron sats, ferritin, b12 and folate normal continue iron denies any melena s/p 1prbc tx another unit today Acute hypoxemic respiratory failure sec to above. Resolved wean oxygen as tolerated SIMBA suspect prerenal vs septic ATN resolved after fluid resuscitation. mood disorder continue depakote olanzapine, prazosin, mirtazapine were d/c earlier in admission Opioid dependence.? Suboxone INR on high side likely from acute illness,possible nutritional component hemtaolgic workup reviewed -likely inr elevated due to above . lft's normal .received vit?k x2 days. inr improved. Obesity. BMI 32.3 Discussed importance of weight management as this may be contributing to worsening of other comorbidities Hypoalbuminemia possible sec to low po intake/acute infection added supplements,nutrition following Prophylaxis:?hold Lovenox due to anemia, scd. Attending - Dr. Barnhart Need for inpatient:pneumonia /persistent loculated effusion and has chest tube and acute ill and may need additional surigical intervention-need iv antibioticsintervention-plan for decortication today Time Spent With Patient Time: Total time managing care of this patient today ____ minutes. Quality Stroke Does the patient have a stroke diagnosis?: No VTE Prior VTE?: No VTE Risk Level:: Medical - moderate - high VTE Device Contraindication: Treatment Not Indicated VTE Drug Contraindication: N/A - Med Ordered
[2022-12-19] MEDS: oxyCODONE HCl Immed Release 5 MG TABLET 10 MG PO ×3 (11:40→21:28)
[2022-12-19] MEDS: Acetaminophen 325 MG TABLET 650 MG PO (11:40)
--- NOTE | 2022-12-19 15:54 | P.PNTS_ITS ---
Subjective Subjective Date of Service: 12/19/22 Interval history: 42 y/o gentleman hospitalized since November 26 with left cavitary pneumonia and left hydropneumothorax.? CT was placed previously in left lower pleural space and pt under tPA therapy.? A second chest tube was placed on 12/06/22 and patient has had two subsequent rounds of tPA /dornase and a third of tPA alone. On 12/15 he underwent a VATS for mechanical decortication and is now POD#4. CT was placed and overnight he was placed on waterseal overnight. Today, he has no SOB and continues not to show any detectable air leak and minimal drainage. CXR this am shows no pneumothorax. Physical Exam Vital Signs: Vital Signs: Last Vital Signs Temp 96.9 F 12/19/22 13:35 Pulse 96 12/19/22 13:35 Resp 20 12/19/22 13:35 BP 134/79 12/19/22 13:35 Pulse Ox 95 12/19/22 13:00 O2 Del Method 12/19/22 13:00 O2 Flow Rate 2 12/19/22 03:03 FiO2 80 12/15/22 19:00 Oxygen Flow Rate 4 12/19/22 13:00 BMI result Body Mass Index 32.3 Const: Other: pt is sitting upright in bed watching tv. He denies shortness of breath. He says his breathing is better than before surgery. ROS:? denies fever, chills, SOB, pain around chest tube,? abdominal pain, nausea, vomiting, and calf pain.? + productive cough with boo secretions.? General: cooperative HEENT: Other: NC/AT, sclera non-icteric Neck: Other: Trachea midline, symmetric. No crepitus Chest: Other: Left chest tube in place with 10 cc serous drainage in 24 hours, no air leak on waterseal. Resp: Other: Right lung clear, left diminished but no wheezes or rhonchi present. Cardio: Other: RRR GI: Other: Abdomen, soft non-tender nondistended. BS + throughout. + BM : Other: Voiding freely Skin: Other: tattos Neuro: Other: grossly intact Extrem: Other: trace edema Psych: Other: childlike Procedures Date of Service Date of Service: 12/19/22 Progress Note: A&P Assessment and plan (1) Cavitary pneumonia: Status: Acute Plan Mr. Wilkins is a 42 year old male with cavitary pneumonia, streptococcal, MRSA and a left sided hydropneumothoax who is now POD#4 from left VATS. TB ruled out - remains on precautions for MRSA S/P ?28Fr chest tube insertion (Dr. Mcdowell) on 11/30/22 S/P ?Chemical decortication (Dr. Mcdowell) on 11/30/22, 12/01/22, and 12/02/2S/P? S/P ?8.5 Mal[place]ian pigtail catheter placed by Interventional Radiology on 12/06 S/P ?Chemical decortication on 0 8 and 12/08 by thoracic surgery ?No Chemical decorotication on 12/09 - due to elevated INR of 1.9 S/P? ?Chemical decortication (tPA/dornase) on 12/11 by Thoracic Surgery S/P Left VATS on 12/15/22. Left cavitary pneumonia * Morning CXR continues to show area of loculation at left base with decreasing left subcutaneous emphysema. * Left Chest tube with no air leak. Has been on waterseal overnight with no pneumothorax on CXR. Left chest tube removed per protocol. Pt tolerated well. Occlusive dressing to remain in place for 48 hours or until Monday afternoon on 12/21. If it needs to be changed, reinforce it. Again, do not remove for 48 hours. Discussed with nursing to monitor O2 sats X 2 hours. * Cultures from VATS: gram stain: no organism. AFB, DAFB, Fungus are all pending. No growth to date. * Continue chest PT, mucolytcs, and aggressive pulmonary toileting with IS/flutter valve should be done.? Needs to continue to use both devices for an additional month. * ID following - their recommendations:? Continue antibiotics: Zosyn for now and IV ertapenem upon discharge unless changes for 3-6 weeks (now day 10 antibiotics). Recheck CBC for white count and platelet count. * Serum albumin 1.6.? Severe hypoalbuminemia.? Ensure had been added. * Pain analgesics include oxycodone 5 to 10 mg p.o. with hydromorphone IV 0.5 mg as needed for breakthrough pain. * Acetaminophen 650 mg every 6 as needed.Bowel regimen as ordered. * Thoracic Surgery will sign off, please don't hesitate us contact us if anything changes. * He will need follow up appointment with Dr Wilkinson @ [facility] in 2 weeks from 12/15/22. * Thoracic Office #[phone] * Case discussed with Dr. Wilkinson.? Time Spent With Patient Time: Total time managing care of this patient today ____ minutes. Quality Stroke Does the patient have a stroke diagnosis?: No VTE Prior VTE?: No VTE Risk Level:: Medical - moderate - high VTE Device Contraindication: Treatment Not Indicated VTE Drug Contraindication: N/A - Med Ordered
[2022-12-19] MEDS: 0.9 % Sodium Chloride Flush 3 ML SYRINGE IVFLUSH ×2 (17:33→21:30)
[2022-12-19] MEDS: Divalproex Sodium 500 MG TABLET.DR 2000 MG PO (21:28)
[2022-12-20] VITALS (7 sets, daily range): BP systolic 127–152; BP diastolic 72–91; PULSE 88–108; RESP 14–20; TEMP 36–37.6; O2SAT 92–97
[2022-12-20] MEDS: Piperacillin Sodium/Tazobactam 4.5 GM in 0.9 % Sodium Chloride 100 ML IV ×2 (02:36→08:24)
[2022-12-20 07:18] LABS: Hematocrit 26.2 % (42.0-52.0); Hemoglobin 8.1 g/dl (14.0-18.0); Mean Corpuscular HGB Conc 30.9 g/dl (31.0-36.0); Mean Corpuscular Hemoglobin 28.6 pg (27.0-33.0); Mean Corpuscular Volume 92.6 fL (80.0-98.0); Mean Platelet Volume 9.3 fL (9.4-12.4); Platelet Count 205 X10*3/uL (160-400); Red Blood Count 2.83 X10*6/uL (4.60-5.80); Red Cell Distribution Width 15.9 % (11.0-16.0); White Blood Count 6.5 X10*3/uL (4.8-10.8)
[2022-12-20 07:27] LABS: Anion Gap 8 (12-20); Blood Urea Nitrogen 9 mg/dL (9-16); Calcium 8.4 mg/dL (8.4-10.2); Carbon Dioxide 34 mmol/L (22-29); Chloride 98 mmol/L (96-108); Creatinine Clr Calc Pharmacy 224.4; Estimated Glomerular Filt Rate > 60; Glucose Random 93 mg/dL (60-115); Potassium 3.5 mmol/L (3.3-5.1); Sodium 136 mmol/L (135-145)
[2022-12-20] MEDS: Ferrous Sulfate 300 MG/5 ML LIQUID PO ×2 (08:24→16:33)
[2022-12-20] MEDS: 0.9 % Sodium Chloride Flush 3 ML SYRINGE IVFLUSH ×2 (08:24→16:33)
[2022-12-20] MEDS: Buprenorphine/Naloxone 2/0.5mg FILM 1 FILM SUBLINGUAL ×2 (08:24→20:22)
--- NOTE | 2022-12-20 09:54 | P.PNIM_ITS ---
Subjective Subjective Date of Service: 12/20/22 Interval History: seen and examined this morning follow up for empyema s/p VATS decortication 12/15 patient denies chest pain or palpitations Review of Systems Review of Systems: Yes all other systems are reviewed and are negative Constitutional Constitutional: Denies chills and Denies fever(s) ENT Ears, Nose, Mouth, and Throat: Denies dizziness Cardiovascular Cardiovascular: Denies chest pain, Denies palpitations and Denies dyspnea Respiratory Respiratory: Reports cough and Denies dyspnea Gastrointestinal Gastrointestinal: Denies abdominal pain, Denies nausea and Denies vomiting Neurologic Neurologic: Denies dizziness Endocrine Endocrine: Denies palpitations Physical Exam Vital Signs: Vital Signs: Last Vital Signs Temp 97.8 F 12/20/22 08:00 Pulse 100 12/20/22 08:00 Resp 14 12/20/22 08:00 BP 136/83 12/20/22 08:00 Pulse Ox 97 12/20/22 08:00 O2 Del Method 12/20/22 08:00 O2 Flow Rate 4 12/20/22 08:00 FiO2 80 12/15/22 19:00 Oxygen Flow Rate 4 12/19/22 13:00 BMI result Body Mass Index 32.3 Appearing in no acute distress lung sounds are clear to auscultation heart regular rate rhythm, clear S1, S2 positive bowel sounds, abdomen is soft, nontender neuro patient is alert x3, no focal deficits CT removed, occlusive dressing intact Objective Data Active Medications Acetaminophen (Acetaminophen 325 Mg Tablet) 650 mg PO Q6H PRN PRN Reason: Pain, Mild (Pain Scale 1-3) Last Admin: 12/19/22 11:40 Dose: 650 mg Documented By: CHARLI Bisacodyl (Bisacodyl 5 Mg Tablet.Dr) 5 mg PO BEDTIME [facility] Last Admin: 12/19/22 21:29 Dose: Not Given Documented By: ERIKA Non-Admin Reason: Patient Refused Buprenorphine/Naloxone (Buprenorphine/Naloxone 2/0.5mg Film) 1 film SUBLINGUAL DAILY [facility] Last Admin: 12/20/22 08:24 Dose: 1 film Documented By: DEBBIE Buprenorphine/Naloxone (Buprenorphine/Naloxone 2/0.5mg Film) 1 film SUBLINGUAL BEDTIME [facility] Last Admin: 12/19/22 21:29 Dose: 1 film Documented By: ERIKA Divalproex Sodium (Divalproex Sodium 500 Mg Tablet.Dr) 2,000 mg PO BEDTIME [facility] Last Admin: 12/19/22 21:28 Dose: 2,000 mg Documented By: ERIKA Docusate Sodium (Docusate Sodium 100 Mg Capsule) 100 mg PO DAILY [facility] Last Admin: 12/20/22 08:34 Dose: Not Given Documented By: DEBBIE Non-Admin Reason: Patient Refused Enoxaparin Sodium (Enoxaparin Sodium 40 Mg/0.4 Ml Syringe) 40 mg SUBCUT Q24H [facility] Last Admin: 12/04/22 19:49 Dose: Not Given Documented By: JOHN Non-Admin Reason: Patient Refused Ferrous Sulfate (Ferrous Sulfate 300 Mg/5 Ml Liquid) 300 mg PO BIDWM [facility] Last Admin: 12/20/22 08:24 Dose: 300 mg Documented By: DEBBIE Hydromorphone HCl (Hydromorphone Hcl 0.5 Mg/0.5 Ml Syringe) 0.5 mg IVPUSH Q4H PRN PRN Reason: Breakthrough Pain Last Admin: 12/15/22 21:22 Dose: 0.5 mg Documented By: ALVIN Piperacillin Sod/Tazobactam (Sod 4.5 gm/ Sodium Chloride) 100 mls @ 200 mls/hr IV Q6H [facility] Last Admin: 12/20/22 08:24 Dose: 100 mls/hr Documented By: DEBBIE Naloxone HCl (Naloxone Hcl 0.4 Mg/Ml Vial) 0.04 mg IVPUSH Q5M PRN PRN Reason: Respiratory Rate < 10 Oxycodone HCl (Oxycodone Hcl Immed Release 5 Mg Tablet) 5 mg PO Q4H PRN PRN Reason: Pain, Moderate (Pain Scale 4-6 Last Admin: 12/18/22 14:40 Dose: 5 mg Documented By: CATARINO Oxycodone HCl (Oxycodone Hcl Immed Release 5 Mg Tablet) 10 mg PO Q4H PRN PRN Reason: Pain, Severe (Pain Scale 7-10) Last Admin: 12/19/22 21:28 Dose: 10 mg Documented By: ERIKA Polyethylene Glycol (Polyethylene Glycol 3350 17 Gm Powd.Pack) 17 gm PO DAILY PRN PRN Reason: Constipation Sodium Chloride (0.9 % Sodium Chloride Flush 3 Ml Syringe) 3 ml IVFLUSH QSHIFT [facility] Last Admin: 12/20/22 08:24 Dose: 3 ml Documented By: DEBBIE Labs 12/20/22 06:31 12/20/22 06:31 Labs: Laboratory Results - last 24 hr 12/16/22 12/20/22 12/20/22 11:40 06:31 06:31 MCV 92.6 MCH 28.6 MCHC 30.9 L RDW 15.9 Plt Count 205 MPV 9.3 L Absolute Nucleated RBC 0.000 Nucleated RBC % (auto) 0.0 Anion Gap 8 L Estim Creat Clear Calc 224.4 Estimated GFR > 60 Random Glucose 93 Calcium 8.4 Blood Type A Negative Antibody Screen NEGATIVE Crossmatch See Detail Microbiology Microbiology Results: Microbiology 12/15/22 15:50 Gram Stain - Final Lung - Pleura,Lt Lung Routine Culture - Final No growth after 2 days Anaerobic Culture - Preliminary No growth to date. 12/15/22 15:45 Gram Stain - Final Pleural Fluid Routine Culture - Final No growth after 2 days Anaerobic Culture - Preliminary No growth to date. 12/15/22 15:45 Fungal Identification - Preliminary Pleural Fluid No growth to date. 12/15/22 15:50 Fungal Identification - Preliminary Lung - Pleura,Lt Lung No growth to date. 11/30/22 18:30 Fungal Identification - Preliminary Pleural Fluid No growth after 2 weeks. Assessment and Plan (1) Hydropneumothorax: Status: Acute Plan This is a 42yo M with OUD on Suboxone (abstinent of heroin x 2yr), recently incarcerated x8mo, presenting after 2 weeks of worsening cough and dyspnea- Admitted for severe sepsis with hypoxia and SIMBA due to PNA, found to have multifocal cavitary PNA, complicated by hydropneumothorax, now status post place ment of chest tube in ICU, underwent chemical decortication Hydropneumothorax status post left-sided chest tube and chemical decortication Continue chest PT, mucolytics, and aggressive pulmonary toileting with IS/acapella Infectious Disease following, Culture and pathology unremarkable so far, Zosyn started 12/02/[address] 12/14 showing persistent SEBASTIAN disease -s/p VATS decortication 12/15 S/p Chemical decortication on 11/30/22, 12/01/22, 12/02/22, 12/07/22,12/08/22 chest tube removed 12/19/22, occlusive dressing until 12/21/22 plan for 4 weeks of augmentin on discharge Severe sepsis due to multifocal cavitary [id number] pneumonia. Resolved Legionella, pneumococcal Ags neg, HIV, TTE, AFB/fungal cx, Tspot, malignant cells, bronchial washing gram stain all negative MRSA swab POSITIVE s/p initially treated with IV vancomycin 11/27-, pip-delano 11/27-, and azithromycin 11/26 - now on zosyn alone sepsis resolved. Acute blood loss anemia on chronic normocytic anemia Multifactorial On going fibrinolysis, chest tube also draining some pinkish liquids low iron, tibc, borderline low iron sats, ferritin, b12 and folate normal continue iron denies any melena s/p 2 units prbc HH 8.1/26.2 Acute hypoxemic respiratory failure sec to above. Resolved wean oxygen as tolerated SIMBA suspect prerenal vs septic ATN resolved after fluid resuscitation. mood disorder continue depakote olanzapine, prazosin, mirtazapine were d/c earlier in admission Opioid dependence.? Suboxone INR on high side likely from acute illness,possible nutritional component hemtaolgic workup reviewed -likely inr elevated due to above . lft's normal .received vit?k x2 days. inr improved. Obesity. BMI 32.3 Discussed importance of weight management as this may be contributing to worsening of other comorbidities Hypoalbuminemia possible sec to low po intake/acute infection added supplements,nutrition following Prophylaxis:?hold Lovenox due to anemia, scd. Attending - Dr. Barnhart DISPO Plan for safe disposition Need for inpatient:pneumonia /persistent loculated effusion and has chest tube and acute ill and may need additional surigical intervention-need iv antibioticsintervention-plan for decortication today Time Spent With Patient Time: Total time managing care of this patient today ____ minutes. Quality Stroke Does the patient have a stroke diagnosis?: No VTE Prior VTE?: No VTE Risk Level:: Medical - moderate - high VTE Device Contraindication: Treatment Not Indicated VTE Drug Contraindication: N/A - Med Ordered
[2022-12-20] MEDS: oxyCODONE HCl Immed Release 5 MG TABLET PO ×2 (11:52→16:39)
--- NOTE | 2022-12-20 20:02 | PC.NURSE ---
pt reported that he urinate but according to him the urine output is little. patient stated that he urinated few times today using bathroom . He was instructed to use a urinal to measure urine output and RN will perform bladder scan to check PVR. Urine output 50 ml in the urinal, bladder scanned for PVR 60 ml . Pt denied any discomfort during urination ,denied any abdominal pain, pressure
[2022-12-20] MEDS: bisacodyL 5 MG TABLET.DR PO (20:22)
[2022-12-20] MEDS: Divalproex Sodium 500 MG TABLET.DR 2000 MG PO (20:22)
[2022-12-20] MEDS: oxyCODONE HCl Immed Release 5 MG TABLET 10 MG PO (20:57)
[2022-12-21 03:31] VITALS: BP 140/90; PULSE 99; RESP 15; TEMP 36.5; O2SAT 98
[2022-12-21] MEDS: Ferrous Sulfate 300 MG/5 ML LIQUID PO ×2 (07:25→17:04)
[2022-12-21] MEDS: Docusate Sodium 100 MG CAPSULE PO (07:25)
[2022-12-21] MEDS: Buprenorphine/Naloxone 2/0.5mg FILM 1 FILM SUBLINGUAL ×2 (07:25→21:13)
[2022-12-21] MEDS: 0.9 % Sodium Chloride Flush 3 ML SYRINGE IVFLUSH ×3 (07:26→21:16)
[2022-12-21 07:34] VITALS: BP 144/84; PULSE 96; RESP 16; TEMP 36.8; O2SAT 96
[2022-12-21] MEDS: Acetaminophen 325 MG TABLET 650 MG PO (11:19)
[2022-12-21] MEDS: oxyCODONE HCl Immed Release 5 MG TABLET 10 MG PO ×2 (11:20→21:14)
[2022-12-21 11:56] VITALS: BP 133/83; PULSE 72; RESP 16; TEMP 36; O2SAT 92
[2022-12-21 13:00] VITALS: O2SAT 94
[2022-12-21 16:00] VITALS: BP 152/86; PULSE 97; RESP 15; TEMP 36.3; O2SAT 95
--- NOTE | 2022-12-21 17:05 | HO.PM.IMPN ---
Subjective Subjective Date of Service: 12/21/22 Interval History: Continues to cough up purulent thick brown sputum. No respiratory distress Review of Systems Denies chest pain Denies shortness of breath Denies nausea vomiting diarrhea Denies fever chills Physical Exam Vital Signs: Vital Signs: Last Vital Signs Temp 97.4 F 12/21/22 16:00 Pulse 97 12/21/22 16:00 Resp 15 12/21/22 16:00 BP 152/86 H 12/21/22 16:00 Pulse Ox 95 12/21/22 16:00 O2 Del Method 12/21/22 16:00 O2 Flow Rate 3 12/21/22 03:31 FiO2 80 12/15/22 19:00 Oxygen Flow Rate 4 12/19/22 13:00 BMI result Body Mass Index 32.3 Const: Other: Awake alert no acute distress Resp: Other: Diminished left side; no rales rhonchi or wheezes throughout Cardio: Other: No S4; positive S1-S2; no S3 murmurs rubs or gallops GI: Other: Soft nontender nondistended normoactive bowel sounds Extrem: Other: No edema bilaterally Objective Data Active Medications Acetaminophen (Acetaminophen 325 Mg Tablet) 650 mg PO Q6H PRN PRN Reason: Pain, Mild (Pain Scale 1-3) Last Admin: 12/21/22 11:19 Dose: 650 mg Documented By: CHARLI Amoxicillin/Clavulanate Potassium (Amoxicillin/Potassium Clav 875 Mg Tablet) 875 mg PO Q12H [facility] Bisacodyl (Bisacodyl 5 Mg Tablet.) 5 mg PO BEDTIME [facility] Last Admin: 12/20/22 20:22 Dose: 5 mg Documented By: THAIS Buprenorphine/Naloxone (Buprenorphine/Naloxone 2/0.5mg Film) 1 film SUBLINGUAL DAILY [facility] Last Admin: 12/21/22 07:25 Dose: 1 film Documented By: FOSTEKR Buprenorphine/Naloxone (Buprenorphine/Naloxone 2/0.5mg Film) 1 film SUBLINGUAL BEDTIME [facility] Last Admin: 12/20/22 20:22 Dose: 1 film Documented By: THAIS Divalproex Sodium (Divalproex Sodium 500 Mg Tablet.) 2,000 mg PO BEDTIME [facility] Last Admin: 12/20/22 20:22 Dose: 2,000 mg Documented By: THAIS Docusate Sodium (Docusate Sodium 100 Mg Capsule) 100 mg PO DAILY [facility] Last Admin: 12/21/22 07:25 Dose: 100 mg Documented By: CASSY Enoxaparin Sodium (Enoxaparin Sodium 40 Mg/0.4 Ml Syringe) 40 mg SUBCUT Q24H [facility] Last Admin: 12/04/22 19:49 Dose: Not Given Documented By: JOHN Non-Admin Reason: Patient Refused Ferrous Sulfate (Ferrous Sulfate 300 Mg/5 Ml Liquid) 300 mg PO BIDWM [facility] Last Admin: 12/21/22 17:04 Dose: 300 mg Documented By: CASSY Hydromorphone HCl (Hydromorphone Hcl 0.5 Mg/0.5 Ml Syringe) 0.5 mg IVPUSH Q4H PRN PRN Reason: Breakthrough Pain Last Admin: 12/15/22 21:22 Dose: 0.5 mg Documented By: ALVIN Naloxone HCl (Naloxone Hcl 0.4 Mg/Ml Vial) 0.04 mg IVPUSH Q5M PRN PRN Reason: Respiratory Rate < 10 Oxycodone HCl (Oxycodone Hcl Immed Release 5 Mg Tablet) 5 mg PO Q4H PRN PRN Reason: Pain, Moderate (Pain Scale 4-6 Oxycodone HCl (Oxycodone Hcl Immed Release 5 Mg Tablet) 10 mg PO Q4H PRN PRN Reason: Pain, Severe (Pain Scale 7-10) Last Admin: 12/21/22 11:20 Dose: 10 mg Documented By: CHARLI Polyethylene Glycol (Polyethylene Glycol 3350 17 Gm Powd.Pack) 17 gm PO DAILY PRN PRN Reason: Constipation Sodium Chloride (0.9 % Sodium Chloride Flush 3 Ml Syringe) 3 ml IVFLUSH QSHIFT [facility] Last Admin: 12/21/22 17:04 Dose: 3 ml Documented By: CASSY Labs 12/20/22 06:31 12/20/22 06:31 Microbiology Microbiology Results: Microbiology 12/15/22 15:45 Gram Stain - Final Pleural Fluid Routine Culture - Final No growth after 2 days Anaerobic Culture - Final NO GROWTH AFTER 5 DAYS 12/15/22 15:50 Gram Stain - Final Lung - Pleura,Lt Lung Routine Culture - Final No growth after 2 days Anaerobic Culture - Final NO GROWTH AFTER 5 DAYS Assessment and Plan (1) Hydropneumothorax: Status: Acute (2) Severe sepsis: Status: Acute (3) Cavitary pneumonia: Status: Acute (4) Acute blood loss anemia: Status: Acute (5) Substance use disorder: Status: Acute Plan This is a 42yo M with OUD on Suboxone (abstinent of heroin x 2yr), recently incarcerated x8mo, presenting after 2 weeks of worsening cough and dyspnea-Admitted for severe sepsis with hypoxia and SIMBA due to PNA, found to have multifocal cavitary PNA, complicated by hydropneumothorax, now status post placement of chest tube in ICU, underwent chemical decortication. Chest 2 removed without issue 12/19. 1.Hydropneumothorax status post left-sided chest tube and chemical decortication -no issues after chest tube removal -as per ID. .. Augmentin 875 b.i.d. x4 weeks 2.Severe sepsis due to multifocal cavitary PNA(Resolved) -Augmentin as per ID 3.Acute/Chronic blood loss anemia -hemoglobin stable after 2 units PRBCs -follow daily CBCs 4.SIMBA -resolved with volume repletion -follow renals/divalents 5.Opioid dependence.? -Suboxone Ambulatory Full code DISPO Plan for safe disposition Time Spent With Patient Time: Total time managing care of this patient today ____ minutes. Quality Stroke Does the patient have a stroke diagnosis?: No VTE Prior VTE?: No VTE Risk Level:: Medical - moderate - high VTE Device Contraindication: Treatment Not Indicated VTE Drug Contraindication: N/A - Med Ordered
[2022-12-21 19:48] VITALS: BP 162/79; PULSE 89; RESP 16; TEMP 36.3; O2SAT 98
[2022-12-21] MEDS: Divalproex Sodium 500 MG TABLET.DR 2000 MG PO (21:15)
[2022-12-22] VITALS (9 sets, daily range): BP systolic 135–158; BP diastolic 78–92; PULSE 95–107; RESP 14–20; TEMP 36.2–36.9; O2SAT 90–96
[2022-12-22] MEDS: Buprenorphine/Naloxone 2/0.5mg FILM 1 FILM SUBLINGUAL ×2 (07:44→21:04)
[2022-12-22] MEDS: Docusate Sodium 100 MG CAPSULE PO (07:44)
[2022-12-22] MEDS: Ferrous Sulfate 300 MG/5 ML LIQUID PO ×2 (07:44→18:03)
[2022-12-22] MEDS: 0.9 % Sodium Chloride Flush 3 ML SYRINGE IVFLUSH ×3 (07:45→21:05)
[2022-12-22] MEDS: oxyCODONE HCl Immed Release 5 MG TABLET 10 MG PO (07:50)
--- NOTE | 2022-12-22 13:49 | MHC.CM.PN ---
Addendum entered by Gloria Hope 12/22/22 14:29: [facility] DID NURSE TO NURSE REVIEW. THEY ARE UNABLE TO TAKE DUE TO HIM BEING ON 3 L 02 AT [facility] UNTIL [facility], THEY ARE REQUESTING HE HAVE NARES RESWABBED AND NEED TO BE OFF PRECAUTIONS X 24 HOURS AND TO ENSURE HE WILL BE ABLE TO MANAGE HIS CHEST TUBE SITE DRESSING ON HIS OWN. AWARE. CM WILL CONTINUE TO FOLLOW. Original Note: DP: PT HAS BEEN ACCEPTED BY [facility] IN [place]. THEY ARE REQUESTING A DC BETWEEN 11 AND 12 NOON 12/23. [facility]CT [facility]: ROXANA GRIGSBY : [phone] EMAIL: [email or web address] ROX[facility] IS REQUESTING SCRIPTS/MEDS BE SENT TO [facility] [address] [place] [address]. PH: [phone] FAX:[phone] [employer] FERNIE MCNAIR WILL TRANSPORT.([phone]) AWARE.
--- NOTE | 2022-12-22 17:07 | P.PNIM_ITS ---
Subjective Subjective Date of Service: 12/22/22 Interval History: markedly improved today. Minimal desat noted. continues productive cough Review of Systems Denies chest pain Denies shortness of breath Denies nausea vomiting diarrhea Denies fever chills Physical Exam Vital Signs: Vital Signs: Last Vital Signs Temp 98.1 F 12/22/22 15:50 Pulse 95 12/22/22 15:50 Resp 14 12/22/22 15:50 BP 139/81 12/22/22 15:50 Pulse Ox 95 12/22/22 15:50 O2 Del Method 12/22/22 15:50 O2 Flow Rate 3 12/22/22 04:00 FiO2 80 12/15/22 19:00 Oxygen Flow Rate 4 12/19/22 13:00 BMI result Body Mass Index 32.3 Const: Other: Awake alert no acute distress Resp: Other: Diminished left side; no rales rhonchi or wheezes throughout Cardio: Other: No S4; positive S1-S2; no S3 murmurs rubs or gallops GI: Other: Soft nontender nondistended normoactive bowel sounds Extrem: Other: No edema bilaterally Objective Data Active Medications Acetaminophen (Acetaminophen 325 Mg Tablet) 650 mg PO Q6H PRN PRN Reason: Pain, Mild (Pain Scale 1-3) Last Admin: 12/21/22 11:19 Dose: 650 mg Documented By: CHARLI Amoxicillin/Clavulanate Potassium (Amoxicillin/Potassium Clav 875 Mg Tablet) 875 mg PO Q12H [facility] Bisacodyl (Bisacodyl 5 Mg Tablet.) 5 mg PO BEDTIME [facility] Last Admin: 12/21/22 21:12 Dose: Not Given Documented By: ALETHA Non-Admin Reason: Patient Refused Buprenorphine/Naloxone (Buprenorphine/Naloxone 2/0.5mg Film) 1 film SUBLINGUAL DAILY [facility] Last Admin: 12/22/22 07:44 Dose: 1 film Documented By: CASSY Buprenorphine/Naloxone (Buprenorphine/Naloxone 2/0.5mg Film) 1 film SUBLINGUAL BEDTIME [facility] Last Admin: 12/21/22 21:13 Dose: 1 film Documented By: ALETHA Divalproex Sodium (Divalproex Sodium 500 Mg Tablet.) 2,000 mg PO BEDTIME [facility] Last Admin: 12/21/22 21:15 Dose: 2,000 mg Documented By: ALETHA Docusate Sodium (Docusate Sodium 100 Mg Capsule) 100 mg PO DAILY [facility] Last Admin: 12/22/22 07:44 Dose: 100 mg Documented By: CASSY Enoxaparin Sodium (Enoxaparin Sodium 40 Mg/0.4 Ml Syringe) 40 mg SUBCUT Q24H [facility] Last Admin: 12/04/22 19:49 Dose: Not Given Documented By: JOHN Non-Admin Reason: Patient Refused Ferrous Sulfate (Ferrous Sulfate 300 Mg/5 Ml Liquid) 300 mg PO BIDWM [facility] Last Admin: 12/22/22 07:44 Dose: 300 mg Documented By: CASSY Hydromorphone HCl (Hydromorphone Hcl 0.5 Mg/0.5 Ml Syringe) 0.5 mg IVPUSH Q4H PRN PRN Reason: Breakthrough Pain Last Admin: 12/15/22 21:22 Dose: 0.5 mg Documented By: ALVIN Naloxone HCl (Naloxone Hcl 0.4 Mg/Ml Vial) 0.04 mg IVPUSH Q5M PRN PRN Reason: Respiratory Rate < 10 Oxycodone HCl (Oxycodone Hcl Immed Release 5 Mg Tablet) 5 mg PO Q4H PRN PRN Reason: Pain, Moderate (Pain Scale 4-6 Oxycodone HCl (Oxycodone Hcl Immed Release 5 Mg Tablet) 10 mg PO Q4H PRN PRN Reason: Pain, Severe (Pain Scale 7-10) Last Admin: 12/22/22 07:50 Dose: 10 mg Documented By: CASSY Polyethylene Glycol (Polyethylene Glycol 3350 17 Gm Powd.Pack) 17 gm PO DAILY PRN PRN Reason: Constipation Sodium Chloride (0.9 % Sodium Chloride Flush 3 Ml Syringe) 3 ml IVFLUSH QSHIFT [facility] Last Admin: 12/22/22 07:45 Dose: 3 ml Documented By: CASSY Labs 12/20/22 06:31 12/20/22 06:31 Microbiology Microbiology Results: Microbiology 12/15/22 15:45 Gram Stain - Final Pleural Fluid Routine Culture - Final No growth after 2 days Anaerobic Culture - Final NO GROWTH AFTER 5 DAYS Assessment and Plan (1) Hydropneumothorax: Status: Acute (2) Sepsis with acute hypoxic respiratory failure: Status: Acute (3) Acute blood loss anemia: Status: Acute (4) SIMBA (acute kidney injury): Status: Acute Plan This is a 42yo M with OUD on Suboxone (abstinent of heroin x 2yr), recently incarcerated x8mo, presenting after 2 weeks of worsening cough and dyspnea- Admitted for severe sepsis with hypoxia and SIMBA due to PNA, found to have multifocal cavitary PNA, complicated by hydropneumothorax, now status post placement of chest tube in ICU, underwent chemical decortication. Chest 2 removed without issue 12/19. 1.Hydropneumothorax status post left-sided chest tube and chemical decortication -no issues after chest tube removal - O2 requirement continues to lessen -as per ID. .. Augmentin 875 b.i.d. x4 weeks 2.Severe sepsis due to multifocal cavitary PNA(Resolved) -Augmentin as per ID 3.Acute/Chronic blood loss anemia -hemoglobin stable after 2 units PRBCs -follow daily CBCs 4.SIMBA -resolved with volume repletion -follow renals/divalents 5.Opioid dependence.? -Suboxone Ambulatory Full code DISPO Plan for safe disposition Time Spent With Patient Time: Total time managing care of this patient today ____ minutes. Quality Stroke Does the patient have a stroke diagnosis?: No VTE Prior VTE?: No VTE Risk Level:: Medical - moderate - high VTE Device Contraindication: Treatment Not Indicated VTE Drug Contraindication: N/A - Med Ordered
[2022-12-22] MEDS: bisacodyL 5 MG TABLET.DR PO (21:01)
[2022-12-22] MEDS: Divalproex Sodium 500 MG TABLET.DR 2000 MG PO (21:01)
[2022-12-23] VITALS (7 sets, daily range): BP systolic 129–156; BP diastolic 78–97; PULSE 89–127; RESP 18–20; TEMP 36.2–37; O2SAT 91–98
[2022-12-23] MEDS: Acetaminophen 325 MG TABLET 650 MG PO ×2 (06:13→20:50)
[2022-12-23] MEDS: oxyCODONE HCl Immed Release 5 MG TABLET 10 MG PO (06:14)
[2022-12-23] MEDS: 0.9 % Sodium Chloride Flush 3 ML SYRINGE IVFLUSH ×2 (08:35→15:58)
[2022-12-23] MEDS: Ferrous Sulfate 300 MG/5 ML LIQUID PO ×2 (08:35→15:58)
[2022-12-23] MEDS: Buprenorphine/Naloxone 2/0.5mg FILM 1 FILM SUBLINGUAL ×2 (08:35→20:50)
[2022-12-23] MEDS: Docusate Sodium 100 MG CAPSULE PO (08:35)
--- NOTE | 2022-12-23 12:46 | MHC.CM.PN ---
DP to [facility]pite Monday. MRSA swab nares ordered. Respite requires pt to be off precautions 24 hours. Patient is on RA. Patient was ordered for O2 @ [facility]. He needs to wean from supplemental oxygen. Patient needs to be independent with dressing changes if he has a dressing. A sleep study referral is also requested. MD is aware that the patient will transfer Monday once these barriers are addressed. CM will follow. Transport will be provided at discharge by [facility] Mattson suction worker [phone].
[2022-12-23 13:15] LABS: MRSA Nasal PCR NEGATIVE (Negative); SA Nasal PCR NEGATIVE (Negative)
--- NOTE | 2022-12-23 14:21 | P.PNIM_ITS ---
Subjective Subjective Date of Service: 12/23/22 Interval History: continues to improved. Now with acceptable sats on room air Review of Systems Denies chest pain Denies shortness of breath Denies nausea vomiting diarrhea Denies fever chills Physical Exam Vital Signs: Vital Signs: Last Vital Signs Temp 97.5 F 12/23/22 12:00 Pulse 93 12/23/22 12:00 Resp 18 12/23/22 12:00 BP 156/97 H 12/23/22 12:00 Pulse Ox 95 12/23/22 12:00 O2 Del Method 12/23/22 12:00 O2 Flow Rate 3 12/22/22 04:00 FiO2 80 12/15/22 19:00 Oxygen Flow Rate 4 12/19/22 13:00 BMI result Body Mass Index 32.3 Const: Other: Awake alert no acute distress Resp: Other: Diminished left side; no rales rhonchi or wheezes throughout Cardio: Other: No S4; positive S1-S2; no S3 murmurs rubs or gallops GI: Other: Soft nontender nondistended normoactive bowel sounds Extrem: Other: No edema bilaterally Objective Data Active Medications Acetaminophen (Acetaminophen 325 Mg Tablet) 650 mg PO Q6H PRN PRN Reason: Pain, Mild (Pain Scale 1-3) Last Admin: 12/23/22 06:13 Dose: 650 mg Documented By: CHARLI Amoxicillin/Clavulanate Potassium (Amoxicillin/Potassium Clav 875 Mg Tablet) 875 mg PO Q12H [facility] Bisacodyl (Bisacodyl 5 Mg Tablet.) 5 mg PO BEDTIME [facility] Last Admin: 12/22/22 21:01 Dose: 5 mg Documented By: SHWETHA Buprenorphine/Naloxone (Buprenorphine/Naloxone 2/0.5mg Film) 1 film SUBLINGUAL DAILY [facility] Last Admin: 12/23/22 08:35 Dose: 1 film Documented By: INA Buprenorphine/Naloxone (Buprenorphine/Naloxone 2/0.5mg Film) 1 film SUBLINGUAL BEDTIME [facility] Last Admin: 12/22/22 21:04 Dose: 1 film Documented By: SHWETHA Divalproex Sodium (Divalproex Sodium 500 Mg Tablet.) 2,000 mg PO BEDTIME [facility] Last Admin: 12/22/22 21:01 Dose: 2,000 mg Documented By: SHWETHA Docusate Sodium (Docusate Sodium 100 Mg Capsule) 100 mg PO DAILY [facility] Last Admin: 12/23/22 08:35 Dose: 100 mg Documented By: INA Enoxaparin Sodium (Enoxaparin Sodium 40 Mg/0.4 Ml Syringe) 40 mg SUBCUT Q24H [facility] Last Admin: 12/04/22 19:49 Dose: Not Given Documented By: JOHN Non-Admin Reason: Patient Refused Ferrous Sulfate (Ferrous Sulfate 300 Mg/5 Ml Liquid) 300 mg PO BIDWM [facility] Last Admin: 12/23/22 08:35 Dose: 300 mg Documented By: INA Hydromorphone HCl (Hydromorphone Hcl 0.5 Mg/0.5 Ml Syringe) 0.5 mg IVPUSH Q4H PRN PRN Reason: Breakthrough Pain Last Admin: 12/15/22 21:22 Dose: 0.5 mg Documented By: ALVIN Naloxone HCl (Naloxone Hcl 0.4 Mg/Ml Vial) 0.04 mg IVPUSH Q5M PRN PRN Reason: Respiratory Rate < 10 Oxycodone HCl (Oxycodone Hcl Immed Release 5 Mg Tablet) 5 mg PO Q4H PRN PRN Reason: Pain, Moderate (Pain Scale 4-6 Oxycodone HCl (Oxycodone Hcl Immed Release 5 Mg Tablet) 10 mg PO Q4H PRN PRN Reason: Pain, Severe (Pain Scale 7-10) Last Admin: 12/23/22 06:14 Dose: 10 mg Documented By: CHARLI Polyethylene Glycol (Polyethylene Glycol 3350 17 Gm Powd.Pack) 17 gm PO DAILY PRN PRN Reason: Constipation Sodium Chloride (0.9 % Sodium Chloride Flush 3 Ml Syringe) 3 ml IVFLUSH QSHIFT [facility] Last Admin: 12/23/22 08:35 Dose: 3 ml Documented By: INA Labs 12/20/22 06:31 12/20/22 06:31 Labs: Laboratory Results - last 24 hr 12/23/22 11:09 Nasal Screen MRSA (PCR) NEGATIVE Nasal S. aureus Screen NEGATIVE Nasal MRSA/S.aureus Interp SEE NOTE Microbiology Microbiology Results: Microbiology 12/15/22 15:50 Direct Acid Fast Bacilli Smear - Final Lung - Pleura,Lt Lung 12/15/22 15:45 Direct Acid Fast Bacilli Smear - Final Pleural Fluid Assessment and Plan (1) Hydropneumothorax: Status: Acute (2) SIMBA (acute kidney injury): Status: Acute (3) Acute blood loss anemia: Status: Acute Plan This is a 42yo M with OUD on Suboxone (abstinent of heroin x 2yr), recently incarcerated x8mo, presenting after 2 weeks of worsening cough and dyspnea- Admitted for severe sepsis with hypoxia and SIMBA due to PNA, found to have multifocal cavitary PNA, complicated by hydropneumothorax, now status post placement of chest tube in ICU, underwent chemical decortication. Chest 2 removed without issue 12/19. 1.Hydropneumothorax status post left-sided chest tube and chemical decortication -no issues after chest tube removal - O2 resolved -as per ID. .. Augmentin 875 b.i.d. x4 weeks 2.Severe sepsis due to multifocal cavitary PNA(Resolved) -Augmentin as per ID 3.Acute/Chronic blood loss anemia -hemoglobin stable after 2 units PRBCs -follow daily CBCs 4.SIMBA -resolved with volume repletion -follow renals/divalents 5.Opioid dependence.? -Suboxone Ambulatory Full code DISPO Plan for safe disposition Time Spent With Patient Time: Total time managing care of this patient today ____ minutes. Quality Stroke Does the patient have a stroke diagnosis?: No VTE Prior VTE?: No VTE Risk Level:: Medical - moderate - high VTE Device Contraindication: Treatment Not Indicated VTE Drug Contraindication: N/A - Med Ordered
[2022-12-23] MEDS: bisacodyL 5 MG TABLET.DR PO (20:50)
[2022-12-23] MEDS: Divalproex Sodium 500 MG TABLET.DR 2000 MG PO (20:50)
[2022-12-24] VITALS (7 sets, daily range): BP systolic 131–164; BP diastolic 76–92; PULSE 80–111; RESP 18–20; TEMP 36.5–37.2; O2SAT 93–98
[2022-12-24] MEDS: Buprenorphine/Naloxone 2/0.5mg FILM 1 FILM SUBLINGUAL ×2 (09:14→23:34)
[2022-12-24] MEDS: Acetaminophen 325 MG TABLET 650 MG PO ×2 (09:14→23:36)
[2022-12-24] MEDS: Docusate Sodium 100 MG CAPSULE PO (09:14)
[2022-12-24] MEDS: Ferrous Sulfate 300 MG/5 ML LIQUID PO ×2 (09:14→16:34)
[2022-12-24] MEDS: 0.9 % Sodium Chloride Flush 3 ML SYRINGE IVFLUSH ×3 (09:14→23:36)
--- NOTE | 2022-12-24 14:50 | P.PNIM_ITS ---
Subjective Subjective Date of Service: 12/24/22 Interval History: quiet night. No O2 requirement at present. MRSA screen negative Review of Systems Denies chest pain Denies shortness of breath Denies nausea vomiting diarrhea Denies fever chills Physical Exam Vital Signs: Vital Signs: Last Vital Signs Temp 97.7 F 12/24/22 11:52 Pulse 95 12/24/22 11:52 Resp 20 12/24/22 11:52 BP 150/92 H 12/24/22 11:52 Pulse Ox 93 12/24/22 13:00 O2 Del Method 12/24/22 13:00 O2 Flow Rate 3 12/22/22 04:00 FiO2 80 12/15/22 19:00 Oxygen Flow Rate 4 12/19/22 13:00 BMI result Body Mass Index 32.3 Const: Other: Awake alert no acute distress Resp: Other: Diminished left side; no rales rhonchi or wheezes throughout Cardio: Other: No S4; positive S1-S2; no S3 murmurs rubs or gallops GI: Other: Soft nontender nondistended normoactive bowel sounds Extrem: Other: No edema bilaterally Objective Data Active Medications Acetaminophen (Acetaminophen 325 Mg Tablet) 650 mg PO Q6H PRN PRN Reason: Pain, Mild (Pain Scale 1-3) Last Admin: 12/24/22 09:14 Dose: 650 mg Documented By: GERRY Amoxicillin/Clavulanate Potassium (Amoxicillin/Potassium Clav 875 Mg Tablet) 875 mg PO Q12H [facility] Bisacodyl (Bisacodyl 5 Mg Tablet.) 5 mg PO BEDTIME [facility] Last Admin: 12/23/22 20:50 Dose: 5 mg Documented By: MIKEL Buprenorphine/Naloxone (Buprenorphine/Naloxone 2/0.5mg Film) 1 film SUBLINGUAL DAILY [facility] Last Admin: 12/24/22 09:14 Dose: 1 film Documented By: GERRY Buprenorphine/Naloxone (Buprenorphine/Naloxone 2/0.5mg Film) 1 film SUBLINGUAL BEDTIME [facility] Last Admin: 12/23/22 20:50 Dose: 1 film Documented By: MIKEL Divalproex Sodium (Divalproex Sodium 500 Mg Tablet.) 2,000 mg PO BEDTIME [facility] Last Admin: 12/23/22 20:50 Dose: 2,000 mg Documented By: MIKEL Docusate Sodium (Docusate Sodium 100 Mg Capsule) 100 mg PO DAILY [facility] Last Admin: 12/24/22 09:14 Dose: 100 mg Documented By: GERRY Enoxaparin Sodium (Enoxaparin Sodium 40 Mg/0.4 Ml Syringe) 40 mg SUBCUT Q24H [facility] Last Admin: 12/04/22 19:49 Dose: Not Given Documented By: JOHN Non-Admin Reason: Patient Refused Ferrous Sulfate (Ferrous Sulfate 300 Mg/5 Ml Liquid) 300 mg PO BIDWM [facility] Last Admin: 12/24/22 09:14 Dose: 300 mg Documented By: GERRY Hydromorphone HCl (Hydromorphone Hcl 0.5 Mg/0.5 Ml Syringe) 0.5 mg IVPUSH Q4H PRN PRN Reason: Breakthrough Pain Last Admin: 12/15/22 21:22 Dose: 0.5 mg Documented By: ALVIN Naloxone HCl (Naloxone Hcl 0.4 Mg/Ml Vial) 0.04 mg IVPUSH Q5M PRN PRN Reason: Respiratory Rate < 10 Oxycodone HCl (Oxycodone Hcl Immed Release 5 Mg Tablet) 5 mg PO Q4H PRN PRN Reason: Pain, Moderate (Pain Scale 4-6 Oxycodone HCl (Oxycodone Hcl Immed Release 5 Mg Tablet) 10 mg PO Q4H PRN PRN Reason: Pain, Severe (Pain Scale 7-10) Last Admin: 12/23/22 06:14 Dose: 10 mg Documented By: CHARLI Polyethylene Glycol (Polyethylene Glycol 3350 17 Gm Powd.Pack) 17 gm PO DAILY PRN PRN Reason: Constipation Sodium Chloride (0.9 % Sodium Chloride Flush 3 Ml Syringe) 3 ml IVFLUSH QSHIFT [facility] Last Admin: 12/24/22 09:14 Dose: 3 ml Documented By: GERRY Labs 12/20/22 06:31 12/20/22 06:31 Assessment and Plan (1) Hydropneumothorax: Status: Acute (2) Severe sepsis: Status: Acute (3) Acute blood loss anemia: Status: Acute Plan This is a 42yo M with OUD on Suboxone (abstinent of heroin x 2yr), recently incarcerated x8mo, presenting after 2 weeks of worsening cough and dyspnea- Admitted for severe sepsis with hypoxia and SIMBA due to PNA, found to have multifocal cavitary PNA, complicated by hydropneumothorax, now status post placement of chest tube in ICU, underwent chemical decortication. Chest 2 removed without issue 12/19. 1.Hydropneumothorax status post left-sided chest tube and chemical decortication -no issues after chest tube removal - O2 resolved -as per ID. .. Augmentin 875 b.i.d. x4 weeks(LD 01/12/23) 2.Severe sepsis due to multifocal cavitary PNA(Resolved) -Augmentin as per ID 3.Acute/Chronic blood loss anemia -hemoglobin stable after 2 units PRBCs -follow daily CBCs 4.SIMBA -resolved with volume repletion -follow renals/divalents 5.Opioid dependence.? -Suboxone Ambulatory Full code DISPO Plan for safe disposition Time Spent With Patient Time: Total time managing care of this patient today ____ minutes. Quality Stroke Does the patient have a stroke diagnosis?: No VTE Prior VTE?: No VTE Risk Level:: Medical - moderate - high VTE Device Contraindication: Treatment Not Indicated VTE Drug Contraindication: N/A - Med Ordered
[2022-12-24] MEDS: bisacodyL 5 MG TABLET.DR PO (23:34)
[2022-12-24] MEDS: Divalproex Sodium 500 MG TABLET.DR 2000 MG PO (23:34)
[2022-12-25 03:23] VITALS: BP 157/81; PULSE 80; RESP 18; TEMP 37.1; O2SAT 97
[2022-12-25 08:00] VITALS: BP 149/90; PULSE 92; RESP 20; TEMP 37; O2SAT 96
[2022-12-25] MEDS: Docusate Sodium 100 MG CAPSULE PO (09:35)
[2022-12-25] MEDS: Ferrous Sulfate 300 MG/5 ML LIQUID PO ×2 (09:35→17:37)
[2022-12-25] MEDS: 0.9 % Sodium Chloride Flush 3 ML SYRINGE IVFLUSH ×3 (09:36→23:51)
[2022-12-25] MEDS: Buprenorphine/Naloxone 2/0.5mg FILM 1 FILM SUBLINGUAL ×2 (09:36→20:18)
[2022-12-25 12:00] VITALS: BP 141/80; PULSE 116; RESP 20; TEMP 36.2; O2SAT 94
--- NOTE | 2022-12-25 14:20 | P.PNIM_ITS ---
Subjective Subjective Date of Service: 12/25/22 Interval History: continues to have acceptable sats on room air. Productive cough impr Review of Systems Denies chest pain Denies shortness of breath Denies nausea vomiting diarrhea Denies fever chills Physical Exam Vital Signs: Vital Signs: Last Vital Signs Temp 97.2 F 12/25/22 12:00 Pulse 116 H 12/25/22 12:00 Resp 20 12/25/22 12:00 BP 141/80 H 12/25/22 12:00 Pulse Ox 94 12/25/22 12:00 O2 Del Method 12/25/22 12:00 O2 Flow Rate 3 12/22/22 04:00 FiO2 80 12/15/22 19:00 Oxygen Flow Rate 4 12/19/22 13:00 BMI result Body Mass Index 32.3 Const: Other: Awake alert no acute distress Resp: Other: Diminished left side; no rales rhonchi or wheezes throughout Cardio: Other: No S4; positive S1-S2; no S3 murmurs rubs or gallops GI: Other: Soft nontender nondistended normoactive bowel sounds Extrem: Other: No edema bilaterally Objective Data Active Medications Acetaminophen (Acetaminophen 325 Mg Tablet) 650 mg PO Q6H PRN PRN Reason: Pain, Mild (Pain Scale 1-3) Last Admin: 12/24/22 23:36 Dose: 650 mg Documented By: ZHANE Amoxicillin/Clavulanate Potassium (Amoxicillin/Potassium Clav 875 Mg Tablet) 875 mg PO Q12H [facility] Bisacodyl (Bisacodyl 5 Mg Tablet.) 5 mg PO BEDTIME [facility] Last Admin: 12/24/22 23:34 Dose: 5 mg Documented By: ZHANE Buprenorphine/Naloxone (Buprenorphine/Naloxone 2/0.5mg Film) 1 film SUBLINGUAL DAILY [facility] Last Admin: 12/25/22 09:36 Dose: 1 film Documented By: ALFONZO Buprenorphine/Naloxone (Buprenorphine/Naloxone 2/0.5mg Film) 1 film SUBLINGUAL BEDTIME [facility] Last Admin: 12/24/22 23:34 Dose: 1 film Documented By: ZHANE Divalproex Sodium (Divalproex Sodium 500 Mg Tablet.) 2,000 mg PO BEDTIME [facility] Last Admin: 12/24/22 23:34 Dose: 2,000 mg Documented By: ZHANE Docusate Sodium (Docusate Sodium 100 Mg Capsule) 100 mg PO DAILY [facility] Last Admin: 12/25/22 09:35 Dose: 100 mg Documented By: ALFONZO Enoxaparin Sodium (Enoxaparin Sodium 40 Mg/0.4 Ml Syringe) 40 mg SUBCUT Q24H [facility] Last Admin: 12/04/22 19:49 Dose: Not Given Documented By: JOHN Non-Admin Reason: Patient Refused Ferrous Sulfate (Ferrous Sulfate 300 Mg/5 Ml Liquid) 300 mg PO BIDWM [facility] Last Admin: 12/25/22 09:35 Dose: 300 mg Documented By: ALFONZO Hydromorphone HCl (Hydromorphone Hcl 0.5 Mg/0.5 Ml Syringe) 0.5 mg IVPUSH Q4H PRN PRN Reason: Breakthrough Pain Last Admin: 12/15/22 21:22 Dose: 0.5 mg Documented By: ALVIN Naloxone HCl (Naloxone Hcl 0.4 Mg/Ml Vial) 0.04 mg IVPUSH Q5M PRN PRN Reason: Respiratory Rate < 10 Oxycodone HCl (Oxycodone Hcl Immed Release 5 Mg Tablet) 5 mg PO Q4H PRN PRN Reason: Pain, Moderate (Pain Scale 4-6 Oxycodone HCl (Oxycodone Hcl Immed Release 5 Mg Tablet) 10 mg PO Q4H PRN PRN Reason: Pain, Severe (Pain Scale 7-10) Last Admin: 12/23/22 06:14 Dose: 10 mg Documented By: CHARLI Polyethylene Glycol (Polyethylene Glycol 3350 17 Gm Powd.Pack) 17 gm PO DAILY PRN PRN Reason: Constipation Sodium Chloride (0.9 % Sodium Chloride Flush 3 Ml Syringe) 3 ml IVFLUSH QSHIFT [facility] Last Admin: 12/25/22 09:36 Dose: 3 ml Documented By: ALFONZO Labs 12/20/22 06:31 12/20/22 06:31 Assessment and Plan (1) Hydropneumothorax: Status: Acute (2) SIMBA (acute kidney injury): Status: Acute Plan This is a 42yo M with OUD on Suboxone (abstinent of heroin x 2yr), recently incarcerated x8mo, presenting after 2 weeks of worsening cough and dyspnea- Admitted for severe sepsis with hypoxia and SIMBA due to PNA, found to have multifocal cavitary PNA, complicated by hydropneumothorax, now status post placement of chest tube in ICU, underwent chemical decortication. Chest 2 removed without issue 12/19. 1.Hydropneumothorax status post left-sided chest tube and chemical decortication -no issues after chest tube removal - sats acceptable on room air -as per ID. .. Augmentin 875 b.i.d. x4 weeks(LD 01/12/23) - for DC to mild time respite in a.m. 2.Severe sepsis due to multifocal cavitary PNA(Resolved) -Augmentin as per ID 3.Acute/Chronic blood loss anemia -hemoglobin stable after 2 units PRBCs -follow daily CBCs 4.SIMBA -resolved with volume repletion -follow renals/divalents 5.Opioid dependence.? -Suboxone Ambulatory Full code DISPO Plan for safe disposition Time Spent With Patient Time: Total time managing care of this patient today ____ minutes. Quality Stroke Does the patient have a stroke diagnosis?: No VTE Prior VTE?: No VTE Risk Level:: Medical - moderate - high VTE Device Contraindication: Treatment Not Indicated VTE Drug Contraindication: N/A - Med Ordered
[2022-12-25 15:13] VITALS: BP 127/75; PULSE 106; RESP 20; TEMP 36.1; O2SAT 95
[2022-12-25 20:00] VITALS: BP 149/92; PULSE 85; RESP 18; TEMP 36.9; O2SAT 97
[2022-12-25] MEDS: Divalproex Sodium 500 MG TABLET.DR 2000 MG PO (20:19)
[2022-12-25] MEDS: oxyCODONE HCl Immed Release 5 MG TABLET 10 MG PO (23:50)
[2022-12-26] VITALS: BP 125/76; PULSE 95; RESP 20; TEMP 36.1; O2SAT 96
[2022-12-26 04:00] VITALS: BP 125/76; PULSE 95; RESP 20; TEMP 36.1; O2SAT 96
[2022-12-26 08:00] VITALS: BP 117/74; PULSE 112; RESP 18; TEMP 36.4; O2SAT 96
[2022-12-26] MEDS: Ferrous Sulfate 300 MG/5 ML LIQUID PO (10:46)
[2022-12-26] MEDS: Buprenorphine/Naloxone 2/0.5mg FILM 1 FILM SUBLINGUAL (10:46)
[2022-12-26] MEDS: 0.9 % Sodium Chloride Flush 3 ML SYRINGE IVFLUSH (10:47)
[2022-12-26] MEDS: Docusate Sodium 100 MG CAPSULE PO (10:47)
--- NOTE | 2022-12-26 11:45 | PM.DS ---
DS: Providers Provider Date of Service: 12/26/22 Date of admission: 11/26/22 18:35 Primary care physician: None Physician Consults: 11/26/22 23:17 Consult to Infectious Diseases Routine Consulting Provider: Karla Christie Reason for consultation: cavitory lesion, IVDU Has provider been notified: No 11/27/22 05:23 Consult to Pulmonology Routine Consulting Provider: Arnaud Sanabria Reason for consultation: cavitary lesion 11/30/22 05:07 Consult to Pulmonology Routine Consulting Provider: Javier Mcdowell Reason for consultation: pneumothorax 11/30/22 15:24 Consult to Thoracic Surgery Routine Consulting Provider: Luis Alberto Wilkinson Reason for consultation: empayema vs large effusion Has provider been notified: No 12/10/22 08:33 Consult to Hematology / Oncology Routine Consulting Provider: [facility] Oncology/Hematology Reason for consultation: elevated inr/anemia Has provider been notified: No DS: Diagnosis Discharge Diagnosis (1) Hydropneumothorax: Status: Acute (2) SIMBA (acute kidney injury): Status: Acute (3) Substance use disorder: Status: Acute (4) Acute blood loss anemia: Status: Acute (5) Cavitary pneumonia: Status: Acute (6) Sepsis with acute hypoxic respiratory failure: Status: Acute DS: Summary Hospital Course Hospital Course: from admission H+P by hospitalist ANURAG Rossi, 11/26/22: Pt is a 42-year-old male with a PMH significant for?bipolar disorder, PTSD, anxiety, and agoraphobia who presents to the ED with SOB and productive cough x2 weeks. Patient's symptoms began a little over two weeks ago as an URI with head cold and stuffiness that progressed into the chest with a cough occasionally productive of yellowish sputum. Last week pt noted a sharp increase in SOB with exertion and at rest, and developed pleuritic chest pain with inspiration, particularly on his left side.? Patient states that he has not been eating or drinking much the past few days due to not feeling well. Denies fever, chills, nausea, vomiting.? No palpitations.? Patient denies abdominal pain. In the ED patient was tachycardic, tachypneic, and hypotensive. Labs were significant for leukocytosis of 43.5 with a left shift, H&H of 12.6/39.6, creatinine of 2.80 (baseline unknown), lactic acid of 3.1. VBG with pH of 7.51 CXR showed left upper lobe consolidation/infiltrate. CT?of chest pending. EKG demonstrated sinus tachycardia with no evidence of ST elevations or depressions. Pt was treated with severe sepsis bundle with IVF, azithromycin, and ceftriaxone. Pt will be admitted to the hospital to telemetry for treatment of acute hypoxic respiratory failure in setting of community-acquired pneumonia. and from my addendum from 11/26/22: 42yo M with OUD on Suboxone, abstinent of heroin x 2yr, presenting after 2 weeks of coughing and worsening dyspnea.? Found to have severe sepsis with leukocytosis/bandemia, tachycardia, and tachypnea and SIMBA [BUN/Cr 29/2.8], lactate 3.1.? CXR with SEBASTIAN PNA.? On exam, has inspiratory crackles on L and is currently on HFNC saturating 97% on 40% fiO2 @ 30 Lpm.? Got 3L IV fluids, ceftriaxone, and azithromycin. Plan admit to [facility] for acute respiratory failure due to PNA with severe sepsis. This 42yo M with OUD on Suboxone (abstinent of heroin x 2yr), recently incarcerated x8mo, presenting after 2 weeks of worsening cough and dyspnea was admitted for severe sepsis with hypoxia and SIMBA due to multifocal cavitary PNA, complicated by hydropneumothorax. Thoracic Surgery was consulted and he underwent chest tube placement and chemical decortication in the ICU. Chest tubes were removed on 12/19/22. He was treated with broad-spectrum antibiotics but was not bacteremic. ID was consulted and he was transitioned eventually to amoxicillin-clavulanate 875-125 mg bid for 4 weeks, with last day 01/12/23. He was transfused 2 units of pRBCs for acute/chronic blood loss anemia. SIMBA resolved with volume repletion and hypoxia resolved with definitive treatment of the pneumonia and hydropneumothorax. OUD was managed with Suboxone. He was discharged to [facility] respite care. Time Spent with Patient Time attestation: Total time managing care of this patient today __45_ minutes. Discharge coordination time: Greater than 30 minutes Quality: Safe Use of Opioids Does Pt have an Active Cancer Diagnosis on the Problem List?: No Quality: Stroke Does the patient have a stroke diagnosis?: No Physical Exam Vital Signs: Vital Signs: Last Vital Signs Temp 97.6 F 12/26/22 08:00 Pulse 112 H 12/26/22 08:00 Resp 18 12/26/22 08:00 BP 117/74 12/26/22 08:00 Pulse Ox 96 12/26/22 08:00 O2 Del Method 12/26/22 08:00 O2 Flow Rate 3 12/22/22 04:00 FiO2 80 12/15/22 19:00 Oxygen Flow Rate 4 12/19/22 13:00 BMI result Body Mass Index 32.3 Const: Other: Gen: in no acute distress HEENT: sclera anicteric, moist mucus membranes Neck: supple Lungs: clear to auscultation bilaterally Heart: regular rate and rhythm, no murmurs Abd: soft, non-tender, non-distended Ext: no edema Skin: warm/well-perfused Neuro: alert and oriented x3, no focal findings Psych: appropriate affect DS: Data Data Completed and Pending Completed studies during hospitalization [Text1]: Laboratory Results WBC 6.5 X10*3/uL (4.8-10.8) 12/20/22 06:31 RBC 2.83 X10*6/uL (4.60-5.80) L 12/20/22 06:31 Hgb 8.1 g/dl (14.0-18.0) L 12/20/22 06:31 Hct 26.2 % (42.0-52.0) L 12/20/22 06:31 MCV 92.6 fL (80.0-98.0) 12/20/22 06:31 MCH 28.6 pg (27.0-33.0) 12/20/22 06:31 MCHC 30.9 g/dl (31.0-36.0) L 12/20/22 06:31 RDW 15.9 % (11.0-16.0) 12/20/22 06:31 Plt Count 205 X10*3/uL (160-400) 12/20/22 06:31 MPV 9.3 fL (9.4-12.4) L 12/20/22 06:31 Immature Gran % (Auto) 1.0 % (0.0-0.4) H 12/12/22 06:21 Neut % (Auto) 56.4 % (45-73) 12/12/22 06:21 Lymph % (Auto) 25.2 % (20-40) 12/12/22 06:21 [place] % (Auto) 16.9 % (2-11) H 12/12/22 06:21 Eos % (Auto) 0.2 % (0-4) 12/12/22 06:21 Baso % (Auto) 0.3 % (0-2) 12/12/22 06:21 Lymph # (Auto) 2.6 X10*3/uL (1.2-4.9) 12/12/22 06:21 [place] # (Auto) 1.7 X10*3/uL (0.1-1.2) H 12/12/22 06:21 Eos # (Auto) 0.0 X10*3/uL (0.0-0.4) 12/12/22 06:21 Baso # (Auto) 0.0 X10*3/uL (0.0-0.2) 12/12/22 06:21 Abs Immat Gran (auto) 0.10 X10*3/uL (0.00-0.03) H 12/12/22 06:21 Absolute Neuts (auto) 5.7 x10*3/uL (2.0-8.3) 12/12/22 06:21 Absolute Nucleated RBC 0.000 X10*3/uL (0.0-0.012) 12/20/22 06:31 Nucleated RBC % (auto) 0.0 /100WBC (0.0-0.2) 12/20/22 06:31 Neutrophils % (Manual) 80 % (45-73) H 12/04/22 06:49 Band Neutrophils % 4 % (3-5) 12/04/22 06:49 Lymphocytes % (Manual) 5 % (20-40) L 12/04/22 06:49 Atypical Lymphs % (Man) 1 % (0-6) 12/01/22 05:02 Monocytes % (Manual) 10 % (2-11) 12/04/22 06:49 Metamyelocytes % 2 % 12/03/22 06:27 Myelocytes % 1 % 12/04/22 06:49 Promyelocytes % 1 % 02/03/23 07:21 Abs Neuts (Manual) 13.2 X10*3/uL (2.0-8.3) H 12/04/22 06:49 Lymphocytes # (Manual) 0.8 X10*3/uL (1.2-4.9) L 12/04/22 06:49 Atyp Lymphs # (Manual) 0.3 x10*3/uL 12/01/22 05:02 Monocytes # (Manual) 1.6 X10*3/uL (0.1-1.2) H 12/04/22 06:49 Metamyelocytes # 0.4 X10*3/uL 12/03/22 06:27 Myelocytes # 0.2 X10*/uL 12/04/22 06:49 Promyelocytes # 0.2 X10*3/uL 12/02/22 07:21 Smudge Cells PRESENT 12/01/22 05:02 Toxic Vacuolation PRESENT 12/01/22 05:02 Platelet Estimate SLIGHTLY DECREASED (NORMAL) 12/04/22 06:49 Plt Morphology Comment NORM 12/04/22 06:49 RBC Morphology NOTED 12/04/22 06:49 Polychromasia 1+ (0-2) /OIF 12/03/22 06:27 Hypochromasia 1+ (5-14) /OIF 12/04/22 06:49 Macrocytosis 1+ (5-14) /OIF 12/01/22 05:02 Spherocytes 1+ (0-2) /OIF 12/02/22 07:21 Target Cells 1+ (5-14) /OIF 12/04/22 06:49 Smear Tech's Comments VERIFIED 12/12/22 06:21 Smear Path Review 11/26/22 15:59 PT 15.1 SEC (10.0-13.1) H 12/15/22 06:48 INR 1.3 (0.9-1.1) H 12/15/22 06:48 APTT 30.3 SEC (26.0-36.4) 12/12/22 06:21 Fibrinogen 624 MG/DL (259-690) 12/10/22 08:16 D-Dimer High Sensitivty 5296 NG/ML 12/11/22 06:13 O2 Saturation 93.0 % 11/30/22 01:48 ABG pH at Pt Temp 7.36 (7.35-7.45) 11/30/22 01:48 ABG pCO2 at Pt Temp 54 mmHg (32-45) H 11/30/22 01:48 ABG pO2 at Pt Temp 70 mmHg (83-108) L 11/30/22 01:48 ABG HCO3 31 mmol/L (22-26) H 11/30/22 01:48 ABG Base Excess (Actual) 4.3 mmol/L 11/30/22 01:48 VBG pH 7.37 (7.32-7.43) 12/02/22 07:24 VBG pCO2 63 mmHg 12/02/22 07:24 VBG pO2 183 mmHg 12/02/22 07:24 VBG HCO3 37 mmol/L (22-26) H 12/02/22 07:24 VBG O2 Saturation 100.0 % 12/02/22 07:24 VBG Base Excess 10.0 mmol/L 12/02/22 07:24 Sodium 136 mmol/L (135-145) 12/20/22 06:31 Potassium 3.5 mmol/L (3.3-5.1) 12/20/22 06:31 Chloride 98 mmol/L (96-108) 12/20/22 06:31 Carbon Dioxide 34 mmol/L (22-29) H 12/20/22 06:31 Anion Gap 8 (12-20) L 12/20/22 06:31 BUN 9 mg/dL (9-16) 12/20/22 06:31 Creatinine 0.56 mg/dL (0.5-1.4) 12/20/22 06:31 Estim Creat Clear Calc 224.4 12/20/22 06:31 Estimated GFR > 60 12/20/22 06:31 POC Glucose 155 mg/dL (60-115) H 11/30/22 09:49 Random Glucose 93 mg/dL (60-115) 12/20/22 06:31 Lactic Acid 3.1 mmol/L (0.5-2.0) H* 11/26/22 16:13 Lactic Acid F/U @ 2Hr 4.0 mmol/L (0.5-2.0) H* 11/26/22 18:34 Lactic Acid F/U @ 4Hr 3.4 mmol/L (0.5-2.0) H* 11/26/22 21:03 Calcium 8.4 mg/dL (8.4-10.2) 12/20/22 06:31 Phosphorus 4.3 mg/dL (2.7-4.5) 12/02/22 07:21 Magnesium 2.1 mg/dL (1.6-2.6) 12/02/22 07:21 Iron 17 mcg/dL (45-160) L 12/08/22 07:40 TIBC 116 mcg/dL (228-428) L 12/08/22 07:40 % Saturation 15 % (15-50) 12/08/22 07:40 Unsat Iron Binding 99 ug/dL 12/08/22 07:40 Ferritin 414 ng/mL (20-250) H 12/08/22 07:40 Total Bilirubin 0.3 mg/dL (0.0-1.0) 12/10/22 06:01 Direct Bilirubin 0.2 mg/dL (0.0-0.5) 12/10/22 06:01 AST 25 U/L (5-37) 12/10/22 06:01 ALT 11 U/L (0-40) 12/10/22 06:01 Alkaline Phosphatase 47 U/L (39-117) 12/10/22 06:01 Lactate Dehydrogenase 400 U/L (118-273) H 11/30/22 16:45 Troponin I High Sens < 3.5 ng/L (<3.5-35.0) 11/26/22 15:59 B-Natriuretic Peptide 60 pg/mL (<100) 11/26/22 15:59 Total Protein 7.3 g/dL (6.5-8.0) 12/10/22 06:01 Albumin 1.6 g/dL (3.5-5.0) L 12/10/22 06:01 Vitamin B12 1326 pg/mL (200-900) H 12/08/22 07:40 Folate 6.7 ng/mL (> or = 4.0) 12/08/22 07:40 Procalcitonin 2.01 ng/mL 11/28/22 06:57 Urine Color Dark Yellow 11/27/22 08:50 Urine Appearance Cloudy 11/27/22 08:50 Urine pH 5.0 (5.0-9.0) 11/27/22 08:50 Ur Specific [place] 1.020 (1.005-1.025) 11/27/22 08:50 Urine Protein 30 (1+) mg/dL (Neg-Trace) H 11/27/22 08:50 Urine Glucose (UA) Negative mg/dL (Negative) 11/27/22 08:50 Urine Ketones Trace mg/dL (Negative) 11/27/22 08:50 Urine Blood Negative (Negative) 11/27/22 08:50 Urine Nitrite Negative (Negative) 11/27/22 08:50 Ur Leukocyte Esterase Trace (Negative) H 11/27/22 08:50 Urine RBC 0-2 /HPF (0-2) 11/27/22 08:50 Urine WBC 0-5 /HPF (0-5) 11/27/22 08:50 Ur Squamous Epith Cells 6-10 /HPF (0-2) 11/27/22 08:50 Urine Bacteria None Seen (None Seen) 11/27/22 08:50 Hyaline Casts 6-10 /LPF (0-2) 11/27/22 08:50 Granular Casts Present 11/27/22 08:50 Pleural WBC 3.191 X10*3/uL 11/30/22 18:30 Pleural RBC 0.003 X10*3/uL 11/30/22 18:30 Pleural Neutrophils 96 % 11/30/22 18:30 Pleural Monocytes 4 % 11/30/22 18:30 Pleural Total Protein 4.3 11/30/22 18:30 Pleural Albumin 1.8 GM/DL 11/30/22 18:30 Pleural LDH 1267 11/30/22 18:30 Pleural Glucose 69 11/30/22 18:30 Pleural Amylase 16 11/30/22 18:30 Nasal Screen MRSA (PCR) NEGATIVE (Negative) 12/23/22 11:09 Nasal S. aureus Screen NEGATIVE (Negative) 12/23/22 11:09 Nasal MRSA/S.aureus Interp SEE NOTE 12/23/22 11:09 Stool Occult Blood NEGATIVE (NEGATIVE) 12/18/22 20:35 Vancomycin Trough 4.6 mcg/mL (10.0-20.0) L 12/06/22 21:09 Random Vancomycin 11.9 mcg/mL (15-20) L 12/04/22 21:17 Urine Opiates Screen Not Detected (Not Detect) 11/26/22 20:30 Urine Fentanyl Screen Not Detected (Not Detect) 11/26/22 20:30 Ur Barbiturates Screen Not Detected (Not Detect) 11/26/22 20:30 Ur Phencyclidine Scrn POSITIVE (Not Detect) H 11/26/22 20:30 Ur Amphetamines Screen Not Detected (Not Detect) 11/26/22 20:30 U Benzodiazepines Scrn Not Detected (Not Detect) 11/26/22 20:30 Urine Cocaine Screen Not Detected (Not Detect) 11/26/22 20:30 U Marijuana (THC) Screen Not Detected (Not Detect) 11/26/22 20:30 HIV 1&2 Ab/P24 Ag 4thGn Nonreactive (Nonreactive) 11/26/22 18:34 Influenza Type A (PCR) NEGATIVE (Negative) 11/26/22 15:41 Influenza Type B (PCR) NEGATIVE (Negative) 11/26/22 15:41 Ur L.pneumophila Ag Not Detected (Not Detected) 11/26/22 21:36 RSV RNA Qual (PCR) NEGATIVE (Negative) 11/26/22 15:41 SARS-CoV-2 RNA (RT-PCR) NEGATIVE (Negative) 11/26/22 15:41 Ur Strep pneumoniae Ag Not Detected (Not Detected) 11/26/22 21:36 TB Test (T-Spot) Com Negative (Negative) 11/29/22 07:55 TB Test Nil Control Passed 11/29/22 07:55 TB Test Panel A 0 11/29/22 07:55 TB Test Panel B 0 11/29/22 07:55 TB Test Positive Cntrl Passed 11/29/22 07:55 Ref Lab Test Result SEE NOTE 11/30/22 09:02 Blood Type A Negative 12/16/22 11:40 Antibody Screen NEGATIVE 12/16/22 11:40 Crossmatch See Detail 12/16/22 11:40 Impressions Chest Tube Insertion 12/06/22 15:36 IMPRESSION: Successful insertion of a 5 [place] APD catheter under CT fluoroscopic guidance with its tip in the left upper lobe air-fluid level collection. Chest X-Ray 12/19/22 07:30 IMPRESSION: 1. Stable postsurgical changes left chest. No pneumothorax. 2. Left subcutaneous emphysema decreased. 3. Right lung clear. Chest CT 12/20/22 14:51 IMPRESSION: 1. Similar peripheral airspace consolidation in the left lung most confluent in the left upper lobe and lung apex with cavitation. 2. Small amount of left pleural fluid, decreased in size in the interval. 3. New subcutaneous edema and swelling of the left serratus anterior and adjacent soft tissues. No appreciable loculated fluid collection identified in the left chest wall. 4. Interval removal of left apical pigtail drain. Labs on day of discharge: Preliminary micro results at discharge 12/15/22 15:45 Fungal Identification - Preliminary Pleural Fluid No growth after 1 week. 12/15/22 15:50 Fungal Identification - Preliminary Lung - Pleura,Lt Lung No growth after 1 week. 11/30/22 18:30 Fungal Identification - Preliminary Pleural Fluid No growth after 3 weeks. Discharge Plan Discharge Anticipated Discharge Date/Time: 12/26/22 11:39 Patient Disposition: Xfer Other Discharge Diagnosis: Hydropneumothorax status post left-sided chest tube and chemical decortication Severe sepsis due to multifocal cavitary PNA(Resolved) Acute/Chronic blood loss anemia SIMBA Opioid dependence Referrals: Physician,None [Primary Care Provider] - 1 Week Discharge Medications: New ferrous sulfate 300 mg (60 mg iron)/5 mL Liquid 300 mg PO BIDWM Qty: 300 0RF amoxicillin-pot clavulanate 875-125 mg Tablet 875 mg PO Q12H Qty: 36 0RF oxycodone 5 mg Tablet 10 mg PO Q4H PRN (Reason: Pain, Severe (Pain Scale 7-10)) Qty: 18 0RF Rx Instructions: Partial Fill upon patient request. buprenorphine-naloxone [Suboxone] 2-0.5 mg Film 1 film sublingual DAILY Qty: 1 0RF buprenorphine-naloxone [Suboxone] 2-0.5 mg Film 1 film sublingual BEDTIME Qty: 1 0RF Continued cetirizine 10 mg Tablet 10 mg PO BEDTIME PRN (Reason: Allergy Symptoms) divalproex 500 mg tablet,delayed release (DR/EC) 4 tab PO BEDTIME docusate sodium 100 mg Capsule 100 mg PO BEDTIME bisacodyl 5 mg Tablet,Delayed Release (Dr/Ec) 5 mg PO BEDTIME Discontinued ibuprofen 800 mg Tablet 800 mg PO Q6H PRN (Reason: Back Pain) olanzapine 5 mg tablet 2 tab PO BEDTIME mirtazapine 45 mg tablet 1 tab PO BEDTIME prazosin 2 mg Capsule 2 mg PO BEDTIME buprenorphine-naloxone [Suboxone] 8-2 mg Film 1 film BUCCAL BEDTIME buprenorphine-naloxone [Suboxone] 12-3 mg Film 0.5 film BUCCAL TID@0600,1000,1400 Rx Instructions: QID@0600,1000,1400,1800 buprenorphine-naloxone [Suboxone] 12-3 mg film 0.5 strip sublingual DAILY@1800 Discharge Orders: Discharge Order (Routine); Ordered 12/26/22 Ordered By: Bianca Zuluaga Diet: Advance to usual diet Activity on Discharge: As tolerated Stand Alone Forms: Patient Portal Discharge page Care Plan Goals: recovery from hospitalization Health Concerns: Hydropneumothorax status post left-sided chest tube and chemical decortication Severe sepsis due to multifocal cavitary PNA(Resolved) Acute/Chronic blood loss anemia SIMBA Opioid dependence Plan of Treatment: transfer to respite care at [facility] take Augmentin 2x a day until 01/12/23 take iron as prescribed take Suboxone establish primary care provider as soon as possible Assessment: See Discharge Summary.
[2022-12-26 12:00] VITALS: BP 122/74; PULSE 94; RESP 18; TEMP 36.7; O2SAT 98
[2022-12-26 12:01] LABS: COVID-19 Test Negative (Negative); IDNOW Serial# 16C4AD1C
[2022-12-26 13:00] VITALS: O2SAT 98
--- NOTE | 2022-12-26 14:53 | MHC.CM.PN ---
DP: PT HAS BEEN MEDICALLY CLEARED FOR DC TO [facility]. RN AWARE. RESPITE CONTACT ROX[facility] TREVINO AND REQUESTS A 4 PM TRANSFER. MED SCRIPTS HAVE BEEN SENT VIA FAX TO [facility] AT [phone] [facility] PT IS AGREEABLE AND LYFT TRANSPORT ARRANGED FOR 4 PM. DAMEON AWARE.
== END 2022-12-26 15:51 | disposition other institution (70) | DRG 710 ==
LOC: HO.ED 17:56 → HO.EDOVER 18:46 → HO.IMC 20:48 → HO.ICU 11-30 16:18 → HO.IMC 12-01 10:39
PROVIDERS: Hospitalist; Internal Medicine; Internal Medicine Medical Oncology; Internal Medicine Pulmonary Disease; Nurse Practitioner Acute Care; Nurse Practitioner Family; Physician Assistant; Physician Assistant Medical; Physician Assistant Surgical; Radiology Diagnostic Radiology; Student in an Organized Health Care Education/Training Program; Surgery; Admitting Provider Student in an Organized Health Care Education/Training Program; Emergency Provider Internal Medicine; Visit Provider Family Medicine
PROC: 0BJ08ZZ Inspection of Tracheobronchial Tree, Via Natural or Artificial Opening Endoscopic (ICD-10-PCS; CPT 31622; principal; 2022-12-05 12:00)
PROC: 0W9B30Z Drainage of Left Pleural Cavity with Drainage Device, Percutaneous Approach (ICD-10-PCS; principal; 2022-12-06 13:30)
PROC: 0BNL4ZZ Release Left Lung, Percutaneous Endoscopic Approach (ICD-10-PCS; principal; 2022-12-15 14:00)
DX: A41.9 Sepsis, unspecified organism (principal); J96.01 Acute respiratory failure with hypoxia; B37.1 Pulmonary candidiasis; N17.0 Acute kidney failure with tubular necrosis; J86.9 Pyothorax without fistula; J91.8 Pleural effusion in other conditions classified elsewhere; J15.4 Pneumonia due to other streptococci; D62 Acute posthemorrhagic anemia; E88.09 Other disorders of plasma-protein metabolism, not elsewhere classified; J94.8 Other specified pleural conditions; R65.20 Severe sepsis without septic shock; B95.62 Methicillin resistant Staphylococcus aureus infection as the cause of diseases classified elsewhere; J98.4 Other disorders of lung; E66.9 Obesity, unspecified; F11.20 Opioid dependence, uncomplicated; R04.2 Hemoptysis; F31.9 Bipolar disorder, unspecified; F43.10 Post-traumatic stress disorder, unspecified; Z20.822 Contact with and (suspected) exposure to COVID-19; Z68.32 Body mass index [BMI] 32.0-32.9, adult; Z87.891 Personal history of nicotine dependence; Z88.8 Allergy status to other drugs, medicaments and biological substances; Z79.899 Other long term (current) drug therapy
CPT/HCPCS: 0241U; 32551; 36415; 36600; 71045; 71046; 71250; 80048; 80053; 80076; 80202; 80307; 81001; 82040; 82042; 82150; 82247; 82272; 82565; 82607; 82728; 82746; 82803; 82945; 82947; 83540; 83605; 83615; 83735; 83880; 84075; 84100; 84145; 84155; 84157; 84450; 84460; 84484; 85007; 85014; 85018; 85025; 85027; 85379; 85384; 85610; 85730; 86481; 86850; 86900; 86901; 86923; 87040; 87070; 87073; 87102; 87116; 87147; 87205; 87206; 87389; 87449; 87635; 87640; 87641; 87899; 88112; 88305; 88312; 89051; 92950; 93005; 93306; 94640; 96361; 96374; 96375; 99152; 99285; C1729; J0131; J0456; J0696; J1040; J1170; J1650; J2270; J2405; J2543; J2795; J2930; J2997; J3010; J3370; J3371; J3430; P9016; Q9957

== ENCOUNTER 2023-01-18 12:55 | Emergency (ER) | payer MEDICAID, SELFPAY ==
--- NOTE | ~2023-01-18 | XR_ITS ---
EXAMINATION: XR CHEST CLINICAL INFORMATION: Right-sided chest pain. History of pneumonia. COMPARISON: CT chest 12/20/2022. Chest x-ray 12/19/2022. TECHNIQUE: 2 views of the chest were obtained. FINDINGS: There is loss of left lung volume with chronic parenchymal scarring left upper lobe and left lower lobe. The right lung is expanded and clear. Heart size and pulmonary vascularity is normal. No gross bony abnormality seen. XR/XR chest 2V IMPRESSION: Chronic left upper lobe and left lower lobe parenchymal opacities with loss of left lung volume but no shift seen. The right lung is clear.
[2023-01-18 13:02] VITALS: BP 137/93; PULSE 100; RESP 18; TEMP 37; O2SAT 97; BMI 33.0
--- NOTE | 2023-01-18 13:09 | ED.GENADULT ---
HPI - General Adult General Chief complaint: General Medical Stated complaint: chest pain Related Data Home Medications Medication Instructions Recorded Confirmed No Known Home Meds 04/30/23 05/01/23 Allergies Allergy/AdvReac Type Severity Reaction Status Date / Time bee pollen [bee stings] Allergy Anaphylaxis Verified 05/01/23 13:49 quetiapine [From Seroquel] Allergy Chest Pain Verified 05/01/23 13:49 [facility] Past Medical History Medical History Acute blood loss anemia SIMBA (acute kidney injury) Anxiety Bipolar 1 disorder Cavitary pneumonia Chest pain Elevated INR Hydropneumothorax Hypoalbuminemia Hypoxia Over weight Overweight Pleural effusion Pneumonia PTSD (post-traumatic stress disorder) Sepsis Sepsis with acute hypoxic respiratory failure Severe sepsis Substance use disorder Thrombocytopenia Social History Social History Household Members: Spouse and None Housing: House Unable to assess alcohol history related to: Unknown Alcohol intake: never Patient Tobacco Use Status: Former Tobacco user Smoked in Last 30 Days: Yes Use of substances other than those prescribed or required for medical reasons: Yes Substance Use Type: Crack/Cocaine and Heroin Advance Directives: No Advance Directives Information Provided: No service: No Current occupational status: disabled Physical Exam ED Vital Signs: Vital Signs - 24 hr 01/18/23 13:02 Temperature 98.6 F Pulse Rate 100 Respiratory Rate 18 Blood Pressure 137/93 H Pulse Oximetry 97 Oxygen Delivery Method Room Air BMI result Body Mass Index 33.0 Course Course Course Narrative: 42-year-old male presents for evaluation of right-sided chest pain. Worse with movement. He has a history of pneumonia and a KI and was admitted in October of this year. Plan for labs, chest x-ray. Patient is nontoxic appearing Medical Decision Making Lab Data 01/18/23 14:25 01/18/23 14:25 Labs: Lab Results 01/18/23 01/18/23 01/18/23 Range/Units 14:25 14:25 14:25 WBC 6.3 (4.8-10.8) X10*3/uL RBC 3.91 L D (4.60-5.80) X10*6/uL Hgb 10.9 L D (14.0-18.0) g/dl Hct 35.5 L D (42.0-52.0) % MCV 90.8 (80.0-98.0) fL MCH 27.9 (27.0-33.0) pg MCHC 30.7 L (31.0-36.0) g/dl RDW 15.7 (11.0-16.0) % Plt Count 109 L D (160-400) X10*3/uL MPV 9.3 L (9.4-12.4) fL Immature Gran % (Auto) 0.3 (0.0-0.4) % Neut % (Auto) 41.6 L (45-73) % Lymph % (Auto) 46.9 H (20-40) % [place] % (Auto) 10.2 (2-11) % Eos % (Auto) 0.8 (0-4) % Baso % (Auto) 0.2 (0-2) % Lymph # (Auto) 2.9 (1.2-4.9) X10*3/uL [place] # (Auto) 0.6 (0.1-1.2) X10*3/uL Eos # (Auto) 0.1 (0.0-0.4) X10*3/uL Baso # (Auto) 0.0 (0.0-0.2) X10*3/uL Abs Immat Gran (auto) 0.02 (0.00-0.03) X10*3/uL Absolute Neuts (auto) 2.6 (2.0-8.3) x10*3/uL Absolute Nucleated RBC 0.000 (0.0-0.012) X10*3/uL Nucleated RBC % (auto) 0.0 (0.0-0.2) /100WBC Sodium 138 (135-145) mmol/L Potassium 4.1 (3.3-5.1) mmol/L Chloride 106 (96-108) mmol/L Carbon Dioxide 27 (22-29) mmol/L Anion Gap 9 L (12-20) BUN 12 (9-16) mg/dL Creatinine 0.75 (0.5-1.4) mg/dL Estim Creat Clear Calc 169.3 Estimated GFR > 60 Random Glucose 83 (60-115) mg/dL Calcium 8.4 (8.4-10.2) mg/dL Total Bilirubin 0.4 (0.0-1.0) mg/dL AST 22 (5-37) U/L ALT 9 (0-40) U/L Alkaline Phosphatase 61 (39-117) U/L Total Protein 8.6 H (6.5-8.0) g/dL Albumin 3.0 L (3.5-5.0) g/dL Influenza Type A (PCR) NEGATIVE (Negative) Influenza Type B (PCR) NEGATIVE (Negative) RSV RNA Qual (PCR) NEGATIVE (Negative) SARS-CoV-2 RNA (RT-PCR) NEGATIVE (Negative) Discharge Plan Discharge Clinical Impression: Chest pain Patient Disposition: Elopement Prescriptions: No Action No Known Home Meds Interventions: ED Discharge Assessment Last Done: 01/18/23 14:45 Discharge Date/Time: 01/18/23 14:47
[2023-01-18 14:31] LABS: MANUAL DIFF FLAG NO
[2023-01-18 14:37] LABS: Basophils Percent Auto 0.2 % (0-2); Eosinophils Absolute Auto 0.1 X10*3/uL (0.0-0.4); Eosinophils Percent Auto 0.8 % (0-4); Hematocrit 35.5 % (42.0-52.0); Hemoglobin 10.9 g/dl (14.0-18.0); Imm Gran Abs Auto 0.02 X10*3/uL (0.00-0.03); Imm Gran Pct Auto 0.3 % (0.0-0.4); Lymphocytes Absolute Auto 2.9 X10*3/uL (1.2-4.9); Lymphocytes Percent Auto 46.9 % (20-40); Mean Corpuscular HGB Conc 30.7 g/dl (31.0-36.0); Mean Corpuscular Hemoglobin 27.9 pg (27.0-33.0); Mean Corpuscular Volume 90.8 fL (80.0-98.0); Mean Platelet Volume 9.3 fL (9.4-12.4); Monocytes Absolute Auto 0.6 X10*3/uL (0.1-1.2); Monocytes Percent Auto 10.2 % (2-11); Neutrophils Absolute Auto 2.6 x10*3/uL (2.0-8.3); Neutrophils Percent Auto 41.6 % (45-73); Red Blood Count 3.91 X10*6/uL (4.60-5.80); Red Cell Distribution Width 15.7 % (11.0-16.0); White Blood Count 6.3 X10*3/uL (4.8-10.8)
[2023-01-18 14:44] LABS: Platelet Count 109 X10*3/uL (160-400)
[2023-01-18 14:48] LABS: Alanine Aminotransferase 9 U/L (0-40); Alkaline Phosphatase 61 U/L (39-117); Anion Gap 9 (12-20); Aspartate Amino Transferase 22 U/L (5-37); Bilirubin Total 0.4 mg/dL (0.0-1.0); Blood Urea Nitrogen 12 mg/dL (9-16); Calcium 8.4 mg/dL (8.4-10.2); Carbon Dioxide 27 mmol/L (22-29); Chloride 106 mmol/L (96-108); Creatinine Clr Calc Pharmacy 169.3; Estimated Glomerular Filt Rate > 60; Glucose Random 83 mg/dL (60-115); Potassium 4.1 mmol/L (3.3-5.1); Sodium 138 mmol/L (135-145); Total Protein 8.6 g/dL (6.5-8.0)
[2023-01-18 15:12] LABS: Influenza A PCR NEGATIVE (Negative); Influenza B PCR NEGATIVE (Negative); Resp Syncy Virus RNA Qual PCR NEGATIVE (Negative); SARS COV2 PCR INHOUSE NEGATIVE (Negative)
== END 2023-01-18 14:47 | disposition left against medical advice (07) ==
PROVIDERS: Physician Assistant; Emergency Provider Emergency Medicine
DX: R07.9 Chest pain, unspecified (principal); Z20.822 Contact with and (suspected) exposure to COVID-19; Z20.828 Contact with and (suspected) exposure to other viral communicable diseases; Z87.01 Personal history of pneumonia (recurrent); F11.20 Opioid dependence, uncomplicated; Z79.899 Other long term (current) drug therapy
CPT/HCPCS: 0241U; 36415; 71046; 80053; 85025; 99282; 99283

== ENCOUNTER 2023-04-29 18:12 | Emergency (ER) | payer MEDICAID, SELFPAY ==
[2023-04-29 18:25] VITALS: BP 137/97; PULSE 97; RESP 18; TEMP 36.9; O2SAT 96; BMI 32.7
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
--- NOTE | 2023-04-29 18:44 | PC.NURSE ---
pt is alert and oriented x 3, compliant with staff - calm and cooperative at this time, pt requesting to use phone. pt requested PO which was given to him. labs and urine has been ordered to be performed by a tech. awaiting to be seen by a provider. will continue to monitor.
--- NOTE | 2023-04-29 18:56 | ED.GENADULT ---
HPI - General Adult General Chief complaint: Psychiatric Symptoms Stated complaint: SECT 12: SI, IN [employer] CUSTODY PER EMS Time Seen by Provider: 04/29/23 18:33 Source: patient, RN notes reviewed and old records reviewed Mode of arrival: EMS Limitations: no limitations History of Present Illness HPI narrative: 43-year-old male past medical history significant for bipolar disorder presents for evaluation of suicidal ideation Patient reports ?my girl left me. ? Apparently the police were called as he was attempting to run into traffic Therefore the patient was brought here for suicidal ideation drainage the patient states that he remains suicidal. He also reports he has been off his medications for the last few months at least He reports that he has chronic back and shoulder and knee pain but no changes from baseline denies any new injuries He has no other complaints or concerns at this time Related Data Home Medications Medication Instructions Recorded Confirmed divalproex 500 mg tablet,extended 2,000 mg PO BEDTIME 04/29/23 04/29/23 release 24 hr mirtazapine 45 mg tablet 45 mg PO BEDTIME 04/29/23 04/29/23 olanzapine 10 mg tablet 10 mg PO BEDTIME 04/29/23 04/29/23 prazosin 5 mg capsule 5 mg PO BEDTIME 04/29/23 04/29/23 Allergies Allergy/AdvReac Type Severity Reaction Status Date / Time bee pollen [bee stings] Allergy Anaphylaxis Verified 04/29/23 18:24 quetiapine [From Seroquel] Allergy Chest Pain Verified 04/29/23 18:24 Review of Systems Constitutional: Constitutional: Reports as per HPI, Denies chills, Denies fatigue, Denies fever(s) and Denies headache(s) ENT: Denies headache(s) Cardiovascular: Cardiovascular: Denies chest pain and Denies dyspnea Respiratory: Respiratory: Denies cough and Denies dyspnea Gastrointestinal: Gastrointestinal: Denies abdominal pain, Denies constipation and Denies vomiting Genitourinary: Genitourinary: Denies difficulty urinating and Denies dysuria Neurologic: Denies headache(s) and Denies focal weakness Psychiatric: Psychiatric: Reports depression and Reports suicidal ideation Endocrine: Endocrine: Denies fatigue [facility] Past Medical History Medical History (Updated 04/29/23 @ 19:02 by Taurus Carroll) Acute blood loss anemia SIMBA (acute kidney injury) Anxiety Bipolar 1 disorder Cavitary pneumonia Chest pain Elevated INR Hydropneumothorax Hypoalbuminemia Hypoxia Over weight Overweight Pleural effusion Pneumonia PTSD (post-traumatic stress disorder) Sepsis Sepsis with acute hypoxic respiratory failure Severe sepsis Substance use disorder Thrombocytopenia Social History Social History Household Members: Spouse and None Housing: House Unable to assess alcohol history related to: Unknown Alcohol intake: never Patient Tobacco Use Status: Former Tobacco user Smoked in Last 30 Days: Yes Use of substances other than those prescribed or required for medical reasons: No Substance Use Type: Other Advance Directives: No Advance Directives Information Provided: No service: No Current occupational status: disabled Physical Exam ED Vital Signs: Vital Signs - 24 hr 04/29/23 18:25 04/30/23 06:26 Temperature 98.4 F 98.8 F Pulse Rate 97 68 Respiratory Rate 18 17 Blood Pressure 137/97 H 154/88 H Pulse Oximetry 96 98 Oxygen Delivery Method Room Air Room Air BMI result Body Mass Index 32.7 Const General: healthy appearing, comfortable, no acute distress, alert and awake Nutritional Appearance: well nourished Orientation/consciousness: patient oriented x3 HENMT Head: Yes normocephalic and Yes atraumatic Eyes Eyelids: Yes eyelids normal Conjunctivae: conjunctivae normal Sclerae: sclerae normal Corneas: corneas normal Pupils: Equal, round and reactive pupils present EOM: EOMs intact bilaterally Neck Neck: Yes full ROM Resp Effort & Inspection: normal respiratory effort, able to speak in complete sentences and not labored Cardio Rate: regular rate Rhythm: regular rhythm Skin General skin exam: no rashes or lesions noted and elasticity normal Neuro General: patient oriented x3 Cranial nerves: Yes Equal, round and reactive pupils present and Yes Bilaterally intact EOM present Cognition (Neuro): normal cognition Extrem Other: Moving all extremities well without any obvious deformities Course Course Course Narrative: 07: Physician observation continued I assumed care of this patient from my colleague, Dr. Milo French at 07:00 hours. Patient presented with suicidal ideation after his girlfriend broke up with him. Patient is on a Section 12. Urine tox screen was positive for cocaine. Patient's laboratory evaluation is pending draw. Patient has been off his medications for months, therefore no medications were ordered at this time. Patient is waiting for care team evaluation, therefore he will be kept in the emergency department Behavioral Health Unit until disposition can be determined. 1553: End physician observation The patient was evaluated by [facility] clinician and we discussed the patient presentation At this time, the patient does not meet criteria for Section 12 and the patient does not want voluntary inpatient treatment. The patient will be discharged home and patient will be followed by in as an outpatient. Medical Decision Making Medical Decision Making [facility] Narrative: 43-year-old male presents for evaluation of suicidal ideation. He apparently had time to run into traffic. He was not injured in any way. No acute somatic complaints. Will check basic labs, drug screen and the patient will be referred to the care team for his suicidal ideation medication noncompliance Differential Diagnosis Depression Bipolar disorder Suicidal ideation Medication noncompliance Substance abuse Lab Data 04/30/23 11:13 04/30/23 11:13 Labs: Lab Results 04/29/23 04/29/23 04/30/23 Range/Units 18:48 18:48 11:13 WBC 8.6 (4.8-10.8) X10*3/uL RBC 5.06 D (4.60-5.80) X10*6/uL Hgb 14.0 D (14.0-18.0) g/dl Hct 43.6 D (42.0-52.0) % MCV 86.2 (80.0-98.0) fL MCH 27.7 (27.0-33.0) pg MCHC 32.1 (31.0-36.0) g/dl RDW 13.8 (11.0-16.0) % Plt Count 243 D (160-400) X10*3/uL MPV 9.8 (9.4-12.4) fL Immature Gran % (Auto) 0.2 (0.0-0.4) % Neut % (Auto) 72.4 (45-73) % Lymph % (Auto) 23.4 (20-40) % [place] % (Auto) 3.5 (2-11) % Eos % (Auto) 0.2 (0-4) % Baso % (Auto) 0.3 (0-2) % Lymph # (Auto) 2.0 (1.2-4.9) X10*3/uL [place] # (Auto) 0.3 (0.1-1.2) X10*3/uL Eos # (Auto) 0.0 (0.0-0.4) X10*3/uL Baso # (Auto) 0.0 (0.0-0.2) X10*3/uL Abs Immat Gran (auto) 0.02 (0.00-0.03) X10*3/uL Absolute Neuts (auto) 6.2 (2.0-8.3) x10*3/uL Absolute Nucleated RBC 0.000 (0.0-0.012) X10*3/uL Nucleated RBC % (auto) 0.0 (0.0-0.2) /100WBC Sodium (135-145) mmol/L Potassium (3.3-5.1) mmol/L Chloride (96-108) mmol/L Carbon Dioxide (22-29) mmol/L Anion Gap (12-20) BUN (9-16) mg/dL Creatinine (0.5-1.4) mg/dL Estim Creat Clear Calc Estimated GFR Random Glucose (60-115) mg/dL Calcium (8.4-10.2) mg/dL Total Bilirubin (0.0-1.0) mg/dL AST (5-37) U/L ALT (0-40) U/L Alkaline Phosphatase (39-117) U/L Total Protein (6.5-8.0) g/dL Albumin (3.5-5.0) g/dL Urine Color Dark Yellow Urine Appearance Cloudy Urine pH 6.0 (5.0-9.0) Ur Specific [place] 1.025 (1.005-1.025) Urine Protein >=1000 (4+) H (Neg-Trace) mg/dL Urine Glucose (UA) 100 H (Negative) mg/dL Urine Ketones Trace (Negative) mg/dL Urine Blood Negative (Negative) Urine Nitrite Negative (Negative) Ur Leukocyte Esterase Negative (Negative) Urine RBC 6-10 H (0-2) /HPF Urine WBC 21-50 H (0-5) /HPF Ur Squamous Epith Cells 0-2 (0-2) /HPF Urine Bacteria None Seen (None Seen) Hyaline Casts >20 (0-2) /LPF Salicylates (15-30) mg/dL Urine Opiates Screen Not Detected (Not Detect) Urine Fentanyl Screen Not Detected (Not Detect) Acetaminophen (<30) mcg/mL Ur Barbiturates Screen Not Detected (Not Detect) Valproic Acid (50.0-100.0) mcg/mL Ur Phencyclidine Scrn Not Detected (Not Detect) Ur Amphetamines Screen Not Detected (Not Detect) U Benzodiazepines Scrn Not Detected (Not Detect) Urine Cocaine Screen POSITIVE H (Not Detect) U Marijuana (THC) Screen Not Detected (Not Detect) Ethyl Alcohol mg/dL 04/30/23 04/30/23 04/30/23 Range/Units 11:13 11:13 11:13 WBC (4.8-10.8) X10*3/uL RBC (4.60-5.80) X10*6/uL Hgb (14.0-18.0) g/dl Hct (42.0-52.0) % MCV (80.0-98.0) fL MCH (27.0-33.0) pg MCHC (31.0-36.0) g/dl RDW (11.0-16.0) % Plt Count (160-400) X10*3/uL MPV (9.4-12.4) fL Immature Gran % (Auto) (0.0-0.4) % Neut % (Auto) (45-73) % Lymph % (Auto) (20-40) % [place] % (Auto) (2-11) % Eos % (Auto) (0-4) % Baso % (Auto) (0-2) % Lymph # (Auto) (1.2-4.9) X10*3/uL [place] # (Auto) (0.1-1.2) X10*3/uL Eos # (Auto) (0.0-0.4) X10*3/uL Baso # (Auto) (0.0-0.2) X10*3/uL Abs Immat Gran (auto) (0.00-0.03) X10*3/uL Absolute Neuts (auto) (2.0-8.3) x10*3/uL Absolute Nucleated RBC (0.0-0.012) X10*3/uL Nucleated RBC % (auto) (0.0-0.2) /100WBC Sodium 140 (135-145) mmol/L Potassium 3.2 L D (3.3-5.1) mmol/L Chloride 109 H (96-108) mmol/L Carbon Dioxide 21 L (22-29) mmol/L Anion Gap 13 (12-20) BUN 7 L (9-16) mg/dL Creatinine 0.73 (0.5-1.4) mg/dL Estim Creat Clear Calc 176.4 Estimated GFR > 60 Random Glucose 140 H (60-115) mg/dL Calcium 9.2 D (8.4-10.2) mg/dL Total Bilirubin 0.5 (0.0-1.0) mg/dL AST 28 (5-37) U/L ALT 16 (0-40) U/L Alkaline Phosphatase 79 (39-117) U/L Total Protein 6.8 (6.5-8.0) g/dL Albumin 3.6 (3.5-5.0) g/dL Urine Color Urine Appearance Urine pH (5.0-9.0) Ur Specific [place] (1.005-1.025) Urine Protein (Neg-Trace) mg/dL Urine Glucose (UA) (Negative) mg/dL Urine Ketones (Negative) mg/dL Urine Blood (Negative) Urine Nitrite (Negative) Ur Leukocyte Esterase (Negative) Urine RBC (0-2) /HPF Urine WBC (0-5) /HPF Ur Squamous Epith Cells (0-2) /HPF Urine Bacteria (None Seen) Hyaline Casts (0-2) /LPF Salicylates < 5.0 L (15-30) mg/dL Urine Opiates Screen (Not Detect) Urine Fentanyl Screen (Not Detect) Acetaminophen < 17 (<30) mcg/mL Ur Barbiturates Screen (Not Detect) Valproic Acid < 12.5 L (50.0-100.0) mcg/mL Ur Phencyclidine Scrn (Not Detect) Ur Amphetamines Screen (Not Detect) U Benzodiazepines Scrn (Not Detect) Urine Cocaine Screen (Not Detect) U Marijuana (THC) Screen (Not Detect) Ethyl Alcohol < 10 mg/dL Discharge Plan Discharge Clinical Impression: Suicidal ideation, Bipolar disorder Patient Disposition: Still a Patient Prescriptions: No Action olanzapine 10 mg tablet 10 mg PO BEDTIME prazosin 5 mg capsule 5 mg PO BEDTIME divalproex 500 mg tablet extended release 24 hr 2,000 mg PO BEDTIME mirtazapine 45 mg tablet 45 mg PO BEDTIME Interventions: [place]-Suicide Risk Severity Scale Last Done: 04/30/23 04:57
--- NOTE | 2023-04-30 05:00 | PC.NURSE ---
Patient slept through the night, no distress observed/reported, refused blood draw, patient was upset and agitated when he was served with restraining order filed by his girl friend, care consult ordered/pending evaluation, med rec reviewed off his medication since January 2023, behavior unpredictable, VSS, will continue to monitor.
[2023-04-30 06:26] VITALS: BP 154/88; PULSE 68; RESP 17; TEMP 37.1; O2SAT 98
--- NOTE | 2023-04-30 09:49 | PC.NURSE ---
came out of room briefly, voicing concern for not being able to charge his ankle bracelet, reassured that we will be giving him documented proof that he was here, back to room and would not engage in any other subject, didn't answer when asked if he takes any meds regularly, currently laying in bed w nad
--- NOTE | 2023-04-30 11:14 | PC.NURSE ---
juve ayon contacted security and informed them that Tony had called his ex girlfriend and that she has a current restraining order against him pt asking for CARE team eval and he was informed that lack of bloodwork has delayed his eval, he allowed bloodwork and labs sent and pending, pt states he is illegally parked and needs to leave [facility]
--- NOTE | 2023-04-30 12:23 | PC.NURSE ---
pt asked to use the phone, I informed him that the PD had contacted security about him calling the ex girlfriend, the pt states that he called prior to being told about the restraining order, he stated that he would not be calling her and was given access to the phone
--- NOTE | 2023-04-30 16:13 | PC.NURSE ---
pt up for discharge: discussed this with pt who reports that they need to get some things from their car and then they may return. This RN confirmed pt discharge with CARE team. CARE team notified pt that he is approved for discharge and if he feels like he needs to return then he may return to the [facility]. At this point pt is aware that he is ready for discharge, belongings are returned to pt and he will be escorted outside.
== END 2023-04-30 16:18 | disposition home or self-care (01) ==
PROVIDERS: Emergency Provider Emergency Medicine Emergency Medical Services
DX: R45.851 Suicidal ideations (principal); F31.9 Bipolar disorder, unspecified; F43.10 Post-traumatic stress disorder, unspecified; F41.9 Anxiety disorder, unspecified; Z87.891 Personal history of nicotine dependence; Z91.148 Patient's other noncompliance with medication regimen for other reason
CPT/HCPCS: 36415; 80053; 80143; 80164; 80179; 80307; 81001; 85025; 87086; 99284; S9485

== ENCOUNTER 2023-04-30 18:20 | Emergency (ER) | payer MEDICAID, SELFPAY ==
[2023-04-30 18:33] VITALS: BP 132/86; PULSE 83; RESP 18; TEMP 36; O2SAT 98; BMI 28.1
--- NOTE | 2023-04-30 18:34 | ED.GENADULT ---
HPI - General Adult General Chief complaint: Psychiatric Symptoms Stated complaint: Crisis Time Seen by Provider: 04/30/23 20:32 Source: patient Mode of arrival: ambulatory Limitations: no limitations History of Present Illness HPI narrative: Patient comes emergency room complaining of suicidal ideation. Patient states that he was discharged from the hospital yesterday from the emergency room. He was told that if he had any recurrent signs or symptoms to return to the emergency room so here he is complaining of suicidal ideation. Patient complaining of being homeless. Denies using drugs or alcohol. Denies any current medical problems. Related Data Home Medications Medication Instructions Recorded Confirmed No Known Home Meds 04/30/23 04/30/23 Allergies Allergy/AdvReac Type Severity Reaction Status Date / Time bee pollen [bee stings] Allergy Anaphylaxis Verified 04/30/23 18:33 quetiapine [From Seroquel] Allergy Chest Pain Verified 04/30/23 18:33 Review of Systems Review of Systems: Constitutional : No Weight loss, No Fever, No Chills, No Night Sweats, No Fatigue, No Malaise ENT/Mouth : No Hearing loss, No Ear Pain, No Nasal Congestion, No Sinus Pain, No Hoarseness, No sore throat, No Rhinorrhea, No Swallowing Difficulty Eyes: No Eye Pain, No Swelling, No Redness, No Foreign Body, No Discharge, No Vision Changes Cardiovascular : No Chest Pain, No SOB, No Dyspnea on Exertion, No Orthopnea, No Edema, No Palpitations Respiratory : No Cough, No Sputum, No Wheezing, No Smoke Exposure, No Dyspnea Gastrointestinal : No Nausea, No Vomiting, No Diarrhea, No Constipation, No abdominal Pain, No Hematochezia, No Melena Genitourinary : no irregular bleeding, No Dysuria, No Urinary Frequency, No Hematuria, No Urinary Incontinence, No Urgency, No Flank Pain, No Urinary Flow Changes, No Hesitancy Musculoskeletal : No joint pain, No Myalgias, No Joint Swelling Skin : No Skin Lesions, No rash Neuro : No Weakness, No Numbness, No Paresthesias, No Loss of Consciousness, No Dizziness, No Headache Psych : Complaining of anxiety, depression, suicidal ideation Heme/Lymph: No Bruising, No Bleeding,No Lymphadenopathy Endocrine : No Polyuria, No Polydipsia, No Temperature Intolerance PMFSH Past Medical History Medical History Acute blood loss anemia SIMBA (acute kidney injury) Anxiety Bipolar 1 disorder Cavitary pneumonia Chest pain Elevated INR Hydropneumothorax Hypoalbuminemia Hypoxia Over weight Overweight Pleural effusion Pneumonia PTSD (post-traumatic stress disorder) Sepsis Sepsis with acute hypoxic respiratory failure Severe sepsis Substance use disorder Thrombocytopenia Social History Social History Household Members: Spouse and None Housing: House Unable to assess alcohol history related to: Unknown Alcohol intake: never Patient Tobacco Use Status: Former Tobacco user Substance Use Type: Other Advance Directives: No Advance Directives Information Provided: No service: No Current occupational status: disabled Physical Exam ED Vital Signs: Vital Signs - 24 hr 04/30/23 18:33 05/01/23 06:22 05/01/23 08:48 Temperature 96.8 F 99.0 F Pulse Rate 83 65 Respiratory Rate 18 17 16 Blood Pressure 132/86 140/83 H Pulse Oximetry 98 97 Oxygen Delivery Method Room Air Room Air BMI result Body Mass Index 28.1 Const Other: Appearance: Alert. Oriented X3. No acute distress. Eyes: Pupils equal, round and reactive to light. ENT: Pharynx normal. Neck: Normal inspection. Neck supple. No lymph nodes noted. No crepitus CVS: Normal heart rate and rhythm. Pulses normal. Normal S1 and S2 Respiratory: No respiratory distress. Breath sounds normal. No Wheezing. No rales Abdomen: Soft and nontender. No rigidity. No distention. Skin: Skin warm and dry. Normal skin color. Normal skin turgor. Extremities: No lower extremity edema. No Lacerations. No Rash Neuro: Oriented X 3. No motor deficit. No sensory deficit. Moving all extremities. No slurred speech. CN 2 through 12 grossly intact Psych: calm, cooperative, normal affect Course Course Course Narrative: RME: 43 yold male presents to the ED for depression and suicideal ideation. Patient recently seen in ED for similiar complatins. labs and care team consult placed Medications Administered Discontinued Medications Generic Name Dose Route Start Last Admin Trade Name Freq PRN Reason Stop Dose Admin Melatonin 9 mg 04/30/23 21:31 04/30/23 21:41 Melatonin 3 Mg Tablet PO 04/30/23 21:32 9 mg ONCE ONE Administration Potassium Chloride 40 meq 04/30/23 20:55 04/30/23 21:42 Potassium Chloride Packet 20 Meq Packet PO 04/30/23 20:56 40 meq ONCE ONE Administration Medical Decision Making Medical Decision Making [facility] Narrative: -this is the patient's 2nd visit in 2 days, admission being considered. Care Team consult pending -I reviewed patient's labs, patient has mild hypokalemia, being repleted with p.o. potassium. -urine toxicology positive for marijuana. -care team consult pending -physician observation started at 20:55 0701: Physician observation continued Patient presents emergency department for evaluation of suicidal ideation patient tox screen was positive for cocaine. Patient has been in the emergency department for 12 hours Patient has been seen by the care team and the plan is to re-evaluate him this morning to determine disposition There were no reported incidents on this patient by nursing staff overnight The patient will be kept in the emergency department Behavioral Health Unit until disposition can be determined or until his symptoms improved. 0948: Physician observation continued Patient was re-evaluated by care team. Patient does not meet criteria for inpatient admission but could benefit from respite. Care team will for him to respite. Patient will be kept in the emergency department Behavioral Health Unit until disposition can be determined. 1105: End physician observation: The patient no longer wants to go to respite therefore he will be discharged to home. Differential Diagnosis Differential Diagnoses: The differential diagnosis associated with the presentation includes (Hypokalemia, UTI, depression, alcohol abuse, substance abuse) Admission/Observation Consideration of admission/observation: Escalation of care including admission/observation considered Lab Data [facility] Lab Attestation statement: I reviewed the patient's lab results. Labs: Lab Results 04/30/23 04/30/23 04/30/23 Range/Units 20:04 20:04 20:40 Urine Color Yellow Urine Appearance Clear Urine pH 6.5 (5.0-9.0) Ur Specific [place] 1.010 (1.005-1.025) Urine Protein Negative (Neg-Trace) mg/dL Urine Glucose (UA) Negative (Negative) mg/dL Urine Ketones Negative (Negative) mg/dL Urine Blood Negative (Negative) Urine Nitrite Negative (Negative) Ur Leukocyte Esterase Negative (Negative) Urine Opiates Screen Not Detected (Not Detect) Urine Fentanyl Screen Not Detected (Not Detect) Ur Barbiturates Screen Not Detected (Not Detect) Ur Phencyclidine Scrn Not Detected (Not Detect) Ur Amphetamines Screen Not Detected (Not Detect) U Benzodiazepines Scrn Not Detected (Not Detect) Urine Cocaine Screen POSITIVE H (Not Detect) U Marijuana (THC) Screen Not Detected (Not Detect) Ethyl Alcohol < 10 mg/dL Discharge Plan Discharge Clinical Impression: Suicidal ideation, Depression Patient Disposition: Home, Self-Care Additional Instructions: Continue taking medications as prescribed by your provider. Follow the care team instructions. If you feel like you are going to hurt yourself or hurt anyone else, then come back to the emergency department and we can get you help. Follow-up with your doctor in 2 days. Please return to the emergency department if your symptoms get worse or if you develop any symptoms that are concerning to you. Prescriptions: No Action No Known Home Meds Interventions: [place]-Suicide Risk Severity Scale Last Done: 05/01/23 02:57 ED Discharge Assessment Last Done: 05/01/23 11:19 Discharge Date/Time: 05/01/23 11:20
--- NOTE | 2023-05-01 06:19 | PC.NURSE ---
Patient slept though the night, + effect from Melationin 9 mg administered at 2141, care consult ordered/pending evaluation, patient has ankle monitor on, charged under supervision in the hallway, patient is not on any home medication at this time, behavior non concerning, psych consult ordered for med review, will continue to monitor.
[2023-05-01 06:22] VITALS: RESP 17
[2023-05-01 08:48] VITALS: BP 140/83; PULSE 65; RESP 16; TEMP 37.2; O2SAT 97
--- NOTE | 2023-05-01 10:12 | PC.NURSE ---
pt came to nurses station, presenting with irritable tone, demanding to leave. previously pt awaiting respite placement. pt reporting he no longer wishes to wait, whats the point of being here you tell them what they need and they want to push you onto somebody else anyways . care team made aware of pts wish to leave, made aware and on board with d/c. awaiting orders for d/c at this time.
--- NOTE | 2023-05-01 10:16 | MHC.CARE ---
Pt has requested to speak with CARE Team.? CARE Team and pt meet, pt stated that he wants to discharge and is no longer interested in respite or any of the other services offered to him.? CARE Team speaks with Dr. Hsu regarding pt?s discharge.? Dr. Hsu is in agreement.? Pt will be discharged.
== END 2023-05-01 11:20 | disposition home or self-care (01) ==
PROVIDERS: Emergency Provider Emergency Medicine Emergency Medical Services
DX: R45.851 Suicidal ideations (principal); F32.A Depression, unspecified
CPT/HCPCS: 36415; 80053; 80143; 80164; 80179; 80307; 81003; 85025; 99284

== ENCOUNTER 2023-05-01 13:34 | Emergency (ER) | payer MEDICAID, SELFPAY ==
[2023-05-01 13:37] VITALS: BP 147/96; BP 150/100; PULSE 78; PULSE 80; RESP 16; TEMP 36.6; O2SAT 100; O2SAT 98; BMI 29.5
--- NOTE | 2023-05-01 13:51 | PC.NURSE ---
pt SUSANNE after recent d/c from [facility] this AM, pt this morning did not want to attend respite and requested d/c. after d/c pt went to meet with his sheriff officer who suggested it would be good for him to go to respite. pt remains SI without a plan or intent. pt requesting to go to respite at this time.
--- NOTE | 2023-05-01 14:12 | PC.NURSE ---
CARE team meeting with pt
--- NOTE | 2023-05-01 17:01 | ED.PSYCH ---
HPI - Psych General Chief Complaint: Psychiatric Symptoms Stated Complaint: SI statements Time Seen by Provider: 05/01/23 13:44 Source: patient Mode of arrival: ambulatory Limitations: no limitations History of Present Illness HPI Narrative: 43-year-old male who presented to the emergency department for evaluation of suicidal ideation. The patient was just seen in the emergency department, evaluated by care team and it was determined that he did not meet criteria for inpatient psychiatric care. We did offer to get him into a respite but he refused and left emergency department. He then came back to the emergency department, sign back in and states that he wants to be re-evaluated and be considered for respite care. Related Data Home Medications Medication Instructions Recorded Confirmed No Known Home Meds 04/30/23 05/01/23 Allergies Allergy/AdvReac Type Severity Reaction Status Date / Time bee pollen [bee stings] Allergy Anaphylaxis Verified 05/01/23 13:49 quetiapine [From Seroquel] Allergy Chest Pain Verified 05/01/23 13:49 Review of Systems Review of Systems: Yes all other systems are reviewed and are negative [facility] Past Medical History Medical History Acute blood loss anemia SIMBA (acute kidney injury) Anxiety Bipolar 1 disorder Cavitary pneumonia Chest pain Elevated INR Hydropneumothorax Hypoalbuminemia Hypoxia Over weight Overweight Pleural effusion Pneumonia PTSD (post-traumatic stress disorder) Sepsis Sepsis with acute hypoxic respiratory failure Severe sepsis Substance use disorder Thrombocytopenia Social History Social History Household Members: Spouse and None Housing: House Unable to assess alcohol history related to: Unknown Alcohol intake: never Patient Tobacco Use Status: Former Tobacco user Smoked in Last 30 Days: Yes Use of substances other than those prescribed or required for medical reasons: Yes Substance Use Type: Other Advance Directives: No Advance Directives Information Provided: No service: No Current occupational status: disabled Physical Exam Vital Signs: Vital Signs: Last Vital Signs Temp 98 F 05/01/23 13:37 Pulse 78 05/01/23 13:37 Resp 16 05/01/23 13:37 BP 147/96 H 05/01/23 13:37 Pulse Ox 100 05/01/23 13:37 O2 Del Method Room Air 07/03/23 13:37 BMI result Body Mass Index 29.5 Const: General: cooperative and no acute distress Orientation/consciousness: oriented to person and oriented to place Limitations: no limitations HEENT: Head: Yes normal to inspection, Yes normocephalic and Yes atraumatic Ears: external ears normal General nose exam: Normal external nose present Face and sinus: Yes normal facial exam Mouth: Normal oral and palatal mucosa present Throat: Yes posterior oropharynx normal Eyes: General: appearance normal, both eyes and all related structures Pupils: Equal, round and reactive pupils present Neck: Neck: Yes normal visual inspection, Yes no lymphadenopathy, Yes trachea midline and Yes supple Chest: Chest palpation & inspection: normal inspection of the chest and normal palpation of entire chest wall Resp: Effort & Inspection: normal respiratory effort and able to speak in complete sentences Auscultation: clear to auscultation bilaterally Cardio: Rate: regular rate Rhythm: regular rhythm Heart sounds: S1 normal heart sound present, S2 normal heart sound present and no murmurs GI: Inspection: Yes normal to inspection Palpation (GI): Soft to palpation, nontender and no guarding Auscultation: normal bowel sounds : General: Yes no CVA tenderness Back/Spine/Pelvis: Back: no CVA tenderness Skin: General skin exam: no rashes or lesions noted Neuro: General: oriented to person and oriented to place Cranial nerves: Yes CN's II-XII intact bilaterally and Yes Equal, round and reactive pupils present Cognition (Neuro): normal cognition Motor exam (neuro): 5/5 motor strength present throughout Extrem: General: Yes normal to inspection Psych: Appearance: grossly normal Speech and movement: Normal speech and movement present Affect: normal affect Attitude: cooperative Thought process: Normal thought process present Thought content: Normal thought content present Medical Decision Making Medical Decision Making MDM Narrative: 43-year-old male with a psychiatric history of depression, anxiety, PTSD who was just evaluate by the care team, offered respite refuse and discharge from the emergency department who now signs back and requesting re-evaluation. Patient examination was unremarkable. 17 12: Given the patient's recent evaluation, I did not repeat any of his blood work. The patient will be re-evaluated by care team and we will attempt to get him a respite bed. Differential Diagnosis Differential diagnosis includes was not limited to depression, anxiety, suicidal ideation, Discharge Plan Discharge Clinical Impression: Depression Patient Disposition: Still a Patient Prescriptions: No Action No Known Home Meds Interventions: [place]-Suicide Risk Severity Scale Last Done: 05/01/23 13:49
--- NOTE | 2023-05-01 17:04 | PC.NURSE ---
pt reports he has not been on his home medications for the past 6 months due to insurance problems. reports he needs to get his meds figured out before he goes to respite
[2023-05-01 18:49] VITALS: BP 114/72; PULSE 59; RESP 18; TEMP 36.9; O2SAT 99
[2023-05-02 05:00] VITALS: BP 139/78; PULSE 73; RESP 16; TEMP 36.7; O2SAT 98
--- NOTE | 2023-05-02 06:14 | PC.NURSE ---
Patient slept through the night, no distress observed/reported, disposition per care team is respite bed search, no behavior concerns, VSS, currently not on any medication, will continue to monitor.
--- NOTE | 2023-05-03 09:09 | MHC.CARE ---
LATE ENTRY 05/02/23 1030 Patient requested a meeting with the CARE Team, stated he wanted to be discharged. Reported that he had been feeling hopeless because he was without housing and out of medication but spoke to his mother this morning and she said he could come to her house. In addition, she told him that he has the medication with refills that he left last time he was there. Patient explained that he thought he had no one left in the world but when his mother told him he was welcome home his depression lifted. In addition, patient stated that he has a mandatory offended group on Wednesdays that he cannot miss under any circumstances or he will be sent to skilled nursing. Patient firmly denied suicidal ideation, plan or intention. [facility] was in the process of reviewing patient?s referral to [facility], they were notified that patient discharged and they can follow up with him directly. ED provider, Dr. Hsu consulted and in agreement with plan to discharge.
== END 2023-05-02 12:08 | disposition home or self-care (01) ==
PROVIDERS: Emergency Provider Emergency Medicine Emergency Medical Services
DX: R45.851 Suicidal ideations (principal); F31.9 Bipolar disorder, unspecified; F43.10 Post-traumatic stress disorder, unspecified; Z87.891 Personal history of nicotine dependence
CPT/HCPCS: 99284

== ENCOUNTER 2023-05-04 00:41 | Emergency (ER) | payer MEDICAID, SELFPAY ==
[2023-05-04 00:55] VITALS: BP 125/75; PULSE 96; RESP 20; TEMP 36.6; O2SAT 98; BMI 32.3
--- NOTE | 2023-05-04 01:19 | ED.PSYCH ---
HPI - Psych General Chief Complaint: ETOH/Substance Use Stated Complaint: detox Time Seen by Provider: 05/04/23 01:12 Source: patient Mode of arrival: ambulatory Limitations: no limitations History of Present Illness HPI Narrative: Patient's history of substance abuse homeless uses heroin and cocaine been here multiple times was sent to respite 2 days ago came back as he needs more help patient broke up with his girlfriend about 4 days ago is homeless lives in his car which does not run denies any significant depression or SI last use of heroin and cocaine was earlier today patient used to be on Suboxone until 03/29/23 has upon her methadone clinic in [facility] at 07:00 Related Data Home Medications Medication Instructions Recorded Confirmed No Known Home Meds 04/30/23 05/01/23 Allergies Allergy/AdvReac Type Severity Reaction Status Date / Time bee pollen [bee stings] Allergy Anaphylaxis Verified 05/01/23 13:49 quetiapine [From Seroquel] Allergy Chest Pain Verified 05/01/23 13:49 Review of Systems Review of Systems: Yes all other systems are reviewed and are negative [facility] Past Medical History Medical History Acute blood loss anemia SIMBA (acute kidney injury) Anxiety Bipolar 1 disorder Cavitary pneumonia Chest pain Elevated INR Hydropneumothorax Hypoalbuminemia Hypoxia Over weight Overweight Pleural effusion Pneumonia PTSD (post-traumatic stress disorder) Sepsis Sepsis with acute hypoxic respiratory failure Severe sepsis Substance use disorder Thrombocytopenia Social History Social History Household Members: Spouse and None Housing: House Unable to assess alcohol history related to: Unknown Alcohol intake: never Patient Tobacco Use Status: Former Tobacco user Smoked in Last 30 Days: Yes Use of substances other than those prescribed or required for medical reasons: Yes Substance Use Type: Crack/Cocaine and Heroin Advance Directives: No Advance Directives Information Provided: No service: No Current occupational status: disabled Physical Exam Vital Signs: Vital Signs: Last Vital Signs Temp 97.5 F 05/04/23 03:56 Pulse 78 05/04/23 03:56 Resp 20 05/04/23 03:56 BP 124/77 05/04/23 03:56 Pulse Ox 99 05/04/23 03:56 O2 Del Method Room Air 05/04/23 03:56 BMI result Body Mass Index 32.3 Appearance: Alert. Oriented X3. No acute distress. Eyes: PERRLA, No Nystagmus ENT: Pharynx normal. Oral Mucosa moist Neck: Normal inspection. Neck supple. CVS: Normal heart rate and rhythm. Pulses normal. Respiratory: No respiratory distress. Equal air entry bilateral, no wheezing/rales/rhonchi Abdomen: Soft and nontender. Bowel sounds are present, no mass palpable, no CVA tenderness Skin: Skin warm and dry. Normal skin color. Normal skin turgor. Extremities: No lower extremity edema. No calf tenderness psych: Mood stable denies SI or HI no hallucination/ delusion Neuro: Oriented X 3. No motor deficit. No sensory deficit.No cerebellar signs , cranial nerves II-XII intact Medications Administered Discontinued Medications Generic Name Dose Route Start Last Admin Trade Name Freq PRN Reason Stop Dose Admin Ondansetron HCl 4 mg 05/04/23 01:18 05/04/23 01:31 Ondansetron Odt 4 Mg Tab.Rapdis TRANSLINGU 05/04/23 01:19 4 mg ONCE ONE Administration Medical Decision Making Medical Decision Making [facility] Narrative: Patient polysubstance abuse supposed to see detox at [facility] for methadone at 07:00 clinically stable discharge patient to go to detox as outpatient Discharge Plan Discharge Clinical Impression: Polysubstance abuse Patient Disposition: Home, Self-Care Instructions: Polysubstance Abuse (ED) Additional Instructions: Follow-up with Emelyncarlos Maurer as scheduled today for detox and methadone Prescriptions: No Action No Known Home Meds
--- NOTE | 2023-05-04 01:36 | MHC.EDTECH ---
Pt was brought through triage, changed over into hospital attire. Pt's belongings list done with security at bedside. Verbal reassurance given and call [place] within reach.
[2023-05-04 03:56] VITALS: BP 124/77; PULSE 78; RESP 20; TEMP 36.4; O2SAT 99
[2023-05-04 04:00] VITALS: PULSE 78
--- NOTE | 2023-05-04 04:01 | MHC.EDTECH ---
Patient repositioned and warm blanket given, resting quietly.
--- NOTE | 2023-05-04 05:20 | PC.NURSE ---
late entry- pt medicated according to dec. pt belongings secured in pod.
[2023-05-04 05:40] VITALS: BP 110/72; PULSE 74; RESP 18; TEMP 36.5; O2SAT 97
--- NOTE | 2023-05-04 05:46 | PC.NURSE ---
vss. pt agitated at discharge. security at bedside to escort pt to decon to obtain belongings. pt provided with discharge packet. pt provided with bus passes by security. pt verbalized understanding of discharge plan
== END 2023-05-04 05:49 | disposition home or self-care (01) ==
PROVIDERS: Emergency Provider Internal Medicine
DX: F19.10 Other psychoactive substance abuse, uncomplicated (principal); F31.9 Bipolar disorder, unspecified; F43.10 Post-traumatic stress disorder, unspecified; Z87.891 Personal history of nicotine dependence; Z59.02 Unsheltered homelessness
CPT/HCPCS: 99283; 99284

== ENCOUNTER 2024-07-17 20:09 | Emergency (ER) | payer MEDICAID, SELFPAY ==
[2024-07-17 20:43] VITALS: BP 137/90; PULSE 78; RESP 18; TEMP 36.9; O2SAT 99; BMI 33.8
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
== END 2024-07-18 01:32 | disposition left against medical advice (07) ==
PROVIDERS: Emergency Provider Emergency Medicine
DX: M25.561 Pain in right knee (principal)
CPT/HCPCS: 99281

== ENCOUNTER 2024-07-26 14:08 | Emergency (ER) | payer MEDICAID, SELFPAY ==
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
[2024-07-26 14:30] VITALS: BP 140/104; PULSE 106; RESP 18; TEMP 36.6; O2SAT 97; BMI 31.4
[2024-07-26 15:08] LABS: MANUAL DIFF FLAG NO
[2024-07-26 15:09] LABS: Basophils Percent Auto 0.3 % (0-2); Eosinophils Percent Auto 0.2 % (0-4); Hematocrit 42.6 % (42.0-52.0); Hemoglobin 14.5 g/dl (14.0-18.0); Imm Gran Abs Auto 0.03 X10*3/uL (0.00-0.03); Imm Gran Pct Auto 0.3 % (0.0-0.4); Lymphocytes Absolute Auto 1.9 X10*3/uL (1.2-4.9); Lymphocytes Percent Auto 21.6 % (20-40); Mean Corpuscular Hemoglobin 30.2 pg (27.0-33.0); Mean Corpuscular Volume 88.8 fL (80.0-98.0); Mean Platelet Volume 9.6 fL (9.4-12.4); Monocytes Absolute Auto 0.5 X10*3/uL (0.1-1.2); Monocytes Percent Auto 5.9 % (2-11); Neutrophils Absolute Auto 6.2 x10*3/uL (2.0-8.3); Neutrophils Percent Auto 71.7 % (45-73); Platelet Count 229 X10*3/uL (160-400); Red Cell Distribution Width 14.3 % (11.0-16.0); White Blood Count 8.7 X10*3/uL (4.8-10.8)
[2024-07-26 15:23] LABS: Alanine Aminotransferase 10 U/L (0-40); Albumin Level 4.5 g/dL (3.5-5.0); Alkaline Phosphatase 84 U/L (39-117); Anion Gap 13 (12-20); Aspartate Amino Transferase 15 U/L (5-37); Bilirubin Direct 0.2 mg/dL (0.0-0.5); Bilirubin Total 0.3 mg/dL (0.0-1.0); Blood Urea Nitrogen 17 mg/dL (9-16); Calcium 9.9 mg/dL (8.4-10.2); Carbon Dioxide 21 mmol/L (22-29); Chloride 115 mmol/L (96-108); Creatinine Clr Calc Pharmacy 111.4; Estimated Glomerular Filt Rate > 60; Ethanol < 10 mg/dL; Glucose Random 108 mg/dL (60-115); Magnesium 2.1 mg/dL (1.6-2.6); Potassium 3.8 mmol/L (3.3-5.1); Sodium 145 mmol/L (135-145); Total Protein 7.5 g/dL (6.5-8.0)
[2024-07-26 15:33] LABS: Acetaminophen LAB < 3 mcg/mL (<30); Salicylate < 5.0 mg/dL (15-30)
[2024-07-26 15:39] VITALS: RESP 14
[2024-07-26 15:59] VITALS: BP 126/89; PULSE 90; RESP 16; TEMP 36.8; O2SAT 97
[2024-07-26 16:24] LABS: Amphetamine Screen Urine Not Detected (Not Detect); Barbiturates, Urine Not Detected (Not Detect); Benzodiazepines Screen Urine Not Detected (Not Detect); Buprenorphine Scr Not Detected (Not Detect); Cannabinoid Screen Urine Not Detected (Not Detect); Cocaine Screen Urine POSITIVE (Not Detect); Fentanyl, urine Not Detected (Not Detect); Methadone Screen, Urine Not Detected (Not Detect); Opiate Screen Urine Not Detected (Not Detect); Oxycodone Screen Urine Not Detected (Not Detect); Phencyclidine Screen Urine Not Detected (Not Detect)
--- NOTE | 2024-07-26 19:04 | PC.NURSE ---
pt became upset that staff were him from 5, and became aggressive with staff. Pt began yelling that he wanted to be discharged. ANURAG isaacs
[2024-07-26 19:05] VITALS: BP 126/89; PULSE 90; RESP 16; TEMP 36.8; O2SAT 97
== END 2024-07-26 19:07 | disposition home or self-care (01) ==
PROVIDERS: Physician Assistant; Emergency Provider Internal Medicine
DX: R44.0 Auditory hallucinations (principal); R44.1 Visual hallucinations; F31.9 Bipolar disorder, unspecified; Z79.899 Other long term (current) drug therapy; F19.10 Other psychoactive substance abuse, uncomplicated
CPT/HCPCS: 36415; 80048; 80076; 80143; 80179; 80307; 83735; 85025; 99285

== ENCOUNTER 2024-07-26 21:33 | Emergency (ER) | payer MEDICAID, SELFPAY ==
--- NOTE | ~2024-07-26 | XR_ITS ---
EXAMINATION: XR KNEE, RIGHT CLINICAL INFORMATION: Right knee pain COMPARISON: None available. TECHNIQUE: Four views of the right knee. FINDINGS: No fracture or joint effusion. Alignment is anatomic. Joint spaces are maintained. No abnormal soft tissue calcification. XR/XR knee RT 4V IMPRESSION: Normal right knee. Electronically signed by: Tay Torres MD 07/26/2024 10:41 PM EDT
[2024-07-26 21:40] VITALS: BP 146/80; PULSE 71; RESP 17; TEMP 36.6; O2SAT 100; BMI 33.0
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
[2024-07-26 23:18] VITALS: BP 146/80; PULSE 71; RESP 17; TEMP 36.6; O2SAT 100
[2024-07-26] MEDS: Gabapentin 300 MG CAPSULE PO (23:18)
== END 2024-07-26 23:20 | disposition home or self-care (01) ==
PROVIDERS: Emergency Provider Internal Medicine
DX: M25.561 Pain in right knee (principal); Z79.899 Other long term (current) drug therapy
CPT/HCPCS: 73564; 99283

== ENCOUNTER 2024-07-27 11:32 | Emergency (ER) | payer MEDICAID, SELFPAY ==
[2024-07-27 11:35] VITALS: BP 123/84; PULSE 87; RESP 16; TEMP 37; O2SAT 98; BMI 33.8
--- NOTE | 2024-07-27 11:42 | ED.PSYCH ---
HPI - Psych General Chief Complaint: Psychiatric Symptoms Stated Complaint: crisis Time Seen by Provider: 07/27/24 11:59 Source: patient Mode of arrival: ambulatory Limitations: no limitations History of Present Illness ED Provider: Dr. Mac Hsu HPI Narrative: 44-year-old male with a history of PTSD, anxiety, schizoaffective disorder, bipolar disorder who presents emergency department for evaluation of auditory hallucinations. Patient states that he has had auditory hallucinations for a long time but the voices have gotten louder. Patient states that he was incarcerated and continued on his previous medications with several new medications were added. He was released from longterm in April of 2024 and states he has not been able to follow-up with a psychiatrist. He was concerned that the voices are getting louder and he states that the voices are telling him that he is ?no good?, a piece of shit . The voices are not telling him to hurt himself or others. He denies being suicidal or homicidal. Patient was seen in the emergency department on 07/26/2024 (1 day prior) for similar complaints. He states that he was homeless. Related Data Home Medications ?Medication ?Instructions ?Recorded ?Confirmed buspirone 15 mg tablet 15 mg PO TID 07/26/24 07/26/24 clonidine HCl 0.1 mg tablet 0.1 mg PO BID 07/26/24 07/26/24 dicyclomine 10 mg capsule 20 mg PO TID 07/26/24 07/26/24 divalproex 500 mg tablet,delayed 1,000 mg PO BID 07/26/24 07/26/24 release (Depakote) hydroxyzine HCl 25 mg tablet 75 mg PO DIRECTED 07/26/24 07/26/24 hydroxyzine HCl 50 mg tablet 100 mg PO BEDTIME 07/26/24 07/26/24 mirtazapine 45 mg tablet 45 mg PO BEDTIME 07/26/24 07/26/24 oxcarbazepine 300 mg tablet 300 mg PO TID 07/26/24 07/26/24 Previous Rx's ?Medication ?Instructions ?Recorded gabapentin 300 mg capsule 300 mg PO BEDTIME PRN pain #30 caps 07/26/24 Allergies Allergy/AdvReac Type Severity Reaction Status Date / Time bee pollen [bee stings] Allergy Anaphylaxis Verified 07/27/24 11:42 quetiapine [From Seroquel] Allergy Chest Pain Verified 07/27/24 11:42 Review of Systems Review of Systems: Yes all other systems are reviewed and are negative [facility] Past Medical History [facility] Narrative: Social history: He was homeless. He does smoke cigarettes. He denies alcohol use. He does use crack cocaine. Medical History SIMBA (acute kidney injury) Acute blood loss anemia Over weight Hypoalbuminemia Elevated INR Overweight Pleural effusion Thrombocytopenia Hydropneumothorax Cavitary pneumonia Sepsis with acute hypoxic respiratory failure Severe sepsis Hypoxia Pneumonia Sepsis Chest pain PTSD (post-traumatic stress disorder) Anxiety Bipolar 1 disorder Substance use disorder Social History Social History Household Members: Spouse and None Housing: House Unable to assess alcohol history related to: Unknown Alcohol intake: current Alcohol intake frequency: does not drink Comment: bed alarm s/p surgery Patient Tobacco Use Status: Former Tobacco user Smoked in Last 30 Days: Yes Use of substances other than those prescribed or required for medical reasons: Yes Substance Use Type: Crack/Cocaine Substance Use Frequency: Daily Advance Directives: No Advance Directives Information Provided: No Do you have a plan to hurt others: No Plan service: No Current occupational status: disabled Physical Exam Vital Signs: Vital Signs: Last Vital Signs Temp 98.6 F 07/27/24 11:35 Pulse 87 07/27/24 11:35 Resp 16 07/27/24 11:35 BP 123/84 07/27/24 11:35 Pulse Ox 98 07/27/24 11:35 O2 Del Method Room Air 07/27/24 11:35 BMI result Body Mass Index 33.8 Vital signs were normal Exam: General: Awake, alert in no distress Head: Normocephalic, atraumatic EENT: PERRL, Lids normal, sclera normal, conjunctiva normal, nose normal , ears normal, throat without erythema or exudates Neck: Supple, no adenopathy Lung: breath sounds symmetric, no wheezing, rales or rhonchi Chest: symmetric movement, nontender Heart: regular rate and rhythm, normal S1, S2 no murmurs or rubs Abdomen: soft, non-tender, nondistended, normal bowel sounds Back: no vertebral tenderness, no CVAT Extremities: no deformities, moves all extremities symmetrically Neuro: Awake, alert, oriented, normal speech, cranial nerves intact, moves all extremities symmetrically Psych: Pleasant, cooperative Course Course Course Narrative: This is an RME: Additional HPI, ROS, PE not included below will be deferred to primary provider. RME assessment and note performed by: Rama Leggett PA-C This is a [id number]-male who presents to the ER with complaints of auditory hallucinations. He has a hx of similar symptoms - was seen yesterday but became upset and demanded to be discharged prior to care team evaluation. He denies any SI or HI. He states that he slept in the waiting room as this was where he felt safe. No alcohol use. Reporting he uses crack, about $40 per day, last use was two days ago Plan: Labs, UA, utox Reevaluation(s) Reevaluation #1: Medications Administered Discontinued Medications Generic Name Dose Route Start Last Admin Trade Name Renu PRN Reason Stop Dose Admin Olanzapine 5 mg 07/27/24 12:19 07/27/24 12:31 Olanzapine 5 Mg Tablet PO 07/27/24 12:20 5 mg ONCE ONE Administration Medical Decision Making Medical Decision Making [facility] Narrative: 44-year-old male with a history of PTSD, anxiety, schizoaffective disorder, bipolar disorder who presents emergency department for evaluation of auditory hallucinations which are becoming louder and very negative. He has had auditory hallucinations for a long time he attributes this to his schizophrenia. He is using crack cocaine. Patient was recently incarcerated and had medication changes he states he is compliant with his medications. Patient was seen in the emergency department yesterday for similar complaints, evaluate and discharged home. He denies being suicidal or homicidal. Vital signs were normal. Physical examination was unremarkable. Differential diagnosis: ?Includes but is not limited to auditory hallucinations, cocaine psychosis, decompensation of schizophrenia, noncompliance, anemia, electrolyte abnormality Patient was initially treated with the following: Zyprexa 5 mg orally Course: My interpretation patient's laboratory evaluation is as follows: CBC was normal. CMP was normal. Urinalysis and microscopic were unremarkable. Drug screen urine was positive for cocaine-patient admits to using crack cocaine. The patient was evaluated by care team and was felt that did not meet criteria for admission at this time. Patient was referred to [facility] in [place] for re-evaluation and referral to a prescribing provider. Admission/Observation Consideration of admission/observation: Escalation of care including admission/observation considered (Yes) Lab Data MDM Lab Attestation statement: I reviewed the patient's lab results. 07/27/24 12:16 07/27/24 12:16 Labs: Lab Results 07/27/24 07/27/24 07/27/24 Range/Units 12:16 13:51 13:52 WBC 8.6 (4.8-10.8) X10*3/uL RBC 4.58 L (4.60-5.80) X10*6/uL Hgb 13.6 L (14.0-18.0) g/dl Hct 40.6 L (42.0-52.0) % MCV 88.6 (80.0-98.0) fL MCH 29.7 (27.0-33.0) pg MCHC 33.5 (31.0-36.0) g/dl RDW 14.1 (11.0-16.0) % Plt Count 230 (160-400) X10*3/uL MPV 9.4 (9.4-12.4) fL Immature Gran % (Auto) 0.4 (0.0-0.4) % Neut % (Auto) 61.9 (45-73) % Lymph % (Auto) 31.5 (20-40) % [place] % (Auto) 5.3 (2-11) % Eos % (Auto) 0.5 (0-4) % Baso % (Auto) 0.4 (0-2) % Lymph # (Auto) 2.7 (1.2-4.9) X10*3/uL [place] # (Auto) 0.5 (0.1-1.2) X10*3/uL Eos # (Auto) 0.0 (0.0-0.4) X10*3/uL Baso # (Auto) 0.0 (0.0-0.2) X10*3/uL Abs Immat Gran (auto) 0.03 (0.00-0.03) X10*3/uL Absolute Neuts (auto) 5.3 (2.0-8.3) x10*3/uL Absolute Nucleated RBC 0.000 (0.0-0.012) X10*3/uL Nucleated RBC % (auto) 0.0 (0.0-0.2) /100WBC Sodium 142 (135-145) mmol/L Potassium 3.6 (3.3-5.1) mmol/L Chloride 111 H (96-108) mmol/L Carbon Dioxide 21 L (22-29) mmol/L Anion Gap 14 (12-20) BUN 15 (9-16) mg/dL Creatinine 0.88 (0.5-1.4) mg/dL Estim Creat Clear Calc 143.0 Estimated GFR > 60 Random Glucose 107 (60-115) mg/dL Calcium 9.4 (8.4-10.2) mg/dL Total Bilirubin 0.4 (0.0-1.0) mg/dL Direct Bilirubin 0.1 (0.0-0.5) mg/dL AST 15 (5-37) U/L ALT 10 (0-40) U/L Alkaline Phosphatase 82 (39-117) U/L Total Protein 7.1 (6.5-8.0) g/dL Albumin 4.2 (3.5-5.0) g/dL Urine Color Yellow Urine Appearance Clear Urine pH 6.5 (5.0-9.0) Ur Specific [place] 1.020 (1.005-1.025) Urine Protein Negative (Neg-Trace) mg/dL Urine Glucose (UA) Negative (Negative) mg/dL Urine Ketones 15 (Negative) mg/dL Urine Blood Negative (Negative) Urine Nitrite Negative (Negative) Ur Leukocyte Esterase Trace H (Negative) Urine RBC 0-2 (0-2) /HPF Urine WBC 0-5 (0-5) /HPF Ur Squamous Epith Cells 0-2 (0-2) /HPF Urine Bacteria None Seen (None Seen) Hyaline Casts 0-2 (0-2) /LPF Urine Opiates Screen Not Detected (Not Detect) Ur Buprenorphine Scrn Not Detected (Not Detect) ng/mL Ur Oxycodone Screen Not Detected (Not Detect) ng/mL Urine Methadone Screen Not Detected (Not Detect) ng/mL Urine Fentanyl Screen Not Detected (Not Detect) Ur Barbiturates Screen Not Detected (Not Detect) Ur Phencyclidine Scrn Not Detected (Not Detect) Ur Amphetamines Screen Not Detected (Not Detect) U Benzodiazepines Scrn Not Detected (Not Detect) Urine Cocaine Screen POSITIVE H (Not Detect) U Marijuana (THC) Screen Not Detected (Not Detect) Ethyl Alcohol < 10 mg/dL Chronic Conditions Patient?s care impacted by: Other (Schizophrenia with chronic auditory hallucinations) Social Determinants Patient?s care significantly limited by Social Determinants of Health including: Inadequate housing Discharge Plan Discharge Clinical Impression: Auditory hallucination, Schizophrenia Patient Disposition: Home, Self-Care Additional Instructions: Continue taking medications as prescribed by your providers. You were seen by our care team and they are recommending that you follow-up with the [facility] office on [facility] in [place] to get assistance with your medications and evaluation by a prescribing provider. Follow-up with your doctor in 2 days. Please return to the emergency department if your symptoms get worse or if you develop any symptoms that are concerning to you. Prescriptions: No Action clonidine HCl 0.1 mg Tablet 0.1 mg PO BID hydroxyzine HCl 50 mg Tablet 100 mg PO BEDTIME oxcarbazepine 300 mg Tablet 300 mg PO TID divalproex [Depakote] 500 mg Tablet,Delayed Release (Dr/Ec) 1,000 mg PO BID mirtazapine 45 mg Tablet 45 mg PO BEDTIME hydroxyzine HCl 25 mg Tablet 75 mg PO DIRECTED Rx Instructions: Take 3 (25 mg capsules) in am and 3 (25 mg capsules) at noon dicyclomine 10 mg Capsule 20 mg PO TID buspirone 15 mg Tablet 15 mg PO TID gabapentin 300 mg capsule 300 mg PO BEDTIME PRN (Reason: pain) Qty: 30 0RF Interventions: Geary-Suicide Risk Severity Scale Last Done: 07/27/24 12:00 Print Language: Japanese
[2024-07-27 12:25] LABS: MANUAL DIFF FLAG NO
[2024-07-27 12:26] LABS: Basophils Percent Auto 0.4 % (0-2); Eosinophils Percent Auto 0.5 % (0-4); Hematocrit 40.6 % (42.0-52.0); Hemoglobin 13.6 g/dl (14.0-18.0); Imm Gran Abs Auto 0.03 X10*3/uL (0.00-0.03); Imm Gran Pct Auto 0.4 % (0.0-0.4); Lymphocytes Absolute Auto 2.7 X10*3/uL (1.2-4.9); Lymphocytes Percent Auto 31.5 % (20-40); Mean Corpuscular HGB Conc 33.5 g/dl (31.0-36.0); Mean Corpuscular Hemoglobin 29.7 pg (27.0-33.0); Mean Corpuscular Volume 88.6 fL (80.0-98.0); Mean Platelet Volume 9.4 fL (9.4-12.4); Monocytes Absolute Auto 0.5 X10*3/uL (0.1-1.2); Monocytes Percent Auto 5.3 % (2-11); Neutrophils Absolute Auto 5.3 x10*3/uL (2.0-8.3); Neutrophils Percent Auto 61.9 % (45-73); Platelet Count 230 X10*3/uL (160-400); Red Blood Count 4.58 X10*6/uL (4.60-5.80); Red Cell Distribution Width 14.1 % (11.0-16.0); White Blood Count 8.6 X10*3/uL (4.8-10.8)
[2024-07-27] MEDS: OLANZapine 5 MG TABLET PO (12:31)
[2024-07-27 12:39] LABS: Alanine Aminotransferase 10 U/L (0-40); Albumin Level 4.2 g/dL (3.5-5.0); Alkaline Phosphatase 82 U/L (39-117); Anion Gap 14 (12-20); Aspartate Amino Transferase 15 U/L (5-37); Bilirubin Direct 0.1 mg/dL (0.0-0.5); Bilirubin Total 0.4 mg/dL (0.0-1.0); Blood Urea Nitrogen 15 mg/dL (9-16); Calcium 9.4 mg/dL (8.4-10.2); Carbon Dioxide 21 mmol/L (22-29); Chloride 111 mmol/L (96-108); Estimated Glomerular Filt Rate > 60; Ethanol < 10 mg/dL; Glucose Random 107 mg/dL (60-115); Potassium 3.6 mmol/L (3.3-5.1); Sodium 142 mmol/L (135-145); Total Protein 7.1 g/dL (6.5-8.0)
[2024-07-27 14:00] LABS: Appearance Urine Clear; Color Urine Yellow; Glucose Urine UA Negative (Negative); Leukocyte Esterase Urine Trace (Negative); Nitrite Urine Negative (Negative); PH 6.5 (5.0-9.0); UMIC TRIGGER UACC YES; Urine Blood Negative (Negative); Urine Ketones 15 mg/dL (Negative); Urine Protein Negative (Neg-Trace)
[2024-07-27 14:05] LABS: Bacteria Urine None Seen (None Seen); Hyaline Casts Urine 0-2 /LPF (0-2); RBC Urine 0-2 /HPF (0-2); Squamous Epithelial Cell Urine 0-2 /HPF (0-2); WBC Urine 0-5 /HPF (0-5)
[2024-07-27 14:09] LABS: Amphetamine Screen Urine Not Detected (Not Detect); Barbiturates, Urine Not Detected (Not Detect); Benzodiazepines Screen Urine Not Detected (Not Detect); Buprenorphine Scr Not Detected (Not Detect); Cannabinoid Screen Urine Not Detected (Not Detect); Cocaine Screen Urine POSITIVE (Not Detect); Fentanyl, urine Not Detected (Not Detect); Methadone Screen, Urine Not Detected (Not Detect); Opiate Screen Urine Not Detected (Not Detect); Oxycodone Screen Urine Not Detected (Not Detect); Phencyclidine Screen Urine Not Detected (Not Detect)
[2024-07-27 19:23] VITALS: BP 000/00; PULSE 80; RESP 18; TEMP 37.1; O2SAT 98
== END 2024-07-27 19:25 | disposition home or self-care (01) ==
PROVIDERS: Physician Assistant Medical; Emergency Provider Emergency Medicine Emergency Medical Services
DX: F20.9 Schizophrenia, unspecified (principal); Z79.899 Other long term (current) drug therapy
CPT/HCPCS: 36415; 80048; 80076; 80307; 81001; 81003; 85025; 99284; S9485

== ENCOUNTER 2024-08-02 17:13 | Emergency (ER) | payer MEDICAID, SELFPAY ==
--- NOTE | 2024-08-02 17:45 | MHC.EDTECH ---
This tech called patient for triage x2 - no response. Registration staff did not see patient in waiting room. Charge aware.
--- NOTE | 2024-08-02 17:45 | ED.GENADULT ---
HPI - General Adult General Stated complaint: crisis Time Seen by Provider: 08/02/24 17:45 Source: patient Mode of arrival: ambulatory Limitations: no limitations History of Present Illness ED Provider: Katya Honeycutt PA-C Related Data Home Medications ?Medication ?Instructions ?Recorded ?Confirmed buspirone 15 mg tablet 15 mg PO TID 07/26/24 07/26/24 clonidine HCl 0.1 mg tablet 0.1 mg PO BID 07/26/24 07/26/24 dicyclomine 10 mg capsule 20 mg PO TID 07/26/24 07/26/24 divalproex 500 mg tablet,delayed 1,000 mg PO BID 07/26/24 07/26/24 release (Depakote) hydroxyzine HCl 25 mg tablet 75 mg PO DIRECTED 07/26/24 07/26/24 hydroxyzine HCl 50 mg tablet 100 mg PO BEDTIME 07/26/24 07/26/24 mirtazapine 45 mg tablet 45 mg PO BEDTIME 07/26/24 07/26/24 oxcarbazepine 300 mg tablet 300 mg PO TID 07/26/24 07/26/24 Previous Rx's ?Medication ?Instructions ?Recorded gabapentin 300 mg capsule 300 mg PO BEDTIME PRN pain #30 caps 07/26/24 Allergies Allergy/AdvReac Type Severity Reaction Status Date / Time bee pollen [bee stings] Allergy Anaphylaxis Verified 07/27/24 11:42 quetiapine [From Seroquel] Allergy Chest Pain Verified 07/27/24 11:42 PMFSH Past Medical History Medical History SIMBA (acute kidney injury) Acute blood loss anemia Over weight Hypoalbuminemia Elevated INR Overweight Pleural effusion Thrombocytopenia Hydropneumothorax Cavitary pneumonia Sepsis with acute hypoxic respiratory failure Severe sepsis Hypoxia Pneumonia Sepsis Chest pain PTSD (post-traumatic stress disorder) Anxiety Bipolar 1 disorder Substance use disorder Social History Social History Household Members: Spouse and None Housing: House Unable to assess alcohol history related to: Unknown Alcohol intake: current Alcohol intake frequency: does not drink Comment: bed alarm s/p surgery Patient Tobacco Use Status: Former Tobacco user Substance Use Type: Crack/Cocaine service: No Current occupational status: disabled Discharge Plan Discharge Prescriptions: No Action clonidine HCl 0.1 mg Tablet 0.1 mg PO BID hydroxyzine HCl 50 mg Tablet 100 mg PO BEDTIME oxcarbazepine 300 mg Tablet 300 mg PO TID divalproex [Depakote] 500 mg Tablet,Delayed Release (Dr/Ec) 1,000 mg PO BID mirtazapine 45 mg Tablet 45 mg PO BEDTIME hydroxyzine HCl 25 mg Tablet 75 mg PO DIRECTED Rx Instructions: Take 3 (25 mg capsules) in am and 3 (25 mg capsules) at noon dicyclomine 10 mg Capsule 20 mg PO TID buspirone 15 mg Tablet 15 mg PO TID gabapentin 300 mg capsule 300 mg PO BEDTIME PRN (Reason: pain) Qty: 30 0RF Print Language: Bahamian
--- NOTE | 2024-08-02 17:56 | MHC.EDTECH ---
call patient out in waiting room no response
== END 2024-08-02 18:56 | disposition left against medical advice (07) ==
PROVIDERS: Emergency Provider Emergency Medicine
DX: F41.9 Anxiety disorder, unspecified (principal); F31.9 Bipolar disorder, unspecified; F43.10 Post-traumatic stress disorder, unspecified; F19.10 Other psychoactive substance abuse, uncomplicated

== ENCOUNTER 2024-11-12 13:42 | Outpatient (REF) | payer MEDICAID, SELFPAY ==
[2024-11-12 13:58] LABS: MANUAL DIFF FLAG NO
[2024-11-12 14:11] LABS: Basophils Percent Auto 0.3 % (0-2); Eosinophils Percent Auto 0.6 % (0-4); Hematocrit 43.5 % (42.0-52.0); Hemoglobin 14.2 g/dl (14.0-18.0); Imm Gran Abs Auto 0.02 X10*3/uL (0.00-0.03); Imm Gran Pct Auto 0.3 % (0.0-0.4); Lymphocytes Absolute Auto 1.9 X10*3/uL (1.2-4.9); Lymphocytes Percent Auto 26.5 % (20-40); Mean Corpuscular HGB Conc 32.6 g/dl (31.0-36.0); Mean Corpuscular Hemoglobin 28.3 pg (27.0-33.0); Mean Corpuscular Volume 86.8 fL (80.0-98.0); Mean Platelet Volume 10.1 fL (9.4-12.4); Monocytes Absolute Auto 0.5 X10*3/uL (0.1-1.2); Monocytes Percent Auto 7.3 % (2-11); Neutrophils Absolute Auto 4.6 x10*3/uL (2.0-8.3); Platelet Count 243 X10*3/uL (160-400); Red Blood Count 5.01 X10*6/uL (4.60-5.80); Red Cell Distribution Width 14.4 % (11.0-16.0)
[2024-11-12 14:14] LABS: Prothrombin Time 11.4 SEC (10.9-12.4)
[2024-11-12 14:17] LABS: Partial Thromboplastin Time 31.8 SEC (26.0-36.8)
[2024-11-12 14:29] LABS: Estimated Average Glucose 97 mg/dL; Hemoglobin A1C 117.9792 umol/L; Total Hemoglobin (HGBA1C) 3776.2197 umol/L
[2024-11-12 14:32] LABS: Valproate 32.5 mcg/mL (50.0-100.0)
[2024-11-12 14:43] LABS: Alanine Aminotransferase 12 U/L (0-40); Albumin Level 4.3 g/dL (3.5-5.0); Alkaline Phosphatase 75 U/L (39-117); Anion Gap 7 (12-20); Aspartate Amino Transferase 18 U/L (5-37); Bilirubin Total 0.3 mg/dL (0.0-1.0); Blood Urea Nitrogen 9 mg/dL (9-16); Calcium 8.6 mg/dL (8.4-10.2); Carbon Dioxide 25 mmol/L (22-29); Chloride 111 mmol/L (96-108); Cholesterol 138 mg/dL (<200); Estimated Glomerular Filt Rate > 60; Glucose Random 88 mg/dL (60-115); HDL Cholesterol 38 mg/dL (>40); LDL Cholesterol Calculated 83 mg/dL (<100); Potassium 4.1 mmol/L (3.3-5.1); Sodium 139 mmol/L (135-145); Total Protein 7.2 g/dL (6.5-8.0); Triglycerides 88 mg/dL (<150)
[2024-11-12 14:59] LABS: Free T4 (Free Thyroxine) 1.11 ng/dL (0.71-1.85); Thyroid Stimulating Hormone 0.81 uIU/mL (0.32-4.0)
== END 2024-11-12 13:43 | disposition home or self-care (01) ==
LOC: HO.LAB 13:42
PROVIDERS: Visit Provider Nurse Practitioner Psychiatric/Mental Health
DX: Z79.899 Other long term (current) drug therapy (principal)
CPT/HCPCS: 36415; 80053; 80061; 80164; 83036; 84439; 84443; 85025; 85610; 85730

== ENCOUNTER 2025-08-07 18:17 | Emergency (ER) | payer MEDICAID, SELFPAY ==
--- NOTE | ~2025-08-07 | XR_ITS ---
CLINICAL HISTORY: fall, pain, swelling, cant extend 3 view right elbow Comparison: None provided Findings: No acute fractures. Normal alignment. No significant loss of joint space, osteophytes, or erosions. No joint effusion. No radiopaque foreign body. IMPRESSION: 1. No acute findings. Fracture This document has been electronically signed by: Harmony Forbes MD on 08/07/2025 19:16:44
[2025-08-07 18:43] VITALS: BP 154/85; PULSE 79; RESP 20; TEMP 36.9; O2SAT 95; BMI 30.1
--- NOTE | 2025-08-07 18:44 | ED.GENADULT ---
HPI - General Adult General Chief complaint: Fall Stated complaint: right elbow injury Related Data Home Medications ?Medication ?Instructions ?Recorded ?Confirmed buspirone 15 mg tablet 15 mg PO TID 07/26/24 07/26/24 clonidine HCl 0.1 mg tablet 0.1 mg PO BID 07/26/24 07/26/24 dicyclomine 10 mg capsule 20 mg PO TID 07/26/24 07/26/24 divalproex 500 mg tablet,delayed 1,000 mg PO BID 07/26/24 07/26/24 release (Depakote) hydroxyzine HCl 25 mg tablet 75 mg PO DIRECTED 07/26/24 07/26/24 hydroxyzine HCl 50 mg tablet 100 mg PO BEDTIME 07/26/24 07/26/24 mirtazapine 45 mg tablet 45 mg PO BEDTIME 07/26/24 07/26/24 oxcarbazepine 300 mg tablet 300 mg PO TID 07/26/24 07/26/24 Previous Rx's ?Medication ?Instructions ?Recorded gabapentin 300 mg capsule 300 mg PO BEDTIME PRN pain #30 caps 07/26/24 Allergies Allergy/AdvReac Type Severity Reaction Status Date / Time bee pollen (bee stings) Allergy Anaphylaxis Verified 08/07/25 18:46 quetiapine (From Seroquel) Allergy Chest Pain Verified 08/07/25 18:46 PMF Past Medical History Medical History SIMBA (acute kidney injury) Acute blood loss anemia Over weight Hypoalbuminemia Elevated INR Overweight Pleural effusion Thrombocytopenia Hydropneumothorax Cavitary pneumonia Sepsis with acute hypoxic respiratory failure Severe sepsis Hypoxia Pneumonia Sepsis Chest pain PTSD (post-traumatic stress disorder) Anxiety Bipolar 1 disorder Substance use disorder Social History Social History Household Members: Spouse and None Housing: House Alcohol intake: current Alcohol intake frequency: does not drink Comment: bed alarm s/p surgery Patient Tobacco Use Status: Former Tobacco user Substance Use Type: Crack/Cocaine Advance Directives: No Advance Directives Information Provided: No Do you have a plan to hurt others: No Plan service: No Current occupational status: disabled Physical Exam ED Vital Signs: BMI result Body Mass Index 30.1 Course Course Course Narrative: This is a rapid medical exam performed by Marcus Black NP: Additional HPI, ROS, PE not included below will be deferred to primary provider. Patient is a 45y/o right hand dominant male presenting with complaint of right elbow pain since last night after a fall. States he slipped on the bulkhead stairs because they were wet. Denies head strike or LOC. States he can't straighten his arm. +CMS distal, +swelling and tenderness. Plan: xray This is a rapid medical exam performed by Marcus Black NP: Additional HPI, ROS, PE not included below will be deferred to primary provider. Discharge Plan Discharge Clinical Impression: Elbow pain, right Patient Disposition: Left W/O Completing Treatment Prescriptions: No Action clonidine HCl 0.1 mg Tablet 0.1 mg PO BID hydroxyzine HCl 50 mg Tablet 100 mg PO BEDTIME oxcarbazepine 300 mg Tablet 300 mg PO TID divalproex [Depakote] 500 mg Tablet,Delayed Release (Dr/Ec) 1,000 mg PO BID mirtazapine 45 mg Tablet 45 mg PO BEDTIME hydroxyzine HCl 25 mg Tablet 75 mg PO DIRECTED Rx Instructions: Take 3 (25 mg capsules) in am and 3 (25 mg capsules) at noon dicyclomine 10 mg Capsule 20 mg PO TID buspirone 15 mg Tablet 15 mg PO TID gabapentin 300 mg capsule 300 mg PO BEDTIME PRN (Reason: pain) Qty: 30 0RF Discharge Date/Time: 08/07/25 22:40
== END 2025-08-07 22:40 | disposition left against medical advice (07) ==
PROVIDERS: Emergency Provider Emergency Medicine
DX: M25.521 Pain in right elbow (principal); Z91.81 History of falling
CPT/HCPCS: 73080; 99281; 99283

== ENCOUNTER → 2025-08-07 18:45 | Outpatient (BNV) | payer MEDICAID, SELFPAY | PROVIDERS: Visit Provider Student in an Organized Health Care Education/Training Program | DX: M25.421 Effusion, right elbow (principal); M25.521 Pain in right elbow; W19.XXXA Unspecified fall, initial encounter | CPT/HCPCS: 73080 ==